=== PATIENT | male | born 1950 | race Caucasian/White ===

== ENCOUNTER 2018-07-07 14:45 | Outpatient (REF) | payer OTHER, MEDICARE, SELFPAY ==
[2018-07-07 20:22] LABS: Anion Gap 6.9 mmol/L (3-11); BUN 20 mg/dL (7-18); CO2 29.1 mmol/L (21.0-32.0); CREATININE 1.43 mg/dL (0.70-1.30); Calcium 9.4 mg/dL (8.5-10.1); Chloride 101 mmol/L (98-107); Estimated GFR 49.18 (mL/min/1.73m2); Glucose 124 mg/dL (70-100); Potassium 4.7 mmol/L (3.5-5.1); Sodium 137 mmol/L (136-145)
[2018-07-07 21:59] LABS: COMMENT (LAB VIEW ONLY) 34.42 mg/dL; Microalb ug/mg Crea 84.3 ug/mg Cr
== END 2018-07-07 15:05 ==
LOC: NCHCN 14:45
PROVIDERS: PCP Internal Medicine; Visit Provider Internal Medicine
DX: E11.9 Type 2 diabetes mellitus without complications (principal); I10 Essential (primary) hypertension
CPT/HCPCS: 80048; 82043; 82570

== ENCOUNTER 2019-03-26 08:01 | Outpatient (REF) | payer BC, MEDICARE, SELFPAY ==
[2019-03-26 21:42] LABS: Anion Gap 10.2 mmol/L (3-11); BUN 30 mg/dL (7-18); CO2 24.8 mmol/L (21.0-32.0); CREATININE 1.47 mg/dL (0.70-1.30); Calcium 8.9 mg/dL (8.5-10.1); Chloride 103 mmol/L (98-107); Estimated GFR 47.64 (mL/min/1.73m2); Glucose 154 mg/dL (70-100); Potassium 4.7 mmol/L (3.5-5.1); Sodium 138 mmol/L (136-145)
[2019-03-26 21:55] LABS: Hemoglobin A1C 6.7 % (4.5-6.2)
== END 2019-03-26 08:21 ==
LOC: NCHCN 08:01
PROVIDERS: PCP Internal Medicine; Visit Provider Internal Medicine
DX: E11.9 Type 2 diabetes mellitus without complications (principal); I10 Essential (primary) hypertension
CPT/HCPCS: 80048; 83036

== ENCOUNTER 2019-08-08 21:53 | Outpatient (REF) | payer BC, MEDICARE, SELFPAY ==
[2019-08-08 22:28] LABS: COMMENT (LAB VIEW ONLY) 98.42 mg/dL; Microalb ug/mg Crea 81.3 ug/mg Cr
== END 2019-08-08 22:13 ==
LOC: NCHCN 21:53
PROVIDERS: PCP Internal Medicine; Visit Provider Internal Medicine
DX: E11.9 Type 2 diabetes mellitus without complications (principal); I49.1 Atrial premature depolarization
CPT/HCPCS: 82043; 82570

== ENCOUNTER 2019-09-20 10:07 | Outpatient (REF) | payer BC, MEDICARE, SELFPAY ==
[2019-09-20 22:29] LABS: Anion Gap 8.1 mmol/L (3-11); BUN 18 mg/dL (7-18); CO2 29.9 mmol/L (21.0-32.0); CREATININE 1.36 mg/dL (0.70-1.30); Calcium 9.5 mg/dL (8.5-10.1); Chloride 102 mmol/L (98-107); Estimated GFR 51.96 (mL/min/1.73m2); Glucose 143 mg/dL (74-106); Potassium 4.9 mmol/L (3.5-5.1); Sodium 140 mmol/L (136-145)
== END 2019-09-20 10:27 ==
LOC: NCHCN 10:07
PROVIDERS: PCP Internal Medicine; Visit Provider Internal Medicine
DX: E11.9 Type 2 diabetes mellitus without complications (principal); I10 Essential (primary) hypertension; E78.5 Hyperlipidemia, unspecified; N18.3 Chronic kidney disease, stage 3 (moderate)
CPT/HCPCS: 80048

== ENCOUNTER 2019-10-05 11:06 | Outpatient (REF) | payer BC, MEDICARE, SELFPAY ==
[2019-10-05 21:05] LABS: Anion Gap 7.6 mmol/L (3-11); BUN 24 mg/dL (7-18); CO2 28.4 mmol/L (21.0-32.0); CREATININE 1.54 mg/dL (0.70-1.30); Calcium 8.9 mg/dL (8.5-10.1); Chloride 101 mmol/L (98-107); Estimated GFR 45.01 (mL/min/1.73m2); Glucose 286 mg/dL (74-106); Potassium 4.6 mmol/L (3.5-5.1); Sodium 137 mmol/L (136-145)
== END 2019-10-05 11:26 ==
LOC: LBN 11:06
PROVIDERS: PCP Internal Medicine; Visit Provider Internal Medicine
DX: I10 Essential (primary) hypertension (principal)
CPT/HCPCS: 80048

== ENCOUNTER 2019-11-01 12:31 | Outpatient (REF) | payer BC, MEDICARE, SELFPAY ==
[2019-11-01 21:24] LABS: Anion Gap 8.1 mmol/L (3-11); BUN 19 mg/dL (7-18); CO2 29.9 mmol/L (21.0-32.0); Calcium 9.6 mg/dL (8.5-10.1); Chloride 102 mmol/L (98-107); Estimated GFR 54.73 (mL/min/1.73m2); Glucose 126 mg/dL (74-106); Sodium 140 mmol/L (136-145)
== END 2019-11-01 12:51 ==
LOC: NCHCN 12:31
PROVIDERS: PCP Internal Medicine; Visit Provider Internal Medicine
DX: I10 Essential (primary) hypertension (principal)
CPT/HCPCS: 80048

== ENCOUNTER 2020-08-21 21:50 | Outpatient (REF) | payer BC, MEDICARE, SELFPAY ==
[2020-08-21 22:19] LABS: COMMENT (LAB VIEW ONLY) 26.31 mg/dL
[2020-08-21 22:21] LABS: Microalb ug/mg Crea 125.4 ug/mg Cr
== END 2020-08-21 22:10 ==
LOC: NCHCN 21:50
PROVIDERS: PCP Internal Medicine; Visit Provider Internal Medicine
DX: I10 Essential (primary) hypertension (principal); E11.9 Type 2 diabetes mellitus without complications; R80.9 Proteinuria, unspecified
CPT/HCPCS: 82043; 82570

== ENCOUNTER 2020-12-12 08:04 | Outpatient (REF) | payer OTHER, MEDICARE, SELFPAY ==
[2020-12-12 13:47] LABS: Hemoglobin A1C 6.1 % (<5.7)
[2020-12-12 15:07] LABS: ALT 27 U/L (16-63); AST 18 U/L (15-37); Albumin 4.3 g/dL (3.4-5.0); Alkaline Phosphatase 106 U/L (46-116); Anion Gap 11.1 mmol/L (3-11); BUN 21 mg/dL (7-18); Bilirubin, Total 0.5 mg/dL (0.2-1.0); CO2 27.9 mmol/L (21.0-32.0); CREATININE 1.4 mg/dL (0.70-1.30); Calcium 8.7 mg/dL (8.5-10.1); Calculated LDL 68 mg/dL (<100); Chloride 104 mmol/L (98-107); Cholesterol 122 mg/dL (<200); Glucose 107 mg/dL (74-106); HDL Cholesterol 44 mg/dL (40-60); Potassium 4.5 mmol/L (3.5-5.1); Sodium 143 mmol/L (136-145); Total Protein 7.6 g/dL (6.4-8.2); Triglyceride 51 mg/dL (<150)
== END 2020-12-12 08:05 | disposition home or self-care (01) ==
LOC: NCHCN 08:04
PROVIDERS: PCP Internal Medicine; Visit Provider Internal Medicine
DX: E11.9 Type 2 diabetes mellitus without complications (principal); E78.5 Hyperlipidemia, unspecified
CPT/HCPCS: 80053; 80061; 83036

== ENCOUNTER 2021-12-24 20:40 | Outpatient (REF) | payer OTHER, MEDICARE, SELFPAY ==
[2021-12-24 21:24] LABS: Anion Gap 5.2 mmol/L (3-11); BUN 21 mg/dL (7-18); CO2 30.8 mmol/L (21.0-32.0); CREATININE 1.4 mg/dL (0.70-1.30); Calcium 9.4 mg/dL (8.5-10.1); Chloride 104 mmol/L (98-107); Estimated GFR 49.96 (mL/min/1.73m2); Glucose 71 mg/dL (74-106); Potassium 4.4 mmol/L (3.5-5.1); Sodium 140 mmol/L (136-145)
[2021-12-24 21:28] LABS: Hemoglobin A1C 6.3 % (<5.7)
[2021-12-24 21:46] LABS: COMMENT (LAB VIEW ONLY) 80.09 mg/dL
[2021-12-24 21:48] LABS: Microalb ug/mg Crea 171.9 ug/mg Cr
== END 2021-12-24 20:41 | disposition home or self-care (01) ==
LOC: NCHCN 20:40
PROVIDERS: PCP Internal Medicine; Visit Provider Internal Medicine
DX: N18.30 Chronic kidney disease, stage 3 unspecified (principal); E11.9 Type 2 diabetes mellitus without complications
CPT/HCPCS: 80048; 82043; 82570; 83036

== ENCOUNTER 2022-05-17 16:01 | Outpatient (REF) | payer OTHER, MEDICARE, SELFPAY ==
[2022-05-17 15:35] LABS: HCT 46.7 % (40.0-50.0); MCH 30.5 pg (27.0-33.0); MCHC 34.3 % (32.0-36.0); MCV 89 fL (80-95); Platelet Count 199 10^3/uL (130-400); RBC 5.25 10^6/uL (4.36-5.78); RDW 13.2 % (11.8-14.1); RDW-SD 42.7 fL; WBC 5.21 10^3/uL (4.4-10.8)
[2022-05-17 15:46] LABS: ALT 13 U/L (16-63); AST 20 U/L (15-37); Albumin 4.2 g/dL (3.4-5.0); Alkaline Phosphatase 95 U/L (46-116); Anion Gap 7.4 mmol/L (3-11); BUN 21 mg/dL (7-18); Bilirubin, Total 0.7 mg/dL (0.2-1.0); CO2 29.6 mmol/L (21.0-32.0); CREATININE 1.4 mg/dL (0.70-1.30); Calcium 9.3 mg/dL (8.5-10.1); Chloride 103 mmol/L (98-107); Glucose 137 mg/dL (74-106); Potassium 4.6 mmol/L (3.5-5.1); Sodium 140 mmol/L (136-145); TSH 2.25 uIU/mL (0.36-3.74); Total Protein 7.2 g/dL (6.4-8.2)
== END 2022-05-17 16:02 | disposition home or self-care (01) ==
LOC: NCHCN 16:01
PROVIDERS: PCP Internal Medicine; Visit Provider Internal Medicine
DX: R53.83 Other fatigue (principal)
CPT/HCPCS: 80053; 85027; 84443

== ENCOUNTER 2023-01-12 13:04 | Outpatient (REF) | payer OTHER, MEDICARE, SELFPAY ==
[2023-01-12 15:03] LABS: COMMENT (LAB VIEW ONLY) 49.67 mg/dL
[2023-01-12 15:10] LABS: Microalb ug/mg Crea 305.4 ug/mg Cr
== END 2023-01-12 13:05 | disposition home or self-care (01) ==
LOC: NCHCN 13:04
PROVIDERS: PCP Internal Medicine; Visit Provider Internal Medicine
DX: E11.9 Type 2 diabetes mellitus without complications (principal); I25.10 Atherosclerotic heart disease of native coronary artery without angina pectoris
CPT/HCPCS: 82043; 82570

== ENCOUNTER 2023-04-08 15:24 | Outpatient (REF) | payer OTHER, MEDICARE, SELFPAY ==
[2023-04-08 16:31] LABS: Hemoglobin A1C 6.1 % (<5.7)
[2023-04-08 18:17] LABS: ALT 35 U/L (16-63); AST 26 U/L (15-37); Albumin 4.7 g/dL (3.4-5.0); Alkaline Phosphatase 108 U/L (46-116); Anion Gap 8.7 mmol/L (3-11); BUN 20 mg/dL (7-18); Bilirubin, Total 0.8 mg/dL (0.2-1.0); CO2 29.3 mmol/L (21.0-32.0); CREATININE 1.3 mg/dL (0.70-1.30); Calcium 9.8 mg/dL (8.5-10.1); Calculated LDL 73 mg/dL (<100); Chloride 101 mmol/L (98-107); Cholesterol 144 mg/dL (<200); Estimated GFR 58.37 (mL/min/1.73m2); Glucose 108 mg/dL (74-106); HDL Cholesterol 51 mg/dL (40-60); Potassium 4.8 mmol/L (3.5-5.1); Sodium 139 mmol/L (136-145); Total Protein 8.5 g/dL (6.4-8.2); Triglyceride 102 mg/dL (<150); Vitamin B12 268 pg/mL (193-986)
== END 2023-04-08 15:25 | disposition home or self-care (01) ==
LOC: NCHCN 15:24
PROVIDERS: PCP Internal Medicine; Visit Provider Internal Medicine
DX: E11.9 Type 2 diabetes mellitus without complications (principal); E78.5 Hyperlipidemia, unspecified; I10 Essential (primary) hypertension; R27.9 Unspecified lack of coordination
CPT/HCPCS: 80053; 80061; 82607; 83036

== ENCOUNTER 2024-01-06 14:55 | Outpatient (REF) | payer OTHER, MEDICARE, SELFPAY ==
[2024-01-06 14:53] LABS: COMMENT (LAB VIEW ONLY) 75.75 mg/dL; Microalb ug/mg Crea 129.6 ug/mg Cr
== END 2024-01-06 14:56 | disposition home or self-care (01) ==
LOC: NCHCN 14:55
PROVIDERS: PCP Internal Medicine; Visit Provider Internal Medicine
DX: E11.9 Type 2 diabetes mellitus without complications (principal)
CPT/HCPCS: 82043; 82570

== ENCOUNTER 2024-03-27 17:18 | Outpatient (REF) | payer OTHER, MEDICARE, SELFPAY ==
[2024-03-27 14:58] LABS: HCT 43.4 % (40.0-50.0); HGB 14.8 g/dL (13.5-17.5); MCH 30.4 pg (27.0-33.0); MCHC 34.1 % (32.0-36.0); MCV 89 fL (80-95); MPV 9.6 fL (8.0-11.0); Platelet Count 224 10^3/uL (130-400); RBC 4.87 10^6/uL (4.36-5.78); RDW 12.9 % (11.8-14.1); RDW-SD 42.2 fL
[2024-03-27 15:51] LABS: ALT 24 U/L (16-63); AST 17 U/L (15-37); Albumin 4.1 g/dL (3.4-5.0); Alkaline Phosphatase 99 U/L (46-116); Anion Gap 7.2 mmol/L (3-11); BUN 24 mg/dL (7-18); CO2 29.8 mmol/L (21.0-32.0); CREATININE 1.4 mg/dL (0.70-1.30); Calcium 9.6 mg/dL (8.5-10.1); Calculated LDL 55 mg/dL (<100); Chloride 103 mmol/L (98-107); Cholesterol 108 mg/dL (<200); Estimated GFR 53.07 (mL/min/1.73m2); Glucose 108 mg/dL (74-106); HDL Cholesterol 40 mg/dL (40-60); Potassium 5.1 mmol/L (3.5-5.1); Sodium 140 mmol/L (136-145); Total Protein 7.5 g/dL (6.4-8.2); Triglyceride 65 mg/dL (<150)
[2024-03-27 16:03] LABS: Hemoglobin A1C 6.3 % (<5.7)
--- OUTSIDE RECORDS SUMMARY | 2024-03-27 17:24 | XMS_ITS | Clinical Summary ---
Author Organization [facility] Address [address] [place] [address] Care Team Providers Care Hand Ii Thermal Cutter Name Role Phone KristaJessie Frank Primary Care Provider [phone] Malini Euceda MD Unavailable [phone] Allergies No known active allergies Medications Medication Sig Dispensed Refills Start Date End Date Status TRULICITY 0.75 mg/0.5 mL subcutaneous penIndications:ty pe 2 diabetes mellitus Inject 0.75 mg into the skin once a week. On Sundays 0 Active ONETOUCH ULTRASOFT LANCETS 0 Active ONETOUCH ULTRA BLUE TEST STRIP test strips 0 Active metFORMIN (GLUCOPHAGE) 1,000 mg tabletIndications :type 2 diabetes mellitus Take 1 Tablet by mouth every morning. Active metFORMIN (GLUCOPHAGE) 1,000 mg tabletIndications :type 2 diabetes mellitus Take 0.5 Tablets by mouth every evening. Active atorvastatin (LIPITOR) 40 mg tabletIndications :hyperlipidemia Take 1 Tablet by mouth every evening. 90 Tablet 3 2 Active [id number]-F chet Oil (FISH OIL) 1,200 (144-216) mg capsule Take 1,200 mg by mouth daily. 2 Active nitroglycerin (NITROSTAT) 0.[address] 1 Tablet under the tongue every 5 minutes as needed for Chest Pain. (if needing to take 3rd tablet, call 911) 25 Tablet 5 3 Active losartan (COZAAR) 25 mg tablet Take 2 Tablets by mouth daily. Active cyanocobalamin, vitamin B-12, 1,000 mcg capsule Take 1,000 mcg by mouth daily. Active magnesium oxide (MAG-OX) 400 mg (241.3 mg magnesium) tablet Take 1 Tablet by mouth daily. Active dilTIAZem (CARDIZEM) 30 mg tabletIndications :Paroxysmal atrial fibrillation ([facility]) Take 1 Tablet by mouth 4 times daily as needed for Other (for atrial fibrillaiton > 100 bpm). 30 Tablet 3 3 Active dilTIAZem (CARDIZEM CD) 120 mg capsuleIndication s:Paroxysmal atrial fibrillation ([facility]) Take 1 Capsule by mouth daily. 90 Capsule 3 3 Active apixaban (ELIQUIS) 5 mg tabletIndications :Atrial flutter, unspecified type ([facility]) Take 1 Tablet by mouth 2 times daily. 180 Tablet 3 3 Active TAMSulosin (FLOMAX) 0.4 mg capsule Take 1 Capsule by mouth daily. 90 Capsule 4 Active fluorouracil (EFUDEX) 5 % cream Apply topically 2 times daily. to scalp and face for up to 2- 3 weeks. May stop when significant redness occurs. KEEP AWAY FROM CHILDREN AND PETS 40 g 1 4 Active TAMSulosin (FLOMAX) 0.4 mg capsule Take 1 Capsule by mouth daily. 90 Capsule 1 4 03/14/20 24 Discontinued Active Problems Patient Care Coordination No te Formatting of this note migh t be different from the original. 09/16/21- [facility] MGP VERBAL JERONIMO (PERM TO SPEAK) STARR GARNICA (), MANDY GARNICA (DAUGHTER). Problem Noted Date Diagnosed Date Paroxysmal atrial fibrillation ([facility]) 024 Atrial fibrillation with rap id ventricular response ([facility]) 04/19/2023 Atrial fibrillation with RVR ([facility]) 3 Elevated troponin 04/19/2023 Acute renal insufficiency 04/19/2023 Coronary artery disease invo lving hoopa coronary artery of hoopa heart without angina pectoris 11/06/2021 Nonrheumatic aortic valve stenosis 11/06/2021 ST elevation myocardial infarction (STEMI) ([facility]) 08/26/2021 Hyperlipidemia 01/29/2014 DM (diabetes mellitus), secondary (HCC-CMS) 01/04 HTN (hypertension) 01/29/2014 BBB (bundle branch block) 01/29/2014 Benign prostatic hyperplasia with urinary retent ion 01/29/2014 Encounters Date Type Department Care Team Description 03/27/[address] [phone] David Bhatt, DO Appointment Related 03/26/2024 8:30 EDT Office Visit [facility] Dermatology 5th Floor [address] [phone] Sameer Murray MD Actinic keratosis (Primary Dx); Lentigines; Seborrheic keratoses 03/14/[address] [phone] David Bhatt, DO Results; Returning Call 03/14/[address] [phone] David Bhatt, Appointment Related 03/14/[address] [phone] David Bhatt, DO Medications Refill 02/14/2024 Telephone [facility] [address] [place] [address] Malini Euceda MD Appointment Related 02/10/2024 13:00 EDT Office Visit [address] [phone] David Bhatt, DO Urothelial cancer ([facility]) (Primary Dx); Benign prostatic hyperplasia with urinary retention; BPH with obstruction/lower urinary tract symptoms; Hematuria, gross 02/09/2024 12:22 EDT - 02/09/2024 23:59 EDT Hospital Encounter [facility] Ultrasound [address] [place] [address] Gross hematuria Discharge Disposition: Home or Self Care 02/08/2024 Orders Only [facility] Urology [address] [phone] David Bhatt, DO Benign prostatic hyperplasia with urinary retention (Primary Dx) 01/26/2024 10:12 EDT - 01/26/2024 23:59 EDT Hospital Encounter [facility] Radiology CT Outpatient - [address] [phone] Paroxysmal atrial fibrillation (HCC-CMS) Discharge Disposition: Home or Self Care 01/16/2024 15:15 EDT Phlebotomy Only [facility] - Outpatient Phlebotomy Drawing [address] [place] [address] Lab, [facility] Op Phlebotomy Gross hematuria 01/16/[address] [phone] David Bhatt, Hematuria 01/04/2024 11:00 EDT Office Visit [facility] [address] [place] [address] Malini Euceda MD Atrial fibrillation with rapid ventricular response (HCC-CMS) (Primary Dx) 12/28/[address] [phone] David Bhatt DO Appointment Related from Last 3 Months Immunizations Name Administration Dates Next Due Covid-19 mRNA Vaccine (PFIZE R COVID-19) PF 0.3 ml IM (12 yrs+) 06/17/2021,12/05/2020,11/14/2020 Historical Hepatitis A Vaccine, Unspecified 06/07,05/16/2006 Historical Polio Vaccine, Unspecified 07/04/2006 ,05/16/2006 Historical Tetanus Diphtheri a Vaccine, Unspecified 07/04/2006,05/16/2006 Historical Typhoid Vaccine, Unspecified 05/16/20 06 Influenza Vaccine =>3yo Split IM 06/27/2013 Influenza Vaccine High Dose (FLUZONE HIGH DOSE) PF 0.7 ml IM (65 yrs+) 06/02/2020 Influenza Vaccine MDCK Quad (FLUCELVAX) PF 0.5 ml IM (6 mos+) 08/08/2019 Influenza Vaccine Quad (FLUZ ONE) MDV w/preserv 0.5 ml IM (6 mos+) 07/07/2018,05/25/2017 Pneumococcal Conjugate Vacci ne 13-Valent (PCV13) (PREVNAR-13) 0.5 mL IM (6 wks+) 06/18/2016 Pneumococcal Polysaccharide (PPSV23) Vaccine (PNEUMOVAX-23) =>2YO SQ/IM 05/23/2020,08/04/2012 Td (Adult) 5 Lf Vaccine (TEN IVAC) Preservative Free =>7yo IM 10/14/2016 Yellow Fever Vaccine SQ 05/16/2006 Zostavax (Zoster Vaccine, Live) SQ 08/04/2012 Surgical History Surgery Date Site/Laterality Comments ELECTRICAL CARDIOVERSION 04/20/2023 Medical History Medical History Date Comments Diabetes mellitus (HCC-CMS) Hypertension Hyperlipidemia BPH (benign prostatic hyperplasia) Social History Tobacco Use Types Packs/Day Years Used Date Smoking Tobacco: Never Smokeless Tobacco: Never Tobacco Cessation:Counseling Given: Not Answered Alcohol Use Standard Drinks/Week Comments Yes 0 (1 standard drink = 0.6 oz pur e alcohol) 1-2 beers on the weekend AUDIT-C Answer Date Recorded Q1: How often do you have a drink containing alc ohol? Not asked 06/18/2020 Q2: How many drinks containi ng alcohol do you have on a typical day when you are drinking? 1 or 2 06/18/2020 Q3: How often do you have six or more drinks on one occasion? Weekly 06/18/2020 Interpersonal Safety Answer Date Record ed Physically Hurt Never 04/06/2020 Verbally Threaten Not on file 04/06/2020 Sex and Gender Information Value Date Recorded Sex Assigned at Not on file Gender Identity Male 08/26/2021 11:28 EST Sexual Orientation Not on file Obstetrics History Last Filed Vital Signs Vital Sign Reading Time Taken Comments Blood Pressure 140/82 01/04/2024 1050 EDT Pulse 86 01/04/2024 1050 EDT Temperature 36.4 ??C (97.6 ??F) 07/24/2023 0205 EST Respiratory Rate 8 07/24/2023 1000 EST Oxygen Saturation 98% 01/04/2024 1050 EDT Inhaled Oxygen Concentration - - Weight 96.6 kg (213 lb) 01/04/2024 1050 EDT Height 182.9 cm (6' 0.01) 01/04/2024 1050 EDT Body Mass Index 28.88 01/04/2024 1050 EDT Plan of Treatment Upcoming Encounters Date Type Department Care Team (Late st Contact Info) Description 04/02/2024 11:15 EDT Telemedicine [facility] Urology - [address] [phone] David Bhatt, [address] [facility] [address] [place] [phone] 07/12/2024 12:30 EST Hospital Encounter [place] [address] [facility] [address] [place] [phone] Rodrigo Noyola MD [address] [place] [phone] Paroxysmal atrial fibrillation ([facility]) 07/12/2024 12:30 EST - 07/12/2024 17:00 EST Surgery [place] [address] [facility] [address] [place] [address] [phone] Rodrigo Noyola MD [address] [place] [phone] Albation A-Fib [[id number] (CPT??)] 07/23/2024 11:00 EST Office Visit [facility] [address] [place], [place] [address] Malini Euceda MD [address] [place] [phone] Health Maintenance Due Date Last Done Comments Eye Exam 1950 Foot Exam 1950 Hemoglobin A1C (Ha1C) 1950 Hepatitis C Screen 1950 Microalbumin/Creatinine Ratio 1950 RSV Immunization ( o r 60+ Years) (1 - 1-dose 60+ series) 2010 Advance Directive Review 01/29/2019 COVID-19 Vaccine ( - 2022-2 4 season) 2023 06/17/2021, 12/05/2020, 11/14/2020 Lipid Profile Screening (Cholesterol) 03/28/2024 03/28/2023, 11/13/2021, 08/27/2021 Fall Risk Screening 01/03/2025 01/04/2024, 03/28/2023, 11/06/2021, Additional history exists Procedures Procedure Name Priority Date/Time Associated Diagnosis Comments POCT URINE DIPSTICK, CLINITEK Routine 02/10/2024 12:57 EDT Benign prostatic hyperplasia with urinary retention NON BIOFUELS ENGINEERING MANAGER/FNA CYTOLOGY Routine 02/10/2024 12:52 EDT Benign prostatic hyperplasia with urinary retention Hematuria, gross POCT CSN BARCODE URINE DIPSTICK Routine 02/10/2024 12:44 EDT Benign prostatic hyperplasia with urinary retention POCT URINE CLINITEK (DIPSTICK) - DOES NOT REFLEX Routine 02/10/2024 12:44 EDT Benign prostatic hyperplasia with urinary retention US RENAL/BLADDER COMPLETE Routine 02/09/2024 12:[address] CARDIAC ANGIO PULMONARY VEIN Routine 01/26/2024 11:03 EDT Paroxysmal atrial fibrillation (HCC-CMS) POCT CREATININE, ISTAT Routine 01/26/2024 10:44 EDT URINE CHEMICAL (DIP) & SEDIMENT (MICRO) WITHOUT REFLEX TO CULTURE Routine 01/16/2024 15:16 EDT Gross hematuria BACTERIAL CULTURE, URINE Routine 01/16/2024 15:16 EDT Gross hematuria LIPID PROFILE (INCLUDES CHOLESTEROL, TRIGLYCERIDES, HDL, LDL) Routine 03/28/2023 16:03 EDT Nonrheumatic aortic valve stenosis Acute coronary thrombosis not resulting in myocardial infarction ([facility]) from Last 3 Months or Most Recently Relevant to Health Maintenance Results * (ABNORMAL) POCT URINE DIPSTICK, CLINITEK (02/10/2024 12:57 EDT) Color, UA Yellow Yellow 02/10/2024 12:59 [facility] Clarity, UA Clear Clear 02/10/2024 12:59 [facility] Glucose, UA Negative Negative mg/dL 02/10/2024 12:59 [facility] Bilirubin, UA Negative Negative 02/10/2024 12:59 [facility] Ketones, UA Negative Negative 02/10/2024 12:59 [facility] Specific [place], Urine 1.015 1.001 - 1.030 02/10/2024 12:59 [facility] Blood, UA 2+(A) Negative 02/10/2024 12:59 [facility] pH, UA 7.0 <8.5 02/10/2024 12:59 [facility] Protein, UA 1+(A) Negative mg/dL 02/10/2024 12:59 [facility] Urobilinogen, UA 0.2 0.2 - 1.0 mg/dL 02/10/2024 12:59 [facility] Nitrite, UA Negative Negative 02/10/2024 12:59 [facility] Leuk Esterase 3+(A) Negative 02/10/2024 12:59 [facility] HN LAB COMMENT (CLINITEK, UR) Test performed at [facility] 02/10/2024 12:59 [facility] Urine URINE SPECIMEN OBTAINED BY CLEAN CATCH PROCEDURE / Unknown 02/10/2024 12:57 EDT 02/10/2024 12:59 EDT David Bhatt DO POINT OF CARE TEST ORDERABLES [facility] [address] [place], [place] [phone] * NON BIOFUELS ENGINEERING MANAGER/FNA CYTOLOGY (02/10/2024 12:52 EDT) Note to Patient The following pathology results have been interpreted by your pathologist and may be available to you before your health provider has had the opportunity to review them. Please allow time for your provider to receive these results and explore management options, if applicable. 02/14/2024 12:20 EDT [facility] Final Diagnosis A. URINE, VOIDED, CYTOLOGIC EVALUATION: - Negative for high grade urothelial carcinoma. - Rare urothelial cells and abundant acute inflammation present. 02/14/2024 12:20 EDT [facility] Attestation There was significant resident/fellow involvement in the diagnostic evaluation of this case. By the signature below, the attending physician certifies that they have personally conducted a gross and/or microscopic examination of the described specimens and rendered or confirmed the above diagnosis. 02/14/2024 12:20 T [facility] at 1220 Clinical History no sxs; gross hematuria 02/14/2024 12:20 [facility] Gross Description A. 100cc's of opaque yellow fluid were received and processed by selective cellular enhancement technique. 02/14/2024 12:20 EDT [facility] Resident/Francisco w: Amena Tate MD 02/14/2024 12:20 T [facility] Performing Lab [facility] 02/14/2024 12:20 T [facility] Scanned Images 02/14/2024 12:20 T [facility] Urine URINE SPECIMEN FROM URETHRA / Unknown Urine Collect / Unknown 02/10/2024 12:52 EDT 02/13/2024 6:46 EDT David Bhatt DO PATHOLOGY ORDERABLE S Performing Organization Address City/[facility]/ZIP Co de Phone Number [facility] [address] [place] [address] * POCT CSN BARCODE URINE DIPSTICK (02/10/2024 12:44 EDT) Urine URINE SPECIMEN OBTAINED BY CLEAN CATCH PROCEDURE / Unknown 02/10/2024 12:44 EDT 02/10/2024 12:44 EDT David Bhatt DO LAB INFO SERVICE AN D SUPPORT & PHONE RESULT Performing Organization Address [facility] Co de Phone Number [facility] [address] [place] [address] * US RENAL/BLADDER COMPLETE (02/09/2024 12:53 EDT) Anatomical Region Laterality Modality Abdomen, Body Ultrasound 02/10/2024 16:5 1 EDT Impressions 02/10/2024 16:51 EDT 1. Bilateral renal cysts. 2. Post void residual urinary bladder volume of 556 mL. 3. Generalized urinary bladder wall thickening which has an irregular-corrugated appearance. 4. Mild prostatomegaly, incompletely visualized. [id number] Narrative 02/10/2024 16:51 EDT US RENAL/BLADDER COMPLETE ??02/09/2024 12:29 PM SIGNS AND SYMPTOMS/COMMENTS: gross hematuria;R31.0:Gross hematuria COMPARISON: CT scan of the abdomen and pelvis 01/11/2022 and abdominal ultrasound 11/13/2013. TECHNIQUE: Grayscale and Doppler ultrasound evaluation of the kidneys and bladder was performed. FINDINGS: RIGHT KIDNEY: The right kidney measures 10.9 cm in length. 11 mm simple cyst in the right kidney upper pole. No other focal renal lesion, renal stone or hydronephrosis. LEFT KIDNEY: The left kidney measures 9.7 cm in length. Left renal simple cyst measuring 10 mm and 14 mm. No other focal renal lesion, renal stone or hydronephrosis. URINARY BLADDER: The prevoid bladder volume is 747 mL. The post void urinary bladder volume is 556 mL. There is generalized thickening of the urinary bladder wall which has an irregular/corrugated appearance. Both ureteral jets are visualized. There is indentation of the base of the urinary bladder by a slightly enlarged prostate. Resulting Agency Comment [id number] Procedure Note Fito Gurrola MD - 02/10/2024 US RENAL/BLADDER COMPLETE 02/09/2024 12:29 PM SIGNS AND SYMPTOMS/COMMENTS: gross hematuria;R31.0:Gross hematuria COMPARISON: CT scan of the abdomen and pelvis 01/11/2022 and abdominalultrasound 11/13/2013. TECHNIQUE: Grayscale and Doppler ultrasound evaluation of the kidneys andbladder was performed. FINDINGS: RIGHT KIDNEY: The right kidney measures 10.9 cm in length. 11 mm simplecyst in the right kidney upper pole. No other focal renal lesion, renalstone or hydronephrosis. LEFT KIDNEY: The left kidney measures 9.7 cm in length. Left renal simplecyst measuring 10 mm and 14 mm. No other focal renal lesion, renal stoneor hydronephrosis. URINARY BLADDER: The prevoid bladder volume is 747 mL. The post voidurinary bladder volume is 556 mL. There is generalized thickening of theurinary bladder wall which has an irregular/corrugated appearance. Bothureteral jets are visualized. There is indentation of the base of theurinary bladder by a slightly enlarged prostate. IMPRESSION 1. Bilateral renal cysts. 2. Post void residual urinary bladder volume of 556 mL. 3. Generalized urinary bladder wall thickening which has anirregular-corrugated appearance. 4. Mild prostatomegaly, incompletely visualized. [id number] David Bhatt DO IMG US ORDERABLES * CT CARDIAC PULMONARY VEIN (01/26/2024 11:03 EDT) Anatomical Region Laterality Modality Chest Computed Tomogra phy 01/26/2024 11:3 3 EDT Narrative 01/26/2024 11:[address] CARDIAC PULMONARY VEIN ??01/26/2024 10:32 AM Clinical History/Comments: AF;I48.0:Paroxysmal atrial fibrillation (HCC-CMS) Technique: CTA of the heart was performed with ECG-gating and with the intravenous administration of contrast material. Images were reconstructed at the 30-35-40-45% phases of the cardiac cycle. 3D advanced post-processing was performed utilizing a combination of MIP and MPR techniques with physician participation and supervision. This CT used either dose modulation and/or iterative reconstruction techniques to lower radiation dose. Comparison: None. Findings: CT of the chest with contrast performed tailored for left atrium and pulmonary vein opacification. The left atrium is dilated. The maximum anterior to posterior diameter measurement is 5.0 cm. The pulmonary veins demonstrate variant anatomy. There is independent ostium of the right inferior pulmonary vein (superior segment). There is independent ostium of the right middle pulmonary vein. No aberrant pulmonary veins are seen. Esophagus courses posterior to the left atrium. The left atrial appendage is well opacified and without thrombus. Additional findings: There is mild coronary artery atherosclerosis. Aortic annular and valvular calcifications are present. Ascending aorta is normal in caliber measuring approximately 3.8 cm. The Main pulmonary artery measures 2.8 cm. There is no pericardial effusion. Small hiatal hernia is present. Respiratory motion artifact is present. There are no suspicious pulmonary nodules. [id number] Resulting Agency Comment [id number] Procedure Note Cassandra Bach MD - 01/26/2024 CT CARDIAC PULMONARY VEIN 01/26/2024 10:32 AM Clinical History/Comments: AF;I48.0:Paroxysmal atrial fibrillation ([facility]) Technique: CTA of the heart was performed with ECG-gating and with the intravenousadministration of contrast material. Images were reconstructed at rnc20-18-97-45% phases of the cardiac cycle. 3D advanced post-processing wasperformed utilizing a combination of MIP and MPR techniques with physicianparticipation and supervision. This CT used either dose modulation and/or iterative reconstructiontechniques to lower radiation dose. Comparison: None. Findings: CT of the chest with contrast performed tailored for left atrium andpulmonary vein opacification. The left atrium is dilated. The maximum anterior to posterior diametermeasurement is 5.0 cm. The pulmonary veins demonstrate variant anatomy. There is independentostium of the right inferior pulmonary vein (superior segment). There isindependent ostium of the right middle pulmonary vein. No aberrantpulmonary veins are seen. Esophagus courses posterior to the leftatrium. The left atrial appendage is well opacified and without thrombus. Additional findings: There is mild coronary artery atherosclerosis. Aortic annular and valvularcalcifications are present. Ascending aorta is normal in caliber measuringapproximately 3.8 cm. The Main pulmonary artery measures 2.8 cm. There is no pericardial effusion. Small hiatal hernia is present. Respiratory motion artifact is present.There are no suspicious pulmonary nodules. [id number] Rodrigo Noyola MD IMG CT ORDERABLE S * (ABNORMAL) POCT CREATININE, ISTAT (01/26/2024 10:44 EDT) [facility] Creatinine, Venous, i-STAT 1.5(H) 0.7 - 1.3 mg/dL 01/26/2024 10:46 EDT [facility] eGFR, Calculated, i-STAT 49(L) >60 mL/min/1.7 3m2 01/26/2024 10:46 EDT [facility] Blood VENOUS BLOOD / Unknown 01/26/2024 10:44 EDT 01/26/2024 10:46 EDT Narrative [facility] - 01/26/2024 10:46 EDT Test Performed by Radiology Imaging Provider Unknown POINT OF CARE TEST O RDERABLES [facility] [address] [place] [address] * (ABNORMAL) UA CHEMICAL & SEDIMENT (01/16/2024 15:16 EDT) Color UA Yellow Colorless, Yellow 01/16/2024 17:49 EDT [facility] Clarity UA Cloudy(A) Clear 01/16/2024 17:49 EDT [facility] Glucose UA Negative Negative mg/dL 01/16/2024 17:49 EDT [facility] Bilirubin UA Negative Negative 01/16/2024 17:49 EDT [facility] Ketones UA Negative Negative 01/16/2024 17:49 EDT [facility] Specific [place], Urine 1.020 1.001 - 1.030 01/16/2024 17:49 [facility] Blood UA 3+(A) Negative 01/16/2024 17:49 [facility] Nitrite UA Negative Negative 01/16/2024 17:49 [facility] Leukocyte Esterase UA 1+(A) Negative 01/16/2024 17:49 [facility] Protein UA Trace(A) Negative mg/dL 01/16/2024 17:49 [facility] pH, UA 6.0 <8.5 01/16/2024 17:49 [facility] Urine RBC Count, Manual >50(A) 0 - 2 Cells/HPF 01/16/2024 17:49 [facility] Urine WBC Count >50(A) 0 - 3 Cells/HPF 01/16/2024 17:49 [facility] Urine Squamous Count, Manual None Seen None Seen Cells/HPF 01/16/2024 17:49 [facility] Urine Hyaline Cast Count, Manual <=10 <=10 Casts/LPF 01/16/2024 17:49 [facility] Urine Bacteria Count, Manual Moderate(A) None Seen Bacteria/HP F 01/16/2024 17:49 [facility] Urobilinogen UA 0.2 0.2-1.0 mg/dL mg/dL 01/16/2024 17:49 [facility] Urine URINE SPECIMEN OBTAINED BY CLEAN CATCH PROCEDURE / Unknown Urine Collect / Unknown 01/16/2024 15:16 EDT 01/16/2024 17:[address] [facility] - 01/16/2024 17:49 EDT Urine Sediment Analysis results are unreliable on urines that are unrefrigerated for >2 hrs or refrigerated >8 hrs. David Bhatt DO URINALYSIS ORDERABL ES [facility] [address] [place] [address] * BACTERIAL CULTURE, URINE (01/16/2024 15:16 EDT) Pathologist [facility] Organism ID No Growth VITEK SUSCEPTIBILITY 01/18/2024 11:15 EDT [facility] Urine URINE SPECIMEN OBTAINED BY CLEAN CATCH PROCEDURE / Unknown Urine Collect / Unknown 01/16/2024 15:16 EDT 01/16/2024 17:12 EDT David Bhatt DO MICROBIOLOGY - GENE RAL ORDERABLES Performing Organization Address City/State/[facility] Co de Phone Number [facility] [address] [place] [address] * LIPID PROFILE (INCLUDES CHOLESTEROL, TRIGLYCERIDES, HDL, LDL) (03/28/2023 16:03 EDT) Pathologist [facility] Cholesterol 127 <200 mg/dL 03/28/2023 17:07 [facility] Comment:Note that therapeuti c goals will differ between patients based on cardiac risk factors and current medical therapy. HDL 43 >=40 mg/dL 03/28/2023 17:07 [facility] Comment:Note that therapeuti c goals will differ between patients based on cardiac risk factors and current medical therapy. LDL, Calculated 58 <160 mg/dL 17:07 [facility] Comment:Note that therapeuti c goals will differ between patients based on cardiac risk factors and current medical therapy. Triglyceride 130 <=150 mg/dL 03/28/2023 17:07 [facility] Comment:Note that therapeuti c goals will differ between patients based on cardiac risk factors and current medical therapy. Chol/HDL Ratio 3.0 See Note 03/28/2023 17:07 [facility] Comment: NOTE: Desirable Ratio = <4.1 Patient At Risk Ratio = >5.0(Males) ?>6.0(Females) Non HDL Cholesterol 84 <160 mg/dL 03/28/2023 17:07 [facility] Comment:Note that therapeuti c goals will differ between patients based on cardiac risk factors and current medical therapy. Blood VENOUS BLOOD / Unknown Venipuncture / Unknown 03/28/2023 16:03 EDT 03/28/2023 16:30 EDT Malini Euceda MD CHEMISTRY & BLOOD GA S ORDERABLES [facility] [address] [place] [address] from Last 3 Months or Most Recently Relevant to Health Maintenance Advance Directives For more information, please contact: [phone] Documents on File Type Date Recorded Patient Supervisor Dry Cell Assembly Expl anation Advance Directive 01/29/2014 9:59 * Full Code (Latest Code Status on File) Date Activated Date Inactivated Comments 04/19/2023 4:16 04/21/2023 13:13 Question Answer Comments When the patient has NO PULSE: Full Code / CPR Who Made the Decision? Patient * Full Code Date Activated Date Inactivated Comments 08/26/2021 16:38 08/27/2021 21:29 Question Answer Comments When the patient has NO PULSE: Full Code / CPR Who Made the Decision? Default/Not Discussed * Full Code Date Activated Date Inactivated Comments 01/29/2014 18:39 01/30/2014 14:33 Care Teams Hand Ii Thermal Cutter Relationship Specialty Start Date End Date Jessie Velasco [address] [place] [address] PCP - General Internal Medicine - Primary Care 08/26/21 Malini Euceda MD [address] [place] [address] [phone] Consulting Clinician Cardiovascular Disease 11/12/21
--- OUTSIDE RECORDS SUMMARY | 2024-03-27 17:24 | XMS_ITS | Encounter Summary ---
Author Organization [facility] Address [address] [place] [address] Care Team Providers Care Field Superintendent Name Role Phone Jessie Velasco Frank Primary Care Provider Malini Euceda MD Unavailable [phone] Reason for Visit * Reason Onset Date Comments Appointment Related 03/14/2024 Encounter Details Date Type Department Care Team (Late st Contact Info) Description 03/14/2024 Telephone [facility] Urology - [address] [address] David Bhatt, DO 111 [facility], Level 5 [place] [phone] Appointment Related Social History Tobacco Use Types Packs/Day Years Used Date Smoking Tobacco: Never Smokeless Tobacco: Never Alcohol Use Standard Drinks/Week Comments Yes 0 [...] 11:28 EST Sexual Orientation Not on file documented as of this encounter Functional Status Functional Status Response Date of Assess ment Are you deaf or do you have serious difficulty h earing? No 04/19/2023 Are you blind or do you have serious difficulty seeing, even when wearing glasses? No 04/19/2023 Do you have serious difficul ty walking or climbing stairs? (5 years old or older) No 04/19/2023 Do you have difficulty dress ing or bathing? (5 years old or older) No 04/19/2023 Because of a physical, menta l, or emotional condition, do you have difficulty doing errands alone such as visiting a doctor's office or shopping? (15 years old or older) No 04/19/2023 Cognitive Status Response Date of Assessm ent Because of a physical, menta l, or emotional condition, do you have serious difficulty concentrating, remembering, or making decisions? (5 years old or older) No 04/19/2023 documented as of this encounter Miscellaneous Notes * Telephone Encounter - Celestino Bazan - 03/14/2024 0839 EDT Spoke to pt, pt wondering when Perrapato will call to speak about urine sample left 02/09, telemed scheduled Friday 04/06 to speak about urine sample/results. Pt also inquired about medication refill, [facility] and nursing will followup on medication * Telephone Encounter - Tomeka Quiñones - 03/14/2024 0822 EDT Patient is reaching out to get scheduled. Please reach out to discuss and follow up with patient when possible. documented in this encounter Plan of Treatment Upcoming Encounters Date Type Department Care Team (Late st Contact Info) Description 04/02/2024 11:15 EDT Telemedicine [facility] Urology - [address] [phone] David Bhatt, 111 [facility], [facility] 5 [place] [phone] 07/12/2024 12:30 EST Hospital Encounter [place] [address] [address] [place] [phone] Rodrigo Noyola MD [address] [place] [phone] Paroxysmal atrial fibrillation ([facility]-CMS) 07/12/2024 12:30 EST - 07/12/2024 17:00 EST Surgery [place] [address] [address] [place] [phone] Rodrigo Noyola MD [address] [place] [phone] Bryce Woo [[id number] (CPT??)] 07/23/2024 11:00 EST Office Visit [facility] [address] [place] [address] Malini Euceda MD [address] [place] [phone] documented as of this encounter Visit Diagnoses Not on filedocumented in this encounter Care Teams Field Superintendent Relationship Specialty Start Date End Date Jessie Velasco 4 [facility] [place], [place] [phone] PCP - General Internal Medicine - Primary Care 08/26/21 Malini Euceda MD [address] [place] [address]A [address] [place] [phone] Consulting Clinician Cardiovascular Disease 11/12/21 documented as of this encounter
--- OUTSIDE RECORDS SUMMARY | 2024-03-27 17:24 | XMS_ITS | Encounter Summary ---
Author Organization [facility] Address [address] [place] [address] Care Team Providers Care Helmet Coverer Name Role Phone Jessie Velasco Frank Primary Care Provider [phone] Malini Euceda MD Unavailable [phone] Reason for Visit * Reason Onset Date Comments Appointment Related 03/27/2024 Encounter Details Date Type Department Care Team (Late st Contact Info) Description 03/27/2024 Telephone [facility] Urology - [address] [address] David Bhatt, DO 111 [facility], Level 5 [place] [phone] Appointment Related Social History Tobacco Use Types [...] * Telephone Encounter - Celestino Bazan - 03/27/2024 0909 EDT Spoke to pt, moved telemed to Monday 04/02 @ 11.15 am documented in this encounter Plan of Treatment Upcoming Encounters Date Type Department Care Team (Late st Contact Info) Description 04/02/2024 11:15 EDT Telemedicine [facility] Urology - [facility] [address] [place], [place] [phone] David Bhatt, 111 [facility], Level [address] [place] [address] 07/12/2024 12:30 EST Hospital Encounter [place] 1 EP Lab [address] [place], [place] [phone] Rodrigo Noyola MD [address] [phone] Paroxysmal atrial fibrillation ([facility]-CMS) 07/12/2024 12:30 EST - 07/12/2024 17:00 EST Surgery [place] [address] EP [address] [place] [phone] Rodrigo Noyola MD [address] [place] [phone] Albation A-Fib [[id number] (CPT??)] 07/23/2024 11:00 EST Office Visit [facility] Cardiology Clinic [address] [place] [address] Malini Euceda MD [address] [place] [phone] documented as of this encounter Visit Diagnoses Not on filedocumented in this encounter Care Teams Helmet Coverer Relationship Specialty Start Date End Date Jessie Velasco [address] [place], [place] [phone] PCP - General Internal Medicine - Primary Care 08/26/21 Malini Euceda MD [address] [place] [address]A [address] [phone] Consulting Clinician Cardiovascular Disease 11/12/21 documented as of this encounter
--- OUTSIDE RECORDS SUMMARY | 2024-03-27 17:24 | XMS_ITS | Encounter Summary ---
Author Organization [facility] Address [address] [place] [address] Care Team Providers Care Inspector Hairspring Name Role Phone MercyrosieJessie Frank Primary Care Provider Malini Euceda MD Unavailable [phone] Reason for Visit * Reason Comments Medications Refill Encounter Details Date Type Department Care Team (Late st Contact Info) Description 03/14/2024 Refill [facility] Urology - [address] [phone] David Bhatt, DO 111 [facility], Level [address] [place] [phone] Medications Refill Social History Tobacco Use Types Packs/Day Years [...] No 04/19/2023 documented as of this encounter Ordered Prescriptions Prescription Sig Dispensed Refills Start Date End Da te TAMSulosin (FLOMAX) 0.4 mg capsule Take 1 Capsule by mouth daily. 90 Capsule 03/14/2024 documented in this encounter Plan of Treatment Upcoming Encounters Date Type Department Care Team (Late st Contact Info) Description 04/02/2024 11:15 EDT Telemedicine [facility] Urology - [address] [phone] David Bhatt DO 111 [facility], Level [address] [place] [address] 07/12/2024 12:30 EST Hospital Encounter [place] [address] EP Lab [address] [place], [place] [phone] Rodrigo Noyola MD 111 [facility] 1 [place] [address] Paroxysmal atrial fibrillation (HCC-CMS) 07/12/2024 12:30 EST - 07/12/2024 17:00 EST Surgery [place] [address] EP Lab [address] [place] [address] Rodrigo Noyola MD [address] [phone] Albation A-Fib [[id number] (CPT??)] 07/23/2024 11:00 EST Office Visit [facility] Cardiology Clinic [address] [place] [address] Malini Euceda MD [address] [phone] documented as of this encounter Visit Diagnoses Not on filedocumented in this encounter Discontinued Medications Medication Sig Discontinue Reason Start Date End Da te TAMSulosin (FLOMAX) 0.4 mg capsule Take 1 Capsule by mouth daily. 10/04/2023 03/14/2024 documented as of this encounter Care Teams Inspector Hairspring Relationship Specialty Start Date End Date Jessie Velasco [address] [place] [address] PCP - General Internal Medicine - Primary Care 08/26/21 Malini Euceda MD [address] [place] [address]A [address] [place] [phone] Consulting Clinician Cardiovascular Disease 11/12/21 documented as of this encounter
--- OUTSIDE RECORDS SUMMARY | 2024-03-27 17:24 | XMS_ITS | Encounter Summary ---
Author Organization [facility] Address [facility] [place] [address] Care Team Providers Care Film Examiner Name Role Phone Unavailable Primary Care Provider Unavailabl e Encounter Details Date Type Department Care Team (Latest Contact Info) Description 10/14/2016 9:23 PM EST - 10/14/2016 11:59 PM EST [place] [phone] Discharge Disposition: Home Social History Tobacco Use Types Packs/Day Years Used Date Smoking Tobacco: Never Assessed Sex and Gender Information Value Date Recorded Sex Assigned at Not on file Gender Identity Not on file Sexual Orientation Not on file documented as of this encounter Plan of Treatment Not on file documented as of this encounter Procedures Procedure Name Priority Date/Time Associated Diagnosis Comments SURGICAL PATHOLOGY REPORT Routine 10/14/2016 12:00 PM EST documented in this encounter Results * Surgical Pathology Report (10/14/2016 12:00 PM EST) FINAL DIAGNOSIS (AP) [id number] ?Location: [facility] The signing pathologist has (i) examined the relevant preparation(s) for the specimen(s) and (ii) rendered or confirmed the diagnosis(es). . ?Surgical Pathology DIAGNOSIS Skin, left back, shave ?? 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 Electronically signed by: ??Amena Gaston MD Verified: ??10/15/2016 ?Dermatopathol ogist CLINICAL INFORMATION Specimen Submitted: A - Skin, L back, shave (1) Clinical History: 3 cm pink scaly plaque Clinical Diagnosis: Rome 's? Referring Identifier: ?(not provided) SPECIMEN PROCESSING A - Labeled/Fixativ e: Left back, formalin. Quantity/Size: Single, 0.7 x 0.5 cm shave. Tissue Description: Mendez pink skin. Sections/Proces sing: Inked, trisected. (T1) ??cjl 10/15/2016 12:19 PM EST [facility] 10/14/2016 12:0 0 PM EST Jahaira Hyde MD PATHOLOGY/CYTOLOGY O RDERABLES [facility] [place] [address] documented in this encounter Visit Diagnoses Not on filedocumented in this encounter
--- OUTSIDE RECORDS SUMMARY | 2024-03-27 17:24 | XMS_ITS | Encounter Summary ---
Author Organization [facility] Address [address] [place] [address] Care Team Providers Care Internal Communications Manager Name Role Phone Jessie Velasco Primary Care Provider Malini Euceda MD Unavailable [phone] Reason for Visit * Reason Comments New Patient Visit Skin lesions (back a nd chest). Spots of concern on face. Personal and family history of skin cancer. * Consult (48 Hrs (Urgent)) - Authorization Not Required Specialty Diagnoses / Procedures Referred By Janie weinstein Referred To Contact Dermatology Diagnoses Disorder of the skin and subcutaneous tissue, unspecified Jessie Velasco [address] [place] [address] [facility] Dermatology [address] [place] [address] Referral ID Status Reason Start Date Expiration Date Visits Requested Visits Authorized [id number] Authorization Not Required 1 1 Encounter Details Date Type Department Care Team (Late st Contact Info) Description 03/26/2024 8:30 EDT Office Visit [facility] Dermatology 5th [address] [phone] Sameer Murray MD [address] [place] [address], [facility], Level 5 [place] [address] Actinic keratosis (Primary Dx); Lentigines; Seborrheic keratoses Social History Tobacco Use Types Packs/Day Years [...] Dispensed Refills Start Date End Da te fluorouracil (EFUDEX) 5 % cream Apply topically 2 times daily. to scalp and face for up to 2- 3 weeks. May stop when significant redness occurs. KEEP AWAY FROM CHILDREN AND PETS 40 g 1 03/26/2024 documented in this encounter Progress Notes * Sameer Murray MD - 03/26/2024 0830 EDT Dermatology Outpatient Clinic Note 03/26/2024 History of Present Illness: Patient is a 73 y.o. male who presents with a chief complaint of: New Patient Visit (Skin lesions (back and chest). Spots of concern on face. Personal and family history of skin cancer. 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 See documentation in [facility] for medical, surgical, social and family history, which were reviewed atthis visit. Present medications, allergies, review of systems are also documented and were all reviewed at this visit. EXAM: Examined face neck trunk and both arms and legs Gritty keratoses c/w AKs scalp and face Many lentigines and hawk Ks IMPRESSION & PLAN: # AKs rx topical 5fu bid x 2-3 wks # lentigines and hawk Ks, Sun protection Rtc yr/prn Sameer Murary MD 03/26/2024 8:30 documented in this encounter Plan of Treatment Upcoming Encounters Date Type Department Care Team (Late st Contact Info) Description 04/02/2024 11:15 EDT Telemedicine [facility] Urology - [facility] [address] [place], [place] [address] David Bhatt, 111 [facility], Level [address] [place] [phone] 07/12/2024 12:30 EST Hospital Encounter [place] 1 EP Lab [address] [place], [place] [address] Rodrigo Noyola MD [address] [phone] Paroxysmal atrial fibrillation (HCC-CMS) 07/12/2024 12:30 EST - 07/12/2024 17:00 EST Surgery [address] Lab [address] [place], [place] [address] Rodrigo Noyola MD [address] [phone] Albation A-Fib [[id number] (CPT??)] 07/23/2024 11:00 EST Office Visit [facility] Cardiology Clinic [address] [place] [address] Malini Euceda MD [address] [place] [phone] documented as of this encounter Visit Diagnoses Diagnosis Paroxysmal atrial fibrillation (HCC-CMS)- Primary Atrial fibrillation Actinic keratosis- Primary Lentigines Other dyschromia Seborrheic keratoses Paroxysmal atrial fibrillation (HCC-CMS) Atrial fibrillation documented in this encounter Care Teams Internal Communications Manager Relationship Specialty Start Date End Date Jessie Velasco [address] [place], [place] [address] PCP - General Internal Medicine - Primary Care 08/26/21 Malini Euceda MD 130 [facility]-A [address] [place] [phone] Consulting Clinician Cardiovascular Disease 11/12/21 documented as of this encounter
--- OUTSIDE RECORDS SUMMARY | 2024-03-27 17:24 | XMS_ITS | Encounter Summary ---
Author Organization [facility] Address [address] [place] [address] Care Team Providers Care Rn Cardiovascular Icu Name Role Phone Jessie Velasco Primary Care Provider Malini Euceda MD Unavailable [phone] Reason for Visit * Reason Onset Date Comments Appointment Related 02/14/2024 Encounter Details Date Type Department Care Team (Late st Contact Info) Description 02/14/2024 Telephone [facility] Cardiology Clinic [address] [place] [address] Malini Euceda MD [address] [place] [address] 1 [place] [address] Appointment Related Social History Tobacco Use Types [...] encounter Miscellaneous Notes * Telephone Encounter - David Chen - 02/16/2024 1043 EDT LDM to keep 07/23/24 OV with Ok * Telephone Encounter - David Chen - 02/14/2024 1339 EDT Pt was called to reschedule 08/15/24 OV. I rescheduled to 07/23/24 as he is to have ablation 07/12/24. Is this FU too soon? Other option would be call week in end of July or OV in Sep? Please advise documented in this encounter Plan of Treatment Upcoming Encounters Date Type Department Care Team (Late st Contact Info) Description 04/02/2024 11:15 EDT Telemedicine [facility] Urology [address] [address] David Bhatt, DO 111 [facility], Level 5 [place] [phone] 07/12/2024 12:30 EST Hospital Encounter [place] [address] EP Lab [address] [place], [place] [phone] Rodrigo Noyola MD [address] [place] [phone] Paroxysmal atrial fibrillation ([facility]) 07/12/2024 12:30 EST - 07/12/2024 17:00 EST Surgery [place] [address] EP Lab [address] [place], [place] [phone] Rodrigo Noyola MD [address] [place] [phone] Albation A-Fib [[id number] (CPT??)] 07/23/2024 11:00 EST Office Visit [facility] Cardiology Clinic [address] [place] [address] Malini Euceda MD [address] [place] [phone] documented as of this encounter Visit Diagnoses Not on filedocumented in this encounter Care Teams Rn Cardiovascular Icu Relationship Specialty Start Date End Date Jessie Velasco 4 [facility] [place], [place] [phone] PCP - General Internal Medicine - Primary Care 08/26/21 Malini Euceda MD [address] [place] [address]A [address] [phone] Consulting Clinician Cardiovascular Disease 11/12/21 documented as of this encounter
--- OUTSIDE RECORDS SUMMARY | 2024-03-27 17:24 | XMS_ITS | Encounter Summary ---
Author Organization [facility] Address [address] [place] [address] Care Team Providers Care Supervisor Cell Operation Name Role Phone KristaJessie Frank Primary Care Provider [phone] Malini Euceda MD Unavailable [phone] Reason for Visit * Reason Onset Date Comments Results 03/14/2024 Returning Call 03/14/2024 Encounter Details Date Type Department Care Team (Late st Contact Info) Description 03/14/2024 Telephone [facility] Urology - [address] [phone] David Bhatt, DO 111 [facility], Level [address] [place] [address] Results; Returning Call Social History Tobacco Use Types Packs/Day Years [...] encounter Miscellaneous Notes * Telephone Encounter - Rebecca Mayorga RN - 03/14/2024 1433 EDT Reviewed UA with pt from 02/09, and reassurance provided. He is on 1 tab flomax. He is getting up 3-4 times/night. He drinks 1 gallon/day in order to have a good flow. Stops drinking fluids at 7pm and goes to bed at 10pm. He drinks water + a lot of iced tea + Athletic beer. Discussed volume and bladder irritants Wondering about 2 tab. He will talk to him about this at appt in Apr. * Telephone Encounter - Zita Ibarra - 03/14/2024 1348 EDT Reason for Call: Results and Returning Call Summary/Symptoms: patient returning call to nurse and yes he is referring to the 02/09 UA results that he would like to review Please call back Zita Ibarra 03/14/2024 13:48 * Telephone Encounter - Rebecca Mayorga RN - 03/14/2024 1151 EDT Left Vm for pt. Unsure if he is referring to urinalysis from 02/09? * Telephone Encounter - Tomeka Quiñones - 03/14/2024 0839 EDT Patient would like to dicuss results with someone when possible. Saw some !!! And he is wondering if that means something serious. Please reach out to discuss and follow up with patient when possible. documented in this encounter Plan of Treatment Upcoming Encounters Date Type Department Care Team (Late st Contact Info) Description 04/02/2024 11:15 EDT Telemedicine [facility] Urology - [address] [phone] David Bhatt, 111 [facility] 5 [place] [phone] 07/12/2024 12:30 [facility] Hospital Encounter [place] 1 EP Lab [address] [place] [phone] Rodrigo Noyola MD [address] [place] [phone] Paroxysmal atrial fibrillation (HCC-CMS) 07/12/2024 12:30 EST - 07/12/2024 17:00 EST Surgery [place] 1 EP Lab [address] [place], [place] [address] Rodrigo Noyola MD [address] [place] [phone] Bryce Woo [[id number] (CPT??)] 07/23/2024 11:00 EST Office Visit [facility] Cardiology Clinic [address] [place] [address] Malini Euceda MD 111 [facility] 1 [place] [address] documented as of this encounter Visit Diagnoses Not on filedocumented in this encounter Care Teams Supervisor Cell Operation Relationship Specialty Start Date End Date Jessie Velasco 4 [place] [address] PCP - General Internal Medicine - Primary Care 08/26/21 Malini Euceda MD [address] [place] [address]A [address] [place] [address] Consulting Clinician Cardiovascular Disease 11/12/21 documented as of this encounter
--- OUTSIDE RECORDS SUMMARY | 2024-03-27 17:24 | XMS_ITS | Clinical Summary ---
Author Organization [facility] Address [facility] [place] [address] Care Team Providers Care Tread Builder Name Role Phone Unavailable Primary Care Provider Unavailabl e Social History Tobacco Use Types Packs/Day Years Used Date Smoking Tobacco: Never Assessed Sex and Gender Information Value Date Recorded Sex Assigned at Not on file Gender Identity Not on file Sexual Orientation Not on file Plan of Treatment Health Maintenance Due Date Last Done Comments CT Colonography 1950 Colonoscopy 1950 Colorectal Cancer Screening 1950 FIT DNA 1950 FIT 1950 Sigmoidoscopy (10 year) with FIT yearly 1950 Sigmoidoscopy 1950 Hepatitis C Screening 1968 Lipid Screening 1968 Tdap adult 1969 Tetanus vaccine 1969 Zoster vaccine (1 of 2) 2000 Advance Directive 2005 Pneumoccocal Vaccine: 65+ (1 of 1 - PCV) 2015 Covid-19 Vaccine (1 - 2022- season) 2023 Influenza (Flu) vaccine (1 o f 1 - Influenza standard series) 05/06/2024
--- OUTSIDE RECORDS SUMMARY | 2024-03-27 17:24 | XMS_ITS | Encounter Summary ---
Author Organization [facility] Address [address] [place] [address] Care Team Providers Care Ingredient Scaler Helper Name Role Phone Jessie Velasco Frank Primary Care Provider Malini Euceda MD Unavailable Reason for Visit * Reason Comments Follow-up UA, CYTO, EXAM, [place] (02/08) Encounter Details Date Type Department Care Team (Late st Contact Info) Description 02/10/2024 13:00 EDT Office Visit [facility] Urology - [address] [phone] David Bhatt, DO [address] [facility], [address] [place] [phone] Urothelial cancer (HCC-CMS) (Primary Dx); Benign prostatic hyperplasia with urinary retention; BPH with obstruction/lower urinary tract symptoms; Hematuria, gross Social History Tobacco Use Types Packs/Day Years [...] No 04/19/2023 documented as of this encounter Progress Notes * David Bhatt, DO - 02/10/2024 1300 EDT Images from the original note were not included. 1. Status post TURP for BPH and chronic retention(2013). 2. Gross hematuria 2021. 3. NIDDM 4. Gross hematuria 2023. Urine c/s neg. CTU: 2021 neg. Here with subsequent drop of bloody collagenous material per urethra no hematuria mouth could be from the prostate could be from urethral glands no dysuria. Most recent urine culture is negative. We did a formal urine cytology today. Get a renal bladder ultrasound yesterday that is not resulted kidneys to my quick view shows simple cyst no other issues. Discussed if the ultrasound reports normal cytology is negative and the fact he has not had hematuria per se we will just continue following along. He is to be voiding well from previous TURP for BPH as above. He is going to stay on tamsulosin 0.4 mg a day for quality of life. This note has been prepared with voice recognition software. Please excuse financial sales assistant errors. CC: Jessie Velasco MD documented in this encounter Plan of Treatment Upcoming Encounters Date Type Department Care Team (Late st Contact Info) Description 04/02/2024 11:15 EDT Telemedicine [facility] Urology - [address] [phone] David Bhatt DO [address] [place] [address] 5 [place] [phone] 07/12/2024 12:30 EST Hospital Encounter [place] [address] [facility] [address] [place] [address] [phone] Rodrigo Noyola MD [address] [place] [phone] Paroxysmal atrial fibrillation ([facility]) 07/12/2024 12:30 EST - 07/12/2024 17:00 EST Surgery [place] [address] [facility] [address] [place] [address] [phone] Rodrigo Noyola MD [address] [place] [phone] Albation Kaur-Kiara [[id number] (CPT??)] 07/23/2024 11:00 EST Office Visit [facility] [address] [place] [address] [phone] Malini Euceda MD [address] [place] [phone] documented as of this encounter Procedures Procedure Name Priority Date/Time Associated Diagnosis Comments POCT URINE DIPSTICK, CLINITEK Routine 02/10/2024 12:57 EDT Benign prostatic hyperplasia with urinary retention NON LOCAL GOVERNMENT LEGISLATOR/FNA CYTOLOGY Routine 02/10/2024 12:52 EDT Benign prostatic hyperplasia with urinary retention Hematuria, gross POCT CSN BARCODE URINE DIPSTICK Routine 02/10/2024 12:44 EDT Benign prostatic hyperplasia with urinary retention POCT URINE CLINITEK (DIPSTICK) - DOES NOT REFLEX Routine 02/10/2024 12:44 EDT Benign prostatic hyperplasia with urinary retention documented in this encounter Results * (ABNORMAL) POCT URINE DIPSTICK, CLINITEK (02/10/2024 12:57 EDT) Color, UA Yellow Yellow 02/10/2024 12:59 [facility] Clarity, UA Clear Clear 02/10/2024 12:59 [facility] Glucose, UA Negative Negative mg/dL 02/10/2024 12:59 [facility] Bilirubin, UA Negative Negative 02/10/2024 12:59 [facility] Ketones, UA Negative Negative 02/10/2024 12:59 [facility] Specific [place], Urine 1.015 1.001 - 1.030 02/10/2024 12:59 [facility] Blood, UA 2+(A) Negative 02/10/2024 12:59 [facility] pH, UA 7.0 <8.5 02/10/2024 12:59 [facility] Protein, UA 1+(A) Negative mg/dL 02/10/2024 12:59 [facility] Urobilinogen, UA 0.2 0.2 - 1.0 mg/dL 02/10/2024 12:59 [facility] Nitrite, UA Negative Negative 02/10/2024 12:59 [facility] Leuk Esterase 3+(A) Negative 02/10/2024 12:59 EDT [facility] HN LAB COMMENT (CLINITEK, UR) Test performed at [facility] 02/10/2024 12:59 [facility] Urine URINE SPECIMEN OBTAINED BY CLEAN CATCH PROCEDURE / Unknown 02/10/2024 12:57 EDT 02/10/2024 12:59 EDT David Bhatt DO POINT OF CARE TEST ORDERABLES [facility] [address] [place], [place] [phone] * NON LOCAL GOVERNMENT LEGISLATOR/FNA CYTOLOGY (02/10/2024 12:52 EDT) Note to Patient The following pathology results have been interpreted by your pathologist and may be available to you before your health provider has had the opportunity to review them. Please allow time for your provider to receive these results and explore management options, if applicable. 02/14/2024 12:20 [facility] Final Diagnosis A. URINE, VOIDED, CYTOLOGIC EVALUATION: - Negative for high grade urothelial carcinoma. - Rare urothelial cells and abundant acute inflammation present. 02/14/2024 12:20 [facility] Attestation There was significant resident/fellow involvement in the diagnostic evaluation of this case. By the signature below, the attending physician certifies that they have personally conducted a gross and/or microscopic examination of the described specimens and rendered or confirmed the above diagnosis. 02/14/2024 12:20 [facility] at 1220 Clinical History no sxs; gross hematuria 02/14/2024 12:20 [facility] Gross Description A. 100cc's of opaque yellow fluid were received and processed by selective cellular enhancement technique. 02/14/2024 12:20 [facility] Resident/Francisco w: Amena Tate MD 02/14/2024 12:20 [facility] Performing Lab [facility] 02/14/2024 12:20 EDT [facility] Scanned Images 02/14/2024 12:20 EDT [facility] Urine URINE SPECIMEN FROM URETHRA / Unknown Urine Collect / Unknown 02/10/2024 12:52 EDT 02/13/2024 6:46 EDT David Garcia Pervishal DO PATHOLOGY ORDERABLE S Performing Organization Address [facility]/ZIP Co de Phone Number [facility] [address] [place] [address] * POCT CSN BARCODE URINE DIPSTICK (02/10/2024 12:44 EDT) Urine URINE SPECIMEN OBTAINED BY CLEAN CATCH PROCEDURE / Unknown 02/10/2024 12:44 EDT 02/10/2024 12:44 EDT David Bhatt DO LAB INFO SERVICE AN D SUPPORT & PHONE RESULT Performing Organization Address [facility] Co de Phone Number [facility] [address] [place] [phone] documented in this encounter Visit Diagnoses Diagnosis Paroxysmal atrial fibrillation (HCC-CMS)- Primary Atrial fibrillation Urothelial cancer (HCC-CMS)- Primary Malignant neoplasm of other specified sites of urinary organs Benign prostatic hyperplasia with urinary retention BPH with obstruction/lower urinary tract symptoms Hypertrophy of prostate with urinary obstruction and other lower urinary tract symptoms (LUTS) Hematuria, gross Gross hematuria Paroxysmal atrial fibrillation (HCC-CMS) Atrial fibrillation documented in this encounter Care Teams Ingredient Scaler Helper Relationship Specialty Start Date End Date Jessie Velasco [address] [place] [phone] PCP - General Internal Medicine - Primary Care 08/26/21 Malini Ecueda MD [address] [place] [address]-[facility] [address] [place] [phone] Consulting Clinician Cardiovascular Disease 11/12/21 documented as of this encounter
--- OUTSIDE RECORDS SUMMARY | 2024-03-27 17:24 | XMS_ITS | Referral Summary ---
Author Organization [facility] Address [address] [place] [address] Care Team Providers Care Flap Maker Name Role Phone KristaAndreiJessie R Primary Care Provider Malini Euceda MD Unavailable [phone] Encounters Date Type Department Care Team Description 03/27/[address] [phone] David Bhatt, DO Appointment Related 03/26/2024 8:30 EDT Office Visit [facility] Dermatology 5th [address] [phone] Sameer Murray MD Actinic keratosis (Primary Dx); Lentigines; Seborrheic keratoses 03/14/[address] [phone] David Bhatt, DO Results; Returning Call 03/14/[address] [phone] David Bhatt, Appointment Related 03/14/[address] [phone] David Bhatt, DO Medications Refill 02/14/[address] [facility] Cardiology Clinic [address] [place], [place] [phone] Malini Euceda MD Appointment Related 02/10/2024 13:00 EDT Office Visit [address] [phone] David Bhatt, Urothelial cancer (HCC-CMS) (Primary Dx); Benign prostatic hyperplasia with urinary retention; BPH with obstruction/lower urinary tract symptoms; Hematuria, gross 02/09/2024 12:22 EDT - 02/09/2024 23:[address] [facility] Ultrasound [address] [place], [place] [phone] Gross hematuria Discharge Disposition: Home or Self Care 02/08/2024 Orders Only [address] [phone] David Bhatt, Benign prostatic hyperplasia with urinary retention (Primary Dx) 01/26/2024 10:12 EDT - 01/26/2024 23:59 EDT Hospital Encounter [facility] Radiology CT Outpatient - [address] [phone] Paroxysmal atrial fibrillation (HCC-CMS) Discharge Disposition: Home or Self Care 01/16/2024 15:15 EDT Phlebotomy Only [facility] - Outpatient Phlebotomy Drawing [address] [place], [place] [phone] [facility] Gross hematuria 01/16/[address] [phone] David Bhatt, Hematuria 01/04/2024 11:[address] [facility] [address] [place], [place] [phone] Malini Euceda MD Atrial fibrillation with rapid ventricular response (HCC-CMS) (Primary Dx) 12/28/[address] [phone] David Bhatt DO Appointment Related from Last 3 Months Allergies No known active allergies Medications Medication [...] every evening. 90 Tablet 3 2 Active Psasm-8-JIB-EPA-F chet Oil (FISH OIL) 1,200 (144-216) mg [...] (CARDIZEM) 30 mg tabletIndications :Paroxysmal atrial fibrillation (HCC-CMS) Take 1 Tablet by mouth 4 times daily as needed for Other (for atrial fibrillaiton > 100 bpm). 30 Tablet 3 3 Active dilTIAZem (CARDIZEM CD) 120 mg capsuleIndication s:Paroxysmal atrial fibrillation (HCC-CMS) Take 1 Capsule by mouth daily. 90 Capsule 3 3 Active apixaban (ELIQUIS) 5 mg tabletIndications :Atrial flutter, unspecified type (HCC-CMS) Take 1 Tablet by mouth 2 times [...] t be different from the original. 09[place]16/21[place] [facility] [place] [facility] [place] JERONIMO (PERM TO SPEAK) STARR GARNICA (), MANDY GARNICA (DAUGHTER). Problem Noted Date Diagnosed Date Paroxysmal atrial fibrillation ([facility]) 024 Atrial fibrillation with rap id ventricular response ([facility]) 04/19/2023 Atrial fibrillation with RVR ([facility]) 3 Elevated troponin 04/19/2023 Acute renal insufficiency 04/19/2023 Coronary artery disease invo lving iliamna coronary artery of iliamna heart without angina pectoris 11/06/2021 Nonrheumatic aortic valve stenosis 11/06/2021 ST elevation myocardial infarction (STEMI) ([facility]) 08/26/2021 Hyperlipidemia 01/29/2014 DM (diabetes mellitus), secondary ([facility]) 01/04 HTN (hypertension) 01/29/2014 BBB (bundle branch block) 01/29/2014 Benign prostatic hyperplasia with urinary retent ion 01/29/2014 Immunizations Name Administration Dates Next Due Covid-19 [...] 05/16/2006 Zostavax (Zoster Vaccine, Live) SQ 08/04/2012 Social History Tobacco Use Types Packs/Day Years [...] 11:28 EST Sexual Orientation Not on file Last Filed Vital Signs Vital Sign Reading [...] Body Mass Index 28.88 01/04/2024 1050 EDT Functional Status Functional Status Response Date of [...] (5 years old or older) No 04/19/2023 Plan of Treatment Upcoming Encounters Date Type Department Care Team (Late st Contact Info) Description 04/02/2024 11:15 EDT Telemedicine [facility] Urology - [facility] [address] [place], [place] [phone] David Bhatt DO 111 [facility], [facility] [address] [place] [phone] 07/12/2024 12:30 EST Hospital Encounter [facility] [address] [place], [place] [phone] Rodrigo Noyola MD 111 [facility] 1 [place] [phone] Paroxysmal atrial fibrillation ([facility]) 07/12/2024 12:30 EST - 07/12/2024 17:00 EST Surgery [facility] [address] [place], [place] [phone] Rodrigo Noyola MD 111 [facility], [facility] 1 [place] [address] Bryce Woo [[id number] (CPT??)] 07/23/2024 11:[address] [facility] Cardiology Clinic [address] [place], [place] [address] Malini Euceda MD 111 [facility] 1 [place] [address] Procedures Procedure Name Priority Date/Time Associated Diagnosis Comments POCT URINE DIPSTICK, CLINITEK Routine 02/10/2024 12:57 EDT Benign prostatic hyperplasia with urinary retention NON INSPECTOR ROUGH CASTINGS/FNA CYTOLOGY Routine 02/10/2024 12:52 EDT Benign prostatic [...] coronary thrombosis not resulting in myocardial infarction ([facility]) from Last 3 Months or Most Recently Relevant to Health Maintenance Results * (ABNORMAL) POCT URINE DIPSTICK, CLINITEK (02/10/2024 12:57 EDT) Color, UA Yellow Yellow 02/10/2024 12:59 [facility] Clarity, UA Clear Clear 02/10/2024 12:59 [facility] Glucose, UA Negative Negative mg/dL 02/10/2024 12:59 [facility] Bilirubin, UA Negative Negative 02/10/2024 12:59 [facility] Ketones, UA Negative Negative 02/10/2024 12:59 [facility] Specific [place], Urine 1.015 1.001 - 1.030 02/10/2024 12:59 [facility] Blood, UA 2+(A) Negative 02/10/2024 12:59 [facility] pH, UA 7.0 <8.5 02/10/2024 12:59 [facility] Protein, UA 1+(A) Negative mg/dL 02/10/2024 12:59 [facility] Urobilinogen, UA 0.2 0.2 - 1.0 mg/dL 02/10/2024 12:59 [facility] Nitrite, UA Negative Negative 02/10/2024 12:59 [facility] Leuk Esterase 3+(A) Negative 02/10/2024 12:59 [facility] HN LAB COMMENT (CLINITEK, UR) Test performed at [facility] 02/10/2024 12:59 [facility] Urine URINE SPECIMEN OBTAINED BY CLEAN CATCH PROCEDURE / Unknown 02/10/2024 12:57 EDT 02/10/2024 12:59 EDT David Bhatt DO POINT OF CARE TEST ORDERABLES Performing Organization Address City/[facility]/ZIP Co de Phone Number [facility] [address] [place] [address] * NON INSPECTOR ROUGH CASTINGS/FNA CYTOLOGY (02/10/2024 12:52 EDT) Note to Patient The following pathology results have been interpreted by your pathologist and may be available to you before your health provider has had the opportunity to review them. Please allow time for your provider to receive these results and explore management options, if applicable. 02/14/2024 12:20 EDT [facility] Final Diagnosis A. URINE, VOIDED, CYTOLOGIC EVALUATION: - Negative for high grade urothelial carcinoma. - Rare urothelial cells and abundant acute inflammation present. 02/14/2024 12:20 T [facility] Attestation There was significant resident/fellow involvement in the diagnostic evaluation of this case. By the signature below, the attending physician certifies that they have personally conducted a gross and/or microscopic examination of the described specimens and rendered or confirmed the above diagnosis. 02/14/2024 12:20 T [facility] at 1220 Clinical History no sxs; gross hematuria 02/14/2024 12:20 T [facility] Gross Description A. 100cc's of opaque yellow fluid were received and processed by selective cellular enhancement technique. 02/14/2024 12:20 T [facility] Resident/Francisco w: Amena Tate MD 02/14/2024 12:20 EDT [facility] Performing Lab [facility] 02/14/2024 12:20 T [facility] Scanned Images 02/14/2024 12:20 [facility] Urine URINE SPECIMEN FROM URETHRA / Unknown Urine Collect / Unknown 02/10/2024 12:52 EDT 02/13/2024 6:46 EDT David Bhatt DO PATHOLOGY ORDERABLE S Performing Organization Address [facility]/ZIP Co de Phone Number [facility] [address] [place] [address] * POCT CSN BARCODE URINE DIPSTICK (02/10/2024 12:44 EDT) Urine URINE SPECIMEN OBTAINED BY CLEAN CATCH PROCEDURE / Unknown 02/10/2024 12:44 EDT 02/10/2024 12:44 EDT David Bhatt DO LAB INFO SERVICE AN D SUPPORT & PHONE RESULT [facility] [address] [place] [address] * US RENAL/BLADDER COMPLETE (02/09/2024 12:53 EDT) Anatomical Region Laterality Modality Abdomen, Body Ultrasound 02/10/2024 16:5 1 EDT Impressions 02/10/2024 16:51 EDT 1. Bilateral renal cysts. 2. Post void residual urinary bladder volume of 556 mL. 3. Generalized urinary bladder wall thickening which has an irregular-corrugated appearance. 4. Mild prostatomegaly, incompletely visualized. [id number] Narrative 02/10/2024 16:51 EDT US RENAL/BLADDER COMPLETE [...] a slightly enlarged prostate. Resulting Agency Comment [id number] Procedure Note Fito Gurrola MD - 02/10/2024 [...] anirregular-corrugated appearance. 4. Mild prostatomegaly, incompletely visualized. [id number] David Bhatt DO G US ORDERABLES * CT CARDIAC PULMONARY VEIN [...] present. There are no suspicious pulmonary nodules. [id number] Resulting Agency Comment [id number] Procedure Note Cassandra Bach MD - 01/26/2024 CT CARDIAC PULMONARY VEIN 01/26/2024 10:32 AM Clinical History/Comments: AF;I48.0:Paroxysmal atrial fibrillation ([facility]) Technique: CTA of the heart was performed with ECG-gating and with the intravenousadministration of contrast material. Images were reconstructed at [id number]% phases of the cardiac cycle. 3D advanced [...] is present.There are no suspicious pulmonary nodules. [id number] Rodrigo Noyola MD IMG CT ORDERABLE S * (ABNORMAL) POCT CREATININE, ISTAT (01/26/2024 10:44 EDT) Creatinine, Venous, i-STAT 1.5(H) 0.7 - 1.3 mg/dL 01/26/2024 10:46 EDT [facility] eGFR, Calculated, i-STAT 49(L) >60 mL/min/1.7 3m2 01/26/2024 10:46 EDT [facility] Blood VENOUS BLOOD / Unknown 01/26/2024 10:44 EDT 01/26/2024 10:46 EDT Narrative [facility] - 01/26/2024 10:46 EDT Test Performed by Radiology Imaging Provider Unknown POINT OF CARE TEST O RDERABLES [facility] [address] [place] [address] * (ABNORMAL) UA CHEMICAL & SEDIMENT (01/16/2024 15:16 EDT) Color UA Yellow Colorless, Yellow 01/16/2024 17:49 EDT [facility] Clarity UA Cloudy(A) Clear 01/16/2024 17:49 EDT [facility] Glucose UA Negative Negative mg/dL 01/16/2024 17:49 [facility] Bilirubin UA Negative Negative 01/16/2024 17:49 [facility] Ketones UA Negative Negative 01/16/2024 17:49 [facility] Specific [place], Urine 1.020 1.001 - 1.030 01/16/2024 17:49 [facility] Blood UA 3+(A) Negative 01/16/2024 17:49 [facility] Nitrite UA Negative Negative 01/16/2024 17:49 [facility] Leukocyte Esterase UA 1+(A) Negative 01/16/2024 17:49 [facility] Protein UA Trace(A) Negative mg/dL 01/16/2024 17:49 [facility] pH, UA 6.0 <8.5 01/16/2024 17:49 [facility] Urine RBC Count, Manual >50(A) 0 - 2 Cells/HPF 01/16/2024 17:49 [facility] Urine WBC Count >50(A) 0 - 3 Cells/HPF 01/16/2024 17:49 [facility] Urine Squamous Count, Manual None Seen None Seen Cells/HPF 01/16/2024 17:49 [facility] Urine Hyaline Cast Count, Manual <=10 <=10 Casts/LPF 01/16/2024 17:49 [facility] Urine Bacteria Count, Manual Moderate(A) None Seen Bacteria/HP F 01/16/2024 17:49 [facility] Urobilinogen UA 0.2 0.2-1.0 mg/dL mg/dL 01/16/2024 17:49 [facility] Urine URINE SPECIMEN OBTAINED BY CLEAN CATCH PROCEDURE / Unknown Urine Collect / Unknown 01/16/2024 15:16 EDT 01/16/2024 17:12 T Narrative [facility] - 01/16/2024 17:49 EDT Urine Sediment Analysis results are unreliable on urines that are unrefrigerated for >2 hrs or refrigerated >8 hrs. David Bhatt DO URINALYSIS ORDERABL ES [facility] [address] [place] [address] * BACTERIAL CULTURE, URINE (01/16/2024 15:16 EDT) Organism ID No Growth VITEK SUSCEPTIBILITY 01/18/2024 11:15 EDT [facility] Urine URINE SPECIMEN OBTAINED BY CLEAN CATCH PROCEDURE / Unknown Urine Collect / Unknown 01/16/2024 15:16 EDT 01/16/2024 17:12 EDT David Bhatt DO MICROBIOLOGY - GENE RAL ORDERABLES [facility] [address] [place] [address] * LIPID PROFILE (INCLUDES CHOLESTEROL, TRIGLYCERIDES, HDL, LDL) (03/28/2023 16:03 EDT) Cholesterol 127 <200 mg/dL 03/28/2023 17:07 EDT [facility] Comment:Note that therapeuti c goals will differ between patients based on cardiac risk factors and current medical therapy. HDL 43 >=40 mg/dL 03/28/2023 17:07 [facility] Comment:Note that therapeuti c goals will differ between patients based on cardiac risk factors and current medical therapy. LDL, Calculated 58 <160 mg/dL 17:07 T [facility] Comment:Note that therapeuti c goals will differ between patients based on cardiac risk factors and current medical therapy. Triglyceride 130 <=150 mg/dL 03/28/2023 17:07 T [facility] Comment:Note that therapeuti c goals will differ between patients based on cardiac risk factors and current medical therapy. Chol/HDL Ratio 3.0 See Note 03/28/2023 17:07 [facility] Comment: NOTE: Desirable Ratio = <4.1 Patient At Risk Ratio = >5.0(Males) ?>6.0(Females) Non HDL Cholesterol 84 <160 mg/dL 03/28/2023 17:07 [facility] Comment:Note that therapeuti c goals will differ between patients based on cardiac risk factors and current medical therapy. Blood VENOUS BLOOD / Unknown Venipuncture / Unknown 03/28/2023 16:03 EDT 03/28/2023 16:30 EDT Malini Euceda MD CHEMISTRY & BLOOD GA S ORDERABLES [facility] [address] [place] [address] from Last 3 Months or Most Recently Relevant to Health Maintenance Advance Directives For more information, please contact: [phone] Documents on File Type Date Recorded Patient Regional Sales Executive Expl anation Advance Directive 01/29/2014 9:59 * [...] Comments 01/29/2014 18:39 01/30/2014 14:33 Care Teams Flap Maker Relationship Specialty Start Date End Date Jessie Velasco [address] [place] [address] PCP - General Internal Medicine - Primary Care 08/26/21 Malini Euceda MD [address] [place] [address] [phone] Consulting Clinician Cardiovascular Disease 11/12/21
--- OUTSIDE RECORDS SUMMARY | 2024-03-27 17:25 | XMS_ITS | Encounter Summary ---
Author Organization [facility] Address [address] [place] [address] Care Team Providers Care Customer Service Associate Name Role Phone Jessie Velasco Primary Care Provider [phone] Malini Euceda MD Unavailable [phone] Reason for Referral * Radiology Services (Routine) - Authorization Not Required Specialty Diagnoses / Procedures Referred By Contac t Referred To Contact Diagnoses Paroxysmal atrial fibrillation (HCC-CMS) Procedures CT CARDIAC PULMONARY VEIN Rodrigo Noyola MD [address] [place] [phone] [facility] Referral ID Status Reason Start Date Expiration Date Visits Requested Visits Authorized [id number] Authorization Not Required 10/28/2023 1 1 Reason for Visit * Radiology Services (Routine) - Authorization Not Required Specialty Diagnoses / Procedures Referred By Contac t Referred To Contact Diagnoses Paroxysmal atrial fibrillation (HCC-CMS) Procedures CT CARDIAC PULMONARY VEIN Rodrigo Noyola MD [address] [place] [phone] [facility] Referral ID Status Reason Start Date Expiration Date Visits Requested Visits Authorized [id number] Authorization Not Required 10/28/2023 1 1 Encounter Details Date Type Department Care Team (Latest Contact Info) Description 01/26/2024 10:12 EDT - 01/26/2024 23:59 EDT Hospital Encounter [facility] Radiology CT Outpatient - [address] [address] Paroxysmal atrial fibrillation ([facility]) Discharge Disposition: Home or Self Care Social History Tobacco Use Types Packs/Day Years [...] No 04/19/2023 documented as of this encounter Medications at Time of Discharge Medication Sig Dispensed Refills Start Date End Date apixaban (ELIQUIS) 5 mg tabletIndications:Atr ial flutter, unspecified type (HCC-CMS) Take 1 Tablet by mouth 2 times daily. 180 Tablet 3 08/17/2023 atorvastatin (LIPITOR) 40 mg tabletIndications:hyp erlipidemia Take 1 Tablet by mouth every evening. 90 Tablet 3 09/25/2021 cyanocobalamin, vitamin B-12, 1,000 mcg capsule Take 1,000 mcg by mouth daily. dilTIAZem (CARDIZEM CD) 120 mg capsuleIndications:Pa roxysmal atrial fibrillation (HCC-CMS) Take 1 Capsule by mouth daily. 90 Capsule 3 08/05/2023 dilTIAZem (CARDIZEM) 30 mg tabletIndications:Par oxysmal atrial fibrillation (HCC-CMS) Take 1 Tablet by mouth 4 times daily as needed for Other (for atrial fibrillaiton > 100 bpm). 30 Tablet 3 08/05/2023 losartan (COZAAR) 25 mg tablet Take 2 Tablets by mouth daily. magnesium oxide (MAG-OX) 400 mg (241.3 mg magnesium) tablet Take 1 Tablet by mouth daily. metFORMIN (GLUCOPHAGE) 1,000 mg tabletIndications:typ e 2 diabetes mellitus Take 1 Tablet by mouth every morning. metFORMIN (GLUCOPHAGE) 1,000 mg tabletIndications:typ e 2 diabetes mellitus Take 0.5 Tablets by mouth every evening. nitroglycerin (NITROSTAT) 0.[address] 1 Tablet under the tongue every 5 minutes as needed for Chest Pain. (if needing to take 3rd tablet, call 911) 25 Tablet 5 09/07/2022 Irlns-7-HXX-EPA-Fish Oil (FISH OIL) 1,200 (144-216) mg capsule Take 1,200 mg by mouth daily. 03/25/2022 ONETOUCH ULTRA BLUE TEST STRIP test strips 06/02/2020 ONETOUCH ULTRASOFT LANCETS 06/02/2020 TRULICITY 0.75 mg/0.5 mL subcutaneous penIndications:type 2 diabetes mellitus Inject 0.75 mg into the skin once a week. On Sundays06/12/2020 TAMSulosin (FLOMAX) 0.4 mg capsule Take 1 Capsule by mouth daily. 90 Capsule 1 10/04/2023 03/14/2024 documented as of this encounter Discharge Disposition Disposition Code Departure Means Destination Home or Self Care documented in this encounter Plan of Treatment Upcoming Encounters Date Type Department Care Team (Late st Contact Info) Description 04/02/2024 11:15 EDT Telemedicine [facility] Urology - [address] [phone] David Bhatt DO 111 [facility], [facility], Level [address] [place] [phone] 07/12/2024 12:30 EST Hospital Encounter [place] [address] [facility] [address] [place] [phone] Rodrigo Noyola MD [address] [place] [phone] Paroxysmal atrial fibrillation (HCC-CMS) 07/12/2024 12:30 EST - 07/12/2024 17:00 EST Surgery [place] [address] [facility] [address] [place] [phone] Rodrigo Noyola MD [address] [place] [phone] [facility] [[id number] (CPT??)] 07/23/2024 11:00 EST Office Visit [facility]iology [facility] [address] [place] [phone] Malini Euceda MD [address] [place] [phone] documented as of this encounter Procedures Procedure Name Priority Date/Time Associated Diagnosis Comments CT CARDIAC ANGIO PULMONARY VEIN Routine 01/26/2024 11:03 EDT Paroxysmal atrial fibrillation (HCC-CMS) POCT CREATININE, ISTAT Routine 01/26/2024 10:44 EDT documented in this encounter Results * CT CARDIAC PULMONARY VEIN (01/26/2024 11:03 [...] present. There are no suspicious pulmonary nodules. [id number] Resulting Agency Comment [id number] Procedure Note Cassandra Bach MD - 01/26/2024 CT CARDIAC PULMONARY VEIN 01/26/2024 10:32 AM Clinical History/Comments: AF;I48.0:Paroxysmal atrial fibrillation (HCC-CMS) Technique: CTA of the heart was performed with ECG-gating and with the intravenousadministration of contrast material. Images were reconstructed at [id number]% phases of the cardiac cycle. 3D advanced [...] is present.There are no suspicious pulmonary nodules. [id number] Rodrigo Noyola MD IMG CT ORDERABLE S * (ABNORMAL) POCT CREATININE, ISTAT (01/26/2024 10:44 EDT) Creatinine, Venous, i-STAT 1.5(H) 0.7 - 1.3 mg/dL 01/26/2024 10:46 EDT [facility] eGFR, Calculated, i-STAT 49(L) >60 mL/min/1.7 3m2 01/26/2024 10:46 EDT [facility] Blood VENOUS BLOOD / Unknown 01/26/2024 10:44 EDT 01/26/2024 10:46 EDT Narrative [facility] - 01/26/2024 10:46 EDT Test Performed by Radiology Imaging Provider Unknown POINT OF CARE TEST O RDERABLES [facility] [address] [place] [address] documented in this encounter Visit Diagnoses Diagnosis Paroxysmal atrial fibrillation (HCC-CMS)- Primary Atrial fibrillation Paroxysmal atrial fibrillation (HCC-CMS) Atrial fibrillation Paroxysmal atrial fibrillation (HCC-CMS) Atrial fibrillation documented in this encounter Administered Medications Inactive Administered Medications - up to 3 most recent administrations Medication Order MAR Action Action Date Dose Rate Site iohexoL (OMNIPAQUE 350) solution 100 mL 100 mL, intravenous, Once in imaging, 1 dose, Starting on Tonya 01/26/24 at 1032, Until Tonya 01/26/24 at 1102, Routine, Imaging Protocol Orders Given 01/26/2024 11:02 EDT 95 mL documented in this encounter Orders Medications Ordered That Quirino ht Not Have Been Administered Count Last Ordered Date First Ordered Date iohexoL (OMNIPAQUE 350) solution 100 mL 1 0 01/26/2024 documented in this encounter Care Teams Customer Service Associate Relationship Specialty Start Date End Date Jessie Velasco [address] [place] [id number] PCP - General Internal Medicine - Primary Care 08/26/21 Malini Euceda MD [address] [place] [address] [address] [place] [phone] Consulting Clinician Cardiovascular Disease 11/12/21 documented as of this encounter
--- OUTSIDE RECORDS SUMMARY | 2024-03-27 17:25 | XMS_ITS | Encounter Summary ---
Author Organization [facility] Address [address] [place] [address] Care Team Providers Care Production Underwriter Name Role Phone Jessie Velasco Primary Care Provider [phone] Malini Euceda MD Unavailable [phone] Reason for Referral * Radiology Services (Routine/Next Available) - Authorization Not Required Specialty Diagnoses / Procedures Referred By Contac t Referred To Contact Diagnoses Gross hematuria Procedures US RENAL/BLADDER COMPLETE David Bhatt DO [address] [place] [phone] [facility]erral ID Status Reason Start Date Expiration Date Visits Requested Visits Authorized [id number] Authorization Not Required 01/19/2024 1 1 Reason for Visit * Radiology Services (Routine/Next Available) - Authorization Not Required Specialty Diagnoses / Procedures Referred By Contac t Referred To Contact Diagnoses Gross hematuria Procedures US RENAL/BLADDER COMPLETE David Bhatt DO [address] [place] [phone] [facility] Referral ID Status Reason Start Date Expiration Date Visits Requested Visits Authorized [id number] Authorization Not Required 01/19/2024 1 1 Encounter Details Date Type Department Care Team (Latest Contact Info) Description 02/09/2024 12:22 EDT - 02/09/2024 23:59 EDT Hospital Encounter [facility] Ultrasound [address] [place] [address] Gross hematuria Discharge Disposition: Home or Self Care Social [...] tablet, call 911) 25 Tablet 5 09/07/2022 [id number]-Fish Oil (FISH OIL) 1,200 (144-216) mg capsule [...] Contact Info) Description 04/02/2024 11:15 EDT Telemedicine [facility] Urology - [address] [phone] David Bhatt DO 111 [facility], Level [address] [place] [phone] 07/12/2024 12:30 EST Hospital Encounter [place] [address] [address] [place] [phone] Rodrigo Noyola MD [address] [place] [phone] Paroxysmal atrial fibrillation ([facility]) 07/12/2024 12:30 EST - 07/12/2024 17:00 EST Surgery [place] [address] EP [address] [place] [phone] Rodrigo Noyola MD [address] [place] [phone] Albcj Woo [[id number] (CPT??)] 07/23/2024 11:00 EST Office Visit [facility] Cardiology Clinic [address] [place] [address] Malini Euceda MD [address] [place] [phone] documented as of this encounter Procedures Procedure Name Priority Date/Time Associated Diagnosis Comments US RENAL/BLADDER COMPLETE Routine 02/09/2024 12:53 EDT Gross hematuria documented in this encounter Results * US RENAL/BLADDER COMPLETE (02/09/2024 12:53 EDT) Anatomical Region Laterality Modality Abdomen, Body Ultrasound 02/10/2024 16:5 1 EDT Impressions 02/10/2024 16:51 EDT 1. Bilateral renal cysts. 2. Post void residual urinary bladder volume of 556 mL. 3. Generalized urinary bladder wall thickening which has an irregular-corrugated appearance. 4. Mild prostatomegaly, incompletely visualized. [id number] Narrative 02/10/2024 16:51 EDT US RENAL/BLADDER COMPLETE [...] a slightly enlarged prostate. Resulting Agency Comment [id number] Procedure Note Fito Gurrola MD - 02/10/2024 [...] anirregular-corrugated appearance. 4. Mild prostatomegaly, incompletely visualized. [id number] David Bhatt DO IMG US ORDERABLES documented in this encounter Visit Diagnoses Diagnosis Paroxysmal atrial fibrillation (HCC-CMS)- Primary Atrial fibrillation Gross hematuria Paroxysmal atrial fibrillation (HCC-CMS) Atrial fibrillation documented in this encounter Care Teams Production Underwriter Relationship Specialty Start Date End Date Jessie Velasco [address] [place] [address] PCP - General Internal Medicine - Primary Care 08/26/21 Malini Euceda MD [address] [place] [address] [address] [place] [phone] Consulting Clinician Cardiovascular Disease 11/12/21 documented as of this encounter
--- OUTSIDE RECORDS SUMMARY | 2024-03-27 17:25 | XMS_ITS | Encounter Summary ---
Author Organization [facility] Address [address] [place] [address] Care Team Providers Care Mixer Blender Name Role Phone Jessie Velasco Primary Care Provider [phone] Alida Euceda MD Unavailable [phone] Reason for Referral * Cardiology (Routine/Next Available) - New Request Specialty Diagnoses / Procedures Referred By [facility] Referred To Contact Diagnoses Paroxysmal atrial fibrillation (HCC-CMS) Procedures EKG 12-LEAD Alida Euceda MD 111 [facility] 1 [place] [address] Referral ID Status Reason Start Date Expiration Date V isits Requested Visits Authorized [id number] New Request 05/04/2023 1 1 Encounter Details Date Type Department Care Team (Late st Contact Info) Description 05/04/2023 Orders Only [facility] Cardiology Clinic [address] [place] [address] Nicole Macdonald RN Paroxysmal atrial fibrillation (HCC-CMS) (Primary Dx) Social History Tobacco Use Types Packs/Day Years [...] as of this encounter Progress Notes * Nicole Macdonald, RN - 05/04/2023 1526 EDT ekg documented in this encounter Plan of Treatment Upcoming Encounters Date Type Department Care Team (Late st Contact Info) Description 04/02/2024 11:15 EDT Telemedicine [facility] Urology - [address] [address] David Bhatt, DO 111 [facility], Level [address] [place] [phone] 07/12/2024 12:30 EST Hospital Encounter [place] [address] EP Lab [address] [place], [place] [phone] Rodrigo Noyola MD [address] [place] [phone] Paroxysmal atrial fibrillation ([facility]) 07/12/2024 12:30 EST - 07/12/2024 17:00 EST Surgery [place] [address] EP Lab [address] [place], [place] [phone] Rodrigo Noyola MD [address] [phone] Albation A-Fib [[id number] (CPT??)] 07/23/2024 11:00 EST Office Visit [facility] Cardiology Clinic [address] [place] [address] Alida Euceda MD [address] [place] [phone] documented as of this encounter Results * EKG 12-LEAD (05/06/2023 10:51 EDT) 05/06/2023 10:5 1 EDT [facility] 05/06/2023 17:49 EDT ? CVC ? Test Date: ?2023-05-06 Pat Name: ? RALPH GARNICA ?Department: ? Room: ? Gender: ? Male ? 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 [place] : ?1950 ? Requested By: AMADA IRWIN D Order Number: [id number] ? Reading MD: ?? ALIDA EUCEDA MD ? Measurements Intervals ?Leland ? Rate: ? 54 ? P: ?49 MA: ? 184 ?QRS: ?-47 QRSD: ? 142 ?T: ?96 QT: ? 430 ? QTc: ?407 ? Interpretive Statements Sinus bradycardia with marked sinus arrhythmia Right bundle branch block Left anterior fascicular block Bifascicular block T wave abnormality, consider ischemia Compared to ECG 04/21/2023 07:19:26 No significant change I reviewed the tracing and have either agreed or edited the findings in this report. Electronically Signed On 05-06-2023 17:49:52 EDT by ALIDA EUCEDA MD. 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 Electronically Signed On 05-06-2023 17:49:52 EDT by ALIDA BERRY. Alida Euceda MD CARDIAC ECG ORDERABL ES [facility] documented in this encounter Visit Diagnoses Diagnosis Paroxysmal atrial fibrillation (HCC-CMS)- Primary Atrial fibrillation Paroxysmal atrial fibrillation (HCC-CMS)- Primary Atrial fibrillation Paroxysmal atrial fibrillation (HCC-CMS)- Primary Atrial fibrillation Paroxysmal atrial fibrillation (HCC-CMS) Atrial fibrillation documented in this encounter Care Teams Mixer Blender Relationship Specialty Start Date End Date Jessie Velasco [address] [place] [address] PCP - General Internal Medicine - Primary Care 08/26/21 Alida Euceda MD [address] [place] [address] [phone] Consulting Clinician Cardiovascular Disease 11/12/21 documented as of this encounter
--- OUTSIDE RECORDS SUMMARY | 2024-03-27 17:25 | XMS_ITS | Encounter Summary ---
Author Organization [facility] Address [address] [place] [address] Care Team Providers Care Commercial Counsel Name Role Phone Jessie Velasco Primary Care Provider [phone] Malini Euceda MD Unavailable [phone] Encounter Details Date Type Department Care Team (Late st Contact Info) Description 10/04/2023 12:00 EST Phlebotomy Only [facility] - Outpatient Phlebotomy Drawing [address] [place] [address] Lab, [facility] Phlebotomy Penile discharge Social History Tobacco Use Types Packs/Day Years [...] No 04/19/2023 documented as of this encounter Plan of Treatment Upcoming Encounters Date Type Department Care Team (Late st Contact Info) Description 04/02/2024 11:15 EDT Telemedicine [facility] Urology - [address] [phone] David Bhatt, 111 [facility], Level [address] [place] [phone] 07/12/2024 12:30 [facility] Hospital Encounter [place] [address] EP [address] [place] [phone] Rodrigo Noyola MD [address] [place] [address] 1 [place] [phone] Paroxysmal atrial fibrillation (HCC-CMS) 07/12/2024 12:30 EST - 07/12/2024 17:00 EST Surgery [place] [address] EP Lab [address] [place] [phone] Rodrigo Noyola MD [address] [place] [address] 1 [place] [phone] Albation A-Fib [[id number] (CPT??)] 07/23/2024 11:00 EST Office Visit [facility] Cardiology Clinic [address] [place] [address] Malini Euceda MD 111 [facility], [place], Level [address] [place] [phone] documented as of this encounter Procedures Procedure Name Priority Date/Time Associated Diagnosis Comments URINE CHEMICAL (DIP) & SEDIMENT (MICRO) WITHOUT REFLEX TO CULTURE Routine 10/04/2023 12:07 EST Penile discharge BACTERIAL CULTURE, URINE Routine 10/04/2023 12:07 EST Penile discharge documented in this encounter Results * (ABNORMAL) UA CHEMICAL & SEDIMENT (10/04/2023 12:07 EST) Color UA Yellow Colorless, Yellow 10/04/2023 16:24 [facility] Clarity UA Cloudy(A) Clear 10/04/2023 16:24 [facility] Glucose UA Negative Negative mg/dL 10/04/2023 16:24 [facility] Bilirubin UA Negative Negative 10/04/2023 16:24 [facility] Ketones UA Negative Negative 10/04/2023 16:24 [facility] Specific [place], Urine <=1.005 1.001 - 1.030 10/04/2023 16:24 [facility] Blood UA Trace(A) Negative 10/04/2023 16:24 [facility] Nitrite UA Negative Negative 10/04/2023 16:24 [facility] Leukocyte Esterase UA 3+(A) Negative 10/04/2023 16:24 [facility] Protein UA Negative Negative mg/dL 10/04/2023 16:24 [facility] pH, UA 6.0 <8.5 10/04/2023 16:24 [facility] Urine RBC Count, Manual 0 - 2 0 - 2 Cells/HPF 10/04/2023 16:24 EST [facility] Urine WBC Count >50(A) 0 - 3 Cells/HPF 10/04/2023 16:24 EST [facility] Urine Squamous Count, Manual None Seen None Seen Cells/HPF 10/04/2023 16:24 EST [facility] Urine Hyaline Cast Count, Manual <=10 <=10 Casts/LPF 10/04/2023 16:24 EST [facility] Urine Bacteria Count, Manual Moderate(A) None Seen Bacteria/HP F 10/04/2023 16:24 [facility] Urobilinogen UA 0.2 0.2-1.0 mg/dL mg/dL 10/04/2023 16:24 EST [facility] Urine URINE SPECIMEN OBTAINED BY CLEAN CATCH PROCEDURE / Unknown Urine Collect / Unknown 10/04/2023 12:07 EST 10/04/2023 15:52 EST Narrative [facility] - 10/04/2023 16:24 EST Urine Sediment Analysis results are unreliable on urines that are unrefrigerated for >2 hrs or refrigerated >8 hrs. David Bhatt DO URINALYSIS ORDERABL ES Performing Organization Address [facility] Co de Phone Number [facility] [address] [place] [address] * BACTERIAL CULTURE, URINE (10/04/2023 12:07 EST) Organism ID No Growth VITEK SUSCEPTIBILITY 10/06/2023 10:57 EST [facility] Urine URINE SPECIMEN OBTAINED BY CLEAN CATCH PROCEDURE / Unknown Urine Collect / Unknown 10/04/2023 12:07 EST 10/04/2023 15:52 EST David Bhatt DO MICROBIOLOGY - GENE RAL ORDERABLES Performing Organization Address [facility] Co de Phone Number [facility] [address] [place] [address] documented in this encounter Visit Diagnoses Diagnosis Penile discharge Urethral discharge Paroxysmal atrial fibrillation (HCC-CMS)- Primary Atrial fibrillation Paroxysmal atrial fibrillation (HCC-CMS) Atrial fibrillation documented in this encounter Care Teams Commercial Counsel Relationship Specialty Start Date End Date Jessie Velasco [address] [place] [address] PCP - General Internal Medicine - Primary Care 08/26/21 Malini Euceda MD [address] [place] [address] [address] [place] [phone] Consulting Clinician Cardiovascular Disease 11/12/21 documented as of this encounter
--- OUTSIDE RECORDS SUMMARY | 2024-03-27 17:25 | XMS_ITS | Encounter Summary ---
Author Organization [facility] Address [address] [place] [address] Care Team Providers Care Yarn Finisher Name Role Phone Krista Jessie R Primary Care Provider Malini Euceda MD Unavailable [phone] Reason for Referral * Radiology Services (Routine/Next Available) - Authorization Not Required Specialty Diagnoses / Procedures Referred By Controse t Referred To Contact Diagnoses Gross hematuria Procedures US RENAL/BLADDER COMPLETE David Bhatt DO [address] [place] [phone] [facility] Referral ID Status Reason Start Date Expiration Date Visits Requested Visits Authorized [id number] Authorization Not Required 01/19/2024 1 1 Reason for Visit * Reason Onset Date Comments Hematuria 01/16/2024 Encounter Details Date Type Department Care Team (Late st Contact Info) Description 01/16/2024 Telephone [facility] Urology - [address] [address] David Bhatt DO [address] [address] Hematuria Social History Tobacco Use Types Packs/Day Years [...] encounter Miscellaneous Notes * Telephone Encounter - Kimberly San RN - 01/19/2024 0956 EDT David Bhatt DO sent to P Urology Nurse NOW ua, urine c/s, renal and bladder us and office exam, urine analysis and cytology over next 3-4 week period. Patient just had UA and urine c/s - done on 01/15. Will order JOHN for [facility] and route to [facility] for office exam, UA, cytology. Call to patient to update him, but had to LM requesting call back. * Telephone Encounter - Kimberly San RN - 01/18/2024 1325 EDT Patient's 01/15 Urine Cx = No Growth Per December 2022 check out form, patient was due for PSA, Cr, UA, and f/u appt. Will route to Dr. Bhatt to see about gross hematuria workup. * Telephone Encounter - Barbie Bae RN - 01/17/2024 1046 EDT Phone call from patient who states that he had a microalbumin assessed at [facility]. Phone call to this facility to request results be sent. Patient reports that his hematuria has decreased. Patient denies other urinary symptoms and is otherwise feeling well aside from what he describes as natural course of aging including fatigue earlier in the day and requiring increased sleep over the last 2-3 years. Patient states that he did notice bruising after his Trulicity shot that is abnormal for him. Denies other symptoms of bleeding, and encouraged him to discuss with PCP or veneer repairer machine if s/s of bleeding continue as he is on Eliquis. Plan is to review urine results as they are completed. * Telephone Encounter - Ro Haywood - 01/17/2024 1005 EDT The patient states he got his test results in the mail today from [facility] and would like to give the results to the nruse * Telephone Encounter - Kimberly San RN - 01/16/2024 1413 EDT Previous GH workup - CTU 01/2022 Cytology 05/2022 Patient reports gross hematuria again today. Orangey-red. No other urinary symptoms. Sometimes dark and cloudy urine - ongoing for 2 months. Patient reports he's been to [facility] multiple times in the past months - nothing in chart. Confirmed he's still taking tamsulosin - takes it in the morning. Some trouble with volume in the morning. Drinks coffee and water during the day, as well as juice, sounds like fluid total is >64 oz. Thinks he'll get to [facility] this afternoon. Staff msg for Wed. * Telephone Encounter - Randall Mahmood - 01/16/2024 1321 EDT Patient states he is experiencing blood in urine and thinks he may have infection. documented in this encounter Plan of Treatment Upcoming Encounters Date Type Department Care Team (Late st Contact Info) Description 04/02/2024 11:15 EDT Telemedicine [facility] Urology - [address] [phone] David Bhatt, 111 [facility] 5 [place] [phone] 07/12/2024 12:30 EST Hospital Encounter [place] [address] EP [address] [place] [phone] Rodrigo Noyola MD [address] [place] [phone] Paroxysmal atrial fibrillation ([facility]) 07/12/2024 12:30 EST - 07/12/2024 17:00 EST Surgery [place] 1 EP Lab [address] [place] [phone] Rodrigo Noyola MD [address] [place] [phone] Eliocj Woo [[id number] (CPT??)] 07/23/2024 11:[address] [facility] Cardiology Clinic [address] [place] [address] Malini Euceda MD 111 [facility], [place], Level [address] [place] [address] documented as of this encounter Results * US RENAL/BLADDER COMPLETE (02/09/2024 12:53 EDT) Anatomical Region Laterality Modality Abdomen, Body Ultrasound 02/10/2024 16:5 1 EDT Impressions 02/10/2024 16:51 EDT 1. Bilateral renal cysts. 2. Post void residual urinary bladder volume of 556 mL. 3. Generalized urinary bladder wall thickening which has an irregular-corrugated appearance. 4. Mild prostatomegaly, incompletely visualized. [id number] Narrative 02/10/2024 16:51 EDT US RENAL/BLADDER COMPLETE [...] a slightly enlarged prostate. Resulting Agency Comment [id number] Procedure Note Fito Gurrola MD - 02/10/2024 [...] anirregular-corrugated appearance. 4. Mild prostatomegaly, incompletely visualized. [id number] David Bhatt DO IMG US ORDERABLES * BACTERIAL CULTURE, URINE (01/16/2024 15:16 EDT) Organism ID No Growth VITEK SUSCEPTIBILITY 01/18/2024 11:15 EDT [facility] Urine URINE SPECIMEN OBTAINED BY CLEAN CATCH PROCEDURE / Unknown Urine Collect / Unknown 01/16/2024 15:16 EDT 01/16/2024 17:12 EDT David Bhatt DO MICROBIOLOGY - GENE RAL ORDERABLES [facility] [address] [place] [address] * (ABNORMAL) UA CHEMICAL & SEDIMENT (01/16/2024 15:16 EDT) Color UA Yellow Colorless, Yellow 01/16/2024 17:49 [facility] Clarity UA Cloudy(A) Clear 01/16/2024 17:49 [facility] Glucose UA Negative Negative mg/dL 01/16/2024 17:49 [facility] Bilirubin UA Negative Negative 01/16/2024 17:49 [facility] Ketones UA Negative Negative 01/16/2024 17:49 [facility] Specific [place], Urine 1.020 1.001 - 1.030 01/16/2024 17:49 [facility] Blood UA 3+(A) Negative 01/16/2024 17:49 [facility] Nitrite UA Negative Negative 01/16/2024 17:49 [facility] Leukocyte Esterase UA 1+(A) Negative 01/16/2024 17:49 [facility] Protein UA Trace(A) Negative mg/dL 01/16/2024 17:49 [facility] pH, UA 6.0 <8.5 01/16/2024 17:49 [facility] Urine RBC Count, Manual >50(A) 0 - 2 Cells/HPF 01/16/2024 17:49 [facility] Urine WBC Count >50(A) 0 - 3 Cells/HPF 01/16/2024 17:49 [facility] Urine Squamous Count, Manual None Seen None Seen Cells/HPF 01/16/2024 17:49 [facility] Urine Hyaline Cast Count, Manual <=10 <=10 Casts/LPF 01/16/2024 17:49 [facility] Urine Bacteria Count, Manual Moderate(A) None Seen Bacteria/HP F 01/16/2024 17:49 [facility] Urobilinogen UA 0.2 0.2-1.0 mg/dL mg/dL 01/16/2024 17:49 [facility] Urine URINE SPECIMEN OBTAINED BY CLEAN CATCH PROCEDURE / Unknown Urine Collect / Unknown 01/16/2024 15:16 EDT 01/16/2024 17:12 EDT Narrative [facility] - 01/16/2024 17:49 EDT Urine Sediment Analysis results are unreliable on urines that are unrefrigerated for >2 hrs or refrigerated >8 hrs. David Bhatt DO URINALYSIS ORDERABL ES [facility] [address] [place], [place] [phone] documented in this encounter Visit Diagnoses Diagnosis Paroxysmal atrial fibrillation (HCC-CMS)- Primary Atrial fibrillation Gross hematuria- Primary Gross hematuria Paroxysmal atrial fibrillation (HCC-CMS) Atrial fibrillation documented in this encounter Care Teams Yarn Finisher Relationship Specialty Start Date End Date Jessie Velasco [address] [place] [address] PCP - General Internal Medicine - Primary Care 08/26/21 Malini Euceda MD 130 [facility] [address] [place] [address] Consulting Clinician Cardiovascular Disease 11/12/21 documented as of this encounter
--- OUTSIDE RECORDS SUMMARY | 2024-03-27 17:25 | XMS_ITS | Encounter Summary ---
Author Organization [facility] Address [address] [place] [address] Care Team Providers Care Solidworks Drafter Name Role Phone Krista Jessie Frank Primary Care Provider [phone] Malini Euceda MD Unavailable [phone] Reason for Referral * Consult (Routine/Next Available) - Specialty Report Received Specialty Diagnoses / Procedures Referred By [facility] Referred To Contact Cardiology Diagnoses Paroxysmal atrial fibrillation ([facility]) Malini Euceda MD [address] [place] [phone] [facility] Cardiology [address] [place] [id number] Referral ID Status Reason Start Date Expiration Date Visits Requested Visits Authorized [id number] Specialty Report Received Specialty Services Required 08/05/2023 1 1 Question Answer Reason for Request: 73 year old male with symptomatic atrial fibrillation/flutter, interested in more information regarding ablation * Cardiology (Routine/Next Available) - Specialty Report Received Specialty Diagnoses / Procedures [facility] Referred To Contact Diagnoses Nonrheumatic aortic valve stenosis Procedures TRANSTHORACIC ECHO (TTE) COMPLETE DE ECHO HEART XTHORACIC,COMPLETE W DOPPLER Malini Euceda MD [address] [phone] [facility] Referral ID Status Reason Start Date Expiration Date V isits Requested Visits Authorized [id number] Specialty Report Received 08/05/2023 1 1 Reason for Visit * Reason Comments Follow-up * Consult (Urgent) - Authorization Not Required Specialty Diagnoses / Procedures Referred By Janie weinstein Referred To Contact Cardiology Diagnoses Atrial flutter with rapid ventricular response (HCC-CMS) Jewel Cornell MD [address] [place] [phone] [facility] Card[facility] [address] [place] [id number] Referral ID Status Reason Start Date Expiration Date Visits Requested Visits Authorized [id number] Authorization Not Required Specialty Services Required 07/24/20 23 1 1 Encounter Details Date Type Department Care Team (Late st Contact Info) Description 08/05/2023 16:30 EST Office Visit [facility] Card[facility] Clinic [address] [place] [address] Malini Euceda MD [address] [phone] Paroxysmal atrial fibrillation (HCC-CMS) (Primary Dx); Nonrheumatic aortic valve stenosis Social History Tobacco Use Types Packs/Day Years [...] on file documented as of this encounter Last Filed Vital Signs Vital Sign Reading Time Taken Comments Blood Pressure 140/68 08/05/2023 1606 EST Pulse 69 08/05/2023 1606 EST Temperature - - Respiratory Rate - - Oxygen Saturation 97% 08/05/2023 1606 EST Inhaled Oxygen Concentration - - Weight 100.6 kg (221 lb 12.8 oz) 08/05/2023 1606 EST Height 182.9 cm (6') 08/05/2023 1606 EST Body Mass Index 30.08 08/05/2023 1606 EST documented in this encounter Functional Status Functional Status Response [...] Dispensed Refills Start Date End Da te dilTIAZem (CARDIZEM CD) 120 mg capsuleIndications:Pa roxysmal atrial fibrillation (HCC-CMS) Take 1 Capsule by mouth daily. 90 Capsule 3 08/05/2023 dilTIAZem (CARDIZEM) 30 mg tabletIndications:Par oxysmal atrial fibrillation (HCC-CMS) Take 1 Tablet by mouth 4 times daily as needed for Other (for atrial fibrillaiton > 100 bpm). 30 Tablet 3 08/05/2023 dilTIAZem (CARDIZEM CD) 120 mg capsuleIndications:Pa roxysmal atrial fibrillation (HCC-CMS) Take 1 Capsule by mouth daily. 90 Capsule 3 08/05/2023 08/05/2023 documented in this encounter Progress Notes * Malini Euceda MD - 08/05/2023 1630 EST [facility] Cardiology Office Visit Subjective: Chief Complaint(s): Follow-up HPI: 73-year-old man with a history of type 2 diabetes, hypertension, hyperlipidemia with CAD (NSTEMI 08/2021) who presents for routine follow-up. Underwent a PET stress test ( which showed no perfusion defects and normal myocardial blood flow. Since our last visit has had 2 episodes of fibrillation/flutter. One was in which ultimately required an inpatient cardioversion. The second episode was in and spontaneously cardioverted after IV diltiazem. He presents today to to discuss further management strategies. He is quite symptomatic with his episodes of atrial fibrillation/flutter- rapid heart beat and chest discomfort. Cardiac History 08-26-2021: Admitted with chest pressure and was found to have a troponin that peaked at 1.2. His left heart catheterization was notable for moderate disease multiple vessels, however no clear culprit. No stents placed. Treated medically. Outpatient Medications Marked as Taking for the 08/05/23 encounter (Office Visit) with Delon Euceda MD Medication Sig ??? apixaban (ELIQUIS) 5 mg tablet Take 1 Tablet by mouth 2 times daily. ??? atorvastatin (LIPITOR) 40 mg tablet Take 1 Tablet by mouth every evening. ??? cyanocobalamin, vitamin B-12, 1,000 mcg capsule Take 1,000 mcg by mouth daily. ??? dilTIAZem (CARDIZEM CD) 120 mg capsule Take 1 Capsule by mouth daily. ??? [DISCONTINUED] dilTIAZem (CARDIZEM CD) 120 mg capsule Take 1 Capsule by mouth daily. ??? dilTIAZem (CARDIZEM) 30 mg tablet Take 1 Tablet by mouth 4 times daily as needed for Other (foratrial fibrillaiton > 100 bpm). ??? losartan (COZAAR) 25 mg tablet Take 1 Tablet by mouth daily. ??? magnesium oxide (MAG-OX) 400 mg (241.3 mg magnesium) tablet Take 1 Tablet by mouth daily. ??? metFORMIN (GLUCOPHAGE) 1,000 mg tablet Take 1 Tablet by mouth every morning. ??? metFORMIN (GLUCOPHAGE) 1,000 mg tablet Take 0.5 Tablets by mouth every evening. ??? nitroglycerin (NITROSTAT) 0.[address] 1 Tablet under the tongue every 5 minutes as needed for Chest Pain. (if needing to take 3rd tablet, call 911) ??? Poirt-0-CCI-EPA-Fish Oil (FISH OIL) 1,200 (144-216) mg capsule Take 1,200 mg by mouth daily. (Patient taking differently: Take 1,200 mg by mouth 2 times daily.) ??? ONETOUCH ULTRA BLUE TEST STRIP test strips TEST TWICE DAILY ??? ONETOUCH ULTRASOFT LANCETS TEST TWICE DAILY ??? TAMSulosin (FLOMAX) 0.4 mg capsule Take 1 Capsule by mouth daily. ??? TRULICITY 0.75 mg/0.5 mL subcutaneous pen Inject 0.5 mL into the skin once a week. On Sundays I have reviewed current problem list and current medications. ROS: Review of Systems Constitutional: Negative for malaise/fatigue. Cardiovascular: Positive for chest pain. Negative for palpitations, claudication and leg swelling. Objective: Examination: Vitals: BP 140/68 (BP Cuff Location: Right arm, BP Patient Position: Sitting, BP Cuff Sizes: Adult, large) Pulse 69 Ht 182.9 cm (72) Wt 100.6 kg (221 lb 12.8 oz) SpO2 97% BMI 30.08 kg/m?? Body mass index is 30.08 kg/m??. Physical Exam Constitutional: Appearance: Normal appearance. Cardiovascular: Rate and Rhythm: Normal rate and regular rhythm. Heart sounds: Murmur (systolic ejection murmur) heard. No gallop. Neurological: Mental Status: He is alert. Labs: Lab Results Component Value Date CHOL 127 03/28/2023 CHOL 117 11/13/2021 CHOL 155 08/27/2021 HDL 43 03/28/2023 HDL 39 11/13/2021 HDL 49 08/27/2021 LDLBASE 58 03/28/2023 LDLBASE 61 11/13/2021 LDLBASE 83 08/27/2021 TRIG 130 03/28/2023 TRIG 85 11/13/2021 TRIG 114 08/27/2021 CHOLHDL 3.0 03/28/2023 CHOLHDL 3.0 11/13/2021 CHOLHDL 3.2 08/27/2021 BUN Date Value Ref Range Status 07/24/2023 20 10 - 26 mg/dL Final 01/30/2014 20 10 - 26 mg/dl Final Creatinine Date Value Ref Range Status 07/24/2023 1.22 0.66 - 1.25 mg/dL Final 01/30/2014 1.20 0.66 - 1.25 mg/dl Final Potassium Date Value Ref Range Status 07/24/2023 4.4 3.5 - 5.0 mmol/L Final 01/30/2014 4.6 3.5 - 5.0 mEq/L Final Magnesium Date Value Ref Range Status 07/24/2023 1.9 1.7 - 2.8 mg/dL Final WBC Date Value Ref Range Status 07/24/2023 5.75 4.00 - 10.40 K/cmm Final 01/30/2014 7.94 4.0 - 10.4 K/cmm Final Hemoglobin Date Value Ref Range Status 07/24/2023 16.6 13.8 - 17.3 g/dL Final 01/30/2014 13.2 (L) 13.8 - 17.3 gm/dl Final PLT Date Value Ref Range Status 07/24/2023 219 141 - 377 K/cmm Final 01/30/2014 221 141 - 320 K/cmm Final TSH Date Value Ref Range Status 04/18/2023 7.75 (H) 0.47 - 4.68 mIU/L Final No results found for: HGBA1C No results found for: NTBNP Assessment & Plan: 73-year-old man with a history of type 2 diabetes, hypertension, hyperlipidemia with recent NSTEMI (08/2021) who presents for routine visit. NSTEMI: Diagnosed in with troponin peaking at 1.2. Left heart cath showed moderate lesions without significant culprit. Preserved ejection fraction. PET stress (09/2022) with normal myocardial flow reserve. Original culprit unclear, potentially plaque disruption with distal embolization. - On Apixaban for atrial flutter - Continue Lipitor 40 mg, LDL at goal of less than 70. Atrial flutter/fibrillation: Symptomatic (chest discomfort, palpitations). More frequent episodes as of late- admitted in with need for electrical cardioversion. ED visit for rapid atrial fibrillation in . We discussed several management strategies, including starting daily diltiazemwith as needed diltiazem on top. We discussed dofetilide and amiodarone. We also discussed an ablation. He is interested in learning more about an ablation so we will place an EP referral. In the meantime we will start diltiazem 120 mg long-acting with 30 mg every 6 hours as needed for atrial fibrillation with rates greater than 100 bpm. Eliquis. Moderate aortic stenosis: No symptoms. Last TTE 08/26. Repeat TTE ordered today. Return to clinic in 5 months I spent a total of 45 minutes on the date of this encounter as indicated in the above progress note. Malini Euceda MD documented in this encounter Plan of Treatment Upcoming Encounters Date Type Department Care Team (Late st Contact Info) Description 04/02/2024 11:15 EDT Telemedicine [facility] Urology - [address] [phone] David Bhatt, 111 [facility], Level [address] [place] [phone] 07/12/2024 12:30 EST Hospital Encounter [place] [facility] EP [facility] [address] [place], [place] [phone] Rodrigo Noyola MD 111 [facility], Level [address] [place] [phone] Paroxysmal atrial fibrillation (HCC-CMS) 07/12/2024 12:30 EST - 07/12/2024 17:00 EST Surgery [place] [facility] EP Lab [address] [place], [place] [phone] Rodrigo Noyola MD 111 [facility], [facility] 1 [place] [address] Bryce Woo [[id number] (CPT??)] 07/23/2024 11:00 EST Office Visit [facility] Cardiology Clinic [address] [place] [address] Malini Euceda MD [address] [phone] Scheduled Referrals Name Type Priority Associated Diagnoses Order Schedule AMB CONS/FOLLOW UP CARDIAC ELECTROPHYSIOLOGY Outpatient Referral Routine/Next Available Paroxysmal atrial fibrillation (HCC-CMS) Expected: 08/12/2023 (Approximate) , Expires: 08/05/2024 documented as of this encounter Results * TRANSTHORACIC ECHO (TTE) COMPLETE W/DOPPLER W/CF NO CONTRAST (11/29/2023 8:17 EDT) LV E/e', lateral 11.0 MER[facility]IO Mitral E/A ratio, peak 1.40 [facility] LV ID, ED, PLAX 5.0 3.5 - 6.0 cm [facility] LV ID, ES, PLAX 3.2 2.1 - 4.0 cm [facility] LV PW thickness, ED, PLAX 1.2 0.6 - 1.1 cm [facility] LV ejection fraction, 1-p A4C 51 % [facility] LV end-diastolic volume, 1-p A4C 72 ml [facility] LV ejection fraction, 1-p A2C 65 % [facility] LV end diastolic volume 1-p A2C 63 ml [facility]IO EF 60 % [facility] LVOT ID, S 2.1 cm [facility] LVOT area 3.5 cm2 [facility] LVOT peak velocity, S 0.9 m/s [facility] LVOT mean velocity, S 0.6 m/s [facility] LVOT VTI, S 23.5 cm [facility] AV LVOT peak gradient 3 mmHg [facility] LVOT mean gradient, S 2 mmHg [facility] Stroke volume (SV), LVOT DP 81 ml [facility] Stroke index (SV/bsa) LVOT DP 35.0 ml/m2 [facility] LV Diastolic Volume 120 mL [facility] LV Systolic Volume 39 mL [facility] LVIDD BY MMODE 5.0 cm [facility] LV e', lateral 7.20 m/s [facility]IO LV e', medial 6.50 m/s [facility] LV E/e', medial 6.5 [facility] LV E/e', average 9 [facility] Mitral deceleration time 243 ms [facility]IO Mitral E-wave peak velocity 0.8 m/s [facility]IO Mitral A-wave peak velocity 0.6 m/s [facility] LA ID, A-P, ES 4.9 cm [facility] LA Atrial Area A4C 33.8 cm2 [facility] LA Atrial Area A2C 33.8 cm2 [facility] LA volumes, ES, A4C 132.0 ml [facility] LA volume/bsa, ES, A4C 57.0 ml/m2 [facility] LA volume, ES, BP 126.0 ml [facility] LA volume/bsa, ES, BP 54.0 ml/m2 [facility] LA/aortic root ratio 1.58 [facility]I O LA Atrial Length A4C 6.6 cm [facility]I O LA Atrial Length A2C 7.1 cm [facility]I O Aortic valve peak velocity, S 3.2 m/s [facility]IO Aortic valve mean velocity, S 2.2 m/s [facility] Aortic valve VTI, S 67.5 cm [facility] Aortic valve area VTI 1.2 cm2 [facility] Aortic valve area, peak velocity 1.0 cm2 [facility] Aortic peak gradient, S 42 mmHg [facility] Aortic mean gradient, S 22 mmHg [facility] AV DOI 0.29 [facility] Velocity ratio, mean, LVOT/AV 0.28 [facility] AVAI Pk Brett 0.4 cm2/m2 [facility] Mitral peak gradient, D 3 mmHg [facility] Aortic root ID 3.6 cm [facility] Ascending aorta ID, a-p 3.6 cm [facility] AV dimensionless index (DI) 0.5 [facility] Aortic valve area 1 cm2 [facility] Pulmonic valve mean velocity, S 1 cm/s [facility] Interventricular Septum to Posterior Wall Thickness Ratio 0.9 [facility] LVET 307 ms [facility] Anatomical Region Laterality Modality Ultrasound Narrative 11/29/2023 13:09 EDT ?Left??Ventricle: Left ventricular systolic function was normal with an ejection fraction of 60-65%. ?Right??Ventricle: The right ventricular cavity was normal in size. Right ventricular systolic function was normal. ?Aortic??Valve: There was moderate aortic valve stenosis. AV Peak Velocity: 3.2 m/s. AV Mean Gradient: 22 mmHg. AV Area VTI: 1.2 cm2. Left Ventricle The left ventricular cavity was normal in size. Left ventricular systolic function was normal with an ejection fraction of 60-65%. Left ventricular diastolic function cannot be determined based on the findings of the study. There was mild hypertrophy of the left ventricle. Left ventricular wall motion was normal; there were no regional wall motion abnormalities. Right Ventricle The right ventricular cavity was normal in size. Right ventricular systolic function was normal. Right ventricular wall thickness was normal. Left Atrium Left atrial cavity was severely dilated. Right Atrium Right atrial cavity was dilated. IVC/SVC The inferior vena cava was normal in size. The inferior vena cava demonstrated a diameter of <=21 mm and collapses >50%; therefore, the right atrial pressure is estimated at 0-5 mmHg. Mitral Valve Mitral valve structure was normal. There was mild posterior annular calcification. There was trace mitral regurgitation. There was no significant mitral valve stenosis. Tricuspid Valve Tricuspid valve structure was normal. There was trace tricuspid valve regurgitation. There was no tricuspid valve stenosis. Aortic Valve The aortic valve structure was trileaflet. The aortic leaflets moderately calcified. There was moderate aortic valve stenosis. There was no aortic valve regurgitation. AV Peak Velocity: 3.2 m/s. AV Mean Gradient: 22 mmHg. AV Area VTI: 1.2 cm2. Pulmonic Valve There was no significant pulmonic valve regurgitation. There was no pulmonic valve stenosis. Ascending Aorta The aortic root was normal in size. The ascending aorta was normal in size. Pericardium There was no pericardial effusion. Pulmonic Artery Unable to assess PA pressure, due to suboptimal tricuspid regurgitation envelope. Study Details Study status: Routine. Transthoracic echocardiography. M-Mode, complete 2D, complete spectral Doppler, and color Doppler.Scanning was performed from the apical, parasternal, subcostal and suprasternal acoustic windows. Overall the study quality was adequate. Images were obtained using cardiac ultrasound machine [id number]. Malini Euceda MD CARDIAC ECHO ORDERAB LES documented in this encounter Visit Diagnoses Diagnosis Paroxysmal atrial fibrillation (HCC-CMS)- Primary Atrial fibrillation Nonrheumatic aortic valve stenosis Aortic valve disorders Paroxysmal atrial fibrillation (HCC-CMS)- Primary Atrial fibrillation Nonrheumatic aortic valve stenosis Aortic valve disorders Paroxysmal atrial fibrillation (HCC-CMS) Atrial fibrillation documented in this encounter Discontinued Medications Medication Sig Discontinue Reason Start Date End Da te dilTIAZem (CARDIZEM CD) 120 mg capsuleIndications:Paro xysmal atrial fibrillation (HCC-CMS) Take 1 Capsule by mouth daily. Patient Stopped Taking 08/05/2023 08/05/2023 documented as of this encounter Historical Medications * This list may reflect changes made after this encounter. Medication Sig Dispensed Refills Start Date End Date magnesium oxide (MAG-OX) 400 mg (241.3 mg magnesium) tablet Take 1 Tablet by mouth daily. added in this encounter Care Teams Solidworks Drafter Relationship Specialty Start Date End Date Jessie Velasco [address] [place] [address] PCP - General Internal Medicine - Primary Care 08/26/21 Malini Euceda MD [address] [place] [address] [address] [place] [phone] Consulting Clinician Cardiovascular Disease 11/12/21 documented as of this encounter
--- OUTSIDE RECORDS SUMMARY | 2024-03-27 17:25 | XMS_ITS | Encounter Summary ---
Author Organization [facility] Address [address] [place] [address] Care Team Providers Care Mallet And Die Cutter Name Role Phone MercyrosieJessie Frank Primary Care Provider Malini Euceda MD Unavailable [phone] Reason for Visit * Reason Onset Date Comments Appointment Related 12/28/2023 Encounter Details Date Type Department Care Team (Late st Contact Info) Description 12/28/2023 Telephone [facility] Urology - [address] [address] David Bhatt, DO 111 [facility], Level [address] [place] [phone] Appointment Related Social History Tobacco Use Types [...] encounter Miscellaneous Notes * Telephone Encounter - Amaya Cardoso - 01/09/2024 1145 EDT Patient calling, asking if he can switch to Dr Lauren due to Dr Bhatt retiring. Please advise * Telephone Encounter - Celestino Bazan - 12/28/2023 1428 EDT Spoke to pt, Rescheduled 1yr to Friday 05/25@ 2pm * Telephone Encounter - Rodo Pedroza - 12/28/2023 1413 EDT Patient calling to reschedule appointment for 04/20 due to travel. Venetian Blind Maker unable to find appointmentat this time. Please advise. documented in this encounter Plan of Treatment Upcoming Encounters Date Type Department Care Team (Late st Contact Info) Description 04/02/2024 11:15 EDT Telemedicine [facility] Urology - [address] [phone] David Bhatt DO 111 [facility], Level [address] [place] [phone] 07/12/2024 12:30 EST Hospital Encounter [place] [address] [place] [phone] Rodrigo Noyola MD [address] [place] [phone] Paroxysmal atrial fibrillation ([facility]) 07/12/2024 12:30 EST - 07/12/2024 17:00 EST Surgery [place] [address] [place] [phone] Rodrigo Noyola MD [address] [place] [phone] [facility] A-Fib [[id number] (CPT??)] 07/23/2024 11:00 EST Office Visit [facility] Cardiology Clinic [address] [place] [phone] Malini Euceda MD [address] [place] [phone] documented as of this encounter Visit Diagnoses Not on filedocumented in this encounter Care Teams Mallet And Die Cutter Relationship Specialty Start Date End Date Jessie Velasco [address] [place] [address] [place], [place] [phone] PCP - General Internal Medicine - Primary Care 12/22/21 Malini Euceda MD [address] [place] [address] [address] [phone] Consulting Clinician Cardiovascular Disease 11/12/21 documented as of this encounter
--- OUTSIDE RECORDS SUMMARY | 2024-03-27 17:25 | XMS_ITS | Encounter Summary ---
Author Organization [facility] Address [address] [place] [address] Care Team Providers Care Strip Deburrer Name Role Phone Jessie Velasco Primary Care Provider Malini Euceda MD Unavailable [phone] Encounter Details Date Type Department Care Team (Late st Contact Info) Description 06/27/2023 Documentation Visit [facility] Therapy [address] [place], [place] [phone] Eloise Goncalves, PT [address] [phone] Social History Tobacco Use Types Packs/Day Years [...] as of this encounter Progress Notes * Eloise Goncalves, PT - 06/27/2023 1003 EDT [facility] [phone] Physical Therapy Discharge Not Seen Recently Therapy Diagnosis: mobility impairment secondary achilles tendonitis Referring Clinician: Jessie Velasco Reporting Period: 04/13/23 to 05/05/23 Physical Therapy Program to Date: In summary, the program has included: Ralph has been seen for 3 visits at PT, including Taping to unload achilles and instruction in exercises including eccentric achilles protocol Goal Review: Status unknown Discharge Reason: at the time of ralph's last visit he was reporting improved pain; he did not request further appts Discharge patient at this time; future therapy will require a new physician's referral. documented in this encounter Plan of Treatment Upcoming Encounters Date Type Department Care Team (Late st Contact Info) Description 04/02/2024 11:15 EDT Telemedicine [facility] [place] [address] David Bhatt DO 111 [facility], [facility] 5 [place] [phone] 07/12/2024 12:30 EST Hospital Encounter [place] [address] EP Lab [address] [place], [place] [phone] Rodrigo Noyola MD [address] [place] [phone] Paroxysmal atrial fibrillation ([facility]) 07/12/2024 12:30 EST - 07/12/2024 17:00 EST Surgery [place] [address] [address] [place] [phone] Rodrigo Noyola MD [address] [place] [phone] [facility] A-Fib [[id number] (CPT??)] 07/23/2024 11:00 EST Office Visit [facility] Cardiology Clinic [address] [place] [address] Malini Euceda MD [address] [place] [phone] documented as of this encounter Visit Diagnoses Not on filedocumented in this encounter Care Teams Strip Deburrer Relationship Specialty Start Date End Date Jessie Velasco [address] [place] [address] PCP - General Internal Medicine - Primary Care 08/26/21 Malini Euceda MD [address] [place] [address] [place] [phone] Consulting Clinician Cardiovascular Disease 11/12/21 documented as of this encounter
--- OUTSIDE RECORDS SUMMARY | 2024-03-27 17:25 | XMS_ITS | Encounter Summary ---
Author Organization [facility] Address [address] [place] [address] Care Team Providers Care Chief Writer Name Role Phone Krista Jessie R Primary Care Provider Malini Euceda MD Unavailable [phone] Encounter Details Date Type Department Care Team (Late st Contact Info) Description 10/28/2023 Orders Only [facility] Radiology - [facility] [address], [place] [phone] Alex Barrera MD [address] [facility], Level [address] [place] [address] Social History Tobacco Use Types Packs/Day Years [...] Contact Info) Description 04/02/2024 11:15 EDT Telemedicine [facility] Urology - [address] [phone] David Bhatt DO [address] [facility], [facility] [address] [place] [phone] 07/12/2024 12:30 EST Hospital Encounter [facility] [address], [place] [id number] Rodrigo Noyola MD 111 [facility] 1 [place] [id number] Paroxysmal atrial fibrillation (HCC-CMS) 07/12/2024 12:30 EST - 07/12/2024 17:00 EST Surgery [facility] [address], [place] [phone] Rodrigo Noyola MD [address] [facility], [facility] [address] [place] [address] Bryce Woo [[id number] (CPT??)] 07/23/2024 11:00 EST Office Visit [facility] [address] [place] [address] Malini Euceda MD [address] [facility] [address] [place] [address] documented as of this encounter Visit Diagnoses Not on filedocumented in this encounter Care Teams Chief Writer Relationship Specialty Start Date End Date Jessie Velasco [address] [place] [phone] PCP - General Internal Medicine - Primary Care 08/26/21 Malini Euceda MD [address] [facility] [address] [place] [address] Consulting Clinician Cardiovascular Disease 11/12/21 documented as of this encounter
--- OUTSIDE RECORDS SUMMARY | 2024-03-27 17:25 | XMS_ITS | Encounter Summary ---
Author Organization [facility] Address [address] [place] [address] Care Team Providers Care Grounds And Nursery Specialist Name Role Phone Jessie Velasco Primary Care Provider [phone] Malini Euceda MD Unavailable [phone] Reason for Referral * Consult (Urgent) - Authorization Not Required Specialty Diagnoses / Procedures Referred By Janie weinstein Referred To Contact Cardiology Diagnoses Atrial flutter with rapid ventricular response (HCC-CMS) Jewel Cornell MD [address] [place] [phone] [facility] [address] [place] [id number] Referral ID Status Reason Start Date Expiration Date Visits Requested Visits Authorized [id number] Authorization Not Required Specialty Services Required 07/24/20 23 1 1 Question Answer Reason for Request: Follow-up paroxysmal AF Reason for Visit * Reason Comments Irregular Heart Beat PT arrives with com plaints of chest pressure and racing heart rate that woke him at 0030 this morning. States this feels similar to how it felt before he had his cardioversion in April. States that it has calmed down some since arriving, but reports that it is still uncomfortable. Encounter Details Date Type Department Care Team (Late st Contact Info) Description 07/24/2023 1:43 EST - 07/24/2023 10:[address] [facility] Emergency Department [address] [facility] [place] [address] Annelise Taylor DO [address] [facility] [phone] Jewel Cornell MD [address] [facility] [place] [phone] Atrial flutter with rapid ventricular response (HCC-CMS) (Primary Dx); Chest pain, unspecified type Discharge Disposition: Home or Self Care Social [...] Sign Reading Time Taken Comments Blood Pressure 154/75 07/24/2023 1000 EST Pulse 54 07/24/2023 1000 EST Temperature 36.4 ??C (97.6 ??F) 07/24/2023 0205 EST Respiratory Rate 8 07/24/2023 1000 EST Oxygen Saturation 99% 07/24/2023 1000 EST Inhaled Oxygen Concentration - - Weight 99.8 kg (220 lb) 07/24/2023 0205 EST Height 182.9 cm (6') 07/24/2023 0205 EST Body Mass Index 29.84 07/24/2023 0205 EST documented in this encounter Functional Status [...] No 04/19/2023 documented as of this encounter Discharge Instructions * Discharge Instructions* Annelise Taylor DO - 07/24/2023 6:58 EST You were seen in the emergency room today for chest pain and palpitations. Your initial EKG showed atrial flutter with a rapid ventricular response which improved with diltiazem. Ultimately you converted back to sinus bradycardia. Your troponin which looks at how well the heart is getting oxygen was mildly elevated but did not increase when we repeated it and is likely due to a small amount of demand ischemia from your elevated heart rate during your episode of atrial flutter. Please call Dr. Euceda office tomorrow to discuss if she would like you to follow-up sooner than your scheduled appointment in a month. Please continue to take your medications as previously prescribed. Please return to the emergency room if you have difficulty breathing, palpitations, chest pain, or any other new or concerning symptoms. * Attachments The following attachments cannot be sent through Care Everywhere. * Chest Pain (Welsh) * Atrial Flutter (Welsh) documented in this encounter Medications at Time of Discharge Medication Sig Dispensed Refills Start Date End Date atorvastatin (LIPITOR) 40 mg tabletIndications:hyperl ipidemia Take 1 Tablet by mouth every evening. 90 Tablet 3 09/25/2021 cyanocobalamin, vitamin B-12, 1,000 mcg capsule Take 1,000 mcg by mouth daily. losartan (COZAAR) 25 mg tablet Take 2 Tablets by mouth daily. metFORMIN (GLUCOPHAGE) 1,000 mg tabletIndications:type 2 diabetes mellitus Take 1 Tablet by mouth every morning. metFORMIN (GLUCOPHAGE) 1,000 mg tabletIndications:type 2 diabetes mellitus Take 0.5 Tablets by mouth every evening. nitroglycerin (NITROSTAT) 0.[address] 1 Tablet under the tongue every 5 minutes as needed for Chest Pain. (if needing to take 3rd tablet, call 911) 25 Tablet 5 09/07/2022 Cqgan-6-STD-EPA-Fish Oil (FISH OIL) 1,200 (144-216) mg capsule Take 1,200 mg by mouth daily. 03/25/2022 ONETOUCH ULTRA BLUE TEST STRIP test strips 06/02/2020 ONETOUCH ULTRASOFT LANCETS 06/02/2020 TRULICITY 0.75 mg/0.5 mL subcutaneous penIndications:type 2 diabetes mellitus Inject 0.75 mg into the skin once a week. On Sundays06/12/2020 apixaban (ELIQUIS) 5 mg tabletIndications:Atrial flutter, unspecified type (HCC-CMS) Take 1 Tablet by mouth 2 times daily. 180 Tablet 3 03/28/2023 08/17/2023 TAMSulosin (FLOMAX) 0.4 mg capsule Take 1 Capsule by mouth daily. 30 Capsule 11 09/17/2022 10/04/2023 documented as of this encounter Discharge Disposition Disposition Code Departure Means Destination Comment s Home or Self Detention documented in this encounter ED Notes * Usha Rivera - 07/24/2023 0534 EST 12 Lead EKG Performed by USHA RIVERA and shown to Annelise Taylor DO. * Usha Rivera - 07/24/2023 0245 EST 12 Lead EKG Performed by USHA RIVERA and shown to Annelise Taylor DO. * Usha Rivera - 07/24/2023 0151 EST 12 Lead EKG Performed by USHA RIVERA and shown to DR. Taylor * Annelise Taylor, DO - 07/24/2023 0143 EST Emergency Department Visit Assessment and ED Course Ralph Garnica is a 73 y.o. male with a history of type 2 diabetes, hypertension, hyperlipidemia, NSTEMI (10/2020), and atrial flutter on apixaban who presents to the ED for chest pressure and palpitations which woke him from sleep around 2 hours prior to arrival. EKG shows a wide QRS tachycardia at a rate of 130. Right bundle branch block. Left anterior fascicular block. T wave inversions in V1 through V3. EKG is similar to EKG from 04/18/2023. I suspect atrial flutter with a 2:1 conduction. Will treat with diltiazem. CBC is unremarkable. CMP is unremarkable. Magnesium is normal. Repeat EKG after diltiazem shows atrial flutter with variable AV block at a rate of 65. Right bundle branch block. Left anterior fascicular block. Persistent T wave inversions in V1, V2, and V3. Troponin is normal. Reviewed EKG shows sinus bradycardia with a marked sinus arrhythmia at a rate of 45. Right bundle branch block. Left anterior fascicular block. T wave inversions in V1, V2, V3, and V4. Biphasic T waves in lead I, V5, and V6. EKG is similar to EKG from 05/06/2023. Repeat troponin is mildly elevated at 0.055. On reevaluation patient continues to feel well without any chest pressure or palpitations. Case discussed with Dr. Kilpatrick ([facility] beef ribber) who agrees that the mild elevation in his troponin could be due to demand ischemia. He agrees with plan to repeat a third troponin and as long as his troponin is the same or improved patient can likely be discharged home to follow-up with his beef ribber. If the third troponin is increasing patient will likely need admission. Patient's case signed out to Dr. Cornell at change of shift. Plan is for a repeat troponin. If his third troponin is stable or improving then he can be discharged home. Final diagnoses: Atrial flutter with rapid ventricular response (HCC-CMS) Chest pain, unspecified type Disposition: No disposition on file Chief complaint: chest pressure and palpitations HPI Ralph Garnica is a 73 y.o. male with a history of type 2 diabetes, hypertension, hyperlipidemia, NSTEMI (10/2020), and atrial flutter on apixaban who presents to the ED for chest pressure and palpitations which woke him from sleep around 0030 this morning. Patient reports this feels similar to how he felt when he was admitted to the hospital and ultimately had a cardioversion 3 months ago. No shortness of breath. No recent fevers or illnesses. Patient reports he has been taking his medications including his Eliquis without missing any doses. No nausea or diaphoresis. History was provided by: Patient Patient's pertinent PMH, FH, SH were reviewed and edited as necessary. Physical Exam BP 135/74 Temp 36.4 ??C (97.6 ??F) (Oral) Resp 11 Ht 182.9 cm (72) Wt 99.8 kg (220 lb) SpO2 97% BMI 29.84 kg/m?? A medical screening exam was performed. Physical Exam Vitals and nursing note reviewed. Constitutional: General: He is not in acute distress. Appearance: He is well-developed and well-nourished. HENT: Right Ear: External ear normal. Left Ear: External ear normal. Nose: No nasal discharge. Mouth/Throat: Mouth: Mucous membranes are moist. Eyes: Conjunctiva/sclera: Conjunctivae normal. Cardiovascular: Rate and Rhythm: Regular rhythm. Tachycardia present. Pulses: Intact distal pulses. Pulmonary: Effort: Pulmonary effort is normal. No respiratory distress. Comments: Normal work of breathing, able to speak in full sentences, no audible wheezing, no cough Abdominal: Palpations: Abdomen is soft. Tenderness: There is no abdominal tenderness. Musculoskeletal: General: Normal range of motion. Cervical back: Normal range of motion and neck supple. Skin: General: Skin is warm and dry. Capillary Refill: Capillary refill takes less than 2 seconds. Neurological: General: No focal deficit present. Mental Status: He is alert and oriented to person, place, and time. Psychiatric: Mood and Affect: Mood and affect normal. An EKG was obtained and independently interpreted. EKG shows a wide QRS tachycardia at a rate of 130. Right bundle branch block. Left anterior fascicular block. T wave inversions in V1 through V3. EKG is similar to EKG from 04/18/2023. Laboratory results independently reviewed. Procedures Procedures * Jewel Cornell MD - 07/24/[address] Taylor at change of shift. Repeat troponin returned at 0.072. Again discussed with Dr. Kilpatrick, who agrees that patient is appropriate for discharge. He remains asymptomatic. Discharged home with Dr. Taylor's instructions. documented in this encounter Plan of Treatment Upcoming Encounters Date Type Department Care Team (Late st Contact Info) Description 04/02/2024 11:15 EDT Telemedicine [facility] Urology - [address] [phone] David Bhatt DO [address] [facility], [address] [place] [phone] 07/12/2024 12:30 EST Hospital Encounter [place] [id number] [facility] [address] [place] [phone] Rodrigo Noyola MD [address] [place] [phone] Paroxysmal atrial fibrillation (HCC-CMS) 07/12/2024 12:30 EST - 07/12/2024 17:00 EST Surgery [place] [address] [facility] [address] [place] [address] [phone] Rodrigo Noyola MD [address] [place] [phone] Albcj Woo [[id number] (CPT??)] 07/23/2024 11:[address] [facility] Cardiology Clinic [address] [place] [address] Malini Euceda MD [address] [facility], [facility] 1 [place] [phone] Scheduled Referrals Name Type Priority Associated Diagnoses Orde r Schedule AMB CONS/FOLLOW UP CARDIOLOGY Outpatient Referral Urgent Atrial flutter with rapid ventricular response (HCC-CMS) Expected: 07/26/2023 (Approximate), Expires: 07/24/2024 documented as of this encounter Procedures Procedure Name Priority Date/Time Associated Diagnosis Comments ECG REPORT - SCANNED 08/01/2023 12:17 EST ECG REPORT - SCANNED 07/25/2023 6:13 EST ECG REPORT - SCANNED 07/25/2023 6:13 EST TROPONIN I STAT 07/24/2023 8:14 EST EKG 12-LEAD STAT 07/24/2023 5:32 EST TROPONIN I STAT 07/24/2023 5:16 EST EKG 12-LEAD STAT 07/24/2023 2:43 EST TROPONIN I STAT 07/24/2023 2:08 EST COMPLETE BLOOD COUNT AND DIFFERENTIAL STAT 07/24/2023 2:08 EST MAGNESIUM STAT 07/24/2023 2:07 EST COMPREHENSIVE METABOLIC PANEL (CMP) STAT 07/24/2023 2:07 EST EKG 12-LEAD STAT 07/24/2023 1:48 EST documented in this encounter Results * ECG REPORT - SCANNED (08/01/2023 12:17 EST) 08/01/2023 12:1 7 EST Scan [address] PROCEDURE/MINOR KIERSTEN GICAL ORDERABLES * ECG REPORT - SCANNED (07/25/2023 6:13 EST) 07/25/2023 6:13 EST Scan [address] PROCEDURE/MINOR KIERSTEN GICAL ORDERABLES * ECG REPORT - SCANNED (07/25/2023 6:13 EST) 07/25/2023 6:13 EST Scan [address] PROCEDURE/MINOR KIERSTEN GICAL ORDERABLES * (ABNORMAL) TROPONIN I (07/24/2023 8:14 EST) Troponin I (ng/mL) 0.072(HH) <0.034 ng/mL 07/24/2023 9:16 EST [facility] Blood VENOUS BLOOD / Unknown Venipuncture / Unknown 07/24/2023 8:14 EST 07/24/2023 8:16 EST Narrative [facility] - 07/24/2023 9:16 EST The results of this assay can be falsely lowered due to the consumption of Biotin. Annelise Taylor DO CHEMISTRY & BLOO D GAS ORDERABLES Performing Organization Address City/State/[facility] Co de Phone Number [facility] [address] [place] [address] * EKG 12-LEAD (07/24/2023 5:32 EST) 07/24/2023 5:32 EST Narrative [facility] - 07/24/2023 22:58 EST ? CV ? Test Date: ?2023-07-24 Pat Name: ? RALPH GARNICA ?Department: ? Room: ? A03 Gender: ? Male ? 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 Requested By: STEVEN Angel Order Number: [id number] ? Reading MD: ?? BRINDA KILPATRICK MD ? Measurements Intervals ?[place] ? Rate: ? 45 ? P: ?60 MN: ? 190 ?QRS: ?-47 QRSD: ? 152 ?T: ?86 QT: ? 448 ? QTc: ?387 ? Interpretive Statements Sinus bradycardia with marked sinus arrhythmia Right bundle branch block Left anterior fascicular block Bifascicular block Compared to ECG 07/24/2023 02:43:34 Atrial flutter no longer present Bifascicular block still present I reviewed the tracing and have either agreed or edited the findings in this report. Electronically Signed On 07-24-2023 22:58:27 EST by BRINDA KILPATRICK MD. 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 Electronically Signed On 07-24-2023 22:58:27 EST by HUBERT WETZEL. Annelise Taylor DO CARDIAC ECG [facility] * (ABNORMAL) TROPONIN I (07/24/2023 5:16 EST) Troponin I (ng/mL) 0.055() <0.034 ng/mL 07/24/2023 5:50 EST [facility] Blood VENOUS BLOOD / Unknown Venipuncture / Unknown 07/24/2023 5:16 EST 07/24/2023 5:19 EST Narrative [facility] - 07/24/2023 5:50 EST The results of this assay can be falsely lowered due to the consumption of Biotin. Annelise Taylor DO CHEMISTRY & BLOO D GAS ORDERABLES [facility] [address] [place] [address] * EKG 12-LEAD (07/24/2023 2:43 EST) 07/24/2023 2:43 EST Narrative [facility] - 07/24/2023 22:57 EST ? [facility] ? Test Date: ?2023-07-24 Pat Name: ? RALPH GARNICA ?Department: ? Room: ? A03 Gender: ? Male ? 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 Requested By: STEVEN Angel Order Number: [id number] ? Reading : ?? BRINDA KILPATRICK MD ? Measurements Intervals ?[place] ? Rate: ? 65 ? P: ?265 MN: ? 0 ?QRS: ?-51 QRSD: ? 158 ?T: ?71 QT: ? 430 ? QTc: ?447 ? Interpretive Statements Atrial flutter with variable AV block Right bundle branch block Left anterior fascicular block Bifascicular block Compared to ECG 07/24/2023 01:48 Regular tachycardia no longer present Bifascicular block still present I reviewed the tracing and have either agreed or edited the findings in this report. Electronically Signed On 07-24-2023 22:57:38 EST by BRINDA KILPATRICK MD. 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 Electronically Signed On 07-24-2023 22:57:38 EST by HUBERT WETZEL. Annelise Taylor DO CARDIAC ECG ORDE RABLES Performing Organization Address City/[facility]/ZIP Co de Phone Number [facility] * TROPONIN I (07/24/2023 2:08 EST) [facility] Troponin I (ng/mL) <0.034 <0.034 ng/mL 07/24/2023 2:36 EST [facility] Blood VENOUS BLOOD / Unknown Venipuncture / Unknown 07/24/2023 2:08 EST 07/24/2023 2:09 EST Narrative [facility] - 07/24/2023 2:36 EST The results of this assay can be falsely lowered due to the consumption of Biotin. Annelise Taylor DO CHEMISTRY & BLOO D GAS ORDERABLES [facility] [address] [place] [address] * (ABNORMAL) COMPLETE BLOOD COUNT AND DIFFERENTIAL (07/24/2023 2:08 EST) [facility] WBC 5.75 4.00 - 10.40 K/cmm 07/24/2023 2:11 EST [facility] RBC 5.52 4.36 - 5.78 M/cmm 07/24/2023 2:11 [facility] Hemoglobin 16.6 13.8 - 17.3 g/dL 07/24/2023 2:11 [facility] HCT 49.1 39.5 - 50.2 % 07/24/2023 2:11 [facility] MCV 89 81 - 95 fL 07/24/2023 2:11 [facility] MCH 30.1 27.6 - 33.0 pg 07/24/2023 2:11 [facility] MCHC 33.8 32.8 - 36.4 g/dL 07/24/2023 2:11 [facility] RDW-CV 12.5 <14.2 % 07/24/2023 2:11 [facility] RDW-SD 40.5 <46.0 fl 07/24/2023 2:11 [facility] PLT 219 141 - 377 K/cmm 07/24/2023 2:11 [facility] MPV 9.1(L) 9.5 - 12.7 fL 07/24/2023 2:11 [facility] % Neutrophils 60.5 % 07/24/2023 2:11 [facility] % Lymphocytes 26.6 % 07/24/2023 2:11 [facility] % Monocytes 8.2 % 07/24/2023 2:11 [facility] % Eosinophils 3.8 % 07/24/2023 2:11 [facility] % Basophils 0.7 % 07/24/2023 2:11 [facility] % Immature Grans 0.2 % 07/24/20 2:11 [facility] Absolute Neutrophils 3.48 2.20 - 8.85 K/cmm 07/24/2023 2:11 [facility] Absolute Lymphocytes 1.53 1.09 - 3.30 K/cmm 07/24/2023 2:11 [facility] Absolute Monocytes 0.47 0.10 - 0.80 K/cmm 07/24/2023 2:11 [facility] Absolute Eosinophils 0.22 0.03 - 0.61 K/cmm 07/24/2023 2:11 [facility] ABS Basophils 0.04 0.01 - 0.11 K/cmm 07/24/2023 2:11 [facility] Absolute Immature Grans 0.01 0.00 - 0.06 K/cmm 07/24/2023 2:11 [facility] Type of Differential: Auto 07/24/2023 2:11 [facility] Blood VENOUS BLOOD / Unknown Venipuncture / Unknown 07/24/2023 2:08 EST 07/24/2023 2:09 EST Annelise Taylor DO PACKAGES & DNA P ROBE ORDERABLES Performing Organization Address [facility] Co de Phone Number [facility] [address] [place] [address] * MAGNESIUM (07/24/2023 2:07 EST) Magnesium 1.9 1.7 - 2.8 mg/dL 07/24/2023 2:25 [facility] Blood VENOUS BLOOD / Unknown Venipuncture / Unknown 07/24/2023 2:07 EST 07/24/2023 2:09 EST Annelise Taylor DO CHEMISTRY & BLOO D GAS ORDERABLES Performing Organization Address City/[facility]/ZIP Co de Phone Number [facility] [address] [place] [address] * (ABNORMAL) COMPREHENSIVE METABOLIC PANEL (CMP) (07/24/2023 2:07 EST) Sodium 141 136 - 145 mmol/L 07/24/2023 2:25 [facility] Potassium 4.4 3.5 - 5.0 mmol/L 07/24/2023 2:25 [facility] Chloride 101 96 - 110 mmol/L 07/24/2023 2:25 [facility] CO2 Total 29 22 - 32 mmol/L 07/24/2023 2:25 [facility] Glucose 117(H) 70 - 99 mg/dl 07/24/2023 2:25 [facility] BUN 20 10 - 26 mg/dL 07/24/2023 2:25 [facility] Creatinine 1.22 0.66 - 1.25 mg/dL 07/24/2023 2:25 [facility] eGFR 63 >60 mL/min/1.7 3m2 07/24/2023 2:25 [facility] Total Protein 7.6 6.3 - 8.2 g/dL 07/24/2023 2:25 [facility] Albumin 4.7 3.4 - 4.9 g/dL 07/24/2023 2:25 [facility] Alkaline Phosphatase 122 38 - 126 U/L 07/24/2023 2:25 [facility] AST 30 15 - 46 U/L 07/24/2023 2:25 [facility] ALT 26 <50 U/L 07/24/2023 2:25 [facility] Bilirubin, Total 0.5 <1.4 mg/dL 07/24/20 2:25 [facility] Calcium 9.6 8.5 - 10.5 mg/dL 07/24/2023 2:25 [facility] Albumin/Globulin Ratio 1.6 1.0 - 2.5 g/dL 07/24/2023 2:25 [facility] Anion Gap 11 5 - 14 mmol/L 07/24/2023 2:25 [facility] Blood VENOUS BLOOD / Unknown Venipuncture / Unknown 07/24/2023 2:07 EST 07/24/2023 2:09 EST Annelise Taylor DO CHEMISTRY & BLOO D GAS ORDERABLES [facility] [address] [place] [address] * EKG 12-LEAD (07/24/2023 1:48 EST) 07/24/2023 1:48 EST Narrative [facility] - 08/01/2023 12:06 EST ? [facility] ? Test Date: ?2023-07-24 Pat Name: ? RALPH GARNICA ?Department: ? Room: ? A03 Gender: ? Male ? 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 Requested By: STEVEN Angel Order Number: [id number] ? Reading MD: ?? OZZY TORRES MD ? Measurements Intervals ?[place] ? Rate: ? 130 ?P: ?0 MN: ? 0 ?QRS: ?-68 QRSD: ? 148 ?T: ?85 QT: ? 382 ? QTc: ?562 ? Interpretive Statements Atrial tachycardia Right bundle branch block Left anterior fascicular block Bifascicular block Compared to ECG 05/06/2023 10:51:10 Sinus bradycardia no longer present Bifascicular block still present I reviewed the tracing and have either agreed or edited the findings in this report. Electronically Signed On 08-01-2023 12:06:16 EST by OZZY TORRES MD. 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 Electronically Signed On 08-01-2023 12:06:16 EST by OZZY CHRISTENSEN. Annelise Taylor DO CARDIAC ECG ORDE [facility] documented in this encounter Visit Diagnoses Diagnosis Atrial flutter with rapid ventricular response (HCC-CMS)- Primary Atrial flutter Chest pain, unspecified type Paroxysmal atrial fibrillation (HCC-CMS)- Primary Atrial fibrillation Paroxysmal atrial fibrillation (HCC-CMS) Atrial fibrillation documented in this encounter Administered Medications Inactive Administered Medications - up to 3 most recent administrations Medication Order MAR Action Action Date Dose Rate Site dilTIAZem (CARDIZEM) injection - BOLUS dose 15 mg 15 mg, intravenous, NOW X1, 1 dose, On 07/24/23 at 0300, STAT Given 07/24/2023 2:38 EST 15 mg documented in this encounter Active and Recently Administered Medications Times are shown in EST. Scheduled Medication Order 07/22/2023 07/23/2023 07/24/2023 dilTIAZem (CARDIZEM) injection - BOLUS dose 15 mg (COMPLETED) 15 mg, intravenous, NOW X1, 1 dose, On 07/24/23 at 0300, STAT 0238 (Given - Provid er: Esthela Wilson RN) documented in this encounter Orders Medications Ordered That Quirino ht Not Have Been Administered Count Last Ordered Date First Ordered Date dilTIAZem (CARDIZEM) injecti on - BOLUS dose 15 mg 1 07/24/2023 Nursing Count Last Ordered Date First Orde red Date CALL PHYSICIAN SPECIALTY CONSULT 1 07/24/20 23 documented in this encounter Care Teams Grounds And Nursery Specialist Relationship Specialty Start Date End Date Jessie Velasco [address] [place] [address] PCP - General Internal Medicine - Primary Care 08/26/21 Malini Euceda MD [address] [place] [address]-A [address] [place] [phone] Consulting Clinician Cardiovascular Disease 11/12/21 documented as of this encounter
--- OUTSIDE RECORDS SUMMARY | 2024-03-27 17:25 | XMS_ITS | Encounter Summary ---
Author Organization [facility] Address [address] [place] [address] Care Team Providers Care Tank Terminal Gauger Name Role Phone Jessie Velasco Primary Care Provider [phone] Alida Euceda MD Unavailable [phone] Reason for Visit * Reason Comments Follow-up EKG s/p DCCV * Cardiology (Routine/Next Available) - New Request Specialty Diagnoses / Procedures Referred By [facility] Referred To Contact Diagnoses Paroxysmal atrial fibrillation (HCC-CMS) Procedures EKG 12-LEAD Alida Euceda MD 111 [facility] 1 [place] [address] Referral ID Status Reason Start Date Expiration Date V isits Requested Visits Authorized [id number] New Request 05/04/2023 1 1 Encounter Details Date Type Department Care Team (Late st Contact Info) Description 05/06/2023 10:45 EDT Nurse Only [facility] [address] [place], [place] [id number] Nurse, [facility] Paroxysmal atrial fibrillation (HCC-CMS) (Primary Dx) Social [...] Sign Reading Time Taken Comments Blood Pressure 124/76 05/06/2023 1038 EDT Pulse 78 05/06/2023 1038 EDT Temperature - - Respiratory Rate 16 05/06/2023 1038 EDT Oxygen Saturation 97% 05/06/2023 1038 EDT Inhaled Oxygen Concentration - - Weight 99.8 kg (220 lb) 05/06/2023 1038 EDT Height 182.9 cm (6') 05/06/2023 1038 EDT Body Mass Index 29.84 05/06/2023 1038 EDT documented in this encounter Functional Status Functional [...] as of this encounter Progress Notes * Leandro Wharton LPN - 05/06/2023 1045 EDT Pt in the office today for follow-up EKG s/p DCCV. Pt is AAOx3, with no complaints or s/s. Pt is accompanied by his . Pt has brought his home BP journal and BP cuff. Pt would like to calibrate his home cuff for accuracy. Performed manual BP on R arm and later pt's home BP cuff on L arm. Pt's home cuff is 20 points higher systolic. EKG performed and results reviewed by Dr. Euceda who suggested he get a new home BP monitor and return for follow-up in three months. Pt verbalized understanding of instructions. documented in this encounter Plan of Treatment Upcoming Encounters Date Type Department Care Team (Late st Contact Info) Description 04/02/2024 11:15 EDT Telemedicine [facility] Urology - [address] [phone] David Bhatt DO 111 [facility] 5 [place] [phone] 07/12/2024 12:30 EST Hospital Encounter [place] [address] [facility] [address] [place] [address] [phone] Rodrigo Noyola MD [address] [place] [phone] Paroxysmal atrial fibrillation ([facility]) 07/12/2024 12:30 EST - 07/12/2024 17:00 EST Surgery [place] [address] EP [facility] [address] [place] [address] [phone] Rodrigo Noyola MD [address] [place] [phone] Albation A-Kiara [[id number] (CPT??)] 07/23/2024 11:00 EST Office Visit [facility] [address] [place] [address] Alida Euceda MD 111 [facility] 1 [place] [address] documented as of this encounter Procedures Procedure Name Priority Date/Time Associated Diagnosis Comments EKG 12-LEAD Routine 05/06/2023 10:51 EDT Paroxysmal atrial fibrillation (HCC-CMS) documented in this encounter Results * EKG 12-LEAD (05/06/2023 10:51 EDT) 05/06/2023 10:5 1 EDT [facility] - 05/06/2023 17:49 EDT ? CVC ? Test Date: ?2023-05-06 Pat Name: ? RALPH GARNICA ?Department: ? Room: ? Gender: ? Male ? Attraction Attendant: ?? SC : ?1950 ? Requested By: AMADA Garcia Order Number: [id number] ? Rita WETZEL: ?? ALIDA EUCEDA MD ? Measurements Intervals ?[place] ? Rate: ? 54 ? P: ?49 [place]: ? 184 ?QRS: ?-47 QRSD: ? 142 [...] Name: RALPH GARNICA Department: Room: Gender: Male Attraction Attendant: CHRISTINA : 1950 Requested By: AMADA Garcia Order Number: [id number] Reading MD: ALIDA EUCEDA MD Measurements Intervals [place] Rate: 54 P: 49 [place]: 184 QRS: -47 QRSD: 142 T: 96 [...] Alida Euceda MD CARDIAC ECG ORDERABL ES Performing Organization Address City/State/[facility] Co de Phone Number [facility] documented in this encounter Visit Diagnoses Diagnosis Paroxysmal atrial fibrillation (HCC-CMS)- Primary Atrial fibrillation Paroxysmal atrial fibrillation (HCC-CMS)- Primary Atrial fibrillation Paroxysmal atrial fibrillation (HCC-CMS) Atrial fibrillation documented in this encounter Care Teams Tank Terminal Gauger Relationship Specialty Start Date End Date Jessie Velasco [address] [place] [address] PCP - General Internal Medicine - Primary Care 08/26/21 Alida Euceda MD [address] [place] [address] [address] [place] [phone] Consulting Clinician Cardiovascular Disease 11/12/21 documented as of this encounter
--- OUTSIDE RECORDS SUMMARY | 2024-03-27 17:25 | XMS_ITS | Encounter Summary ---
Author Organization [facility] Address [address] [place] [address] Care Team Providers Care Pattern Repair Person Name Role Phone Jessie Velasco Primary Care Provider [phone] Malini Euceda MD Unavailable [phone] Reason for Visit * Reason Comments Atrial Fibrillation Aortic Stenosis Chest Pressure Follow-up echo Encounter Details Date Type Department Care Team (Late st Contact Info) Description 01/04/2024 11:00 EDT Office Visit [facility] [address] [place], [place] [phone] Malini Euceda MD 111 [facility] 1 [place] [phone] Atrial fibrillation with rapid ventricular response (HCC-CMS) (Primary Dx) Social History Tobacco Use [...] EDT Pulse 86 01/04/2024 1050 EDT Temperature - - Respiratory Rate - - Oxygen Saturation 98% 01/04/2024 1050 EDT Inhaled Oxygen Concentration - - Weight 96.6 kg (213 lb) 01/04/2024 1050 EDT Height 182.9 cm (6' 0.01) 01/04/2024 1050 EDT Body Mass Index 28.88 01/04/2024 1050 EDT documented in this encounter Functional Status [...] as of this encounter Progress Notes * Malini Euceda MD - 01/04/2024 1100 EDT [facility] [place] Subjective: Chief Complaint(s): Atrial Fibrillation , Aortic Stenosis, Chest Pressure, and Follow-up (echo) HPI: 73-year-old man with a history of type 2 diabetes, hypertension, hyperlipidemia with CAD (NSTEMI 08/2021) who presents for routine follow-up. He thinks he had two short lived episodes of atrial fibrillation since our last visit. No other cardiac complaints today. Cardiac History 08-26-2021: Admitted with chest pressure and was found to have a troponin that peaked at 1.2. His left heart catheterization was notable for moderate disease multiple vessels, however no clear culprit. No stents placed. Treated medically. 2022: PET stress test (09/2022) which showed no perfusion defects and normal myocardial blood flow.Two episodes of fibrillation/flutter. One was in which ultimately required an inpatient cardioversion. The second episode was in and spontaneously cardioverted after IV diltiazem. 2023: EP consult. Plan for ablation in Jul 2024. Outpatient Medications Marked as Taking for the 01/04/24 encounter (Office Visit) with Malini Euceda MD Medication Sig apixaban (ELIQUIS) 5 mg tablet Take 1 Tablet by mouth 2 times daily. atorvastatin (LIPITOR) 40 mg tablet Take 1 Tablet by mouth every evening. cyanocobalamin, vitamin B-12, 1,000 mcg capsule Take 1,000 mcg by mouth daily. dilTIAZem (CARDIZEM CD) 120 mg capsule Take 1 Capsule by mouth daily. dilTIAZem (CARDIZEM) 30 mg tablet Take 1 Tablet by mouth 4 times daily as needed for Other (for atrial fibrillaiton > 100 bpm). losartan (COZAAR) 25 mg tablet Take 1 Tablet by mouth daily. magnesium oxide (MAG-OX) 400 mg (241.3 mg magnesium) tablet Take 1 Tablet by mouth daily. metFORMIN (GLUCOPHAGE) 1,000 mg tablet Take 1 Tablet by mouth every morning. metFORMIN (GLUCOPHAGE) 1,000 mg tablet Take 0.5 Tablets by mouth every evening. nitroglycerin (NITROSTAT) 0.[address] 1 Tablet under the tongue every 5 minutes as needed for Chest Pain. (if needing to take 3rd tablet, call 911) Ixkio-1-KKS-EPA-Fish Oil (FISH OIL) 1,200 (144-216) mg capsule Take 1,200 mg by mouth daily. (Patient taking differently: Take 1,200 mg by mouth 2 times daily.) ONETOUCH ULTRA BLUE TEST STRIP test strips ONETOUCH ULTRASOFT LANCETS TAMSulosin (FLOMAX) 0.4 mg capsule Take 1 Capsule by mouth daily. TRULICITY 0.75 mg/0.5 mL subcutaneous pen Inject 0.5 mL into the skin once a week. On Sundays I have reviewed current problem list and current medications. ROS: Review of Systems Cardiovascular: Positive for palpitations. Objective: Examination: Vitals: BP 140/82 (BP Cuff Location: Left arm, BP Patient Position: Sitting, BP Cuff Sizes: Adult, regular) Pulse 86 Ht 182.9 cm (72.01) Wt 96.6 kg (213 lb) SpO2 98% BMI 28.88 kg/m?? Body mass index is 28.88 kg/m??. Physical Exam Constitutional: Appearance: Normal appearance. [...] goal of less than 70. Atrial flutter/fibrillation: Symptomatic, but reasonable burden at the moment. Scheduled for ablation in July 2024. Continue diltiazem 120 mg long-acting with 30 mg every 6 hours as needed for atrial fibrillation with rates greater than 100 bpm. Eliquis. Moderate aortic stenosis: Next TTE in 2 years. Return to clinic in Aug 2024 I spent a total of 30 minutes on the date of this encounter as indicated in the above progress note. Malini Euceda MD documented in this encounter Plan of Treatment Upcoming Encounters Date Type Department Care Team (Late st Contact Info) Description 04/02/2024 11:15 EDT Telemedicine [facility] Urology - [address] [address] David Bhatt, DO 111 [facility], Level 5 [place] [address] 07/12/2024 12:30 EST Hospital Encounter [place] [address] EP Lab [address] [place], [place] [phone] Rodrigo Noyola MD [address] [phone] Paroxysmal atrial fibrillation (HCC-CMS) 07/12/2024 12:30 EST - 07/12/2024 17:00 EST Surgery [place] [address] EP Lab [address] [place], [place] [phone] Rodrigo Noyola MD [address] [place] [phone] Bryce Woo [[id number] (CPT??)] 07/23/2024 11:00 EST Office Visit [facility] Cardiology Clinic [address] [place] [address] Malini Euceda MD [address] [place] [phone] documented as of this encounter Visit Diagnoses Diagnosis Paroxysmal atrial fibrillation (HCC-CMS)- Primary Atrial fibrillation Atrial fibrillation with rapid ventricular response (HCC-CMS)- Primary Atrial fibrillation Paroxysmal atrial fibrillation (HCC-CMS) Atrial fibrillation documented in this encounter Care Teams Pattern Repair Person Relationship Specialty Start Date End Date Jessie Velasco [address] [place], [place] [phone] PCP - General Internal Medicine - Primary Care 08/26/21 Malini Euceda MD [address] [place] [address]A [address] [place] [phone] Consulting Clinician Cardiovascular Disease 11/12/21 documented as of this encounter
--- OUTSIDE RECORDS SUMMARY | 2024-03-27 17:25 | XMS_ITS | Encounter Summary ---
Author Organization Health system Address [address] [place] [address] Care Team Providers Care Hooking Machine Operator Name Role Phone KristaJessie Frank Primary Care Provider [phone] Malini Euceda MD Unavailable [phone] Reason for Referral * Cardiology (Routine/Next Available) - Specialty Report Received Specialty Diagnoses / Procedures Referred By Janie weinstein Referred To Contact Diagnoses Nonrheumatic aortic valve stenosis Procedures TRANSTHORACIC ECHO (TTE) COMPLETE TX ECHO HEART XTHORACIC,COMPLETE W DOPPLER Malini Euceda MD [address] [place] [phone] [facility] Referral ID Status Reason Start Date Expiration Date V isits Requested Visits Authorized [id number] Specialty Report Received 08/05/2023 1 1 Reason for Visit * Cardiology (Routine/Next Available) - Specialty Report Received Specialty Diagnoses / Procedures Referred By Janie weinstein Referred To Contact Diagnoses Nonrheumatic aortic valve stenosis Procedures TRANSTHORACIC ECHO (TTE) COMPLETE TX ECHO HEART XTHORACIC,COMPLETE W DOPPLER Malini Euceda MD [address] [place] [phone] [facility] Referral ID Status Reason Start Date Expiration Date V isits Requested Visits Authorized [id number] Specialty Report Received 08/05/2023 1 1 Encounter Details Date Type Department Care Team (Latest Contact Info) Description 11/29/2023 7:44 EDT - 11/29/2023 23:[address] [facility] Non-Invasive Cardiology [address] [place] [address] Nonrheumatic aortic valve stenosis Discharge Disposition: Home or Self Care Social [...] Sign Reading Time Taken Comments Blood Pressure 133/71 11/29/2023 0817 EDT Pulse - - Temperature - - Respiratory Rate - - Oxygen Saturation - - Inhaled Oxygen Concentration - - Weight - - Height - - Body Mass Index - - documented in this encounter Functional Status Functional [...] CD) 120 mg capsuleIndications:Pa roxysmal atrial fibrillation ([facility]-CMS) Take 1 Capsule by mouth daily. 90 [...] tablet, call 911) 25 Tablet 5 09/07/2022 Rfuqo-1-PIG-EPA-Fish Oil (FISH OIL) 1,200 (144-216) mg capsule [...] Description 04/02/2024 11:15 EDT Telemedicine [facility] Urology - [address] [phone] David Bhatt DO [address] [place] [address] 5 [place] [phone] 07/12/2024 12:30 EST Hospital Encounter [place] [address] EP [address] [place] [address] [phone] Rodrigo Noyola MD [address] [place] [phone] Paroxysmal atrial fibrillation ([facility]) 07/12/2024 12:30 EST - 07/12/2024 17:00 EST Surgery [place] [address] EP Lab [address] [place] [phone] Rodrigo Noyola MD [address] [place] [phone] Elioation Chilo [[id number] (CPT??)] 07/23/2024 11:[address] [facility] Cardiology Clinic [address] [place] [address] Malini Euceda MD [address] [place] [phone] documented as of this encounter Procedures Procedure Name Priority Date/Time Associated Diagnosis Comments TRANSTHORACIC ECHO (TTE) COMPLETE Routine 11/29/2023 8:17 EDT Nonrheumatic aortic valve stenosis documented in this encounter Results * TRANSTHORACIC ECHO (TTE) [...] Images were obtained using cardiac ultrasound machine [id number]. Malini Euceda MD CARDIAC ECHO ORDERAB LES documented in this encounter Visit Diagnoses Diagnosis Paroxysmal atrial fibrillation (HCC-CMS)- Primary Atrial fibrillation Nonrheumatic aortic valve stenosis Aortic valve disorders Paroxysmal atrial fibrillation (HCC-CMS) Atrial fibrillation documented in this encounter Care Teams Hooking Machine Operator Relationship Specialty Start Date End Date Jessie Velasco [address] [place] [address] PCP - General Internal Medicine - Primary Care 08/26/21 Malini Euceda MD [address] [place] [address]A [address] [place] [phone] Consulting Clinician Cardiovascular Disease 11/12/21 documented as of this encounter
--- OUTSIDE RECORDS SUMMARY | 2024-03-27 17:25 | XMS_ITS | Encounter Summary ---
Author Organization [facility] Address [address] [place] [address] Care Team Providers Care Magazine Supervisor Name Role Phone Jessie Velasco Primary Care Provider [phone] Malini Euceda MD Unavailable [phone] Encounter Details Date Type Department Care Team (Late st Contact Info) Description 01/16/2024 15:15 EDT Phlebotomy Only [facility] - Outpatient Phlebotomy Drawing [address] [place] [address] Lab, [facility] Op Phlebotomy Gross hematuria Social History Tobacco Use Types Packs/Day Years [...] Description 04/02/2024 11:15 EDT Telemedicine [facility] Urology - [address] [phone] David Bhatt, 111 [facility] 5 [place] [phone] 07/12/2024 12:30 [facility] Hospital Encounter [place] [address] EP Lab [address] [place] [phone] Rodrigo Noyola MD [address] [place] [address] 1 [place] [phone] Paroxysmal atrial fibrillation (HCC-CMS) 07/12/2024 12:30 EST - 07/12/2024 17:00 EST Surgery [place] [address] EP Lab [address] [place] [phone] Rodrigo Noyola MD [address] [place] [phone] Albation A-Fib [[id number] (CPT??)] 07/23/2024 11:00 EST Office Visit [facility] Cardiology Clinic [address] [place] [address] Malini Euceda MD 111 [facility], Level 1 [place] [phone] documented as of this encounter Procedures Procedure Name Priority Date/Time Associated Diagnosis Comments URINE CHEMICAL (DIP) & SEDIMENT (MICRO) WITHOUT REFLEX TO CULTURE Routine 01/16/2024 15:16 EDT Gross hematuria BACTERIAL CULTURE, URINE Routine 01/16/2024 15:16 EDT Gross hematuria documented in this encounter Results * BACTERIAL CULTURE, URINE (01/16/2024 15:16 EDT) Organism ID No Growth VITEK SUSCEPTIBILITY 01/18/2024 11:15 EDT [facility] Urine URINE SPECIMEN OBTAINED BY CLEAN CATCH PROCEDURE / Unknown Urine Collect / Unknown 01/16/2024 15:16 EDT 01/16/2024 17:12 EDT David Bhatt DO MICROBIOLOGY - [facility] ORDERABLES [facility] [address] [place] [phone] * (ABNORMAL) UA CHEMICAL & SEDIMENT (01/16/2024 15:16 EDT) Color UA Yellow Colorless, Yellow 01/16/2024 17:49 EDT [facility] Clarity UA Cloudy(A) Clear 01/16/2024 17:49 EDT [facility] Glucose UA Negative Negative mg/dL 01/16/2024 17:49 EDT [facility] Bilirubin UA Negative Negative 01/16/2024 17:49 EDT [facility] Ketones UA Negative Negative 01/16/2024 17:49 [facility] Specific [place], Urine 1.020 1.001 - 1.030 01/16/2024 17:49 [facility] Blood UA 3+(A) Negative 01/16/2024 17:49 [facility] Nitrite UA Negative Negative 01/16/2024 17:49 [facility] Leukocyte Esterase UA 1+(A) Negative 01/16/2024 17:49 [facility] Protein UA Trace(A) Negative mg/dL 01/16/2024 17:49 [facility] pH, UA 6.0 <8.5 01/16/2024 17:49 [facility] Urine RBC Count, Manual >50(A) 0 - 2 Cells/HPF 01/16/2024 17:49 [facility] Urine WBC Count >50(A) 0 - 3 Cells/HPF 01/16/2024 17:49 [facility] Urine Squamous Count, Manual None Seen None Seen Cells/HPF 01/16/2024 17:49 [facility] Urine Hyaline Cast Count, Manual <=10 <=10 Casts/LPF 01/16/2024 17:49 [facility] Urine Bacteria Count, Manual Moderate(A) None Seen Bacteria/HP F 01/16/2024 17:49 [facility] Urobilinogen UA 0.2 0.2-1.0 mg/dL mg/dL 01/16/2024 17:49 [facility] Urine URINE SPECIMEN OBTAINED BY CLEAN CATCH PROCEDURE / Unknown Urine Collect / Unknown 01/16/2024 15:16 EDT 01/16/2024 17:12 [facility] - 01/16/2024 17:49 [facility] Urine Sediment Analysis results are unreliable on urines that are unrefrigerated for >2 hrs or refrigerated >8 hrs. David Bhatt DO URINALYSIS ORDERABL ES [facility] [address] [place] [address] documented in this encounter Visit Diagnoses Diagnosis Paroxysmal atrial fibrillation (HCC-CMS)- Primary Atrial fibrillation Gross hematuria Paroxysmal atrial fibrillation (HCC-CMS) Atrial fibrillation documented in this encounter Care Teams Magazine Supervisor Relationship Specialty Start Date End Date Jessie Velasco [address] [place], [place] [address] PCP - General Internal Medicine - Primary Care 08/26/21 Malini Euceda MD 130 [facility]-A [address] [place] [phone] Consulting Clinician Cardiovascular Disease 11/12/21 documented as of this encounter
--- OUTSIDE RECORDS SUMMARY | 2024-03-27 17:25 | XMS_ITS | Encounter Summary ---
Author Organization [facility] Address [address] [place] [address] Care Team Providers Care Medical Territory Manager Name Role Phone Jessie Velasco Primary Care Provider Malini Euceda MD Unavailable [phone] Reason for Visit * Reason Onset Date Comments Medications Refill 08/17/2023 Encounter Details Date Type Department Care Team (Late st Contact Info) Description 08/17/2023 Telephone [facility] Cardiology Clinic [address] [place] [address] Malini Euceda MD [address] [place] [address] [address] [place] [address] Medications Refill Social History Tobacco Use Types [...] Dispensed Refills Start Date End Da te apixaban (ELIQUIS) 5 mg tabletIndications:Atrial flutter, unspecified type (HCC-CMS) Take 1 Tablet by mouth 2 times daily. 180 Tablet 3 08/17/2023 documented in this encounter Miscellaneous Notes * Telephone Encounter - Jessie Leahy - 08/17/2023 1056 EST Ralph Called today to request a refill Medication Name/Dosage: apixaban (ELIQUIS) 5 mg tablet Pharmacy Name: [facility] in [place], [place]. Time Frame Needed: Patient has enough medication for about a week. Soon, Please. Date of Last OV/Med check: 08.05.23 Date of upcoming appointment?: 01.04.24 documented in this encounter Plan of Treatment Upcoming Encounters Date Type Department Care Team (Late st Contact Info) Description 04/02/2024 11:15 EDT Telemedicine [facility] Urology - [address] [phone] David Bhatt DO 111 [facility], [facility] [address] [place] [address] 07/12/2024 12:30 EST Hospital Encounter [place] [address] [facility] [address] [place] [address] [phone] Rodrigo Noyola MD [address] [place] [phone] Paroxysmal atrial fibrillation (HCC-CMS) 07/12/2024 12:30 EST - 07/12/2024 17:00 EST Surgery [place] [address] [address] [place] [address] [phone] Rodrigo Noyola MD [address] [place] [phone] Albcj Woo [[id number] (CPT??)] 07/23/2024 11:00 EST Office Visit [facility] Cardiology Clinic [address] [place] [phone] Malini Euceda MD [address] [place] [phone] documented as of this encounter Visit Diagnoses Diagnosis Atrial flutter, unspecified type (HCC-CMS)- Primary Paroxysmal atrial fibrillation (HCC-CMS)- Primary Atrial fibrillation Paroxysmal atrial fibrillation (HCC-CMS) Atrial fibrillation documented in this encounter Discontinued Medications Medication Sig Discontinue Reason Start Date End Da te apixaban (ELIQUIS) 5 mg tabletIndications:Atrial flutter, unspecified type (HCC-CMS) Take 1 Tablet by mouth 2 times daily. Reorder 03/28/2023 08/17/2023 documented as of this encounter Care Teams Medical Territory Manager Relationship Specialty Start Date End Date Jessie Velasco [address] [place] [address] PCP - General Internal Medicine - Primary Care 08/26/21 Malini Euceda MD [address] [place] [phone] Consulting Clinician Cardiovascular Disease 11/12/21 documented as of this encounter
--- OUTSIDE RECORDS SUMMARY | 2024-03-27 17:25 | XMS_ITS | Encounter Summary ---
Author Organization [facility] Address [address] [place] [address] Care Team Providers Care Finisher Operator Name Role Phone KristaJessie Frank Primary Care Provider [phone] Malini Euceda MD Unavailable [phone] Reason for Visit * Reason Onset Date Comments Appointment Related 02/08/2024 Encounter Details Date Type Department Care Team (Late st Contact Info) Description 02/08/2024 Orders Only [facility] Urology - [address] [address] David Bhatt, DO 111 [facility], [address] [place] [phone] Benign prostatic hyperplasia with urinary retention (Primary Dx) Social History Tobacco Use Types [...] EDT Telemedicine [facility] Urology - [address] [phone] David Bhatt DO 111 [facility], [place] [facility] 5 [place] [phone] 07/12/2024 12:30 EST Hospital Encounter [place] [facility] EP Lab [address] [place], [place] [phone] Rodrigo Noyola MD 111 [facility] [place] [facility] 1 [place] [phone] Paroxysmal atrial fibrillation (HCC-CMS) 07/12/2024 12:30 EST - 07/12/2024 17:00 EST Surgery [place] [facility] EP Lab [address] [place], [place] [phone] Rodrigo Noyola MD [address] [phone] [place] A-Fib [[id number] (CPT??)] 07/23/2024 11:00 EST Office Visit [facility] Cardiology Clinic [address] [place], [place] [phone] Malini Euceda MD [address] [phone] Scheduled Orders Name Type Priority Associated Diagnoses Orde r Schedule POCT URINE CLINITEK (DIPSTICK) - DOES NOT REFLEX Lab Routine Benign prostatic hyperplasia with urinary retention 10 Occurrences starting 02/08/2024 until 02/07/2025, 1 completed documented as of this encounter Visit Diagnoses Diagnosis Paroxysmal atrial fibrillation (HCC-CMS)- Primary Atrial fibrillation Benign prostatic hyperplasia with urinary retention- Primary Paroxysmal atrial fibrillation (HCC-CMS) Atrial fibrillation documented in this encounter Care Teams Finisher Operator Relationship Specialty Start Date End Date Jessie Velasco [address] [place] [phone] PCP - General Internal Medicine - Primary Care 08/26/21 Malini Euceda MD [address] [place] [address]-[address] [place] [phone] Consulting Clinician Cardiovascular Disease 11/12/21 documented as of this encounter
--- OUTSIDE RECORDS SUMMARY | 2024-03-27 17:25 | XMS_ITS | Encounter Summary ---
Author Organization [facility] Address [address] [place] [address] Care Team Providers Care Solution Make Up Operator Name Role Phone MercyrosieJessie Frank Primary Care Provider Malini Euceda MD Unavailable [phone] Reason for Visit * Reason Onset Date Comments Appointment Related 12/22/2023 Encounter Details Date Type Department Care Team (Late st Contact Info) Description 12/22/2023 Telephone [facility] Urology - [address] [address] David Bhatt, DO 111 [facility], [address] [place] [phone] Appointment Related Social History Tobacco Use Types [...] * Telephone Encounter - Celestino Bazan - 12/22/2023 1046 EDT Bumped 1-yr PSA Friday 04/20 @ 11.45 documented in this encounter Plan of Treatment Upcoming Encounters Date Type Department Care Team (Late st Contact Info) Description 04/02/2024 11:15 EDT Telemedicine [facility] Urology - [facility] [address] [place], [place] [phone] David Bhatt, 111 [facility], [address] [place] [phone] 07/12/2024 12:30 EST Hospital Encounter [place] [address] EP Lab [address] [place], [place] [phone] Rodrigo Noyola MD [address] [phone] Paroxysmal atrial fibrillation ([facility]-CMS) 07/12/2024 12:30 EST - 07/12/2024 17:00 EST Surgery [place] [address] EP Lab [address] [place], [place] [phone] Rodrigo Noyola MD [address] [phone] [facility] A-Fib [[id number] (CPT??)] 07/23/2024 11:00 EST Office Visit [facility] Cardiology Clinic [address] [place] [address] Malini Euceda MD [address] [place] [phone] documented as of this encounter Visit Diagnoses Not on filedocumented in this encounter Care Teams Solution Make Up Operator Relationship Specialty Start Date End Date Jessie Velasco [address] [place], [place] [phone] PCP - General Internal Medicine - Primary Care 08/26/21 Malini Euceda MD [address] [place] [address]-[address] [place] [address] Consulting Clinician Cardiovascular Disease 11/12/21 documented as of this encounter
--- OUTSIDE RECORDS SUMMARY | 2024-03-27 17:25 | XMS_ITS | Encounter Summary ---
Author Organization [facility] Address [address] [place] [address] Care Team Providers Care Intelligent Systems Engineer Name Role Phone KristaJessie Frank Primary Care Provider Malini Euceda MD Unavailable [phone] Reason for Visit * Reason Onset Date Comments Medications Refill 10/04/2023 New/Evolving Symptoms 10/04/2023 Encounter Details Date Type Department Care Team (Late st Contact Info) Description 10/04/2023 Telephone [facility] Urology - [address] [phone] David Bhatt, DO 111 [facility], Level [address] [place] [phone] Medications Refill; New/Evolving Symptoms Social History Tobacco Use Types Packs/Day Years [...] daily. 90 Capsule 1 10/04/2023 03/14/2024 documented in this encounter Miscellaneous Notes * Telephone Encounter - Micaela Matos, ANDRE - 10/06/2023 1130 EST Call to pt. Urine culture is negative. Pt the clear discharge has since stopped. Pt denies pain associated with the discharge. Pt will call back if the discharge returns. Pt has increased his fluid intake and the cloudy urine has gone away. * Telephone Encounter - Kimberly San RN - 10/04/2023 1006 EST Call to patient. He reports in the last few days he has clear discharge from his penis like an egg yolk. Drinking extra fluids. Ordered urine tests to [facility]. Staff msg for Thurs. * Telephone Encounter - Barry Rollins - 10/04/2023 0916 EST Medication(s) Requested TAMSulosin (FLOMAX) 0.4 mg capsule Pharmacy Pending Sale To [facility] - [address] Next Visit Date 03/21/2024 Last Visit Date 12/24/2022 Out of Medication? yes Patient advised experiencing Small discharge and cloudy urine. Suspects it may be a UTI would like to to speak with nurse regarding medication options Barry Rollins 10/04/2023 9:16 documented in this encounter Plan of Treatment Upcoming Encounters Date Type Department Care Team (Late st Contact Info) Description 04/02/2024 11:15 EDT Telemedicine [facility] Urology - [address] [phone] David Bhatt DO 111 [facility], Level [address] [place] [phone] 07/12/2024 12:30 EST Hospital Encounter [place] [address] EP [address] [place] [id number] Rodrigo Noyola MD [address] [place] [phone] Paroxysmal atrial fibrillation (HCC-CMS) 07/12/2024 12:30 EST - 07/12/2024 17:00 EST Surgery [place] [address] [place] [phone] Rodrigo Noyola MD [address] [place] [phone] [place] A-Fib [[id number] (CPT??)] 07/23/2024 11:00 EST Office Visit [facility] Cardiology Clinic [address] [place], [place] [address] Malini Euceda MD 111 [facility], [place], [address] [place] [address] documented as of this encounter Results * (ABNORMAL) UA CHEMICAL & SEDIMENT (10/04/2023 12:07 EST) Color UA Yellow Colorless, Yellow 10/04/2023 16:24 [facility] Clarity UA Cloudy(A) Clear 10/04/2023 16:24 [facility] Glucose UA Negative Negative mg/dL 10/04/2023 16:24 [facility] Bilirubin UA Negative Negative 10/04/2023 16:24 [facility] Ketones UA Negative Negative 10/04/2023 16:24 [facility] Specific [place], Urine <=1.005 1.001 - 1.030 10/04/2023 16:24 [facility] Blood UA Trace(A) Negative 10/04/2023 16:24 [facility] Nitrite UA Negative Negative 10/04/2023 16:24 [facility] Leukocyte Esterase UA 3+(A) Negative 10/04/2023 16:24 [facility] Protein UA Negative Negative mg/dL 10/04/2023 16:24 [facility] pH, UA 6.0 <8.5 10/04/2023 16:24 [facility] Urine RBC Count, Manual 0 - 2 0 - 2 Cells/HPF 10/04/2023 16:24 [facility] Urine WBC Count >50(A) 0 - 3 Cells/HPF 10/04/2023 16:24 [facility] Urine Squamous Count, Manual None Seen None Seen Cells/HPF 10/04/2023 16:24 [facility] Urine Hyaline Cast Count, Manual <=10 <=10 Casts/LPF 10/04/2023 16:24 EST [facility] Urine Bacteria Count, Manual Moderate(A) None Seen Bacteria/HP F 10/04/2023 16:24 EST [facility] Urobilinogen UA 0.2 0.2-1.0 mg/dL mg/dL 10/04/2023 16:24 EST [facility] Urine URINE SPECIMEN OBTAINED BY CLEAN CATCH PROCEDURE / Unknown Urine Collect / Unknown 10/04/2023 12:07 EST 10/04/2023 15:52 EST Narrative [facility] - 10/04/2023 16:24 EST Urine Sediment Analysis results are unreliable on urines that are unrefrigerated for >2 hrs or refrigerated >8 hrs. David Bhatt DO URINALYSIS ORDERABL ES Performing Organization Address [facility] [place] [address] * BACTERIAL CULTURE, URINE (10/04/2023 12:07 EST) Organism ID No Growth VITEK SUSCEPTIBILITY 10/06/2023 10:57 EST [facility] Urine URINE SPECIMEN OBTAINED BY CLEAN CATCH PROCEDURE / Unknown Urine Collect / Unknown 10/04/2023 12:07 EST 10/04/2023 15:52 EST David Bhatt DO MICROBIOLOGY - GENE RAL ORDERABLES Performing Organization Address City/[facility]/ZIP Co de Phone Number [facility] [address] [place] [address] documented in this encounter Visit Diagnoses Diagnosis Penile discharge- Primary Urethral discharge Paroxysmal atrial fibrillation (HCC-CMS)- Primary Atrial fibrillation Paroxysmal atrial fibrillation (HCC-CMS) Atrial fibrillation documented in this encounter Discontinued Medications Medication Sig Discontinue Reason Start Date End Da te TAMSulosin (FLOMAX) 0.4 mg capsule Take 1 Capsule by mouth daily. Reorder 09/17/2022 10/04/2023 documented as of this encounter Care Teams Intelligent Systems Engineer Relationship Specialty Start Date End Date Jessie Velasco [address] [place] [address] PCP - General Internal Medicine - Primary Care 08/26/21 Malini Euceda MD [address] [place] [phone] Consulting Clinician Cardiovascular Disease 11/12/21 documented as of this encounter
--- OUTSIDE RECORDS SUMMARY | 2024-03-27 17:25 | XMS_ITS | Encounter Summary ---
Author Organization [facility] Address [address] [place] [address] Care Team Providers Care Boil Off Worker Name Role Phone Jessie Velasco Primary Care Provider [phone] Malini Euceda MD Unavailable [phone] Encounter Details Date Type Department Care Team (Latest Contact Info) Description 07/24/2023 Travel Social History Tobacco Use Types Packs/Day Years [...] Info) Description 04/02/2024 11:15 EDT Telemedicine [facility] Urology - [address] [phone] David Bhatt, 111 [facility] 5 [place] [phone] 07/12/2024 12:30 EST Hospital Encounter [place] [address] EP Lab [address] [place] [phone] Rodrigo Noyola MD [address] [place] [phone] Paroxysmal atrial fibrillation ([facility]-CMS) 07/12/2024 12:30 EST - 07/12/2024 17:00 EST Surgery [place] 1 EP Lab [address] [place], [place] [phone] Rodrigo Noyola MD [address] [place] [phone] [place] A-Kiara [[id number] (CPT??)] 07/23/2024 11:00 EST Office Visit [facility] Cardiology Clinic [address] [place] [address] [place] [address] Malini Euceda MD 111 [facility], [place], [address] [place] [phone] documented as of this encounter Visit Diagnoses Not on filedocumented in this encounter Care Teams Boil Off Worker Relationship Specialty Start Date End Date Jessie Velasco [address] [place] [phone] PCP - General Internal Medicine - Primary Care 08/26/21 Malini Euceda MD 130 [facility]-[address] [place] [phone] Consulting Clinician Cardiovascular Disease 11/12/21 documented as of this encounter
--- OUTSIDE RECORDS SUMMARY | 2024-03-27 17:25 | XMS_ITS | Encounter Summary ---
Author Organization [facility] Address [address] [place] [address] Care Team Providers Care Cafeteria Or Lunchroom Checker Name Role Phone Jessie Velasco Primary Care Provider [phone] Malini Euceda MD Unavailable [phone] Reason for Referral * Cardiology (Routine) - Authorization Not Required Specialty Diagnoses / Procedures Referred By Contac t Referred To Contact Diagnoses Paroxysmal atrial fibrillation (HCC-CMS) Procedures TRANSESOPHAGEAL ECHO (BARRETT) Rodrigo Noyola MD [address] [place] [phone] [facility] Referral ID Status Reason Start Date Expiration Date Visits Requested Visits Authorized [id number] Authorization Not Required 10/28/2023 1 1 * Radiology Services (Routine) - Authorization Not Required Specialty Diagnoses / Procedures Referred By Contac t Referred To Contact Diagnoses Paroxysmal atrial fibrillation (HCC-CMS) Procedures CT CARDIAC PULMONARY VEIN Rodrigo Noyola MD [address] [place] [phone] [facility] Referral ID Status Reason Start Date Expiration Date Visits Requested Visits Authorized [id number] Authorization Not Required 10/28/2023 1 1 * Cardiology (Routine) - New Request Specialty Diagnoses / Procedures Referred By Janie weinstein Referred To Contact Diagnoses Paroxysmal atrial fibrillation (HCC-CMS) Procedures INTRACARDIAC ECHOCARDIOGRAM (ICE) Rodrigo Noyola MD [address] [place] [phone] Referral ID Status Reason Start Date Expiration Date V isits Requested Visits Authorized [id number] New Request 10/28/2023 1 1 Reason for Visit * Reason Comments Atrial Fibrillation * Consult (Routine/Next Available) - Specialty Report Received Specialty Diagnoses / Procedures Referred By Janie weinstein Referred To Contact Cardiology Diagnoses Paroxysmal atrial fibrillation (HCC-CMS) Malini Euceda MD [address] [place] [phone] [facility] Cardiology [address] [facility] [place] [address] Referral ID Status Reason Start Date Expiration Date Visits Requested Visits Authorized [id number] Specialty Report Received Specialty Services Required 08/05/2023 1 1 Encounter Details Date Type Department Care Team (Late st Contact Info) Description 10/28/2023 13:30 EST Office Visit [facility] Cardiology - [address] [place] [address] Rodrigo Noyola MD [address] [place] [phone] Paroxysmal atrial fibrillation (HCC-CMS) (Primary Dx) Social [...] Sign Reading Time Taken Comments Blood Pressure 160/68 10/28/2023 1326 EST Pulse 58 10/28/2023 1326 EST Temperature - - Respiratory Rate - - Oxygen Saturation 99% 10/28/2023 1326 EST Inhaled Oxygen Concentration - - Weight 104.3 kg (230 lb) 10/28/2023 1326 EST Height - - Body Mass Index 31.19 08/05/2023 1606 EST documented in this encounter [...] as of this encounter Progress Notes * Rodrigo Noyola MD - 10/28/2023 1330 EST Subjective: Patient ID: Ralph Garnica is an 73 y.o. male. Chief Complaint Patient presents with Atrial Fibrillation HPI 73-year-old man with a history of type 2 diabetes, hypertension, hyperlipidemia with CAD (NSTEMI 08/2021) and AF. Patient of Dr Euceda. Here with increasing episodes and recent DCCV. Discussion recently regarding AAD versus RFA. Symptoms include palpitations and rapid heart rates. Patient Active Problem List Diagnosis Hyperlipidemia DM (diabetes mellitus), secondary (HCC-CMS) ([facility]) HTN (hypertension) BBB (bundle branch block) Benign prostatic hyperplasia with urinary retention ST elevation myocardial infarction (STEMI) ([facility]) Coronary artery disease involving chilkat coronary artery of chilkat heart without angina pectoris Nonrheumatic aortic valve stenosis Atrial fibrillation with rapid ventricular response (HCC-CMS) Atrial fibrillation with RVR ([facility]) Elevated troponin Acute renal insufficiency Past Medical History: Diagnosis Date BPH (benign prostatic hyperplasia) Diabetes mellitus ([facility]) Hyperlipidemia Hypertension Past Surgical History: Procedure Laterality Date ELECTRICAL CARDIOVERSION 04/20/2023 No family history on file. Social Social History Tobacco Use Smoking status: Never Smokeless tobacco: Never Vaping Use Vaping Use: Never used Substance Use Topics Alcohol use: Yes Comment: 1-2 beers on the weekend Drug use: Never Current Outpatient Medications on File Prior to Visit Medication Sig Dispense Refill apixaban (ELIQUIS) 5 mg tablet Take 1 Tablet by mouth 2 times daily. 180 Tablet 3 atorvastatin (LIPITOR) 40 mg tablet Take 1 Tablet by mouth every evening. 90 Tablet 3 cyanocobalamin, vitamin B-12, 1,000 mcg capsule Take 1,000 mcg by mouth daily. dilTIAZem (CARDIZEM CD) 120 mg capsule Take 1 Capsule by mouth daily. 90 Capsule 3 dilTIAZem (CARDIZEM) 30 mg tablet Take 1 Tablet by mouth 4 times daily as needed for Other (for atrial fibrillaiton > 100 bpm). 30 Tablet 3 losartan (COZAAR) 25 mg tablet Take 1 [...] 3rd tablet, call 911) 25 Tablet 5 Vbdma-3-RSE-EPA-Fish Oil (FISH OIL) 1,200 (144-216) mg capsule Take 1,200 mg by mouth daily. (Patient taking differently: Take 1,200 mg by mouth 2 times daily.) ONETOUCH ULTRA BLUE TEST STRIP test strips TEST TWICE DAILY (Patient not taking: Reported on 10/28/2023) ONETOUCH ULTRASOFT LANCETS TEST TWICE DAILY (Patient not taking: Reported on 10/28/2023) TAMSulosin (FLOMAX) 0.4 mg capsule Take 1 Capsule by mouth daily. 90 Capsule 1 TRULICITY 0.75 mg/0.5 mL subcutaneous pen Inject 0.5 mL into the skin once a week. On Sundays No current facility-administered medications on file prior to visit. No Known Allergies Review of Systems Constitutional: Positive for malaise/fatigue. HENT: Negative. Eyes: Negative. Respiratory: Negative. Cardiovascular: Positive for palpitations. Gastrointestinal: Negative. Musculoskeletal: Negative. Skin: Negative. Neurological: Negative. Endo/Heme/Allergies: Negative. - See HPI Objective: BP (!) 160/68 (BP Cuff Location: Right arm, BP Patient Position: Sitting, BP Cuff Sizes: Adult, regular) Pulse 58 Wt (!) 104.3 kg (230 lb) SpO2 99% BMI 31.19 kg/m?? Physical Exam Constitutional: Appearance: He is well-nourished. HENT: Mouth/Throat: Mouth: Mucous membranes are moist. Eyes: Extraocular Movements: EOM normal. Cardiovascular: Rate and Rhythm: Normal rate. Pulmonary: Effort: Pulmonary effort is normal. Abdominal: Palpations: Abdomen is soft. Musculoskeletal: General: Normal range of motion. Cervical back: Normal range of motion. Skin: General: Skin is warm. Neurological: Mental Status: He is alert. Assessment: Symptomatic AF. On AC and rate control, and has required DCCV. We discussed AF RFA versus AAD and will proceed with an ablation. If symptoms worsen we will use tikosyn as a bridging therapy. Plan: (I48.0) Paroxysmal atrial fibrillation ([facility]) (primary encounter diagnosis) Rodrigo Noyola MD No orders of the defined types were placed in this encounter. documented in this encounter Plan of Treatment Upcoming Encounters Date Type Department Care Team (Late st Contact Info) Description 04/02/2024 11:15 EDT Telemedicine [facility] Urology - [address] [phone] David Bhatt DO 111 [facility], Level [address] [place] [phone] 07/12/2024 12:30 EST Hospital Encounter [place] [address] [facility] [address] [place] [id number] Rodrigo Noyola MD [address] [place] [phone] Paroxysmal atrial fibrillation (HCC-CMS) 07/12/2024 12:30 EST - 07/12/2024 17:00 EST Surgery [place] [address] [address] [place] [id number] Rodrigo Noyola MD [address] [place] [phone] Albation Chilo [[id number] (CPT??)] 07/23/2024 11:00 EST Office Visit [facility] Cardiology Clinic [address] [place] [address] Malini Euceda MD [address] [place] [phone] Scheduled Orders Name Type Priority Associated Diagnoses Orde r Schedule INTRACARDIAC ECHOCARDIOGRAM (ICE) Echocardiography Routine Paroxysmal atrial fibrillation (HCC-CMS) Expected: 10/28/2023, Expires: 10/28/2025 TRANSESOPHAGEAL ECHO (BARRETT) Echocardiography Routine Paroxysmal atrial fibrillation (HCC-CMS) Expected: 10/28/2023, Expires: 10/28/2025 documented as of this encounter Results * CT CARDIAC PULMONARY [...] present. There are no suspicious pulmonary nodules. [id number] Resulting Agency Comment [id number] Procedure Note Cassandra Bach MD - 01/26/2024 CT CARDIAC PULMONARY VEIN 01/26/2024 10:32 AM Clinical History/Comments: AF;I48.0:Paroxysmal atrial fibrillation (HCC-CMS) Technique: CTA of the heart was performed with ECG-gating and with the intravenousadministration of contrast material. Images were reconstructed at ocw53-48-58-46% phases of the cardiac cycle. 3D advanced [...] is present.There are no suspicious pulmonary nodules. [id number] Rodrigo Noyola MD IMG CT ORDERABLE S documented in this encounter Visit Diagnoses Diagnosis Paroxysmal atrial fibrillation (HCC-CMS)- Primary Atrial fibrillation Paroxysmal atrial fibrillation (HCC-CMS)- Primary Atrial fibrillation Paroxysmal atrial fibrillation (HCC-CMS) Atrial fibrillation Paroxysmal atrial fibrillation (HCC-CMS) Atrial fibrillation documented in this encounter Orders Case Request Count Last Ordered Date First Orde red Date CASE REQUEST EP LAB 1 10/28/2023 documented in this encounter Care Teams Cafeteria Or Lunchroom Checker Relationship Specialty Start Date End Date Jessie Velasco [address] [place] [phone] PCP - General Internal Medicine - Primary Care 08/26/21 Malini Euceda MD [address] [place] [address]- [address] [place] [phone] Consulting Clinician Cardiovascular Disease 11/12/21 documented as of this encounter
--- OUTSIDE RECORDS SUMMARY | 2024-03-27 17:26 | XMS_ITS | Encounter Summary ---
Author Organization [facility] Address [address] [place] [address] Care Team Providers Care Concreter Name Role Phone KristaJessie Frank Primary Care Provider [phone] Malini Euceda MD Unavailable [phone] Encounter Details Date Type Department Care Team (Late st Contact Info) Description 09/10/2022 Orders Only [facility] Radiology - Main [place] [address] [place] [address] Sameer Gilmore MD [address] [place] [phone] Social History Tobacco Use Types Packs/Day Years [...] you have serious difficulty h earing? No 08/26/2021 Are you blind or do you have serious difficulty seeing, even when wearing glasses? No 08/26/2021 Do you have serious difficul ty walking or climbing stairs? (5 years old or older) No 08/26/2021 Do you have difficulty dress ing or bathing? (5 years old or older) No 08/26/2021 Because of a physical, menta l, or emotional condition, does this person have difficulty doing errands alone such as visiting a doctor's office or shopping? No 09/16/2021 Cognitive Status Response Date of Assessm ent Because of a physical, menta l, or emotional condition, does this person have serious difficulty concentrating, remembering, or making decisions? No 09/16/2021 documented as of this encounter Plan of Treatment Upcoming Encounters Date Type Department Care Team (Late st Contact Info) Description 04/02/2024 11:15 EDT Telemedicine [facility] Urology - [address] [phone] David Bhatt, 111 [facility] 5 [place] [phone] 07/12/2024 12:30 EST Hospital Encounter [place] [address] [place] [id number] Rodrigo Noyola MD [address] [place] [phone] Paroxysmal atrial fibrillation ([facility]) 07/12/2024 12:30 EST - 07/12/2024 17:00 EST Surgery [place] [address] [place] [address] [id number] Rodrigo Noyola MD [address] [place] [phone] Bryce Woo [[id number] (CPT??)] 07/23/2024 11:00 EST Office Visit [facility] Cardiology Clinic [address] [place], [place] [phone] Malini Euceda MD 111 [facility], Level [address] [place] [address] documented as of this encounter Visit Diagnoses Not on filedocumented in this encounter Care Teams Concreter Relationship Specialty Start Date End Date Jessie Velasco [address] [place], [place] [phone] PCP - General Internal Medicine - Primary Care 08/26/21 Malini Euceda MD [address] [place] [address] [facility] [address] [place] [phone] Consulting Clinician Cardiovascular Disease 11/12/21 documented as of this encounter
--- OUTSIDE RECORDS SUMMARY | 2024-03-27 17:26 | XMS_ITS | Encounter Summary ---
Author Organization [facility] Address [address] [place] [address] Care Team Providers Care Core Inserter Name Role Phone KristaJessie Frank Primary Care Provider Malini Euceda MD Unavailable [phone] Reason for Visit * Reason Onset Date Comments Hematuria 06/16/2022 Encounter Details Date Type Department Care Team (Late st Contact Info) Description 06/16/2022 Telephone [facility] Urology - [address] [address] David Bhatt, DO 111 [facility], Level [address] [place] [phone] Hematuria Social History Tobacco Use Types Packs/Day [...] No 09/16/2021 documented as of this encounter Ordered Prescriptions Prescription Sig Dispensed Refills Start Date End Da te finasteride (PROSCAR) 5 mg tablet Take 1 Tablet by mouth daily for 30 days. 30 Tablet 1 06/16/2022 07/16/2022 documented in this encounter Miscellaneous Notes * Telephone Encounter - Rebecca Mayorga RN - 06/16/2022 1313 EDT Images from the original note were not included. David Bhatt, DO P Urology Nurse I did not realize he is still bleeding. 1) Rx finasteride 5 mg/day AND 2) see me 0ne month after starting finsteride with office exam/UA/Blad scan please Sent in finasteride and notified patient to start med. Rxed to pharm in [place] while he is visiting son. Will task scheduling to see Dr. Bhatt in a month. * Telephone Encounter - Rebecca Mayorga RN - 06/16/2022 1212 EDT Patient in [place] visiting son until next Tuesday. Had 30 hours of passing a lot of blood and brown urine. Today urine stream starts clear that reddish brown. Drinking lots of water. Denies blood clots. He has noticed improvement with odor since starting abx. On clopidogrel. Encouraged pushing fluids. Patient instructed to go to the ED to be evaluated if pt develops purple urine, passes greater than 10 blood clots or pt is having difficulty urinating. Will ask Dr. Bhatt what next step is. * Telephone Encounter - Johanna Wong - 06/16/2022 1113 EDT Patient calling about passing blood in his urine. Concerned about the volume of blood he is passing Please call back to advise documented in this encounter Plan of Treatment Upcoming Encounters Date Type Department Care Team (Late st Contact Info) Description 04/02/2024 11:15 EDT Telemedicine [facility] Urology - [address] [phone] David Bhatt DO 111 [facility] 5 [place] [phone] 07/12/2024 12:30 EST Hospital Encounter [place] [address] [address] Lab [address] [place] [id number] Rodrigo Noyola MD [address] [place] [phone] Paroxysmal atrial fibrillation ([facility]) 07/12/2024 12:30 EST - 07/12/2024 17:00 EST Surgery [place] [address] EP Lab [address] [place] [id number] Rodrigo Noyola MD [address] [place] [phone] Bryce Woo [[id number] (CPT??)] 07/23/2024 11:00 EST Office Visit [facility] Cardiology Clinic [address] [place], [place] [phone] Malini Euceda MD 111 [facility] 1 [place] [phone] documented as of this encounter Visit Diagnoses Not on filedocumented in this encounter Care Teams Core Inserter Relationship Specialty Start Date End Date Jessie Velasco [address] [place] [address] [phone] PCP - General Internal Medicine - Primary Care 08/26/21 Malini Euceda MD [address] [place] [address] [facility] [address] [place] [phone] Consulting Clinician Cardiovascular Disease 11/12/21 documented as of this encounter
--- OUTSIDE RECORDS SUMMARY | 2024-03-27 17:26 | XMS_ITS | Encounter Summary ---
Author Organization [facility] Address [address] [place] [address] Care Team Providers Care Process Design Chemical Engineer Name Role Phone Jessie Velasco Primary Care Provider [phone] Malini Euceda MD Unavailable [phone] Reason for Visit * Cardiology (Routine/Next Available) - Specialty Report Received Specialty Diagnoses / Procedures Referred By Contac t Referred To Contact Nuclear Medicine Diagnoses Chest pressure Procedures NM CARD PET NUCLEAR STRESS Malini Euceda MD [address] [place] [address] [address] [place] [address] [facility] Referral ID Status Reason Start Date Expiration Date V isits Requested Visits Authorized [id number] Specialty Report Received 09/08/2022 1 1 Encounter Details Date Type Department Care Team (Latest Contact Info) Description 09/28/2022 6:35 EST - 09/28/2022 23:59 EST Hospital Encounter [facility] Non-Invasive Cardiology - [address] [phone] Discharge Disposition: Home or Self Care Social [...] No 09/16/2021 documented as of this encounter Medications at Time of Discharge Medication Sig Dispensed Refills Start Date End Date atorvastatin (LIPITOR) 40 mg tabletIndications:hyperl ipidemia Take 1 Tablet by mouth every evening. 90 Tablet 3 09/25/2021 metFORMIN (GLUCOPHAGE) 1,000 mg tabletIndications:type 2 diabetes mellitus Take 1 Tablet by mouth every morning. metFORMIN (GLUCOPHAGE) 1,000 mg tabletIndications:type 2 diabetes mellitus Take 0.5 Tablets by mouth every evening. nitroglycerin (NITROSTAT) 0.[address] 1 Tablet under the tongue every 5 minutes as needed for Chest Pain. (if needing to take 3rd tablet, call 911) 25 Tablet 5 09/07/2022 Alfyj-4-WOO-EPA-Fish Oil (FISH OIL) 1,200 (144-216) mg capsule [...] mouth 2 times daily. 180 Tablet 3 03/25/2022 03/28/2023 clopidogreL (PLAVIX) 75 mg tabletIndications:Non-ST elevation myocardial infarction (NSTEMI) ([facility]) Take 1 Tablet by mouth daily. 90 Tablet 3 02/10/2022 04/21/2023 TAMSulosin (FLOMAX) 0.4 mg capsule Take 1 Capsule by mouth daily. 30 Capsule 11 09/17/2022 10/04/2023 documented as of this encounter Discharge Disposition Disposition Code Departure Means Destination Home or Self Care documented in this encounter Plan of Treatment Upcoming Encounters Date Type Department Care Team (Late st Contact Info) Description 04/02/2024 11:15 EDT Telemedicine [facility] Urology - [address] [phone] David Bhatt DO [address] [facility] 5 [place] [phone] 07/12/2024 12:30 EST Hospital Encounter [place] [facility] EP Lab [address] [place], [place] 6[address] Rodrigo Noyola MD [address] [place] [phone] Paroxysmal atrial fibrillation (HCC-CMS) 07/12/2024 12:30 EST - 07/12/2024 17:00 EST Surgery [place] 1 EP Lab [address] [place], [place] 149771 Rodrigo Noyola MD [address] [place], [place] [address], [place] [address] Bryce Woo [[id number] (CPT??)] 07/23/2024 11:00 EST Office Visit [facility] Cardiology Clinic [address] [place] [address] Malini Euceda MD 111 [facility] 1 [place] [phone] documented as of this encounter Procedures Procedure Name Priority Date/Time Associated Diagnosis Comments NM CARD PET PHARM MULT STUDIES COMPLETE W/AQMBF SOLA 09/28/2022 9:09 EST Chest pressure documented in this encounter Visit Diagnoses Not on filedocumented in this encounter Administered Medications Inactive Administered Medications - up to 3 most recent administrations Medication Order MAR Action Action Date Dose Rate Site regadenoson (LEXISCAN) injection syringe 0.4 mg 0.4 mg, intravenous, NOW X1, 1 dose, On Tue09/28/22 at 0815, Routine Given 09/28/2022 8:27 EST 0.4 mg documented in this encounter Orders Medications Ordered That Quirino ht Not Have Been Administered Count Last Ordered Date First Ordered Date regadenoson (LEXISCAN) injec tion syringe 0.4 mg 1 09/28/2022 documented in this encounter Care Teams Process Design Chemical Engineer Relationship Specialty Start Date End Date Jessie Velasco [address] [place] [address] [phone] PCP - General Internal Medicine - Primary Care 08/26/21 Malini Euceda MD 130 [facility] [address] [place] [phone] Consulting Clinician Cardiovascular Disease 11/12/21 documented as of this encounter
--- OUTSIDE RECORDS SUMMARY | 2024-03-27 17:26 | XMS_ITS | Encounter Summary ---
Author Organization [facility] Address [address] [place] [address] Care Team Providers Care Architectural Design Professor Name Role Phone Jessie Velasco Frank Primary Care Provider Malini Euceda MD Unavailable [phone] Reason for Visit * Reason Onset Date Comments Appointment Related 08/16/2022 Encounter Details Date Type Department Care Team (Late st Contact Info) Description 08/16/2022 Telephone [facility] Urology - [address] [address] David Bhatt, DO 111 [facility], [address] [place] [phone] Appointment Related Social History Tobacco Use Types [...] No 09/16/2021 documented as of this encounter Miscellaneous Notes * Telephone Encounter - Eric Palafox MA - 09/08/2022 1405 EST Spoke with patient, ?? There is a cancellation on September 17 at 13:00, patient would like the spot. ERIC PALAFOX MA 09/08/2022 14:05 * Telephone Encounter - Liat Posadas - 08/16/2022 0822 EST I spoke to Pt and he confirmed both date and time of appt documented in this encounter Plan of Treatment Upcoming Encounters Date Type Department Care Team (Late st Contact Info) Description 04/02/2024 11:15 EDT Telemedicine [facility] Urology - [address] [phone] David Bhatt, DO 111 [facility], [address] [place] [phone] 07/12/2024 12:30 EST Hospital Encounter [place] [address] EP Lab [address] [place], [place] [address] Rodrigo Noyola MD [address] [place] [phone] Paroxysmal atrial fibrillation ([facility]) 07/12/2024 12:30 EST - 07/12/2024 17:00 EST Surgery [place] [address] EP Lab [address] [place], [place] [phone] Rodrigo Noyola MD [address] [place] [phone] Albation A-Fib [[id number] (CPT??)] 07/23/2024 11:00 EST Office Visit [facility] Cardiology Clinic [address] [place] [address] Malini Euceda MD [address] [place] [phone] documented as of this encounter Visit Diagnoses Not on filedocumented in this encounter Care Teams Architectural Design Professor Relationship Specialty Start Date End Date Jessie Velasco [address] [place] [phone] PCP - General Internal Medicine - Primary Care 08/26/21 Malini Euceda MD 130 [facility]- [address] [phone] Consulting Clinician Cardiovascular Disease 11/12/21 documented as of this encounter
--- OUTSIDE RECORDS SUMMARY | 2024-03-27 17:26 | XMS_ITS | Encounter Summary ---
Author Organization [facility] Address [address] [place] [address] Care Team Providers Care Qa Tester Name Role Phone KristaAndreiJessie R Primary Care Provider [phone] Malini Euceda MD Unavailable Reason for Visit * Reason Onset Date Comments Appointment Related 09/24/2022 Encounter Details Date Type Department Care Team (Late st Contact Info) Description 09/24/2022 Telephone [facility] Cardiology - [address] [place] [phone] Kaushik Kellogg, RN [address] [place] [address] Appointment Related Social History Tobacco Use Types [...] encounter Miscellaneous Notes * Telephone Encounter - Kaushik Kellogg RN - 09/24/2022 1012 EST I text or spoke with patient and gave instructions for NM PET. Reminded patient to abstain from caffeine for 12 hours, NPO 4 hours except water, wear comfortable clothing, do not apply any lotions orcreams to the chest and abdomen areas. Patient aware of campus, date and time. documented in this encounter Plan of Treatment Upcoming Encounters Date Type Department Care Team (Late st Contact Info) Description 04/02/2024 11:15 EDT Telemedicine [facility] Urology - [facility] [address] [place], [place] [address] David Bhatt, 111 [facility], Level [address] [place] [phone] 07/12/2024 12:30 EST Hospital Encounter [place] [address] EP Lab [address] [place], [place] [phone] Rodrigo Noyola MD 111 [facility] Level 1 [place] [address] Paroxysmal atrial fibrillation ([facility]) 07/12/2024 12:30 EST - 07/12/2024 17:00 EST Surgery [place] [address] EP Lab [address] [place], [place] [phone] Rodrigo Noyola MD [address] [phone] Albation A-Fib [[id number] (CPT??)] 07/23/2024 11:00 EST Office Visit [facility] Cardiology Clinic [address] [place] [address] Malini Euceda MD [address] [place] [phone] documented as of this encounter Visit Diagnoses Not on filedocumented in this encounter Care Teams Qa Tester Relationship Specialty Start Date End Date Jessie Velasco [address] [place] [phone] PCP - General Internal Medicine - Primary Care 08/26/21 Malini Euceda MD [address] [place] [address]-A [address] [place] [phone] Consulting Clinician Cardiovascular Disease 11/12/21 documented as of this encounter
--- OUTSIDE RECORDS SUMMARY | 2024-03-27 17:26 | XMS_ITS | Encounter Summary ---
Author Organization [facility] Address [address] [place] [address] Care Team Providers Care Varnish Finisher Name Role Phone Krista Jessie Frank Primary Care Provider Malini Euceda MD Unavailable [phone] Reason for Visit * Auth/Cert (Routine) Specialty Diagnoses / Procedures Referred By [facility] Referred To Contact Diagnoses Acute renal insufficiency Elevated troponin Atrial fibrillation with rapid ventricular response ([facility]) Atrial fibrillation with RVR ([facility]) Referral ID Status Reason Start Date Expiration Date Visits Re quested Visits Authorized [id number] 04/18/2023 04/21/2023 1 1 Encounter Details Date Type Department Care Team (Late st Contact Info) Description 04/20/2023 9:46 EDT Anesthesia Event [facility] Cardiology [address] [place], [place] [address] Zenon Wade MD [address] [place] [phone] Anesthesia Record Procedure Summary Procedure Name Responsible Anesthesiologist Anesthesia Start Time Anesthesia Stop Time CARDIOVERSION Zenon Wade MD 04/20/23 0946 04/20/23 0951 Events Date Time Event Comment 04/20/2023 0946 An Start The patient was re-evaluated immediately before moderate or deep sedation use, before anesthesia induction, or before the anesthesia procedure. 0946 An Start Data 0946 Anesthesia Ready 0951 Handoff to RN I completed my handoff to the receiving nurse during which we: 1. Identified the patient 2. Identified the responsible provider 3. Reviewed the pertinent medical history 4. Discussed the surgical course 5. Reviewed intra-op anesthesia management and issues during anesthesia 6. Set expectations for post-procedure period 7. Allowed opportunity for questions and acknowledgement of understanding. 09 An Stop 0951 an stop data Meds Name Total propOFol (DIPRIVAN) injection 50 mg * Agents No agents on file. * Blood No blood administrations on file. Lines, Drains, and Airways Type Details Placement Removal Peripheral IV 04/18/23; 2331; 20; Right; Antecubital; Inserted by RN; 1; None; Chlorhexidine; 04/21/23; 1016; Discharged 04/18/23 2331 by Aysha Jasso RN 04/21/23 1016 by Cheryl Devries RN documented in this encounter Social History Tobacco Use Types Packs/Day Years [...] No 04/19/2023 documented as of this encounter OR Notes * Anesthesia Postprocedure Evaluation - Zenon Wade MD - 04/20/2023 0951 EDT Patient: Ralph Garnica Vital signs were reviewed with the recovery nurse. [facility] Vitals Value Taken Time BP 155/98 04/20/23 0948 Temp 04/20/23 0951 Resp 18 04/20/23 0950 Pulse From Oximetry 82 BPM 04/20/23 0950 SpO2 99 % 04/20/23 0950 Heart Rate 82 BPM 04/20/23 0950 Vitals shown include unvalidated device data. Last Pain Score - Numeric Pain Level (Scale 1-10): 0 Type of Anesthesia - MAC Anesthesia Post Evaluation Post-procedure vitals reviewed and are stable. Level of consciousness: awake Temperature status: normothermia Respiratory status: airway patent and stable Cardiovascular status: stable Hydration status: adequate Nausea/Vomiting: none Pain management: adequate Post-Op Assessment: patient tolerated procedure well with no complications Patient participation: able to participate Disposition: outpatient/home Anesthesia Complications: No apparent anesthesia complications * Anesthesia Preprocedure Evaluation - Zenon Wade MD - 04/20/2023 0719 EDT Anesthesia Preprocedure Evaluation From admission H&P: Ralph Garnica is a delighftul 72 y.o. male with a PMHx of Type 2 diabetes, hypertension, hyperlipidemia with a previous NSTEMI (10/2020) and atrial flutter (on apixaban) who presented with chest pain that began two hours prior to presentation. He was found to have JAYCE and a slight increase in his troponin and a right bundle branch block. Patient Medical History, including Anesthesia History reviewed. Chart and Nursing Notes reviewed, including NPO status and Medication History. Additional ROS/History Findings: No current facility-administered medications on file prior to encounter. Current Outpatient Medications on File Prior to Encounter Medication Sig Dispense Refill ??? apixaban (ELIQUIS) 5 mg tablet Take 1 Tablet by mouth 2 times daily. 180 Tablet 3 ??? atorvastatin (LIPITOR) 40 mg tablet Take 1 Tablet by mouth every evening. 90 Tablet 3 ??? clopidogreL (PLAVIX) 75 mg tablet Take 1 Tablet by mouth daily. (Patient not taking: Reported on 03/28/2023) 90 Tablet 3 ??? cyanocobalamin, vitamin B-12, 1,000 mcg capsule Take 1,000 mcg by mouth daily. ??? losartan (COZAAR) 25 mg tablet Take [...] 3rd tablet, call 911) 25 Tablet 5 ??? Lhzjr-4-JDW-EPA-Fish Oil (FISH OIL) 1,200 (144-216) mg capsule Take 1,200 mg by mouth daily. ??? ONETOUCH ULTRA BLUE TEST STRIP test strips TEST TWICE DAILY ??? ONETOUCH ULTRASOFT LANCETS TEST TWICE DAILY ??? TAMSulosin (FLOMAX) 0.4 mg capsule Take 1 Capsule by mouth daily. 30 Capsule 11 ??? TRULICITY 0.75 mg/0.5 mL subcutaneous pen Inject 0.5 mL into the skin once a week. On Sundays Current Facility-Administered Medications Medication Route Frequency ??? acetaminophen (TYLENOL) tablet 650 mg oral Q6H PRN ??? apixaban (ELIQUIS) tablet 5 mg oral BID ??? aspirin EC tablet 81 mg oral DAILY ??? atorvastatin (LIPITOR) tablet 40 mg oral QPM ??? dextrose 40% gel 15 g of glucose oral PRN ??? dextrose 50 % solution 12.5 g intravenous PRN ??? insulin lispro (HUMALOG KWIKPEN) injection pen subcutaneous TID WC ??? insulin lispro (HUMALOG KWIKPEN) injection pen subcutaneous QHS ??? lidocaine (PF) 10 mg/mL (1 %) injection 2 mg intradermal PRN ??? magnesium sulfate 2 g in water 50 mL intravenous Now ??? nitroglycerin (NITROSTAT) SL tablet 0.4 mg sublingual Q5 MINUTES PRN ??? polyethylene glycol 3350 (MIRALAX) packet 17 g oral Daily PRN ??? TAMSulosin (FLOMAX) capsule 0.4 mg oral DAILY No Known Allergies Past Medical History: Diagnosis Date ??? BPH (benign prostatic hyperplasia) ??? Diabetes mellitus (HCC-CMS) ??? Hyperlipidemia ??? 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 Past Anesthetics [x] No history of complications from anesthesia [x] No anesthesia records on file [x]No family history of allergic reactions to anesthesia Review of Systems SOCIAL HISTORY: Social History Tobacco Use Smoking Status Never Smokeless Tobacco Never Social History Substance and Sexual Activity Drug Use Never Social History Substance and Sexual Activity Alcohol Use Yes Comment: 1-2 beers on the weekend Lab Results Component Value Date GLUCOSEPOC 126 (H) 04/19/2023 Lab Results Component Value Date WBC 6.63 04/20/2023 HGB 16.6 04/20/2023 HCT 48.7 04/20/2023 MCV 89 04/20/2023 PLT 186 04/20/2023 Lab Results Component Value Date NA 139 04/20/2023 K 4.2 04/20/2023 CL 105 04/20/2023 CO2 23 04/20/2023 Lab Results Component Value Date BUN 19 04/20/2023 Lab Results Component Value Date CREATININE 1.15 04/20/2023 No results found for: INR, PROTIME No results found for: PTT UPT: [] Patient declines test No results found for: PREGUR, PREGNANCYTE, HCGPREG COVID: [] None on file Lab Results Component Value Date COVIDUV Negative 08/26/2021 Blood Type: No results found for: ABO, LABRH, LABANTI, SPECEXP EKG: [] N/A ECHO: [] N/A Cardiac Stress: [] N/A BP 113/84 Pulse 91 Temp 36.4 ??C (97.5 ??F) (Oral) Resp 16 Ht 182.9 cm (72) Wt 100.2 kg (220 lb 12.8 oz) SpO2 95% BMI 29.95 kg/m?? Pulse From Oximetry: [48 BPM-139 BPM] Physical Exam Airway Mallampati: II TM distance: >3 FB Neck ROM: full Cardiovascular Rhythm: irregular Rate: abnormal Dental Pulmonary - normal exam Abdominal Anesthesia Plan ASA 3 Anesthesia Type - MAC Anesthesia plan and risks discussed. Informed consent obtained from patient. Specific risks discussed were other. The preoperative history and physical which was performed within 30 days of this procedure, has been reviewed and the clinically appropriate elements of the physical examination have been repeated. There are no changes to the documented history and physical or, if so, such changes are documented inthis note PAT Note Notes from 03/21/23 through 04/20/23 No notes of this type exist for this encounter. documented in this encounter Plan of Treatment Upcoming Encounters Date Type Department Care Team (Late st Contact Info) Description 04/02/2024 11:15 EDT Telemedicine [facility] Urology - [address] [phone] David Bhatt DO [address] [facility], Level [address] [place] [phone] 07/12/2024 12:30 [facility] Hospital Encounter [place] EP Lab [address] [place], [place] [address] Rodrigo Noyola MD 111 [facility], [address] [phone] Paroxysmal atrial fibrillation (HCC-CMS) 07/12/2024 12:30 EST - 07/12/2024 17:00 EST Surgery [place] [address] EP Lab [address] [place], [place] [id number] Rodrigo Noyola MD [address] [phone] Albation A-Fib [[id number] (CPT??)] 07/23/2024 11:00 EST Office Visit [facility] Cardiology Clinic [address] [place] [address] Malini Euceda MD [address] [phone] documented as of this encounter Visit Diagnoses Not on filedocumented in this encounter Administered Medications Inactive Administered Medications - up to 3 most recent administrations Medication Order MAR Action Action Date Dose Rate Site propOFol (DIPRIVAN) injection intravenous, PRN, Starting on Tue04/20/23 at 0947, Until Tue04/20/23 at 0951, Routine, Anesthesia Intraprocedure Given 04/20/2023 9:47 EDT 50 mg documented in this encounter Orders Medications Ordered That Quirino ht Not Have Been Administered Count Last Ordered Date First Ordered Date propOFol (DIPRIVAN) injection 1 04/20/2023 documented in this encounter Care Teams Varnish Finisher Relationship Specialty Start Date End Date Jessie Velasco [address] [place], [place] [phone] PCP - General Internal Medicine - Primary Care 08/26/21 Malini Euceda MD [address] [place] [address] MOB-A [address] [place] [phone] Consulting Clinician Cardiovascular Disease 11/12/21 documented as of this encounter
--- OUTSIDE RECORDS SUMMARY | 2024-03-27 17:26 | XMS_ITS | Encounter Summary ---
Author Organization [facility] Address [address] [place] [address] Care Team Providers Care Mophead Trimmer And Wrapper Name Role Phone MercyrosieJessie Primary Care Provider [phone] Malini Euceda MD Unavailable [phone] Reason for Referral * Cardiology (Routine/Next Available) - Specialty Report Received Specialty Diagnoses / Procedures Referred By Contac t Referred To Contact Nuclear Medicine Diagnoses Chest pressure Procedures NM CARD PET NUCLEAR STRESS Malini Euceda MD [address] [place] [phone] [facility] Referral ID Status Reason Start Date Expiration Date V isits Requested Visits Authorized [id number] Specialty Report Received 09/08/2022 1 1 Reason for Visit * Cardiology (Routine/Next Available) - Specialty Report Received Specialty Diagnoses / Procedures [facility] To Contact Nuclear Medicine Diagnoses Chest pressure Procedures NM CARD PET NUCLEAR STRESS Malini Euceda MD [address] [place] [phone] [facility] Referral ID Status Reason Start Date Expiration Date V isits Requested Visits Authorized [id number] Specialty Report Received 09/08/2022 1 1 Encounter Details Date Type Department Care Team (Latest Contact Info) Description 09/28/2022 6:34 EST Hospital Encounter [facility] Radiology Nuclear [place] [address] Chest pressure Discharge Disposition: Home or Self Care Social [...] tablet, call 911) 25 Tablet 5 09/07/2022 Saytk-1-SIY-EPA-Fish Oil (FISH OIL) 1,200 (144-216) mg capsule [...] 75 mg tabletIndications:Non-ST elevation myocardial infarction (NSTEMI) (HCC-CMS) Take 1 Tablet by mouth daily. 90 [...] 11:15 EDT Telemedicine [facility] Urology - [facility] [address] [place], [place] [phone] David Bhatt, 111 [facility], Level [address] [place] [phone] 07/12/2024 12:30 EST Hospital Encounter [place] 1 EP Lab [address] [place], [place] [phone] Rodrigo Noyola MD [address] [place] [phone] Paroxysmal atrial fibrillation (HCC-CMS) 07/12/2024 12:30 EST - 07/12/2024 17:00 EST Surgery [place] [address] EP Lab [address] [place], [place] [phone] Rodrigo Noyola MD [address] [place] [phone] Albation A-Fib [[id number] (CPT??)] 07/23/2024 11:00 EST Office Visit [facility] Cardiology Clinic [address] [place] [address] Malini Euceda MD [address] [place] [phone] documented as of this encounter Procedures Procedure Name Priority Date/Time Associated Diagnosis Comments NM CARD PET PHARM MULT STUDIES COMPLETE W/AQMBF SOLA 09/28/2022 9:09 EST Chest pressure documented in this encounter Results * NM CARD PET PHARM MULT STUDIES COMPLETE W/AQMBF (09/28/2022 9:09 EST) Target HR 148 bpm MCKESSON N MIS MERGE CARDIO Baseline HR 61 bpm MCKESSON NMIS MERGE CARDIO Baseline Systolic BP 166 mmHg MCKESSON NMIS MERGE CARDIO Baseline Diastolic BP 81 mmHg MCKESSON NMIS MERGE CARDIO Recovery HR 69 bpm MCKESSON NMIS MERGE CARDIO Recovery BP 135 mmHg MCKESSON NMIS MERGE CARDIO Recovery Diastolic BP 59 mmHg MCKESSON NMIS MERGE CARDIO Pre test likelihood of obstructive CAD 100 MCKESSON NMI S MERGE CARDIO LAD Flow Number 2.69 MCKE SSON NMIS MERGE CARDIO LCX Myocardial Flow Number 2.71 MCKESSON NMIS MERGE CARDIO RCA Number 2.96 MCKESSON NMIS MERGE CARDIO Overall Number 2.76 STEVEN ARNETT NMIS MERGE CARDIO Nuc Stress EF 61 % DEREJE MARTINEZ NMIS MERGE CARDIO Nuc Rest EF 64 % CARLYLE NMIS MERGE CARDIO Anatomical Region Laterality Modality Chest Positron Emissio n Tomography (PET) Narrative 09/28/2022 15:32 EST ?Perfusion: There was no myocardial perfusion defect at rest and post stress. ?Function: Global LV function is normal. Post-stress ejection fraction is 61 %. ?Stress ECG: Arrhythmias during stress: rare PVCs. ?Stress ECG: Stress ECG was negative. Sensitivity was limited due to right bundle branch block. ?Stress data: Patient experienced no chest pain. ?The overall myocardial flow reserve was 2.76 which was normal. Stress Function Comments Global LV function was normal. Global RV function was normal. Post-stress ejection fraction was 61 %. The left ventricle size was normal at stress. The right ventricle size was normal at stress. There were no regional wall motion abnormalities. Rest Function Comments Global LV function was normal at rest. Global RV function was normal at rest. Resting ejection fraction was 64 %. Baseline ECG There was normal sinus rhythm-sinus arrythmia. Non-specific T wave changes were noted at baseline. There was right bundle branch block noted on the baseline ECG. There was no ectopy noted on the baseline ECG. Stress ECG There were no significant ST segment deviations noted during stress. Arrhythmias during stress: rare PVCs. There were no significant arrhythmias noted during stress. Recovery ECG There were no significant arrhythmias noted during recovery. Result ECG Stress ECG was negative. Sensitivity was limited due to right bundle branch block. HPI and Indications Indications: nonanginal chest pain. History: 72 y.o. male with known CAD. History of a STEMI 08/2021 and moderate aortic stenosis. TTE 08/2022 EF: 60-65%. He has been experiencing right sided chest pressure that isn't related to exertion. States that this pressure started in July and occurs on a regular basis. Episodes last 5-20 minutes. Denies symptoms of discomfort upon arrival. Patient Status Risk Factors Diabetes mellitus, dyslipidemia and hypertension. Stress Data Procedure: initial setup. A baseline ECG was recorded, ECG tracings were obtained using the Q-Stress 4 machine. Surface ECG leads and manual cuff blood pressure measurements were monitored. Regadenoson. There was hypertension at baseline. Pre test likelihood of obstructive CAD: 100 . Patient experienced no chest pain. Exercise was terminated due to protocol complete (submax or pharmocological). The patient tolerated the procedure well and was discharged from the lab. Medications P2Y12 platelet inhibitors, NOAC, oral diabetic agents and statins. Myocardial Flow [place] The myocardial flow reserve was 2.69 for the LAD, which was normal. The myocardial flow reserve was 2.71 for the LCX, which was normal. The myocardial flow reserve was 2.96 for the RCA, which was normal. The overall myocardial flow reserve was 2.76 which was normal. Perfusion Defect There was no myocardial perfusion defect at rest and post stress. Image Protocol Myocardial perfusion imaging using PET/CT was performed. Nuc Impression There was normal perfusion and function after pharmacological stress. Perfusion Scoring Resting Summed Score: 0 Percent Normal: 0.00% The left ventricular perfusion is normal. Perfusion Scoring Stress Summed Score: 0 Percent Normal: 0.00% The left ventricular perfusion is normal. Perfusion Scores: SRS Score: 0 Percentage Abnormal: 0.00% Perfusion Scores: SSS Score: 0 Percentage Abnormal: 0.00% Perfusion Scores: SDS Score: 0 Percentage Abnormal: 0.00% Malini Euceda MD CARDIAC NM ORDERABLE S documented in this encounter Visit Diagnoses Diagnosis Chest pressure Other chest pain Paroxysmal atrial fibrillation (HCC-CMS)- Primary Atrial fibrillation Paroxysmal atrial fibrillation (HCC-CMS) Atrial fibrillation documented in this encounter Administered Medications Inactive Administered Medications - up to 3 most recent administrations Medication Order MAR Action Action Date Dose Rate Site rubidium RB 82 injection 10 millicurie 10 millicurie, radiopharm IV, NOW X1, 1 dose, On Tue09/28/22 at 0845, Routine, Imaging Protocol Orders Given 09/28/2022 8:28 EST 16.02 millicuries rubidium RB 82 injection 10 millicurie 10 millicurie, radiopharm IV, NOW X1, 1 dose, On Tue09/28/22 at 0845, Routine, Imaging Protocol Orders Given 09/28/2022 8:18 EST 15.86 millicuries documented in this encounter Orders Medications Ordered That Quirino ht Not Have Been Administered Count Last Ordered Date First Ordered Date rubidium RB 82 injection 10 millicurie 1 documented in this encounter Care Teams Mophead Trimmer And Wrapper Relationship Specialty Start Date End Date Jessie Velasco [address] [place] [address] PCP - General Internal Medicine - Primary Care 08/26/21 Malini Euceda MD [address] [place] [address] [address] [place] [phone] Consulting Clinician Cardiovascular Disease 11/12/21 documented as of this encounter
--- OUTSIDE RECORDS SUMMARY | 2024-03-27 17:26 | XMS_ITS | Encounter Summary ---
Author Organization [facility] Address [address] [place] [address] Care Team Providers Care Finance Insurance Manager Name Role Phone Jessie Velasco Frank Primary Care Provider Malini Euceda MD Unavailable [phone] Reason for Visit * Reason Comments Follow-up 3 mo PVR, UA, IPSS Encounter Details Date Type Department Care Team (Late st Contact Info) Description 12/24/2022 14:45 EDT Office Visit [facility] Urology - [address] [id number] David Bhatt, DO [address] [facility], [address] [place] [address] Urine retention (Primary Dx); Benign localized prostatic hyperplasia with lower urinary tract symptoms (LUTS); Hematuria, unspecified type Social History Tobacco Use Types Packs/Day Years Used Date Smoking Tobacco: Never Smokeless Tobacco: Never Tobacco Cessation:Counseling Given: Yes Alcohol Use Standard Drinks/Week Comments Yes 0 [...] No 09/16/2021 documented as of this encounter Progress Notes * David Bhatt, DO - 12/24/2022 5765 EDT 1. ??Status post TURP for BPH??and??chronic retention(2013). 2. Gross hematuria 2021. 3. NIDDM ?? Urine c/s neg. CTU: 2021 neg. Greg is here with his he is voiding well feeling well no urology issues IPSS score great physical exam is alert vital signs stable abdomen benign his bladder scan initially was 507 then he can void a little over 100 cc. His UA is negative. PSA is 1.9 this September which is stable over the years. He is on his tamsulosin 0.4 mg a day which helps him urinate quicker with a better stream. No neurologic symptoms or issues. We discussed the amount of retention being a stable amount if it [id number] and it does not worsen no changes with creatinine etc. were going to accept that. He will continue tamsulosin 0.4 mg aday stay away from cold medicines antihistamine that can potentiate the retention he knows about timed voiding and all those tricks to get as empty as possible including Crede maneuver. We discussed early detection prostate cancer he is going to continue yearly PSA checkups mate looking for major departures. This note has been prepared with voice recognition software. Please excuse satellite project site monitor errors. CC: Micaela Velasco MD documented in this encounter Plan of Treatment Upcoming Encounters Date Type Department Care Team (Late st Contact Info) Description 04/02/2024 11:15 EDT Telemedicine [facility] Urology - [address] [id number] David Bhatt DO [address] [place] [address] [address] [place] [phone] 07/12/2024 12:30 EST Hospital Encounter [place] [address] [facility] [address] [place] [address] [id number] Rodrigo Noyola MD [address] [place] [phone] Paroxysmal atrial fibrillation (HCC-CMS) 07/12/2024 12:30 EST - 07/12/2024 17:00 EST Surgery [place] [address] [facility] [address] [place] [address] [id number] Rodrigo Noyola MD [address] [place] [phone] Bryce Woo [[id number] (CPT??)] 07/23/2024 11:00 EST Office Visit [facility] [address] [place] [address] [id number] Malini Euceda MD [address] [place] [phone] Scheduled Orders Name Type Priority Associated Diagnoses Orde r Schedule PSA TOTAL, DIAGNOSTIC Lab Routine Benign localized prostatic hyperplasia with lower urinary tract symptoms (LUTS) Expected: 12/26/2023 (Approximate), Expires: 06/25/2024 CREATININE Lab Routine Benign localized prostatic hyperplasia with lower urinary tract symptoms (LUTS) Expected: 12/26/2023 (Approximate), Expires: 06/25/2024 documented as of this encounter Procedures Procedure Name Priority Date/Time Associated Diagnosis Comments POCT URINE DIPSTICK, CLINITEK Routine 12/24/2022 14:47 EDT Hematuria, unspecified type POCT CSN BARCODE URINE DIPSTICK Routine 12/24/2022 14:45 EDT Hematuria, unspecified type POCT URINE CLINITEK (DIPSTICK) - DOES NOT REFLEX Routine 12/24/2022 14:45 EDT Hematuria, unspecified type documented in this encounter Results * (ABNORMAL) POCT URINE DIPSTICK, CLINITEK (12/24/2022 14:47 EDT) Color, UA Yellow Yellow 12/24/2022 14:49 [facility] Clarity, UA Clear Clear 12/24/2022 14:49 [facility] Glucose, UA Negative Negative 12/24/2022 14:49 [facility] Bilirubin, UA Negative Negative 12/24/2022 14:49 [facility] Ketones, UA Negative Negative 12/24/2022 14:49 [facility] Specific [place], Urine 1.020 1.001 - 1.035 12/24/2022 14:49 [facility] Blood, UA Negative Negative 12/24/2022 14:49 [facility] pH, UA 7.0 4.6 - 8.0 12/24/2022 14:49 [facility] Protein, UA 2+(A) Negative 12/24/2022 14:49 EDT [facility] Urobilinogen, UA 0.2 0.2 - 1.0 mg/dL 12/24/2022 14:49 EDT [facility] Nitrite, UA Negative Negative 12/24/2022 14:49 EDT [facility] Leuk Esterase Negative Negative 12/24/2022 14:49 EDT [facility] HN LAB COMMENT (CLINITEK, UR) Test performed at [facility] 12/24/2022 14:49 EDT [facility] Urine URINE SPECIMEN COLLECTION, CLEAN CATCH / Unknown 12/24/2022 14:47 EDT 12/24/2022 14:49 EDT David Bhatt DO POINT OF CARE TEST ORDERABLES Performing Organization Address [facility] Co de Phone Number [facility] [address] [place] [address] * POCT CSN BARCODE URINE DIPSTICK (12/24/2022 14:45 EDT) Urine URINE SPECIMEN COLLECTION, CLEAN CATCH / Unknown 12/24/2022 14:45 EDT 12/24/2022 14:45 EDT David Bhatt DO LAB INFO SERVICE AN D SUPPORT & PHONE RESULT Performing Organization Address [facility] Co de Phone Number [facility] [address] [place] [address] documented in this encounter Visit Diagnoses Diagnosis Urine retention- Primary Retention of urine, unspecified Benign localized prostatic hyperplasia with lower urinary tract symptoms (LUTS) Benign localized hyperplasia of prostate with urinary obstruction and other lower urinary tract symptoms (LUTS) Hematuria, unspecified type Paroxysmal atrial fibrillation (HCC-CMS)- Primary Atrial fibrillation Paroxysmal atrial fibrillation (HCC-CMS) Atrial fibrillation documented in this encounter Orders Procedure Count Last Ordered Date First Orde red Date UROLOGY BLADDER SCAN 1 12/24/2022 documented in this encounter Care Teams Finance Insurance Manager Relationship Specialty Start Date End Date Jessie Velasco [address] [facility] [place] [address] PCP - General Internal Medicine - Primary Care 08/26/21 Malini Euceda MD [address] [place], [place] [phone] Consulting Clinician Cardiovascular Disease 11/12/21 documented as of this encounter
--- OUTSIDE RECORDS SUMMARY | 2024-03-27 17:26 | XMS_ITS | Encounter Summary ---
Author Organization [facility] Address [address] [place] [address] Care Team Providers Care Hearth Feeder Name Role Phone Jessie Velasco Primary Care Provider [phone] Malini Euceda MD Unavailable [phone] Reason for Referral * Cardiology (Routine/Next Available) - New Request Specialty Diagnoses / Procedures Referred By [facility] t Referred To Contact Diagnoses Chest pressure Procedures EKG 12-LEAD Malini Euceda MD [address] [place] [phone] Referral ID Status Reason Start Date Expiration Date V isits Requested Visits Authorized [id number] New Request 09/07/2022 1 1 Encounter Details Date Type Department Care Team (Late st Contact Info) Description 09/07/2022 Orders Only [facility] Cardiology Clinic [address] [place] [address] Malini Euceda MD [address] [place] [phone] Chest pressure (Primary Dx) Social History Tobacco Use Types [...] Description 04/02/2024 11:15 EDT Telemedicine [facility] [address] [place] [address] David Bhatt, DO 111 [facility], [address] [place] [phone] 07/12/2024 12:30 EST Hospital Encounter [place] [facility] [address] [place], [place] [phone] Rodrigo Noyola MD [address] [place] [phone] Paroxysmal atrial fibrillation (HCC-CMS) 07/12/2024 12:30 EST - 07/12/2024 17:00 EST Surgery [place] [address] EP [facility] [address] [place], [place] [phone] Rodrigo Noyola MD [address] [place] [phone] [place] A-Fib [[id number] (CPT??)] 07/23/2024 11:[address] [facility] Cardiology Clinic [address] [place] [address] Malini Euceda MD [address] [place] [phone] documented as of this encounter Results * EKG 12-LEAD (09/08/2022 15:24 EST) 09/08/2022 15:2 4 EST Narrative [facility] - 09/08/2022 22:44 EST ? CVC ? Test Date: ?2022-09-08 Pat Name: ? RALPH GARNICA ?Department: ? Room: ? Gender: ? Male ? Chess Instructor: ?? MM : ?1950 ? Requested By: AMADA IRWIN D Order Number: [id number] ? Reading MD: ?? BRINDA LOPEZ MD ? Measurements Intervals ?[place] ? Rate: ? 64 ? P: ?41 SD: ? 184 ?QRS: ?-41 QRSD: ? 146 ?T: ?117 QT: ? 414 ? QTc: ?427 ? Interpretive Statements Sinus rhythm with marked sinus arrhythmia Left axis deviation Right bundle branch block T wave abnormality, consider lateral ischemia Compared to ECG 08/27/2021 15:11:52 Sinus bradycardia no longer present T-wave abnormality still present Possible ischemia still present I reviewed the tracing and have either agreed or edited the findings in this report. Electronically Signed On 09-08-2022 22:44:47 EST by BRINDA LOPEZ MD. Procedure Note Brinda Lopez MD - 09/08/2022 CVC Test Date: 2022-09-08 Pat Name: RALPH GARNICA Department: Room: Gender: Male Chess Instructor: : 1950 Requested By: AMADA Garcia Order Number: [id number] Reading MD: BRINDA LOPEZ MD Measurements Intervals [place] Rate: 64 P: 41 SD: 184 QRS: -41 QRSD: 146 T: 117 QT: 414 QTc: 427 Interpretive Statements Sinus rhythm with marked sinus arrhythmia Left axis deviation Right bundle branch block T wave abnormality, consider lateral ischemia Compared to ECG 08/27/2021 15:11:52 Sinus bradycardia no longer present T-wave abnormality still present Possible ischemia still present I reviewed the tracing and have either agreed or edited the findings inthis report. Electronically Signed On 09-08-2022 22:44:47 EST by BRINDA DAVIS. Malini Euceda MD CARDIAC ECG ORDERABL ES [facility] documented in this encounter Visit Diagnoses Diagnosis Chest pressure- Primary Other chest pain Chest pressure- Primary Other chest pain Paroxysmal atrial fibrillation (HCC-CMS)- Primary Atrial fibrillation Paroxysmal atrial fibrillation (HCC-CMS) Atrial fibrillation documented in this encounter Care Teams Hearth Feeder Relationship Specialty Start Date End Date Jessie Velasco [address] [place] [address] [place] [id number] PCP - General Internal Medicine - Primary Care 08/26/21 Malini Euceda MD [address] [place] [address] [place] [address] Consulting Clinician Cardiovascular Disease 11/12/21 documented as of this encounter
--- OUTSIDE RECORDS SUMMARY | 2024-03-27 17:26 | XMS_ITS | Encounter Summary ---
Author Organization [facility] Address [address] [place] [address] Care Team Providers Care Oracle Dba Name Role Phone Jessie Velasco Primary Care Provider [phone] Malini Euceda MD Unavailable [phone] Encounter Details Date Type Department Care Team (Latest Contact Info) Description 04/13/[address] [facility] [address] [place] [address] Social History Tobacco Use Types Packs/Day Years [...] as of this encounter Progress Notes * Lilliam Goncalves, PT - 04/13/2023 4663 EDT Outpatient Rehab Plan of Care Assessment Therapy Diagnosis: mobility impairment secondary achilles tendonitis Problem List: Impaired ambulation, Need for an independent home exercise program and Pain Assessment: Active 72 year old patient with 6 month history of right achilles pain. He has considerable achilles weakness, but otherwise good flexibility and strength. I expect he will do well with PT however progress is likely to be slow Equipment Needed: heel lifts- provided Barriers to Learning: none Potential Barriers to Progress: None Response to Evaluation: Well Rehabilitation Potential: Motivation/Commitment to Therapy: Good Rehabilitation Potential: Good Short-Term Goals Timeframe: 2 weeks 04/27/23 1. ind HEP Long-Term Goals Timeframe: 10 weeks 06/22/23 1. Ralph will be able to walk 30 minutes without discomfort for purpose of cardiovascular fitness 2. Ralph will be able to carry 25# without discomfort PLAN Medical Necessity: Therapy intervention is indicated in order to return to a premorbid level of function or significantly improve current level of function. Physical Therapy is recommended for: Treatment Frequency/ Duration: 1x/week or every other week up to 10 weeks Therapy Treatment to include: 61221 - Therapeutic Exercise and 76169 - Manual Therapy Recommended Consults: none Development of Plan of Care: Patient participated in development of plan of care today. Plan ATTENDING PHYSICIAN: Medicare certification needed. Your signature indicates you approve the therapy goals and plan of care outlined on this document dated 04/13/2023. Thank you! Attending Physician Signature Date LILLIAM GONCALVES, PT 04/13/2023 13:42 documented in this encounter Plan of Treatment Upcoming Encounters Date Type Department Care Team (Late st Contact Info) Description 04/02/2024 11:15 EDT Telemedicine [facility] Urology - [address] [phone] David Bhatt DO [address] [place] [address], [facility] [address] [place] [phone] 07/12/2024 12:30 EST Hospital Encounter [place] [address] [facility] [address] [place] [phone] Rodrigo Noyola MD [address] [place] [phone] Paroxysmal atrial fibrillation (HCC-CMS) 07/12/2024 12:30 EST - 07/12/2024 17:00 EST Surgery [facility] [address] [facility] [address] [place] [address] [phone] Rodrigo Noyola MD [address] [place] [phone] Bryce Woo [[id number] (CPT??)] 07/23/2024 11:[address] [facility] Cardiology Clinic [address] [place], [place] [address] Malini Euceda MD 111 [facility] [place], [address] [place] [phone] documented as of this encounter Visit Diagnoses Not on filedocumented in this encounter Care Teams Oracle Dba Relationship Specialty Start Date End Date Jessie Velasco [address] [place] [id number] PCP - General Internal Medicine - Primary Care 08/26/21 Malini Euceda MD [address] [place] [address] [address] [place] [phone] Consulting Clinician Cardiovascular Disease 11/12/21 documented as of this encounter
--- OUTSIDE RECORDS SUMMARY | 2024-03-27 17:26 | XMS_ITS | Encounter Summary ---
Author Organization [facility] Address [address] [place] [address] Care Team Providers Care Senior Test Engineer Name Role Phone Jessie Velasco Frank Primary Care Provider [phone] Malini Euceda MD Unavailable [phone] Reason for Visit * Reason Comments Chest Pain Chest a pain started 2 hours ago. Took nitro 1 hour ago with no relief. * Auth/Cert (Routine) Specialty Diagnoses / Procedures Referred By [facility] t Referred To Contact Diagnoses Acute renal insufficiency Elevated troponin Atrial fibrillation with rapid ventricular response (HCC-CMS) Atrial fibrillation with RVR ([facility]-CMS) Referral ID Status Reason Start Date Expiration Date Visits Re quested Visits Authorized [id number] 04/18/2023 04/21/2023 1 1 Encounter Details Date Type Department Care Team (Latest Contact Info) Description 04/18/2023 23:18 EDT - 04/21/2023 10:35 EDT Hospital Encounter [facility] Intensive Care Unit [address] [place] [address] Izabella Zimmer MD [address] [place] [address] [phone] Devora Garcia MD [address] [place] [address] [phone] oJse Rico MD MPH [address] [place] [phone] Colton Terry MD [address] [place] [phone] Atrial fibrillation with RVR (HCC-CMS) (Primary Dx); Elevated troponin; Acute renal insufficiency Discharge Disposition: Home or Self Care Social [...] Sign Reading Time Taken Comments Blood Pressure 141/81 04/21/2023 0836 EDT Pulse 91 04/19/2023 0316 EDT Temperature 36.4 ??C (97.6 ??F) 04/21/2023 0836 EDT Respiratory Rate 16 04/21/2023 0538 EDT Oxygen Saturation 98% 04/21/2023 0836 EDT Inhaled Oxygen Concentration - - Weight 99.9 kg (220 lb 3.2 oz) 04/21/2023 0538 E DT Height 182.9 cm (6') 04/19/2023 0406 EDT Body Mass Index 29.86 04/19/2023 0406 EDT documented in this encounter Functional Status [...] 04/19/2023 documented as of this encounter Discharge Summaries * Colton Terry MD - 04/21/2023 0957 EDT HOSPITAL MEDICINE DISCHARGE SUMMARY Primary Care Provider: Jessie Velasco Attending Physician: Colton Terry MD Admit Date: 04/18/23 Discharge Date: 04/21/23 Disposition (location): home Condition at Discharge: improved Reason for Admission (chief complaint): tachycardia Principal/Final Diagnosis: Atrial fibrillation with RVR (HCC-CMS) ([facility]) Additional Problems Managed in the Hospital: Active Hospital Problems Diagnosis Date Noted *Atrial fibrillation with RVR (HCC-CMS) ([facility]) 04/19/2023 Atrial fibrillation with rapid ventricular response (HCC-CMS) ([facility]) 04/19/2023 Elevated troponin 04/19/2023 Acute renal insufficiency 04/19/2023 Resolved Hospital Problems No resolved problems to display. Transition of care: [facility] Transition of Care report automatically routed to PCP office on discharge. Clinical Issues Needing Follow-up Cardiology follow up HPI: From Dr Hinkle's H&P: Ralph Jeong is a delighftul 72 y.o. male with a PMHx of Type 2 diabetes, hypertension, hyperlipidemia with a previous NSTEMI (10/2020) and atrial flutter (on apixaban) who presented with chest pain.Chest pain began approximately 2 hours prior to presentation and was associated with a heart rate in the 130s and systolic pressure in the 180s. He denies any diaphoresis. He describes the pain as similar to the chest pressure he had with his GA in 2020. With his previous NSTEMI in 2020 patient underwent a left heart catheterization which was notable for moderate multivessel disease but no clear culprit lesion was identified. No stent were placed. Patient was treated medically. Patient then underwent a PET stress test in 09/2022 which showed no perfusion defect and m=normal myocardial blood flow. Laboratory studies notable for a creatinine of 1.49 and an initial troponin of 0.037. TSH was elevated 7.75 but his free T4 was within normal limits. EKG, on arrival, with sinus tachycardia with a rate of 132 and a right bundle branch block-- and a left anterior fascicular block. There were T wave inversion in V1 through V4. This was similar to his EKG from 08/27/21. Patient was given 15 mg of dilt and his heart rate dropped into the 60s to 70s. A repeat EKG with atrial fibrillation with a rateof 70 and a right bundle branch block. There were persistent T wave inversions in V1 through V4. 324 mg of aspirin was given in the ED for the slight increase in troponin. Dr Zimmer discussed the case with Dr Torres The Hospitalist service was contacted for admission. Given need for dilt drip patient will be admitted to ICU. Hospital Course: Mr Jeong is a pleasant 72 yo male with diabetes, hypertension, hyperlipidemia, prior NSTEMI and atrial flutter now on apixaban who presented with chest pain. He was found to have atrial fibrillation with RVR and a type II NSTEMI. 1. Atrial flutter with RVR: Now s/p cardioversion. If he reverts back to afib/flutter, would initiate dofetilide per cardiology, though this was not needed. --continue apixaban --continue telemetry --keep mag >2.0, potassium >4.0 2. NSTEMI, type II: Defer stress testing currently, appears to be due to demand ischemia. 3. MEE: Outpatient follow-up, this will benefit his cardiac health. 4. Diabetes: SSI, CCD. 5. Hyperlipidemia: Continue atorvastatin. 6. BPH: Continue tamsulosin. Relevant Imaging/Procedures Performed: No results found. Results Pending at Discharge: Test results still pending from this admission None Please see your PCP in 1-2 weeks. I personally spent >30 minutes reviewing the chart, evaluating and examining the patient, counseling and preparing the patient for discharge, and coordinating follow up. Colton Terry MD 04/21/2023 9:57 documented in this encounter Medications at Time [...] tablet, call 911) 25 Tablet 5 09/07/2022 Drfch-7-JYH-EPA-Fish Oil (FISH OIL) 1,200 (144-216) mg capsule [...] Means Destination Comment s Home or Self Longterm documented in this encounter Progress Notes * Cheryl Devries RN - 04/21/2023 1047 EDT Uneventful morning. Pt is in good spirits. NSR on tele. Pt d/c home this morning, follow up care reviewed with patient at bedside. Patient ambulated off unit with , plan to use personal transportation. * Yoly Barnes - 04/21/2023 0958 EDT DC Destination and with who: home with spouse If Senior Living, Level of Care: N/A Client and/or Family Aware and in Agreement with the dc plan: yes IM Issued: yes Community Service Referrals and Agency: N/A Was the Agency/Person Notified, Who, Contact Info?: N/A Any New Equipment/What Type and from where?: N/A Mode of Transportation and Agency: spouse Patient agrees with the discharge plan. * Sotero Kaur RN - 04/20/2023 2110 EDT Assumed care @ 1900, pt ambulating jeong with , both very pleasant, pt on RA, SA on tele BP stable, Afebrile, informed family that if we have to admit someone to that room that she would need to go home stated Thank you for informing us and that is ok pt rested most of shift, remained in SA to SR to 1stblock, no other acute changes * Colton Terry MD - 04/20/2023 1539 EDT Progress Note Admit Date: 04/18/2023 Service Date: 04/20/2023 CC: Chief Complaint Patient presents with ??? Chest Pain Chest a pain started 2 hours ago. Took nitro 1 hour ago with no relief. 24 Hour Events: No adverse events Subjective: Patient feels well. He has mild lightheadedness, but otherwise feels fine. He denies any fevers, chills, sob, chest pain, headaches, v/d, joint swelling, rashes, bleeding. Review of Systems: A ten point review of systems was performed and was negative except for pertinent positives noted above. Objective: BP 101/73 Pulse 91 Temp 36.4 ??C (97.5 ??F) (Oral) Resp 13 Ht 182.9 cm (72) Wt 100.2 kg (220 lb 12.8 oz) SpO2 97% BMI 29.95 kg/m?? Intake/Output Summary (Last 24 hours) at 04/20/2023 1539 Last data filed at 04/20/2023 0600 Gross per 24 hour Intake 64.92 ml Output -- Net 64.92 ml Exam: Gen: lying in bed, NAD HEENT: anicteric sclerae, MMM, AT/NC, EOMI Neck: supple, no LAD Lungs: CTAB, unlabored CV: RRR, nl S1 S2, no murmur Abd: soft, NT, ND, +BS, no masses : catheter absent Ext: warm, wp, trace LE edema, no joint swelling Neuro: AAOx3, symmetric, non-focal Psych: calm, conversant, normal affect Skin: no rashes or lesions identified Telemetry / EKG: SR with PACs Data Review: Recent Labs 04/20/23 0600 WBC 6.63 RBC 5.50 HGB 16.6 HCT 48.7 MCV 89 MCH 30.2 MCHC 34.1 PLT 186 NEUTROABS 4.46 Recent Labs 04/18/23 2327 04/20/23 0600 NA 141 139 K 4.5 4.2 CL 102 105 CO2 28 23 BUN 18 19 CREATININE 1.49* 1.15 CALCIUM 9.8 9.0 MG 2.1 1.7 LABALBU 4.7 -- Recent Labs 04/19/23 1207 TROPONINI 0.054* Recent Labs 04/18/23 2327 TBIL 0.5 ALKPHOS 108 AST 32 ALT 30 Recent Labs 04/19/23 0135 COLOR Light Yellow CLARITYU Clear GLUCOSEU Negative BILIRUBINUR Negative KETONES Negative LABSPEC 1.010 BLOOD Trace* PHUR 6.5 PROTEINUA 5 Trace UROBILINOGEN 0.2 NITRITE Negative LEUKESTER Trace* Assessment: Mr Jeong is a pleasant 72 yo male with diabetes, hypertension, hyperlipidemia, prior NSTEMI and atrial flutter now on apixaban who presented with chest pain. He was found to have atrial fibrillation with RVR and a type II NSTEMI. Plan: 1. Atrial flutter with RVR: Now s/p cardioversion. If he reverts back to afib/flutter, would initiate dofetilide per cardiology. --continue apixaban --continue telemetry --keep mag >2.0, potassium >4.0 2. NSTEMI, type II: Defer stress testing currently, appears to be due to demand ischemia. 3. MEE: Outpatient follow-up, this will benefit his cardiac health. 4. Diabetes: SSI, CCD. 5. Hyperlipidemia: Continue atorvastatin. 6. BPH: Continue tamsulosin. Prophylaxis: apixaban Estimated date of discharge: 1-3 days I spent more than 50 minutes in clinical time solely dedicated to caring for this patient today. Time spent in review of the medical chart, review of labs, review of imaging, examining and evaluatingthe patient, counseling, discussion with consultants, treatment planning, placing orders, disease counseling, discharge planning and coordination of care. This excludes time reported with other services. Colton Terry MD * Cheryl Devries RN - 04/20/2023 0944 EDT 0945: Cardiology and Anesthesiology at bedside for planned CV. Procedure went well. Resulted in a sinus rhythm. Patient is now tolerating meals, in good spirits. visiting at bedside. Pt aware of plan to stay overnight and d/c tomorrow if no further tachycardia. Plan to mobilize patient around unit and monitor HR. * Sotero Kaur RN - 04/20/2023 0402 EDT Assumed care @ 1900, pt on RA, BP stable, Aflutter on tele on dilt gtt @ 5mg/hr, at bedside, dilt off this a.m @ 0359 per md for scheduled cardioversion this a.m. NPO @ midnight, no other acute changes * Jose Rico MD MPH - 04/19/2023 1437 EDT Medicine Progress Note Service Date: 04/19/2023 Admit Date: 04/18/2023 23:18 Hospital Day: 0 PCP: Jessie Lópezuart Jansen Nahun is a 72 y.o. male with a chief complaint of Chest Pain (Chest a pain started 2 hours ago. Took nitro 1 hour ago with no relief.) now admitted with a diagnosis of Atrial fibrillation with RVR (HCC-CMS) ([facility]). 24 Hour Events: ?? Admitted Subjective/Objective Subjective Patient today feels okay. No chest pain anymore. Objective Vital Signs Temp: [36.3 ??C (97.3 ??F)-36.8 ??C (98.2 ??F)] ; Heart Rate: [64 BPM-139 BPM] , Pulse: [91-132] ; BP: (97-181)/(49-112) ; Resp: [9-20] ; SpO2: [93 %-97 %] Physical Exam General: Well-appearing male lying hospital in no acute resting room air. Cardiac: Regular rate, irregular rhythm no appreciable murmur. Meds: Current Facility-Administered Medications: ??? acetaminophen (TYLENOL) tablet 650 mg, 650 mg, Q6H PRN ??? apixaban (ELIQUIS) tablet 5 mg, 5 mg, BID ??? aspirin EC tablet 81 mg, 81 mg, DAILY ??? atorvastatin (LIPITOR) tablet 40 mg, 40 mg, QPM ??? dextrose 40% gel 15 g of glucose, 15 g of glucose, PRN ??? dextrose 50 % solution 12.5 g, 12.5 g, PRN ??? dilTIAZem (CARDIZEM) in D5W 125 mg/125 mL infusion, 5-20 mg/hr, CONTINUOUS ??? insulin lispro (HUMALOG KWIKPEN) injection pen, , TID WC ??? insulin lispro (HUMALOG KWIKPEN) injection pen, , QHS ??? lidocaine (PF) 10 mg/mL (1 %) injection 2 mg, 2 mg, PRN ??? nitroglycerin (NITROSTAT) SL tablet 0.4 mg, 0.4 mg, Q5 MINUTES PRN ??? polyethylene glycol 3350 (MIRALAX) packet 17 g, 17 g, Daily PRN ??? TAMSulosin (FLOMAX) capsule 0.4 mg, 0.4 mg, DAILY Labs: Results for orders placed or performed during the hospital encounter of 04/18/23 (from the past 24 hour(s)) COMPLETE BLOOD COUNT AND DIFFERENTIAL Result Value Ref Range WBC 5.15 4.00 - 10.40 K/cmm RBC 5.48 4.36 - 5.78 M/cmm Hemoglobin 16.2 13.8 - 17.3 g/dL HCT 49.6 39.5 - 50.2 % MCV 91 81 - 95 fL MCH 29.6 27.6 - 33.0 pg MCHC 32.7 (L) 32.8 - 36.4 g/dL RDW-CV 13.6 <14.2 % RDW-SD 45.7 <46.0 fl PLT 202 141 - 377 K/cmm MPV 9.3 (L) 9.5 - 12.7 fL % Neutrophils 55.9 % % Lymphocytes 30.5 % % Monocytes 9.1 % % Eosinophils 3.7 % % Basophils 0.6 % % Immature Grans 0.2 % Absolute Neutrophils 2.88 2.20 - 8.85 K/cmm Absolute Lymphocytes 1.57 1.09 - 3.30 K/cmm Absolute Monocytes 0.47 0.10 - 0.80 K/cmm Absolute Eosinophils 0.19 0.03 - 0.61 K/cmm ABS Basophils 0.03 0.01 - 0.11 K/cmm Absolute Immature Grans 0.01 0.00 - 0.06 K/cmm Type of Differential: Auto COMPREHENSIVE METABOLIC PANEL (CMP) Result Value Ref Range Sodium 141 136 - 145 mmol/L Potassium 4.5 3.5 - 5.0 mmol/L Chloride 102 96 - 110 mmol/L CO2 Total 28 22 - 32 mmol/L Glucose 143 (H) 70 - 99 mg/dl BUN 18 10 - 26 mg/dL Creatinine 1.49 (H) 0.66 - 1.25 mg/dL eGFR 50 (L) >60 mL/min/1.73m2 Total Protein 7.5 6.3 - 8.2 g/dL Albumin 4.7 3.4 - 4.9 g/dL Alkaline Phosphatase 108 38 - 126 U/L AST 32 15 - 46 U/L ALT 30 <50 U/L Bilirubin, Total 0.5 <1.4 mg/dL Calcium 9.8 8.5 - 10.5 mg/dL Albumin/Globulin Ratio 1.7 1.0 - 2.5 g/dL Anion Gap 11 5 - 14 mmol/L C REACTIVE PROTEIN Result Value Ref Range C-Reactive Protein <5.0 <10.0 mg/L MAGNESIUM Result Value Ref Range Magnesium 2.1 1.7 - 2.8 mg/dL TROPONIN I Result Value Ref Range Troponin I (ng/mL) <0.034 <0.034 ng/mL TSH Result Value Ref Range TSH 7.75 (H) 0.47 - 4.68 mIU/L T4 FREE Result Value Ref Range T4, Free 1.0 0.8 - 2.2 ng/dL TROPONIN I Result Value Ref Range Troponin I (ng/mL) 0.037 (HH) <0.034 ng/mL POCT URINE DIPSTICK, VISUAL READ Result Value Ref Range Color, UA Light Yellow Clarity, UA Clear Glucose, UA Negative . mg/dL Bilirubin, UA Negative Negative Ketones, UA Negative . mg/dL Spec Grav, UA 1.010 1.005 - 1.030 Blood, UA Trace (A) Negative pH, UA 6.5 4.6 - 8.0 Protein, UA 5 Trace . mg/dL Urobilinogen, UA 0.2 0.2 - 1.0 E.U./dL Nitrite, UA Negative . Leuk Esterase Trace (A) Negative Comment TROPONIN I Result Value Ref Range Troponin I (ng/mL) 0.080 (HH) <0.034 ng/mL COMPLETE BLOOD COUNT Result Value Ref Range WBC 6.45 4.00 - 10.40 K/cmm RBC 5.06 4.36 - 5.78 M/cmm Hemoglobin 15.3 13.8 - 17.3 g/dL HCT 45.5 39.5 - 50.2 % MCV 90 81 - 95 fL MCH 30.2 27.6 - 33.0 pg MCHC 33.6 32.8 - 36.4 g/dL RDW-CV 13.5 <14.2 % RDW-SD 44.1 <46.0 fl PLT 178 141 - 377 K/cmm MPV 9.3 (L) 9.5 - 12.7 fL POCT GLUCOSE, INTERFACED Result Value Ref Range Glucose, POC 110 (H) 70 - 100 mg/dL HN LAB POC COMMENT (GLUCOSE) Test Performed in DSCU HEPARIN LEVEL - UNFRACTIONATED HEPARIN Result Value Ref Range Heparin Level-UFH 1.18 (HH) Therapeutic Range: 0.30 - 0.70 IU/mL HOLD SST Result Value Ref Range Hold Hold POCT GLUCOSE, INTERFACED Result Value Ref Range Glucose, POC 133 (H) 70 - 100 mg/dL HN LAB POC COMMENT (GLUCOSE) Test Performed in DSCU TROPONIN I Result Value Ref Range Troponin I (ng/mL) 0.054 (HH) <0.034 ng/mL Test results still pending from this admission None Micro: No results found for this or any previous visit (from the past 24 hour(s)). I reviewed the patient's laboratory studies for today. Assessment/Plan Assessment Ralph Jeong is a 72 y.o. male with history of type 2 diabetes mellitus, hypertension, lipidemia, previous NSTEMI, and atrial flutter now on apixaban who presented with chest pain. Chest pain was associated with tachycardia with his atrial fibrillation. Troponin did increase however, on discussionwith cardiology this appears to be type II NSTEMI. They will attempt a cardioversion for him tomorrow. Plan Atrial flutter with RVR - Continue anticoagulation with Eliquis - Continuous cardiac monitoring/telemetry - Maintain mag greater than 2.0, potassium greater than 4.0 - As needed diltiazem drip, will discontinue at 4 AM tomorrow prior to cardioversion. - Consult cardiology, patient recommendations. We will proceed with cardioversion tomorrow. NSTEMI, type II - Defer stress testing currently, appears to be due to demand ischemia. MEE - Outpatient follow-up, this will benefit his cardiac health DM2 - Sign scale insulin with meals. Hyperlipidemia - Continue atorvastatin BPH - Continue tamsulosin FEN: DIET HEART HEALTHY DIET NPO AFTER MIDNIGHT VTE Prophylaxis: Apixaban Discharge Plan: Home anticipated 1 to 2 days. CODE STATUS: Full Code Jose Rico MD MPH, 04/19/2023 14:37 * Yoly Barnes - 04/19/2023 1138 EDT Case Management Progress Note: Level of Care: Acute Discharge Plan/Estimated Date of Discharge: Home/ couple of days Insurance/Payor Source: [employer] Blue/ Medicare Barriers to Discharge: troponin rising, DILT Drip Support Network: family Transportation: spouse Continued Planning: Patients stress test was cancelled. Troponin continues to rise and he was placed on DILT drip. CM will continue to help with discharge planing. * Sotero Kaur RN - 04/19/2023 0529 EDT Arrived approx 0350, pt ambulated to bed, on RA, at bedside, BP stable, afebrile, HR flucutating from 70 to 120 when awake while on 5mg/hr dilt, once resting/asleep hr dropping to low 50's to 80's, dilt gtt off, No other acute changes * Sotero Kaur RN - 04/19/2023 0424 EDT FOUR EYES SKIN ASSESSMENT Four Eyes skin assessment was performed on admission to the unit by Sotero Kaur RN and Kacey. Patient has the following devices at the time of this assessment: BP cuff and Peripheral IV. Device related pressure injury present? No Areas of concern: Fill in detail for areas of concern [] Occiput [] Nose [] Ear [] Lip [] Scapula [] Spinous process [] Shoulder [] Elbow [] Iliac crest [] Sacrum/coccyx [] Ischial tuberosity [] Trochanter [] Knee [] Malleolus [] Heel [] Toe [x] Other: Right Carranza has scabbed over abrasion Refused to remove shorts but denied any wounds Last Raul Score: 22 Instructions: ??? Add LDA for any identified wounds ??? Add Godwin image for any suspected PI or non surgical wounds ??? Order wound consult if suspected PI identified ? ? If Raul is < or = to 16, initiate Pressure Injury Prevention Bundle ([id number]). 04/19/2023 4:25 documented in this encounter H&P Notes * Devora Garcia MD - 04/19/2023 0244 EDT Hospital Medicine Admission History & Physical Service Date: 04/19/2023 Admit Date: N/A Primary Care Provider: Jessie Velasco Chief Complaint: Chest Pain HPI Ralph Jeong is a delighftul 72 y.o. male with a PMHx of Type 2 diabetes, hypertension, hyperlipidemia with a previous NSTEMI (10/2020) and atrial flutter (on apixaban) who presented with chest pain.Chest pain began approximately 2 hours prior to presentation and was associated with a heart rate in the 130s and systolic pressure in the 180s. He denies any diaphoresis. He describes the pain as similar to the chest pressure he had with his GA in 2020. With his previous NSTEMI in 2020 patient underwent a left heart catheterization which was notable for moderate multivessel disease but no clear culprit lesion was identified. No stent were placed. Patient was treated medically. Patient then underwent a PET stress test in 09/2022 which showed no perfusion defect and m=normal myocardial blood flow. Laboratory studies notable for a creatinine of 1.49 and an initial troponin of 0.037. TSH was elevated 7.75 but his free T4 was within normal limits. EKG, on arrival, with sinus tachycardia with a rate of 132 and a right bundle branch block-- and a left anterior fascicular block. There were T wave inversion in V1 through V4. This was similar to his EKG from 08/27/21. Patient was given 15 mg of dilt and his heart rate dropped into the 60s to 70s. A repeat EKG with atrial fibrillation with a rateof 70 and a right bundle branch block. There were persistent T wave inversions in V1 through V4. 324 mg of aspirin was given in the ED for the slight increase in troponin. Dr Zimmer discussed the case with Dr Torres The Hospitalist service was contacted for admission. Given need for dilt drip patient will be admitted to ICU. Review of Systems A complete 10 point ROS was performed and pertinent positive and negative findings listed in HPI, otherwise negative. Past Medical History: Diagnosis Date ??? BPH (benign prostatic hyperplasia) ??? Diabetes mellitus ([facility]) ??? Hyperlipidemia ??? Hypertension No past surgical history on file. Social History Tobacco Use ??? Smoking status: Never ??? Smokeless tobacco: Never Substance Use Topics ??? Alcohol use: Yes Comment: 1-2 beers on the weekend No family history on file. Medications Prior to Admission Medication Sig ??? apixaban (ELIQUIS) 5 mg tablet Take 1 Tablet by mouth 2 times daily. ??? atorvastatin (LIPITOR) 40 mg tablet Take 1 Tablet by mouth every evening. ??? clopidogreL (PLAVIX) 75 mg tablet Take 1 Tablet by mouth daily. (Patient not taking: Reported on 03/28/2023) ??? losartan (COZAAR) 25 mg tablet Take [...] to take 3rd tablet, call 911) ??? Zfcge-1-AVK-EPA-Fish Oil (FISH OIL) 1,200 (144-216) mg capsule Take 1,200 mg by mouth daily. ??? ONETOUCH ULTRA BLUE TEST STRIP test strips TEST TWICE DAILY ??? ONETOUCH ULTRASOFT LANCETS TEST TWICE DAILY ??? TAMSulosin (FLOMAX) 0.4 mg capsule Take 1 Capsule by mouth daily. ??? TRULICITY 0.75 mg/0.5 mL subcutaneous pen Inject 0.5 mL into the skin once a week. On Sundays No Known Allergies Objective Vitals Temp: --, Heart Rate: [64 BPM-118 BPM] , Pulse: [132] , Resp: [9-20] , BP: (121-181)/(75-112) , SpO2: [94 %-97 %] , Numeric Pain Level (Scale 1-10): 4 Weight: There is no height or weight on file to calculate BMI. Physical Exam Vital signs reviewed Physical examination completed by me on date of service. Results as detailed below. Constitutional: General: Delightful 72-year-old male in no acute distress. Appearance: Normal appearance. HENT: Head: Normocephalic and atraumatic. Right Ear: External ear normal. Left Ear: External ear normal. Nose: Nose normal. Mouth/Throat: Mouth: Mucous membranes are moist. Eyes: Extraocular Movements: Extraocular movements intact. Conjunctiva/sclera: Conjunctivae normal. Pupils: Pupils are equal, round, and reactive to light. Cardiovascular: Rate and Rhythm: Regular rhythm. Tachycardia present. Heart sounds: Normal heart sounds. Pulmonary: Effort: Pulmonary effort is normal. Breath sounds: Normal breath sounds. Abdominal: General: Bowel sounds are normal. Palpations: Abdomen is soft. There is no mass. Tenderness: There is no abdominal tenderness. Musculoskeletal: General: No swelling or deformity. Normal range of motion. Cervical back: Normal range of motion and neck supple. Skin: General: Skin is warm and dry. Neurological: General: No focal deficit present. Mental Status: He is alert and oriented to person, place, and time. Psychiatric: Mood and Affect: Mood normal. Behavior: Behavior normal. Labs I have personally reviewed Laboratory studies notable for a creatinine of 1.49 and a troponin of 0.037 Recent Labs 04/18/23 2327 WBC 5.15 RBC 5.48 HGB 16.2 HCT 49.6 MCV 91 MCH 29.6 MCHC 32.7* PLT 202 NEUTROABS 2.88 Recent Labs 04/18/23 2327 NA 141 K 4.5 CL 102 CO2 28 BUN 18 CREATININE 1.49* CALCIUM 9.8 MG 2.1 LABALBU 4.7 Recent Labs 04/19/23 0132 TROPONINI 0.037* Recent Labs 04/18/23 2327 TBIL 0.5 ALKPHOS 108 AST 32 ALT 30 Recent Labs 04/19/23 0135 COLOR Light Yellow CLARITYU Clear GLUCOSEU Negative BILIRUBINUR Negative KETONES Negative LABSPEC 1.010 BLOOD Trace* PHUR 6.5 PROTEINUA 5 Trace UROBILINOGEN 0.2 NITRITE Negative LEUKESTER Trace* EKG Two EKGs were obtained and independently reviewed by me. The first EKG, on arrival, with sinus tachycardia with a rate of 132 and a right bundle branch block-- and a left anterior fascicular block. There were T wave inversion in V1 through V4. This was similar to his EKG from 08/27/21. A repeat EKG with atrial fibrillation with a rate of 70 and a right bundle branch block. There werepersistent T wave inversions in V1 through V4. Imaging I have independently visualized images No results found.. Assessment Ralph Jeong is a delighftul 72 y.o. male with a PMHx of Type 2 diabetes, hypertension, hyperlipidemia with a previous NSTEMI (10/2020) and atrial flutter (on apixaban) who presented with chest pain that began two hours prior to presentation. He was found to have JAYCE and a slight increase in his troponin and a right bundle branch block. Plan Chest Pain: Hx of NSTEMI in 10/2020. Slight up-tick in troponin in setting of atrial fib with RVR. Unclear if related to demand alone or demand and underlying disease. Reports some relief with nitro that he took at home prior to presentation -- Admit for further risk stratification -- Cycle troponins -- NM stress test ordered for am -- Already anticoagulated on apixaban -- Atorvastatin -- Aspirin Long-standing Atrial Fibrillation now with RVR: --Admit to PCU on a dilt drip -- Continue eliquis -- Maintain mag of 2.0 and potassium of 4.0 JAYCE: Creatinine was 1.49 on admission. Will hold irbesartan for now and avoid all nephrotoxic agents. Type II DM: -- Will hold metformin on admission and cover with lispro sliding scale BPH: Continue Flomax VTE Prophylaxis Home dose of apixaban was continued. Code: Full Code Discharge Plan TBD Consults Cardiology PROVIDER TO PROVIDER COMMUNICATION: Case discussed with Dr Zimmer at the time of admission I spent greater than 75 minutes in clinical time solely dedicated to the admission process for thispatient. This included time spent in review of the electronic medical record, review of labs, review of imaging, examining and evaluating the patient, counseling, treatment planning, placing orders, disease counseling and coordination of care. This excludes time reported with other services. Admission status Patient has no Admit to Inpatient or Initiate Observation Status order on this encounter. Devora Garcia MD 04/19/2023 2:44 documented in this encounter Procedure Notes * Ozzy Torres MD - 04/20/2023 0959 EDTProcedure(s): ELECTRICAL CARDIOVERSION Pre-Procedure Diagnose(s): Atypical atrial flutter (HCC-CMS) Post-Procedure Diagnose(s): Atrial fibrillation, currently in sinus rhythm [facility] PROCEDURE NOTE Procedure: Direct current cardioversion Date of Procedure: 04/20/23 Pre-procedure Diagnosis: Atrial fibrillation Post-procedure Diagnosis: Sinus rhythm Anesthesia/Sedation: MAC Procedure in Detail: The patient was brought into the procedure room in the fasting state. Verbal and written informed consent were obtained. After a proper level of sedation, external cardioversion was performed. The baseline rhyhtm was atrial fibrillation. A total of 1 attempt(s) was performed at a maximum energy of 200 J (biphasic). Cardioversion was successful in restoring sinus rhythm. Complications: None immediate Disposition and Condition: The patient was sent back to the original unit in stable condition. Plan: see post-procedure orders, continue anticoagulation and start dofetilide if recurrent AFL. Follow-up: Patient to follow up with Dr. Euceda in 4 weeks Ozzy Torres MD, PhD documented in this encounter Consult Notes * Ozzy Torres MD - 04/19/2023 1122 EDT [facility] Date of Admission: 04/18/2023 Date of Service: 04/19/2023 Reason for Consult: AFL Requesting Provider: Jose Rico MD MPH Primary Cardiology Provider: Malini Euceda Primary Care Provider: Jessie Jeong, 1950 72 y.o. male patient with personal history of MEE, T2D, HTN, , CAD and AFL Presented w/ CP and found to be hypertensive (SBP 180's) and to be in AFL w/ RVR. Rate control achieved w/ diltiazem, but intermittent non-conducted atrial beats w/ up to 3 s pauses. S/s onset was sudden - HR jumped from 50's to 130's. S/s improved w/ rate control. No recent illnesses other than mild COVID last month. No excessive ethanol. 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 Chronic dependent edema which improves over night. Patient denies CP, SOB, PND, edema, palpitations, near-syncope/syncope, claudication, focal deficits, bleeding, GI or s/s. Medications: Current Facility-Administered Medications Medication Route Frequency acetaminophen (TYLENOL) tablet 650 mg oral Q6H PRN apixaban (ELIQUIS) tablet 5 mg oral BID aspirin EC tablet 81 mg oral DAILY atorvastatin (LIPITOR) tablet 40 mg oral QPM dextrose 40% gel 15 g of glucose oral PRN dextrose 50 % solution 12.5 g intravenous PRN dilTIAZem (CARDIZEM) in D5W 125 mg/125 mL infusion intravenous CONTINUOUS insulin lispro (HUMALOG KWIKPEN) injection pen subcutaneous TID WC insulin lispro (HUMALOG KWIKPEN) injection pen subcutaneous QHS lidocaine (PF) 10 mg/mL (1 %) injection 2 mg intradermal PRN nitroglycerin (NITROSTAT) SL tablet 0.4 mg sublingual Q5 MINUTES PRN polyethylene glycol 3350 (MIRALAX) packet 17 g oral Daily PRN TAMSulosin (FLOMAX) capsule 0.4 mg oral DAILY Medications Prior to Admission Medication Sig Dispense Refill Last Dose apixaban (ELIQUIS) 5 mg tablet Take 1 Tablet by mouth 2 times daily. 180 Tablet 3 04/18/2023 atorvastatin (LIPITOR) 40 mg tablet Take 1 Tablet by mouth every evening. 90 Tablet 3 04/18/2023 clopidogreL (PLAVIX) 75 mg tablet Take 1 Tablet by mouth daily. (Patient not taking: Reported on 03/28/2023) 90 Tablet 3 Not Taking cyanocobalamin, vitamin B-12, 1,000 mcg capsule Take 1,000 mcg by mouth daily. losartan (COZAAR) 25 mg tablet Take 1 Tablet by mouth daily. 04/18/2023 metFORMIN (GLUCOPHAGE) 1,000 mg tablet Take 1 Tablet by mouth every morning. 04/18/2023 metFORMIN (GLUCOPHAGE) 1,000 mg tablet Take 0.5 Tablets by mouth every evening. 04/18/2023 nitroglycerin (NITROSTAT) 0.[address] 1 Tablet under the tongue every 5 minutes as needed for Chest Pain. (if needing to take 3rd tablet, call 911) 25 Tablet 5 Eklgd-8-FQG-EPA-Fish Oil (FISH OIL) 1,200 (144-216) mg capsule Take 1,200 mg by mouth daily. 04/18/2023 ONETOUCH ULTRA BLUE TEST STRIP test strips TEST TWICE DAILY ONETOUCH ULTRASOFT LANCETS TEST TWICE DAILY TAMSulosin (FLOMAX) 0.4 mg capsule Take 1 Capsule by mouth daily. 30 Capsule 11 04/18/2023 TRULICITY 0.75 mg/0.5 mL subcutaneous pen Inject 0.5 mL into the skin once a week. On Sundays Past Week Allergies: Patient has no known allergies. Family History: No premature CAD. Social History: .chelita reports that he has never smoked. He has never used smokeless tobacco. He reports current alcohol use. He reports that he does not use drugs. ROS: Performed; pertinent positives and negatives as mentioned above. OBJECTIVE Temp: [36.3 ??C (97.3 ??F)-36.3 ??C (97.4 ??F)] , Pulse: [91-132] , Resp: [9-20] , BP: (107-181)/(49-112) , SpO2: [93 %-97 %] Intake/Output Summary (Last 24 hours) at 04/19/2023 1122 Last data filed at 04/19/2023 0052 Gross per 24 hour Intake 1000 ml Output -- Net 1000 ml Diagnostic Data: Available in- and [id number] records including laboratory, cardiology and radiology studies reviewed. Laboratory Data Hematology: Lab Results Component Value Date WBC 6.45 04/19/2023 HGB 15.3 04/19/2023 PLT 178 04/19/2023 No results found for: FERRITIN, LABIRON Chemistry: Lab Results Component Value Date CREATININE 1.49 (H) 04/18/2023 CALCGFR 50 (L) 04/18/2023 BUN 18 04/18/2023 NA 141 04/18/2023 CL 102 04/18/2023 K 4.5 04/18/2023 MG 2.1 04/18/2023 LABALBU 4.7 04/18/2023 ALT 30 04/18/2023 AST 32 04/18/2023 ALKPHOS 108 04/18/2023 TBIL 0.5 04/18/2023 Cardiac: Lab Results Component Value Date TROPONINI 0.080 (HH) 04/19/2023 CRP <5.0 04/18/2023 Lipids: Lab Results Component Value Date CHOL 127 03/28/2023 HDL 43 03/28/2023 LDLBASE 58 03/28/2023 TRIG 130 03/28/2023 Endocrine: Lab Results Component Value Date TSH 7.75 (H) 04/18/2023 Cardiac/Imaging Data [facility] 08/2023: LAD 50 %. OM 50 %. RCA 50 %. Normal dFR. Event monitor 11/2021: 1 % AFL, avg rate 110 bpm. No pauses. Echocardiogram 08/2022: Normal LV and RV. Mild LAE. Mild (MG 15). NM Stress 09/2022: Normal perfusion and myocardial flow reserve. Telemetry: Aflutter, no critical pauses > 7 s. EKG: All prior EKG's reviewed. Baseline RBBB and LAFB and normal QT interval (427 ms) PHYSICAL EXAM General: NAD HEENT: Anicteric, MMM Neck: Supple, normal jugular venous pressure Chest: Nontender. Lungs: Clear to auscultation bilaterally, no rhonchi rales or wheezes CV: Tachy, irregular, no obvious murmurs Abdomen: Soft, nontender, nondistended, bowel sounds present, no bruits Extremities: No cyanosis or edema, 2+ radial pulse Skin: Warm and dry, no rashes. Neuro: Alert and oriented x3, grossly intact IMPRESSIONS 1. AFL w/ RVR. Symptomatic when tachycardic. Intermittent slow ventricular response w/ up to 3 s pauses on diltiazem drip. Anti-coagulated, no bleeding. 2. Myocardial injury due to tachycardia and accelerated HTN. No angina. RECOMMENDATIONS Continue anticoagulation (only missed one dose of Eliquis a couple weeks ago) DCCV would be an appropriate next step unless spontaneous conversion to sinus w/in the next 24 hr. Informed consent obtained by me. Continue diltiazem gtt to achieve resting HR <110; hold if > 7 s pauses and 4 - 6 hrs prior to DCCV. No need for stress testing MEE and, if needed, BP control can be addressed as outpatient I discussed the patient with Jose Rico MD MPH Ozzy Torres MD, PhD documented in this encounter ED Notes * Lynette Araujo, RN - 04/18/20232320 EDT 12 Lead EKG Performed by Lynette Araujo RN and shown to Izabella Zimmer,*. * Izabella Zimmer MD - 04/18/20232319 EDT Emergency Department Visit Medical Decision Making 72-year-old male with a history of type 2 diabetes, hypertension, hyperlipidemia with recent NSTEMI(10/2020) and atrial flutter for which he is on apixaban presents with chest pressure which began 2 hours prior to arrival. Patient states he felt chest pressure noted his heart rate was in the 130s as well as his blood pressure was elevated with a systolic in the 180s. Patient states he is typically bradycardic. No associated nausea or diaphoresis. Patient is concerned because when he had a NSTEMI it felt similar to the chest pressure he is experiencing currently. Patient states he felt chest pressure pain to his neck. Patient took nitro x1 with no relief of symptoms. At time of NSTEMI in 2020, patient had a peak troponin at 1.2. Patient also underwent a left heart catheterization which was notable for moderate disease multiple vessel however no clear culprit was noted and no stents were placed. Patient was treated medically. Patient then underwent a PET stress test (09/2022) which showed no perfusion defects and normal myocardial blood flow. Upon arrival to the [facility] part patient is EKG showed a sinus tachycardia 132. Right bundle branchblock. Left anterior fascicular block. T wave inversions in V1 through V4. Similar to prior EKG 08/27/2021 however at that time patient was in sinus bradycardia. Suspect 2-1 AV block. 15 mg of diltiazem given. Patient's heart rate in the 60s to 70s and irregular. Repeat EKG shows atrial fibrillation at 70 with right bundle branch block. Persistent T wave inversions in V1 through V4. Patient states chest pressure has markedly improved. Labs obtained. Creatinine slightly elevated 1.49 with prior creatinine on 09/17/2022 of 1.15. GFR is50. 1.5 L of IV fluids. After the first liter of fluid patient returned to heart rate in the 120s. Additional 15 mg of diltiazem given. Patient heart rate in the 50s to 60s. Patient does experience pauses of 3 to 5seconds noted on machine clothing replacer. TSH elevated 7.75. Free T4 within normal limits. Repeat troponin obtained 4 hours after onset of chest pain. Troponin slightly elevated 0.037. Unclear if patient had an NSTEMI or the level elevated troponin aspirin given. Consult with cardiology, Dr. Torres who recommended patient be admitted for further evaluation andtreatment. Patient again developed A-fib with RVR with heart rates in the 120s. Patient put on a diltiazem drip. Will admit to the ICU. Relevant Data as of 04/19/23 0536 e Apr 19, 2023 0026 TSH(!): 7.75 [KW] Relevant Data User Index [KW] Izabella Zimmer MD An EKG was obtained and independently interpreted. Laboratory data was reviewed. Medical Decision Making Acute renal insufficiency: acute illness or injury Atrial fibrillation with RVR (HCC-CMS) (HCC): acute illness or injury Elevated troponin: acute illness or injury Amount and/or Complexity of Data Reviewed External Data Reviewed: labs. Labs: ordered. Decision-making details documented in ED Course. ECG/medicine tests: ordered and independent interpretation performed. Decision- making details documented in ED Course. Risk OTC drugs. Prescription drug management. Decision regarding hospitalization. Final diagnoses: Atrial fibrillation with RVR (HCC-CMS) (HCC) Elevated troponin Acute renal insufficiency Disposition: Admitted Chief complaint: Chest pain HPI Ralph Jeong is a 72 y.o. male with a history of type 2 diabetes, hypertension, hyperlipidemia with recent NSTEMI (10/2020) and atrial flutter for which he is on apixaban presents with chest pressurewhich began 2 hours prior to arrival. Patient states he felt chest pressure noted his heart rate was in the 130s as well as his blood pressure was elevated with a systolic in the 180s. Patient stateshe is typically bradycardic. No associated nausea or diaphoresis. Patient is concerned because whenhe had a NSTEMI it felt similar to the chest pressure he is experiencing currently. Patient states he felt chest pressure pain to his neck. Patient took nitro x1 with no relief of symptoms. History was provided by: Patient Records reviewed include: Chart review including recent visit with cardiology on 03/28/2023 and prior labs Patient's pertinent PMH, FH, SH were reviewed and edited as necessary. Nursing notes reviewed. A medical screening exam was performed. Physical Exam BP 112/49 Pulse 91 Temp 36.3 ??C (97.3 ??F) (Oral) Resp 15 Ht 182.9 cm (72) Wt 100.3 kg (221 lb 1.6 oz) SpO2 94% BMI 29.99 kg/m?? Physical Exam Vitals and nursing note reviewed. Constitutional: General: He is not in acute distress. Appearance: Normal appearance. HENT: Head: Normocephalic and atraumatic. Right Ear: External ear normal. Left Ear: External ear normal. Nose: Nose normal. Mouth/Throat: Mouth: Mucous membranes are moist. Eyes: Extraocular Movements: Extraocular movements intact. Conjunctiva/sclera: Conjunctivae normal. Pupils: Pupils are equal, round, and reactive to light. Cardiovascular: Rate and Rhythm: Regular rhythm. Tachycardia present. Heart sounds: Normal heart sounds. Pulmonary: Effort: Pulmonary effort is normal. Breath sounds: Normal breath sounds. Abdominal: General: Bowel sounds are normal. Palpations: Abdomen is soft. There is no mass. Tenderness: There is no abdominal tenderness. Musculoskeletal: General: No swelling or deformity. Normal range of motion. Cervical back: Normal range of motion and neck supple. Skin: General: Skin is warm and dry. Neurological: General: No focal deficit present. Mental Status: He is alert and oriented to person, place, and time. Psychiatric: Mood and Affect: Mood normal. Behavior: Behavior normal. Procedures Procedures documented in this encounter Miscellaneous Notes * Plan of Care - Yoly Barnes - 04/21/2023 0959 EDT 04/21/23 0959 Medicare IM Notice IM notice status Patient received notification verbally and in writing while in hospital. IM notice given on admission? Yes * Plan of Care - Sotero Kaur RN - 04/20/2023 8045 EDT Problem: High Fall Risk: Goal: Patient will Remain Free of Falls due to Med. Side Effects Outcome: Ongoing Problem: High Fall Risk: Goal: Patient Will Remain Free from Fall-Related Injury Outcome: Ongoing Problem: Sensory: Goal: Ability to compensate for vision loss will be supported Outcome: Ongoing Problem: Delirium Prevention Management Goal: Mental status/cognition is maintained/returned to baseline Outcome: Ongoing Goal: Sensory Stimuli Reduction Outcome: Ongoing Goal: Early Mobilization Is Achieved Outcome: Ongoing Goal: Normal Sleep Promoted Outcome: Ongoing Problem: Daily Care Plan Goals Goal: Care Plan Documentation Outcome: Ongoing * Plan of Care - Sotero Kaur RN - 04/19/2023 2301 EDT Problem: High Fall Risk: Goal: Patient will Remain Free of Falls due to Med. Side Effects Outcome: Ongoing Problem: High Fall Risk: Goal: Patient Will Remain Free from Fall-Related Injury Outcome: Ongoing Problem: Sensory: Goal: Ability to compensate for vision loss will be supported Outcome: Ongoing Problem: Delirium Prevention Management Goal: Mental status/cognition is maintained/returned to baseline Outcome: Ongoing Goal: Sensory Stimuli Reduction Outcome: Ongoing Goal: Early Mobilization Is Achieved Outcome: Ongoing Goal: Normal Sleep Promoted Outcome: Ongoing Problem: Daily Care Plan Goals Goal: Care Plan Documentation Outcome: Ongoing * Plan of Care - Yoly Barnes - 04/19/2023 0916 EDT Initial Case Management/Social Work Assessment and Discharge Plan/Readmission Risk Assessment REASON FOR ADMISSION: Atrial fibrillation with RVR ([facility]) ([facility]) Patient understands reason for admission: (P) Yes PATIENT INFO VERIFIED: (P) PCP, Contact Info, Address Type of housing (single family, condo, apartment, penitentiary, single room occupancy, [facility] funded hotel room, group fpc) - Single level home Who does the patient live with? spouse Does the patient have access to their own bedroom/bathroom/kitchen - or is it shared with others? shared Name of housing complex (ex [employer], [facility], etc)- n/a Housing Authority/Managing Organization - n/a Community Care Providers (block and case maker, [facility] nurse, etc) name and contact information- n/a LIVING ARRANGEMENTS AND ACCESSIBILITY ISSUES: Living Arrangements: (P) Spouse / significant other Levels: (P) 1 Stairs to enter: (P) 3 Bathroom located on bedroom level?: (P) Yes What in home social supports are available to the patient? Family member(s) Is 24/7 care available? (P) Yes ADVANCED DIRECTIVES, POA &/or COLST IN PLACE: Healthcare Directive: Yes, patient has advance directive for healthcare treatment Type of Healthcare Directive: Durable power of animal feeder for health care Copy in Chart: Yes, previous copy on file @ [facility] DIRECTIVES FOR FINANCES: Directive For Finances: No TRANSPORTATION: Transportation: (P) Family Expected Discharge on IV Antibiotics: (P) No Transportation Additional Details: (P) spouse Final Discharge Destination: (P) home Patient expects to be discharged to: (P) home CULTURAL, ADVENTIST and/or LANGUAGE factors affecting health care/discharge planning: Spiritual/Cultural Requests: None Insurance Information: Medical Insurance: Yes Type of insurance: Medicare, Commercial insurance Commercial coverage: CBA Referred to patient financial services: No Nutrition: DISCHARGE RISK ASSESSMENT: (P) None of the above risks identified Total # selected above: Tentative plan to address the risk of re-hospitalization for those at HIGH MODERATE RISK: RAPT TOOL: Age: (P) >75 Gender: (P) Male Ambulation distance: (P) 2 or more blocks (600ft) Gait device: (P) None Community Services: (P) Home health, [facility], [facility]-none of one time a week Will you live with someone who will care for you?: (P) Yes RAPT Tool Score: (P) 10 Patient expects to be discharged to: (P) home SBIRT: FUNCTIONAL STATUS: Activities patient requires assistance: (P) None Assistive Devices: (P) None COMMUNITY RESOURCES/SUPPORTS: Primary Care Provider: Jessie Velasco PCP Verified: Specialists: (P) None Type of Home Health Services: (P) None DME Provider: Pharmacy: [facility] - [place], [place] - [address] [address] [facility] [place], [place] - [address] [facility] [address] [facility] [id number] [facility] [place], [place] [address] [facility] [address] [facility] [address] [facility] [address] [facility] [address] - [place], [place] - [address] [facility] [address] [facility] [address] Home Health: Declined HH Other: [facility] PL[facility]: CM confirmed demographics, pcp and pharmacy information. Patient reported he does have an AD and his spouse and their daughter Belem is the medical agents. Patient lives on one level and is very independent. He does not use any DME. Per patient he does not feel that he will need HH at this time. Patient is NPO today and will have a stress test, there is a chance he will be discharged today and his spouse will be his ride home. Yoly Barnes 04/19/2023 9:16 * Plan of Care - Yoly Barnes - 04/19/2023 0909 EDT 04/19/23 0909 Medicare IM Notice IM notice status Patient received notification verbally and in writing while in hospital. IM notice given on admission? Yes * Plan of Care - Gisel Flannery RN - 04/19/2023 0725 EDT Problem: Daily Care Plan Goals Goal: Care Plan Documentation Outcome: Ongoing Flowsheets (Taken 04/19/2023 0700) Area of Focus: Circulatory Status Goal This Shift: HR control Data: assumed care of pt 0700. A+O x3. Dilt gtt turned off this am ~0520. HR in 70-80s. NPO for a stress test later today. Action: trops trending up, stress test rescheduled for tomorrow. HR sustained in 130s- restarted dilt gtt at 10mg/hr. Response: dilt at 5 mg/hr- to be stopped at 0400 prior to cardioversion. VSS. GISEL FLANNERY RN 04/19/2023 7:25 documented in this encounter Plan of Treatment Upcoming Encounters Date Type Department Care Team (Late st Contact Info) Description 04/02/2024 11:15 EDT Telemedicine [facility] Urology - [address] [phone] David Bhatt, [address] [place] [address] [address] [place] [phone] 07/12/2024 12:30 EST Hospital Encounter [facility] [address] [facility] [address] [place] [address] [phone] Rodrigo Noyola MD [address] [place] [address] [phone] Paroxysmal atrial fibrillation ([facility]) 07/12/2024 12:30 EST - 07/12/2024 17:00 EST Surgery [facility] [address] [facility] [address] [place] [address] [phone] Rodrigo Noyola MD [address] [place] [phone] [facility] [[id number] (CPT??)] 07/23/2024 11:00 EST Office Visit [facility] [address] [place] [address] [id number] Malini Euceda MD [address] [place] [address] [phone] Pending Results Name Type Priority Associated Diagnoses Date /Time CARDIOVERSION Electrophysiology Routine Atrial fibrillation with RVR (HCC-CMS) 04/19/2023 12:46 EDT Scheduled Orders Name Type Priority Associated Diagnoses Orde r Schedule EKG 12-LEAD ECG Routine Every Morning @ 7:00 AM Every AM 7:00 Every AM 7:00 until discontinued starting 04/20/2023, 2 completed CARDIOVERSION Electrophysiology Routine Atrial fibrillation with RVR (HCC-CMS) One Time for 1 Occurrences starting 04/20/2023 until 04/20/2023 documented as of this encounter Procedures Procedure Name Priority Date/Time Associated Diagnosis Comments ECG REPORT - SCANNED 06/23/2023 9:22 EDT ECG REPORT - SCANNED 04/22/2023 13:52 EDT ECG REPORT - SCANNED 04/21/2023 10:24 EDT POCT GLUCOSE, INTERFACED Routine 04/21/2023 8:21 EDT ECG REPORT - SCANNED 04/21/2023 8:04 EDT EKG 12-LEAD Routine 04/21/2023 7:19 EDT COMPLETE BLOOD COUNT AND DIFFERENTIAL Routine 04/21/2023 5:37 EDT MAGNESIUM Routine 04/21/2023 5:37 EDT BASIC METABOLIC PANEL (BMP) Routine 04/21/2023 5:37 EDT POCT GLUCOSE, INTERFACED Routine 04/20/2023 20:57 EDT POCT GLUCOSE, INTERFACED Routine 04/20/2023 17:41 EDT POCT GLUCOSE, INTERFACED Routine 04/20/2023 12:32 EDT POCT GLUCOSE, INTERFACED Routine 04/20/2023 10:12 EDT EKG 12-LEAD Routine 04/20/2023 9:57 EDT ECG REPORT - SCANNED 04/20/2023 9:24 EDT EKG 12-LEAD Routine 04/20/2023 7:20 EDT COMPLETE BLOOD COUNT AND DIFFERENTIAL Routine 04/20/2023 6:00 EDT MAGNESIUM Routine 04/20/2023 6:00 EDT BASIC METABOLIC PANEL (BMP) Routine 04/20/2023 6:00 EDT POCT GLUCOSE, INTERFACED Routine 04/19/2023 20:29 EDT POCT GLUCOSE, INTERFACED Routine 04/19/2023 17:16 EDT ECG REPORT - SCANNED 04/19/2023 14:45 EDT TROPONIN I Routine 04/19/2023 12:07 EDT POCT GLUCOSE, INTERFACED Routine 04/19/2023 11:09 EDT HOLD SST Routine 04/19/2023 11:02 EDT HEPARIN LEVEL - UNFRACTIONATED HEPARIN STAT 04/19/2023 10:05 EDT ECG REPORT - SCANNED 04/19/2023 8:30 EDT POCT GLUCOSE, INTERFACED Routine 04/19/2023 7:58 EDT COMPLETE BLOOD COUNT Routine 04/19/2023 6:49 EDT TROPONIN I Routine 04/19/2023 4:46 EDT POCT URINE DIPSTICK, VISUAL READ STAT 04/19/2023 1:35 EDT TROPONIN I STAT 04/19/2023 1:32 EDT EKG 12-LEAD Routine 04/18/2023 23:56 EDT TROPONIN I STAT 04/18/2023 23:27 EDT COMPLETE BLOOD COUNT AND DIFFERENTIAL STAT 04/18/2023 23:27 EDT C REACTIVE PROTEIN STAT 04/18/2023 23 :27 EDT TSH STAT 04/18/2023 23:27 EDT T4 FREE Add-On 04/18/2023 23:27 EDT MAGNESIUM STAT 04/18/2023 23:27 EDT COMPREHENSIVE METABOLIC PANEL (CMP) STAT 04/18/2023 23:27 EDT EKG 12-LEAD STAT 04/18/2023 23:15 EDT documented in this encounter Results * ECG REPORT - SCANNED (06/23/2023 9:22 EDT) 06/23/2023 9:22 EDT Scan 2 Sheet Combining Operator PROCEDURE/MINOR KIERSTEN GICAL ORDERABLES * ECG REPORT - SCANNED (04/22/2023 13:52 EDT) 04/22/2023 13:5 2 EDT Scan 2 Sheet Combining Operator PROCEDURE/MINOR KIERSTEN GICAL ORDERABLES * ECG REPORT - SCANNED (04/21/2023 10:24 EDT) 04/21/2023 10:2 4 EDT Scan 2 Sheet Combining Operator PROCEDURE/MINOR KIERSTEN GICAL ORDERABLES * (ABNORMAL) POCT GLUCOSE, INTERFACED (04/21/2023 8:21 EDT) [facility] Glucose, POC 118(H) 70 - 100 mg/dL 04/21/2023 8:22 EDT [facility] HN LAB POC COMMENT (GLUCOSE) Test Performed in [facility] 04/21/2023 8:22 EDT [facility] Blood CAPILLARY BLOOD / Unknown 04/21/2023 8:21 EDT 04/21/2023 8:22 EDT Devora Garcia MD POINT OF CARE AALIYAH T ORDERABLES [facility] [address] [place] [address] * ECG REPORT - SCANNED (04/21/2023 8:04 EDT) 04/21/2023 8:04 EDT Scan 2 Sheet Combining Operator PROCEDURE/MINOR KIERSTEN GICAL ORDERABLES * EKG 12-LEAD (04/21/2023 7:19 EDT) 04/21/2023 7:19 EDT Narrative [facility] - 04/21/2023 7:59 EDT ? [facility] ? Test Date: ?2023-04-21 Pat Name: ? RALPH JEONG ?Department: ? Room: ? 309 Gender: ? Male ? 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 CC : ?1950 ? Requested By: KEESHA Angel Order Number: [id number] ? Reading : ?? OZZY TORRES MD ? Measurements Intervals ?[place] ? Rate: ? 57 ? P: ?68 MD: ? 196 ?QRS: ?-40 QRSD: ? 150 ?T: ?137 QT: ? 450 ? QTc: ?438 ? Interpretive Statements Sinus bradycardia with marked sinus arrhythmia Left axis deviation Right bundle branch block Nonspecific ST changes Compared to ECG 04/20/2023 09:57:22 No significant changes I reviewed the tracing and have either agreed or edited the findings in this report. Electronically Signed On 04-21-2023 7:59:21 EDT by OZZY TORRES MD. Procedure Note Ozzy Torres MD - 04/21/2023 [facility] Test Date: 2023-04-21 Pat Name: RALPH JEONG Department: Room: 309 Gender: Male Cable Driller: CC : 1950 Requested By: KEESHA Angel Order Number: [id number] Reading MD: OZZY TORRES MD Measurements Intervals [place] Rate: 57 P: 68 MD: 196 QRS: -40 QRSD: 150 T: 137 QT: 450 QTc: 438 Interpretive Statements Sinus bradycardia with marked sinus arrhythmia Left axis deviation Right bundle branch block Nonspecific ST changes Compared to ECG 04/20/2023 09:57:22 No significant changes I reviewed the tracing and have either agreed or edited the findings inthis report. Electronically Signed On 04-21-2023 7:59:21 EDT by OZZY CHRISTENSEN. Jose Rico MD MPH CARDIAC ECG ORDER BALDOMERO Performing Organization Address City/[facility]/ZIP Co de Phone Number [facility] * MAGNESIUM (04/21/2023 5:37 EDT) Pathologist [facility] Magnesium 2.1 1.7 - 2.8 mg/dL 04/21/2023 6:40 EDT [facility] Blood VENOUS BLOOD / Unknown Venipuncture / Unknown 04/21/2023 5:37 EDT 04/21/2023 6:10 EDT Jose Rico MD MPH CHEMISTRY & BLOOD GAS ORDERABLES Performing Organization Address City/[facility]/ZIP Co de Phone Number [facility] [address] [place] [address] * COMPLETE BLOOD COUNT AND DIFFERENTIAL (04/21/2023 5:37 EDT) WBC 5.27 4.00 - 10.40 K/cmm 04/21/2023 6:14 EDT [facility] RBC 5.19 4.36 - 5.78 M/cmm 04/21/2023 6:14 EDT [facility] Hemoglobin 15.4 13.8 - 17.3 g/dL 04/21/2023 6:14 EDT [facility] HCT 46.7 39.5 - 50.2 % 04/21/2023 6:14 [facility] MCV 90 81 - 95 fL 04/21/2023 6:14 [facility] MCH 29.7 27.6 - 33.0 pg 04/21/2023 6:14 [facility] MCHC 33.0 32.8 - 36.4 g/dL 04/21/2023 6:14 [facility] RDW-CV 13.3 <14.2 % 04/21/2023 6:14 [facility] RDW-SD 44.2 <46.0 fl 04/21/2023 6:14 [facility] PLT 203 141 - 377 K/cmm 04/21/2023 6:14 [facility] MPV 9.5 9.5 - 12.7 fL 04/21/2023 6:14 [facility] % Neutrophils 61.8 % 04/21/2023 6:14 [facility] % Lymphocytes 25.0 % 04/21/2023 6:14 [facility] % Monocytes 8.2 % 04/21/2023 6:14 [facility] % Eosinophils 4.2 % 04/21/2023 6:14 [facility] % Basophils 0.6 % 04/21/2023 6:14 [facility] % Immature Grans 0.2 % 04/21/20 6:14 [facility] Absolute Neutrophils 3.26 2.20 - 8.85 K/cmm 04/21/2023 6:14 [facility] Absolute Lymphocytes 1.32 1.09 - 3.30 K/cmm 04/21/2023 6:14 [facility] Absolute Monocytes 0.43 0.10 - 0.80 K/cmm 04/21/2023 6:14 [facility] Absolute Eosinophils 0.22 0.03 - 0.61 K/cmm 04/21/2023 6:14 [facility] ABS Basophils 0.03 0.01 - 0.11 K/cmm 04/21/2023 6:14 [facility] Absolute Immature Grans 0.01 0.00 - 0.06 K/cmm 04/21/2023 6:14 [facility] Type of Differential: Auto 04/21/2023 6:14 [facility] Blood VENOUS BLOOD / Unknown Venipuncture / Unknown 04/21/2023 5:37 EDT 04/21/2023 6:10 EDT Jose Rico MD MPH PACKAGES & DNA MD OBE ORDERABLES [facility] [address] [place] [address] * (ABNORMAL) BASIC METABOLIC PANEL (BMP) (04/21/2023 5:37 EDT) Sodium 140 136 - 145 mmol/L 04/21/2023 6:40 [facility] Potassium 4.6 3.5 - 5.0 mmol/L 04/21/2023 6:40 [facility] Chloride 105 96 - 110 mmol/L 04/21/2023 6:40 [facility] CO2 Total 25 22 - 32 mmol/L 04/21/2023 6:40 [facility] Anion Gap 10 5 - 14 mmol/L 04/21/2023 6:40 [facility] Glucose 107(H) 70 - 99 mg/dl 04/21/2023 6:40 [facility] Calcium 9.4 8.5 - 10.5 mg/dL 04/21/2023 6:40 [facility] BUN 17 10 - 26 mg/dL 04/21/2023 6:40 [facility] Creatinine 1.25 0.66 - 1.25 mg/dL 04/21/2023 6:40 [facility] eGFR 61 >60 mL/min/1.73 m2 04/21/2023 6:40 [facility] Blood VENOUS BLOOD / Unknown Venipuncture / Unknown 04/21/2023 5:37 EDT 04/21/2023 6:10 EDT Jose Rico MD MPH CHEMISTRY & BLOOD GAS ORDERABLES Performing Organization Address [facility] Co de Phone Number [facility] [address] [place] [address] * (ABNORMAL) POCT GLUCOSE, INTERFACED (04/20/2023 20:57 EDT) Glucose, POC 157(H) 70 - 100 mg/dL 04/20/2023 20:58 EDT [facility] HN LAB POC COMMENT (GLUCOSE) Test Performed in [facility] 04/20/2023 20:58 EDT [facility] Blood CAPILLARY BLOOD / Unknown 04/20/2023 20:57 EDT 04/20/2023 20:58 EDT Devora Garcia MD POINT OF CARE AALIYAH T ORDERABLES Performing Organization Address [facility] de Phone [facility] [address] [place] [address] * POCT GLUCOSE, INTERFACED (04/20/2023 17:41 EDT) Glucose, POC 84 70 - 100 mg/dL 04/20/2023 17:42 EDT [facility] HN LAB POC COMMENT (GLUCOSE) Test Performed in [facility] 04/20/2023 17:42 EDT [facility] Blood CAPILLARY BLOOD / Unknown 04/20/2023 17:41 EDT 04/20/2023 17:42 EDT Devora Garcia MD POINT OF CARE AALIYAH T ORDERABLES Performing Organization Address [facility] Co de Phone Number [facility] [address] [place] [address] * (ABNORMAL) POCT GLUCOSE, INTERFACED (04/20/2023 12:32 EDT) Glucose, POC 210(H) 70 - 100 mg/dL 04/20/2023 12:33 EDT [facility] HN LAB POC COMMENT (GLUCOSE) Test Performed in [facility] 04/20/2023 12:33 EDT [facility] Blood CAPILLARY BLOOD / Unknown 04/20/2023 12:32 EDT 04/20/2023 12:33 EDT Devora Garcia MD POINT OF CARE [facility] T ORDERABLES Performing Organization Address [facility] Co de Phone Number [facility] [address] [place] [address] * (ABNORMAL) POCT GLUCOSE, INTERFACED (04/20/2023 10:12 EDT) Glucose, POC 144(H) 70 - 100 mg/dL 04/20/2023 10:13 EDT [facility] HN LAB POC COMMENT (GLUCOSE) Test Performed in [facility] 04/20/2023 10:13 EDT [facility] Blood CAPILLARY BLOOD / Unknown 04/20/2023 10:12 EDT 04/20/2023 10:13 EDT Devora Garcia MD POINT OF CARE AALIYAH T ORDERABLES Performing Organization Address [facility]/ZIP Co de Phone Number [facility] [address] [place] [address] * EKG 12-LEAD (04/20/2023 9:57 EDT) 04/20/2023 9:57 EDT Narrative [facility] - 04/21/2023 10:18 EDT ? [facility] ? Test Date: ?2023-04-20 Pat Name: ? RALPH JEONG ?Department: ? Room: ? 309 Gender: ? Male ? 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 SR : ?1950 ? Requested By: JAZMYNE PERRY Order Number: [id number] ? Reading MD: ?? OZZY TORRES MD ? Measurements Intervals ?[place] ? Rate: ? 85 ? P: ?62 MD: ? 184 ?QRS: ?-59 QRSD: ? 140 ?T: ?59 QT: ? 398 ? QTc: ?473 ? Interpretive Statements Sinus rhythm with marked sinus arrhythmia Right bundle branch block Left anterior fascicular block Bifascicular block Compared to ECG 04/20/2023 07:20:47 Atrial flutter no longer present Bifascicular block still present I reviewed the tracing and have either agreed or edited the findings in this report. Electronically Signed On 04-21-2023 10:18:47 EDT by OZZY TORRES MD. Procedure Note Ozzy Torres MD - 04/21/2023 [facility] Test Date: 2023-04-20 Pat Name: RALPH JEONG Department: Room: 309 Gender: Male Cable Driller: : 1950 Requested By: JAZMYNE PERRY Order Number: [id number] Reading MD: OZZY TORRES MD Measurements Intervals [place] Rate: 85 P: 62 MD: 184 QRS: -59 QRSD: 140 T: 59 QT: 398 QTc: 473 Interpretive Statements Sinus rhythm with marked sinus arrhythmia Right bundle branch block Left anterior fascicular block Bifascicular block Compared to ECG 04/20/2023 07:20:47 Atrial flutter no longer present Bifascicular block still present I reviewed the tracing and have either agreed or edited the findings inthis report. Electronically Signed On 04-21-2023 10:18:47 EDT by OZZY CHRISTENSEN. Colton Terry MD CARDIAC ECG ORDERABL ES [facility] * ECG REPORT - SCANNED (04/20/2023 9:24 EDT) 04/20/2023 9:24 EDT Scan 2 Sheet Combining Operator PROCEDURE/MINOR KIERSTEN GICAL ORDERABLES * EKG 12-LEAD (04/20/2023 7:20 EDT) 04/20/2023 7:20 EDT [facility]ative [facility]04/20/2023 9:19 EDT ? [facility] ? Test Date: ?2023-04-20 Pat Name: ? RALPH JEONG ?Department: ? Room: ? 309 Gender: ? Male ? 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 JW : ?1950 ? Requested By: KEESHA Angel Order Number: [id number] ? Reading MD: ?? OZZY TORRES MD ? Measurements Intervals ?[place] ? Rate: ? 105 ?P: ?-85 MD: ?QRS: ?-65 QRSD: ? 136 ?T: ?110 QT: ? 322 ? QTc: ?425 ? Interpretive Statements Atrial flutter with variable AV block Right bundle branch block Left anterior fascicular block Bifascicular block Compared to ECG 04/18/2023 23:56:22 No significant changes I reviewed the tracing and have either agreed or edited the findings in this report. Electronically Signed On 04-20-2023 9:19:05 EDT by OZZY TORRES MD. Procedure Note Ozzy Torres MD - 04/20/2023 [facility] Test Date: 2023-04-20 Pat Name: RALPH JEONG Department: Room: 309 Gender: Male Cable Driller: SHANNON : 1950 Requested By: KEESHA Angel Order Number: [id number] Rita MD: OZZY TORRES MD Measurements Intervals [place] Rate: 105 P: -85 MD: QRS: -65 QRSD: 136 T: 110 QT: 322 QTc: 425 Interpretive Statements Atrial flutter with variable AV block Right bundle branch block Left anterior fascicular block Bifascicular block Compared to ECG 04/18/2023 23:56:22 No significant changes I reviewed the tracing and have either agreed or edited the findings inthis report. Electronically Signed On 04-20-2023 9:19:05 EDT by OZZY CHRISTENSEN. Jose Rico MD MPH CARDIAC ECG ORDER BALDOMERO [facility] * MAGNESIUM (04/20/2023 6:00 EDT) Pathologist [facility] Magnesium 1.7 1.7 - 2.8 mg/dL 04/20/2023 6:33 EDT [facility] Blood VENOUS BLOOD / Unknown Venipuncture / Unknown 04/20/2023 6:00 EDT 04/20/2023 6:06 EDT Jose Rico MD MPH CHEMISTRY & BLOOD GAS ORDERABLES [facility] [address] [place] [address] * (ABNORMAL) COMPLETE BLOOD COUNT AND DIFFERENTIAL (04/20/2023 6:00 EDT) Pathologist [facility] WBC 6.63 4.00 - 10.40 K/cmm 04/20/2023 6:10 [facility] RBC 5.50 4.36 - 5.78 M/cmm 04/20/2023 6:10 [facility] Hemoglobin 16.6 13.8 - 17.3 g/dL 04/20/2023 6:10 [facility] HCT 48.7 39.5 - 50.2 % 04/20/2023 6:10 [facility] MCV 89 81 - 95 fL 04/20/2023 6:10 [facility] MCH 30.2 27.6 - 33.0 pg 04/20/2023 6:10 [facility] MCHC 34.1 32.8 - 36.4 g/dL 04/20/2023 6:10 [facility] RDW-CV 13.6 <14.2 % 04/20/2023 6:10 [facility] RDW-SD 44.0 <46.0 fl 04/20/2023 6:10 [facility] PLT 186 141 - 377 K/cmm 04/20/2023 6:10 [facility] MPV 9.3(L) 9.5 - 12.7 fL 04/20/2023 6:10 [facility] % Neutrophils 67.2 % 04/20/2023 6:10 [facility] % Lymphocytes 20.5 % 04/20/2023 6:10 [facility] % Monocytes 8.4 % 04/20/2023 6:10 [facility] % Eosinophils 3.2 % 04/20/2023 6:10 [facility] % Basophils 0.5 % 04/20/2023 6:10 [facility] % Immature Grans 0.2 % 04/20/20 6:10 [facility] Absolute Neutrophils 4.46 2.20 - 8.85 K/cmm 04/20/2023 6:10 [facility] Absolute Lymphocytes 1.36 1.09 - 3.30 K/cmm 04/20/2023 6:10 [facility] Absolute Monocytes 0.56 0.10 - 0.80 K/cmm 04/20/2023 6:10 [facility] Absolute Eosinophils 0.21 0.03 - 0.61 K/cmm 04/20/2023 6:10 [facility] ABS Basophils 0.03 0.01 - 0.11 K/cmm 04/20/2023 6:10 [facility] Absolute Immature Grans 0.01 0.00 - 0.06 K/cmm 04/20/2023 6:10 [facility] Type of Differential: Auto 04/20/2023 6:10 [facility] Blood VENOUS BLOOD / Unknown Venipuncture / Unknown 04/20/2023 6:00 EDT 04/20/2023 6:07 EDT Jose Rico MD MPH PACKAGES & DNA MD OBE ORDERABLES [facility] [address] [place] [address] * (ABNORMAL) BASIC METABOLIC PANEL (BMP) (04/20/2023 6:00 EDT) Sodium 139 136 - 145 mmol/L 04/20/2023 6:33 EDT [facility] Potassium 4.2 3.5 - 5.0 mmol/L 04/20/2023 6:33 [facility] Chloride 105 96 - 110 mmol/L 04/20/2023 6:33 [facility] CO2 Total 23 22 - 32 mmol/L 04/20/2023 6:33 [facility] Anion Gap 11 5 - 14 mmol/L 04/20/2023 6:33 [facility] Glucose 121(H) 70 - 99 mg/dl 04/20/2023 6:33 [facility] Calcium 9.0 8.5 - 10.5 mg/dL 04/20/2023 6:33 [facility] BUN 19 10 - 26 mg/dL 04/20/2023 6:33 [facility] Creatinine 1.15 0.66 - 1.25 mg/dL 04/20/2023 6:33 [facility] eGFR 68 >60 mL/min/1.73 m2 04/20/2023 6:33 [facility] Blood VENOUS BLOOD / Unknown Venipuncture / Unknown 04/20/2023 6:00 EDT 04/20/2023 6:06 EDT Jose Rico MD MPH CHEMISTRY & BLOOD GAS ORDERABLES Performing Organization Address City/State/[facility] Co de Phone Number [facility] [address] [place] [address] * (ABNORMAL) POCT GLUCOSE, INTERFACED (04/19/2023 20:29 EDT) Glucose, POC 126(H) 70 - 100 mg/dL 04/19/2023 20:30 EDT [facility] HN LAB POC COMMENT (GLUCOSE) Test [facility] BLOOD / Unknown 04/19/2023 20:29 EDT 04/19/2023 20:30 EDT Devora Garcia MD POINT OF CARE AALIYAH T ORDERABLES [facility] [address] [place] [address] * (ABNORMAL) POCT GLUCOSE, INTERFACED (04/19/2023 17:16 EDT) Glucose, POC 105(H) 70 - 100 mg/dL 04/19/2023 17:17 EDT [facility] HN LAB POC COMMENT (GLUCOSE) Test Performed in [facility] 04/19/2023 17:17 EDT [facility] Blood CAPILLARY BLOOD / Unknown 04/19/2023 17:16 EDT 04/19/2023 17:17 EDT Devora Garcia MD POINT OF CARE AALIYAH T ORDERABLES Performing Organization Address City/[facility]/ZIP Co de Phone Number [facility] [address] [place] [address] * ECG REPORT - SCANNED (04/19/2023 14:45 EDT) 04/19/2023 14:4 5 EDT Scan 2 Sheet Combining Operator PROCEDURE/MINOR KIERSTEN GICAL ORDERABLES * (ABNORMAL) TROPONIN I (04/19/2023 12:07 EDT) Pathologist [facility] Troponin I (ng/mL) 0.054(HH) <0.034 ng/mL 04/19/2023 12:41 EDT [facility] Blood VENOUS BLOOD / Unknown Venipuncture / Unknown 04/19/2023 12:07 EDT 04/19/2023 12:12 EDT Narrative [facility] - 04/19/2023 12:41 EDT The results of this assay can be falsely lowered due to the consumption of Biotin. Devora Garcia MD CHEMISTRY & BLOOD GAS ORDERABLES Performing Organization Address City/[facility]/ZIP Co de Phone Number [facility] [address] [place] [address] * (ABNORMAL) POCT GLUCOSE, INTERFACED (04/19/2023 11:09 EDT) [facility] Glucose, POC 133(H) 70 - 100 mg/dL 04/19/2023 11:11 EDT [facility] HN LAB POC COMMENT (GLUCOSE) Test Performed in [facility] 04/19/2023 11:11 EDT [facility] Blood CAPILLARY BLOOD / Unknown 04/19/2023 11:09 EDT 04/19/2023 11:11 EDT Devora Garcia MD POINT OF CARE AALIYAH T ORDERABLES Performing Organization Address [facility] Co de Phone Number [facility] [address] [place] [address] * HOLD SST (04/19/2023 11:02 EDT) [facility] Hold Hold 04/19/2023 12:15 EDT [facility] Blood VENOUS BLOOD / Unknown 04/19/2023 11:02 EDT 04/19/2023 11:02 EDT Jose Rico MD MPH LAB INFO SERVICE AND SUPPORT & PHONE RESULT Performing Organization Address [facility] Co de Phone Number [facility] [address] [place] [address] * (ABNORMAL) HEPARIN LEVEL - UNFRACTIONATED HEPARIN (04/19/2023 10:05 EDT) [facility] Heparin Level-UFH 1.18(HH) Therapeutic Range: 0.30 - 0.70 IU/mL 04/19/2023 11:11 EDT [facility] Comment: Recent or concurrent use of oral direct Xa inhibitors (e.g. apixaban or rivaroxaban) will result in an elevated heparin level. Check the following to confirm result accurately reflects the patient's unfractionated heparin level: 1. Blood sample obtained from a non-heparinized line and/or line was properly flushed. 2. Collection site was distal to heparin infusion. 3. Concentration of heparin infusion is correct. 4. Infusion rate of heparin is correct. Blood VENOUS BLOOD / Unknown Venipuncture / Unknown 04/19/2023 10:05 EDT 04/19/2023 10:13 EDT Jose Rico MD MPH HEMATOLOGY & PF4 ORDERABLES Performing Organization Address [facility] Co de Phone Number [facility] [address] [place] [address] * ECG REPORT - SCANNED (04/19/2023 8:30 EDT) 04/19/2023 8:30 EDT Scan 2 Sheet Combining Operator PROCEDURE/MINOR KIERSTEN GICAL ORDERABLES * (ABNORMAL) POCT GLUCOSE, INTERFACED (04/19/2023 7:58 EDT) Glucose, POC 110(H) 70 - 100 mg/dL 04/19/2023 7:59 EDT [facility] HN LAB POC COMMENT (GLUCOSE) Test Performed in [facility] 04/19/2023 7:59 EDT [facility] Blood CAPILLARY BLOOD / Unknown 04/19/2023 7:58 EDT 04/19/2023 7:59 EDT Devora Garcia MD POINT OF CARE AALIYAH T ORDERABLES Performing Organization Address [facility] Co de Phone Number [facility] [address] [place] [address] * (ABNORMAL) COMPLETE BLOOD COUNT (04/19/2023 6:49 EDT) WBC 6.45 4.00 - 10.40 K/cmm 04/19/2023 7:00 EDT [facility] RBC 5.06 4.36 - 5.78 M/cmm 04/19/2023 7:00 EDT [facility] Hemoglobin 15.3 13.8 - 17.3 g/dL 04/19/2023 7:00 EDT [facility] HCT 45.5 39.5 - 50.2 % 04/19/2023 7:00 EDT [facility] MCV 90 81 - 95 fL 04/19/2023 7:00 EDT [facility] MCH 30.2 27.6 - 33.0 pg 04/19/2023 7:00 EDT [facility] MCHC 33.6 32.8 - 36.4 g/dL 04/19/2023 7:00 EDT [facility] RDW-CV 13.5 <14.2 % 04/19/2023 7:00 EDT [facility] RDW-SD 44.1 <46.0 fl 04/19/2023 7:00 EDT [facility] PLT 178 141 - 377 K/cmm 04/19/2023 7:00 EDT [facility] MPV 9.3(L) 9.5 - 12.7 fL 04/19/2023 7:00 EDT [facility] Blood VENOUS BLOOD / Unknown Venipuncture / Unknown 04/19/2023 6:49 EDT 04/19/2023 6:53 EDT Devora Garcia MD HEMATOLOGY & PF4 ORDERABLES [facility] [address] [place] [address] * (ABNORMAL) TROPONIN I (04/19/2023 4:46 EDT) Troponin I (ng/mL) 0.080(HH) <0.034 ng/mL 04/19/2023 5:44 EDT [facility] Blood VENOUS BLOOD / Unknown Venipuncture / Unknown 04/19/2023 4:46 EDT 04/19/2023 4:50 EDT Narrative [facility] - 04/19/2023 5:44 EDT The results of this assay can be falsely lowered due to the consumption of Biotin. Devora Garcia MD CHEMISTRY & BLOOD GAS ORDERABLES Performing Organization Address City/[facility]/ZIP Co de Phone Number [facility] [address] [place] [address] * (ABNORMAL) POCT URINE DIPSTICK, VISUAL READ (04/19/2023 1:35 EDT) Color, UA Light Yellow Clarity, UA Clear Glucose, UA Negative . mg/dL Bilirubin, UA Negative Negative Ketones, UA Negative . mg/dL Spec Grav, UA 1.010 1.005 - 1.030 Blood, UA Trace(A) Negative pH, UA 6.5 4.6 - 8.0 Protein, UA 5 Trace . mg/dL Urobilinogen, UA 0.2 0.2 - 1.0 E.U./dL Nitrite, UA Negative . Leuk Esterase Trace(A) Negative Comment Urine URINE SPECIMEN OBTAINED BY CLEAN CATCH PROCEDURE / Unknown 04/19/2023 1:35 EDT Izabella Zimmer MD POINT OF CARE TEST ORDERABLES * (ABNORMAL) TROPONIN I (04/19/2023 1:32 EDT) Pathologist [facility] Troponin I (ng/mL) 0.037(HH) <0.034 ng/mL 04/19/2023 2:11 EDT [facility] Blood VENOUS BLOOD / Unknown Venipuncture / Unknown 04/19/2023 1:32 EDT 04/19/2023 1:34 EDT Narrative [facility] - 04/19/2023 2:11 EDT The results of this assay can be falsely lowered due to the consumption of Biotin. Izabella Zimmer MD CHEMISTRY & BL OOD GAS ORDERABLES Performing Organization Address City/[facility]/ZIP Co de Phone Number [facility] [address] [place] [address] * EKG 12-LEAD (04/18/2023 23:56 EDT) 04/18/2023 23:5 6 EDT Narrative [facility] - 04/19/2023 14:33 EDT ? [facility] ? Test Date: ?2023-04-18 Pat Name: ? RALPH JEONG ?Department: ? Room: ? 309 Gender: ? Male ? 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 KET : ?1950 ? Requested By: ELO PAYTON Order Number: [id number] ? Reading MD: ?? OZZY TORRES MD ? Measurements Intervals ?[place] ? Rate: ? 70 ? P: ? MD: ?QRS: ?-40 QRSD: ? 154 ?T: ?98 QT: ? 434 ? QTc: ?468 ? Interpretive Statements Atrial fibrillation Left axis deviation Right bundle branch block Compared to ECG 04/18/2023 23:55:49 Ventricular premature complex(es) no longer present I reviewed the tracing and have either agreed or edited the findings in this report. Electronically Signed On 04-19-2023 14:33:32 EDT by OZZY TORRES MD. Procedure Note Ozzy Torres MD - 04/19/2023 [facility] Test Date: 2023-04-18 Pat Name: RALPH JEONG Department: Room: 309 Gender: Male Cable Driller: MARTY : 1950 Requested By: ELO PAYTON Order Number: [id number] Reading MD: OZZY TORRES MD Measurements Intervals [place] Rate: 70 P: MD: QRS: -40 QRSD: 154 T: 98 QT: 434 QTc: 468 Interpretive Statements Atrial fibrillation Left axis deviation Right bundle branch block Compared to ECG 04/18/2023 23:55:49 Ventricular premature complex(es) no longer present I reviewed the tracing and have either agreed or edited the findings inthis report. Electronically Signed On 04-19-2023 14:33:32 EDT by OZZY CHRISTENSEN. Devora Garcia MD CARDIAC ECG ORDER [place] [facility] * T4 FREE (04/18/2023 23:27 EDT) [facility] T4, Free 1.0 0.8 - 2.2 ng/dL 04/19/2023 1:52 EDT [facility] Blood VENOUS BLOOD / Unknown Venipuncture / Unknown 04/18/2023 23:27 EDT 04/18/2023 23:30 EDT Izabella Zimmer MD CHEMISTRY & BL OOD GAS ORDERABLES Performing Organization Address [facility] Phone Number [facility] [address] [place] [address] * (ABNORMAL) TSH (04/18/2023 23:27 EDT) Pathologist [facility] TSH 7.75(H) 0.47 - 4.68 mIU/L 04/19/2023 0:20 EDT [facility] Blood VENOUS BLOOD / Unknown Venipuncture / Unknown 04/18/2023 23:27 EDT 04/18/2023 23:30 EDT Narrative [facility] - 04/19/2023 0:20 EDT The results of this assay can be falsely lowered due to the consumption of Biotin. Izabella Zimmer MD CHEMISTRY & BL OOD GAS ORDERABLES Performing Organization Address [facility] [address] [place] [address] * TROPONIN I (04/18/2023 23:27 EDT) Pathologist [facility] Troponin I (ng/mL) <0.034 <0.034 ng/mL 04/19/2023 0:00 EDT [facility] Blood VENOUS BLOOD / Unknown Venipuncture / Unknown 04/18/2023 23:27 EDT 04/18/2023 23:30 EDT Narrative [facility] - 04/19/2023 0:00 EDT The results of this assay can be falsely lowered due to the consumption of Biotin. Izabella Zimmer MD CHEMISTRY & BL OOD GAS ORDERABLES Performing Organization Address [facility]/ZIP Co de Phone Number [facility] [address] [place] [address] * MAGNESIUM (04/18/2023 23:27 EDT) Pathologist [facility] Magnesium 2.1 1.7 - 2.8 mg/dL 04/18/2023 23:52 EDT [facility] Blood VENOUS BLOOD / Unknown Venipuncture / Unknown 04/18/2023 23:27 EDT 04/18/2023 23:30 EDT Izabella Zimmer MD CHEMISTRY & BL OOD GAS ORDERABLES Performing Organization Address [facility] Co de Phone Number [facility] [address] [place] [address] * C REACTIVE PROTEIN (04/18/2023 23:27 EDT) [facility] C-Reactive Protein <5.0 <10.0 mg/L 04/18/2023 23:52 EDT [facility] Blood VENOUS BLOOD / Unknown Venipuncture / Unknown 04/18/2023 23:27 EDT 04/18/2023 23:30 EDT Izabella Zimmer MD CHEMISTRY & BL OOD GAS ORDERABLES Performing Organization Address City/[facility]/ZIP Co de Phone Number [facility] [address] [place] [address] * (ABNORMAL) COMPREHENSIVE METABOLIC PANEL (CMP) (04/18/2023 23:27 EDT) Pathologist [facility] Sodium 141 136 - 145 mmol/L 04/18/2023 23:52 EDT [facility] Potassium 4.5 3.5 - 5.0 mmol/L 04/18/2023 23:52 EDT [facility] Chloride 102 96 - 110 mmol/L 04/18/2023 23:52 EDT [facility] CO2 Total 28 22 - 32 mmol/L 04/18/2023 23:52 EDT [facility] Glucose 143(H) 70 - 99 mg/dl 04/18/2023 23:52 EDT [facility] BUN 18 10 - 26 mg/dL 04/18/2023 23:52 [facility] Creatinine 1.49(H) 0.66 - 1.25 mg/dL 04/18/2023 23:52 [facility] eGFR 50(L) >60 mL/min/1.7 3m2 04/18/2023 23:52 [facility] Total Protein 7.5 6.3 - 8.2 g/dL 04/18/2023 23:52 [facility] Albumin 4.7 3.4 - 4.9 g/dL 04/18/2023 23:52 [facility] Alkaline Phosphatase 108 38 - 126 U/L 04/18/2023 23:52 [facility] AST 32 15 - 46 U/L 04/18/2023 23:52 [facility] ALT 30 <50 U/L 04/18/2023 23:52 [facility] Bilirubin, Total 0.5 <1.4 mg/dL 04/18/20 23:52 [facility] Calcium 9.8 8.5 - 10.5 mg/dL 04/18/2023 23:52 [facility] Albumin/Globulin Ratio 1.7 1.0 - 2.5 g/dL 04/18/2023 23:52 [facility] Anion Gap 11 5 - 14 mmol/L 04/18/2023 23:52 [facility] Blood VENOUS BLOOD / Unknown Venipuncture / Unknown 04/18/2023 23:27 EDT 04/18/2023 23:30 EDT Izabella Zimmer MD CHEMISTRY & BL OOD GAS ORDERABLES [facility] [address] [place] [address] * (ABNORMAL) COMPLETE BLOOD COUNT AND DIFFERENTIAL (04/18/2023 23:27 EDT) WBC 5.15 4.00 - 10.40 K/cmm 04/18/2023 23:33 [facility] RBC 5.48 4.36 - 5.78 M/cmm 04/18/2023 23:33 [facility] Hemoglobin 16.2 13.8 - 17.3 g/dL 04/18/2023 23:33 [facility] HCT 49.6 39.5 - 50.2 % 04/18/2023 23:33 [facility] MCV 91 81 - 95 fL 04/18/2023 23:33 [facility] MCH 29.6 27.6 - 33.0 pg 04/18/2023 23:33 [facility] MCHC 32.7(L) 32.8 - 36.4 g/dL 04/18/2023 23:33 [facility] RDW-CV 13.6 <14.2 % 04/18/2023 23:33 [facility] RDW-SD 45.7 <46.0 fl 04/18/2023 23:33 [facility] PLT 202 141 - 377 K/cmm 04/18/2023 23:33 [facility] MPV 9.3(L) 9.5 - 12.7 fL 04/18/2023 23:33 [facility] % Neutrophils 55.9 % 04/18/2023 23:33 [facility] % Lymphocytes 30.5 % 04/18/2023 23:33 [facility] % Monocytes 9.1 % 04/18/2023 23:33 [facility] % Eosinophils 3.7 % 04/18/2023 23:33 [facility] % Basophils 0.6 % 04/18/2023 23:33 [facility] % Immature Grans 0.2 % 04/18/20 23:33 [facility] Absolute Neutrophils 2.88 2.20 - 8.85 K/cmm 04/18/2023 23:33 [facility] Absolute Lymphocytes 1.57 1.09 - 3.30 K/cmm 04/18/2023 23:33 EDT [facility] Absolute Monocytes 0.47 0.10 - 0.80 K/cmm 04/18/2023 23:33 EDT [facility] Absolute Eosinophils 0.19 0.03 - 0.61 K/cmm 04/18/2023 23:33 EDT [facility] ABS Basophils 0.03 0.01 - 0.11 K/cmm 04/18/2023 23:33 EDT [facility] Absolute Immature Grans 0.01 0.00 - 0.06 K/cmm 04/18/2023 23:33 EDT [facility] Type of Differential: Auto 04/18/2023 23:33 EDT [facility] Blood VENOUS BLOOD / Unknown Venipuncture / Unknown 04/18/2023 23:27 EDT 04/18/2023 23:30 EDT Izabella Zimmer MD PACKAGES & DNA PROBE ORDERABLES Performing Organization Address [facility]/State/[facility] Co de Phone Number [facility] [address] [place] [address] * EKG 12-LEAD (04/18/2023 23:15 EDT) 04/18/2023 23:1 5 EDT Narrative [facility] - 04/19/2023 8:24 EDT ? [facility] ? Test Date: ?2023-04-18 Pat Name: ? RALPH JEONG ?Department: ? Room: ? A03 Gender: ? Male ? 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 KET : ?1950 ? Requested By: ALEJANDRA GILBERT Order Number: [id number] ? Rita MD: ?? OZZY TORRES MD ? Measurements Intervals ?[place] ? Rate: ? 132 ?P: ?106 MD: ? 160 ?QRS: ?-60 QRSD: ? 140 ?T: ?86 QT: ? 304 ? QTc: ?450 ? Interpretive Statements Sinus or ectopic atrial tachycardia Right bundle branch block Left anterior fascicular block Bifascicular block Compared to ECG 09/08/2022 15:24:39 Sinus rhythm no longer present I reviewed the tracing and have either agreed or edited the findings in this report. Electronically Signed On 04-19-2023 8:24:15 EDT by OZZY TORRES MD. 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 Electronically Signed On 04-19-2023 8:24:15 EDT by OZZY CHRISTENSEN. Izabella Zimmer MD CARDIAC ECG OR DERABLES [facility] documented in this encounter Visit Diagnoses Diagnosis Atrial fibrillation with RVR (HCC-CMS)- Primary Atrial fibrillation Atrial fibrillation with RVR (HCC-CMS) Atrial fibrillation Elevated troponin Other abnormal blood chemistry Acute renal insufficiency Unspecified disorder of kidney and ureter Atrial fibrillation with rapid ventricular response (HCC-CMS) Atrial fibrillation Elevated troponin Other abnormal blood chemistry Acute renal insufficiency Unspecified disorder of kidney and ureter Paroxysmal atrial fibrillation (HCC-CMS)- Primary Atrial fibrillation Paroxysmal atrial fibrillation (HCC-CMS) Atrial fibrillation documented in this encounter Admitting Diagnoses Diagnosis Atrial fibrillation with rapid ventricular response (HCC-CMS) Atrial fibrillation documented in this encounter Administered Medications Inactive Administered Medications - up to 3 most recent administrations Medication Order MAR Action Action Date Dose Rate Site acetaminophen (TYLENOL) tablet 650 mg 650 mg, oral, EVERY 6 HOURS PRN, Starting on Tue04/19/23 at 0352, Until Tonya 04/21/23 at 1313, Pain, Fever, Routine apixaban (ELIQUIS) tablet 5 mg 5 mg, oral, 2 TIMES DAILY, First dose on Tue04/19/23 at 0900, Until Discontinued, Routine Given 04/21/2023 8:33 EDT 5 mg Given 04/20/2023 20:58 EDT 5 mg Given 04/20/2023 10:14 EDT 5 mg aspirin chewable tablet 324 mg 324 mg, oral, NOW X1, 1 dose, On Tue04/19/23 at 0245, STAT Given 04/19/2023 2:28 EDT 324 mg aspirin EC tablet 81 mg 81 mg, oral, DAILY, First dose on Tue04/19/23 at 0900, Until Discontinued, Routine, Release Given 04/21/2023 8:34 EDT 81 m g Given 04/20/2023 10:14 EDT 81 mg Given 04/19/2023 8:08 EDT 81 mg atorvastatin (LIPITOR) tablet 40 mg 40 mg, oral, EVERY EVENING, First dose on Tue04/19/23 at 1700, Until Discontinued, Routine Given 04/20/2023 17:43 EDT 4 0 mg Given 04/19/2023 17:27 EDT 40 mg clopidogreL (PLAVIX) tablet 75 mg 75 mg, oral, DAILY, First dose on Tue04/19/23 at 0900, Until Discontinued, Routine Given 04/19/2023 8:08 EDT 75 mg dilTIAZem (CARDIZEM) in D5W 125 mg/125 mL infusion 5-20 mg/hr (5-20 mL/hr), intravenous, CONTINUOUS, Starting on Tue04/19/23 at 0300, Until Tue04/20/23 at 0400, STAT Rate Documented 04/19/2023 19:00 EDT 5 mg/hr 5 mL/hr Rate Documented 04/19/2023 18:00 EDT 5 mg/hr 5 mL/hr Rate Documented 04/19/2023 17:00 EDT 5 mg/hr 5 mL/hr dilTIAZem (CARDIZEM) injection - BOLUS dose 15 mg 15 mg, intravenous, NOW X1, 1 dose, On Tue04/19/23 at 0000, STAT Given 04/18/2023 23:43 EDT 15 mg dilTIAZem (CARDIZEM) injection - BOLUS dose 15 mg 15 mg, intravenous, NOW X1, 1 dose, On Tue04/19/23 at 0100, STAT Given 04/19/2023 0:39 EDT 15 mg insulin lispro (HUMALOG KWIKPEN) injection pen subcutaneous, 3 TIMES DAILY WITH MEALS, First dose on Tue04/19/23 at 0800, Until Discontinued Given 04/20/2023 12:36 EDT 3 Units lidocaine (PF) 10 mg/mL (1 %) injection 2 mg 2 mg, intradermal, PRN, 4 doses, Starting on Tue04/19/23 at 0352, Until Tue04/21/23 at 1313, peripheral intravenous catheter placement, Routine magnesium sulfate 2 g in water 50 mL 2 g, intravenous, Administer over 60 Minutes, NOW X1, 1 dose, On Tue04/20/23 at 0930, Routine New Bag 04/20/2023 10:14 EDT 2 g nitroglycerin (NITROSTAT) SL tablet 0.4 mg 0.4 mg, sublingual, EVERY 5 MIN PRN, 3 doses, Starting on Tue04/19/23 at 0416, Until Tue04/21/23 at 1313, Chest Pain, Routine, Release polyethylene glycol 3350 (MIRALAX) packet 17 g 17 g, oral, DAILY PRN, Starting on Tue04/19/23 at 0352, Until Tue04/21/23 at 1313, Constipation, Routine sodium chloride 0.9 % BOLUS 1,000 mL 1,000 mL, intravenous, NOW X1, 1 dose, On Tue04/19/23 at 0000, STAT New Bag 04/18/2023 23:43 EDT 1,000 mL sodium chloride 0.9 % BOLUS 500 mL 500 mL, intravenous, NOW X1, 1 dose, On Tue04/19/23 at 0100, STAT New Bag 04/19/2023 0:39 EDT 500 mL TAMSulosin (FLOMAX) capsule 0.4 mg 0.4 mg, oral, DAILY, First dose on Tue04/19/23 at 0900, Until Discontinued, Routine Given 04/21/2023 8:33 EDT 0.4 mg Given 04/20/2023 10:14 EDT 0.4 mg Given 04/19/2023 8:08 EDT 0.4 mg documented in this encounter Discontinued Medications Medication Sig Discontinue Reason Start Date End Da te clopidogreL (PLAVIX) 75 mg tabletIndications:Non-ST elevation myocardial infarction (NSTEMI) ([facility]) Take 1 Tablet by mouth daily. 02/10/2022 04/21/2023 documented as of this encounter Historical Medications * This list may reflect changes made after this encounter. Medication Sig Dispensed Refills Start Date End Date cyanocobalamin, vitamin B-12, 1,000 mcg capsule Take 1,000 mcg by mouth daily. added in this encounter Active and Recently Administered Medications Times are shown in EDT. Scheduled Medication Order 04/19/2023 04/20/2023 04/21/2023 apixaban (ELIQUIS) tablet 5 mg 5 mg, oral, 2 TIMES DAILY, First dose on Tue04/19/23 at 0900, Until Discontinued, Routine 0808 (Given - Provider: Gisel Flannery RN)2029 (Given - Provider: Sotero Kaur, RN) 1014 (Given - Provider: Cheryl Devries RN - Comment: procedure in AM)2057 (Given - Provider: Sotero Kaur, RN) 0833 (Given - Provider: Cheryl Devries, ANDRE) aspirin chewable tablet 324 mg (COMPLETED) 324 mg, oral, NOW X1, 1 dose, On Tue04/19/23 at 0245, STAT 0228 (Given - Provider: Laura Kitchen RN) aspirin EC tablet 81 mg 81 mg, oral, DAILY, First dose on Tue04/19/23 at 0900, Until Discontinued, Routine, Release 0808 (Given - Provider: Gisel Flannery RN) 1014 (Given - Provider: Cheryl Devries RN - Comment: procedure in AM) 0834 (Given - Provider: Cheryl Devries, ANDRE) atorvastatin (LIPITOR) tablet 40 mg 40 mg, oral, EVERY EVENING, First dose on Tue04/19/23 at 1700, Until Discontinued, Routine 1727 (Given - Provider: Gisel Flannery RN) 1743 (Given - Provider: Cheryl Devries, ANDRE) clopidogreL (PLAVIX) tablet 75 mg (CANCELED) 75 mg, oral, DAILY, First dose on Tue04/19/23 at 0900, Until Discontinued, Routine 0808 (Given - Provider: Gisel Flannery RN) dilTIAZem (CARDIZEM) injection - BOLUS dose 15 mg (COMPLETED) 15 mg, intravenous, NOW X1, 1 dose, On Tue04/19/23 at 0100, STAT 0039 (Given - Provider: Laura Kitchen RN) insulin lispro (HUMALOG KWIKPEN) injection pen subcutaneous, 3 TIMES DAILY WITH MEALS, First dose on Tue04/19/23 at 0800, Until Discontinued 0759 (Not Given - Provider: Gisel Flannery RN - Reason: Order parameters not met)1112 (Not Given - Provider: Gisel Flannery RN - Reason: Order parameters not met)1725 (Not Given - Provider: Gisel Flannery RN - Reason: Order parameters not met) 1019 (Not Given - Provider: Cheryl Devries RN - Reason: Order parameters not met)1236 (Given - Provider: Cheryl Devries RN)1746 (Not Given - Provider: Cheryl Devries RN - Reason: Order parameters not met) 0827 (Not Given - Provider: Cheryl Devries RN - Reason: Order parameters not met)1200 (Canceled Entry - Provider: Batch Job User Admin - Comment: Automatically canceled at discontinue of medication order) insulin lispro (HUMALOG KWIKPEN) injection pen subcutaneous, AT BEDTIME, First dose on Tue04/19/23 at 2100, Until Discontinued 2030 (Not Given - Provider: Sotero Kaur RN - Reason: Order parameters not met) 205 (Not Given - Provider: Sotero Kaur RN - Reason: Order parameters not met) magnesium sulfate 2 g in water 50 mL (COMPLETED) 2 g, intravenous, Administer over 60 Minutes, NOW X1, 1 dose, On Tue04/20/23 at 0930, Routine 1014 (New Bag - Provider: Cheryl Devries RN) sodium chloride 0.9 % BOLUS 500 mL (COMPLETED) 500 mL, intravenous, NOW X1, 1 dose, On Tue04/19/23 at 0100, STAT 0039 (New Bag - Provider: Laura Kitchen, RN)0137 (Completed - Provider: Laura Kitchen RN) TAMSulosin (FLOMAX) capsule 0.4 mg 0.4 mg, oral, DAILY, First dose on Tue04/19/23 at 0900, Until Discontinued, Routine 0808 (Given - Provider: Gisel Flannery, RN) 1014 (Given - Provider: Cheryl Devries, RN - Comment: procedure in AM) 0833 (Given - Provider: Cheryl Devries, RN) Continuous Medication Order 04/19/2023 04/20/2023 04/21/2023 dilTIAZem (CARDIZEM) in D5W 125 mg/125 mL infusion () 5-20 mg/hr (5-20 mL/hr), intravenous, CONTINUOUS, Starting on Tue04/19/23 at 0300, Until Tue04/20/23 at 0400, STAT 0240 (New Bag - Provider: Laura Kitchen RN)0520 (Infusion Stopped - Provider: Sotero Kaur, RN)1129 (New Bag - Provider: Gisel Flannery RN)1156 (Rate Change-ICU/L&D Only - Provider: Gisel Flannery RN)1200 (Rate Documented - Provider: Gisel Flannery RN)1207 (Rate Change-ICU/L&D Only - Provider: Gisel Flannery RN)1239 (Rate Change-ICU/L&D Only - Provider: Gisel Flannery RN)1300 (Rate Documented - Provider: Gisel Flannery RN)1400 (Rate Documented - Provider: Gisel Flannery RN)1500 (Rate Documented - Provider: Gisel Flannery RN)1600 (Rate Documented - Provider: Gisel Flannery RN)1700 (Rate Documented - Provider: Gisel Flannery RN)1800 (Rate Documented - Provider: Gisel Flannery RN)1900 (Rate Documented - Provider: Gisel Flannery RN) 0359 (Infusion Stopped - Provider: Sotero Kaur, RN) PRN Medication Order 04/19/2023 04/20/2023 04/21/2023 acetaminophen (TYLENOL) tablet 650 mg 650 mg, oral, EVERY 6 HOURS PRN, Starting on Tue04/19/23 at 0352, Until Tue04/21/23 at 1313, Pain, Fever, Routine dextrose 40% gel 15 g of glucose 15 g of glucose, oral, PRN, Starting on Tue04/19/23 at 0352, Until Tue04/21/23 at 1313, Low Blood Sugar, Routine dextrose 50 % solution 12.5 g 12.5 g, intravenous, PRN, Starting on Tue04/19/23 at 0352, Until Tonya 04/21/23 at 1313, Low Blood Sugar, Routine lidocaine (PF) 10 mg/mL (1 %) injection 2 mg 2 mg, intradermal, PRN, 4 doses, Starting on Tue04/19/23 at 0352, Until Tue04/21/23 at 1313, peripheral intravenous catheter placement, Routine nitroglycerin (NITROSTAT) SL tablet 0.4 mg 0.4 mg, sublingual, EVERY 5 MIN PRN, 3 doses, Starting on Tue04/19/23 at 0416, Until Tue04/21/23 at 1313, Chest Pain, Routine, Release polyethylene glycol 3350 (MIRALAX) packet 17 g 17 g, oral, DAILY PRN, Starting on Tue04/19/23 at 0352, Until Tue04/21/23 at 1313, Constipation, Routine documented in this encounter Orders Medications Ordered That Quirino ht Not Have Been Administered Count Last Ordered Date First Ordered Date acetaminophen (TYLENOL) tablet 650 mg 1 dextrose 40% gel 15 g of glucose 1 04/19/20 dextrose 50 % solution 12.5 g 1 04/19/2023 insulin lispro (HUMALOG KWIK PEN) injection pen 1 04/19/2023 lidocaine (PF) 10 mg/mL (1 % ) injection 2 mg 1 04/19/2023 nitroglycerin (NITROSTAT) SL tablet 0.4 mg 1 04/19/2023 polyethylene glycol 3350 (GA RALAX) packet 17 g 1 04/19/2023 Diet Count Last Ordered Date First Orde red Date DISCHARGE DIET 1 04/21/2023 Nursing Count Last Ordered Date First Orde red Date ACTIVITY INSTRUCTIONS 04/21/2023 BATHING INSTRUCTIONS 04/21/2023 DRIVING INSTRUCTIONS 04/21/2023 CALL HOSPITALIST FOR ADM/REF [facility] NURSE 1 04/19/2023 CALL PHYSICIAN SPECIALTY CONSULT 1 04/19/20 VTE PHARMACOLOGIC PROPHYLAXI S CURRENTLY ORDERED OR ON ALTERNATIVE THER 1 04/19/2023 Admission Count Last Ordered Date First Orde red Date ADMIT TO INPATIENT 1 04/19/2023 Discharge Count Last Ordered Date First Orde red Date DISCHARGE PATIENT 1 04/21/2023 Legal Count Last Ordered Date First Orde red Date MISCELLANEOUS DISCHARGE INSTRUCTIONS 2 04/05 documented in this encounter Care Teams Senior Test Engineer Relationship Specialty Start Date End Date Jessie Velasco [address] [place] [address] PCP - General Internal Medicine - Primary Care 08/26/21 Malini Euceda MD [address] [place] [address] [phone] Consulting Clinician Cardiovascular Disease 11/12/21 documented as of this encounter
--- OUTSIDE RECORDS SUMMARY | 2024-03-27 17:26 | XMS_ITS | Encounter Summary ---
Author Organization [facility] Address [address] [place] [address] Care Team Providers Care Legislative Director Name Role Phone MercyrosieJessie Frank Primary Care Provider Malini Euceda MD Unavailable [phone] Reason for Visit * Reason Onset Date Comments Appointment Related 08/13/2022 Encounter Details Date Type Department Care Team (Late st Contact Info) Description 08/13/2022 Telephone [facility] Urology - [address] [id number] David Bhatt, DO [address] [facility], [address] [place] [phone] Appointment Related Social History Tobacco Use Types [...] Telephone Encounter - Eric Palafox MA - 08/13/2022 1212 EST Left Message for patient, Due to a change in Dr. Bhatt's schedule, patient's appointment needs to be rescheduled. There was a cancellation at 13:00 on August 18, 2022. I have scheduled patient into that slot. If this does not work, please let me know. ERIC PALAFOX MA 08/13/2022 12:17 documented in this encounter Plan of Treatment Upcoming Encounters Date Type Department Care Team (Late st Contact Info) Description 04/02/2024 11:15 EDT Telemedicine [facility] Urology - [address] [phone] David Bhatt, DO [address] [facility], [address] [place] [phone] 07/12/2024 12:30 EST Hospital Encounter [place] [id number] [facility] [address] [place], [place] [address] Rodrigo Noyola MD [address] [place] [phone] Paroxysmal atrial fibrillation ([facility]) 07/12/2024 12:30 EST - 07/12/2024 17:00 EST Surgery [place] [address] [facility] [address] [place], [place] [id number] Rodrigo Noyola MD [address] [place] [phone] Albcj Woo [[id number] (CPT??)] 07/23/2024 11:00 EST Office Visit [facility] [address] [place] [phone] Malini Euceda MD [address] [place] [phone] documented as of this encounter Visit Diagnoses Not on filedocumented in this encounter Care Teams Legislative Director Relationship Specialty Start Date End Date Jessie Velasco [address] [place] [phone] PCP - General Internal Medicine - Primary Care 08/26/21 Malini Euceda MD [address] [facility] [address] [place] [phone] Consulting Clinician Cardiovascular Disease 11/12/21 documented as of this encounter
--- OUTSIDE RECORDS SUMMARY | 2024-03-27 17:26 | XMS_ITS | Encounter Summary ---
Author Organization [facility] Address [address] [place] [address] Care Team Providers Care Structural Biologist Name Role Phone Jessie Velasco Primary Care Provider [phone] Malini Euceda MD Unavailable [phone] Reason for Referral * Cardiology (Routine/Next Available) - Specialty Report Received Specialty Diagnoses / Procedures Referred By Contac t Referred To Contact Nuclear Medicine Diagnoses Chest pressure Procedures NM CARD PET NUCLEAR STRESS Malini Euceda MD [address] [place] [place] [phone] [facility] Referral ID Status Reason Start Date Expiration Date V isits Requested Visits Authorized [id number] Specialty Report Received 09/08/2022 1 1 Reason for Visit * Reason Comments Follow-up * Cardiology (Routine/Next Available) - New Request Specialty Diagnoses / Procedures Referred By Contac t Referred To Contact Diagnoses Chest pressure Procedures EKG 12-LEAD Malini Euceda MD [address] [place] [phone] Referral ID Status Reason Start Date Expiration Date V isits Requested Visits Authorized [id number] New Request 09/07/2022 1 1 Encounter Details Date Type Department Care Team (Late st Contact Info) Description 09/08/2022 15:30 EST Office Visit [facility] Cardiology Clinic [address] [place] [address] Malini Euceda MD [address] [place] [address] 1 [place] [address] Chest pressure (Primary Dx) Social History [...] Sign Reading Time Taken Comments Blood Pressure 130/78 09/08/2022 1516 EST Pulse 77 09/08/2022 1516 EST Temperature - - Respiratory Rate - - Oxygen Saturation 98% 09/08/2022 1516 EST Inhaled Oxygen Concentration - - Weight 103.5 kg (228 lb 3.2 oz) 09/08/2022 1516 EST Height 180.3 cm (5' 10.98) 09/08/2022 1516 EST Body Mass Index 31.85 09/08/2022 1516 EST documented in this encounter Functional Status [...] Progress Notes * Malini Euceda MD - 09/08/2022 1530 EST [facility] [place] Visit Subjective: Chief Complaint(s): Follow-up HPI: 72-year-old man with a history of type 2 diabetes, hypertension, hyperlipidemia with recent NSTEMI (08/2021) who presents for evaluation of chest pain. He noted 2 weeks ago he started experiencing right-sided chest pressure radiating to his right arm. Not related to exertion. Happens almost every day, seems to be increasing in frequency. Lasts anywhere from 5-20 minutes. It is self-limited. It isreminiscent of his previous NSTEMI in 2020. Occasionally associated with nausea. Has not tried nitroglycerin as of yet. Cardiac History 08-26-2021: Admitted with chest pressure and was found to have a troponin that peaked at 1.2. His left heart catheterization was notable for moderate disease multiple vessels, however no clear culprit. No stents placed. Treated medically with consideration of microvascular disease. Outpatient Medications Marked as Taking for the 09/08/22 encounter (Office Visit) with Malini Euceda MD Medication Sig ??? apixaban (ELIQUIS) 5 mg tablet Take 1 Tablet by mouth 2 times daily. ??? atorvastatin (LIPITOR) 40 mg tablet Take 1 Tablet by mouth every evening. ??? clopidogreL (PLAVIX) 75 mg tablet Take 1 Tablet by mouth daily. ??? metFORMIN (GLUCOPHAGE) 1,000 mg tablet Take 1,000 mg by mouth every morning. ??? metFORMIN (GLUCOPHAGE) 1,000 mg tablet Take 500 mg by mouth every evening. ??? Oesjc-1-TAD-EPA-Fish Oil (FISH OIL) 1,200 (144-216) mg capsule Take 1,200 mg by mouth daily. ??? ONETOUCH ULTRA BLUE TEST STRIP test strips TEST TWICE DAILY ??? ONETOUCH ULTRASOFT LANCETS TEST TWICE DAILY ??? TRULICITY 0.75 mg/0.5 mL subcutaneous pen Inject 0.75 mg into the skin once a week. On Sundays I have reviewed current problem list and current medications. ROS: Review of Systems Constitutional: Negative for malaise/fatigue. Cardiovascular: Positive for chest pain. Negative for palpitations, claudication and leg swelling. Objective: Examination: Vitals: BP 130/78 (BP Cuff Location: Right arm, BP Patient Position: Sitting, BP Cuff Sizes: Adult, regular) Pulse 77 Ht 180.3 cm (70.98) Wt (!) 103.5 kg (228 lb 3.2 oz) SpO2 98% BMI 31.85 kg/m?? Body mass index is 31.85 kg/m??. Physical Exam Constitutional: Appearance: Normal appearance. Cardiovascular: Rate and Rhythm: Normal rate and regular rhythm. Heart sounds: No murmur heard. No gallop. Pulmonary: Effort: Pulmonary effort is normal. No respiratory distress. Breath sounds: Normal breath sounds. Neurological: Mental Status: He is alert. Labs: Lab Results Component Value Date CHOL 117 11/13/2021 CHOL 155 08/27/2021 HDL 39 11/13/2021 HDL 49 08/27/2021 LDLBASE 61 11/13/2021 LDLBASE 83 08/27/2021 TRIG 85 11/13/2021 TRIG 114 08/27/2021 CHOLHDL 3.0 11/13/2021 CHOLHDL 3.2 08/27/2021 BUN Date Value Ref Range Status 08/27/2021 19 10 - 26 mg/dL Final 01/30/2014 20 10 - 26 mg/dl Final Creatinine Date Value Ref Range Status 08/27/2021 1.16 0.66 - 1.25 mg/dL Final 01/30/2014 1.20 0.66 - 1.25 mg/dl Final Potassium Date Value Ref Range Status 08/27/2021 4.5 3.5 - 5.0 mmol/L Final 01/30/2014 4.6 3.5 - 5.0 mEq/L Final Magnesium Date Value Ref Range Status 08/26/2021 1.6 (L) 1.7 - 2.8 mg/dL Final WBC Date Value Ref Range Status 08/27/2021 5.73 4.00 - 10.40 K/cmm Final 01/30/2014 7.94 4.0 - 10.4 K/cmm Final Hemoglobin Date Value Ref Range Status 08/27/2021 16.0 13.8 - 17.3 gm/dL Final 01/30/2014 13.2 (L) 13.8 - 17.3 gm/dl Final PLT Date Value Ref Range Status 08/27/2021 199 141 - 377 K/cmm Final 01/30/2014 221 141 - 320 K/cmm Final No results found for: HGBA1C No results found for: NTBNP Assessment & Plan: 72-year-old man with a history of type 2 diabetes, hypertension, hyperlipidemia with recent NSTEMI (08/2021) who presents for acute visit for chest pain. Chest discomfort: Has both typical and atypical symptoms. Given history, will evaluate with PET stress (concern for microvascular component during last NSTEMI). I advised him on nitroglycerin to evaluate for response to treatment. Advised him to seek emergency care after 3 doses if does not resolve. We will continue with treatment as described below in the meantime. NSTEMI: Diagnosed in with troponin peaking at 1.2. Left heart cath showed moderate lesions without significant culprit. Managing medically with Plavix/Eliquis (concurrent atrial flutter). Preserved ejection fraction. Possible microvascular component. -Continue Plavix and Apixaban for now (if stress normal, will drop Plavix, as he is one year out from NSTEMI) -Continue Lipitor 40 mg, LDL at goal of less than 70 Atrial flutter: Noted on recent Ziopatch- 1% burden. Asymptomatic. On Eliquis. Moderate aortic stenosis: No symptoms. Last TTE 08/26. Needs repeat TTE 08/2023. Return to clinic based on PET stress I spent a total of 30 minutes on the date of this encounter as indicated in the above progress note. Malini Euceda MD documented in this encounter Plan of Treatment Upcoming Encounters Date Type Department Care Team (Late st Contact Info) Description 04/02/2024 11:15 EDT Telemedicine [facility] Urology - [address] [phone] David Bhatt DO 111 [facility], [facility], Level [address] [place] [phone] 07/12/2024 12:30 EST Hospital Encounter [place] [address] [address] [place] [address] [id number] Rodrigo Noyola MD [address] [phone] Paroxysmal atrial fibrillation ([facility]) 07/12/2024 12:30 EST - 07/12/2024 17:00 EST Surgery [place] [address] [place] [address] [id number] Rodrigo Noyola MD [address] [phone] [facility] A-Kiara [[id number] (CPT??)] 07/23/2024 11:00 EST Office Visit [facility] Cardiology Clinic [address] [place] [address] [phone] Malini Euceda MD [address] [phone] documented as of this encounter Procedures Procedure Name Priority Date/Time Associated Diagnosis Comments ECG REPORT - SCANNED 09/08/2022 22:50 EST EKG 12-LEAD Routine 09/08/2022 15:24 EST Chest pressure documented in this encounter Results * NM CARD PET PHARM MULT STUDIES COMPLETE W/AQMBF (09/28/2022 9:09 EST) Target HR 148 bpm CARLYLE N MIS MERGE CARDIO Baseline HR 61 bpm STEVENSON NMIS MERGE CARDIO Baseline Systolic BP 166 mmHg STEVENSON NMIS MERGE CARDIO Baseline Diastolic BP 81 mmHg STEVENSON NMIS MERGE CARDIO Recovery HR 69 bpm CARLYLE NMIS MERGE CARDIO Recovery BP 135 mmHg STEVENSON NMIS MERGE CARDIO Recovery Diastolic BP 59 mmHg MARIANNEKESSON NMIS MERGE CARDIO Pre test likelihood of obstructive CAD 100 MCDYLAN NMI S MERGE CARDIO LAD Flow Number 2.69 LEONIDES SSON NMIS MERGE CARDIO LCX Myocardial Flow Number 2.71 MCJEROMESON NMIS MERGE CARDIO RCA Number 2.96 CARLYLE NMIS MERGE CARDIO Overall Number 2.76 STEVEN SON NMIS MERGE CARDIO Nuc Stress EF 61 % DEREJE ON NMIS MERGE CARDIO Nuc Rest EF 64 % MCKESSON NMIS MERGE CARDIO Anatomical Region Laterality Modality [...] oral diabetic agents and statins. Myocardial Flow [place] The myocardial flow reserve was 2.69 for [...] Malini Euceda MD CARDIAC NM ORDERABLE S * ECG REPORT - SCANNED (09/08/2022 22:50 EST) 09/08/2022 22:5 0 EST Scan 2 Registered Respiratory Therapist PROCEDURE/MINOR KIERSTEN GICAL ORDERABLES * EKG 12-LEAD (09/08/2022 15:24 EST) 09/08/2022 15:2 4 EST Narrative [facility] - 09/08/2022 22:44 EST ? CVC ? Test Date: ?2022-09-08 Pat Name: ? RALPH GARNICA ?Department: ? Room: ? Gender: ? Male ? Pvc Monitor: ?? MM : ?1950 ? Requested By: AMADA Garcia Order Number: [id number] ? Rita WETZEL: ?? BRINDA LOPEZ MD ? Measurements Intervals ?[place] ? Rate: ? 64 ? P: ?41 OR: ? 184 ?QRS: ?-41 QRSD: ? 146 [...] Name: RALPH GARNICA Department: Room: Gender: Male Pvc Monitor: ANNY : 1950 Requested By: AMADA Garcia Order Number: [id number] Reading MD: BRINDA LOPEZ MD Measurements Intervals [place] Rate: 64 P: 41 OR: 184 QRS: -41 QRSD: 146 T: 117 [...] Chest pressure- Primary Other chest pain Chest pressure Other chest pain Paroxysmal atrial fibrillation (HCC-CMS)- Primary Atrial fibrillation Paroxysmal atrial fibrillation (HCC-CMS) Atrial fibrillation documented in this encounter Care Teams Structural Biologist Relationship Specialty Start Date End Date Jessie Velasco [address] [place] [address] PCP - General Internal Medicine - Primary Care 08/26/21 Malini Euceda MD [address] [place] [address] [address] [place] [phone] Consulting Clinician Cardiovascular Disease 11/12/21 documented as of this encounter
--- OUTSIDE RECORDS SUMMARY | 2024-03-27 17:26 | XMS_ITS | Encounter Summary ---
Author Organization [facility] Address [address] [place] [address] Care Team Providers Care Retail Shift Leader Name Role Phone Jessie Velasco Primary Care Provider [phone] Malini Euceda MD Unavailable [phone] Encounter Details Date Type Department Care Team (Late st Contact Info) Description 09/17/2022 13:45 EST Phlebotomy Only [facility] ED Center 2 Phlebotomy [address] [place], [place] [address] Pourer Off, [facility] Phlebotomy Prostate cancer screening; Urine retention Social History Tobacco Use Types Packs/Day Years [...] EDT Telemedicine [facility] Urology - [address] [phone] David Bhatt, 111 [facility] 5 [place] [phone] 07/12/2024 12:30 EST Hospital Encounter [place] [address] [place] [phone] Rodrigo Noyola MD [address] [place] [phone] Paroxysmal atrial fibrillation (HCC-CMS) 07/12/2024 12:30 EST - 07/12/2024 17:00 EST Surgery [place] [address] [place] [address] [id number] Rodrigo Noyola MD [address] [place] [phone] Albation A-Fib [[id number] (CPT??)] 07/23/2024 11:00 EST Office Visit [facility] Cardiology Clinic [address] [place] [address] Malini Euceda MD 111 [facility] 1 [place] [address] documented as of this encounter Procedures Procedure Name Priority Date/Time Associated Diagnosis Comments PSA SCREEN Routine 09/17/2022 14:13 EST Prostate cancer screening BASIC METABOLIC PANEL (BMP) Routine 09/17/2022 14:13 EST Urine retention documented in this encounter Results * BASIC METABOLIC PANEL (BMP) (09/17/2022 14:13 EST) Sodium 139 136 - 145 mmol/L 09/17/2022 15:29 [facility] Potassium 4.8 3.5 - 5.0 mmol/L 09/17/2022 15:29 [facility] Chloride 99 96 - 110 mmol/L 09/17/2022 15:29 [facility] CO2 Total 27 22 - 32 mmol/L 09/17/2022 15:29 [facility] Anion Gap 13 5 - 14 09/17/2022 15:29 [facility] Glucose 87 70 - 100 mg/dL 09/17/2022 15:29 [facility] Calcium 9.4 8.5 - 10.5 mg/dL 09/17/2022 15:29 [facility] BUN 20 10 - 26 mg/dL 09/17/2022 15:29 [facility] Creatinine 1.15 0.66 - 1.25 mg/dL 09/17/2022 15:29 [facility] eGFR 68 >60 mL/min/1.73 m2 09/17/2022 15:29 [facility] Blood VENOUS BLOOD / Unknown Venipuncture / Unknown 09/17/2022 14:13 EST 09/17/2022 14:57 EST David Garcia Trevorvishal DO CHEMISTRY & BLOOD G ORDERABLES Performing Organization Address City/[facility]/ZIP Co de Phone Number [facility] [address] [place] [address] * PSA SCREEN (09/17/2022 14:13 EST) PSA 1.9 <=6.5 ng/mL 09/17/2022 17:05 EST [facility] Blood VENOUS BLOOD / Unknown Venipuncture / Unknown 09/17/2022 14:13 EST 09/17/2022 14:57 EST Narrative [facility] - 09/17/2022 17:05 EST NOTE: Serum PSA concentration should not be interpreted as absolute evidence for the presence or absence of malignant disease. Assayed on Siemens Elias Borges [employer] XPT using chemiluminescent technology.??Values obtained by using different assay methods cannot be used interchangeably. David Bhatt DO CHEMISTRY & BLOOD G ORDERABLES Performing Organization Address [facility] Co de Phone Number [facility] [address] [place] [address] documented in this encounter Visit Diagnoses Diagnosis Prostate cancer screening Special screening for malignant neoplasm of prostate Urine retention Retention of urine, unspecified Paroxysmal atrial fibrillation (HCC-CMS)- Primary Atrial fibrillation Paroxysmal atrial fibrillation (HCC-CMS) Atrial fibrillation documented in this encounter Care Teams Retail Shift Leader Relationship Specialty Start Date End Date Jessie Velasco [address] [place] [address] PCP - General Internal Medicine - Primary Care 08/26/21 Malini Euceda MD [address] [place] [address] [address] [place] [phone] Consulting Clinician Cardiovascular Disease 11/12/21 documented as of this encounter
--- OUTSIDE RECORDS SUMMARY | 2024-03-27 17:26 | XMS_ITS | Encounter Summary ---
Author Organization [facility] Address [address] [place] [address] Care Team Providers Care Tank Inspector Name Role Phone KristaJessie Frank Primary Care Provider [phone] Malini Euceda MD Unavailable [phone] Encounter Details Date Type Department Care Team (Late st Contact Info) Description 07/05/2022 Telephone [facility] Urology - [address] [phone] David Bhatt, DO 111 [facility], Level [address] [place] [phone] Social History Tobacco Use Types Packs/Day Years [...] encounter Miscellaneous Notes * Telephone Encounter - Liat Posadas - 07/05/2022 1612 EDT I LM for Pt informing him that I have scheduled him an appt for 09/01/22 @4:15pm. If he wasn't ableto keep this appt to call and I would reschedule him documented in this encounter Plan of Treatment Upcoming Encounters Date Type Department Care Team (Late st Contact Info) Description 04/02/2024 11:15 EDT Telemedicine [facility] Urology - [facility] [address] [place], [place] [phone] David Bhatt, [address] [facility] 5 [place] [phone] 07/12/2024 12:30 EST Hospital Encounter [place] 1 EP Lab [address] [place], [place] [phone] Rodrigo Noyola MD [address] [phone] Paroxysmal atrial fibrillation (HCC-CMS) 07/12/2024 12:30 EST - 07/12/2024 17:00 EST Surgery [place] [address] EP [address] [place] [address] [phone] Rodrigo Noyola MD [address] [phone] Albation A-Fib [[id number] (CPT??)] 07/23/2024 11:00 EST Office Visit [facility] Cardiology Clinic [address] [place] [phone] Malini Euceda MD [address] [place] [phone] documented as of this encounter Visit Diagnoses Not on filedocumented in this encounter Care Teams Tank Inspector Relationship Specialty Start Date End Date Jessie Velasco [address] [place] [phone] PCP - General Internal Medicine - Primary Care 08/26/21 Malini Euceda MD [address] [place] [address]-[address] [place] [address] Consulting Clinician Cardiovascular Disease 11/12/21 documented as of this encounter
--- OUTSIDE RECORDS SUMMARY | 2024-03-27 17:26 | XMS_ITS | Encounter Summary ---
Author Organization [facility] Address [address] [place] [address] Care Team Providers Care Optometrist President/Practice Owner Name Role Phone Jessie Velasco Primary Care Provider [phone] Malini Euceda MD Unavailable [phone] Encounter Details Date Type Department Care Team (Late st Contact Info) Description 03/28/2023 16:00 EDT Phlebotomy Only [facility] - Outpatient Phlebotomy Drawing [address] [place] [address] Lab, [facility] Phle[facility] Nonrheumatic aortic valve stenosis; Acute coronary thrombosis not resulting in myocardial infarction ([facility]) Social History Tobacco Use Types Packs/Day Years [...] as of this encounter Miscellaneous Notes * Result Encounter Note - Malini Euceda MD - 03/28/2023 1600 EDT Patient notified of results via Kony documented in this encounter Plan of Treatment Upcoming Encounters Date Type Department Care Team (Late st Contact Info) Description 04/02/2024 11:15 EDT Telemedicine [facility] Urology - [address] [phone] David Bhatt, 111 [facility], Level [address] [place] [phone] 07/12/2024 12:30 EST Hospital Encounter [place] [address] EP Lab [address] [place], [place] [phone] Rodrigo Noyola MD 111 [facility] Level [address] [place] [phone] Paroxysmal atrial fibrillation (HCC-CMS) 07/12/2024 12:30 EST - 07/12/2024 17:00 EST Surgery [place] [address] EP Lab [address] [place] [address] Rodrigo Noyola MD [address] [phone] [place] A-Fib [[id number] (CPT??)] 07/23/2024 11:00 EST Office Visit [facility] Cardiology Clinic [address] [place] [address] Malini Euceda MD [address] [phone] documented as of this encounter Procedures Procedure Name Priority Date/Time Associated Diagnosis Comments LIPID PROFILE (INCLUDES CHOLESTEROL, TRIGLYCERIDES, HDL, LDL) Routine 03/28/2023 16:03 EDT Nonrheumatic aortic valve stenosis Acute coronary thrombosis not resulting in myocardial infarction ([facility]) documented in this encounter Results * LIPID PROFILE (INCLUDES CHOLESTEROL, TRIGLYCERIDES, HDL, LDL) (03/28/2023 16:03 EDT) Cholesterol 127 <200 mg/dL 03/28/2023 17:07 [facility] Comment:Note that therapeuti c goals will differ between patients based on cardiac risk factors and current medical therapy. HDL 43 >=40 mg/dL 03/28/2023 17:07 T [facility] Comment:Note that therapeuti c goals will differ between patients based on cardiac risk factors and current medical therapy. LDL, Calculated 58 <160 mg/dL 17:07 [facility] Comment:Note that therapeuti c goals will differ between patients based on cardiac risk factors and current medical therapy. Triglyceride 130 <=150 mg/dL 03/28/2023 17:07 [facility] Comment:Note that therapeuti c goals will differ between patients based on cardiac risk factors and current medical therapy. Chol/HDL Ratio 3.0 See Note 03/28/2023 17:07 EDT [facility] Comment: NOTE: Desirable Ratio = <4.1 Patient At Risk Ratio = >5.0(Males) ?>6.0(Females) Non HDL Cholesterol 84 <160 mg/dL 03/28/2023 17:07 EDT [facility] Comment:Note that therapeuti c goals will differ between patients based on cardiac risk factors and current medical therapy. Blood VENOUS BLOOD / Unknown Venipuncture / Unknown 03/28/2023 16:03 EDT 03/28/2023 16:30 EDT Malini Euceda MD CHEMISTRY & BLOOD GA S ORDERABLES Performing Organization Address City/State/[facility] Co de Phone Number [facility] [address] [place] [phone] documented in this encounter Visit Diagnoses Diagnosis Nonrheumatic aortic valve stenosis Aortic valve disorders Acute coronary thrombosis not resulting in myocardial infarction (HCC-CMS) Acute coronary occlusion without mycocardial infarction Paroxysmal atrial fibrillation (HCC-CMS)- Primary Atrial fibrillation Paroxysmal atrial fibrillation (HCC-CMS) Atrial fibrillation documented in this encounter Care Teams Optometrist President/Practice Owner Relationship Specialty Start Date End Date Jessie Velasco [address] [place] [address] PCP - General Internal Medicine - Primary Care 08/26/21 Malini Euceda MD [address] [place] [address] [facility]A [address] [place] [address] Consulting Clinician Cardiovascular Disease 11/12/21 documented as of this encounter
--- OUTSIDE RECORDS SUMMARY | 2024-03-27 17:26 | XMS_ITS | Encounter Summary ---
Author Organization [facility] Address [address] [place] [address] Care Team Providers Care Program Instructor Name Role Phone MercyrosieJessie Primary Care Provider [phone] Malini Euceda MD Unavailable [phone] Reason for Referral * Cardiology (Routine/Next Available) - Specialty Report Received Specialty Diagnoses / Procedures [facility]erred To Contact Cardiology Diagnoses Non-ST elevation myocardial infarction (NSTEMI) ([facility]) Procedures TRANSTHORACIC ECHO (TTE) COMPLETE SC ECHO HEART XTHORACIC,COMPLETE W DOPPLER Malini Euceda MD 111 [facility], [facility] [address] [place] [address] [facility] Non-Invasive Card [address] [place] [id number] Referral ID Status Reason Start Date Expiration Date V isits Requested Visits Authorized [id number] Specialty Report Received 02/10/2022 1 1 Reason for Visit * Cardiology (Routine/Next Available) - Specialty Report Received Specialty Diagnoses / Procedures Referred By Contac t Referred To Contact Cardiology Diagnoses Non-ST elevation myocardial infarction (NSTEMI) (HCC-CMS) Procedures TRANSTHORACIC ECHO (TTE) COMPLETE SC ECHO HEART XTHORACIC,COMPLETE W DOPPLER Malini Euceda MD 111 [facility], Level [address] [place] [address] [facility] Non-Invasive Card [address] [place] [address] Referral ID Status Reason Start Date Expiration Date V isits Requested Visits Authorized [id number] Specialty Report Received 02/10/2022 1 1 Encounter Details Date Type Department Care Team (Latest Contact Info) Description 08/05/2022 8:46 EST - 08/05/2022 23:59 EST Hospital Encounter [facility] Non-Invasive Cardiology [address] [place] [address] Non-ST elevation myocardial infarction (NSTEMI) ([facility]) Discharge Disposition: Home or Self Care Social [...] Sign Reading Time Taken Comments Blood Pressure 165/78 08/05/2022 0930 EST Pulse - - Temperature - - Respiratory [...] Take 0.5 Tablets by mouth every evening. Ctdzu-3-WZQ-EPA-Fish Oil (FISH OIL) 1,200 (144-216) mg capsule [...] mouth daily. 90 Tablet 3 02/10/2022 04/21/2023 documented as of this encounter Discharge Disposition Disposition Code Departure Means Destination Home or Self Care documented in this encounter Miscellaneous Notes * Result Encounter Note - Malini Euceda MD - 08/05/2022 0900 EST Patient notified of results vis MyChart. documented in this encounter Plan of Treatment Upcoming Encounters Date Type Department Care Team (Late st Contact Info) Description 04/02/2024 11:15 EDT Telemedicine [facility] Urology - [address] [id number] David Bhatt, [address] [place] [address] 5 [place] [phone] 07/12/2024 12:30 EST Hospital Encounter [place] [address] [address] [place] [address] [id number] Rodrigo Noyola MD [address] [place] [phone] Paroxysmal atrial fibrillation ([facility]) 07/12/2024 12:30 EST - 07/12/2024 17:00 EST Surgery [place] [address] [address] [place] [address] [id number] Rodrigo Noyola MD [address] [place] [phone] Albation Kaur-Kiara [[id number] (CPT??)] 07/23/2024 11:00 EST Office Visit [facility] Cardiology Clinic [address] [place] [address] [phone] Malini Euceda MD [address] [place] [phone] documented as of this encounter Procedures Procedure Name Priority Date/Time Associated Diagnosis Comments TRANSTHORACIC ECHO (TTE) COMPLETE Routine 08/05/2022 9:30 EST Non-ST elevation myocardial infarction (NSTEMI) (HCC-CMS) documented in this encounter Results * TRANSTHORACIC ECHO (TTE) COMPLETE W/DOPPLER W/CF NO CONTRAST (08/05/2022 9:30 EST) Pathologist [facility] LV ID, ED, PLAX 5.5 3.5 - 6.0 cm [facility] LV ID, ES, PLAX 3.5 2.1 - 4.0 cm [facility] IVS thickness, ED, PLAX 1.1 cm [facility] LV PW thickness, ED, PLAX 1.2 0.6 - 1.1 cm [facility] LV ejection fraction, 1-p A4C 62 % [facility] LV end-diastolic volume, 1-p A4C 88 ml [facility] LV ejection fraction, 1-p A2C 63 % [facility] LV end diastolic volume 1-p A2C 63 ml [facility] EF 62 % [facility] LVOT ID, S 2.1 cm [facility] LVOT area 3.5 cm2 [facility] LVOT peak velocity, S 0.9 m/s [facility] LVOT mean velocity, S 0.6 m/s [facility] LVOT VTI, S 25.1 cm [facility] AV LVOT peak gradient 3 mmHg [facility] LVOT mean gradient, S 2 mmHg [facility] Stroke volume (SV), LVOT DP 87 ml [facility] Stroke index (SV/bsa) LVOT DP 39.0 ml/m2 [facility] LV Diastolic Volume 74 mL [facility] LV Systolic Volume 29 mL [facility] LVIDD BY MMODE 5.5 cm [facility] LV e', lateral 0.09 m/s [facility] LV E/e', lateral 10.0 [facility] LV e', medial 0.05 m/s [facility] LV E/e', medial 18.0 [facility] LV e', average 0.07 m/s [facility] LV E/e', average 14 [facility] Mitral deceleration time 257 ms [facility] Mitral E-wave peak velocity 0.9 m/s [facility] Mitral A-wave peak velocity 0.8 m/s [facility] LA ID, A-P, ES 4.5 cm [facility] LA ID/bsa, A-P 2.0 cm/m2 [facility] LA Atrial Area A4C 24.4 cm2 [facility] LA Atrial Area A2C 24.4 cm2 [facility] LA volumes, ES, A4C 68.0 ml [facility] LA volume/bsa, ES, A4C 31.0 ml/m2 [facility] LA volume, ES, BP 80.0 ml [facility] LA volume/bsa, ES, BP 36.0 ml/m2 [facility] LA/aortic root ratio 1.32 [facility] O LA Atrial Length A4C 6.8 cm [facility] LA Atrial Length A2C 6.9 cm [facility] O Aortic valve peak velocity, S 2.7 m/s [facility] Aortic valve mean velocity, S 1.8 m/s [facility] Aortic valve VTI, S 62.6 cm [facility] Aortic valve area VTI 1.4 cm2 [facility] Aortic valve area, peak velocity 1.2 cm2 [facility] Aortic peak gradient, S 30 mmHg [facility] Aortic mean gradient, S 15 mmHg [facility] AV DOI 0.34 [facility] Velocity ratio, mean, LVOT/AV 0.34 [facility] AVAI Pk Brett 0.5 cm2/m2 [facility] Mitral peak gradient, D 3 mmHg [facility] Aortic root ID 3.4 cm [facility] Ascending aorta ID, a-p 3.2 cm [facility] LV Diastolic Volume Index 34.0 mL/m2 [facility] LV Systolic Volume Index 13.0 mL/m2 [facility] AV dimensionless index (DI) 0.6 [facility] Aortic valve area 1.2 cm2 [facility] Pulmonic valve mean velocity, S 1 cm/s [facility] Interventricular Septum to Posterior Wall Thickness Ratio 0.9 [facility] Mitral E/A ratio, peak 1.10 [facility] TAPSE 2.80 cm [facility] Anatomical Region Laterality Modality Ultrasound Narrative 08/06/2022 14:22 EST ?Left??Ventricle: Left ventricular systolic function was normal with an ejection fraction of 60-65%. ?Right??Ventricle: The right ventricular cavity was normal in size. Right ventricular systolic function was normal. ?Aortic??Valve: The aortic valve structure was trileaflet. The aortic leaflets were mildly thickened and mildly calcified. There was moderate aortic valve stenosis. AV Peak Gradient: 30mmHg. AV Mean Gradient: 15mmHg. AV Area VTI: 1.4. ?Pulmonic??Artery: Unable to assess PA pressure due to suboptimal TR jet. Left Ventricle The left ventricular cavity was normal in size. Left ventricular systolic function was normal with an ejection fraction of 60-65%. Some parameters suggest left ventricular diastolic dysfunction. Left atrial pressure was inconclusive. There was mild hypertrophy of the left ventricle. Left ventricular wall motion was normal; there were no regional wall motion abnormalities. Right Ventricle The right ventricular cavity was normal in size. Right ventricular systolic function was normal. Right ventricular wall thickness was normal. Left Atrium Left atrial cavity was mildly dilated. Right Atrium Right atrial cavity was mildly dilated. IVC/SVC The inferior vena cava was normal in size. The inferior vena cava demonstrated a diameter of <=21 mm and collapses >50%; therefore, the right atrial pressure is estimated at 0-5 mmHg. Mitral Valve The mitral leaflets were mildly thickened and were mildly calcified. There was mild posterior annular calcification. There was trace mitral regurgitation. There was no significant mitral valve stenosis. Tricuspid Valve Tricuspid valve structure was normal. There was trace tricuspid valve regurgitation. There was no tricuspid valve stenosis. Aortic Valve The aortic valve structure was trileaflet. The aortic leaflets were mildly thickened and mildly calcified. There was moderate aortic valve stenosis. There was no aortic valve regurgitation. AV Peak Gradient: 30mmHg. AV Mean Gradient: 15mmHg. AV Area VTI: 1.4. Pulmonic Valve There was no pulmonic valve regurgitation. There was no pulmonic valve stenosis. Ascending Aorta The aortic root was normal in size. The ascending aorta was normal in size. The transverse aorta was normal in size. Pericardium There was no pericardial effusion. Pulmonic Artery Unable to assess PA pressure due to suboptimal TR jet. Study Details Study status: Routine. Transthoracic echocardiography. M-Mode, complete 2D, complete spectral Doppler, and color Doppler.Scanning was performed from the apical, parasternal, subcostal and suprasternal acoustic windows. Overall the study quality was good. Images were obtained using cardiac ultrasound machine [id number]. Malini Euceda MD CARDIAC ECHO ORDERAB LES documented in this encounter Visit Diagnoses Diagnosis Non-ST elevation myocardial infarction (NSTEMI) (HCC-CMS) Acute myocardial infarction, subendocardial infarction, episode of care unspecified Paroxysmal atrial fibrillation (HCC-CMS)- Primary Atrial fibrillation Paroxysmal atrial fibrillation (HCC-CMS) Atrial fibrillation documented in this encounter Care Teams Program Instructor Relationship Specialty Start Date End Date Jessie Velasco [address] [place] [address] PCP - General Internal Medicine - Primary Care 08/26/21 Malini Euceda MD [address] [place] [address] [address] [place] [phone] Consulting Clinician Cardiovascular Disease 11/12/21 documented as of this encounter
--- OUTSIDE RECORDS SUMMARY | 2024-03-27 17:26 | XMS_ITS | Encounter Summary ---
Author Organization [facility] Address [address] [place] [address] Care Team Providers Care Director Corporate Sales Name Role Phone MercyrosieJessie Frank Primary Care Provider Malini Euceda MD Unavailable [phone] Reason for Visit * Reason Onset Date Comments Appointment Related 08/13/2022 Encounter Details Date Type Department Care Team (Late st Contact Info) Description 08/13/2022 Telephone [facility] Urology - [address] [address] David Bhatt, DO 111 [facility], Level [address] [place] [phone] Appointment Related Social History Tobacco Use Types [...] Encounter - Eric Palafox MA - 08/13/2022 1442 EST Spoke with patient, New appointment date is October 15 at 11:45 AM. ERIC PALAFOX MA 08/13/2022 14:43 * Telephone Encounter - Ro Haywood - 08/13/2022 1415 EST The new appointment date and time do not work for the patient. Please call to reschedule documented in this encounter Plan of Treatment Upcoming Encounters Date Type Department Care Team (Late st Contact Info) Description 04/02/2024 11:15 EDT Telemedicine [facility] Urology - [address] [address] David Bhatt, DO 111 [facility], Level [address] [place] [address] 07/12/2024 12:30 EST Hospital Encounter [place] [address] EP Lab [address] [place], [place] [phone] Rodrigo Noyola MD [address] [place] [phone] Paroxysmal atrial fibrillation ([facility]) 07/12/2024 12:30 EST - 07/12/2024 17:00 EST Surgery [place] [address] EP Lab [address] [place], [place] [phone] Rodrigo Noyola MD [address] [place] [phone] Bryce Woo [[id number] (CPT??)] 07/23/2024 11:00 EST Office Visit [facility] Cardiology Clinic [address] [place] [address] Malini Euceda MD [address] [place] [phone] documented as of this encounter Visit Diagnoses Not on filedocumented in this encounter Care Teams Director Corporate Sales Relationship Specialty Start Date End Date Jessie Velasco [address] [place], [place] [phone] PCP - General Internal Medicine - Primary Care 08/26/21 Malini Euceda MD 130 [facility] [address] [place] [phone] Consulting Clinician Cardiovascular Disease 11/12/21 documented as of this encounter
--- OUTSIDE RECORDS SUMMARY | 2024-03-27 17:26 | XMS_ITS | Encounter Summary ---
Author Organization [facility] Address [address] [place] [address] Care Team Providers Care Glass Products Inspector Name Role Phone Jessie Velasco Primary Care Provider Malini Euceda MD Unavailable [phone] Encounter Details Date Type Department Care Team (Late st Contact Info) Description 09/10/2022 Orders Only [facility] Urology - [address] [phone] David Bhatt, DO 111 [facility], Level 5 [place] [phone] Benign localized prostatic hyperplasia with lower urinary tract symptoms (LUTS) (Primary Dx) Social History Tobacco Use Types [...] Description 04/02/2024 11:15 EDT Telemedicine [facility] U[facility] - [facility] [address] [place], [place] [phone] David Bhatt DO 111 [facility], [facility] 5 [place] [phone] 07/12/2024 12:30 EST Hospital Encounter [place] [facility] EP Lab [address] [place] [address] Rodrigo Noyola MD 111 [facility], [facility] 1 [place] [phone] Paroxysmal atrial fibrillation (HCC-CMS) 07/12/2024 12:30 EST - 07/12/2024 17:00 EST Surgery [place] [facility] EP Lab [address] [place] [address] Rodrigo Noyola MD 111 [facility], [facility] 1 [place] [address] Eliocj DietrichLiana [[id number] (CPT??)] 07/23/2024 11:00 EST Office Visit [facility] Cardiology Clinic [address] [place] [address] Malini Euceda MD 111 [facility] 1 [place] [address] Scheduled Orders Name Type Priority Associated Diagnoses Orde r Schedule UROLOGY BLADDER SCAN Procedure Routine Benign localized prostatic hyperplasia with lower urinary tract symptoms (LUTS) 10 Occurrences starting 09/10/2022 until 09/10/2023, 1 completed documented as of this encounter Results * UROLOGY BLADDER SCAN (09/17/2022) Bladder Scan 821 mL UVN P OINT OF CARE Urine David Bhatt DO UROLOGY ORDERABLES UVN POINT OF CARE documented in this encounter Visit Diagnoses Diagnosis Benign localized prostatic hyperplasia with lower urinary tract symptoms (LUTS)- Primary Benign localized hyperplasia of prostate with urinary obstruction and other lower urinary tract symptoms (LUTS) Paroxysmal atrial fibrillation (HCC-CMS)- Primary Atrial fibrillation Paroxysmal atrial fibrillation (HCC-CMS) Atrial fibrillation documented in this encounter Care Teams Glass Products Inspector Relationship Specialty Start Date End Date Jessie Velasco [address] [place] [address] [facility] [address] PCP - General Internal Medicine - Primary Care 08/26/21 Malini Euceda MD [address] [place] [address] [place] [address] Consulting Clinician Cardiovascular Disease 11/12/21 documented as of this encounter
--- OUTSIDE RECORDS SUMMARY | 2024-03-27 17:26 | XMS_ITS | Encounter Summary ---
Author Organization [facility] Address [address] [place] [address] Care Team Providers Care Disaster Recovery Coordinator Name Role Phone KristaJessie Frank Primary Care Provider [phone] Malini Euceda MD Unavailable [phone] Reason for Visit * Reason Comments Heart Problem Irregular heart beat Encounter Details Date Type Department Care Team (Late st Contact Info) Description 01/28/2023 16:00 EDT Office Visit [facility] Cardiology - Kristine Kristine [address] [place], [place] [phone] Jess Franco MD [address] [phone] Hyperlipidemia, unspecified hyperlipidemia type (Primary Dx); Hypertension, unspecified type; Coronary artery disease involving pala coronary artery of pala heart without angina pectoris; Nonrheumatic aortic valve stenosis Social History Tobacco [...] Sign Reading Time Taken Comments Blood Pressure 134/70 01/28/2023 1546 EDT Pulse 60 01/28/2023 1546 EDT Temperature - - Respiratory Rate - - Oxygen Saturation 96% 01/28/2023 1546 EDT Inhaled Oxygen Concentration - - Weight 102.5 kg (226 lb) 01/28/2023 1546 EDT Height - - Body Mass Index 31.54 09/08/2022 1516 EST documented in this encounter [...] as of this encounter Progress Notes * Jess Franco MD - 01/28/2023 1600 EDT Cardiology Follow Up 01/28/23 Chief complaint: Heart Problem (Irregular heart beat) Assessment & Plan Ralph Garnica is a 72 y.o. male with moderate 2 vessel CAD, moderate , HTN. Recent ischemic evaluation negative for ischemia. Echocardiogram with stable moderate . FU 1 year with Malini Euceda. FU echocardiogram 1-2 years. Diagnoses and all orders for this visit: Hyperlipidemia, unspecified hyperlipidemia type Hypertension, unspecified type Coronary artery disease involving pala coronary artery of pala heart without angina pectoris Nonrheumatic aortic valve stenosis Other orders - losartan (COZAAR) 25 mg tablet No follow-ups on file. Jess Franco MD Subjective Ralph Garnica is a 72 y.o. male with moderate 2 vessel CAD, moderate , HTN. Tyron reports single episode of rest angina, he underwent ischemic evaluation afterwards, which was reassuring. His echocardiogram revealed stable LVEF, and moderate . He has been feeling well since. ROS See subjective for pertinent positives and negatives Problem List and History were reviewed in the EMR Outpatient Medications Marked as Taking for the 01/28/23 encounter (Office Visit) with Jess Franco MD: ??? apixaban (ELIQUIS) 5 mg tablet, Take 1 Tablet by mouth 2 times daily. ??? atorvastatin (LIPITOR) 40 mg tablet, Take 1 Tablet by mouth every evening. ??? losartan (COZAAR) 25 mg tablet, Take 25 mg by mouth daily. ??? metFORMIN (GLUCOPHAGE) 1,000 mg tablet, Take 1,000 mg by mouth every morning. ??? metFORMIN (GLUCOPHAGE) 1,000 mg tablet, Take 500 mg by mouth every evening. ??? Hjxli-2-ZJM-EPA-Fish Oil (FISH OIL) 1,200 (144-216) mg capsule, Take 1,200 mg by mouth daily. ??? ONETOUCH ULTRA BLUE TEST STRIP test strips, TEST TWICE DAILY ??? ONETOUCH ULTRASOFT LANCETS, TEST TWICE DAILY ??? TAMSulosin (FLOMAX) 0.4 mg capsule, Take 1 Capsule by mouth daily. ??? TRULICITY 0.75 mg/0.5 mL subcutaneous pen, Inject 0.75 mg into the skin once a week. On Sundays Objective BP 134/70 (BP Cuff Location: Left arm, BP Patient Position: Sitting, BP Cuff Sizes: Adult, regular) Pulse 60 Wt (!) 102.5 kg (226 lb) SpO2 96% BMI 31.54 kg/m?? Physical Exam RHR 60/min, S1, preserved S2, 2/6 BLANE 2nd RICS radiating to the left sternal border. No JVD, no bruit. Lungs cta b/l. No LE edema. Diagnostics:Reviewed and discussed. I spent a total of 15 minutes on the date of this encounter meeting with the patient and reviewing documentation/coordinating care as described in the above note. documented in this encounter Plan of Treatment Upcoming Encounters Date Type Department Care Team (Late st Contact Info) Description 04/02/2024 11:15 EDT Telemedicine [facility] Urology - [address] [phone] David Bhatt DO [address] [place] [address] [address] [place] [phone] 07/12/2024 12:30 EST Hospital Encounter [place] [address] [address] [place] [phone] Rodrigo Noyola MD [address] [place] [phone] Paroxysmal atrial fibrillation ([facility]) 07/12/2024 12:30 EST - 07/12/2024 17:00 EST Surgery [place] [address] EP Lab [address] [place] [phone] Rodrigo Noyola MD [address] [place] [phone] Bryce Woo [[id number] (CPT??)] 07/23/2024 11:00 EST Office Visit [facility] Cardiology Clinic [address] [place], [place] [address] Malini Euceda MD [address] [place] [phone] documented as of this encounter Visit Diagnoses Diagnosis Hyperlipidemia, unspecified hyperlipidemia type- Primary Hypertension, unspecified type Coronary artery disease involving pala coronary artery of pala heart without angina pectoris Nonrheumatic aortic valve stenosis Aortic valve disorders Paroxysmal atrial fibrillation (HCC-CMS)- Primary Atrial fibrillation Paroxysmal atrial fibrillation (HCC-CMS) Atrial fibrillation documented in this encounter Historical Medications * This list may reflect changes made after this encounter. Medication Sig Dispensed Refills Start Date End Date losartan (COZAAR) 25 mg tablet Take 2 Tablets by mouth daily. added in this encounter Care Teams Disaster Recovery Coordinator Relationship Specialty Start Date End Date Jessie Velasco [address] [place] [address] PCP - General Internal Medicine - Primary Care 08/26/21 Malini Euceda MD [address] [place] [address] [phone] Consulting Clinician Cardiovascular Disease 11/12/21 documented as of this encounter
--- OUTSIDE RECORDS SUMMARY | 2024-03-27 17:26 | XMS_ITS | Encounter Summary ---
Author Organization [facility] Address [address] [place] [address] Care Team Providers Care Property Officer Name Role Phone Jessie Velasco Primary Care Provider Malini Euceda MD Unavailable [phone] Reason for Visit * Reason Comments Follow-up BPH With Obstruction * Referral (3 - 10 Business Days) - Receiving Office to Obtain Authorization Specialty Diagnoses / Procedures Ref[facility] Referred To Contact Urology Diagnoses Gross hematuria Jessie Velasco [address] [place] [address] David Bhatt, DO [address] [place] [phone] Referral ID Status Reason Start Date Expiration Date Visits Requested Visits Authorized [id number] Receiving Office to Obtain Authorization 1 1 Encounter Details Date Type Department Care Team (Late st Contact Info) Description 09/17/2022 13:00 EST Office Visit [facility] Urology - [address] [phone] David Bhatt, DO [address] [place] [phone] Urine retention (Primary Dx); Benign localized prostatic hyperplasia with lower urinary tract symptoms (LUTS); Hematuria, unspecified type; BPH with obstruction/lower urinary tract symptoms; Prostate cancer screening Social History Tobacco Use Types Packs/Day Years [...] daily. 30 Capsule 11 09/17/2022 10/04/2023 documented in this encounter Progress Notes * David Bhatt, - 09/17/2022 1300 EST 1. ??Status post TURP for BPH??and??chronic retention(2013). 2. Gross hematuria 2021. ?? Urine c/s neg. CTU: 2021 neg. Ralph Garnica is a 72 y.o. male who presents for follow-up for urinary retention. He has not had any issues with urination since his last visit. He did end up developing a urinary tract infection after his last cystoscopy. No infections since that time. He voids 0 to once per night. He denies hematuria, dysuria, diarrhea, constipation. He says that sometimes when he urinates, there is a normal stream and a small drip that occurs at the same time. He feels like he is able to empty his bladder after each void. He denies urinary incontinence. He is currently scheduled to undergo a nuclear stresstest at [facility] due to persistent chest discomfort. Objective: Patient was in no acute distress. Normal respiratory rate. He had a PVR of 821 cc. Results for orders placed or performed in visit on 09/17/22 POCT URINE DIPSTICK, CLINITEK Result Value Ref Range Color, UA Yellow Yellow Clarity, UA Clear Clear Glucose, UA Negative Negative Bilirubin, UA Negative Negative Ketones, UA Negative Negative Specific [place], Urine 1.010 1.001 - 1.035 Blood, UA Negative Negative pH, UA 6.0 4.6 - 8.0 Protein, UA Negative Negative Urobilinogen, UA 0.2 0.2 - 1.0 mg/dL Nitrite, UA Negative Negative Leuk Esterase Negative Negative HN LAB COMMENT (CLINITEK, UR) Test performed at [facility] Assessment/Plan: Ralph Garnica presents with a history of urinary retention. He has a PVR of 821 cc today. His UA isnegative. He does not have any current voiding symptoms, however he does have an elevated PVR. We discussed starting tamsulosin 0.4 mg daily to see if this helps with reducing his current retained urine. He will try this for the next 3 months. He will also follow-up with a creatinine and screening PSA. He should follow-up in the clinic in 3 months with a PVR, UA, IPSS 2 see if the tamsulosin has improved his urinary retention. SANTOSH BORJAS DO 09/17/2022 13:52 documented in this encounter Plan of Treatment Upcoming Encounters Date Type Department Care Team (Late st Contact Info) Description 04/02/2024 11:15 EDT Telemedicine [facility] Urology - [address] [phone] David Bhatt DO [address] [place] [address] 5 [place] [phone] 07/12/2024 12:30 EST Hospital Encounter [place] [address] [facility] [address] [place] [id number] Rodrigo Noyola MD [address] [place] [phone] Paroxysmal atrial fibrillation ([facility]) 07/12/2024 12:30 EST - 07/12/2024 17:00 EST Surgery [place] [address] [facility] [address] [place] [id number] Rodrigo Noyola MD [address] [place] [phone] Albation A-Fib [[id number] (CPT??)] 07/23/2024 11:00 EST Office Visit [facility] [address] [place] [phone] Malini Euceda MD [address] [place] [phone] documented as of this encounter Procedures Procedure Name Priority Date/Time Associated Diagnosis Comments POCT URINE DIPSTICK, CLINITEK Routine 09/17/2022 13:08 EST Hematuria, unspecified type POCT CSN BARCODE URINE DIPSTICK Routine 09/17/2022 13:04 EST Hematuria, unspecified type POCT URINE CLINITEK (DIPSTICK) - DOES NOT REFLEX Routine 09/17/2022 13:04 EST Hematuria, unspecified type UROLOGY BLADDER SCAN Routine 09/17/2022 Benign localized prostatic hyperplasia with lower urinary tract symptoms (LUTS) documented in this encounter Results * BASIC METABOLIC PANEL (BMP) (09/17/2022 14:13 EST) Sodium 139 136 - 145 mmol/L 09/17/2022 15:29 [facility] Potassium 4.8 3.5 - 5.0 mmol/L 09/17/2022 15:29 [facility] Chloride 99 96 - 110 mmol/L 09/17/2022 15:29 [facility] CO2 Total 27 22 - 32 mmol/L 09/17/2022 15:29 [facility] Anion Gap 13 5 - 14 09/17/2022 15:29 [facility] Glucose 87 70 - 100 mg/dL 09/17/2022 15:29 [facility] Calcium 9.4 8.5 - 10.5 mg/dL 09/17/2022 15:29 [facility] BUN 20 10 - 26 mg/dL 09/17/2022 15:29 [facility] Creatinine 1.15 0.66 - 1.25 mg/dL 09/17/2022 15:29 [facility] eGFR 68 >60 mL/min/1.73 m2 09/17/2022 15:29 [facility] Blood VENOUS BLOOD / Unknown Venipuncture / Unknown 09/17/2022 14:13 EST 09/17/2022 14:57 EST David Bhatt DO CHEMISTRY & BLOOD G ORDERABLES [facility] [address] [place] [address] * PSA SCREEN (09/17/2022 14:13 EST) PSA 1.9 <=6.5 ng/mL 09/17/2022 17:05 [facility] Blood VENOUS BLOOD / Unknown Venipuncture / Unknown 09/17/2022 14:13 EST 09/17/2022 14:57 EST Narrative [facility] - 09/17/2022 17:05 EST NOTE: Serum PSA concentration should not be interpreted as absolute evidence for the presence or absence of malignant disease. Assayed on Siem[employer] XPT using chemiluminescent technology.??Values obtained by using different assay methods cannot be used interchangeably. David Bhatt DO CHEMISTRY & BLOOD G ORDERABLES [facility] [address] [place] [address] * POCT URINE DIPSTICK, CLINITEK (09/17/2022 13:08 EST) Color, UA Yellow Yellow 09/17/2022 13:10 [facility] Clarity, UA Clear Clear 09/17/2022 13:10 [facility] Glucose, UA Negative Negative 09/17/2022 13:10 [facility] Bilirubin, UA Negative Negative 09/17/2022 13:10 [facility] Ketones, UA Negative Negative 09/17/2022 13:10 [facility] Specific [place], Urine 1.010 1.001 - 1.035 09/17/2022 13:10 [facility] Blood, UA Negative Negative 09/17/2022 13:10 [facility] pH, UA 6.0 4.6 - 8.0 09/17/2022 13:10 [facility] Protein, UA Negative Negative 09/17/2022 13:10 [facility] Urobilinogen, UA 0.2 0.2 - 1.0 mg/dL 09/17/2022 13:10 [facility] Nitrite, UA Negative Negative 09/17/2022 13:10 EST [facility] Leuk Esterase Negative Negative 09/17/2022 13:10 EST [facility] HN LAB COMMENT (CLINITEK, UR) Test performed at [facility] 09/17/2022 13:10 EST [facility] Urine URINE SPECIMEN COLLECTION, CLEAN CATCH / Unknown 09/17/2022 13:08 EST 09/17/2022 13:10 EST David Bhatt DO POINT OF CARE TEST ORDERABLES Performing Organization Address City/[facility]/ZIP Co de Phone Number [facility] [address] [place] [address] * POCT CSN BARCODE URINE DIPSTICK (09/17/2022 13:04 EST) Urine URINE SPECIMEN COLLECTION, CLEAN CATCH / Unknown 09/17/2022 13:04 EST 09/17/2022 13:04 EST David Bhatt DO LAB INFO SERVICE AN D SUPPORT & PHONE RESULT [facility] [address] [place] [address] * UROLOGY BLADDER SCAN (09/17/2022) Bladder Scan 821 mL [facility] P OINT OF CARE Urine David Bhatt DO UROLOGY ORDERABLES [facility] POINT OF CARE documented in this encounter Visit Diagnoses Diagnosis Urine retention- Primary Retention of urine, unspecified Benign localized prostatic hyperplasia with lower urinary tract symptoms (LUTS) Benign localized hyperplasia of prostate with urinary obstruction and other lower urinary tract symptoms (LUTS) Hematuria, unspecified type BPH with obstruction/lower urinary tract symptoms Hypertrophy of prostate with urinary obstruction and other lower urinary tract symptoms (LUTS) Prostate cancer screening Special screening for malignant neoplasm of prostate Paroxysmal atrial fibrillation (HCC-CMS)- Primary Atrial fibrillation Paroxysmal atrial fibrillation (HCC-CMS) Atrial fibrillation documented in this encounter Care Teams Property Officer Relationship Specialty Start Date End Date Jessie Velasco [address] [place] [address] PCP - General Internal Medicine - Primary Care 08/26/21 Malini Euceda MD [address] [place] [phone] Consulting Clinician Cardiovascular Disease 11/12/21 documented as of this encounter
--- OUTSIDE RECORDS SUMMARY | 2024-03-27 17:26 | XMS_ITS | Encounter Summary ---
Author Organization [facility] Address [address] [place] [address] Care Team Providers Care Equipment Specialist Name Role Phone KristaJessie Frank Primary Care Provider [phone] Malini Euceda MD Unavailable [phone] Reason for Visit * Reason Onset Date Comments Medications Refill 03/28/2023 Encounter Details Date Type Department Care Team (Late st Contact Info) Description 03/28/[address] [facility] [address] [place] [address] Gillian Dickinson, ANDRE Medications Refill Social History Tobacco Use Types [...] (ELIQUIS) 5 mg tabletIndications:Atrial flutter, unspecified type ([facility]) Take 1 Tablet by mouth 2 times daily. 180 Tablet 3 03/28/2023 08/17/2023 documented in this encounter Miscellaneous Notes * Telephone Encounter - Gillian Dickinson, RN - 03/28/2023 1038 EDT Medication(s) Requested: Joaquinaqujf Preferred Pharmacy: [facility] Are visits in compliance? Yes Last Refill Date: 03/25/2022 Recent Visits Date Type Provider Dept 09/08/22 Office Visit Malini Euceda [place] [facility] 07/26/22 Office Visit Malini Euceda MD [facility] 02/10/22 Office Visit Malini Euceda MD [facility] 11/13/21 Office Visit Malini Euceda MD [facility] Showing recent visits within past 540 days with a meds authorizing provider and meeting all other requirements Today's Visits Date Type Provider Dept 03/28/23 Appointment Malini Euceda MD [facility] Showing today's visits with a meds authorizing provider and meeting all other requirements Future Appointments No visits were found meeting these conditions. Showing future appointments within next 150 days with a meds authorizing provider and meeting all other requirements GILLIAN DICKINSON RN 03/28/2023 10:40 documented in this encounter Plan of Treatment Upcoming Encounters Date Type Department Care Team (Late st Contact Info) Description 04/02/2024 11:15 EDT Telemedicine [facility] Urology - [address] [phone] David Bhatt DO [address] [place] [address] [address] [place] [phone] 07/12/2024 12:30 EST Hospital Encounter [place] [address] [address] [place] [id number] Rodrigo Noyola MD [address] [place] [phone] Paroxysmal atrial fibrillation (HCC-CMS) 07/12/2024 12:30 EST - 07/12/2024 17:00 EST Surgery [place] [address] [place] [id number] Rodrigo Noyola MD [address] [place] [phone] Bryce Woo [[id number] (CPT??)] 07/23/2024 11:[address] [facility] [address] [place], [place] [address] Malini Euceda MD [address] [place] [phone] documented as of this encounter Visit Diagnoses Diagnosis Atrial flutter, unspecified type (HCC-CMS)- Primary Paroxysmal atrial fibrillation (HCC-CMS)- Primary Atrial fibrillation Paroxysmal atrial fibrillation ([facility]) Atrial fibrillation documented in this encounter Discontinued Medications Medication Sig Discontinue Reason Start Date End Da te apixaban (ELIQUIS) 5 mg tabletIndications:Atrial flutter, unspecified type ([facility]) Take 1 Tablet by mouth 2 times daily. Reorder 03/25/2022 03/28/2023 documented as of this encounter Care Teams Equipment Specialist Relationship Specialty Start Date End Date Jessie Velasco [address] [place] [address] PCP - General Internal Medicine - Primary Care 08/26/21 Malini Euceda MD [address] [place] [address] 2[address] [place] [phone] Consulting Clinician Cardiovascular Disease 11/12/21 documented as of this encounter
--- OUTSIDE RECORDS SUMMARY | 2024-03-27 17:26 | XMS_ITS | Encounter Summary ---
Author Organization [facility] Address [address] [place] [address] Care Team Providers Care Therapist Asst Name Role Phone Jessie Velasco Primary Care Provider [phone] Malini Euceda MD Unavailable [phone] Reason for Visit * Reason Comments Follow-up Encounter Details Date Type Department Care Team (Late st Contact Info) Description 07/26/2022 13:30 EST [facility] [address] [place] [address] Malini Euceda MD 111 [facility] [address] [place] [phone] Non-ST elevation myocardial infarction (NSTEMI) ([facility]) (Primary Dx); Atrial flutter, unspecified type ([facility]) Social History Tobacco Use Types Packs/Day Years [...] Sign Reading Time Taken Comments Blood Pressure 132/88 07/26/2022 1312 EST Pulse 50 07/26/2022 1312 EST Temperature - - Respiratory Rate - - Oxygen Saturation 97% 07/26/2022 1312 EST Inhaled Oxygen Concentration - - Weight 101.6 kg (224 lb) 07/26/2022 1312 EST Height 180.3 cm (5' 10.98) 07/26/2022 1312 EST Body Mass Index 31.26 07/26/2022 1312 EST documented in this encounter Functional Status [...] No 09/16/2021 documented as of this encounter Patient Instructions * Patient Instructions* Malini Euceda MD - 07/26/2022 13:30 EST Please stop Plavix after 08/27/2022. documented in this encounter Progress Notes * Malini Euceda MD - 07/26/2022 1330 EST [facility] [place] Subjective: Chief Complaint(s): Follow-up HPI: 72-year-old man with a history of type 2 diabetes, hypertension, hyperlipidemia with recent NSTEMI (08/2021) who presents for routine care. Since his last visit, he has struggled with repeat UTIs andonce episode of urinary bleeding (which has resolved). Cut his carvedilol down to 1/2 pill of 3.125due to fatigue. Often taking it just once a day. He has also increased his level of activity, whichhas helped his activity level. No anginal pain or significant shortness of breath. Able to shovel the snow recently without issue. Cardiac History 08-26-2021: Admitted with chest pressure and was found to have a troponin that peaked at 1.2. His left heart catheterization was notable for moderate disease multiple vessels, however no clear culprit. No stents placed. Treated medically with consideration of microvascular disease. Outpatient Medications Marked as Taking for the 07/26/22 encounter (Office Visit) with Malini Euceda MD Medication Sig ??? apixaban (ELIQUIS) 5 mg tablet Take 1 Tablet by mouth 2 times daily. ??? atorvastatin (LIPITOR) 40 mg tablet Take 1 Tablet by mouth every evening. ??? [DISCONTINUED] carvediloL (COREG) 3.125 mg tablet Take 1 Tablet by mouth 2 times daily with breakfast and dinner. ??? clopidogreL (PLAVIX) 75 mg tablet Take 1 Tablet by mouth daily. ??? metFORMIN (GLUCOPHAGE) 1,000 mg tablet Take 1,000 mg by mouth every morning. ??? metFORMIN (GLUCOPHAGE) 1,000 mg tablet Take 500 mg by mouth every evening. ??? Uxssg-1-SUE-EPA-Fish Oil (FISH OIL) 1,200 (144-216) mg capsule [...] of Systems Constitutional: Negative for malaise/fatigue. Cardiovascular: Negative for palpitations, claudication and leg swelling. Objective: Examination: Vitals: BP 132/88 (BP Cuff Location: Right arm, BP Patient Position: Sitting, BP Cuff Sizes: Adult, regular) Pulse 50 Ht 180.3 cm (70.98) Wt (!) 101.6 kg (224 lb) SpO2 97% BMI 31.26 kg/m?? Body mass index is 31.26 kg/m??. Physical Exam Constitutional: Appearance: Normal appearance. [...] recent NSTEMI (08/2021) who presents for routine follow-up. NSTEMI: Diagnosed in with troponin peaking at 1.2. Left heart cath showed moderate lesions without significant culprit. Managing medically with Plavix/Eliquis (concurrent atrial flutter). Preserved ejection fraction. Possible microvascular component. -Advised to drop Plavix at one year (08/26) and will remain on Eliquis monotherapy -Continue Lipitor 40 mg, LDL at goal of less than 70 - already working diligently on diet modification - Ok to stop Carvedilol (can only tolerate 1/2 pill of 3.125, which is likely having little effect on BP/HR) Atrial flutter: Noted on recent Ziopatch- 1% burden. Asymptomatic. On Eliquis. Moderate aortic stenosis: No symptoms. Will need repeat echocardiogram 08/2022. Return to clinic in 8 months I spent a total of 30 minutes on the date of this encounter as indicated in the above progress note. Malini Euceda MD documented in this encounter Plan of Treatment Upcoming Encounters Date Type Department Care Team (Late st Contact Info) Description 04/02/2024 11:15 EDT Telemedicine [facility]rology - [place] [address] [place] [address] David Bhatt, 111 [facility], Level [address] [place] [phone] 07/12/2024 12:30 EST Hospital Encounter [place] [address] EP Lab [address] [place], [place] [phone] Rodrigo Noyola MD 111 [facility] Level [address] [place] [phone] Paroxysmal atrial fibrillation (HCC-CMS) 07/12/2024 12:30 EST - 07/12/2024 17:00 EST Surgery [place] [address] EP Lab [address] [place], [place] [phone] Rodrigo Noyola MD [address] [phone] [place] A-Fib [[id number] (CPT??)] 07/23/2024 11:00 EST [facility] [address] [place] [address] Malini Euceda MD [address] [place] [phone] documented as of this encounter Visit Diagnoses Diagnosis Non-ST elevation myocardial infarction (NSTEMI) (HCC-CMS)- Primary Acute myocardial infarction, subendocardial infarction, episode of care unspecified Atrial flutter, unspecified type (HCC-CMS) Paroxysmal atrial fibrillation (HCC-CMS)- Primary Atrial fibrillation Paroxysmal atrial fibrillation (HCC-CMS) Atrial fibrillation documented in this encounter Discontinued Medications Medication Sig Discontinue Reason Start Date End Da te carvediloL (COREG) 3.125 mg tablet Take 1 Tablet by mouth 2 times daily with breakfast and dinner. Therapy completed 05/31/2022 07/26/2022 documented as of this encounter Care Teams Therapist Asst Relationship Specialty Start Date End Date Jessie Velasco [address] [place], [place] [phone] PCP - General Internal Medicine - Primary Care 08/26/21 Malini Euceda MD [address] [place] [address]A [address] [place] [phone] Consulting Clinician Cardiovascular Disease 11/12/21 documented as of this encounter
--- OUTSIDE RECORDS SUMMARY | 2024-03-27 17:26 | XMS_ITS | Encounter Summary ---
Author Organization [facility] Address [address] [place] [address] Care Team Providers Care Record Searcher Name Role Phone Jessie Velasco Frank Primary Care Provider Malini Euceda MD Unavailable [phone] Reason for Visit * Reason Onset Date Comments Urinary Tract Infection 06/13/2022 Encounter Details Date Type Department Care Team (Late st Contact Info) Description 06/13/2022 Telephone [facility] [address] [place], [place] [phone] Forest Romo MD [address] [place] [phone] Urinary Tract Infection Social History Tobacco Use Types Packs/Day Years [...] Dispensed Refills Start Date End Da te sulfamethoxazole-trimetho prim (BACTRIM/CO-TRIMOXAZOLE DS) 800-160 mg per tablet Take 1 Tablet by mouth every 12 hours for 7 days. 14 Tablet 06/13/2022 06/20/2022 documented in this encounter Miscellaneous Notes * Telephone Encounter - Forest Romo MD - 06/13/2022 1227 EDT Patient calls in today as he was unable to pick his prescription up yesterday as a pharmacist he was closed. Today he has noticed gross hematuria. He is able to urinate, no symptoms of urinary retention. I expect his gross hematuria is from the infection. I recommend picking up the prescription today. We will send it to another pharmacy that is open. FOREST ROMO MD 06/13/2022 12:28 documented in this encounter Plan of Treatment Upcoming Encounters Date Type Department Care Team (Late st Contact Info) Description 04/02/2024 11:15 EDT Telemedicine [facility] [place] [address] David Bhatt DO 111 [facility], Level [address] [place] [phone] 07/12/2024 12:30 EST Hospital Encounter [place] [address] EP Lab [address] [place], [place] [phone] Rodrigo Noyola MD [address] [place] [phone] Paroxysmal atrial fibrillation ([facility]) 07/12/2024 12:30 EST - 07/12/2024 17:00 EST Surgery [place] [address] [address] [place] [id number] Rodrigo Noyola MD [address] [place] [phone] Albation A-Fib [[id number] (CPT??)] 07/23/2024 11:00 EST Office Visit [facility] Cardiology Clinic [address] [place] [address] Malini Euceda MD [address] [place] [phone] documented as of this encounter Visit Diagnoses Not on filedocumented in this encounter Care Teams Record Searcher Relationship Specialty Start Date End Date Jessie Velasco [address] [place] [address] PCP - General Internal Medicine - Primary Care 08/26/21 Malini Euceda MD [address] [place] [address]A [address] [place] [phone] Consulting Clinician Cardiovascular Disease 11/12/21 documented as of this encounter
--- OUTSIDE RECORDS SUMMARY | 2024-03-27 17:26 | XMS_ITS | Encounter Summary ---
Author Organization [facility] Address [address] [place] [address] Care Team Providers Care Ed Transporter Name Role Phone KristaJessie Frank Primary Care Provider Malini Euceda MD Unavailable [phone] Reason for Visit * Reason Onset Date Comments Medications Refill 06/29/2022 Follow-up 06/29/2022 Encounter Details Date Type Department Care Team (Late st Contact Info) Description 06/29/2022 Telephone [facility] Urology - [address] [phone] David Bhatt, DO 111 [facility], Level 5 [place] [address] Medications Refill; Follow-up Social History Tobacco Use Types Packs/Day Years [...] encounter Miscellaneous Notes * Telephone Encounter - Susie Fernandez - 06/29/2022 1617 EDT Pt called because he went to Urgent Care in [facility]. Wanted to make sure that e knew that he was prescribed a medication by Dr. Camejo. Unsure of medication spelling but it is 500 mg Please call back to discuss. * Telephone Encounter - Carri Harris - 06/29/2022 1525 EDT Medication(s) Requested: FINASTERIDE Preferred Pharmacy: [facility] Is patient out of medication? No Last Refill Date: 06/16/22 Last Visit Date with Ordering Provider: 06/16/22 Next Non-Acute Visit Date Scheduled with Care Team: No. Carri Harris 06/29/2022 15:25 documented in this encounter Plan of Treatment Upcoming Encounters Date Type Department Care Team (Late st Contact Info) Description 04/02/2024 11:15 EDT Telemedicine [facility] Urology - [address] [id number] David Bhatt DO 111 [facility], [facility], Level 5 [place] [phone] 07/12/2024 12:30 EST Hospital Encounter [place] [address] [address] [place] [address] [phone] Rodrigo Noyola MD [address] [place] [phone] Paroxysmal atrial fibrillation ([facility]) 07/12/2024 12:30 EST - 07/12/2024 17:00 EST Surgery [place] [address] EP [address] [place] [address] [id number] Rodrigo Noyola MD [address] [place] [phone] Albation A-Fib [[id number] (CPT??)] 07/23/2024 11:00 EST Office Visit [facility] Cardiology Clinic [address] [place] [address] [phone] Malini Euceda MD [address] [place] [phone] documented as of this encounter Visit Diagnoses Not on filedocumented in this encounter Care Teams Ed Transporter Relationship Specialty Start Date End Date Jessie Velasco 4 [facility] [place], [place] [phone] PCP - General Internal Medicine - Primary Care 08/26/21 Malini Euceda MD [address] [place] [address] 21 [place] [phone] Consulting Clinician Cardiovascular Disease 11/12/21 documented as of this encounter
--- OUTSIDE RECORDS SUMMARY | 2024-03-27 17:26 | XMS_ITS | Encounter Summary ---
Author Organization [facility] Address [address] [place] [address] Care Team Providers Care Judge Clerk Name Role Phone KristaJessie Frank Primary Care Provider Malini Euceda MD Unavailable [phone] Reason for Visit * Reason Onset Date Comments Appointment Related 12/24/2022 Update 12/24/2022 Encounter Details Date Type Department Care Team (Late st Contact Info) Description 12/24/2022 Telephone [facility] Urology - [address] [phone] David Bhatt, DO 111 [facility], Level 5 [place] [address] Appointment Related; Update Social History Tobacco Use Types Packs/Day Years [...] encounter Miscellaneous Notes * Telephone Encounter - Jeane Garcia - 12/24/2022 0907 EDT Noted * Telephone Encounter - Nicole Ryder - 12/24/2022 0837 EDT Patient called and states he was confirming his appointment. Cardiac Care Nurse updated patient appointment reminder preferances. * Telephone Encounter - Virginia Schmidt - 12/24/2022 0751 EDT Patient left a voicemail this morning at 7:32 am regarding his appt today. If my interpretation of the message is correct, he is confirming his appt, but the tank carpenter below is unclear. Please reach out to patient. Insurance Adviser of voicemail; This is [facility] [phone]. I have an appointment today at 14. 45 with Doctor pair of boateng. If there is some difference in what we're saying I'm saying please give me a call back I just got your message thank you. documented in this encounter Plan of Treatment Upcoming Encounters Date Type Department Care Team (Late st Contact Info) Description 04/02/2024 11:15 EDT Telemedicine [facility] Urology - [address] [phone] David Bhatt DO [address] [place] [address] 5 [place] [phone] 07/12/2024 12:30 EST Hospital Encounter [place] [address] EP Lab [address] [place] [address] [phone] Rodrigo Noyola MD [address] [place] [phone] Paroxysmal atrial fibrillation ([facility]) 07/12/2024 12:30 EST - 07/12/2024 17:00 EST Surgery [place] [address] EP Lab [address] [place] [address] [id number] Rodrigo Noyola MD [address] [place] [phone] Albation A-Fib [[id number] (CPT??)] 07/23/2024 11:00 EST Office Visit [facility] Cardiology Clinic [address] [place], [place] [address] Malini Euceda MD [address] [place] [phone] documented as of this encounter Visit Diagnoses Not on filedocumented in this encounter Care Teams Judge Clerk Relationship Specialty Start Date End Date Jessie Velasco 4 [place] [address] PCP - General Internal Medicine - Primary Care 08/26/21 Malini Euceda MD [address] [place] [address] 21 [place] [phone] Consulting Clinician Cardiovascular Disease 11/12/21 documented as of this encounter
--- OUTSIDE RECORDS SUMMARY | 2024-03-27 17:26 | XMS_ITS | Encounter Summary ---
Author Organization [facility] Address [address] [place] [address] Care Team Providers Care Heating And Ventilating Drafter Name Role Phone Jessie Velasco Primary Care Provider [phone] Malini Euceda MD Unavailable [phone] Encounter Details Date Type Department Care Team (Latest Contact Info) Description 04/18/2023 Travel Social History Tobacco Use Types Packs/Day [...] Description 04/02/2024 11:15 EDT Telemedicine [facility] Urology - [address] [phone] David Bhatt DO 111 [facility] 5 [place] [phone] 07/12/2024 12:30 EST Hospital Encounter [place] [address] EP Lab [address] [place] [address] [phone] Rodrigo Noyola MD [address] [place] [phone] Paroxysmal atrial fibrillation ([facility]) 07/12/2024 12:30 EST - 07/12/2024 17:00 EST Surgery [place] [facility] EP Lab [address] [place], [place] [phone] Rodrigo Noyola MD [address] [place] [phone] Bryce Woo [[id number] (CPT??)] 07/23/2024 11:00 EST Office Visit [facility] Cardiology Clinic [address] [place] [address] [phone] Malini Euceda MD 111 [facility], [facility] [place], Level 1 [place] [phone] documented as of this encounter Visit Diagnoses Not on filedocumented in this encounter Care Teams Heating And Ventilating Drafter Relationship Specialty Start Date End Date Jessie Velasco 4 [place], [place] [phone] PCP - General Internal Medicine - Primary Care 08/26/21 Malini Euceda MD [address] [place] [address] 2-[address] [place] [phone] Consulting Clinician Cardiovascular Disease 11/12/21 documented as of this encounter
--- OUTSIDE RECORDS SUMMARY | 2024-03-27 17:26 | XMS_ITS | Encounter Summary ---
Author Organization [facility] Address [address] [place] [address] Care Team Providers Care Ginner Name Role Phone Jessie Velasco Primary Care Provider [phone] Malini Euceda MD Unavailable [phone] Reason for Referral * Cardiology (Routine/Next Available) - Authorization Not Required Specialty Diagnoses / Procedures Referred By [facility] Referred To Contact Diagnoses Nonrheumatic aortic valve stenosis Procedures TRANSTHORACIC ECHO (TTE) COMPLETE NM ECHO HEART XTHORACIC,COMPLETE W DOPPLER Malini Euceda MD [address] [place] [phone] [facility] Referral ID Status Reason Start Date Expiration Date Visits Requested Visits Authorized [id number] Authorization Not Required 03/28/2023 1 1 Reason for Visit * Reason Comments Follow-up Encounter Details Date Type Department Care Team (Late st Contact Info) Description 03/28/2023 15:[address] [facility] Cardiology Clinic [address] [place] [address] Malini Euceda MD [address] [place] [phone] Nonrheumatic aortic valve stenosis (Primary Dx); Acute coronary thrombosis not resulting in myocardial infarction ([facility]) Social History Tobacco Use Types Packs/Day Years [...] Sign Reading Time Taken Comments Blood Pressure 132/66 03/28/2023 1514 EDT Pulse 78 03/28/2023 1514 EDT Temperature - - Respiratory Rate - - Oxygen Saturation 97% 03/28/2023 1514 EDT Inhaled Oxygen Concentration - - Weight 102.3 kg (225 lb 9.6 oz) 03/28/2023 1514 EDT Height 180.3 cm (5' 11) 03/28/2023 1514 EDT Body Mass Index 31.46 03/28/2023 1514 EDT documented in this encounter Functional Status [...] Progress Notes * Malini Euceda MD - 03/28/2023 1530 EDT [facility] Office Visit Subjective: Chief Complaint(s): Follow-up HPI: 72-year-old man with a history of type 2 diabetes, hypertension, hyperlipidemia with recent NSTEMI (08/2021) who presents for routine follow-up. At our last visit 6 months ago he was endorsing chest discomfort. He underwent a PET stress test which showed no perfusion defects and normal myocardial blood flow. Since that time, the chest pain has resolved without intervention. He is now off his Plavix. He is overall doing quite well. No exertional chest discomfort, significant shortness of breath,lower extremity edema. Denies heart failure symptoms. Cardiac History 08-26-2021: Admitted with chest pressure and was found to have a troponin that peaked at 1.2. His left heart catheterization was notable for moderate disease multiple vessels, however no clear culprit. No stents placed. Treated medically. Outpatient Medications Marked as Taking for the 03/28/23 encounter (Office Visit) with Delon Euceda MD Medication Sig ??? apixaban (ELIQUIS) 5 mg tablet Take 1 Tablet by mouth 2 times daily. ??? atorvastatin (LIPITOR) 40 mg tablet Take 1 Tablet by mouth every evening. ??? losartan (COZAAR) 25 mg tablet Take [...] to take 3rd tablet, call 911) ??? Qeihp-0-NOU-EPA-Fish Oil (FISH OIL) 1,200 (144-216) mg capsule [...] and leg swelling. Objective: Examination: Vitals: BP 132/66 (BP Cuff Location: Right arm, BP Patient Position: Sitting, BP Cuff Sizes: Adult, regular) Pulse 78 Ht 180.3 cm (71) Wt (!) 102.3 kg (225 lb 9.6 oz) SpO2 97% BMI 31.46 kg/m?? Body mass index is 31.46 kg/m??. Physical Exam Constitutional: Appearance: Normal appearance. [...] 08/27/2021 BUN Date Value Ref Range Status 09/17/2022 20 10 - 26 mg/dL Final 01/30/2014 20 10 - 26 mg/dl Final Creatinine Date Value Ref Range Status 09/17/2022 1.15 0.66 - 1.25 mg/dL Final 01/30/2014 1.20 0.66 - 1.25 mg/dl Final Potassium Date Value Ref Range Status 09/17/2022 4.8 3.5 - 5.0 mmol/L Final 01/30/2014 4.6 [...] LDL at goal of less than 70. Lipids today. Atrial flutter: Noted on recent Ziopatch- 1% burden. Asymptomatic. On Eliquis. Moderate aortic stenosis: No symptoms. Last TTE 08/26. Needs repeat TTE 08/2023. Return to clinic in 6 months I spent a total of 30 minutes on the date of this encounter as indicated in the above progress note. Malini Euceda MD documented in this encounter Plan of Treatment Upcoming Encounters Date Type Department Care Team (Late st Contact Info) Description 04/02/2024 11:15 EDT Telemedicine [facility] Urology - [address] [phone] David Bhatt, DO 111 [facility], Level [address] [place] [phone] 07/12/2024 12:30 EST Hospital Encounter [place] [address] EP Lab [address] [place], [place] [phone] Rodrigo Noyola MD [address] [phone] Paroxysmal atrial fibrillation ([facility]) 07/12/2024 12:30 EST - 07/12/2024 17:00 EST Surgery [place] [address] EP Lab [address] [place], [place] [phone] Rodrigo Noyola MD [address] [place] [phone] Albation Chilo [[id number] (CPT??)] 07/23/2024 11:[address] [facility] Cardiology Clinic [address] [place] [address] Malini Euceda MD [address] [place] [phone] Scheduled Orders Name Type Priority Associated Diagnoses Order Schedule TRANSTHORACIC ECHO (TTE) COMPLETE Echocardiography Routine Nonrheumatic aortic valve stenosis Expected: 03/28/2023, Expires: 03/28/2025 documented as of this encounter Results * LIPID PROFILE (INCLUDES CHOLESTEROL, TRIGLYCERIDES, HDL, LDL) (03/28/2023 16:03 EDT) Cholesterol 127 <200 mg/dL 03/28/2023 17:07 EDT [facility] Comment:Note that therapeuti c goals will differ between patients based on cardiac risk factors and current medical therapy. HDL 43 >=40 mg/dL 03/28/2023 17:07 EDT [facility] Comment:Note that therapeuti c goals will differ between patients based on cardiac risk factors and current medical therapy. LDL, Calculated 58 <160 mg/dL 17:07 EDT [facility] Comment:Note that therapeuti c goals will differ between patients based on cardiac risk factors and current medical therapy. Triglyceride 130 <=150 mg/dL 03/28/2023 17:07 T [facility] Comment:Note that therapeuti c goals will differ between patients based on cardiac risk factors and current medical therapy. Chol/HDL Ratio 3.0 See Note 03/28/2023 17:07 T [facility] Comment: NOTE: Desirable Ratio = <4.1 Patient At Risk Ratio = >5.0(Males) ?>6.0(Females) Non HDL Cholesterol 84 <160 mg/dL 03/28/2023 17:07 [facility] Comment:Note that therapeuti c goals will differ between patients based on cardiac risk factors and current medical therapy. Blood VENOUS BLOOD / Unknown Venipuncture / Unknown 03/28/2023 16:03 EDT 03/28/2023 16:30 EDT Malini Euceda MD CHEMISTRY & BLOOD GA S ORDERABLES Performing Organization Address City/State/[facility] Co de Phone Number [facility] [address] [place] [address] documented in this encounter Visit Diagnoses Diagnosis Nonrheumatic aortic valve stenosis- Primary Aortic valve disorders Acute coronary thrombosis not resulting in myocardial infarction (HCC-CMS) Acute coronary occlusion without mycocardial infarction Paroxysmal atrial fibrillation (HCC-CMS)- Primary Atrial fibrillation Paroxysmal atrial fibrillation (HCC-CMS) Atrial fibrillation documented in this encounter Care Teams Ginner Relationship Specialty Start Date End Date Jessie Velasco [address] [place] [address] PCP - General Internal Medicine - Primary Care 08/26/21 Malini Eucdea MD 130 [facility] [address] [place] [phone] Consulting Clinician Cardiovascular Disease 11/12/21 documented as of this encounter
--- OUTSIDE RECORDS SUMMARY | 2024-03-27 17:27 | XMS_ITS | Encounter Summary ---
Author Organization [facility] Address [address] [place] [address] Care Team Providers Care Bessemer Regulator Name Role Phone Jessie Velasco Frank Primary Care Provider Malini Euceda MD Unavailable [phone] Reason for Visit * Reason Onset Date Comments New/Evolving Symptoms 06/03/2022 Encounter Details Date Type Department Care Team (Late st Contact Info) Description 06/03/2022 Telephone [facility] Urology - [address] [phone] David Bhatt, DO 111 [facility], Level [address] [place] [phone] New/Evolving Symptoms Social History Tobacco Use Types [...] Miscellaneous Notes * Telephone Encounter - Micaela Matos RN - 06/03/2022 0952 EDT TC received from pt. Pt was dilated on 05/28 during cystoscopy. Pt had hematuria 24 hours after the procedure which has resolved. The smell of urine is different. Urine is yellow and cloudy. Pt deniesdysuria, frequency, urgency, and flank/back pain. Pt instructed to increase fluid intake and call back if any other symptoms develop. Explained to pt that we do not collect urine to check for infection based on smell only. documented in this encounter Plan of Treatment Upcoming Encounters Date Type Department Care Team (Late st Contact Info) Description 04/02/2024 11:15 EDT Telemedicine [facility] Urology - [address] [phone] David Bhatt, DO 111 [facility], Level [address] [place] [address] 07/12/2024 12:30 EST Hospital Encounter [place] [address] EP Lab [address] [place], [place] [phone] Rodrigo Noyola MD [address] [place] [phone] Paroxysmal atrial fibrillation ([facility]) 07/12/2024 12:30 EST - 07/12/2024 17:00 EST Surgery [place] [address] EP Lab [address] [place], [place] [phone] Rodrigo Noyola MD [address] [place] [phone] Albcj Woo [[id number] (CPT??)] 07/23/2024 11:00 EST Office Visit [facility] Cardiology Clinic [address] [place] [address] Malini Euceda MD [address] [place] [phone] documented as of this encounter Visit Diagnoses Not on filedocumented in this encounter Care Teams Bessemer Regulator Relationship Specialty Start Date End Date Jessie Velasco [address] [place] [address] PCP - General Internal Medicine - Primary Care 08/26/21 Malini Euceda MD 130 [facility] [address] [phone] Consulting Clinician Cardiovascular Disease 11/12/21 documented as of this encounter
--- OUTSIDE RECORDS SUMMARY | 2024-03-27 17:27 | XMS_ITS | Encounter Summary ---
Author Organization [facility] Address [address] [place] [address] Care Team Providers Care Experimental Rocket Sled Mechanic Name Role Phone MercyrosieJessie Frank Primary Care Provider Malini Euceda MD Unavailable [phone] Reason for Visit * Reason Onset Date Comments Appointment Related 04/14/2022 Encounter Details Date Type Department Care Team (Late st Contact Info) Description 04/14/2022 Telephone [facility] Urology - [address] [address] David Bhatt, DO 111 [facility], Level [address] [place] [phone] Appointment Related Social History Tobacco Use Types [...] encounter Miscellaneous Notes * Telephone Encounter - Virginia Schmidt - 04/14/2022 1607 EDT I left a message for Ralph to call and schedule a consult with Dr Bhatt documented in this encounter Plan of Treatment Upcoming Encounters Date Type Department Care Team (Late st Contact Info) Description 04/02/2024 11:15 EDT Telemedicine [facility] Urology - [facility] [address] [place], [place] [address] David Bhatt DO 111 [facility], Level [address] [place] [address] 07/12/2024 12:30 EST Hospital Encounter [place] [address] EP Lab [address] [place], [place] [phone] Rodrigo Noyola MD 111 [facility], Level 1 [place] [phone] Paroxysmal atrial fibrillation ([facility]) 07/12/2024 12:30 EST - 07/12/2024 17:00 EST Surgery [place] [address] EP Lab [address] [place] [address] Rodrigo Noyola MD [address] [phone] Albation A-Fib [[id number] (CPT??)] 07/23/2024 11:00 EST Office Visit [facility] Cardiology Clinic [address] [place] [address] Malini Euceda MD [address] [place] [phone] documented as of this encounter Visit Diagnoses Not on filedocumented in this encounter Care Teams Experimental Rocket Sled Mechanic Relationship Specialty Start Date End Date Jessie Velasco [address] [place] [address] [phone] PCP - General Internal Medicine - Primary Care 08/26/21 Malini Euceda MD [address] [place] [address]-[address] [place] [address] Consulting Clinician Cardiovascular Disease 11/12/21 documented as of this encounter
--- OUTSIDE RECORDS SUMMARY | 2024-03-27 17:27 | XMS_ITS | Encounter Summary ---
Author Organization [facility] Address [address] [place] [address] Care Team Providers Care Tester Electronic Scale Name Role Phone Krista Jessie Frank Primary Care Provider [phone] Malini Euceda MD Unavailable [phone] Reason for Referral * Cardiology (Routine/Next Available) - Specialty Report Received Specialty Diagnoses / Procedures Referred By Janie weinstein Referred To Contact Diagnoses Palpitations Procedures ZIO PATCH Suiter, Preethi Siu MD [address] [place] [address] [facility] Referral ID Status Reason Start Date Expiration Date V isits Requested Visits Authorized [id number] Specialty Report Received 11/23/2021 02/02/2022 1 1 Encounter Details Date Type Department Care Team (Late st Contact Info) Description 11/13/2021 Orders Only [facility] Cardiology Clinic [address] [place] [address] Kaitlyn Eastman, ANDRE [address] [place] [address] [facility] [place] [address] Palpitations (Primary Dx) Social History Tobacco Use Types [...] as of this encounter Progress Notes * aKitlyn Eastman, ANDRE - 11/13/2021 1618 EST Order placed per documented in this encounter Plan of Treatment Upcoming Encounters Date Type Department Care Team (Late st Contact Info) Description 04/02/2024 11:15 EDT Telemedicine [facility] [place] [address] David Bhatt, DO [address] [place] [address], [address] [place] [phone] 07/12/2024 12:30 EST Hospital Encounter [place] [address] EP Lab 111 [facility], [place] [phone] Rodrigo Noyola MD [address] [phone] Paroxysmal atrial fibrillation ([facility]) 07/12/2024 12:30 EST - 07/12/2024 17:00 EST Surgery [place] [address] EP Lab 111 [facility], [place] [phone] Rodrigo Noyola MD [address] [place] [address], [place] [address] Albation A-Fib [[id number] (CPT??)] 07/23/2024 11:00 EST Office Visit [facility] Cardiology Clinic [address] [place], [place] [phone] Malini Euceda MD [address] [place] [address], [place] [phone] documented as of this encounter Results * EXTENDED HOLTER - 14 DAY PLACED IN CLINIC (11/30/2021 10:31 EDT) Anatomical Region Laterality Modality Holter Narrative 12/20/2021 14:21 EDT Indication: Palpitations 1. Baseline normal sinus rhythm 2. Frequent supraventricular ectopy: Frequent PACs (5.7%). Three episodes of atrial flutter (total burden 1%). Longest duration of atrial flutter was 3 hours and 32 minutes. Heart rate range 65-153 with an average of 110 bpm. 3. Rare ventricular ectopy (< 1.0%): Rare PVCs. Three episodes of ventricular tachycardia. The run with the fastest interval lasting 6 beats with a max rate of 184 bpm. 4. No pauses > 3.0 seconds. No AV block. 5. No patient events Preethi Lieberman MD CARDIAC SERV ICES ORDERABLES documented in this encounter Visit Diagnoses Diagnosis Palpitations- Primary Palpitations Paroxysmal atrial fibrillation (HCC-CMS)- Primary Atrial fibrillation Paroxysmal atrial fibrillation (HCC-CMS) Atrial fibrillation documented in this encounter Care Teams Tester Electronic Scale Relationship Specialty Start Date End Date Jessie Velasco 4 [facility] [place] [address] PCP - General Internal Medicine - Primary Care 08/26/21 Malini Euceda MD [address] [place] [address] [address] [place] [phone] Consulting Clinician Cardiovascular Disease 11/12/21 documented as of this encounter
--- OUTSIDE RECORDS SUMMARY | 2024-03-27 17:27 | XMS_ITS | Encounter Summary ---
Author Organization [facility] Address [address] [place] [address] Care Team Providers Care Biomedical Analytical Scientist Name Role Phone Jessie Velasco Primary Care Provider [phone] Malini Euceda MD Unavailable [phone] Encounter Details Date Type Department Care Team (Late st Contact Info) Description 06/10/2022 10:20 EDT Phlebotomy Only [facility] - Outpatient Phlebotomy Drawing [address] [place] [address] Lab, [facility] Op Phlebotomy Frequency of urination; Dysuria Social History Tobacco Use Types Packs/Day Years [...] Contact Info) Description 04/02/2024 11:[address] [facility] Urology - [address] [phone] David Bhatt, 111 [facility] 5 [place] [phone] 07/12/2024 12:30 [facility] Hospital Encounter [place] [address] EP Lab [address] [place] [address] [phone] Rodrigo Noyola MD [address] [place] [phone] Paroxysmal atrial fibrillation (HCC-CMS) 07/12/2024 12:30 EST - 07/12/2024 17:00 EST Surgery [place] 1 EP Lab [address] [place], [place] [phone] Rodrigo Noyola MD [address] [place] [phone] Albation A-Fib [[id number] (CPT??)] 07/23/2024 11:[address] [facility] Cardiology Clinic [address] [place] [address] Malini Euceda MD 111 [facility] [place], Level 1 [place] [address] documented as of this encounter Procedures Procedure Name Priority Date/Time Associated Diagnosis Comments UA WITH REFLEX SEDIMENT Routine 06/10/2022 10:21 EDT Frequency of urination Dysuria URINE SEDIMENT (MICRO) WITHOUT REFLEX TO CULTURE Today 06/10/2022 10:21 EDT Frequency of urination Dysuria BACTERIAL CULTURE, URINE Routine 06/10/2022 10:21 EDT Frequency of urination Dysuria documented in this encounter Results * (ABNORMAL) URINE SEDIMENT (MICRO) WITHOUT REFLEX TO CULTURE (06/10/2022 10:21 EDT) Urine RBC Count, Manual 0 - 2 0 - 2, None Seen Cells/HPF 06/10/2022 17:05 [facility] Urine WBC Count 11 - 50(A) 0 - 3, None Seen Cells/HPF 06/10/2022 17:05 [facility] Urine Squamous Count, Manual None Seen None Seen Cells/HPF 06/10/2022 17:05 [facility] Urine Bacteria Count, Manual Many(A) None Seen Bacteria/ HPF 06/10/2022 17:05 [facility] Urine Crystals Many Triple Phosphate Crystals(A) None Seen 06/10/2022 17:05 [facility] Additional Findings Amorphous material present(A) None Seen 06/10/2022 17:05 [facility] Urine URINE SPECIMEN COLLECTION, CLEAN CATCH / Unknown Urine Collect / Unknown 06/10/2022 10:21 EDT 06/10/2022 11:08 EDT Narrative [facility] - 06/10/2022 17:05 EDT Urine Sediment Analysis results are unreliable on urines that are unrefrigerated for >2 hrs or refrigerated >8 hrs. David Bhatt DO URINALYSIS ORDERABL ES [facility] [address] [place] [address] * (ABNORMAL) UA WITH REFLEX SEDIMENT (06/10/2022 10:21 EDT) Color UA Yellow Colorless to Dark Yellow [facility]2022 [facility] Clarity UA Slightly Cloudy(A) Clear 06/10/2022 17:05 [facility] Glucose UA 3+(A) Negative 06/10/2022 [facility] Bilirubin UA Negative Negative 06/10/2022 17:05 EDT [facility] Ketones UA Negative Negative 06/10/2022 17:05 EDT [facility] Specific [place], Urine 1.010 1.001 - 1.035 06/10/2022 17:05 [facility] Blood UA Negative Negative 06/10/2022 17:05 [facility] pH, UA 8.5(H) 4.6 - 8.0 06/10/2022 17:05 [facility] Protein UA Trace(A) Negative 06/10/2022 17:05 EDT [facility] Urobilinogen UA 0.2 0.2 , 1.0, Normal mg/dL 06/10/2022 17:05 [facility] Nitrite UA Positive(A) Negative 06/10/2022 17:05 EDT [facility] Leukocyte Esterase UA Negative Negative 06/10/2022 17:05 [facility] Urine URINE SPECIMEN COLLECTION, CLEAN CATCH / Unknown Urine Collect / Unknown 06/10/2022 10:21 EDT 06/10/2022 11:08 EDT David Bhatt DO URINALYSIS ORDERABL ES Performing Organization Address City/[facility]/ZIP Co de Phone Number [facility] [address] [place] [address] * BACTERIAL CULTURE, URINE (06/10/2022 10:21 EDT) Organism ID [id number] to 100,000 CFU/ml VITEK SUSCEPTIBILITY 06/11/2022 11:27 EDT [facility] Comment:Usual urogenital jodee ra. Urine URINE SPECIMEN COLLECTION, CLEAN CATCH / Unknown Urine Collect / Unknown 06/10/2022 10:21 EDT 06/10/2022 11:08 EDT David Bhatt DO MICROBIOLOGY - GENE RAL ORDERABLES Performing Organization Address City/[facility]/ZIP Co de Phone Number [facility] [address] [place] [address] documented in this encounter Visit Diagnoses Diagnosis Frequency of urination Urinary frequency Dysuria Paroxysmal atrial fibrillation (HCC-CMS)- Primary Atrial fibrillation Paroxysmal atrial fibrillation (HCC-CMS) Atrial fibrillation documented in this encounter Care Teams Biomedical Analytical Scientist Relationship Specialty Start Date End Date Jessie Velasco [address] [facility] [place] [address] PCP - General Internal Medicine - Primary Care 08/26/21 Malini Euceda MD [address] [place] [address] [address] [place] [phone] Consulting Clinician Cardiovascular Disease 11/12/21 documented as of this encounter
--- OUTSIDE RECORDS SUMMARY | 2024-03-27 17:27 | XMS_ITS | Encounter Summary ---
Author Organization [facility] Address [address] [place] [address] Care Team Providers Care Deputy Coroner Investigator Name Role Phone Jessie Velasco Primary Care Provider [phone] Malini Euceda MD Unavailable [phone] Reason for Referral * Cardiology (Routine/Next Available) - Specialty Report Received Specialty Diagnoses / Procedures Referred By [facility] Referred To Contact Cardiology Diagnoses Non-ST elevation myocardial infarction (NSTEMI) ([facility]) Procedures TRANSTHORACIC ECHO (TTE) COMPLETE WY ECHO HEART XTHORACIC,COMPLETE W DOPPLER Malini Euceda MD 111 [facility] Level 1 [place] [address] [facility] Non-Invasive Card [address] [place] [address] Referral ID Status Reason Start Date Expiration Date V isits Requested Visits Authorized [id number] Specialty Report Received 02/10/2022 1 1 Reason for Visit * Reason Comments Hypertension Encounter Details Date Type Department Care Team (Late st Contact Info) Description 02/10/2022 10:00 EDT Office Visit [facility] Cardiology Clinic [address] [place] [phone] Malini Euceda MD 111 [facility], Level 1 [place] [phone] Non-ST elevation myocardial infarction (NSTEMI) ([facility]) ([facility]) (Primary Dx) Social History Tobacco Use Types [...] Sign Reading Time Taken Comments Blood Pressure 136/72 02/10/2022 0949 EDT Pulse 50 02/10/2022 0949 EDT Temperature - - Respiratory Rate - - Oxygen Saturation 98% 02/10/2022 0949 EDT Inhaled Oxygen Concentration - - Weight 102.2 kg (225 lb 6.4 oz) 02/10/2022 0949 EDT Height 180.3 cm (5' 10.98) 02/10/2022 0949 EDT Body Mass Index 31.45 02/10/2022 0949 EDT documented in this encounter Functional Status [...] Dispensed Refills Start Date End Da te clopidogreL (PLAVIX) 75 mg tabletIndications:Non-ST elevation myocardial infarction (NSTEMI) ([facility]) Take 1 Tablet by mouth daily. 90 Tablet 3 02/10/2022 04/21/2023 documented in this encounter Progress Notes * Malini Euceda MD - 02/10/2022 1000 EDT [facility] Cardiology Office Visit Subjective: Chief Complaint(s): Hypertension HPI: 71-year-old man with a history of type 2 diabetes, hypertension, hyperlipidemia with recent NSTEMI (08/2021) who presents for routine care. Since his last visit, his Ziopatch showed atrial flutter. Advised to drop ASA and replace with Eliquis to be on Plavix-Eliquis dual therapy. His hematuria has resolved. Continues to work on his diet- LDL was improved on last labs. Continues [place] walk [place] and is keeping his activity level up. Cardiac History He was admitted on 08-26-2021 with chest pressure and was found to have a troponin that peaked at 1.2. His left heart catheterization was notable for moderate disease multiple vessels, however no clear culprit. No stents placed. Treated medically with consideration of microvascular disease. Since his discharge, he has been doing well. Not having significant chest discomfort. Outpatient Medications Marked as Taking for the 02/10/22 encounter (Office Visit) with Malini Euceda MD Medication Sig ??? apixaban (ELIQUIS) 5 mg tablet Take 1 Tablet by mouth 2 times daily. ??? atorvastatin (LIPITOR) 40 mg tablet Take 1 Tablet by mouth every evening. ??? carvediloL (COREG) 6.25 mg tablet Take 1 Tablet by mouth 2 times daily with breakfast and dinner. ??? metFORMIN (GLUCOPHAGE) 1,000 mg tablet Take 1,000 mg by mouth every morning. ??? metFORMIN (GLUCOPHAGE) 1,000 mg tablet Take 500 mg by mouth every evening. ??? ONETOUCH ULTRA BLUE TEST STRIP test [...] and leg swelling. Objective: Examination: Vitals: BP 136/72 (BP Cuff Location: Right arm, BP Patient Position: Sitting, BP Cuff Sizes: Adult, regular) Pulse 50 Ht 180.3 cm (70.98) Wt (!) 102.2 kg (225 lb 6.4 oz) SpO2 98% BMI 31.45 kg/m?? Body mass index is 31.45 kg/m??. Physical Exam Constitutional: Appearance: Normal appearance. Cardiovascular: Rate and Rhythm: Normal rate. Rhythm irregular. Heart sounds: No murmur heard. No gallop. [...] results found for: NTBNP Assessment & Plan: 71-year-old man with a history of type 2 diabetes, hypertension, hyperlipidemia with recent NSTEMI (08/2021) who presents for routine follow-up. NSTEMI: Diagnosed in with troponin peaking at 1.2. Left heart cath showed moderate lesions without significant culprit. Managing medically with Plavix/Eliquis (concurrent atrial flutter). Preserved ejection fraction. Possible microvascular component. -Will consider dropping Plavix at one year (08/26) and will remain on Eliquis monotherapy -Continue Lipitor 40 mg, LDL at 83 slightly above goal of less than 70. Lipid recheck today. - already working diligently on diet modification Atrial flutter: Noted on recent Ziopatch- 1% burden. Asymptomatic. On Eliquis. Moderate aortic stenosis: No symptoms. Will need repeat echocardiogram 08/2022. Return to clinic in 6 months after repeat TTE I spent a total of 30 minutes on the date of this encounter as indicated in the above progress note. Malini Euceda MD documented in this encounter Plan of Treatment Upcoming Encounters Date Type Department Care Team (Late st Contact Info) Description 04/02/2024 11:15 EDT Telemedicine [facility] Urology - Main [address] [address] David Bhatt, DO 111 [facility], Level 5 [place] [address] 07/12/2024 12:30 EST Hospital Encounter [place] [address] EP Lab [address] [place], [place] [phone] Rodrigo Noyola MD [address] [phone] Paroxysmal atrial fibrillation ([facility]) 07/12/2024 12:30 EST - 07/12/2024 17:00 EST Surgery [place] [address] EP Lab [address] [place], [place] [phone] Rodrigo Noyola MD [address] [phone] [place] A-Fib [[id number] (CPT??)] 07/23/2024 11:00 EST Office Visit [facility] Cardiology Clinic [address] [place], [place] [phone] Malini Euceda MD [address] [place] [phone] documented as of this encounter Results * TRANSTHORACIC ECHO (TTE) COMPLETE W/DOPPLER W/CF NO CONTRAST (08/05/2022 9:30 EST) LV ID, ED, PLAX 5.5 3.5 - [...] Images were obtained using cardiac ultrasound machine [id number]. Malini Euceda MD CARDIAC ECHO ORDERAB LES documented in this encounter Visit Diagnoses Diagnosis Non-ST elevation myocardial infarction (NSTEMI) (HCC-CMS)- Primary Acute myocardial infarction, subendocardial infarction, episode of care unspecified Non-ST elevation myocardial infarction (NSTEMI) (HCC-CMS) Acute myocardial infarction, subendocardial infarction, episode of care unspecified Paroxysmal atrial fibrillation (HCC-CMS)- Primary Atrial fibrillation Paroxysmal atrial fibrillation (HCC-CMS) Atrial fibrillation documented in this encounter Discontinued Medications Medication Sig Discontinue Reason Start Date End Da te aspirin chewable 81 mg tablet Take 81 mg by mouth daily. Therapy completed 02/10/2022 documented as of this encounter Care Teams Deputy Coroner Investigator Relationship Specialty Start Date End Date Jessie Velasco 4 [place] [address] PCP - General Internal Medicine - Primary Care 08/26/21 Malini Euceda MD [address] [place] [address]- [address] [place] [phone] Consulting Clinician Cardiovascular Disease 11/12/21 documented as of this encounter
--- OUTSIDE RECORDS SUMMARY | 2024-03-27 17:27 | XMS_ITS | Encounter Summary ---
Author Organization [facility] Address [address] [place] [address] Care Team Providers Care Firmware Software Verification Engineer Name Role Phone KristaJessie Frank Primary Care Provider [phone] Malini Euceda MD Unavailable [phone] Reason for Visit * Reason Onset Date Comments Medications Refill 03/25/2022 Encounter Details Date Type Department Care Team (Late st Contact Info) Description 03/25/[address] [facility] Cardiology Clinic [address] [place] [address] Nicole Macdonald, ANDRE Medications Refill Social History Tobacco Use [...] (ELIQUIS) 5 mg tabletIndications:Atrial flutter, unspecified type ([facility]) Take 1 Tablet by mouth 2 times daily. 180 Tablet 3 03/25/2022 03/28/2023 documented in this encounter Miscellaneous Notes * Telephone Encounter - Nicole Macdonald, RN - 03/25/2022 4560 EDT Refill request received. Is UTD with office follow up. Rx sent to pharmacy. documented in this encounter Plan of Treatment Upcoming Encounters Date Type Department Care Team (Late st Contact Info) Description 04/02/2024 11:15 EDT Telemedicine [facility] Urology - [facility] [address] [place], [place] [phone] David Bhatt, 111 [facility], Level 5 [place] [address] 07/12/2024 12:30 [facility] Hospital Encounter [place] [address] EP Lab [address] [place], [place] [phone] Rodrigo Noyola MD [address] [phone] Paroxysmal atrial fibrillation (HCC-CMS) 07/12/2024 12:30 EST - 07/12/2024 17:00 EST Surgery [place] [address] EP Lab [address] [place], [place] [phone] Rodrigo Noyola MD [address] [phone] Alb[place] A-Kiara [[id number] (CPT??)] 07/23/2024 11:[address] [facility] Cardiology Clinic [address] [place] [address] Malini Euceda MD [address] [place] [phone] documented as of this encounter Visit Diagnoses Diagnosis Atrial flutter, unspecified type (HCC-CMS)- Primary Paroxysmal atrial fibrillation (HCC-CMS)- Primary Atrial fibrillation Paroxysmal atrial fibrillation (HCC-CMS) Atrial fibrillation documented in this encounter Discontinued Medications Medication Sig Discontinue Reason Start Date End Da te apixaban (ELIQUIS) 5 mg tabletIndications:Atrial flutter, unspecified type (HCC-CMS) Take 1 Tablet by mouth 2 times daily. Reorder 12/28/2021 03/25/2022 documented as of this encounter Care Teams Firmware Software Verification Engineer Relationship Specialty Start Date End Date Jessie Velasco 4 [facility] [place], [place] [phone] PCP - General Internal Medicine - Primary Care 08/26/21 Malini Euceda MD [address] [place] [address]A [address] [phone] Consulting Clinician Cardiovascular Disease 11/12/21 documented as of this encounter
--- OUTSIDE RECORDS SUMMARY | 2024-03-27 17:27 | XMS_ITS | Encounter Summary ---
Author Organization [facility] Address [address] [place] [address] Care Team Providers Care Carder Blankets Name Role Phone Jessie Velasco Primary Care Provider [phone] Reason for Visit * Reason Onset Date Comments Medications Refill 09/25/2021 Encounter Details Date Type Department Care Team (Late st Contact Info) Description 09/25/2021 Telephone [facility] Cardiology Clinic [address] [place] [address] Malini Euceda MD 111 [facility] 1 [place] [address] Medications Refill Social History Tobacco [...] 11:28 EST Sexual Orientation Not on file COVID-19 Exposure Response Date Recorded In the last month, have you been in contact with someone who was confirmed or suspected to have Coronavirus / COVID-19? Unable to assess 08/26/2021 13:54 EST documented as of this encounter Functional Status [...] Dispensed Refills Start Date End Da te atorvastatin (LIPITOR) 40 mg tabletIndications:hyper lipidemia Take 1 Tablet by mouth every evening. 90 Tablet 3 09/25/2021 carvediloL (COREG) 6.25 mg tablet Take 1 Tablet by mouth 2 times daily with breakfast and dinner. 180 Tablet 3 09/25/2021 05/31/2022 clopidogreL (PLAVIX) 75 mg tablet Take 1 Tablet by mouth daily for 90 days. 30 Tablet 2 09/25/2021 12/24/2021 documented in this encounter Miscellaneous Notes * Addendum Note - Karel Eastman RN - 09/25/2021 1614 ESTAddended by: KAREL EASTMAN on: 09/25/2021 16:14 Modules accepted: Orders * Telephone Encounter - Karel Eastman RN - 09/25/2021 1614 EST Escript sent to pharmacy as requested. * Telephone Encounter - David Chen - 09/25/2021 1559 EST Last DOS 09/16/21 Carvedilol [facility] * Addendum Note - Nicole Macdonald RN - 09/25/2021 1002 ESTAddended by: NICOLE MACDONALD on: 09/25/2021 10:02 Modules accepted: Orders * Telephone Encounter - Nicole Macdonald RN - 09/25/2021 1000 EST Spoke with patient and sent RX to [facility] per his request. Has a follow up visit in the office. Provided him with Cardiac Rehab phone number to set up an appointment. * Telephone Encounter - Trudi Rodríguez - 09/25/2021 0938 EST Pt LVM to get a refill on the atorvastatin and clopidogrel, pt did not specify which pharmacy. Pt also noted that he has not heard from cardiac rehab yet documented in this encounter Plan of Treatment Upcoming Encounters Date Type Department Care Team (Late st Contact Info) Description 04/02/2024 11:15 EDT Telemedicine [facility] Urology - [facility] [address] [place], [place] [phone] David Bhatt, 111 [facility], Level [address] [place] [phone] 07/12/2024 12:30 EST Hospital Encounter [place] 1 EP Lab [address] [place], [place] [phone] Rodrigo Noyola MD [address] [phone] Paroxysmal atrial fibrillation (HCC-CMS) 07/12/2024 12:30 EST - 07/12/2024 17:00 EST Surgery [place] [address] EP Lab [address] [place] [phone] Rodrigo Noyola MD [address] [phone] Alb[place] A-Fib [[id number] (CPT??)] 07/23/2024 11:00 EST Office Visit [facility] Cardiology Clinic [address] [place] [phone] Malini Euceda MD [address] [place] [phone] documented as of this encounter Visit Diagnoses Not on filedocumented in this encounter Discontinued Medications Medication Sig Discontinue Reason Start Date End Da te atorvastatin (LIPITOR) 40 mg tabletIndications:hyper lipidemia Take 40 mg by mouth every evening. Reorder 09/25/2021 clopidogreL (PLAVIX) 75 mg tablet Take 1 Tablet by mouth daily for 90 days. Reorder 08/28/2021 09/25/2021 carvediloL (COREG) 6.25 mg tablet Take 1 Tablet by mouth 2 times daily with breakfast and dinner. Reorder 08/28/2021 09/25/2021 documented as of this encounter Care Teams Carder Blankets Relationship Specialty Start Date End Date Jessie Velasco 4 [facility] [place] [phone] PCP - General Internal Medicine - Primary Care 08/26/21 documented as of this encounter
--- OUTSIDE RECORDS SUMMARY | 2024-03-27 17:27 | XMS_ITS | Encounter Summary ---
Author Organization [facility] Address [address] [place] [address] Care Team Providers Care Yard Attendant Name Role Phone Jessie Velasco Primary Care Provider Malini Euceda MD Unavailable [phone] Reason for Visit * Reason Onset Date Comments Hematuria 12/28/2021 Encounter Details Date Type Department Care Team (Late st Contact Info) Description 12/28/2021 Telephone [facility] Cardiology Clinic [address] [place] [address] Malini Euceda MD [address] [place] [address] 1 [place] [address] Hematuria Social History Tobacco Use Types [...] encounter Miscellaneous Notes * Telephone Encounter - Malini Euceda MD - 12/28/2021 1314 EDT Reviewed results of Ziopatch monitor showing atrial flutter.This is a new diagnosis for him. Coincidentally, he came to the office this morning to let me know of new hematuria. He noticed this at theend of last week. This has gotten better and his urine looks close to normal. PCP referred him to urology. Weighing the risks and benefits of adding eliquis (and dropping ASA) I do think the benefitsof stroke protection outweigh the risks of hematuria at this point. So, I advised him to stop the ASA. Will prescribe Eliquis. I also have him strict instructions to make me aware of returning hematuria, at which time we could discuss holding the Eliquis. He was understanding. * Telephone Encounter - Kaitlyn Eastman RN - 12/28/2021 1107 EDT MSG to call the office 11:40AM-Patient called the office back to report that he was seen by his PCP for hematuria. She hasplaced a referral to urology. He noted bleeding on Tuesday, this lasted about 48 hours. Today his urine appears to be back to normal. Per discharge summary patient was to continue on Plavix X 6 months. Medication RF states 90 days. Should patient continue on Plavix at this time? * Telephone Encounter - Burak Macias - 12/28/2021 1020 EDT Patient stopped by after Cardiac Rehab to stat that he has had blood in his urine and its very colorful. Patient is wondering if this could have anything to do with his Blood Thinner. Patient also dropped off a Monthly report from Cardiac Rehab which is scanned in to his chart. documented in this encounter Plan of Treatment Upcoming Encounters Date Type Department Care Team (Late st Contact Info) Description 04/02/2024 11:15 EDT Telemedicine [facility] Urology - [address] [phone] David Bhatt, 111 [facility] 5 [place] [phone] 07/12/2024 12:30 EST Hospital Encounter [place] [address] [place] [phone] Rodrigo Noyola MD [address] [place] [phone] Paroxysmal atrial fibrillation ([facility]) 07/12/2024 12:30 EST - 07/12/2024 17:00 EST Surgery [place] [address] EP Lab [address] [place] [phone] Rodrigo Noyola MD [address] [place] [phone] Bryce Woo [[id number] (CPT??)] 07/23/2024 11:00 EST Office Visit [facility] Cardiology Clinic [address] [place] [address] Malini Euceda MD 111 [facility] 1 [place] [address] documented as of this encounter Visit Diagnoses Not on filedocumented in this encounter Care Teams Yard Attendant Relationship Specialty Start Date End Date Jessie Velasco 4 [place], [place] [phone] PCP - General Internal Medicine - Primary Care 08/26/21 Malini Euceda MD [address] [place] [address]A [address] [place] [address] Consulting Clinician Cardiovascular Disease 11/12/21 documented as of this encounter
--- OUTSIDE RECORDS SUMMARY | 2024-03-27 17:27 | XMS_ITS | Encounter Summary ---
Author Organization [facility] Address [address] [place] [address] Care Team Providers Care Welder Oxyhydrogen Name Role Phone Jessie Velasco Primary Care Provider Reason for Visit * Reason Comments New Patient Visit S/P [facility], C DONE * Cardiology (Routine) - Authorization Not Required Specialty Diagnoses / Procedures Referred By [facility] t Referred To Contact Cardiology Diagnoses Acute myocardial infarction, subendocardial infarction (HCC-CMS) Jessie Velasco [address] [place] [phone] [facility] [address] [place] [address] Referral ID Status Reason Start Date Expiration Date Visits Requested Visits Authorized [id number] Authorization Not Required 1 1 Encounter Details Date Type Department Care Team (Late st Contact Info) Description 09/16/2021 10:30 EST Office Visit [facility] [address] [place], [place] [address] Malini Euceda MD 111 [facility], [facility] [address] [place] [address] NSTEMI (non-ST elevated myocardial infarction) (HCC-CMS) (HCC) (Primary Dx) Social History Tobacco Use Types [...] 13:54 EST documented as of this encounter Last Filed Vital Signs Vital Sign Reading Time Taken Comments Blood Pressure 142/68 09/16/2021 1018 EST Pulse 48 09/16/2021 1018 EST Temperature - - Respiratory Rate - - Oxygen Saturation 98% 09/16/2021 1018 EST Inhaled Oxygen Concentration - - Weight 103.9 kg (229 lb) 09/16/2021 1018 EST Height 180.3 cm (5' 10.98) 09/16/2021 1018 EST Body Mass Index 31.96 09/16/2021 1018 EST documented in this encounter Functional Status [...] * Patient Instructions* Malini Euceda MD - 09/16/2021 10:30 EST Do Not Take: Advil, Ibuprofen, Aleve, Tylenol Safe to Take: documented in this encounter Progress Notes * Malini Euceda MD - 09/16/2021 1030 EST [facility] Office Visit Subjective: Chief Complaint(s): New Patient Visit (S/P [facility], C DONE 08/27) HPI: 71-year-old man with a history of type 2 diabetes, hypertension, hyperlipidemia with recent NSTEMI (08/2021) who presents for establishment of cardiac care. He was admitted on 08-26-2021 with chest pressure and was found to have a troponin that peaked at 1.2. His left heart catheterization was notable for moderate disease multiple vessels, however no clear culprit. No stents placed. Treated medically with consideration of microvascular disease. Since his discharge, he has been doing well. Not having significant chest discomfort. He is accompanied by his via telephone. They note they have been trying to improve their diet and been been doing a great job. Taking his medications faithfully. No bleeding side effects. Outpatient Medications Marked as Taking for the 09/16/21 encounter (Office Visit) with Delon Euceda MD Medication Sig ??? aspirin chewable 81 mg tablet Take 81 mg by mouth daily. ??? atorvastatin (LIPITOR) 40 mg tablet Take 40 mg by mouth every evening. ??? carvediloL (COREG) 6.25 mg tablet Take 1 Tablet by mouth 2 times daily with breakfast and dinner. ??? clopidogreL (PLAVIX) 75 mg tablet Take 1 Tablet by mouth daily for 90 days. ??? metFORMIN (GLUCOPHAGE) 1,000 mg tablet Take [...] and leg swelling. Objective: Examination: Vitals: BP (!) 142/68 (BP Cuff Location: Right arm, BP Patient Position: Sitting, BP Cuff Sizes: Adult, large) Pulse (!) 48 Ht 180.3 cm (70.98) Wt (!) 103.9 kg (229 lb) SpO2 98% BMI 31.96 kg/m?? Body mass index is 31.96 kg/m??. Physical Exam Constitutional: Appearance: Normal appearance. Cardiovascular: Rate and Rhythm: Normal rate and regular rhythm. Heart sounds: No murmur heard. No gallop. Pulmonary: Effort: Pulmonary effort is normal. No respiratory distress. Breath sounds: Normal breath sounds. Neurological: Mental Status: He is alert. Labs: Lab Results Component Value Date CHOL 155 08/27/2021 HDL 49 08/27/2021 LDLBASE 83 08/27/2021 TRIG 114 08/27/2021 CHOLHDL 3.2 08/27/2021 BUN Date Value Ref [...] with recent NSTEMI (08/2021) who presents for establishment of cardiac care. NSTEMI: Diagnosed in with troponin peaking at 1.2. Left heart cath showed moderate lesions without significant culprit. Managing medically with aspirin and Plavix. Preserved ejection fraction. Possible microvascular component. -We will treat with aspirin-Plavix for at least 6 months. -Continue Lipitor 40 mg, LDL at 83 slightly above goal of less than 70. We will recheck at next follow-up as patient has been working on his diet. -Went over Mediterranean diet recommendations Moderate aortic stenosis: New diagnosis for him. No symptoms. Will need repeat echocardiogram 08/2022. Return to clinic in 8 weeks I spent a total of 50 minutes on the date of this encounter as indicated in the above progress note. Malini Euceda MD documented in this encounter Plan of Treatment Upcoming Encounters Date Type Department Care Team (Late st Contact Info) Description 04/02/2024 11:15 EDT Telemedicine [facility] Urology - [facility] [address] [place], [place] [phone] David Bhatt, 111 [facility], [facility], Level [address] [place] [address] 07/12/2024 12:30 EST Hospital Encounter [place] [address] EP Lab [address] [place], [place] [phone] Rodrigo Noyola MD 111 [facility] Level [address] [place] [phone] Paroxysmal atrial fibrillation (HCC-CMS) 07/12/2024 12:30 EST - 07/12/2024 17:00 EST Surgery [place] [address] EP Lab [address] [place], [place] [phone] Rodrigo Noyola MD [address] [address] Alb[place] A-Fib [[id number] (CPT??)] 07/23/2024 11:00 EST Office Visit [facility] [address] [place], [place] [address] Malini Euceda MD [address] [place] [phone] documented as of this encounter Visit Diagnoses Diagnosis NSTEMI (non-ST elevated myocardial infarction) (HCC-CMS)- Primary Acute myocardial infarction, subendocardial infarction, episode of care unspecified Paroxysmal atrial fibrillation (HCC-CMS)- Primary Atrial fibrillation Paroxysmal atrial fibrillation (HCC-CMS) Atrial fibrillation documented in this encounter Care Teams Welder Oxyhydrogen Relationship Specialty Start Date End Date Jessie Velasco [address] [place] [address] PCP - General Internal Medicine - Primary Care 08/26/21 documented as of this encounter
--- OUTSIDE RECORDS SUMMARY | 2024-03-27 17:27 | XMS_ITS | Encounter Summary ---
Author Organization [facility] Address [address] [place] [address] Care Team Providers Care Supervisor Chassis Assembly Name Role Phone Jessie Velasco Primary Care Provider Malini Euceda MD Unavailable Reason for Visit * Reason Onset Date Comments Medication Management 05/28/2022 Encounter Details Date Type Department Care Team (Late st Contact Info) Description 05/28/2022 Telephone [facility] - [facility] [address] [place] [address] Malini Euceda MD [address] [place] [address] 1 [place] [address] Medication Management Social History Tobacco Use Types Packs/Day Years [...] Dispensed Refills Start Date End Da te carvediloL (COREG) 3.125 mg tablet Take 1 Tablet by mouth 2 times daily with breakfast and dinner. 90 Tablet 3 05/31/2022 07/26/2022 documented in this encounter Miscellaneous Notes * Telephone Encounter - David Chen - 05/31/2022 1636 EDT Pt is sched for 07/22/[address] Euceda * Telephone Encounter - Kaitlyn Eastman RN - 05/31/2022 1621 EDT Spoke with patient and instructed him to reduce his carvedilol dosing down to 3.125mg per .He verbalizes good understanding of medication change. Appt reschedule to July as requested. * Telephone Encounter - Kaitlyn Eastman RN - 05/31/2022 1546 EDT Spoke with patient, he states his PCP would like to talk with cardiology as he is tired and he doesn't know why. Patient is very short with me, no willing to answer questions. He states it is up to the Dr to figure it out. At this time he states he is so tired he is starting to feel depressed. He would like to contact his PCP * Telephone Encounter - Sunshine Covington - 05/31/2022 0848 EDT Patient returned call * Telephone Encounter - Kaitlyn Eastman RN - 05/28/2022 1419 EDT MSG to call the office * Telephone Encounter - Sunshine Covington - 05/28/2022 1101 EDT Spoke with patient, he is having some symptoms with the medication that he is on. He is feeling very fatigued and depressed. He spoke with his PCP, and she is requesting that someone give her office a call so she can discuss his medication and symptoms. documented in this encounter Plan of Treatment Upcoming Encounters Date Type Department Care Team (Late st Contact Info) Description 04/02/2024 11:15 EDT Telemedicine [facility] Urology - [facility] [address] [place], [place] [phone] David Bhatt, 111 [facility], Level [address] [place] [phone] 07/12/2024 12:30 [facility] Hospital Encounter [place] 1 EP Lab [address] [place], [place] [phone] Rodrigo Noyola MD [address] [place] [phone] Paroxysmal atrial fibrillation (HCC-CMS) 07/12/2024 12:30 EST - 07/12/2024 17:00 EST Surgery [place] [address] EP Lab [address] [place] [id number] Rodrigo Noyola MD [address] [place] [phone] Albation Kaur-Kiara [[id number] (CPT??)] 07/23/2024 11:00 EST Office Visit [facility] Cardiology Clinic [address] [place] [address] Malini Euceda MD [address] [place] [phone] documented as of this encounter Visit Diagnoses Not on filedocumented in this encounter Discontinued Medications Medication Sig Discontinue Reason Start Date End Da te carvediloL (COREG) 6.25 mg tablet Take 1 Tablet by mouth 2 times daily with breakfast and dinner. Reorder 09/25/2021 05/31/2022 documented as of this encounter Care Teams Supervisor Chassis Assembly Relationship Specialty Start Date End Date Jessie Velasco [place] [address] PCP - General Internal Medicine - Primary Care 08/26/21 Malini Euceda MD [address] [place] [address]A [address] [phone] Consulting Clinician Cardiovascular Disease 11/12/21 documented as of this encounter
--- OUTSIDE RECORDS SUMMARY | 2024-03-27 17:27 | XMS_ITS | Encounter Summary ---
Author Organization [facility] Address [address] [place] [address] Care Team Providers Care Master Baker Name Role Phone Jessie Velasco Primary Care Provider [phone] Malini Euceda MD Unavailable [phone] Reason for Visit * Reason Onset Date Comments Medication Management 03/25/2022 Encounter Details Date Type Department Care Team (Late st Contact Info) Description 03/25/[address] [facility] [address] [place] [address] Malini Euceda MD [address] [place] [address] 1 [place] [address] Medication Management Social History Tobacco [...] Dispensed Refills Start Date End Da te Ttyjn-3-XQU-EPA-Fish Oil (FISH OIL) 1,200 (144-216) mg capsule Take 1,200 mg by mouth daily. 03/25/2022 documented in this encounter Miscellaneous Notes * Telephone Encounter - Kaitlyn Eastman RN - 03/25/2022 1100 EDT Spoke with patient and reviewed medication list. Fish oil added, no other discrepancies. Patient states he was told that fish oil can increase bleeding risk. Discussed with , ok to take fish oil with Elimaddyis. Instructed to monitor for any S&S ofbleeding and report if occurs. * Telephone Encounter - David Chen - 03/25/2022 1034 EDT Pt called looking for a call back from RN to discuss his medication list. He would like a call backto review rx list documented in this encounter Plan of Treatment Upcoming Encounters Date Type Department Care Team (Late st Contact Info) Description 04/02/2024 11:15 EDT Telemedicine [facility] Urology - [address] [id number] David Bhatt DO 111 [facility], Level [address] [place] [phone] 07/12/2024 12:30 EST Hospital Encounter [place] [address] [address] [place] [id number] Rodrigo Noyola MD [address] [place] [phone] Paroxysmal atrial fibrillation ([facility]) 07/12/2024 12:30 EST - 07/12/2024 17:00 EST Surgery [place] [address] [address] [place] [id number] Rodrigo Noyola MD [address] [place] [phone] Albation A-Fib [[id number] (CPT??)] 07/23/2024 11:00 EST Office Visit [facility] Cardiology Clinic [address] [place] [phone] Malini Euceda MD [address] [place] [phone] documented as of this encounter Visit Diagnoses Not on filedocumented in this encounter Care Teams Master Baker Relationship Specialty Start Date End Date Jessie Velasco [address] [facility] [place], [place] [phone] PCP - General Internal Medicine - Primary Care 08/26/21 Malini Euceda MD [address] [place] [address] [address] [place] [phone] Consulting Clinician Cardiovascular Disease 11/12/21 documented as of this encounter
--- OUTSIDE RECORDS SUMMARY | 2024-03-27 17:27 | XMS_ITS | Encounter Summary ---
Author Organization [facility] Address [address] [place] [address] Care Team Providers Care Instructor Hairspring Name Role Phone Jessie Velasco Frank Primary Care Provider Malini Euceda MD Unavailable [phone] Reason for Visit * Reason Onset Date Comments New/Evolving Symptoms 06/10/2022 Encounter Details Date Type Department Care Team (Late st Contact Info) Description 06/10/2022 Telephone [facility] Urology - [address] [phone] David Bhatt, DO 111 [facility], Level [address] [place] [phone] New/Evolving Symptoms Social History Tobacco Use Types [...] encounter Miscellaneous Notes * Telephone Encounter - Rosa Anne RN - 06/10/2022 0923 EDT patient has been drinking 64 oz of water a day, his urine is a little clearer but still has a very strong odor of ammonia. He is now c/o burning at the tip of his penis when he urinates and urinary frequency. He feels he is able to empty his bladder eventually but takes time. He will submit urine sample today. * Telephone Encounter - Carri Harris - 06/10/2022 0837 EDT PT believes he has an infection after having his cysto completed last month. PT spoke with Micaela and would like to speak with her again about this matter. documented in this encounter Plan of Treatment Upcoming Encounters Date Type Department Care Team (Late st Contact Info) Description 04/02/2024 11:15 EDT Telemedicine [facility] Urology - [address] [phone] David Bhatt, 111 [facility] 5 [place] [phone] 07/12/2024 12:30 EST Hospital Encounter [place] [address] [address] [place] [phone] Rodrigo Noyola MD [address] [place] [phone] Paroxysmal atrial fibrillation ([facility]) 07/12/2024 12:30 EST - 07/12/2024 17:00 EST Surgery [place] [address] EP Lab [address] [place] [phone] Rodrigo Noyola MD [address] [place] [phone] Albation A-Fib [[id number] (CPT??)] 07/23/2024 11:00 EST Office Visit [facility] Cardiology Clinic [address] [place] [address] Malini Euceda MD [address] [place] [phone] documented as of this encounter Results * BACTERIAL CULTURE, URINE (06/10/2022 10:21 EDT) Organism ID [id number] to [id number] CFU/ml VITEK SUSCEPTIBILITY 06/11/2022 11:27 EDT [facility] Comment:Usual urogenital jodee ra. Urine URINE SPECIMEN COLLECTION, CLEAN CATCH / Unknown Urine Collect / Unknown 06/10/2022 10:21 EDT 06/10/2022 11:08 EDT David Bhatt DO MICROBIOLOGY - GENE RAL ORDERABLES [facility] [address] [place] [address] documented in this encounter Visit Diagnoses Diagnosis Frequency of urination- Primary Urinary frequency Dysuria Paroxysmal atrial fibrillation (HCC-CMS)- Primary Atrial fibrillation Paroxysmal atrial fibrillation (HCC-CMS) Atrial fibrillation documented in this encounter Orders Lab Orders Without Results Count Last Ordered D ate First Ordered Date URINE CHEMICAL (DIP) & SEDIM ENT (MICRO) WITHOUT REFLEX TO CULTURE 1 06/10/2022 documented in this encounter Care Teams Instructor Hairspring Relationship Specialty Start Date End Date Jessie Velasco [address] [place] [address] PCP - General Internal Medicine - Primary Care 08/26/21 Malini Euceda MD [address] [place] [address] [address] [place] [address] Consulting Clinician Cardiovascular Disease 11/12/21 documented as of this encounter
--- OUTSIDE RECORDS SUMMARY | 2024-03-27 17:27 | XMS_ITS | Encounter Summary ---
Author Organization [facility] Address [address] [place] [address] Care Team Providers Care Grill Attendant Name Role Phone Jessie Velasco Frank Primary Care Provider Malini Euceda MD Unavailable [phone] Reason for Visit * Reason Comments New Patient Visit Gross Hematuria, Pos sible Cystoscopy Encounter Details Date Type Department Care Team (Late st Contact Info) Description 05/28/2022 16:00 EDT Office Visit [facility] Urology - [address] [id number] David Bhatt, DO 111 [facility], Level [address] [place] [phone] Scope, Cystoscopy Hematuria, gross (Primary Dx); Hematuria, unspecified type; BPH with obstruction/lower urinary tract symptoms Social History Tobacco Use Types Packs/Day Years [...] Progress Notes * David Bhatt, DO - 05/28/2022 1600 EDT 1. Status post TURP for BPH and chronic retention(2013). 2. Gross hematuria 2021. Urine c/s neg. CTU: 2021 neg. No recent voiding issues or problems. DIVISION OF UROLOGY PROCEDURE REPORT SERVICE DATE: 05/28/2022 PREOPERATIVE DIAGNOSIS: Encounter Diagnoses Name Primary? Hematuria, unspecified type ??? Hematuria, gross Yes ??? BPH with obstruction/lower urinary tract symptoms PROCEDURE: Cystoscopy SURGEON: David Bhatt DO ANESTHESIA: 20 mL 2% Xylocaine gel. INSTRUMENTS: Flexible 17-[place]ese cystoscope with video. RESIDUAL URINE: 10 mL. BLADDER CAPACITY: 800 mL. BLADDER, GENERAL DESCRIPTION: Unremarkable with trabeculations cellules narrowband imaging also negative. TRIGONE AND URETERAL ORIFICES: Displaced downward from regrowth middle lobe prostate unremarkable. VESICAL NECK: Interesting just regrowth middle lobe with some telangiectatic vessels no active bleeding. URETHRA: Unremarkable distal urethra need to be dilated with the semirigid dilators from 16-20 [place]ese for the flexible cystoscope to go. UROGRAPHIC STUDIES: CT urogram as above negative. OBJECTIVE: Vital signs stable pre and post procedure. External genitalia normal. 50 g benign prostate. POSTOPERATIVE DIAGNOSIS: Normal cystoscopy urine cytology pending. RECOMMENDATIONS: 1 cytologies confirm negative follow hematuria expectantly. This note has been prepared with voice recognition software. Please excuse wholesale diamond broker errors. David Bhatt DO 05/28/2022 CC: Jessie Velasco MD documented in this encounter Plan of Treatment Upcoming Encounters Date Type Department Care Team (Late st Contact Info) Description 04/02/2024 11:15 EDT Telemedicine [facility] Urology - [address] [phone] David Bhatt DO [address] [place] [address], Level [address] [place] [phone] 07/12/2024 12:30 EST Hospital Encounter [place] [id number] [address] [place] [address] [id number] Rodrigo Noyola MD [address] [place] [phone] Paroxysmal atrial fibrillation ([facility]) 07/12/2024 12:30 EST - 07/12/2024 17:00 EST Surgery [place] [address] EP [address] [place] [address] [id number] Rodrigo Noyola MD [address] [place] [phone] Albcj Woo [[id number] (CPT??)] 07/23/2024 11:[address] [facility] Cardiology Clinic [address] [place] [address] Malini Euceda MD [address] [place] [address] Level [address] [place] [address] documented as of this encounter Procedures Procedure Name Priority Date/Time Associated Diagnosis Comments NON SHOWROOM SALES CONSULTANT/FNA CYTOLOGY Routine 05/28/2022 16:26 EDT Hematuria, unspecified type POCT URINE DIPSTICK, CLINITEK Routine 05/28/2022 15:35 EDT Hematuria, unspecified type POCT CSN BARCODE URINE DIPSTICK Routine 05/28/2022 15:34 EDT Hematuria, unspecified type POCT URINE CLINITEK (DIPSTICK) - DOES NOT REFLEX Routine 05/28/2022 15:34 EDT Hematuria, unspecified type documented in this encounter Results * NON SHOWROOM SALES CONSULTANT/FNA CYTOLOGY (05/28/2022 16:26 EDT) Note to Patient The following pathology results have been interpreted by your pathologist and may be available to you before your health provider has had the opportunity to review them. Please allow time for your provider to receive these results and explore management options, if applicable. 06/01/2022 15:46 [facility] Final Diagnosis URINE, VOIDED, CYTOLOGIC EVALUATION: - Negative for high grade urothelial cell carcinoma. - Rare reactive urothelial cells, occasional squamous cells, red blood cells and numerous acute inflammatory cells present. 06/01/2022 15:46 [facility] Attestation By the signature below, the attending physician certifies that they have personally conducted a gross and/or microscopic examination of the described specimens and rendered or confirmed the above diagnosis. 06/01/2022 15:46 [facility] at 1923 Clinical History no sxs 06/01/2022 15:46 [facility] Gross Description A. 100cc's of clear yellow fluid were received and processed by selective cellular enhancement technique. 06/01/2022 15:46 T [facility] Performing Lab [facility] 06/01/2022 15:46 [facility] Scanned Images 06/01/2022 15:46 [facility] Urine VOIDED URINE SPECIMEN / Unknown Urine Collect / Unknown 05/28/2022 16:26 EDT 05/31/2022 6:00 EDT David Bhatt DO PATHOLOGY ORDERABLE S Performing Organization Address City/State/[facility] Co de Phone Number [facility] [address] [place] [address] * POCT URINE DIPSTICK, CLINITEK (05/28/2022 15:35 EDT) Color, UA Yellow Yellow 05/28/2022 15:37 [facility] Clarity, UA Clear Clear 05/28/2022 15:37 [facility] Glucose, UA Negative Negative 05/28/2022 15:37 [facility] Bilirubin, UA Negative Negative 05/28/2022 15:37 [facility] Ketones, UA Negative Negative 05/28/2022 15:37 [facility] Specific [place], Urine 1.010 1.001 - 1.035 05/28/2022 15:37 [facility] Blood, UA Negative Negative 05/28/2022 15:37 [facility] pH, UA 5.5 4.6 - 8.0 05/28/2022 15:37 [facility] Protein, UA Negative Negative 05/28/2022 15:37 [facility] Urobilinogen, UA 0.2 0.2 - 1.0 mg/dL 05/28/2022 15:37 [facility] Nitrite, UA Negative Negative 05/28/2022 15:37 [facility] Leuk Esterase Negative Negative 05/28/2022 15:37 EDT [facility] HN LAB COMMENT (CLINITEK, UR) Test performed at [facility] 05/28/2022 15:37 EDT [facility] Urine URINE SPECIMEN COLLECTION, CLEAN CATCH / Unknown 05/28/2022 15:35 EDT 05/28/2022 15:37 EDT David Bhatt DO POINT OF CARE TEST ORDERABLES Performing Organization Address [facility] Co de Phone Number [facility] [address] [place] [address] * POCT CSN BARCODE URINE DIPSTICK (05/28/2022 15:34 EDT) Urine URINE SPECIMEN COLLECTION, CLEAN CATCH / Unknown 05/28/2022 15:34 EDT 05/28/2022 15:34 EDT David Bhatt DO LAB INFO SERVICE AN D SUPPORT & PHONE RESULT Performing Organization Address [facility] Co de Phone Number [facility] [address] [place] [address] documented in this encounter Visit Diagnoses Diagnosis Hematuria, gross- Primary Gross hematuria Hematuria, unspecified type BPH with obstruction/lower urinary tract symptoms Hypertrophy of prostate with urinary obstruction and other lower urinary tract symptoms (LUTS) Paroxysmal atrial fibrillation (HCC-CMS)- Primary Atrial fibrillation Paroxysmal atrial fibrillation (HCC-CMS) Atrial fibrillation documented in this encounter Care Teams Grill Attendant Relationship Specialty Start Date End Date Jessie Velasco [address] [place] [address] PCP - General Internal Medicine - Primary Care 08/26/21 Malini Euceda MD [address] [place] [address] [address] [place] [phone] Consulting Clinician Cardiovascular Disease 11/12/21 documented as of this encounter
--- OUTSIDE RECORDS SUMMARY | 2024-03-27 17:27 | XMS_ITS | Encounter Summary ---
Author Organization [facility] Address [address] [place] [address] Care Team Providers Care Line Haul Truck Driver Name Role Phone Jessie Velasco Primary Care Provider Malini Euceda MD Unavailable [phone] Encounter Details Date Type Department Care Team (Late st Contact Info) Description 05/28/2022 Orders Only [facility] Urology - [address] [phone] David Bhatt, DO 111 [facility], [address] [place] [phone] Hematuria, unspecified type (Primary Dx) Social History Tobacco Use Types [...] Contact Info) Description 04/02/2024 11:15 EDT Telemedicine [facility] Urology - [address] [phone] David Bhatt DO 111 [facility], [facility] 5 [place] [phone] 07/12/2024 12:30 EST Hospital Encounter [place] 1 EP Lab [address] [place], [place] 505261 Rodrigo Noyola MD 111 [facility] 1 [place] [phone] Paroxysmal atrial fibrillation (HCC-CMS) 07/12/2024 12:30 EST - 07/12/2024 17:00 EST Surgery [place] 1 EP Lab [address] [place], [place] [phone] Rodrigo Noyola MD 111 [facility], [facility] 1 [place] [address] Bryce Woo [[id number] (CPT??)] 07/23/2024 11:00 EST Office Visit [facility] Cardiology Clinic [address] [place] [address] [phone] Malini Euceda MD [address] [place] [address] 1 [place] [address] Scheduled Orders Name Type Priority Associated Diagnoses Orde r Schedule UROLOGY BLADDER SCAN Procedure Routine Hematuria, unspecified type 5 Occurrences starting 05/28/2022 until 05/28/2023 documented as of this encounter Visit Diagnoses Diagnosis Hematuria, unspecified type- Primary Paroxysmal atrial fibrillation (HCC-CMS)- Primary Atrial fibrillation Paroxysmal atrial fibrillation (HCC-CMS) Atrial fibrillation documented in this encounter Care Teams Line Haul Truck Driver Relationship Specialty Start Date End Date Jessie Velasco [address] [place], [place] [phone] PCP - General Internal Medicine - Primary Care 08/26/21 Malini Euceda MD [address] [place] [address] [place] [phone] Consulting Clinician Cardiovascular Disease 11/12/21 documented as of this encounter
--- OUTSIDE RECORDS SUMMARY | 2024-03-27 17:27 | XMS_ITS | Encounter Summary ---
Author Organization [facility] Address [address] [place] [address] Care Team Providers Care Optician Apprentice Name Role Phone Jessie Velasco Primary Care Provider [phone] Malini Euceda MD Unavailable [phone] Encounter Details Date Type Department Care Team (Late st Contact Info) Description 11/13/2021 12:20 EST Phlebotomy Only [facility] - Outpatient Phlebotomy Drawing [address] [place] [address] Lab, [facility] Non-ST elevation myocardial infarction (NSTEMI) ([facility]) ([facility]) Social History Tobacco Use Types Packs/Day Years [...] Encounter Note - Malini Euceda MD - 11/13/2021 1220 EST Please let Mr. Garnica know his cholesterol is excellent- the diet changes he has made are certainly working. No medication changes need to be made. documented in this encounter Plan of Treatment Upcoming Encounters Date Type Department Care Team (Late st Contact Info) Description 04/02/2024 11:15 EDT Telemedicine [facility] Urology - [address] [phone] David Bhatt, 111 [facility], Level [address] [place] [phone] 07/12/2024 12:30 EST Hospital Encounter [place] [address] EP Lab [address] [place], [place] [phone] Rodrigo Noyola MD 111 [facility], Level [address] [place] [phone] Paroxysmal atrial fibrillation ([facility]) 07/12/2024 12:30 EST - 07/12/2024 17:00 EST Surgery [place] [address] EP [address] [place] [address] [phone] Rodrigo Noyola MD [address] [phone] [place] A-Fib [[id number] (CPT??)] 07/23/2024 11:00 EST Office Visit [facility] Cardiology Clinic [address] [place], [place] [phone] Malini Euceda MD [address] [phone] documented as of this encounter Procedures Procedure Name Priority Date/Time Associated Diagnosis Comments LIPID PROFILE (INCLUDES CHOLESTEROL, TRIGLYCERIDES, HDL, LDL) Routine 11/13/2021 12:29 EST Non-ST elevation myocardial infarction (NSTEMI) ([facility]) ([facility]) documented in this encounter Results * LIPID PROFILE (INCLUDES CHOLESTEROL, TRIGLYCERIDES, HDL, LDL) (11/13/2021 12:29 EST) Cholesterol 117 See Note mg/dL 11/13/2021 13:03 [facility] Comment: Acceptable: ?<200 mg/dL Borderline High: 200-239 mg/dL High: ?> or = 240 mg/dL HDL 39 See Note mg/dL 11/13/2021 13:03 [facility] Comment: Low: ? <40 mg/dL Normal: ??40-60 mg/dL High: ?>60 mg/dL LDL, Calculated 61 See Note mg/dL 11/13/2021 13:03 [facility] Comment: Optimal: ? <100 mg/dL Near Optimal: ?100-129 mg/dL Borderline High: 130-159 mg/dL High: ?160-189 mg/dL Very High: ? > or = 190 mg/dL Triglyceride 85 See Note mg/dL 11/13/2021 13:03 [facility] Comment: Normal: ? <150 mg/dL Borderline High: ??150 - 199 mg/dL High: ? 200 - 499 mg/dL Very High: ?> or = 500 mg/dL Chol/HDL Ratio 3.0 See Note 11/13/2021 13:03 [facility] Comment: NOTE: Desirable Ratio = <4.1 Patient At Risk Ratio = >5.0(Males) ?>6.0(Females) Non HDL Cholesterol 78 See Note mg/dL 11/13/2021 13:03 [facility] Comment: Desirable: ?<130 mg/dL Borderline High: ??130-159 mg/dL High: ? 160-189 mg/dL Very High: ?> or = 190 mg/dL Blood VENOUS BLOOD / Unknown Venipuncture / Unknown 11/13/2021 12:29 EST 11/13/2021 12:34 EST Malini Euceda MD CHEMISTRY & BLOOD GA S ORDERABLES [facility] [address] [place] [address] documented in this encounter Visit Diagnoses Diagnosis Non-ST elevation myocardial infarction (NSTEMI) (HCC-CMS) Acute myocardial infarction, subendocardial infarction, episode of care unspecified Paroxysmal atrial fibrillation (HCC-CMS)- Primary Atrial fibrillation Paroxysmal atrial fibrillation (HCC-CMS) Atrial fibrillation documented in this encounter Care Teams Optician Apprentice Relationship Specialty Start Date End Date Jessie Velasco [address] [place] [address] PCP - General Internal Medicine - Primary Care 08/26/21 Malini Euceda MD [address] [place] [phone] Consulting Clinician Cardiovascular Disease 11/12/21 documented as of this encounter
--- OUTSIDE RECORDS SUMMARY | 2024-03-27 17:27 | XMS_ITS | Encounter Summary ---
Author Organization [facility] Address [address] [place] [address] Care Team Providers Care Industrial Engineering Manager Name Role Phone Jessie Velasco Primary Care Provider Malini Euceda MD Unavailable [phone] Reason for Visit * Cardiology (Routine/Next Available) - Specialty Report Received Specialty Diagnoses / Procedures Referred By Janie weinstein Referred To Contact Diagnoses Palpitations Procedures ZIO PATCH Suiter, Preethi Siu MD [address] [place] [address] [facility] Referral ID Status Reason Start Date Expiration Date V isits Requested Visits Authorized [id number] Specialty Report Received 11/23/2021 02/02/2022 1 1 Encounter Details Date Type Department Care Team (Late st Contact Info) Description 11/30/2021 10:15 EDT Ancillary Procedure [facility] Cardiology Clinic [address] [place] [address] Palpitations Social History Tobacco Use Types Packs/Day Years [...] Contact Info) Description 04/02/2024 11:15 EDT Telemedicine [facility] Urology - [address] [phone] David Bhatt DO 111 [facility], Level [address] [place] [address] 07/12/2024 12:30 EST Hospital Encounter [place] 1 EP Lab [address] [place] [address] Rodrigo Noyola MD 111 [facility], Level [address] [place] [phone] Paroxysmal atrial fibrillation (HCC-CMS) 07/12/2024 12:30 EST - 07/12/2024 17:00 EST Surgery [place] [address] EP Lab [address] [place] [address] Rodrigo Noyola MD [address] [phone] [place] A-Fib [[id number] (CPT??)] 07/23/2024 11:00 EST Office Visit [facility] Cardiology Clinic [address] [place], [place] 6[address] Malini Euceda MD [address] [address] documented as of this encounter Procedures Procedure Name Priority Date/Time Associated Diagnosis Comments EXTENDED HOLTER MONITOR (7 OR 14 DAY) Routine 11/30/2021 10:31 EDT Palpitations documented in this encounter Results * EXTENDED HOLTER - [...] AV block. 5. No patient events Preethi Sui [facility] ORDERABLES documented in this encounter Visit Diagnoses Diagnosis Palpitations Paroxysmal atrial fibrillation (HCC-CMS)- Primary Atrial fibrillation Paroxysmal atrial fibrillation ([facility]) Atrial fibrillation documented in this encounter Care Teams Industrial Engineering Manager Relationship Specialty Start Date End Date Jessie Velasco [address] [place] [address] PCP - General Internal Medicine - Primary Care 08/26/21 Malini Euceda MD [address] [place] [address] [address] [place] [phone] Consulting Clinician Cardiovascular Disease 11/12/21 documented as of this encounter
--- OUTSIDE RECORDS SUMMARY | 2024-03-27 17:27 | XMS_ITS | Encounter Summary ---
Author Organization [facility] Address [address] [place] [address] Care Team Providers Care Erco Machine Operator Name Role Phone Jessie Velasco Primary Care Provider [phone] Malini Euceda MD Unavailable [phone] Reason for Visit * Reason Comments Other zio Encounter Details Date Type Department Care Team (Late st Contact Info) Description 11/30/2021 10:15 EDT Nurse Only [facility] [address] [place] [address] Nurse, [facility] Palpitations (Primary Dx) Social History Tobacco Use [...] of this encounter Progress Notes * Nicole Macdonald RN - 11/30/2021 1015 EDT Pt to office for placement of 14 day Zio monitor. Pt aox3 and w/o complaints. Reviewed patient information and instructions with patient who verbalizes understanding. Zio monitor applied to left chest after appropriate skin prep per guidelines from diesel engine specialist. Pt demonstrated pushing event buttonto activate after application. Pt verbalizes understanding of documenting events after pushing the event button. Reviewed troubleshooting the device as well as how to contact the diesel engine specialist help line with questions/concerns. Pt verbalizes understanding of removal and how to mail it back to the diesel engine specialist. documented in this encounter Plan of Treatment Upcoming Encounters Date Type Department Care Team (Late st Contact Info) Description 04/02/2024 11:15 EDT Telemedicine [facility] Urology - [facility] [address] [place], [place] [phone] David Bhatt, 111 [facility], Level [address] [place] [phone] 07/12/2024 12:30 [facility] Hospital Encounter [place] 1 EP Lab [address] [place], [place] [phone] Rodrigo Nooyla MD [address] [phone] Paroxysmal atrial fibrillation (HCC-CMS) 07/12/2024 12:30 EST - 07/12/2024 17:00 EST Surgery [place] [address] EP Lab [address] [place], [place] [phone] Rodrigo Noyola MD [address] [phone] Bryce Woo [[id number] (CPT??)] 07/23/2024 11:00 EST Office Visit [facility] Cardiology Clinic [address] [place] [address] Malini Euceda MD [address] [place] [phone] documented as of this encounter Visit Diagnoses Diagnosis Palpitations- Primary Paroxysmal atrial fibrillation (HCC-CMS)- Primary Atrial fibrillation Paroxysmal atrial fibrillation (HCC-CMS) Atrial fibrillation documented in this encounter Care Teams Erco Machine Operator Relationship Specialty Start Date End Date Jessie Velasco [address] [facility] [place], [place] [phone] PCP - General Internal Medicine - Primary Care 08/26/21 Malini Euceda MD 130 [facility] [address] [place] [address] Consulting Clinician Cardiovascular Disease 11/12/21 documented as of this encounter
--- OUTSIDE RECORDS SUMMARY | 2024-03-27 17:27 | XMS_ITS | Encounter Summary ---
Author Organization [facility] Address [address] [place] [address] Care Team Providers Care Group Controller Name Role Phone MercyrosieJessie Frank Primary Care Provider [phone] Reason for Visit * Reason Comments New Patient Visit [facility], NSTEM I (non-ST elevated myocardial infarction) * Follow Up (Routine/Next Available) - Order Cancelled Specialty Diagnoses / Procedures Referred By [facility] Referred To Contact Cardiology Diagnoses NSTEMI (non-ST elevated myocardial infarction) ([facility]) Adams Murrell MD [address] [place] [address] [facility] [place]iology [place] [address] Referral ID Status Reason Start Date Expiration Date Visits Requested Visits Authorized [id number] Order Cancelled Specialty Services Required 1 1 1 Encounter Details Date Type Department Care Team (Late st Contact Info) Description 11/06/2021 11:20 EST Office Visit [facility] Cardiology - [facility] [address] [place], [place] [phone] Jess Franco MD [address] [facility] [address] Irregular heart beat (Primary Dx); NSTEMI (non-ST elevated myocardial infarction) (HCC-CMS) ([facility]); Moderate aortic stenosis; Coronary artery disease involving augustine coronary artery of augustine heart without angina pectoris; Hypertension, unspecified type; Hyperlipidemia, unspecified hyperlipidemia type Social History Tobacco Use Types Packs/Day [...] Sign Reading Time Taken Comments Blood Pressure 126/70 11/06/2021 1109 EST Pulse 56 11/06/2021 1109 EST Temperature - - Respiratory Rate - - Oxygen Saturation 99% 11/06/2021 1109 EST Inhaled Oxygen Concentration - - Weight 103.9 kg (229 lb) 11/06/2021 1109 EST Height - - Body Mass Index 31.96 09/16/2021 1018 EST [...] Progress Notes * Jess Franco MD - 11/06/2021 1120 EST Cardiology Follow Up 11/06/21 Chief complaint: New Patient Visit ([facility] care, NSTEMI (non-ST elevated myocardial infarction)) Assessment & Plan Ralph Garnica is a 71 y.o. male with moderate 2 vessel CAD, moderate , HTN. Continue DAPT x 12 months., Strongly recommend zio patch to rule out afib. Patient to discuss further with Dr. Euceda. BP at goal. FU echo in 6-12 momths given moderate . FU 6-12 months. Diagnoses and all orders for this visit: Irregular heart beat NSTEMI (non-ST elevated myocardial infarction) (HCC-CMS) ([facility]) Moderate aortic stenosis Coronary artery disease involving augustine coronary artery of augustine heart without angina pectoris Hypertension, unspecified type Hyperlipidemia, unspecified hyperlipidemia type Return in about 1 year (around 11/06/2022). Jess Franco MD Subjective Ralph Garnica is a 71 y.o. male with moderate CAD, moderate , admitted with ACS without a culprit. Denies any angina at present, no dyspnea. On DAPT without side effects. ROS See subjective for pertinent positives and negatives Problem List and History were reviewed in the EMR Outpatient Medications Marked as Taking for the 11/06/21 encounter (Office Visit) with Jess Franco MD: ??? aspirin chewable 81 mg tablet, Take 81 mg by mouth daily. ??? atorvastatin (LIPITOR) 40 mg tablet, Take 1 Tablet by mouth every evening. ??? carvediloL (COREG) 6.25 mg tablet, Take 1 Tablet by mouth 2 times daily with breakfast and dinner. ??? clopidogreL (PLAVIX) 75 mg tablet, Take 1 Tablet by mouth daily for 90 days. ??? metFORMIN (GLUCOPHAGE) 1,000 mg tablet, Take 1,000 mg by mouth every morning. ??? metFORMIN (GLUCOPHAGE) 1,000 mg tablet, Take 500 mg by mouth every evening. ??? ONETOUCH ULTRA BLUE TEST STRIP test strips, TEST TWICE DAILY ??? ONETOUCH ULTRASOFT LANCETS, TEST TWICE DAILY ??? TRULICITY 0.75 mg/0.5 mL subcutaneous pen, Inject 0.75 mg into the skin once a week. On Sundays Objective BP 126/70 (BP Cuff Location: Right arm, BP Patient Position: Sitting, BP Cuff Sizes: Adult, large) Pulse 56 Wt (!) 103.9 kg (229 lb) SpO2 99% BMI 31.96 kg/m?? Physical Exam RHR 56/min, S1S2, BLANE 2/6 2nd RICS. No radiation. No JVd. Luns cta b/l. No peripheral edema. Diagnostics:Reviewed and discussed. I spent a total of 20 minutes on the date of this encounter meeting with the patient and reviewing documentation/coordinating care as described in the above note. documented in this encounter Plan of Treatment Upcoming Encounters Date Type Department Care Team (Late st Contact Info) Description 04/02/2024 11:15 EDT Telemedicine [facility] Urology - [address] [phone] David Bhatt, [address] [facility] [address] [place] [phone] 07/12/2024 12:30 EST Hospital Encounter [place] [address] [facility] [address] [place] [address] [phone] Rodrigo Noyola MD [address] [place] [phone] Paroxysmal atrial fibrillation (HCC-CMS) 07/12/2024 12:30 EST - 07/12/2024 17:00 EST Surgery [place] [address] [facility] [address] [place] [address] [id number] Rodrigo Noyola MD [address] [place] [phone] Bryce Woo [[id number] (CPT??)] 07/23/2024 11:00 EST Office Visit [facility] [address] [place], [place] [address] Malini Euceda MD 111 [facility] [address] [place] [phone] documented as of this encounter Visit Diagnoses Diagnosis Irregular heart beat- Primary Cardiac dysrhythmia, unspecified NSTEMI (non-ST elevated myocardial infarction) (HCC-CMS) Acute myocardial infarction, subendocardial infarction, episode of care unspecified Moderate aortic stenosis Aortic valve disorders Coronary artery disease involving augustine coronary artery of augustine heart without angina pectoris Hypertension, unspecified type Hyperlipidemia, unspecified hyperlipidemia type Paroxysmal atrial fibrillation (HCC-CMS)- Primary Atrial fibrillation Paroxysmal atrial fibrillation (HCC-CMS) Atrial fibrillation documented in this encounter Care Teams Group Controller Relationship Specialty Start Date End Date Jessie Velasco [address] [facility] [place] [place] [address] PCP - General Internal Medicine - Primary Care 08/26/21 documented as of this encounter
--- OUTSIDE RECORDS SUMMARY | 2024-03-27 17:27 | XMS_ITS | Encounter Summary ---
Author Organization [facility] Address [address] [place] [address] Care Team Providers Care Hospital Carrier Name Role Phone KristaJessie Frank Primary Care Provider [phone] Malini Euceda MD Unavailable [phone] Reason for Visit * Reason Onset Date Comments New/Evolving Symptoms 12/14/2021 Encounter Details Date Type Department Care Team (Late st Contact Info) Description 12/14/2021 Telephone [facility] Cardiology Clinic [address] [place] [address] Nicole Macdonald RN New/Evolving Symptoms Social History Tobacco Use Types [...] Miscellaneous Notes * Telephone Encounter - Nicole Macdonald RN - 12/14/2021 1017 EDT Sonia POWELL from cardiac rehab called, seeing patient today and he states last evening 12/13/21 had 1 hour of palpitations, describes 6-7 beats rapid HR with a pause, he was not symptomatic with this event. He was wearing the ZIO patch at that time and monitor was put in the mail 12/14/21. While seen today in cardiac rehab monitor has shown SA with rare PVC's rates WNL. He wanted Dr. Euceda to be aware of this. Onto Dr. Euceda for information. documented in this encounter Plan of Treatment Upcoming Encounters Date Type Department Care Team (Late st Contact Info) Description 04/02/2024 11:15 EDT Telemedicine [facility] Urology - [facility] [place] [address] [place], [place] [phone] David Bhatt, DO 111 [facility], [address] [place] [phone] 07/12/2024 12:30 [facility] Hospital Encounter [place] 1 EP [facility] [address] [place], [place] [address] Rodrigo Noyola MD [address] [place] [phone] Paroxysmal atrial fibrillation (HCC-CMS) 07/12/2024 12:30 EST - 07/12/2024 17:00 EST Surgery [place] [address] EP [facility] [address] [place], [place] [phone] Rodrigo Noyola MD [address] [place] [phone] Bryce Woo [[id number] (CPT??)] 07/23/2024 11:00 EST Office Visit [facility] Cardiology Clinic [address] [place] [phone] Malini Euceda MD [address] [place] [phone] documented as of this encounter Visit Diagnoses Not on filedocumented in this encounter Care Teams Hospital Carrier Relationship Specialty Start Date End Date Jessie Velasco [address] [place] [address] [phone] PCP - General Internal Medicine - Primary Care 08/26/21 Malini Euceda MD [address] [facility] [address] [place] [phone] Consulting Clinician Cardiovascular Disease 11/12/21 documented as of this encounter
--- OUTSIDE RECORDS SUMMARY | 2024-03-27 17:27 | XMS_ITS | Encounter Summary ---
Author Organization [facility] Address [address] [place] [address] Care Team Providers Care Doper Name Role Phone Jessie Velasco Primary Care Provider [phone] Encounter Details Date Type Department Care Team (Late st Contact Info) Description 08/27/2021 12:14 EST - 08/27/2021 13:14 EST Surgery [facility] Invasive Cardiology Unit [address] [place] [address] Jess Franco MD [address] [place], [place] [id number] Left Heart Cath Surgery Details Date/Time Status Location OR Service Patient Class Case Class Case Type Trauma Case? 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 2 Interventional Cardiology Inpatient Panel 1 Procedure LRB Anes Op Region Wound Class Comments Left Heart Cath Left Chest Surgeon Surgeon Role Service Panel Jess Franco MD Primary Interventional Ca rdiology 1 Pasha Moon MD Fellow Interventional Cardiology 1 documented in this encounter Social History Tobacco [...] Sign Reading Time Taken Comments Blood Pressure 129/73 08/27/2021 1303 EST Pulse - - Temperature 36.5 ??C (97.7 ??F) 08/27/2021 0815 EST Respiratory Rate 16 08/27/2021 1100 EST Oxygen Saturation 100% 08/27/2021 1303 EST Inhaled Oxygen Concentration - - Weight 100.3 kg (221 lb 3.2 oz) 08/26/2021 1600 EST Height 180.3 cm (5' 10.98) 08/26/2021 1600 EST Body Mass Index 30.85 08/27/2021 1602 EST documented in this encounter Functional Status [...] shopping? (15 years old or older) No 08/26/2021 Cognitive Status Response Date of Assessm ent Because of a physical, menta l, or emotional condition, do you have serious difficulty concentrating, remembering, or making decisions? (5 years old or older) No 08/26/2021 documented as of this encounter Discharge Summaries * Markel Elder MD - 08/27/2021 1800 EST Cardiology Discharge Summary Primary Care Provider: Jessie Velasco Attending Physician: Markel Elder MD Inpatient admit date: N/A Initial observation date (if different): 08/26/2021 Discharge Date: 08/27/2021 Disposition: Home or self care Problems and Procedures Admitting Diagnosis: NSTEMI (non-ST elevated myocardial infarction) ([facility]) ([facility]) Final Hospital Diagnosis: NSTEMI Additional Problems Managed in the Hospital Active Hospital Problems Diagnosis Date Noted ??? *NSTEMI (non-ST elevated myocardial infarction) (H[facility]-CMS) ([facility]) 08/26/2021 Resolved Hospital Problems No resolved problems to display. Principal Procedure: [facility] Date: 08/27/21 Diagnostic Cardiac Study Results Left main: short Left anterior descending: mid 50%, dFR 0.96 Left circumflex: OM1 50%, DFR 0,98 Right coronary artery: prox 50%, small non- dominant Grafts: NA Secondary Procedures: TTE 08/27/21 Left Ventricle The left ventricular cavity was normal in size. Left ventricular systolic function was normal with an ejection fraction of 60-65%. The estimated left ventricular ejection fraction by biplane Lindquist's method was 64 %. Left ventricular diastolic parameters were normal. There was moderate hypertrophy of the left ventricle. Left ventricular wall motion was normal; there were no regional wall motion abnormalities. Right Ventricle The right ventricular cavity was normal in size. Right ventricular systolic function was normal. Right ventricular wall thickness was normal. Left Atrium The left atrium was normal in size. Right Atrium The right atrium was normal in size. Aortic Valve The aortic valve structure was trileaflet. The aortic leaflets were moderately thickened and moderately calcified. There was moderate aortic valve stenosis. There was no aortic valve regurgitation. AV Peak Gradient: 34mmHg. AV Mean Gradient: 17mmHg. AV Area VTI: 1.1. Mitral Valve Mitral valve structure was normal. There was trace mitral regurgitation. There was no significant mitral valve stenosis. Tricuspid Valve Tricuspid valve structure was normal. There was no tricuspid valve regurgitation. There was no tricuspid valve stenosis. Pulmonic Valve The pulmonic valve was not well visualized. There was no pulmonic valve regurgitation. There was no pulmonic valve stenosis. Pulmonic Artery Unable to assess PA pressure. Ascending Aorta The aorta was normal in size. Pericardium There was no pericardial effusion. IVC/SVC The inferior vena cava was normal in size. Hospital Course Ralph Garnica is a 71 y.o. man with a medical history of T2DM, HTN, and HLD who presented to [facility] as a transfer from [facility] due to NSTEMI ?? He reports that he had been in his usual state of health when he awoke from sleep the morning of admission with severe left-sided substernal chest pressure. This persisted for several hours, and at the recommendation of his and a nurse at his PCP office, presented to the hospital for further evaluation. ?? At [facility], he was found to have a troponin of 0.289, which up trended to 0.735 on recheck. Other labsthere were notable for a creatinine of 1.26 (baseline 1.2 many years ago), and a normal CBC. EKG showed sinus arrhythmia, T wave inversions in leads I, II, and V1 through V6, as well as a right bundle branch block. ?? He was transferred to [facility] for further care. Upon arrival, pt was hemodynamically stable and febrile. He was continued on ASA/heparin gtt and underwent LHC which showed 50% stenosis in his LAD, OM1,and RCA however no flow limiting disease based on DFR. His TTE showed normal EF 60-65% w/ moderate LVH and moderate (peak 34, Mean 17, VTI 1.1). He was asymptomatic, VSS on RA, and independently ambulatory. He was discharged on the meds as detailed below w/ PCP and Cardiology follow-up. If pt has persistent chest pain, could consider additional anti-anginal therapies for possible component of microvascular disease. Clinical Issues Needing Follow-up: #NSTEMI - cont ASA 81mg every day, cont atorvastatin 40mg every day - start Plavix 75mg every day for at least 6mo and until f/u w/ Cardiology d/t NSTEMI even though no PCI (d/w pt and rx was called in for pt after discharge) - start carvedilol 6.25mg BID - hold amlodipine 5mg every day -- if pressures allow in outpt setting, would add back amlodipine for anti-anginal effect - hold BRILLIANDEER LOPPER losartan -- would restart if bp allows, held on discharge given systolics in 110s Allergies and Immunizations No Known Allergies Immunization History Administered Date(s) Administered ??? Covid-19 mRNA Vaccine (TraktoPRO COVID-19) PF 0.3 ml IM (12 yrs+) 11/14/2020, 12/05/2020, 06/17/2021 ??? Historical Hepatitis A Vaccine, Unspecified 05/16/2006, 07/04/2006 ??? Historical Polio Vaccine, Unspecified 05/16/2006, 07/04/2006 ??? Historical Tetanus Diphtheria Vaccine, Unspecified 05/16/2006, 07/04/2006 ??? Historical Typhoid Vaccine, Unspecified 05/16/2006 ? ? Influenza Vaccine =>3yo Split IM 06/27/2013 ??? Influenza Vaccine High Dose (FLUZONE HIGH DOSE) PF 0.7 ml IM (65 yrs+) 06/02/2020 ??? Influenza Vaccine MDCK Quad (FLUCELVAX) PF 0.5 ml IM (4 yrs+) 08/08/2019 ??? Influenza Vaccine Quad (FLUZONE) MDV w/preserv 0.5 ml IM (6 mos+) 05/25/2017, 07/07/2018 ??? Pneumococcal Conj Vacc PCV13 (PREVNAR-13) IM 06/18/2016 ? ? Pneumococcal Polysaccharide (PPSV23) Vaccine (PNEUMOVAX-23) =>2YO SQ/IM 08/04/2012, 05/23/2020 ? ? Td (Adult) 5 Lf Vaccine (TENIVAC) Preservative Free =>7yo IM 10/14/2016 ??? Yellow Fever Vaccine SQ 05/16/2006 ??? Zostavax (Zoster Vaccine, Live) SQ 08/04/2012 Transition of Care Plans Condition at Discharge Improved Assessment at Discharge Vital signs: Patient Vitals for the past 12 hrs: BP Heart Rate Resp Temp SpO2 O2 Flow Rate (L/min) O2 Device 08/27/21 1737 116/59 69 BPM -- -- -- -- None 08/27/21 1735 126/69 57 BPM -- -- -- -- -- 08/27/21 1734 -- 59 BPM -- -- -- -- -- 08/27/21 1700 114/67 56 BPM -- -- -- -- -- 08/27/21 1640 -- 56 BPM -- -- -- -- -- 08/27/21 1633 -- 57 BPM -- -- -- -- -- 08/27/21 1632 -- 57 BPM -- -- 97 % -- -- 08/27/21 1602 114/51 -- -- -- -- -- -- 08/27/21 1601 120/62 65 BPM -- -- 95 % -- None 08/27/21 1500 129/64 -- -- -- 98 % -- -- 08/27/21 1400 116/65 -- -- -- 95 % -- -- 08/27/21 1325 114/72 -- 16 36.4 ??C (97.5 ??F) 96 % -- None 08/27/21 1303 129/73 56 BPM -- -- 100 % 2 l/min -- 08/27/21 1100 -- 51 BPM 16 -- -- -- -- 08/27/21 0815 133/75 61 BPM 18 36.5 ??C (97.7 ??F) 97 % -- None Is the patient being discharged with a diagnosis of Systolic Heart Failure? No Coumadin Management N/A Non-Cardiac Studies at Time of Discharge none Results Pending at Discharge Test results still pending from this admission None Last Lab Results at Discharge Creatinine: Lab Results Component Value Date CREATININE 1.16 08/27/2021 CBC: Lab Results Component Value Date WBC 5.73 08/27/2021 RBC 5.25 08/27/2021 HGB 16.0 08/27/2021 HCT 45.3 08/27/2021 MCV 86 08/27/2021 MCH 30.5 08/27/2021 MCHC 35.3 08/27/2021 PLT 199 08/27/2021 DIFFTYPE Auto 08/26/2021 Electrolytes: Lab Results Component Value Date NA 139 08/27/2021 K 4.5 08/27/2021 CL 102 08/27/2021 CO2 25 08/27/2021 PLT: Lab Results Component Value Date PLT 199 08/27/2021 Lipid Profile: Lab Results Component Value Date CHOL 155 08/27/2021 TRIG 114 08/27/2021 HDL 49 08/27/2021 LDLBASE 83 08/27/2021 CHOLHDL 3.2 08/27/2021 No results found for: HGBA1C Discharge Follow Up Follow-up appointments and procedures Amb Consult/Follow Up Primary Care Physician Reason for Request: f/u after hosp for NSTEMI Authorizing Provider: Adams Murrell MD Amb Consult/Follow Up Cardiology Reason for Request: f/u after hosp for NSTEMI, LHC w/o flow limiting disease Authorizing Provider: Adams Murrell MD Appointments We Recommend but have not been Scheduled Adams Murrell MD Internal Medicine, PGY-2 08/27/21 18:57 Attestation Statement: I have seen and evaluated the patient. I agree with assessment and plan as documented. Markel Elder MD documented in this encounter Discharge Instructions * Discharge Instr - AVS First Page* Adams Murrell MD - 08/27/2021 18:17 EST You were seen in the hospital for chest pain and underwent left heart catheterization which showed some cholesterol build up but no significant narrowing that would require stenting. Please pay attention to your medications as detailed below, some of your medications have changed. START taking: - carvedilol 6.25mg BID STOP taking: - amlodipine 5mg every day - losartan 50mg every day Please follow-up with your PCP within the next week or so. We have also made a referral for you to follow up with one of our Cardiologists at [facility]. If you have not heard back from the [facility] office within a week or so, please reach out to them at regarding scheduling anappointment. documented in this encounter Medications at Time of Discharge Medication Sig Dispensed Refills Start Date End Date metFORMIN (GLUCOPHAGE) 1,000 mg tabletIndications:type 2 diabetes mellitus Take 1 Tablet by mouth every morning. metFORMIN (GLUCOPHAGE) 1,000 mg tabletIndications:type 2 diabetes mellitus Take 0.5 Tablets by mouth every evening. Chef SurfingUCH ULTRA BLUE TEST STRIP test strips 06/02/2020 ONETOUCH ULTRASOFT LANCETS 06/02/2020 TRULICITY 0.75 mg/0.5 mL subcutaneous penIndications:type 2 diabetes mellitus Inject 0.75 mg into the skin once a week. On Sundays06/12/2020 aspirin chewable 81 mg tablet Take 81 mg by mouth daily. 02/10/2022 atorvastatin (LIPITOR) 40 mg tabletIndications:hyper lipidemia Take 40 mg by mouth every evening. 09/25/2021 carvediloL (COREG) 6.25 mg tablet Take 1 Tablet by mouth 2 times daily with breakfast and dinner. 60 Tablet 2 08/28/2021 09/25/2021 clopidogreL (PLAVIX) 75 mg tablet Take 1 Tablet by mouth daily for 90 days. 30 Tablet 2 08/28/2021 09/25/2021 documented as of this encounter Ordered Prescriptions Prescription Sig Dispensed Refills Start Date End Da te clopidogreL (PLAVIX) 75 mg tablet Take 1 Tablet by mouth daily for 90 days. 30 Tablet 2 08/28/2021 09/25/2021 carvediloL (COREG) 6.25 mg tablet Take 1 Tablet by mouth 2 times daily with breakfast and dinner. 60 Tablet 2 08/28/2021 09/25/2021 documented in this encounter Discharge Disposition Disposition Code Departure Means Destination Home or Self Fdc documented in this encounter Progress Notes * Little Wu, ANDRE - 08/27/2021 6751 EST Chart review completed and discussed the plan of care with the direct care RN and/or primary care team. Primary Insurance: Medicare Secondary Insurance: CBA Blue Patient with no apparent Case Management needs at this time. No housing, transportation, insurance,resources concerns identified at this time. Supports in place to achieve a safe post-hospital transition. No identified barriers to accessing necessary care and/or follow-up after discharge. flight attendant/inflight supervisor/Missile Technician will continue to follow patient's progress and remain available if situation changes for coordination of care, psychosocial support and/or discharge planning. Patient is s/p LHC without intervention. Potential d/c later today. Little Wu RN AC #[id number] * Janes Harris MD - 08/27/2021 0635 EST Cardiology Progress note Service Date: 08/27/2021 Admit Date: 08/26/2021 16:25 Reason for Admission: 71 y.o. male admitted with a chief complaint of chest pain and now with a principal diagnosis of NSTEMI. Events/ Procedures in the last 24 Hours: Admitted Subjective/Objective Subjective Mr. Garnica endorses a twinge of chest pain this morning that quickly self- resolved. Last significant chest pain was last night. No dyspnea, palpitations, orthopnea. Review of Systems Pertinent items are noted in Subjective/HPI Objective Vital Signs Patient Vitals for the past 8 hrs: BP Heart Rate Resp Temp SpO2 O2 Flow Rate (L/min) O2 Device 08/27/21 1325 114/72 -- 16 36.4 ??C (97.5 ??F) 96 % -- None 08/27/21 1303 129/73 56 BPM -- -- 100 % 2 l/min -- 08/27/21 1100 -- 51 BPM 16 -- -- -- -- 08/27/21 0815 133/75 61 BPM 18 36.5 ??C (97.7 ??F) 97 % -- None Weight: No data found. Intake/Output Summary (Last 24 hours) at 08/27/2021 1558 Last data filed at 08/27/2021 1302 Gross per 24 hour Intake 642.98 ml Output -- Net 642.98 ml Physical Exam General: No acute distress, comfortable, answering questions appropriately HEENT: Head atraumatic and normocephalic. EOMI. Moist mucous membranes. Sclera/conjunctiva clear. Neck: Supple. Trachea midline. CV: normal heart rate, irregular rhythm, systolic murmur present. Respiratory: CTAB, No crackles or wheezing Abdomen: Soft, tender to palpation, no masses, no distension, no rebound/guarding. Extremities: Warm, well perfused, no LE edema. Neuro: Alert and oriented x 3. CN and strength grossly intact with no focal deficit. Psych: Appropriate mood and affect. Skin: No rashes, lesions, or excoriations. Is PICC or central line present? No, PICC/Central line not present. Labs CBC: Recent Labs 08/26/21 1409 08/26/21 1718 08/27/21 0617 WBC 4.30 5.54 5.73 HGB 15.1 15.3 16.0 HCT 43.5 44.5 45.3 MCV 89 87 86 PLT 194 215 199 BMP: Recent Labs 08/26/21 1057 08/27/21 0617 CREATININE 1.26* 1.16 BUN 19 19 NA 141 139 K 4.7 4.5 CL 101 102 CO2 30 25 CALCIUM 10.1 9.7 MG 1.6* -- Coags: No results for input(s): PROTIME, INR, PTT in the last 72 hours. LFTs: Recent Labs 08/26/21 1057 ALT 22 AST 27 ALKPHOS 101 TBIL 0.6 Cardiac Biomarkers: Recent Labs 08/26/21 1718 08/27/21 0014 08/27/21 0948 TROPONINI 0.773* 1.210* 0.642* Lipids: Recent Labs 08/27/21 0617 CHOL 155 TRIG 114 HDL 49 LDLBASE 83 CHOLHDL 3.2 Assessment/Plan Assessment/Plan NSTEMI: high suspicion for type 1 event. Symptomatic with chest pressure. - C today - telemetry monitoring class I - trend troponin q8h until peak - ASA 325mg loaded at OSH, cont 81mg daily - heparin gtt per protocol - atorvastatin 80mg daily (increased from BRILLIANDEER LOPPER 40mg daily) - NPO for [facility] - ordered lipid profile and A1c - echo ordered - replete if Mg <2 or K <4 - Goal SBP <140 and HR <70 ?? Hyperlipidemia/CAD: Lipids ordered - increase BRILLIANDEER LOPPER atorvastatin to 80mg daily ?? Type 2 Diabetes: A1c ordered - Consistent carbohydrate diet - POCT Glc before meals and qhs - aspart SSI ?? Hypertension: Goal BP: <140/90 -- start carvedilol 6.125 mg BID -- hold BRILLIANDEER LOPPER amlodipine VTE Prophylaxis Hep gtt Discharge Plan Home or self care Janes Harris MD 08/27/2021 15:58 documented in this encounter H&P Notes * Markel Elder MD - 08/26/2021 1716 EST Images from the original note were not included. Cardiology History and Physical Admite Date: 08/26/2021 Date of Service: 08/26/2021 LOS: 1 day Service Date: 08/26/2021 Admit Date: 08/26/2021 16:25 Primary Care Provider: Jessie Velasco Chief Complaint: Chest Pressure HPI Ralph Garnica is a 71 y.o. man with a medical history of T2DM, HTN, and HLD who presented to [facility] as a transfer from [facility] due to NSTEMI He reports that he had been in his usual state of health when he awoke from sleep the morning of admission with severe left-sided substernal chest pressure. This persisted for several hours, and at the recommendation of his and a nurse at his PCP office, presented to the hospital for further evaluation. At [facility], he was found to have a troponin of 0.289, which up trended to 0.735 on recheck. Other labsthere were notable for a creatinine of 1.26 (baseline 1.2 many years ago), and a normal CBC. EKG showed sinus arrhythmia, T wave inversions in leads I, II, and V1 through V6, as well as a right bundle branch block. He was transferred to [facility] for further care. Upon arrival, pt was hemodynamically stable and febrile. He was chest pain/pressure free on arrival, and denied other bothersome symptoms. He reports a history of occasional intermittent chest pressure similar to his presentation though not nearly as sev ere. He reports that these episodes occurred only at rest. Review Of Systems: Full 10 point ROS obtained, pertinent findings noted in HPI. Prior Cardiac History: [facility] in 2005 with no significant disease Cardiac risk factors: CAD: none known Smoking: none HTN: yes DM: yes Family history: none known HLD: yes Social History: Mr. Garnica lives independently in [place] with his . 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 Denies tobacco use and reports minimal alcohol use. PMH PSH Past Medical History: Diagnosis Date ??? BPH (benign prostatic hyperplasia) ??? Diabetes mellitus (HCC) ??? Hyperlipidemia ??? Hypertension No past surgical history on file. Social History Family History Social History Tobacco Use ??? Smoking status: Never Smoker ??? Smokeless tobacco: Never Used Substance Use Topics ??? Alcohol use: Yes Comment: 1-2 beers on the weekend No family history on file. Allergies No Known Allergies Medications Prior to Admission Medication Sig ??? amLODIPine (NORVASC) 5 mg tablet Take 5 mg by mouth daily. ??? aspirin chewable 81 mg tablet Take 81 mg by mouth daily. ??? atorvastatin (LIPITOR) 40 mg tablet Take 40 mg by mouth every evening. ??? losartan (COZAAR) 50 mg tablet Take 50 mg by mouth daily. ??? metFORMIN (GLUCOPHAGE) [...] skin once a week. On Sundays Objective Vitals Temp: [36.5 ??C (97.7 ??F)] , Heart Rate: [61 BPM-79 BPM] , Pulse: --, Resp: [10-16] , BP: (142-186)/(77-103) , SpO2: [97 %-100 %] , Numeric Pain Level (Scale 1-10): 0 Weight : 100.3 kg (221 lb 3.2 oz) Body mass index is 30.87 kg/m??. Physical Exam: BP (!) 157/80 Ht 180.3 cm (70.98) Wt 100.3 kg (221 lb 3.2 oz) SpO2 99% BMI 30.87 kg/m?? General: No acute distress, comfortable, answering questions appropriately HEENT: Head atraumatic and normocephalic. EOMI. Moist mucous membranes. Sclera/conjunctiva clear. Neck: Supple. Trachea midline. CV: normal heart rate, irregular rhythm, systolic murmur present. Respiratory: CTAB, No crackles or wheezing Abdomen: Soft, tender to palpation, no masses, no distension, no rebound/guarding. Extremities: Warm, well perfused, no LE edema. Neuro: Alert and oriented x 3. CN and strength grossly intact with no focal deficit. Psych: Appropriate mood and affect. Skin: No rashes, lesions, or excoriations. LABS: Recent Labs 08/26/21 1057 08/26/21 1409 WBC 4.52 4.30 RBC 5.41 4.89 HGB 16.4 15.1 HCT 48.3 43.5 MCV 89 89 MCH 30.3 30.9 MCHC 34.0 34.7 PLT 213 194 NEUTROABS 3.02 -- Recent Labs 08/26/21 1057 NA 141 K 4.7 CL 101 CO2 30 BUN 19 CREATININE 1.26* CALCIUM 10.1 MG 1.6* LABALBU 4.8 Recent Labs 08/26/21 1057 TBIL 0.6 ALKPHOS 101 AST 27 ALT 22 Recent Labs 08/26/21 1057 08/26/21 1430 TROPONINI 0.289* 0.735* ECG: Assessment Ralph Garnica is a 71 y.o. male with a history significant for T2DM not on insulin, Hypertension, and Hyperlipidemia. He presents to [facility] as a transfer from [facility] due to NSTEMI. Admitted to cardiology for ischemic evaluation. Plan NSTEMI: high suspicion for type 1 event. Symptomatic with chest pressure. - admit with telemetry monitoring class I - trend troponin q8h until peak - ASA 325mg loaded at OSH, then 81mg daily - heparin gtt per protocol - atorvastatin 80mg daily (increased from BRILLIANDEER LOPPER 40mg daily) - NPO at midnight for [facility] - ordered lipid profile and A1c - echo ordered - replete if Mg <2 or K <4 - Goal SBP <140 and HR <70 Hyperlipidemia/CAD: Lipids ordered - increase BRILLIANDEER LOPPER atorvastatin to 80mg daily Type 2 Diabetes: A1c ordered - Consistent carbohydrate diet - POCT Glc before meals and qhs - aspart SSI Hypertension: Goal BP: <140/90 -- start carvedilol 6.125 mg BID -- hold BRILLIANDEER LOPPER amlodipine Diet: cardiac diet VTE Prophylaxis: heparin gtt Consults: none CODE STATUS: full Admission Status Observation. Anticipated duration of hospitalization is less than two midnights. uSsie Calvo MD 08/26/21 19:11 PGY-2 Internal Medicine Pager [phone] & Cortext Attestation Statement: I have seen and evaluated the patient. I agree with assessment and plan as documented. Markel Elder MD documented in this encounter Procedure Notes * Zeglin, Jess A, MD - 08/27/2021 1304 EST Cardiovascular Catheterization Laboratory Preliminary Report -- Catheterization Date of Service/Procedure: 08/27/2021 Attending Physician: Jess Franco MD Fellow: Pasha Moon MD Pre-Procedure Diagnosis /NCDR Indication: Ralph Garnica is a 71 y.o. year old male with ACS <= 24 hrs. Chest Pain Symptom Assessment: Typical Angina NCDR Indication for PCI: NSTE - ACS If NOT STEMI or NSTE-ACS, Syntax Score: Low Heart Failure: No CHSA Clinical Frailty Scale: 3: Managing Well Prior Stress Testing? No Anesthesia: A moderate level of anesthesia/conscious sedation was used in addition to local anesthesia. Access: Right radial artery Procedure: He was brought to [facility] Cardiac Catheterization Laboratory for the procedure: Diagnostic coronary/graft angiography and Pressure wire. Closure: TR Band Post-Procedure Condition: The condition of the patient was Good. Complications: None. IV Contrast Total: 120 mL X-ray Dose: 428mGy Estimated Blood Loss: Minimal. Unless otherwise noted,there were no specimens removed, cultures obtained, or drains retained. Research Study: Patient is not enrolled in a research study. Diagnostic Cardiac Study Results Left main: short Left anterior descending: mid 50%, dFR 0.96 Left circumflex: OM1 50%, DFR 0,98 Right coronary artery: prox 50%, small non- dominant Grafts: NA Left Ventriculography and Hemodynamic Results None Endovascular Study Results None Post-Procedure Diagnostic Conclusion: Medical therapy is indicated. Plan: See post-procedure orders. Aspirin 81mg PO daily. High intensity statin therapy PO daily. woudl consider CCB for mictovascular dysfunction At the completion of the procedure, the attending physician has explained the findings, therapies, any complications and treatment plan to the patient. With the patients consent, all family members and patient support persons who were present at the conclusion of the procedure have been notified ofthese results and treatment plans as well. Post Procedure Follow Up: Patient to follow up with PCP in 6 weeks Post Interventional Conclusion/Physician Disposition: (check one main category) Inpatient procedure, continue inpatient status (no procedural complication required) Jess Franco MD PagerNumber: [phone] 08/27/2021 13:04 documented in this encounter Miscellaneous Notes * Plan of Care - Maricarmen West RN - 08/27/20211851 EST Nursing Discharge Note D: Patient noted with discharge orders to: Home. A: Prescriptions faxed to pharmacy. Reviewed discharge instructions and prescriptions with Patient and Family IV and tele removed. Belongings collected and sent home with patient. R: Patient and Family verbalized understanding of discharge instructions and denied further questions. MARICARMEN WEST RN 08/27/2021 18:52 * Plan of Care - Nayana Rob RN - 08/27/2021 0520 EST D: Assumed care of pt at 1900. Pt is a transfer from [facility] on 08/26 due to NSTEMI and severe L side chest pressure. Pts trops still uptrending last result at 00:16 was 1.21. EKG (+) for T wave inversions and RBBB. Currently pt denies having chest pain states he has not had any chest pain since his arrival. Pt is AAOx3, independent on a heparin gtt running at 13mL/hr last UFH therapeutic. Plan is for pt to receive [facility] this AM. A: Pt assessed and medicated per protocol. BG check Q6H. Heparin gtt maintained. Pt made aware of NPO status and verbalized understanding. Fall and safety precautions in place. Tele monitored. Troponin trended. R: VSS. Pt appears to be resting comfortably and denies any chest pain since arrival. Safety maintained. Problem: Daily Care Plan Goals Goal: Care Plan Documentation Outcome: Ongoing Problem: High Fall Risk: Goal: Patient will Remain Free of Falls due to Med. Side Effects Outcome: Ongoing * Plan of Care - Fabian Ho RN - 08/26/20210 EST Problem: Daily Care Plan Goals Goal: Care Plan Documentation Outcome: Met This Shift Flowsheets (Taken 08/26/2021 1632) Area of Focus: Circulatory Status Goal This Shift: Pt stable without cp Data: Assumed care of pt at 1600. Pt admit for chest tightness as an admit from [facility]. SA with RBBB on tele. No c/o pain, SOB. Heparin gtt running at 13ml/hr. UFH scheduled for 2029. Pt independent inthe room. Action: All medications administered as ordered (see eMAR). Tele monitored per MR4 policy. Continually assessed for pain and offered interventions. Clustered care to promote rest. Admission database completed, heparin transfer orders completed. Response: Pt pleasant and cooperative, able to make needs known. Resting comfortably with call bellin reach. Plan for [facility] tomorrow, pt understands NPO at midnight. FABIAN HO RN 08/26/2021 18:52 documented in this encounter Plan of Treatment Upcoming Encounters Date Type Department Care Team (Late st Contact Info) Description 04/02/2024 11:15 EDT Telemedicine [facility] Urology - [address] [phone] David Bhatt DO [address] [place] [address], Level 5 [place] [phone] 07/12/2024 12:30 EST Hospital Encounter [facility] [address] [place] [phone] Rodrigo Noyola MD [address] [place] [address] Level 1 [place] [phone] Paroxysmal atrial fibrillation (HCC-CMS) 07/12/2024 12:30 EST - 07/12/2024 17:00 EST [facility] [address] [place] [address] [id number] Rodrigo Noyola MD [address] [phone] Albation A-Fib [31710 (CPT??)] 07/23/2024 11:00 EST Office Visit [facility] [address] [place] [address] Malini Euceda MD [address] [phone] documented as of this encounter Procedures Procedure Name Priority Date/Time Associated Diagnosis Comments ECG REPORT - SCANNED 09/07/2021 14:48 EST ECG REPORT - SCANNED 09/02/2021 8:00 EST ECG REPORT - SCANNED 09/02/2021 8:00 EST ECG REPORT - SCANNED 08/31/2021 8:47 EST TRANSTHORACIC ECHO (TTE) COMPLETE Routine 08/27/2021 15:50 EST EKG 12-LEAD Routine 08/27/2021 15:11 EST POCT GLUCOSE, INTERFACED Routine 08/27/2021 13:38 EST CARDIAC CATHETERIZATION Routine 08/27/20 13:05 EST NSTEMI (non-ST elevated myocardial infarction) (HCC-CMS) ([facility]) TROPONIN I Routine 08/27/2021 9:48 EST HEPARIN LEVEL - UNFRACTIONATED HEPARIN STAT 08/27/2021 6:17 EST COMPLETE BLOOD COUNT Routine 08/27/2021 6:17 EST LIPID PROFILE (INCLUDES CHOLESTEROL, TRIGLYCERIDES, HDL, LDL) Routine 08/27/2021 6:17 EST BASIC METABOLIC PANEL (BMP) Routine 08/27/2021 6:17 EST POCT GLUCOSE, INTERFACED Routine 08/27/2021 5:59 EST POCT GLUCOSE, INTERFACED Routine 08/27/2021 0:20 EST TROPONIN I Routine 08/27/2021 0:14 EST POCT GLUCOSE, INTERFACED Routine 08/26/2021 21:36 EST HEPARIN LEVEL - UNFRACTIONATED HEPARIN STAT 08/26/2021 19:41 EST POCT GLUCOSE, INTERFACED Routine 08/26/2021 18:32 EST EKG 12-LEAD Routine 08/26/2021 17:34 EST TROPONIN I Routine 08/26/2021 17:18 EST COMPLETE BLOOD COUNT Routine 08/26/2021 17:18 EST documented in this encounter Results * ECG REPORT - SCANNED (09/07/2021 14:48 EST) 09/07/2021 14:[address] [employer] PROCEDURE/MINOR KIERSTEN GICAL ORDERABLES * ECG REPORT - SCANNED (09/02/2021 8:00 EST) 09/02/2021 8:[address] [employer] PROCEDURE/MINOR KIERSTEN GICAL ORDERABLES * ECG REPORT - SCANNED (09/02/2021 8:00 EST) 09/02/2021 8:[address] Con[employer] PROCEDURE/MINOR KIERSTEN GICAL ORDERABLES * ECG REPORT - SCANNED (08/31/2021 8:47 EST) 08/31/2021 8:[address] Con[employer] PROCEDURE/MINOR KIERSTEN GICAL ORDERABLES * TRANSTHORACIC ECHO (TTE) COMPLETE W/DOPPLER W/CF NO CONTRAST (08/27/2021 15:50 EST) LA Atrial Length A2C 6.5 cm [facility] LA Atrial Area A4C 25.5 cm2 [facility] LA ID/bsa, A-P 1.9 cm/m2 [facility] LV ID, ED, PLAX 5.5 3.5 - 6.0 cm [facility] LVIDD BY MMODE 5.5 cm [facility] LV ID, ES, PLAX 3.7 2.1 - 4.0 cm [facility] LA ID, A-P, ES 4.2 cm [facility] LV PW thickness, ED, PLAX 1.3 0.6 - 1.1 cm [facility] Aortic root ID 3.0 cm [facility] Aortic valve mean velocity, S 1.9 m/s [facility] LV ejection fraction, 1-p A4C 63 % [facility] LVOT mean gradient, S 2 mmHg [facility] Aortic valve area, peak velocity 1.1 cm2 [facility] Aortic mean gradient, S 17 mmHg [facility] AV LVOT peak gradient 4 mmHg [facility] LV e', lateral 0.10 m/s [facility] Mitral deceleration time 190 ms [facility] LV IVRT, DP 90 msec [facility] PO INT OF CARE LVOT area 3.1 cm2 [facility] POIN T [facility] LVOT peak velocity, S 1.1 m/s [facility] LVOT VTI, S 23.6 cm [facility] PO INT OF CARE Aortic valve peak velocity, S 2.7 m/s [facility] Aortic valve VTI, S 66.2 cm [facility] Stroke volume (SV), LVOT DP 74 ml [facility] Aortic peak gradient, S 34 mmHg [facility] Mitral peak gradient, D 2 mmHg [facility] LVOT mean velocity, S 0.6 m/s [facility] Mitral E-wave peak velocity 0.8 m/s [facility] Mitral A-wave peak velocity 0.8 m/s [facility] LV Systolic Volume Index 18.0 mL/m2 [facility] LV Diastolic Volume Index 50.0 mL/m2 [facility] AV DOI 0.39 [facility] POIN T OF C[facility] LA Atrial Length A4C 7.0 cm [facility] C[facility] LVOT ID, S 2.0 cm [facility] POI NT OF CARE EF 64 % [facility] POIN T OF C[facility] LA volume, ES, BP 72.0 ml [facility] POINT OF CARE LA volume/bsa, ES, A4C 33.0 ml/m2 [facility] LA volumes, ES, A4C 72.0 ml [facility] LA volume/bsa, ES, BP 33.0 ml/m2 [facility] LV Systolic Volume 40 mL [facility] POINT OF CARE LV Diastolic Volume 111 mL [facility] Stroke index (SV/bsa) LVOT DP 34.0 ml/m2 [facility] Aortic valve area VTI 1.1 cm2 [facility] Interventricular Septum to Posterior Wall Thickness Ratio 1.1 [facility] P OINT OF CARE IVS thickness, ED, PLAX 1.4 cm [facility] LV e', medial 0.07 m/s [facility] AV dimensionless index (DI) 0.5 [facility] LV e', average 0.09 m/s [facility] Velocity ratio, mean, LVOT/AV 0.31 [facility] Aortic valve area 1 cm2 [facility] POINT [facility] C[facility] AVAI Pk Brett 0.4 cm2/m2 [facility] PO INT OF CARE Pulmonic valve mean velocity, S 1 cm/s [facility] Ascending aorta ID, a-p 3.3 cm [facility]INT [facility] LA Atrial Area A2C 25.5 cm2 [facility] POINT OF CARE LA/aortic root ratio 1.4 [facility] LV end diastolic volume 1-p A2C 110 ml [facility] C[facility] LV ejection fraction, 1-p A2C 65 % [facility] POIN T OF CARE LV E/e', lateral 7.0 [facility]INT [facility] LV E/e', medial 0.1 [facility] N POINT OF CARE LV E/e', average 4 [facility] LV end-diastolic volume, 1-p A4C 111 ml [facility] Anatomical Region Laterality Modality Ultrasound Narrative 08/27/2021 17:24 EST ?Left??Ventricle: The left ventricular cavity was normal in size. Left ventricular systolic function was normal with an ejection fraction of 60-65%. The estimated left ventricular ejection fraction by biplane Lindquist's method was 64 %. There was moderate hypertrophy of the left ventricle. Left ventricular wall motion was normal; there were no regional wall motion abnormalities. ?Aortic??Valve: There was moderate aortic valve stenosis. AV Peak Gradient: 34mmHg. AV Mean Gradient: 17mmHg. AV Area VTI: 1.1. ?Right??Ventricle: The right ventricular cavity was normal in size. Right ventricular systolic function was normal. Left Ventricle The left ventricular cavity was normal in size. Left ventricular systolic function was normal with an ejection fraction of 60-65%. The estimated left ventricular ejection fraction by biplane Lindquist's method was 64 %. Left ventricular diastolic parameters were normal. There was moderate hypertrophy of the left ventricle. Left ventricular wall motion was normal; there were no regional wall motion abnormalities. Right Ventricle The right ventricular cavity was normal in size. Right ventricular systolic function was normal. Right ventricular wall thickness was normal. Left Atrium The left atrium was normal in size. Right Atrium The right atrium was normal in size. IVC/SVC The inferior vena cava was normal in size. Mitral Valve Mitral valve structure was normal. There was trace mitral regurgitation. There was no significant mitral valve stenosis. Tricuspid Valve Tricuspid valve structure was normal. There was no tricuspid valve regurgitation. There was no tricuspid valve stenosis. Aortic Valve The aortic valve structure was trileaflet. The aortic leaflets were moderately thickened and moderately calcified. There was moderate aortic valve stenosis. There was no aortic valve regurgitation. AV Peak Gradient: 34mmHg. AV Mean Gradient: 17mmHg. AV Area VTI: 1.1. Pulmonic Valve The pulmonic valve was not well visualized. There was no pulmonic valve regurgitation. There was no pulmonic valve stenosis. Ascending Aorta The aorta was normal in size. Pericardium There was no pericardial effusion. Pulmonic Artery Unable to assess PA pressure. Study Details Study status: Routine. Transthoracic echocardiography. M-Mode, complete 2D, complete spectral Doppler, and color Doppler.The study was interpreted by [facility]. Pertinent images and digital data are archived for permanent storage and are available for subsequent review. Scanning was performed from the apical, parasternal, subcostal and suprasternal acoustic windows. Overall the study quality was adequate. Images were obtained using cardiac ultrasound machine EPIQ #21. Susie Calvo MD CARDIAC ECHO ORDERAB LES * EKG 12-LEAD (08/27/2021 15:11 EST) 08/27/2021 15:1 1 EST Narrative [facility] EKG - 08/31/2021 8:42 EST ? [facility] ? Test Date: ?2021-08-27 Pat Name: ? [facility] ?Department: ?? [place] [address] ? Room: ? DS6769 Gender: ? Male ? 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 [id number] : ?1950 ? Requested By: RIAN ADAMS Order Number: [id number] ? Reading : ?? STANISLAW ASHER MD ? Measurements Intervals ?[place] ? Rate: ? 53 ? P: ?72 NH: ? 197 ?QRS: ?-23 QRSD: ? 166 ?T: ?116 QT: ? 452 ? QTc: ?428 ? Interpretive Statements SINUS BRADYCARDIA WITH OCCASIONAL SUPRAVENTRICULAR PREMATURE COMPLEXES BORDERLINE LEFT AXIS DEVIATION RIGHT BUNDLE BRANCH BLOCK MODERATE T-WAVE ABNORMALITY, CONSIDER ANTEROLATERAL ISCHEMIA Compared to ECG 08/26/2021 17:34:19 Sinus rhythm no longer present Sinus arrhythmia no longer present T-wave abnormality still present Possible ischemia still present I reviewed the tracing and have either agreed or edited the findings in this report. Electronically Signed On 08-31-2021 8:42:18 EST by STANISLAW ASHER MD. Procedure Note Stanislaw Asher MD - 08/31/2021 [facility] Test Date: 2021-08-27 Pat Name: RALPH GARNICA Department: Bebeto Chopra Room: [id number] Gender: Male Dental Practitioner: [id number] : 1950 Requested By: RIAN ECHEVARRIA Order Number: [id number] Reading MD: STANISLAW ASHER MD Measurements Intervals [place] Rate: 53 P: 72 NH: 197 QRS: -23 QRSD: 166 T: 116 QT: 452 QTc: 428 Interpretive Statements SINUS BRADYCARDIA WITH OCCASIONAL SUPRAVENTRICULAR PREMATURE COMPLEXES BORDERLINE LEFT AXIS DEVIATION RIGHT BUNDLE BRANCH BLOCK MODERATE T-WAVE ABNORMALITY, CONSIDER ANTEROLATERAL ISCHEMIA Compared to ECG 08/26/2021 17:34:19 Sinus rhythm no longer present Sinus arrhythmia no longer present T-wave abnormality still present Possible ischemia still present I reviewed the tracing and have either agreed or edited the findings inthis report. Electronically Signed On 08-31-2021 8:42:18 EST by STANISLAW PHILLIPS. Adams Murrell MD CARDIAC ECG ORDERABL ES Performing Organization Address City/[facility]/ZIP Co de Phone Number [facility] EKG * POCT GLUCOSE, INTERFACED (08/27/2021 13:38 EST) Glucose, POC 84 70 - 100 mg/dL 08/27/2021 14:27 EST [facility] HN LAB POC COMMENT (GLUCOSE) Test Performed by Nursing Services 08/27/2021 14:27 EST [facility] Blood CAPILLARY BLOOD / Unknown 08/27/2021 13:38 EST 08/27/2021 14:27 EST Susie Calvo MD POINT OF CARE TEST O RDERABLES Performing Organization Address City/[facility]/ZIP Co de Phone Number [facility] [address] [place] [address] * LEFT HEART CATH (08/27/2021 13:05 EST) Anatomical Region Laterality Modality 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 Study Date: ?08/27/2021 ?Accession #: ? [id number] : ? 1950 Referring: Janes Harris Diagnostic Attending: ??Jess Franco Interventional Attending: ?? Jess Franco Diagnostic Fellow: Pasha Moon MD ATTESTATION: IDr. Pasha was the initial author of this report. Dr. Jess Franco was present and supervising for the entire procedure. I, Dr. Jess Franco have reviewed and agreed with the findings of this report. PROCEDURE PLAN: A diagnostic study was performed without intervention. RESEARCH STUDY: Patient is not enrolled in any research studies. IMPRESSIONS: 1. Moderate double vessel coronary artery disease. 2. Unstable angina. SUMMARY: 1. Adverse outcomes: There were no complications. 2. LAD: Mid-vessel lesion: There is a 50%de anthony stenosis. There is HAILE ?? grade 3 flow (brisk flow) across the lesion. The lesion is ?? insignificant by pressure-derived flow reserve (dFR 0.96). 3. 1st obtuse marginal: Proximal vessel lesion: There is a 50% stenosis. ?? There is HAILE grade 3 flow (brisk flow) across the lesion. The lesion ?? is insignificant by pressure-derived flow reserve dFR 0.98) 4. Right coronary: Proximal vessel lesion: There is a 50% stenosis. RECOMMENDATIONS: 1. ACC recommendation: Medical therapy and/or counseling. 2. Aspirin 81mg PO daily. ?? High intensity statin therapy PO daily. ?? Consider CCB for mictovascular dysfunction ?? Patient to follow up with PCP in 6 weeks. HISTORY: PMH: ?? Myocardial infarction. ??Risk factors: ??Family history of coronary artery disease. Hypertension. Diabetes mellitus; on therapy with diet. Obese. Dyslipidemia. ??Allergies: ??No known allergies. LABS, PRIOR TESTS, PROCEDURES AND SURGERY: Serum potassium (K) of 4.5 mEq/l. ??Serum creatinine (current admission) of 1.16 mg/dl. ??Blood urea nitrogen of 19 mg/dl. ??Platelet count of 199 th/ul. ??Hematocrit of 45.3 %. ??Hemoglobin (pre-procedure) of 16 g/dl. STUDY DATA: Location: ??Catheterization laboratory. Sex: male. Patient is 71yr old. Height: 180.3cm. Weight: 100.3kg. BSA: 2.27m^2. Procedures performed: ?Right radial artery access. ?Left coronary angiography. ?Right coronary angiography. ANESTHESIA: Conscious sedation by cardiology staff. PROCEDURE: 1. Initial setup. The patient was brought to the laboratory in the ?? fasting state. A baseline ECG was recorded. Surface ECG leads, ?? automatic cuff blood pressure measurements, and pulse oximetric ?? signals were monitored. 2. Skin preparation. The planned puncture sites were prepped with ?? chlorhexidine and draped in the usual sterile manner. 3. Local anesthesia. Using 2% Lidocaine, local anesthetic was ?? administered to the access site(s). 4. Right radial artery access. A 6FR/.021 [place] Sheath Slender sheath ?? was advanced into the vessel. 5. Selective left coronary angiography. A 5 Fr Tig Catheter 4.0 catheter ?? was advanced into the left coronary vessel ostium under fluoroscopic ?? guidance. Contrast was injected. Images were obtained in multiple ?? projections. 6. Selective right coronary angiography. A 5 Fr Tig Catheter 4.0 ?? catheter was advanced into the right coronary vessel ostium under ?? fluoroscopic guidance. Contrast was injected. Images were obtained in ?? multiple projections. 7. Right radial artery hemostasis. Mechanical compression was applied. STUDY COMPLETION: The estimated blood loss was 10ml. All catheters inserted during the procedure were removed. The patient tolerated the procedure well and was discharged from the lab. There were no complications. ??Contrast: Isovue 120ml (total dose). ??Isovue 80ml (wasted). ??Fluoroscopy time: 13.3min. ??Fluoroscopy dose: ??28.4cGy. CORONARY ARTERIES: The coronary circulation is co-dominant. LAD: ??Mid-vessel lesion: There is a 50%de anthony stenosis. There is HAILE grade 3 flow (brisk flow) across the lesion. The lesion is insignificant by pressure-derived flow reserve (dFR 0.96). There were no site complications. 1st obtuse marginal: ??Proximal vessel lesion: There is a 50% stenosis. There is HAILE grade 3 flow (brisk flow) across the lesion. The lesion is insignificant by pressure-derived flow reserve dFR 0.98) There were no site complications. Right coronary: ??Proximal vessel lesion: There is a 50% stenosis. HEMODYNAMICS: + + + Stage description ? Condition1:Condition 1 - + + + Arterial pressure s/d (m) 106/66 (85) ? + + + * Electronically signed by Jess Franco MD 2021-08-31 09:13 Janes Harris MD CARDIAC CATH ORDERAB LES * (ABNORMAL) TROPONIN I (08/27/2021 9:48 EST) Troponin I (ng/mL) 0.642(H) <0.034 ng/mL 08/27/2021 10:46 EST [facility] Blood VENOUS BLOOD / Unknown Venipuncture / Unknown 08/27/2021 9:48 EST 08/27/2021 10:02 EST Narrative [facility] - 08/27/2021 10:46 EST The results of this assay can be falsely lowered due to the consumption of Biotin. Janes Harris MD CHEMISTRY & BLOOD GA S ORDERABLES Performing Organization Address [facility]/ZIP Co de Phone Number [facility] [address] [place] [address] * (ABNORMAL) BASIC METABOLIC PANEL (BMP) (08/27/2021 6:17 EST) Sodium 139 136 - 145 mmol/L 08/27/2021 7:02 [facility] Potassium 4.5 3.5 - 5.0 mmol/L 08/27/2021 7:02 [facility] Chloride 102 96 - 110 mmol/L 08/27/2021 7:02 [facility] CO2 Total 25 22 - 32 mmol/L 08/27/2021 7:02 [facility] Anion Gap 12 8 - 16 08/27/2021 7:02 [facility] Glucose 134(H) 70 - 100 mg/dL 08/27/2021 7:02 [facility] Calcium 9.7 8.5 - 10.5 mg/dL 08/27/2021 7:02 [facility] BUN 19 10 - 26 mg/dL 08/27/2021 7:02 [facility] Creatinine 1.16 0.66 - 1.25 mg/dL 08/27/2021 7:02 [facility] eGFR 63 >60 mL/min/1.73 m2 08/27/2021 7:02 [facility] Blood VENOUS BLOOD / Unknown Venipuncture / Unknown 08/27/2021 6:17 EST 08/27/2021 6:28 EST Susie Calvo MD CHEMISTRY & BLOOD GA S ORDERABLES [facility] [address] [place] [address] * (ABNORMAL) COMPLETE BLOOD COUNT (08/27/2021 6:17 EST) WBC 5.73 4.00 - 10.40 K/cmm 08/27/2021 6:31 [facility] RBC 5.25 4.36 - 5.78 M/cmm 08/27/2021 6:31 [facility] Hemoglobin 16.0 13.8 - 17.3 gm/dL 08/27/2021 6:31 [facility] HCT 45.3 39.5 - 50.2 % 08/27/2021 6:31 [facility] MCV 86 81 - 95 fl 08/27/2021 6:31 [facility] MCH 30.5 27.6 - 33.0 pg 08/27/2021 6:31 [facility] MCHC 35.3 32.8 - 36.4 gm/dL 08/27/2021 6:31 [facility] RDW-CV 12.3 <14.2 % 08/27/2021 6:31 [facility] RDW-SD 39.0 <46.0 fl 08/27/2021 6:31 [facility] PLT 199 141 - 377 K/cmm 08/27/2021 6:31 [facility] MPV 9.2(L) 9.5 - 12.7 fl 08/27/2021 6:31 [facility] Blood VENOUS BLOOD / Unknown Venipuncture / Unknown 08/27/2021 6:17 EST 08/27/2021 6:21 EST Susie Calvo MD HEMATOLOGY & PF4 ORD ERABLES [facility] [address] [place] [address] * HEPARIN LEVEL - UNFRACTIONATED HEPARIN (08/27/2021 6:17 EST) Heparin Level-UFH 0.55 Therapeutic Range: 0.30 - 0.70 IU/mL 08/27/2021 6:44 EST [facility] Comment:Unfractionated hepar in therapeutic range = 0.3-0.7 IU/ml - This test is not intended for monitoring direct Xa inhibitors, direct thrombin inhibitors, or fondaparinux.- Exogenous ATIII is NOT supplied in this assay. For unexpected or persistently low levels, consider measuring patient's ATIII level. Results will be overestimated in the presence of direct Xa inhibitors (rivaroxaban, apixaban, edoxaban). Blood VENOUS BLOOD / Unknown Venipuncture / Unknown 08/27/2021 6:17 EST 08/27/2021 6:20 EST Susie Calvo MD HEMATOLOGY & PF4 ORD ERABLES [facility] [address] [place] [address] * LIPID PROFILE (INCLUDES CHOLESTEROL, TRIGLYCERIDES, HDL, LDL) (08/27/2021 6:17 EST) Cholesterol 155 See Note mg/dL 08/27/2021 7:02 [facility] Comment: Acceptable: ?<200 mg/dL Borderline High: 200-239 mg/dL High: ?> or = 240 mg/dL HDL 49 See Note mg/dL 08/27/2021 7:02 [facility] Comment: Low: ? <40 mg/dL Normal: ??40-60 mg/dL High: ?>60 mg/dL LDL, Calculated 83 See Note mg/dL 08/27/2021 7:02 [facility] Comment: Optimal: ? <100 mg/dL Near Optimal: ?100-129 mg/dL Borderline High: 130-159 mg/dL High: ?160-189 mg/dL Very High: ? > or = 190 mg/dL Triglyceride 114 See Note mg/dL 08/27/2021 7:02 [facility] Comment: Normal: ? <150 mg/dL Borderline High: ??150 - 199 mg/dL High: ? 200 - 499 mg/dL Very High: ?> or = 500 mg/dL Chol/HDL Ratio 3.2 See Note 08/27/2021 7:02 [facility] Comment:No reference range h as been established for CHOL/HDL ratio. Non HDL Cholesterol 106 See Note mg/dL 08/27/2021 7:02 [facility] Comment: Desirable: ?<130 mg/dL Borderline High: ??130-159 mg/dL High: ? 160-189 mg/dL Very High: ?> or = 190 mg/dL Blood VENOUS BLOOD / Unknown Venipuncture / Unknown 08/27/2021 6:17 EST 08/27/2021 6:28 EST Susie Calvo MD CHEMISTRY & BLOOD GA S ORDERABLES Performing Organization Address [facility] de Phone Number [facility] [address] [place] [address] * (ABNORMAL) POCT GLUCOSE, INTERFACED (08/27/2021 5:59 EST) Glucose, POC 119(H) 70 - 100 mg/dL 08/27/2021 6:00 EST [facility] HN LAB POC COMMENT (GLUCOSE) Test Performed by Nursing Services 08/27/2021 6:00 EST [facility] Blood CAPILLARY BLOOD / Unknown 08/27/2021 5:59 EST 08/27/2021 6:00 EST Susie Calvo MD POINT OF CARE TEST O RDERABLES Performing Organization Address [facility] Co de Phone Number [facility] [address] [place] [address] * (ABNORMAL) POCT GLUCOSE, INTERFACED (08/27/2021 0:20 EST) Glucose, POC 113(H) 70 - 100 mg/dL 08/27/2021 0:21 EST [facility] HN LAB POC COMMENT (GLUCOSE) Test Performed by Nursing Services 08/27/2021 0:21 EST [facility] Blood CAPILLARY BLOOD / Unknown 08/27/2021 0:20 EST 08/27/2021 0:21 EST Markel Elder MD POINT OF CARE TEST ORDERABLES Performing Organization Address [facility] Co de Phone Number [facility] [address] [place] [address] * (ABNORMAL) TROPONIN I (08/27/2021 0:14 EST) Pathologist [facility] Troponin I (ng/mL) 1.210(H) <0.034 ng/mL 08/27/2021 1:23 EST [facility] Blood VENOUS BLOOD / Unknown Venipuncture / Unknown 08/27/2021 0:14 EST 08/27/2021 0:45 EST Narrative [facility] - 08/27/2021 1:23 EST The results of this assay can be falsely lowered due to the consumption of Biotin. Susie Calvo MD CHEMISTRY & BLOOD GA S ORDERABLES Performing Organization Address [facility] Co de Phone Number [facility] [address] [place] [address] * (ABNORMAL) POCT GLUCOSE, INTERFACED (08/26/2021 21:36 EST) Glucose, POC 120(H) 70 - 100 mg/dL 08/26/2021 21:37 EST [facility] HN LAB POC COMMENT (GLUCOSE) Test Performed by Nursing Services 08/26/2021 21:37 EST [facility] Blood CAPILLARY BLOOD / Unknown 08/26/2021 21:36 EST 08/26/2021 21:36 EST Markel Elder MD POINT OF CARE TEST ORDERABLES Performing Organization Address [facility] Co de Phone Number [facility] [address] [place] [address] * HEPARIN LEVEL - UNFRACTIONATED HEPARIN (08/26/2021 19:41 EST) Pathologist [facility] Heparin Level-UFH 0.54 Therapeutic Range: 0.30 - 0.70 IU/mL 08/26/2021 20:08 EST [facility] Comment:Unfractionated hepar in therapeutic range = 0.3-0.7 IU/ml - This test is not intended for monitoring direct Xa inhibitors, direct thrombin inhibitors, or fondaparinux.- Exogenous ATIII is NOT supplied in this assay. For unexpected or persistently low levels, consider measuring patient's ATIII level. Results will be overestimated in the presence of direct Xa inhibitors (rivaroxaban, apixaban, edoxaban). Blood VENOUS BLOOD / Unknown Venipuncture / Unknown 08/26/2021 19:41 EST 08/26/2021 19:43 EST Markel Elder MD HEMATOLOGY & PF4 OR DERABLES Performing Organization Address [facility] Co de Phone Number [facility] [address] [place] [address] * POCT GLUCOSE, INTERFACED (08/26/2021 18:32 EST) Glucose, POC 99 70 - 100 mg/dL 08/26/2021 18:38 EST [facility] HN LAB POC COMMENT (GLUCOSE) Test Performed by Nursing Services 08/26/2021 18:38 EST [facility] Blood CAPILLARY BLOOD / Unknown 08/26/2021 18:32 EST 08/26/2021 18:38 EST Susie Calvo MD POINT OF CARE TEST O RDERABLES Performing Organization Address [facility]/ZIP Co de Phone Number [facility] [address] [place] [address] * EKG 12-LEAD (08/26/2021 17:34 EST) 08/26/2021 17:3 4 EST Narrative [facility] E[facility] - 09/07/2021 14:43 EST ? [facility] ? Test Date: ?2021-08-26 Pat Name: ? RALPH GARNICA ?Department: ?? [address] ? Room: ? [id number] Gender: ? Male ? 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 [id number] : ?1950 ? Requested By: RONALD ORR Order Number: [id number] ? Reading MD: ?? JUANY FARFAN MD ? Measurements Intervals ?[place] ? Rate: ? 65 ? P: ?58 NH: ? 179 ?QRS: ?-23 QRSD: ? 166 ?T: ?2 QT: ? 422 ? QTc: ?440 ? Interpretive Statements SINUS RHYTHM WITH SINUS ARRHYTHMIA BORDERLINE LEFT AXIS DEVIATION RIGHT BUNDLE BRANCH BLOCK MODERATE T-WAVE ABNORMALITY, CONSIDER ANTERIOR ISCHEMIA I reviewed the tracing and have either agreed or edited the findings in this report. Electronically Signed On 09-07-2021 14:43:39 EST by JUANY FARFAN MD. Procedure Note Juany Farfan MD - 09/07/2021 [facility] Test Date: 2021-08-26 Pat Name: RALPH GLENBROOK Department: [place] [address] Room: [facility] Gender: Male Dental Practitioner: [id number] : 1950 Requested By: RONALD ORR Order Number: [id number] Reading MD: JUANY FARFAN MD Measurements Intervals [place] Rate: 65 P: 58 NH: 179 QRS: -23 QRSD: 166 T: 2 QT: 422 QTc: 440 Interpretive Statements SINUS RHYTHM WITH SINUS ARRHYTHMIA BORDERLINE LEFT AXIS DEVIATION RIGHT BUNDLE BRANCH BLOCK MODERATE T-WAVE ABNORMALITY, CONSIDER ANTERIOR ISCHEMIA I reviewed the tracing and have either agreed or edited the findings inthis report. Electronically Signed On 09-07-2021 14:43:39 EST by JUANY FRANCO. Susie Calvo MD CARDIAC ECG ORDERABL ES [facility] E[facility] * COMPLETE BLOOD COUNT (08/26/2021 17:18 EST) Pathologist [facility] WBC 5.54 4.00 - 10.40 K/cmm 08/26/2021 17:49 [facility] RBC 5.11 4.36 - 5.78 M/cmm 08/26/2021 17:49 [facility] Hemoglobin 15.3 13.8 - 17.3 gm/dL 08/26/2021 17:49 [facility] HCT 44.5 39.5 - 50.2 % 08/26/2021 17:49 [facility] MCV 87 81 - 95 fl 08/26/2021 17:49 [facility] MCH 29.9 27.6 - 33.0 pg 08/26/2021 17:49 [facility] MCHC 34.4 32.8 - 36.4 gm/dL 08/26/2021 17:49 [facility] RDW-CV 12.2 <14.2 % 08/26/2021 17:49 [facility] RDW-SD 39.4 <46.0 fl 08/26/2021 17:49 [facility] PLT 215 141 - 377 K/cmm 08/26/2021 17:49 [facility] MPV 9.6 9.5 - 12.7 fl 08/26/2021 17:49 [facility] Blood VENOUS BLOOD / Unknown Venipuncture / Unknown 08/26/2021 17:18 EST 08/26/2021 17:24 EST Susie Calvo MD HEMATOLOGY & PF4 ORD ERABLES [facility] [address] [place] [address] * (ABNORMAL) TROPONIN I (08/26/2021 17:18 EST) Troponin I (ng/mL) 0.773(H) <0.034 ng/mL 08/26/2021 18:09 [facility] Blood VENOUS BLOOD / Unknown Venipuncture / Unknown 08/26/2021 17:18 EST 08/26/2021 17:24 EST Narrative [facility] - 08/26/2021 18:09 EST The results of this assay can be falsely lowered due to the consumption of Biotin. Susie Calvo MD CHEMISTRY & BLOOD GA S ORDERABLES [facility] [address] [place] [address] documented in this encounter Visit Diagnoses Diagnosis NSTEMI (non-ST elevated myocardial infarction) (HCC-CMS) Acute myocardial infarction, subendocardial infarction, episode of care unspecified NSTEMI (non-ST elevated myocardial infarction) (HCC-CMS) Acute myocardial infarction, subendocardial infarction, episode of care unspecified NSTEMI (non-ST elevated myocardial infarction) ([facility]-CMS) Acute myocardial infarction, subendocardial infarction, episode of care unspecified Paroxysmal atrial fibrillation ([facility]-CMS)- Primary Atrial fibrillation Paroxysmal atrial fibrillation ([facility]-CMS) Atrial fibrillation documented in this encounter Admitting Diagnoses Diagnosis NSTEMI (non-ST elevated myocardial infarction) ([facility]-CMS) Acute myocardial infarction, subendocardial infarction, episode of care unspecified documented in this encounter Administered Medications Inactive Administered Medications - up to 3 most recent administrations Medication Order MAR Action Action Date Dose Rate Site aspirin chewable tablet 81 mg 81 mg, oral, DAILY, First dose on Tue08/27/21 at 0900, Until Discontinued, Routine Given 08/27/2021 8:21 EST 81 mg atorvastatin (LIPITOR) tablet 80 mg 80 mg, oral, EVERY EVENING, First dose (after last modification) on Tue08/27/21 at 1700, Until Discontinued, Routine Given 08/27/2021 17:53 EST 80 mg carvediloL (COREG) tablet 6.25 mg 6.25 mg, oral, 2 TIMES DAILY WITH BREAKFAST & DINNER, First dose on Tue08/26/21 at 1800, Until Discontinued, Routine Given 08/27/2021 17:53 EST 6.25 mg Given 08/27/2021 8:22 EST 6.25 mg Given 08/26/2021 18:22 EST 6.25 mg dextrose 50 % solution 12.5 g 12.5 g (25 mL), intravenous, PRN, Starting on Tue08/26/21 at 1734, Until Tue08/27/21 at 2124, Low Blood Sugar, Routine fentaNYL citrate (PF) injection PRN, Starting on Tue08/27/21 at 1217, Until Tue08/27/21 at 1305, Routine, Intraprocedure Given 08/27/2021 12:17 EST 50 mcg glucagon injection 1 mg 1 mg, intramuscular, PRN, Starting on Tue08/26/21 at 1734, Until Tue08/27/21 at 2124, Other, Low blood sugar, Routine heparin 1,000 unit/mL injection PRN, Starting on Tue08/27/21 at 1238, Until Tue08/27/21 at 1305, Routine, Intraprocedure Given 08/27/2021 12:38 EST 6,000 Units insulin aspart U-100 (NOVOLOG FLEXPEN) injection subcutaneous, EVERY 6 HOURS, First dose on Tue08/26/21 at 1800, Until Discontinued, Routine, Indications: SUPPLEMENTAL INSULIN iopamidoL (ISOVUE-370) injection PRN, Starting on Tue08/27/21 at 1303, Until Tue08/27/21 at 1305, Routine, Intraprocedure Given 08/27/2021 13:03 EST 120 mL midazolam (PF) (VERSED) injection PRN, Starting on Tue08/27/21 at 1217, Until Tue08/27/21 at 1305, Routine, Intraprocedure Given 08/27/2021 12:17 EST 1 mg perflutren lipid microspheres (DEFINITY) 0.165 mg in sodium chloride (PF) 1 mL 0.165 mg, intravenous, Once (Without Time Specified), 1 dose, Starting on Tue08/27/21 at 1603, Until Tue08/27/21 at 2124, Routine sodium chloride 0.9 % (flush) flush 5 mL 5 mL, intravenous, EVERY 8 HOURS, First dose on Tue08/26/21 at 1700, Until Discontinued, Routine, Release Given 08/27/2021 16:36 EST 5 mL Given 08/26/2021 16:53 EST 5 mL documented in this encounter Discontinued Medications Medication Sig Discontinue Reason Start Date End Da te losartan (COZAAR) 50 mg tabletIndications:hyperte nsion Take 50 mg by mouth daily. 08/27/2021 amLODIPine (NORVASC) 5 mg tabletIndications:hyperte nsion Take 5 mg by mouth daily. 08/27/2021 documented as of this encounter Active and Recently Administered Medications Times are shown in EST. Scheduled Medication Order 08/25/2021 08/26/2021 08/27/2021 aspirin chewable tablet 81 mg 81 mg, oral, DAILY, First dose on Tue08/27/21 at 0900, Until Discontinued, Routine 0821 (Given - Provid er: Marion Chun RN)1204 ([facility] Hold - Provider: Automatic Transfer Provider Hn - Reason: Patient off unit)1331 ([facility] Unhold - Provider: Automatic Transfer Provider Hn) atorvastatin (LIPITOR) tablet 80 mg 80 mg, oral, EVERY EVENING, First dose (after last modification) on Tue08/27/21 at 1700, Until Discontinued, Routine 1204 ([facility] Hold - Provider: Automatic Transfer Provider Hn - Reason: Patient off unit)1331 ([facility] Unhold - Provider: Automatic Transfer Provider Hn)1753 (Given - Provider: Maricarmen West RN) carvediloL (COREG) tablet 6.25 mg 6.25 mg, oral, 2 TIMES DAILY WITH BREAKFAST & DINNER, First dose on Tue08/26/21 at 1800, Until Discontinued, Routine 1822 (Given - Provider: Fabian Ho RN - Comment: 141/82) 0822 (Given - Provider: Marion Chun RN)1204 ([facility] Hold - Provider: Automatic Transfer Provider Hn - Reason: Patient off unit)1331 ([facility] Unhold - Provider: Automatic Transfer Provider Hn)1753 (Given - Provider: Maricarmen West RN) insulin aspart U-100 (NOVOLOG FLEXPEN) injection subcutaneous, EVERY 6 HOURS, First dose on Tue08/26/21 at 1800, Until Discontinued, Routine, Indications: SUPPLEMENTAL INSULIN 1858 (Not Given - Provider: Fabian Ho RN - Reason: Order parameters not met) 0026 (Not Given - Provider: Nayana Rob RN - Reason: Order parameters not met)0615 (Not Given - Provider: Nayana Rob RN - Reason: Order parameters not met)1204 ([facility] Hold - Provider: Automatic Transfer Provider Hn - Reason: Patient off unit)1331 ([facility] Unhold - Provider: Automatic Transfer Provider Hn)1456 (Not Given - Provider: Maricarmen West RN - Reason: Order parameters not met - Comment: [phone] (Canceled Entry - Provider: Batch Job User Admin - Comment: Automatically canceled at discontinue of medication order) perflutren lipid microspheres (DEFINITY) 0.165 mg in sodium chloride (PF) 1 mL 0.165 mg, intravenous, Once (Without Time Specified), 1 dose, Starting on Tonya 08/27/21 at 1603, Until Tonya 08/27/21 at 2124, Routine sodium chloride 0.9 % (flush) flush 5 mL 5 mL, intravenous, EVERY 8 HOURS, First dose on Tue08/26/21 at 1700, Until Discontinued, Routine, Release 1653 (Given - Provider: Fabian Ho, RN)2344 (Completed - Provider: Nayana Rob, ANDRE) 0817 (Not Given - Provider: Marion Chun, ANDRE - Reason: Other - Comment: heparin gtt infusing)1204 ([facility] Hold - Provider: Automatic Transfer Provider Hn - Reason: Patient off unit)1331 ([facility] Unhold - Provider: Automatic Transfer Provider Hn)1636 (Given - Provider: Maricarmen West, ANDRE) sodium chloride 0.9 % BOLUS 500 mL (COMPLETED) 500 mL, intravenous, NOW X1, 1 dose, On Tonya 08/27/21 at 1500, Routine 1455 (New Bag - Prov ider: Maricarmen West, ANDRE) Continuous Medication Order 08/25/2021 08/26/2021 08/27/2021 heparin in 1/2 NS 25,000 unit/250 mL infusion (CANCELED) 15 Units/kg/hr ? 85.3 kg Adjusted weight (12.795 mL/hr, rounded to 13 mL/hr), intravenous, CONTINUOUS, Starting on Tue08/26/21 at 1700, Until Tonya 08/27/21 at 1311, STAT 1657 (New Bag - Provider: Fabian Ho, RN) 0948 (New Bag - Provider: Maricarmen West, RN)1206 (Paused - Provider: Amalia Riggs, ANDRE) PRN Medication Order 08/25/2021 08/26/2021 08/27/2021 acetaminophen (TYLENOL) tablet 650 mg 650 mg, oral, EVERY 4 HOURS PRN, Starting on Tue08/26/21 at 1635, Until Tonya 08/27/21 at 2124, Pain, Routine, Release 1204 (NOV Hold - Pro vider: Automatic Transfer Provider Hn - Reason: Patient off unit)1331 ([facility] Unhold - Provider: Automatic Transfer Provider Hn) dextrose 50 % solution 12.5 g 12.5 g (25 mL), intravenous, PRN, Starting on Tue08/26/21 at 1734, Until Tonya 08/27/21 at 2124, Low Blood Sugar, Routine 1204 (NOV Hold - Pro vider: Automatic Transfer Provider Hn - Reason: Patient off unit)1331 ([facility] Unhold - Provider: Automatic Transfer Provider Hn) fentaNYL citrate (PF) injection (CANCELED) PRN, Starting on Tonya 08/27/21 at 1217, Until Tonya 08/27/21 at 1305, Routine, Intraprocedure 1217 (Given - Provid er: Talya Longoria RN) glucagon injection 1 mg 1 mg, intramuscular, PRN, Starting on Tue08/26/21 at 1734, Until Tonya 08/27/21 at 2124, Other, Low blood sugar, Routine 1204 (NOV Hold - Pro vider: Automatic Transfer Provider Hn - Reason: Patient off unit)1331 (N[facility] Unhold - Provider: Automatic Transfer Provider Hn) heparin 1,000 unit/mL injection (CANCELED) PRN, Starting on Tonya 08/27/21 at 1238, Until Tonya 08/27/21 at 1305, Routine, Intraprocedure 1238 (Given - Provid er: Gena Oliver RN) iopamidoL (ISOVUE-370) injection (CANCELED) PRN, Starting on Tonya 08/27/21 at 1303, Until Tonya 08/27/21 at 1305, Routine, Intraprocedure 1303 (Given - Provid er: Jess Franco MD) midazolam (PF) (VERSED) injection (CANCELED) PRN, Starting on Tonya 08/27/21 at 1217, Until Tonya 08/27/21 at 1305, Routine, Intraprocedure 1217 (Given - Provid er: Talya Longoria RN) documented in this encounter Orders Medications Ordered That Quirino ht Not Have Been Administered Count Last Ordered Date First Ordered Date fentaNYL citrate (PF) 50 mcg/mL injection 1 08/27/2021 heparin 1,000 unit/mL injection 1 lidocaine 20 mg/mL (2 %) injection 1 2020 midazolam (PF) (VERSED) 1 mg/mL injection 1 08/27/2021 nitroglycerin 100 mcg/mL syringe 1 08/27/20 perflutren lipid microsphere s (DEFINITY) 0.165 mg in sodium chloride (PF) 1 mL 1 08/27/2021 sodium chloride 0.9 % (NS) infusion 1 08/27 sodium chloride 0.9 % BOLUS 500 mL 1 2020 verapamil (ISOPTIN) 2.5 mg/mL injection 1 1 10/28/2020 acetaminophen (TYLENOL) tablet 650 mg 1 aspirin chewable tablet 81 mg 2 08/26/2021 atorvastatin (LIPITOR) tablet 40 mg 1 08/26 atorvastatin (LIPITOR) tablet 80 mg 1 08/26 carvediloL (COREG) tablet 6.25 mg 1 dextrose 50 % solution 12.5 g 1 08/26/2021 glucagon injection 1 mg 1 08/26/2021 heparin 1,000 unit/mL inject ion 3,000 Units 1 08/26/2021 heparin 1,000 unit/mL inject ion 6,000 Units 1 08/26/2021 heparin in / NS 25,000 uni t/250 mL infusion 1 08/26/2021 insulin aspart U-100 (NOVOLO G FLEXPEN) injection 1 08/26/2021 sodium chloride 0.9 % (flush) flush 5 mL 1 08/26/2021 Diet Count Last Ordered Date First Orde red Date DISCHARGE DIET 3 08/27/2021 Nursing Count Last Ordered Date First Orde red Date ACTIVITY INSTRUCTIONS 2 08/27/2021 BATHING INSTRUCTIONS 1 08/27/2021 PATIENT AT LOW RISK FOR VTE: RISK OF PHARMACOLOGIC PROPHYLAXIS OUTWEIG 1 08/27/2021 WOUND CARE INSTRUCTIONS 2 08/27/2021 MEASURE WEIGHT 1 08/26/2021 VTE PHARMACOLOGIC PROPHYLAXI S CURRENTLY ORDERED OR ON ALTERNATIVE THER 1 08/26/2021 Admission Count Last Ordered Date First Orde red Date ADMIT TO INPATIENT 1 08/27/2021 OUTPATIENT WITH OBSERVATION SERVICES (INITIATE OBSERVATION STATUS) 2 08/27/2021 08/26/2021 Discharge Count Last Ordered Date First Orde red Date DISCHARGE PATIENT 1 08/27/2021 Legal Count Last Ordered Date First Orde red Date MISCELLANEOUS DISCHARGE INSTRUCTIONS 5 08/06 Case Request Count Last Ordered Date First Orde red Date CASE REQUEST TODDLER GUIDE 1 08/27/2021 documented in this encounter Care Teams Doper Relationship Specialty Start Date End Date Jessie Velasco [address] [place] [address] PCP - General Internal Medicine - Primary Care 08/26/21 documented as of this encounter
--- OUTSIDE RECORDS SUMMARY | 2024-03-27 17:27 | XMS_ITS | Encounter Summary ---
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 Name Role Phone Jessie Velacso Primary Care Provider [phone] Malini Euceda MD Unavailable [phone] Reason for Referral * Radiology Services (Routine/Next Available) - Authorization Not Required Specialty Diagnoses / Procedures Referred By Contac t Referred To Contact Diagnoses Gross hematuria Procedures CT UROGRAM CT ABDOMEN PELVIS W WO CONTRAST Jessie Velasco [address] [place] [address] [facility] Referral ID Status Reason Start Date Expiration Date Visits Requested Visits Authorized [id number] Authorization Not Required 12/28/2021 1 1 Reason for Visit * Radiology Services (Routine/Next Available) - Authorization Not Required Specialty Diagnoses / Procedures Referred By Contac t Referred To Contact Diagnoses Gross hematuria Procedures CT UROGRAM CT ABDOMEN PELVIS W WO CONTRAST Jessie Velasco [address] [place] [address] [facility] Referral ID Status Reason Start Date Expiration Date Visits Requested Visits Authorized [id number] Authorization Not Required 12/28/2021 1 1 Encounter Details Date Type Department Care Team (Latest Contact Info) Description 01/11/2022 8:52 EDT - 01/11/2022 23:59 EDT Hospital Encounter [facility] CT Scan [address] [place] [address] Gross hematuria Discharge Disposition: Home or Self [...] Date End Date atorvastatin (LIPITOR) 40 mg tabletIndications:hyper lipidemia Take 1 Tablet by mouth every evening. 90 Tablet 3 09/25/2021 metFORMIN (GLUCOPHAGE) 1,000 mg tabletIndications:type 2 diabetes mellitus Take 1 Tablet by mouth every morning. metFORMIN (GLUCOPHAGE) 1,000 mg tabletIndications:type 2 diabetes mellitus Take 0.5 Tablets by mouth every evening. ONETOUCH ULTRA BLUE TEST STRIP test strips 06/02/2020 ONETOUCH ULTRASOFT LANCETS 06/02/2020 TRULICITY 0.75 mg/0.5 mL subcutaneous penIndications:type 2 diabetes mellitus Inject 0.75 mg into the skin once a week. On Sundays06/12/2020 apixaban (ELIQUIS) 5 mg tabletIndications:Atria l flutter, unspecified type (HCC-CMS) Take 1 Tablet by mouth 2 times daily. 180 Tablet 3 12/28/2021 03/25/2022 aspirin chewable 81 mg tablet Take 81 mg by mouth daily. 02/10/2022 carvediloL (COREG) 6.25 mg tablet Take 1 Tablet by mouth 2 times daily with breakfast and dinner. 180 Tablet 3 09/25/2021 05/31/2022 documented as of this encounter Discharge Disposition Disposition Code Departure Means Destination Home or Self Care documented in this encounter Plan of Treatment Upcoming Encounters Date Type Department Care Team (Late st Contact Info) Description 04/02/2024 11:15 EDT Telemedicine [facility] Urology - [address] [phone] David Bhatt DO 111 [facility], [facility] 5 [place] [phone] 07/12/2024 12:30 EST Hospital Encounter [place] [facility] 111 [place], [place] [id number] Rodrigo Noyola MD [address] [place] [address] 1 [place] [phone] Paroxysmal atrial fibrillation (HCC-CMS) 07/12/2024 12:30 EST - 07/12/2024 17:00 EST Surgery [place] [facility] EP Lab 111 [place], [place] [id number] Rodrigo Noyola MD 111 [facility], [facility] 1 [place] [address] Bryce Woo [[id number] (CPT??)] 07/23/2024 11:00 EST Office Visit [facility] Cardiology Clinic [address] [place] [address] Malini Euceda MD [address] [address] documented as of this encounter Procedures Procedure Name Priority Date/Time Associated Diagnosis Comments CT UROGRAM Routine 01/11/2022 9:39 EDT Gross hematuria documented in this encounter Results * CT UROGRAM (01/11/2022 9:39 EDT) Anatomical Region Laterality Modality Body Computed Tomogra phy 01/11/2022 10:1 3 EDT Impressions 01/11/2022 10:13 EDT 1. No urolithiasis, solid renal mass, focal urothelial lesion. 2. Colonic diverticulosis. 3. Enlarged prostate. Narrative 01/11/2022 10:[address] UROGRAM ??01/11/2022 9:00 AM Signs and Symptoms/Comments: ?? Gross hematuria, notation on order CT KUB for hematuria Technique: CT of the abdomen and pelvis was performed with and without intravenous contrast following the CT urogram protocol; coronal and sagittal multiplanar reconstructions generated. Comparison: None. FINDINGS: Lower chest: Lung bases clear. Hepatobiliary: Small hepatic cysts. Gallbladder normal in appearance. No biliary ductal dilatation. Spleen, pancreas, adrenal glands: No abnormalities. Kidneys, ureters, bladder: The kidneys are normal in position and morphology. There is no hydronephrosis or urolithiasis. After the administration of contrast, the kidneys enhance and excrete symmetrically. There are small cysts in the upper pole the right kidney and the lower pole of the left kidney. A few additional tiny renal cortical hypodensities lesions are too small to characterize, but are likely to be benign. No definite solid enhancing mass is detected. No focal urothelial lesion is detected. Reproductive: Prostate mildly enlarged and heterogeneous. Bowel: No bowel obstruction or focal bowel wall thickening. Colonic diverticulosis without evidence of acute diverticulitis. Peritoneal cavity / Subperitoneal space: No free fluid. No free intraperitoneal air. Lymphovascular: Aorta catheter sclerosis. No aneurysm. No lymphadenopathy. Abdominal wall: Intact. Musculoskeletal: No acute osseous abnormality. Procedure Note Mike Grimaldo MD - 01/11/2022 CT UROGRAM 01/11/2022 9:00 AM Signs and Symptoms/Comments: Gross hematuria, notation on order CT KUB for hematuria Technique: CT of the abdomen and pelvis was performed with and withoutintravenous contrast following the CT urogram protocol; coronal andsagittal multiplanar reconstructions generated. Comparison: None. FINDINGS: Lower chest: Lung bases clear. Hepatobiliary: Small hepatic cysts. Gallbladder normal in appearance. Nobiliary ductal dilatation. Spleen, pancreas, adrenal glands: No abnormalities. Kidneys, ureters, bladder: The kidneys are normal in position andmorphology. There is no hydronephrosis or urolithiasis. After theadministration of contrast, the kidneys enhance and excrete symmetrically.There are small cysts in the upper pole the right kidney and the lowerpole of the left kidney. A few additional tiny renal corticalhypodensities lesions are too small to characterize, but are likely to bebenign. No definite solid enhancing mass is detected. No focal urotheliallesion is detected. Reproductive: Prostate mildly enlarged and heterogeneous. Bowel: No bowel obstruction or focal bowel wall thickening. Colonicdiverticulosis without evidence of acute diverticulitis. Peritoneal cavity / Subperitoneal space: No free fluid. No freeintraperitoneal air. Lymphovascular: Aorta catheter sclerosis. No aneurysm. Nolymphadenopathy. Abdominal wall: Intact. Musculoskeletal: No acute osseous abnormality. IMPRESSION 1. No urolithiasis, solid renal mass, focal urothelial lesion. 2. Colonic diverticulosis. 3. Enlarged prostate. Jessie Velasco [facility] CT ORDERABLES documented in this encounter Visit Diagnoses Diagnosis Gross hematuria Paroxysmal atrial fibrillation (HCC-CMS)- Primary Atrial fibrillation Paroxysmal atrial fibrillation (HCC-CMS) Atrial fibrillation documented in this encounter Administered Medications Inactive Administered Medications - up to 3 most recent administrations Medication Order MAR Action Action Date Dose Rate Site iohexoL (OMNIPAQUE 350) solution 100 mL 100 mL, intravenous, Once in imaging, 1 dose, Starting on Tue01/11/22 at 0852, Until Tue01/11/22 at 0939, Routine, Imaging Protocol Orders Given 01/11/2022 9:39 EDT 100 mL documented in this encounter Orders Medications Ordered That Quirino ht Not Have Been Administered Count Last Ordered Date First Ordered Date iohexoL (OMNIPAQUE 350) solution 100 mL 1 0 01/11/2022 documented in this encounter Care Teams Overlock Sewing Machine Operator Relationship Specialty Start Date End Date Jessie Velasco [address] [place] [address] PCP - General Internal Medicine - Primary Care 08/26/21 Malini Euceda MD [address] [place] [address]- [address] [place] [phone] Consulting Clinician Cardiovascular Disease 11/12/21 documented as of this encounter
--- OUTSIDE RECORDS SUMMARY | 2024-03-27 17:27 | XMS_ITS | Encounter Summary ---
Author Organization [facility] Address [address] [place] [address] Care Team Providers Care Outside Barrel Lathe Operator Name Role Phone KristaJessie Frank Primary Care Provider Malini Euceda MD Unavailable [phone] Encounter Details Date Type Department Care Team (Late st Contact Info) Description 06/12/2022 Documentation Visit [facility] UROLOGY [address] [place], [place] [address] Forest Romo MD 111 [place] [address] Social History Tobacco Use Types [...] 12 hours for 7 days. 14 Tablet 06/12/2022 06/19/2022 documented in this encounter Progress Notes * Forest Romo MD - 06/12/2022 2087 EDT Patient call into today at 14:50. Regarding urine culture. He is having urinary symptoms. Reviewed cultures. Urine Culture 06/10/2022: 10, 000 to 100,000 CFU/ml Usual urogenital jeremías. Ordered Bactrim given symptoms and culture data. Lab unable to identify organisms further. FOREST ROMO MD 06/13/2022 11:12 documented in this encounter Plan of Treatment Upcoming Encounters Date Type Department Care Team (Late st Contact Info) Description 04/02/2024 11:15 EDT Telemedicine [facility] Urology - [place] [phone] David Bhatt, DO 111 [facility], Level [address] [place] [phone] 07/12/2024 12:30 EST Hospital Encounter [place] [address] EP Lab [address] [place], [place] [address] Rodrigo Noyola MD [address] [phone] Paroxysmal atrial fibrillation ([facility]) 07/12/2024 12:30 EST - 07/12/2024 17:00 EST Surgery [place] [address] EP Lab [address] [place], [place] [id number] Rodrigo Noyola MD [address] [place] [phone] Albcj Woo [[id number] (CPT??)] 07/23/2024 11:00 EST Office Visit [facility] Cardiology Clinic [address] [place] [address] Malini Euceda MD [address] [place] [phone] documented as of this encounter Visit Diagnoses Not on filedocumented in this encounter Care Teams Outside Barrel Lathe Operator Relationship Specialty Start Date End Date Jessie Velasco [address] [place] [address] [place], [place] [address] PCP - General Internal Medicine - Primary Care 08/26/21 Malini Euceda MD 130 [facility]- [address] [phone] Consulting Clinician Cardiovascular Disease 11/12/21 documented as of this encounter
--- OUTSIDE RECORDS SUMMARY | 2024-03-27 17:27 | XMS_ITS | Encounter Summary ---
Author Organization [facility] Address [address] [place] [address] Care Team Providers Care Clay Miller Name Role Phone Jsesie Velasco Primary Care Provider [phone] Malini Euceda MD Unavailable [phone] Reason for Referral * Cardiology (Routine/Next Available) - Closed Specialty Diagnoses / Procedures Referred By [facility] Referred To Contact Diagnoses Heart palpitations Procedures CARDIAC EVENT MONITOR Malini Euceda MD [address] [address] [facility] Referral ID Status Reason Start Date Expiration Date Visits Re quested Visits Authorized [id number] Closed 11/13/2021 1 1 Reason for Visit * Reason Comments Hyperlipidemia Hypertension Encounter Details Date Type Department Care Team (Late st Contact Info) Description 11/13/2021 11:30 EST Office Visit [facility] Cardiology Clinic [address] [place], [place] [address] Malini Euceda MD [address] [address] Heart palpitations (Primary Dx); Non-ST elevation myocardial infarction (NSTEMI) ([facility]) ([facility]) Social History Tobacco Use Types Packs/Day Years [...] Sign Reading Time Taken Comments Blood Pressure 106/66 11/13/2021 1130 EST Pulse 54 11/13/2021 1130 EST Temperature - - Respiratory Rate - - Oxygen Saturation 96% 11/13/2021 1130 EST Inhaled Oxygen Concentration - - Weight 102.5 kg (226 lb) 11/13/2021 1130 EST Height 180.3 cm (5' 10.98) 11/13/2021 1130 EST Body Mass Index 31.54 11/13/2021 1130 EST documented in this encounter Functional Status [...] Progress Notes * Malini Euceda MD - 11/13/2021 1130 EST [facility] Cardiology Office Visit Subjective: Chief Complaint(s): Hyperlipidemia and Hypertension HPI: 71-year-old man with a history of type 2 diabetes, hypertension, hyperlipidemia with recent NSTEMI (08/2021) who presents for routine care. Since our last visit, he had continued to improve. He was seen by Dr. Franco who noted an irregular heart beat and recommended outpatient monitoring. He does not some occassional skipped beats but otherwise no significant symptoms/syncope. He was been participating in cardiac rehab. Goes on walks on non-rehab days. notes his energy and color is improving. Have been working diligently to improve his diet. Has not lost weight. Cardiac History He was admitted on 08-26-2021 [...] Outpatient Medications Marked as Taking for the 11/13/21 encounter (Office Visit) with Delon Euceda MD [...] and leg swelling. Objective: Examination: Vitals: BP 106/66 (BP Cuff Location: Right arm, BP Patient Position: Sitting, BP Cuff Sizes: Adult, regular) Pulse 54 Ht 180.3 cm (70.98) Wt (!) 102.5 kg (226 lb) SpO2 96% BMI 31.54 kg/m?? Body mass index is 31.54 kg/m??. Physical Exam Constitutional: Appearance: Normal appearance. [...] component. -We will treat with aspirin-Plavix for 12 months -Continue Lipitor 40 mg, LDL at 83 slightly above goal of less than 70. Lipid recheck today. -Previously reviewed Mediterranean diet Irregular heartbeat: Noted by Dr. Franco and again by myself on exam. Has been told years ago that he has early heartbeats, but ourt of an abundance of caution will order Ziopatch to ensure no development of atrial fibrillation. - Ziopatch for 14 days Moderate aortic stenosis: New diagnosis for him. No symptoms. Will need repeat echocardiogram 08/2022. Return to clinic in 3 months I spent a total of 30 minutes on the date of this encounter as indicated in the above progress note. Malini Euceda MD documented in this encounter Plan of Treatment Upcoming Encounters Date Type Department Care Team (Late st Contact Info) Description 04/02/2024 11:15 EDT Telemedicine [facility] Urology - [address] [phone] David Bhatt, 111 [facility], Level 5 [place] [phone] 07/12/2024 12:30 EST Hospital Encounter [place] [address] EP Lab [address] [place], [place] [phone] Rodrigo Noyola MD 111 [facility], Level 1 [place] [address] Paroxysmal atrial fibrillation (HCC-CMS) 07/12/2024 12:30 EST - 07/12/2024 17:00 EST Surgery [place] [address] [place] [address] Rodrigo Noyola MD [address] [phone] [place] A-Fib [[id number] (CPT??)] 07/23/2024 11:00 EST Office Visit [facility] Cardiology Clinic [address] [place], [place] [phone] Malini Euceda MD [address] [phone] Scheduled Orders Name Type Priority Associated Diagnoses Orde r Schedule CARDIAC EVENT MONITOR Cardiac Services Routine Heart palpitations Expected: 11/13/2021 (Approximate), Expires: 11/14/2023 documented as of this encounter Results * LIPID PROFILE (INCLUDES CHOLESTEROL, TRIGLYCERIDES, HDL, LDL) (11/13/2021 12:29 EST) Cholesterol 117 See Note mg/dL 11/13/2021 13:03 [facility] Comment: Acceptable: ?<200 mg/dL Borderline High: 200-239 mg/dL High: ?> or = 240 mg/dL HDL 39 See Note mg/dL 11/13/2021 13:03 [facility] Comment: Low: ? <40 mg/dL Normal: ??40-60 mg/dL High: ?>60 mg/dL LDL, Calculated 61 See Note mg/dL 11/13/2021 13:03 [facility] Comment: Optimal: ? <100 mg/dL Near Optimal: ?100-129 mg/dL Borderline High: 130-159 mg/dL High: ?160-189 mg/dL Very High: ? > or = 190 mg/dL Triglyceride 85 See Note mg/dL 11/13/2021 13:03 [facility] Comment: Normal: ? <150 mg/dL Borderline High: ??150 - 199 mg/dL High: ? 200 - 499 mg/dL Very High: ?> or = 500 mg/dL Chol/HDL Ratio 3.0 See Note 11/13/2021 13:03 [facility] Comment: NOTE: Desirable Ratio = <4.1 Patient At Risk Ratio = >5.0(Males) ?>6.0(Females) Non HDL Cholesterol 78 See Note mg/dL 11/13/2021 13:03 [facility] Comment: Desirable: ?<130 mg/dL Borderline High: ??130-159 mg/dL High: ? 160-189 mg/dL Very High: ?> or = 190 mg/dL Blood VENOUS BLOOD / Unknown Venipuncture / Unknown 11/13/2021 12:29 EST 11/13/2021 12:34 EST Malini Euceda MD CHEMISTRY & BLOOD GA S ORDERABLES Performing Organization Address City/State/[facility] Co de Phone Number [facility] [address] [place] [address] documented in this encounter Visit Diagnoses Diagnosis Heart palpitations- Primary Palpitations Non-ST elevation myocardial infarction (NSTEMI) (HCC-CMS) Acute myocardial infarction, subendocardial infarction, episode of care unspecified Paroxysmal atrial fibrillation (HCC-CMS)- Primary Atrial fibrillation Paroxysmal atrial fibrillation (HCC-CMS) Atrial fibrillation documented in this encounter Care Teams Clay Miller Relationship Specialty Start Date End Date Jessie Velasco [address] [place] [address] PCP - General Internal Medicine - Primary Care 08/26/21 Malini Euceda MD [address] [place] [phone] Consulting Clinician Cardiovascular Disease 11/12/21 documented as of this encounter
--- OUTSIDE RECORDS SUMMARY | 2024-03-27 17:27 | XMS_ITS | Encounter Summary ---
Author Organization [facility] Address [address] [place] [address] Care Team Providers Care Manager Interface Name Role Phone Jessie Velasco Primary Care Provider [phone] Malini Euceda MD Unavailable [phone] Encounter Details Date Type Department Care Team (Late st Contact Info) Description 12/30/2021 Orders Only [facility] CT Scan [address] [place] [address] Dung Horn Social History Tobacco Use Types Packs/Day Years [...] Contact Info) Description 04/02/2024 11:15 EDT Telemedicine [facility] Urology - [address] [phone] David Bhatt DO 111 [facility] Level 5 [place] [phone] 07/12/2024 12:30 EST Hospital Encounter [place] [address] [place] [id number] Rodrigo Noyola MD [address] [place] [phone] Paroxysmal atrial fibrillation (HCC-CMS) 07/12/2024 12:30 EST - 07/12/2024 17:00 EST Surgery [place] [address] EP Lab [address] [place] [phone] Rdorigo Noyola MD [address] [place] [phone] [place] A-Kaira [[id number] (CPT??)] 07/23/2024 11:00 EST Office Visit [facility] Cardiology Clinic [address] [place] [address] Malini Euceda MD 111 [facility] 1 [place] [phone] documented as of this encounter Visit Diagnoses Not on filedocumented in this encounter Care Teams Manager Interface Relationship Specialty Start Date End Date Jessie Velasco [address] [place] [phone] PCP - General Internal Medicine - Primary Care 08/26/21 Malini Euceda MD 130 [facility] [address] [place] [phone] Consulting Clinician Cardiovascular Disease 11/12/21 documented as of this encounter
--- OUTSIDE RECORDS SUMMARY | 2024-03-27 17:27 | XMS_ITS | Encounter Summary ---
Author Organization [facility] Address [address] [place] [address] Care Team Providers Care Pediatric Nephrologist Name Role Phone KristaJessie Frank Primary Care Provider [phone] Malini Euceda MD Unavailable [phone] Reason for Visit * Reason Onset Date Comments Medication Management 12/30/2021 Encounter Details Date Type Department Care Team (Late st Contact Info) Description 12/30/[address] [facility] Cardiology Clinic [address] [place] [address] Nicole Macdonald, electrical prospecting supervisor Management Social History Tobacco Use Types Packs/Day [...] Telephone Encounter - Nicole Macdonald RN - 01/01/2022 0842 EDT Spoke with nurse Nix at the [facility] regarding Dr. Newman's orders for anticoaagulation. She states will relay to the patient. * Telephone Encounter - Nicole Macdonald RN - 12/30/2021 1555 EDT Message left with [facility] nurse to call back to discuss. * Telephone Encounter - Nicole Macdonald RN - 12/30/2021 1548 EDT Call from Lalita tian at [facility] regarding patient medications. ? Should be on Apixaban and Plavix. Spoke with Dr. Euceda. To dc ASA and start Apixaban 5mg po bid for dx Atrial Fib and continue [id number] po daily for s/p NSTEMI. Lalita requested a callback at [phone] documented in this encounter Plan of Treatment Upcoming Encounters Date Type Department Care Team (Late st Contact Info) Description 04/02/2024 11:15 EDT Telemedicine [facility] Urology - [address] [phone] David Bhatt DO [address] [place] [address], [facility], Level [address] [place] [phone] 07/12/2024 12:30 EST Hospital Encounter [place] [address] [place] [id number] Rodrigo Noyola MD [address] [place] [phone] Paroxysmal atrial fibrillation ([facility]) 07/12/2024 12:30 EST - 07/12/2024 17:00 EST Surgery [place] [address] EP Lab [address] [place] [phone] Rodrigo Noyola MD [address] [place] [phone] Bryce Woo [[id number] (CPT??)] 07/23/2024 11:00 EST Office Visit [facility] Cardiology Clinic [address] [place] [phone] Malini Euceda MD [address] [place] [phone] documented as of this encounter Visit Diagnoses Not on filedocumented in this encounter Care Teams Pediatric Nephrologist Relationship Specialty Start Date End Date Jessie Velasco [address] [place] [phone] PCP - General Internal Medicine - Primary Care 08/26/21 Malini Euceda MD [address] [place] [address] 21 [place] [phone] Consulting Clinician Cardiovascular Disease 11/12/21 documented as of this encounter
--- OUTSIDE RECORDS SUMMARY | 2024-03-27 17:27 | XMS_ITS | Encounter Summary ---
Author Organization [facility] Address [address] [place] [address] Care Team Providers Care Dough Machine Operator Name Role Phone Jessie Velasco Primary Care Provider [phone] Malini Euceda MD Unavailable [phone] Encounter Details Date Type Department Care Team (Late st Contact Info) Description 12/28/2021 Orders Only [facility] Cardiology Clinic [address] [place], [place] [phone] Malini Euceda MD [address] [place] [address] 1 [place] [phone] Atrial flutter, unspecified type (HCC-CMS) (HCC) (Primary Dx) Social History Tobacco [...] times daily. 180 Tablet 3 12/28/2021 03/25/2022 documented in this encounter Plan of Treatment Upcoming Encounters Date Type Department Care Team (Late st Contact Info) Description 04/02/2024 11:15 EDT Telemedicine [facility] Urology - [facility] [address] [place], [place] [phone] David Bhatt DO 111 [facility], Level 5 [place] [phone] 07/12/2024 12:30 EST Hospital Encounter [place] [id number] [facility] [address] [place], [place] [phone] Rodrigo Noyola MD 111 [facility] Level 1 [place] [phone] Paroxysmal atrial fibrillation (HCC-CMS) 07/12/2024 12:30 EST - 07/12/2024 17:00 EST Surgery [place] [id number] EP Lab [address] [place], [place] [phone] Rodrigo Noyola MD [address] [phone] Albation A-Fib [[id number] (CPT??)] 07/23/2024 11:00 EST Office Visit [facility] [address] [place] [address] Malini Euceda MD [address] [phone] documented as of this encounter Visit Diagnoses Diagnosis Atrial flutter, unspecified type (HCC-CMS)- Primary Paroxysmal atrial fibrillation (HCC-CMS)- Primary Atrial fibrillation Paroxysmal atrial fibrillation (HCC-CMS) Atrial fibrillation documented in this encounter Care Teams Dough Machine Operator Relationship Specialty Start Date End Date Jessie Velasco [address] [place], [place] [address] PCP - General Internal Medicine - Primary Care 08/26/21 Malini Euceda MD [address] [place] [address]-[address] [place] [phone] Consulting Clinician Cardiovascular Disease 11/12/21 documented as of this encounter
--- OUTSIDE RECORDS SUMMARY | 2024-03-27 17:28 | XMS_ITS | Encounter Summary ---
Author Organization [facility] Address [address] [place] [address] Care Team Providers Care Coil Winder Repair Name Role Phone David Barber MD Unavailable Unavailabl e David Barber MD Primary Care Provider Unav ailable Encounter Details Date Type Department Care Team (Late st Contact Info) Description 11/22/2017 Historical Results Only [facility] [place] [facility] [place] [address] [place] [address] Adonis Wallis, PA-C [address] [place] [address] Social History Tobacco Use Types Packs/Day Years Used Date Smoking Tobacco: Never Sex and Gender Information Value Date Recorded Sex Assigned at Not on file Gender Identity Male 08/26/2021 11:28 EST Sexual Orientation Not on file documented as of this encounter Functional Status Functional Status Response Date of Assess ment Are you deaf or do you have serious difficulty h earing? No 01/30/2014 Are you blind or do you have serious difficulty seeing, even when wearing glasses? No 01/30/2014 Do you have serious difficul ty walking or climbing stairs? (5 years old or older) No 01/30/2014 Do you have difficulty dress ing or bathing? (5 years old or older) No 01/30/2014 Because of a physical, menta l, or emotional condition, do you have difficulty doing errands alone such as visiting a doctor's office or shopping? (15 years old or older) No 01/30/2014 Cognitive Status Response Date of Assess ent Because of a physical, menta l, or emotional condition, do you have serious difficulty concentrating, remembering, or making decisions? (5 years old or older) Yes 01/30/2014 documented as of this encounter Plan of Treatment Upcoming Encounters Date Type Department Care Team (Late st Contact Info) Description 04/02/2024 11:15 EDT Telemedicine [facility] Urology - [address] [phone] David Bhatt, [address] [place] [address] [address] [place] [phone] 07/12/2024 12:30 EST Hospital Encounter [place] [address] [place] [phone] oRdrigo Noyola MD [address] [place] [phone] Paroxysmal atrial fibrillation (HCC-CMS) 07/12/2024 12:30 EST - 07/12/2024 17:00 EST Surgery [place] [address] [place] [phone] Rodrigo Noyola MD [address] [place] [phone] Albation A-Fib [[id number] (CPT??)] 07/23/2024 11:00 EST Office Visit [facility] Cardiology Clinic [address] [place] [phone] Mailni Euceda MD [address] [place] [phone] documented as of this encounter Procedures Procedure Name Priority Date/Time Associated Diagnosis Comments XR HAND LEFT 3 OR MORE VIEWS 11/22/2017 9:52 EDT documented in this encounter Results * XR HAND LEFT 3 OR MORE VIEWS (11/22/2017 9:52 EDT) Anatomical Region Laterality Modality Upper Extremities Left Other 11/22/2017 9:52 EDT Narrative 11/22/2017 9:55 EDT ? EXAM: RADIOLOGY/HAND LEFT 3+VIEW ?EX. D/ (0945) ? CLINICAL INFORMATION: ? TABLE SAW INJURY TO 1ST, 3RD, 4TH DIGITS ? HAND LEFT 3+VIEW ? Signs and Symptoms/Comments: LT HAND LAC TABLE SAW INJURY TO 1ST, ? 3RD, 4TH DIGITS ? Comparison: None. ? Findings: ? 3 views of the left hand were obtained. ? The radial aspect of the distal phalanx of the 1st ray contains a ? defect which is presumably a table saw injury. Tiny fragments are ? evident within the adjacent soft tissues. The soft tissues reveal ? irregularity likely reflective of a laceration and therefore this ? should be considered an open fracture. ? There also comminuted #fractures involving the distal phalanges of ? the 3rd and 4th rays. There are adjacent skin lacerations indicative ? of open fracture. ? Impression: ? 1. ??Open fractures of the 1st, 3rd, and 4th distal phalanges. ? REPORT SIGNED IN OTHER VENDOR SYSTEM 11/22/2017 ?Reported By: James Diallo MD ? CC: ? Transcribed Date/Time: 11/22/2017 (09) ? Ferryboat Operator Cable: ? Printed Date/Time: 02/22/2019 (2072) ? PAGE 1 ? Signed Report ? Procedure Note James Diallo MD - 07/11/2019 EXAM: RADIOLOGY/HAND LEFT 3+VIEW EX. D/ (0945) CLINICAL INFORMATION: TABLE SAW INJURY TO 1ST, 3RD, 4TH DIGITS HAND LEFT 3+VIEW Signs and Symptoms/Comments: LT HAND LAC TABLE SAW INJURY TO 1ST, 3RD, 4TH DIGITS Comparison: None. Findings: 3 views of the left hand were obtained. The radial aspect of the distal phalanx of the 1st ray contains a defect which is presumably a table saw injury. Tiny fragments are evident within the adjacent soft tissues. The soft tissues reveal irregularity likely reflective of a laceration and therefore this should be considered an open fracture. There also comminuted #fractures involving the distal phalanges of the 3rd and 4th rays. There are adjacent skin lacerationsindicative of open fracture. Impression: 1. Open fractures of the 1st, 3rd, and 4th distal phalanges. REPORT SIGNED IN OTHER VENDOR SYSTEM 11/22/2017 Reported By: James Diallo MD CC: Transcribed Date/Time: 11/22/2017 (0955) Ferryboat Operator Cable: Printed Date/Time: 02/22/2019 (8155) PAGE 1 Signed Report Adonis Wallis PA-C IMG DIAGNOSTIC IMAG ING ORDERABLES documented in this encounter Visit Diagnoses Not on filedocumented in this encounter Care Teams Coil Winder Repair Relationship Specialty Start Date End Date David Barber MD PCP - General 12/07/13 08/25/21 David Barber MD 12/05/13 08/25/21 documented as of this encounter
--- OUTSIDE RECORDS SUMMARY | 2024-03-27 17:28 | XMS_ITS | Encounter Summary ---
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) Social History Tobacco Use Types [...] Sign Reading Time Taken Comments Blood Pressure 116/70 06/18/20201413 EDT Pulse 76 06/18/20201413 EDT Temperature 36.2 ??C (97.1 ??F) 06/18/20201413 EDT Respiratory Rate - - Oxygen Saturation 97% 06/18/20201413 EDT Inhaled Oxygen Concentration - - Weight 102.5 kg (226 lb) 06/18/20201413 EDT Height 182.9 cm (6') 06/18/20201413 EDT Body Mass Index 30.65 06/18/20201413 EDT documented in this encounter Functional Status [...] No 01/30/2014 Cognitive Status Response Date of Assessm ent Because of a physical, menta l, or emotional condition, do you have serious difficulty concentrating, remembering, or making decisions? (5 years old or older) Yes 01/30/2014 documented as of this encounter Progress Notes * Aleida Hunter PA-C - 06/18/2020 1500 EDT EMPLOYER: [employer]- 1.020 Glucose- negative Blood- negative Protein- negative HEARING SCREEN Hearing Aids- None Right- Passed whisper test at 5 feet Left- Passed whisper test at 5 feet VISION SCREEN Corrected- Right- 20/25 Left- 20/25 Both- 20/20 Peripheral vision- >70 degrees in both eyes Color test- passed. He states that his most recent A1C was 5.8 but he does not have documentation of this at this time. [facility] [place] DOT Physical: Subjective: Chief Complaint(s): Employment Physical (DOT Physical) HPI: Ralph Garnica is a 70 y.o. year-old male that I am seeing in for DOT Physical Exam. See scanned DOTPhysical exam form in record for details. 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 He has HTN, hyperlipidemia, and DM II. He relates he has been taken off his Norvasc as his HTN was controlled. He does daily FS in the am and FS run 100-130. His last HgA1C in May was 5.8. I have reviewed patient's medication list, past medical history, social history, and family historyand updated as appropriate on 06/18/2020. He is pretty active and continues to [place] about 8 times a winter. He receives an annual eye exam with Dr. Marshall in [place]. Patient's does not have any pertinent problems on file. No past medical history on file. No past surgical history on file. No family history on file. Social History Occupational History ??? Not on file Tobacco Use ??? Smoking status: Never Smoker ??? Smokeless tobacco: Never Used Substance and Sexual Activity ??? Alcohol use: Yes Drinks per session: 1 or 2 Binge frequency: Weekly Comment: 1-2 beers on the weekend ??? Drug use: Not on file ??? Sexual activity: Not on file Current Outpatient Medications: ??? aspirin chewable 81 mg tablet, Take 81 mg by mouth daily., Disp: , Rfl: ??? atorvastatin (LIPITOR) 40 mg tablet, Take 40 mg by mouth daily., Disp: , Rfl: ??? losartan (COZAAR) 50 mg tablet, Take 50 mg by mouth daily., Disp: , Rfl: ??? metFORMIN (GLUCOPHAGE) 500 mg tablet, Take 500 mg by mouth 2 times daily. , Disp: , Rfl: ??? ONETOUCH ULTRA BLUE TEST STRIP test strips, TEST TWICE DAILY, Disp: , Rfl: ??? ONETOUCH ULTRASOFT LANCETS, TEST TWICE DAILY, Disp: , Rfl: ??? TRULICITY 0.75 mg/0.5 mL subcutaneous pen, ADM 0.5 ML SC 1 TIME WEEKLY, Disp: , Rfl: Objective: Examination: Vitals: height is 182.9 cm (72) and weight is 102.5 kg (226 lb) (abnormal). His temperature is 36.2 ??C (97.1 ??F). His blood pressure is 116/70 and his pulse is 76. His oxygen saturation is 97%. Body mass index is 30.65 kg/m??. Physical Exam See scanned DOT Physical Exam Form in record. Assessment and Plan: 1. 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 documented in this encounter Plan of Treatment Upcoming Encounters Date Type Department Care Team (Late st Contact Info) Description 04/02/2024 11:15 EDT Telemedicine [facility] Urology - [address] [phone] David Bhatt DO 111 [facility] 5 [place] [phone] 07/12/2024 12:30 EST Hospital Encounter [place] [id number] [address] [place] [phone] Rodrigo Noyola MD [address] [place] [phone] Paroxysmal atrial fibrillation ([facility]-CMS) 07/12/2024 12:30 EST - 07/12/2024 17:00 EST Surgery [place] [address] EP Lab [address] [place] [phone] Rodrigo Noyola MD [address] [place] [phone] Albation A-Fib [[id number] (CPT??)] 07/23/2024 11:00 EST Office Visit [facility] Cardiology Clinic [address] [place] [address] Malini Euceda MD 111 [facility], [place], Level 1 [place] [phone] documented as of this encounter Visit Diagnoses Diagnosis Encounter for CDL (commercial driving license) exam- Primary Health examination of defined subpopulation Paroxysmal atrial fibrillation (HCC-CMS)- Primary Atrial fibrillation Paroxysmal atrial fibrillation (HCC-CMS) Atrial fibrillation documented in this encounter Discontinued Medications Medication Sig Discontinue Reason Start Date End Da te B-Complex with Vitamin C tablet Take 1 Tab by mouth daily. Therapy completed 06/18/2020 lisinopril (PRINIVIL, ZESTRIL) 10 mg tablet Take 10 mg by mouth daily. Therapy completed 06/18/2020 amLODIPine (NORVASC) 5 mg tablet Patient Stopped Taking 05/13/2020 0 documented as of this encounter Historical Medications * This list may reflect changes made after this encounter. Medication Sig Dispensed Refills Start Date End Date ONETOUCH ULTRA BLUE TEST STRIP test strips 06/02/2020 ONETOUCH ULTRASOFT LANCETS 06/02/2020 TRULICITY 0.75 mg/0.5 mL subcutaneous penIndications:type 2 diabetes mellitus Inject 0.75 mg into the skin once a week. On Sundays06/12/2020 losartan (COZAAR) 50 mg tabletIndications:hyperte nsion Take 50 mg by mouth daily. 08/27/2021 amLODIPine (NORVASC) 5 mg tablet 05/13/2020 06/18/2020 added in this encounter Care Teams Melangeur Operator Relationship Specialty Start Date End Date David Barber MD PCP - General 12/07/13 08/25/21 David Barber MD 12/05/13 08/25/21 documented as of this encounter
--- OUTSIDE RECORDS SUMMARY | 2024-03-27 17:28 | XMS_ITS | Encounter Summary ---
Author Organization [facility] Address [address] [place] [address] Care Team Providers Care Position Classification Specialist Name Role Phone David Barber MD [facility] David Barber MD Primary Care Provider Unav ailable Reason for Visit * Reason Onset Date Comments Appointment Related 01/24/2014 PROCEDURE 5. 27.14 Encounter Details Date Type Department Care Team (Late st Contact Info) Description 01/24/2014 Telephone [facility] Urology - [address] [phone] David Bhatt, DO 111 [facility], Level 5 [place] [phone] Appointment Related (PROCEDURE 5.27.14) Social History Tobacco Use Types Packs/Day Years Used Date Smoking Tobacco: Never Sex and Gender Information Value Date Recorded Sex Assigned at Not on file Gender Identity Male 08/26/2021 11:28 EST Sexual Orientation Not on file documented as of this encounter Miscellaneous Notes * Telephone Encounter - Annelise Steele - 01/25/2014 1314 EDT Message was left with patient to confirm their procedure. Pt was instructed to check in 3rd floor registration at 10:00 for a procedure at 12:00. Pt is awarethat there is nothing to eat or drink after midnight. * Telephone Encounter - Annelise Steele - 01/25/2014 1312 EDT Procedure confirmed with patient. Pt was instructed to check in 3rd floor registration at 10:00 for a procedure at 12:00. Pt is awarethat there is nothing to eat or drink after midnight. * Telephone Encounter - Annelise Steele - 01/24/2014 1428 EDT Message left for patient. Estimated time for 01/29/14 procedure is 12:00 with a check in at 10. Pt will be contacted again on Tuesday afternoon with a confirmed procedure time. documented in this encounter Plan of Treatment Upcoming Encounters Date Type Department Care Team (Late st Contact Info) Description 04/02/2024 11:15 EDT Telemedicine [facility] Urology - [address] [phone] David Bhatt DO 111 [facility] 5 [place] [phone] 07/12/2024 12:30 EST Hospital Encounter [place] [address] [place] [phone] Rodrigo Noyola MD [address] [place] [phone] Paroxysmal atrial fibrillation (HCC-CMS) 07/12/2024 12:30 EST - 07/12/2024 17:00 EST Surgery [place] [address] EP [address] [place] [phone] Rodrigo Noyola MD [address] [place] [address] 1 [place] [phone] Bryce Woo [[id number] (CPT??)] 07/23/2024 11:00 EST Office Visit [facility] Cardiology Clinic [address] [place] [address] Malini Euceda MD [address] [phone] documented as of this encounter Visit Diagnoses Not on filedocumented in this encounter Care Teams Position Classification Specialist Relationship Specialty Start Date End Date David Barber MD PCP - General 12/07/13 08/25/21 David Barber MD 12/05/13 08/25/21 documented as of this encounter
--- OUTSIDE RECORDS SUMMARY | 2024-03-27 17:28 | XMS_ITS | Encounter Summary ---
Author Organization [facility] Address [address] [place] [address] Care Team Providers Care Tobacco Educator Name Role Phone David Barber MD Un[facility] David Barber MD Primary Care Provider Unav ailable Reason for Visit * Reason Onset Date Comments Follow-up 12/17/2013 Encounter Details Date Type Department Care Team (Late st Contact Info) Description 12/17/2013 Telephone [facility] Urology - [address] [phone] David Bhatt, DO 111 [facility], Level 5 [place] [address] Follow-up Social History Tobacco Use Types Packs/Day Years Used Date Smoking Tobacco: Never Sex and Gender Information Value Date Recorded Sex Assigned at Not on file Gender Identity Male 08/26/2021 11:28 EST Sexual Orientation Not on file documented as of this encounter Miscellaneous Notes * Addendum Note - Mariaa Macias - 12/19/2013 1417 EDTAddended by: MARIAA MACIAS on: 12/19/2013 14:17 Modules accepted: Orders * Telephone Encounter - Mariaa Macias - 12/19/2013 1324 EDT Spoke to pt and [facility]--problem is that coude catheters were ordered-- needs straight catheters Reordered -- [facility]me sent to [facility] Pt notified * Telephone Encounter - Estefany Delacruz RN - 12/18/2013 1317 EDT TC to patient, patient reports that [facility] sent him coude catheters instead of the regular ones. Patient has noticed increased irritation and blood at the tip @ times when catheterizing. Patient reports urine has now cleared. Patient reports that he called [facility] and new catheters aresuppose to be in process. Advised patient to call [facility] and ask how long till new shipment arrives and to call [facility] and see if they could provide some straight tip catheters while he waits for his supply. Patient aware and advised that I would have Dr. Bhatt's nurse @ [facility] touch base with him tomorrow * Telephone Encounter - Florencia Greenberg - 12/17/2013 1432 EDT Pt calling to discuss his cath, occasionally having hematuria, Has the wrong size cath by [facility] 16inch 14 egyptian wich has a bent tip which differs from the straight tip that he was using, would like to discuss if possibly has an infection or if the burning sensation he is having might be due to wrong cath, ok w/ speaking w/ nurse or dr. Bhatt documented in this encounter Plan of Treatment Upcoming Encounters Date Type Department Care Team (Late st Contact Info) Description 04/02/2024 11:15 EDT Telemedicine [facility] Urology - [address] [phone] David Bhatt, DO 111 [facility], Level 5 [place] [phone] 07/12/2024 12:30 EST Hospital Encounter [place] [address] EP Lab [address] [place], [place] [address] Rodrigo Noyola MD [address] [place] [phone] Paroxysmal atrial fibrillation (HCC-CMS) 07/12/2024 12:30 EST - 07/12/2024 17:00 EST Surgery [place] [address] EP Lab [address] [place], [place] [phone] Rodrigo Noyola MD [address] [place] [phone] Albation A-Fib [[id number] (CPT??)] 07/23/2024 11:00 EST Office Visit [facility] Cardiology Clinic [address] [place] [address] Malini Euceda MD [address] [place] [phone] documented as of this encounter Visit Diagnoses Diagnosis Urinary retention- Primary Retention of urine, unspecified Paroxysmal atrial fibrillation (HCC-CMS)- Primary Atrial fibrillation Paroxysmal atrial fibrillation (HCC-CMS) Atrial fibrillation documented in this encounter Orders Equipment Count Last Ordered Date First Orde red Date GENERIC DME ORDER 3 12/19/2013 documented in this encounter Care Teams Tobacco Educator Relationship Specialty Start Date End Date David Barber MD PCP - General 12/07/13 08/25/21 David Barber MD 12/05/13 08/25/21 documented as of this encounter
--- OUTSIDE RECORDS SUMMARY | 2024-03-27 17:28 | XMS_ITS | Encounter Summary ---
Author Organization [facility] Address [address] [place] [address] Care Team Providers Care Faith Doctor Name Role Phone Unavailable Primary Care Provider Unavailabl e Encounter Details Date Type Department Care Team (Latest Contact Info) Description 09/26/2013 17:45 EST - 09/26/2013 23:59 EST Hospital Encounter [address] [address] Unknown, Provider, Discharge Disposition: Home or Self Care Social History Tobacco Use Types Packs/Day Years Used Date Smoking Tobacco: Never Assessed Sex and Gender Information Value Date Recorded Sex Assigned at Not on file Gender Identity Male 08/26/2021 11:28 EST Sexual Orientation Not on file documented as of this encounter Discharge Disposition Disposition Code Departure Means Destination Home or Self Fdc documented in this encounter Plan of Treatment Upcoming Encounters Date Type Department Care Team (Late st Contact Info) Description 04/02/2024 11:15 EDT Telemedicine [facility] Urology - [address] [phone] David Bhatt, 111 [facility], Level 5 [place] [phone] 07/12/2024 12:30 EST Hospital Encounter [place] [facility] EP Lab [address] [place], [place] [phone] Rodrigo Noyola MD [address] [place] [phone] Paroxysmal atrial fibrillation ([facility]) 07/12/2024 12:30 EST - 07/12/2024 17:00 EST Surgery [place] [address] [address] [place] [address] Rodrigo Noyola MD [address] [place] [phone] Bryce Woo [[id number] (CPT??)] 07/23/2024 11:00 EST Office Visit [facility] Cardiology Clinic [address] [place] [address] [phone] Malini Euceda MD [address] [place] [phone] documented as of this encounter Visit Diagnoses Not on filedocumented in this encounter
--- OUTSIDE RECORDS SUMMARY | 2024-03-27 17:28 | XMS_ITS | Encounter Summary ---
Author Organization [facility] Address [address] [place] [address] Care Team Providers Care Cnc Manager Name Role Phone David Barber MD Un[facility] David Barber MD Primary Care Provider Unav ailable Reason for Visit * Reason Onset Date Comments Update 02/05/2014 re hot tub Encounter Details Date Type Department Care Team (Late st Contact Info) Description 02/05/2014 Telephone [facility] Urology - [address] [address] David Bhatt, DO 111 [facility], Level 5 [place] [phone] Update (re hot tub) Social History Tobacco Use Types Packs/Day Years [...] Yes 01/30/2014 documented as of this encounter Miscellaneous Notes * Telephone Encounter - Estefany Delacruz, RN - 02/05/2014 1602 EDT TC to patient, patient reports he is doing well, he is urinating clear yellow urine on a regular basis, patient reports he is catheterizing himself 3-4 times a day and getting volumes of around 200 cc. Patient reports urine is red and he plans to catheterize for a few more weeks than decrease the frequency, he feels that catheterizing is getting out the left over thicker urine and some clots fromthe procedure. Patient asking if he can use the hot tub, discussed with Dr. Bhatt and no objections to hot tub since catheter is out, pt reports he is drinking lots of fluids and doing very well * Telephone Encounter - Jewel Rapp. - 02/05/2014 1531 EDT Pt had procedure on 01/29. Post op doing well. Pt would like top know when he would be clear to use the hot tub. Please call and advise. documented in this encounter Plan of Treatment Upcoming Encounters Date Type Department Care Team (Late st Contact Info) Description 04/02/2024 11:15 EDT Telemedicine [facility] Urology - [address] [phone] David Bhatt, DO 111 [facility], [address] [place] [phone] 07/12/2024 12:30 EST Hospital Encounter [place] [id number] EP Lab [address] [place], [place] [id number] Rodrigo Noyola MD [address] [place] [phone] Paroxysmal atrial fibrillation ([facility]) 07/12/2024 12:30 EST - 07/12/2024 17:00 EST Surgery [place] [address] EP Lab [address] [place], [place] [id number] Rodrigo Noyola MD [address] [place] [phone] Albation A-Fib [[id number] (CPT??)] 07/23/2024 11:00 EST Office Visit [facility] [address] [place] [address] Malini Euceda MD [address] [place] [phone] documented as of this encounter Visit Diagnoses Not on filedocumented in this encounter Care Teams Cnc Manager Relationship Specialty Start Date End Date David Barber MD PCP - General 12/07/13 08/25/21 David Barber MD 12/05/13 08/25/21 documented as of this encounter
--- OUTSIDE RECORDS SUMMARY | 2024-03-27 17:28 | XMS_ITS | Encounter Summary ---
Author Organization [facility] Address [address] [place] [address] Care Team Providers Care Bushler Name Role Phone David Barber MD [facility] e David Barber MD Primary Care Provider Unav ailable Reason for Visit * Reason Onset Date Comments Returning Call 01/01/2014 Annelise Returning Call 01/02/2014 Annelise Returning Call 01/02/2014 Encounter Details Date Type Department Care Team (Late st Contact Info) Description 01/01/2014 Telephone [facility] Urology - [address] [phone] David Bhatt, DO 111 [facility], [address] 5 [place] [phone] Returning Call (Annelise); Returning Call (Annelise ); Returning Call Social History Tobacco Use Types Packs/Day Years Used Date Smoking Tobacco: Never Sex and Gender Information Value Date Recorded Sex Assigned at Not on file Gender Identity Male 08/26/2021 11:28 EST Sexual Orientation Not on file documented as of this encounter Miscellaneous Notes * Telephone Encounter - Annelise Steele - 01/02/2014 1152 EDT Procedure confirmed with patient. Pre-op history and physical is scheduled with Dr. Barber on 01/18/14 at 11:10. * Telephone Encounter - Annelise Steele - 01/02/2014 1150 EDT Left a message asking patient to call back about his procedure. * Telephone Encounter - Linda Morales - 01/02/2014 0847 EDT Per pt he is returning Annelise's call. * Telephone Encounter - Cinthia Snyder - 01/02/2014 0811 EDT Pt states he is returning Annelise's call. * Telephone Encounter - Linda Morales - 01/01/2014 1648 EDT Pt returning a call about procedure scheduling. documented in this encounter Plan of Treatment Upcoming Encounters Date Type Department Care Team (Late st Contact Info) Description 04/02/2024 11:15 EDT Telemedicine [facility] Urology - [address] [phone] David Bhatt DO 111 [facility], [address] 5 [place] [phone] 07/12/2024 12:30 EST Hospital Encounter [place] 1 EP Lab [address] [place], [place] [id number] Rodrigo Noyola MD 111 [facility], Level [address] [place] [phone] Paroxysmal atrial fibrillation (HCC-CMS) 07/12/2024 12:30 EST - 07/12/2024 17:00 EST Surgery [place] [address] [address] [place] [address] Rodrigo Noyola MD [address] [phone] Albcj Woo [[id number] (CPT??)] 07/23/2024 11:00 EST Office Visit [facility] Cardiology Clinic [address] [place], [place] 204[address] Malini Euceda MD [address] [place] [phone] documented as of this encounter Visit Diagnoses Not on filedocumented in this encounter Care Teams Bushler Relationship Specialty Start Date End Date David Barber MD PCP - General 12/07/13 08/25/21 David Barber MD 12/05/13 08/25/21 documented as of this encounter
--- OUTSIDE RECORDS SUMMARY | 2024-03-27 17:28 | XMS_ITS | Encounter Summary ---
Author Organization [facility] Address [address] [place] [address] Care Team Providers Care Stranner Name Role Phone David Barber MD [facility] David Barber MD Primary Care Provider Unav ailable Reason for Visit * Reason Onset Date Comments Paperwork request 02/25/2014 for work Encounter Details Date Type Department Care Team (Late st Contact Info) Description 02/25/2014 Telephone [facility] Urology - [address] [phone] David Bhatt, DO [address] [facility], [address] [place] [phone] Paperwork request (for work) Social History Tobacco Use Types Packs/Day Years [...] encounter Miscellaneous Notes * Telephone Encounter - Mariaa Macias - 02/25/2014 1239 EDT Pt stopped in to office / paperwork completed * Telephone Encounter - Mariaa Macias - 02/25/2014 1127 EDT [email or web address] * Telephone Encounter - Tabitha Muro - 02/25/2014 0857 EDT Pt said he had surgery with Dr Bhatt about 5 weeks ago and has some questions in regards to thework capabilities form Dr Bhatt filled out for him to go back to work. Pt said the form says kylee go back to work on 03/04 but he wouldn't be able to perform any of his work duties. Pt would like to know if the form can be refilled out. documented in this encounter Plan of Treatment Upcoming Encounters Date Type Department Care Team (Late st Contact Info) Description 04/02/2024 11:15 EDT Telemedicine [facility] Urology - [address] [phone] David Bahtt, DO 111 [facility], [address] [place] [phone] 07/12/2024 12:30 EST Hospital Encounter [place] 1 EP Lab [address] [place], [place] [address] Rodrigo Noyola MD [address] [phone] Paroxysmal atrial fibrillation ([facility]) 07/12/2024 12:30 EST - 07/12/2024 17:00 EST Surgery [place] [address] EP Lab [address] [place], [place] 3[address] Rodrigo Noyola MD [address] [phone] Albation A-Kiara [[id number] (CPT??)] 07/23/2024 11:00 EST Office Visit [facility] Cardiology Clinic [address] [place] [address] Malini Euceda MD [address] [place] [phone] documented as of this encounter Visit Diagnoses Not on filedocumented in this encounter Care Teams Stranner Relationship Specialty Start Date End Date David Barber MD PCP - General 12/07/13 08/25/21 David Barber MD 12/05/13 08/25/21 documented as of this encounter
--- OUTSIDE RECORDS SUMMARY | 2024-03-27 17:28 | XMS_ITS | Encounter Summary ---
Author Organization [facility] Address [address] [place] [address] Care Team Providers Care Water Plant Operator Name Role Phone David Barber MD Un[facility] David Barber MD Primary Care Provider Unav ailable Reason for Visit * Reason Onset Date Comments Follow-up 02/07/2014 Encounter Details Date Type Department Care Team (Late st Contact Info) Description 02/07/2014 Telephone [facility] Urology - [place] [address] [address] [place] [address] Mariaa Macias RN Follow-up Social History Tobacco Use Types Packs/Day [...] encounter Miscellaneous Notes * Telephone Encounter - GilbertoMariaa weinstein - 02/07/2014 1112 EDT fyi-- spoke to pt-- states is voiding q 1-2 hrs independently--cathing self 3-4 times daily -- urine remains bloody / no clots-- does c/o irritation at tip of meatus -- will call back if needed documented in this encounter Plan of Treatment Upcoming Encounters Date Type Department Care Team (Late st Contact Info) Description 04/02/2024 11:15 EDT Telemedicine [facility] Urology - [address] [phone] David Bhatt, 111 [facility], [address] [place] [phone] 07/12/2024 12:30 EST Hospital Encounter [place] [address] [place] [id number] Rodrigo Noyola MD [address] [place] [phone] Paroxysmal atrial fibrillation (HCC-CMS) 07/12/2024 12:30 EST - 07/12/2024 17:00 EST Surgery [place] 1 EP Lab [address] [place], [place] [id number] Rodrigo Noyola MD [address] [place] [address] 1 [place] [phone] Albation A-Fib [[id number] (CPT??)] 07/23/2024 11:00 EST Office Visit [facility] Cardiology Clinic [address] [place] [address] Malini Euceda MD [address] [place] [address] 1 [place] [phone] documented as of this encounter Visit Diagnoses Not on filedocumented in this encounter Care Teams Water Plant Operator Relationship Specialty Start Date End Date David Barber MD PCP - General 12/07/13 08/25/21 David Barber MD 12/05/13 08/25/21 documented as of this encounter
--- OUTSIDE RECORDS SUMMARY | 2024-03-27 17:28 | XMS_ITS | Encounter Summary ---
Author Organization [facility] Address [address] [place] [address] Care Team Providers Care State Patrol Officer Name Role Phone Unavailable Primary Care Provider Unavailabl e Encounter Details Date Type Department Care Team (Latest Contact Info) Description 05/16/2006 13:00 EDT Hospital Encounter [address] [address] Ann Talley FNP [facility] [address] [place] [address] Discharge Disposition: Auto Discharge Social History Tobacco Use Types Packs/Day Years Used Date Smoking Tobacco: Never Assessed Sex and Gender Information Value Date Recorded Sex Assigned at Not on file Gender Identity Male 08/26/2021 11:28 EST Sexual Orientation Not on file documented as of this encounter Discharge Disposition Disposition Code Departure Means Destination Auto Discharge documented in this encounter Plan of Treatment Upcoming Encounters Date Type Department Care Team (Late st Contact Info) Description 04/02/2024 11:15 EDT Telemedicine [facility] Urology - [address] [phone] David Bhatt, DO 111 [facility], [address] [place] [phone] 07/12/2024 12:30 EST Hospital Encounter [place] [facility] EP Lab [address] [place], [place] [address] Rodrigo Noyola MD [address] [phone] Paroxysmal atrial fibrillation (HCC-CMS) 07/12/2024 12:30 EST - 07/12/2024 17:00 EST Surgery [place] [address] EP Lab [address] [place], [place] [address] Rodrigo Noyola MD [address] [phone] Bryce Woo [[id number] (CPT??)] 07/23/2024 11:00 EST Office Visit [facility] Cardiology Clinic [address] [place], [place] [address] Malini Euceda MD [address] [place] [phone] documented as of this encounter Visit Diagnoses Not on filedocumented in this encounter
--- OUTSIDE RECORDS SUMMARY | 2024-03-27 17:28 | XMS_ITS | Encounter Summary ---
Author Organization [facility] Address [address] [place] [address] Care Team Providers Care Harp Maker Name Role Phone David Barber MD Unavailable Unavailabl e David Barber MD Primary Care Provider Unav ailable Encounter Details Date Type Department Care Team (Late st Contact Info) Description 01/26/2014 Pre-Procedure Orders Encounter [address] [phone] David Bhatt, DO [address] [place] [phone] BPH (benign prostatic hypertrophy) with urinary retention (Primary Dx) Social History [...] Contact Info) Description 04/02/2024 11:15 EDT Telemedicine [address] [phone] David Bhatt, DO [address] [place] [phone] 07/12/2024 12:30 EST Hospital Encounter [place] [address] EP Lab [address] [place], [place] [id number] Rodrigo Noyola MD [address] [phone] Paroxysmal atrial fibrillation (HCC-CMS) 07/12/2024 12:30 EST - 07/12/2024 17:00 EST Surgery [place] [address] EP Lab [address] [place], [place] [id number] Rodrigo Noyola MD [address] [phone] Albation A-Fib [[id number] (CPT??)] 07/23/2024 11:00 EST Office Visit [facility] Cardiology Clinic [address] [place] [address] Malini Euceda MD [address] [place] [phone] documented as of this encounter Visit Diagnoses Diagnosis BPH (benign prostatic hypertrophy) with urinary retention- Primary Hypertrophy of prostate with urinary obstruction and other lower urinary tract symptoms (LUTS) Paroxysmal atrial fibrillation (HCC-CMS)- Primary Atrial fibrillation Paroxysmal atrial fibrillation (HCC-CMS) Atrial fibrillation documented in this encounter Care Teams Harp Maker Relationship Specialty Start Date End Date David Barber MD PCP - General 12/07/13 08/25/21 David Barber MD 12/05/13 08/25/21 documented as of this encounter
--- OUTSIDE RECORDS SUMMARY | 2024-03-27 17:28 | XMS_ITS | Encounter Summary ---
Author Organization [facility] Address [address] [place] [address] Care Team Providers Care Real Estate Operations Manager Name Role Phone Neeta Barber MD [facility] Primary Care Provider Unav ailable Reason for Referral * (Routine) - Closed Specialty Diagnoses / Procedures Referred By Contac t Referred To Contact Claudia Vale PA-C [address] [place] [address] Referral ID Status Reason Start Date Expiration Date V isits Requested Visits Authorized [id number] Closed Specialty Services Required 01/30/2014 1 1 * (Routine) - Closed Specialty Diagnoses / Procedures Referred By Contac t Referred To Contact Claudia Vale PA-C [address] [place] [address] Referral ID Status Reason Start Date Expiration Date V isits Requested Visits Authorized [id number] Closed Specialty Services Required 01/30/2014 1 1 * (Routine) - Closed Specialty Diagnoses / Procedures Referred By Contac t Referred To Contact Claudia Vale PA-C [address] [place] [address] Referral ID Status Reason Start Date Expiration Date V isits Requested Visits Authorized [id number] Closed Specialty Services Required 01/30/2014 1 1 Comments We are currently collecting quality data on patients having surgery. You may receive a phone call, email, and/or letter about your surgery asking you a series of follow up questions to evaluate specifics aspects of your care. Thank you for your participation. * (Routine) - Closed Specialty Diagnoses / Procedures Referred By Contac t Referred To Contact Claudia Vale PA-C [address] [place] [address] Referral ID Status Reason Start Date Expiration Date V isits Requested Visits Authorized [id number] Closed Specialty Services Required 01/30/[address] Bhatt on 02/04/14 at [facility] office for voiding trial and follow-up. Estrada from the office will be calling you with the appointment time. * (Routine) - Closed Specialty Diagnoses / Procedures Referred By Contac t Referred To Contact Claudia Vale PA-C [address] [place] [address] Referral ID Status Reason Start Date Expiration Date V isits Requested Visits Authorized [id number] Closed Specialty Services Required 01/30/2014 1 1 Comments Chest pain (angina) Dizziness or fainting Decreased urine output Fever greater than 101.5 or chills Inability to swallow or increasing difficulty swallowing Increased or new pain Nausea or vomiting Pain unrelieved by medication Recurrence of symptoms that brought you to the hospital Severe or increasing headache Shortness of breath or rapid breathing Skin rash Signs of infection such as pain, redness, swelling or drainage at procedure or wound site Swelling in your legs Encounter Details Date Type Department Care Team (Late st Contact Info) Description 01/29/2014 9:50 EDT - 01/30/2014 12:31 EDT Hospital Encounter [facility] General Surgery Unit [address] [place] [address] Candice Bhatt, DO [address] [facility], [address] [place] [phone] BPH (benign prostatic hypertrophy) with urinary retention (Primary Dx) Discharge Disposition: Home or Self Care Social History Tobacco Use Types Packs/Day Years Used Date Smoking Tobacco: Never Sex and Gender Information Value Date Recorded Sex Assigned at Not on file Gender Identity Male 08/26/2021 11:28 EST Sexual Orientation Not on file documented as of this encounter Last Filed Vital Signs Vital Sign Reading Time Taken Comments Blood Pressure 140/66 01/30/2014 0634 EDT Pulse - - Temperature 36.6 ??C (97.9 ??F) 01/30/2014 0634 EDT Respiratory Rate 16 01/30/2014 0634 EDT Oxygen Saturation 98% 01/30/2014 0634 EDT Inhaled Oxygen Concentration - - Weight 97.5 kg (215 lb) 01/29/20142007 EDT Height 180.3 cm (5' 10.98) 01/29/2014 2008 EDT Body Mass Index 30 01/29/2014 2008 EDT documented in this encounter Functional Status [...] Yes 01/30/2014 documented as of this encounter Discharge Summaries * Claudia Vale - 01/29/2014 1240 EDT Discharge Summary Chief Complaint/Reason for Admission: Benign prostatic hyperplasia, urinary retention Principal/Final Diagnosis: Benign prostatic hyperplasia, urinary retention Principal Procedure: Cystoscopy, transurethral resection of prostate Date: 01/29/2014 Secondary Procedures: None Complications/Co-Morbid Conditions: Patient Active Problem List Diagnosis ??? Hyperlipidemia ??? DM (diabetes mellitus), secondary ??? HTN (hypertension) ??? BBB (bundle branch block) ??? BPH (benign prostatic hypertrophy) with urinary retention Prognosis: good Condition at Discharge: Stable Assessment at Discharge: Vital signs: Patient Vitals for the past 12 hrs: BP Heart Rate Resp Temp SpO2 O2 Device 01/30/14 0634 140/66 mmHg 68 BPM 16 36.6 ??C (97.9 ??F) 98 % Room air 01/30/14 0157 127/63 mmHg 57 BPM 16 36 ??C (96.8 ??F) 97 % - Hospital Course: Pt is a 63 y/o male with BPH, urinary retention and MMP, as noted in above co- morbidities, whom wasadmitted on 01/29/2014 after undergoing a TURP. Pt was brought to the OR under general anesthesia and underwent an uncomplicated intraoperative course. Pt was brought to the PACU in stable condition with indwelling 3 way chaudhary catheter to continuous bladder irrigation and was later transferred to the floor for continuing post-operative care. CBI was titrated to off POD #0-1 and urine remained clear with ambulation. Pt with AVSS, labs stable, tolerating PO diet, and pain well controlled with PO medications. Pt and family were taught home chaudhary catheter care. Pt stable for discharge to home POD #1 with indwelling chaudhary catheter and will follow-up with Dr. Bhatt on 02/04/14 at [facility] office forpost-op visit, pathology review, and voiding trial. Relevant Studies at Discharge: none Last Lab Results at Discharge: BUN: Lab Results Component Value Date BUN 20 01/30/2014 Creatinine: Lab Results Component Value Date CREATININE 1.20 01/30/2014 CBC: Lab Results Component Value Date WBC 7.94 01/30/2014 RBC 4.34* 01/30/2014 HGB 13.2* 01/30/2014 HCT 37.6* 01/30/2014 MCV 87 01/30/2014 MCH 30.4 01/30/2014 MCHC 35.1 01/30/2014 PLT 221 01/30/2014 Electrolytes: Lab Results Component Value Date NA 136 01/30/2014 K 4.6 01/30/2014 CL 100 01/30/2014 CO2 28 01/30/2014 cc: Candice Bhatt DO Brendan N Buckley, MD Brendan N Buckley Discharge Summary Completed: 01/30/14 KEB documented in this encounter Medications at Time of Discharge Medication Sig Dispensed Refills Start Date End Date aspirin chewable 81 mg tablet Take 81 mg by mouth daily. 02/10/2022 atorvastatin (LIPITOR) 40 mg tabletIndications:hyperl ipidemia Take 40 mg by mouth every evening. 09/25/2021 B-Complex with Vitamin C tablet Take 1 Tab by mouth daily. 06/18/2020 ciprofloxacin (CIPRO) 500 mg tablet Take 1 Tab by mouth 2 times daily for 7 days. 14 Tab 0 01/30/2014 02/06/2014 docusate sodium (COLACE) 100 mg capsule Take 1 Cap by mouth 2 times daily for 30 days. 60 Cap 0 01/30/2014 03/01/2014 HYDROmorphone (DILAUDID) 2 mg tablet Take 1-2 Tabs by mouth every 4 hours as needed for Pain. 15 Tab 0 01/30/2014 03/11/2014 lisinopril (PRINIVIL, ZESTRIL) 10 mg tablet Take 10 mg by mouth daily. 06/18/2020 metFORMIN (GLUCOPHAGE) 500 mg tablet Take 1,000 mg by mouth 2 times daily. Take 1 tablet in the morning and 1/2 tablet in the evening. 08/26/2021 documented as of this encounter Ordered Prescriptions Prescription Sig Dispensed Refills Start Date End Da te ciprofloxacin (CIPRO) 500 mg tablet Take 1 Tab by mouth 2 times daily for 7 days. 14 Tab 0 01/30/2014 02/06/2014 HYDROmorphone (DILAUDID) 2 mg tablet Take 1-2 Tabs by mouth every 4 hours as needed for Pain. 15 Tab 0 01/30/2014 03/11/2014 docusate sodium (COLACE) 100 mg capsule Take 1 Cap by mouth 2 times daily for 30 days. 60 Cap 0 01/30/2014 03/01/2014 documented in this encounter Discharge Disposition Disposition Code Departure Means Destination Home or Self Care documented in this encounter Progress Notes * Sara Guidry - 01/30/2014 1027 EDT Case Management Assessment & Initial Discharge Plan Working Diagnosis/Presenting Problem: Benign prostatic hyperplasia, urinary retention Living Arrangements: The patient lives with his spouse in a one story house in [place], [place]. There are three stairs to the entrance of the house. Functional Status (psychosocial and physical): The patient is independent with ADL's at baseline. Social Supports: Spouse Kelly Jeong, daughter Belem Jeong, and a friend Kelly Adler. Existing Community Resources: The patient's PCP is Dr. Neeta Lott. The patient uses the [facility] in [place], [place]. Advanced Directives/DPOA: The patient has an AD. His daughter is the DPOA. Cultural/Spiritual Needs: Listed as none. The patient declined a visit from the spiritual care office. Insurance/Financial Needs: Commercial Transportation Needs: The patient's spouse will transport him home. Patient Goals: Discharge home when medically ready. Assessment and Discharge Care Plan: The patient is a 63 year old male POD#1 s/p TURP. The CM met the patient. He declined home health services. The CM will follow the patient to discharge. Sara Guidry RN BSN CCM #[id number] * Candice Bhatt, - 01/30/2014 0634 EDT Urology Progress Note Admit Date: 01/29/2014 Date of Service: 01/30/2014 CC: BPH/retention POD#1 TURP S/24hrs: Oob/amb. Denies cp, sob, N/V, fevers, chillls. Pain well controlled. Drip rate CBI. O: Blood pressure 127/63, temperature 36 ??C (96.8 ??F), temperature source Tympanic, resp. rate 16, height 180.3 cm (70.98), weight 97.523 kg (215 lb), SpO2 97.00%. I/O: Intake/Output Summary (Last 24 hours) at 01/30/14 0634 Last data filed at 01/30/14 0200 Gross per 24 hour Intake 1750 ml Output 1725 ml Net 25 ml PE: Gen: Awake, in no acute distress. Skin is warm and dry. CV: RRR no M/R/G Pulm: CTA bilat, no wheezes or rhonchi Abd: soft, nontender, nondistended, +bowel sounds : Three way chaudhary in place, slow drip rate cbi (turned off on rounds) Neuro: AOx3 Ext: warm, well perfused,no edema CBC: Recent Labs 01/30/14 0459 WBC 7.94 HGB 13.2* HCT 37.6* PLT 221 BMP: Recent Labs 01/30/14 0459 NA 136 K 4.6 BUN 20 CREATININE 1.20 A/P: 63 y.o. male POD# 1 s/p TURP. HD stable and afebrile. Doing very well. reeval once pt ambulates offCBI. Enc oob/amb Maintain chaudhary IVF Cont abx Titrate CBI to light pink Home with chaudhary vs trial void LIZY: today vs tomorrow GILDARDO HERNANDEZ MD 01/30/2014 6:34 Attestation statement: I saw and examined the patient. I agree with the resident's/fellow's findings and plans as documented except .. * Halie Portillo RN - 01/25/2014 1044 EDT Ralph Jeong has been instructed as follows regarding medication administration for the day of thescheduled procedure. Date of Surgery: 01/29/14 Instructions for Taking Medications Day of Surgery Medication Last Dose Hold DOS Take DOS aspirin 325 mg tablet 01/25/14 yes aspirin chewable 81 mg tablet Yes atorvastatin (LIPITOR) 40 mg tablet Yes B-Complex with Vitamin C tablet 01/25/14 yes lisinopril (PRINIVIL, ZESTRIL) 10 mg tablet Yes metFORMIN (GLUCOPHAGE) 500 mg tablet 01/28/14 yes naproxen sodium (ALEVE) 220 mg capsule 01/25/14 yes documented in this encounter H&P Notes * Candice Bhatt DO - 01/29/2014 1121 EDT The preoperative history and physical which was performed within 30 days of this procedure has been reviewed and the clinically appropriate elements of the physical examination have been repeated. There are no changes to the documented history and physical. Periop care plan discussed with and Mrs Jeong. Candice Bhatt DO 01/29/2014 11:21 * FREIGHT CAR REPAIRER, SCAN 2 - 01/25/2014 1007 EDT documented in this encounter Nursing Notes * FREIGHT CAR REPAIRER, SCAN 2 - 02/05/2014 1257 EDT documented in this encounter OR Notes * OR PreOp - FREIGHT CAR REPAIRER, SCAN 2 - 02/05/2014 1257 EDT * OR Surgeon - Candice Bhatt DO - 01/29/2014 1524 EDT OPERATIVE REPORT SERVICE DATE: 01/29/2014 PREOPERATIVE DIAGNOSIS: Urine retention, previous obstructive uropathy, renal failure due to benignprostatic hypertrophy. POSTOPERATIVE DIAGNOSIS: Urine retention, previous obstructive uropathy, renal failure due to benign prostatic hypertrophy. PROCEDURE: Transurethral prostatectomy. SURGEON: Candice Bhatt DO BACKING IN MACHINE TENDER: Preethi PULIDO (No qualified urology attendings or residents available) ANESTHESIA: General inhalation anesthesia. INDICATIONS: Mr Jeong has the above history, presents for definitive treatment, although he and his are well aware that the flaccid component of his bladder, even though recovered by urodynamics,may not be enough to initiate voiding without CIC. NARRATIVE: He presents alert with stable vital signs, identified, part 1 safety checkup done. General inhalation anesthesia, dorsal lithotomy position. Abdominal exam, external genitalia normal. Prostate 3 to 4/4, benign. Prepped and draped in the usual fashion. Part 2 safety checklist done. A 28-Japanese continuous-flow resectoscope sheath was passed over an obturator without difficulty per urethra into the bladder. Bladder was examined, showing its trabeculations, cellules, but also a flaccidness to enlarged capacity. Trigone was unremarkable, displaced downward from the large pedunculated middle lobe. With glycine as irrigating solution, with the patient properly grounded, and standard electroresective technique with the 24-Japanese loop, the 12 o'clock position prostate tissue was resected to the surgical capsule. Right and left encircling technique and middle lobe and median bar removed. This got a very nice open channel. The ureteral orifices, verumontanum and external sphincter were all intact and well away from the above resection. Tissue specimen was removed from the bladder with the [employer] tissue evacuator. The bladder was filled. All instruments were removed after rollerballwas used to fulgurate the resected fossa. Excellent coude maneuver urine stream was obtained. A 24-Japanese Chaudhary catheter went easily, attached to closed tidal drainage. The patient was taken after part 3 safety checklist to the postanesthetic recovery room. SPECIMENS: Prostatic chips aggregate for analysis. Unless otherwise noted, there were no complications, no blood loss, no cultures obtained, no specimens removed, and no drains retained. Candice Bhatt DO 01 00 PM / Candice Garcia. DO Miller cn Confirmation: [id number] Dictation ID: [id number] * Anesthesia Procedure Notes - FREIGHT CAR REPAIRER, SCAN 2 - 01/29/2014 1322 EDT * OR PreOp - FREIGHT CAR REPAIRER, SCAN 2 - 01/29/2014 1311 EDT * Anesthesia Preprocedure Evaluation - FREIGHT CAR REPAIRER, SCAN 2 - 01/29/2014 1244 EDT documented in this encounter Miscellaneous Notes * Plan of Care - Dominga Acevedo RN - 01/30/2014 1230 EDT Problem: DISCHARGE PLANNING Goal: Patient???s Continuum Of Care Needs Are Met Outcome: Ongoing Data: Pt stating he has minimal pain, 09/14. Pt independently ambulating, CBI clamped this morning by rounding urology team. Discharge orders received. Action: Removed IV, provided discharge instructions and teaching. Chaudhary teaching reiterated. Pt stated he has had a chaudhary catheter before at home. Provided chaudhary supplies. Rxs sent to pharmacy, copies were provided to pt. Response: Pt left via wheelchair pushed by his . Answered all questions. Dominga Acevedo RN 01/30/2014 12:27 * Anesthesia Post-Eval - Morelia Vergara - 01/30/2014 1056 EDT Post Anesthesia Evaluation Date of Service: 01/30/2014 The patient has been evaluated and assessed. If present, post anesthetic events are documented below. The last set of recorded vital signs and pain rating were reviewed: ,Numeric Pain Level (Scale 1-10): 1 Procedure detail: Anesthesia Type: General Level of Consciousness: Awake Vital Signs: Stable Post Op Pain: Taking PO/IV pain meds with good effect Ambulatory Status: Ambulating Additional follow up needed: No Perioperative events: General Events: None Morelia Vergara CRNA 01/30/2014 10:56 * Plan of Care - Mary Ann Nunez RN - 01/30/2014 0016 EDT Problem: MOBILITY Goal: Mobility/Activity Is Maintained At Optimum Level For Patient Data: Pt OOB ambulating in the jeong independently with nursing assistance to help with IV pole and all tubes. Action: Assisted as needed, medicated for pain, IV abx administered. Response: Pt ambulated 1.5 laps around the unit. Pt stated he was passing gas in PACU. Will cont tomonitor and provide help as needed. MARY ANN NUNEZ RN 01/30/2014 0:13 documented in this encounter Plan of Treatment Upcoming Encounters Date Type Department Care Team (Late st Contact Info) Description 04/02/2024 11:15 EDT Telemedicine [facility] Urology - [address] [phone] Candice Bhatt, [address] [facility], [facility] [address] [place] [phone] 07/12/2024 12:30 EST Hospital Encounter [facility] [address] [facility] [address] [place] [address] [id number] Rodrigo Noyola MD [address] [place] [phone] Paroxysmal atrial fibrillation (HCC-CMS) 07/12/2024 12:30 EST - 07/12/2024 17:00 EST Surgery [facility] [address] [facility] [address] [place] [address] [id number] Rodrigo Noyola MD [address] [place] [phone] Albation A-Fib [[id number] (CPT??)] 07/23/2024 11:00 EST Office Visit [facility] [address] [place] [address] Malini Euceda MD [address] [place] [address] [address] [place] [phone] Scheduled Referrals Name Type Priority Associated Diagnoses Order Schedule PROVIDER FOLLOW-UP INSTRUCTIONS Outpatient Referral Routine Ordered: 01/30/2014 PROVIDER FOLLOW-UP INSTRUCTIONS Outpatient Referral Routine Ordered: 01/30/2014 PROVIDER FOLLOW-UP INSTRUCTIONS Outpatient Referral Routine Ordered: 01/30/2014 PROVIDER FOLLOW-UP INSTRUCTIONS Outpatient Referral Routine Ordered: 01/30/2014 PROVIDER FOLLOW-UP INSTRUCTIONS Outpatient Referral Routine Ordered: 01/30/2014 documented as of this encounter Procedures Procedure Name Priority Date/Time Associated Diagnosis Comments ECG REPORT - SCANNED 02/05/2014 12:57 EDT GLUCOSE, GLUCOMETER Routine 01/30/2014 1 1:14 EDT COMPLETE BLOOD COUNT Routine 01/30/2014 4:59 EDT BUN Routine 01/30/2014 4:59 EDT GLUCOSE, SERUM Routine 01/30/2014 4:59 EDT CREATININE Routine 01/30/2014 4:59 EDT ELECTROLYTES Routine 01/30/2014 4:59 EDT GLUCOSE, GLUCOMETER Routine 01/29/2014 2 1:20 EDT SURGICAL PATHOLOGY Routine 01/29/2014 18 :58 EDT GLUCOSE, GLUCOMETER Routine 01/29/2014 1 8:55 EDT GLUCOSE, GLUCOMETER Routine 01/29/2014 1 3:33 EDT GLUCOSE, GLUCOMETER Routine 01/29/2014 1 1:01 EDT ECG REPORT - SCANNED 01/25/2014 10:07 EDT documented in this encounter Results * ECG REPORT - SCANNED (02/05/2014 12:57 EDT) 02/05/2014 12:5 7 EDT Scan 2 Wool Classer PROCEDURE/MINOR KIERSTEN GICAL ORDERABLES * (ABNORMAL) GLUCOSE, GLUCOMETER (01/30/2014 11:14 EDT) Glucose, Fingerstick 139(H) 70 - 100 mg/dl [facility] Slot Operations Manager ID [id number] [facility] Comment:Test Performed by [facility] 01/30/2014 11:1 4 EDT 01/30/2014 11:15 EDT Candice Bhatt DO CHEMISTRY & BLOOD G ORDERABLES Performing Organization Address [facility] de Phone Number [facility] [address] [place] [address] * (ABNORMAL) GLUCOSE, SERUM (01/30/2014 4:59 EDT) Glucose, Serum 122(H) 70 - 100 mg/dl [facility] Blood specimen (specimen) 01/30/2014 4:59 EDT 01/30/2014 5:07 EDT Preethi Packer PA-C CHEMISTRY & BLO OD GAS ORDERABLES Performing Organization Address [facility] de Phone Number [facility] [address] [place] [address] * CREATININE (01/30/2014 4:59 EDT) Creatinine 1.20 0.66 - 1.25 mg/dl [facility] GFR, Calculated >60 >60 ml/min/1.7 3m2 [facility] Blood specimen (specimen) 01/30/2014 4:59 EDT 01/30/2014 5:07 EDT Preethi Packer PA-C CHEMISTRY & BLO OD GAS ORDERABLES Performing Organization Address [facility] Co de Phone Number [facility] [address] [place] [address] * BUN (01/30/2014 4:59 EDT) BUN 20 10 - 26 mg/dl [facility] Blood specimen (specimen) 01/30/2014 4:59 EDT 01/30/2014 5:07 EDT Preethi SegundoOfferSavvy PA-C CHEMISTRY & BLO OD GAS ORDERABLES Performing Organization Address [facility] de Phone Number [facility] [address] [place] [address] * ELECTROLYTES (01/30/2014 4:59 EDT) Sodium 136 136 - 145 mEq/L [facility] Potassium 4.6 3.5 - 5.0 mEq/L [facility] Chloride 100 96 - 110 mEq/L [facility] CO2 28 24 - 32 mEq/L [facility] Blood specimen (specimen) 01/30/2014 4:59 EDT 01/30/2014 5:07 EDT Preethi Segundoor PA-C CHEMISTRY & BLO OD GAS ORDERABLES Performing Organization Address [facility] de Phone Number [facility] [address] [place] [address] * (ABNORMAL) HEMAGRAM (01/30/2014 4:59 EDT) WBC 7.94 4.0 - 10.4 K/cmm [facility] RBC 4.34(L) 4.36 - 5.78 M/cmm [facility] Hemoglobin 13.2(L) 13.8 - 17.3 gm/dl [facility] HCT 37.6(L) 39.5 - 50.2 % [facility] MCV 87 81 - 95 fl [facility] MCH 30.4 27.6 - 33.0 pg [facility] MCHC 35.1 32.8 - 36.4 gm/dl [facility] PLT 221 141 - 320 K/cmm [facility] RDW-CV 14.4(H) 11.8 - 14.1 % [facility] Blood specimen (specimen) 01/30/2014 4:59 EDT 01/30/2014 5:07 EDT Preethi Packer PA-C HEMATOLOGY & PF 4 ORDERABLES Performing Organization Address [facility] de Phone Number [facility] [address] [place] [address] * (ABNORMAL) GLUCOSE, GLUCOMETER (01/29/2014 21:20 EDT) Glucose, Fingerstick 169(H) 70 - 100 mg/dl [facility] Slot Operations Manager ID [id number] [facility] Comment:Test Performed by [facility] 01/29/2014 21:2 0 EDT 01/29/2014 21:21 EDT Candice Bhatt DO CHEMISTRY & BLOOD G ORDERABLES Performing Organization Address [facility] de Phone Number [facility] [address] [place] [address] * SURGICAL PATHOLOGY (01/29/2014 18:58 EDT) Pathology Report: SURGICAL PATHOLOGY REPORT Reports generated via electronic interface contain original data; however they are lacking the format of the original report. Caution should be taken when reading/interpreti ng unformatted reports. Name: ? RALPH JEONG Justyna ? Accession #: ? [id number] ? : ? 1950 (Age: 63) ??M ? Collect Date: ? 01/29/2014 ? Location: ? B003 ? Receive Date: ? 01/29/2014 ? Provider: CANDICE BHATT DO Copy to: NEETA BARBER MD ? Final Pathologic Diagnosis: PROSTATE, TRANSURETHRAL RESECTION: - ??Nodular glandular and stromal hyperplasia. - ??Focal chronic inflammation and focal atrophy. - ??Benign urethral tissue. Document reviewed and electronically signed by: Juan Stack MD Report ??Date: 02/01/2014 15:31 By the signature above, the attending physician certifies that he/she has personally conducted a gross and/or microscopic examination of the described specimens and rendered or confirmed the above diagnosis. Specimen(s) Received: Prostate chips Clinical History: BPH Gross Description: ? Received in normal saline labelled with proper patient identification (initials H, S) and prostate chips are multiple anaya-mckeon, rubbery, and cauterized soft tissue fragments (12 g, 8.5 x 6.0 x 1.5 cm in aggregate). ??The specimen is submitted entirely in blocks 1-18. Enriqueta Elkins 01/30/2014 09:10 AM End of Report [facility] 01/29/2014 18:5 8 EDT 01/29/2014 18:58 EDT Candice Bhatt DO PATHOLOGY ORDERABLE S [facility] [address] [place] [address] * (ABNORMAL) GLUCOSE, GLUCOMETER (01/29/2014 18:55 EDT) Glucose, Fingerstick 127(H) 70 - 100 mg/dl [facility] Slot Operations Manager ID [id number] [facility] [facility] Comment:Test Performed by [facility] 01/29/2014 18:5 5 EDT 01/29/2014 19:02 EDT Candice Bhatt DO CHEMISTRY & BLOOD G ORDERABLES Performing Organization Address [facility] de Phone Number [facility] [address] [place] [address] * (ABNORMAL) GLUCOSE, GLUCOMETER (01/29/2014 13:33 EDT) Glucose, Fingerstick 115(H) 70 - 100 mg/dl [facility] Slot Operations Manager ID [id number] [facility] Comment:Test Performed by [facility] 01/29/2014 13:3 3 EDT 01/29/2014 13:34 EDT Candice Garcia Perrapato DO CHEMISTRY & BLOOD G ORDERABLES Performing Organization Address [facility] de Phone Number [facility] [address] [place] [address] * (ABNORMAL) GLUCOSE, GLUCOMETER (01/29/2014 11:01 EDT) Glucose, Fingerstick 140(H) 70 - 100 mg/dl [facility] Slot Operations Manager ID [id number] [facility] Comment:OP 01/29/2014 11:0 1 EDT 01/29/2014 11:10 EDT Candice Garcia Perpato DO CHEMISTRY & BLOOD G ORDERABLES Performing Organization Address [facility] de Phone Number [facility] [address] [place] [address] * ECG REPORT - SCANNED (01/25/2014 10:07 EDT) 01/25/2014 10:0 7 EDT Scan 2 Wool Classer PROCEDURE/MINOR KIERSTEN GICAL ORDERABLES documented in this encounter Visit Diagnoses Diagnosis BPH (benign prostatic hypertrophy) with urinary retention Hypertrophy of prostate with urinary obstruction and other lower urinary tract symptoms (LUTS) Hyperlipidemia Other and unspecified hyperlipidemia DM (diabetes mellitus), secondary (HCC-CMS) Secondary diabetes mellitus without mention of complication, not stated as uncontrolled, or unspecified HTN (hypertension) Unspecified essential hypertension BBB (bundle branch block) Bundle branch block, unspecified BPH (benign prostatic hypertrophy) with urinary retention Hypertrophy of prostate with urinary obstruction and other lower urinary tract symptoms (LUTS) Paroxysmal atrial fibrillation (HCC-CMS)- Primary Atrial fibrillation Paroxysmal atrial fibrillation (HCC-CMS) Atrial fibrillation documented in this encounter Administered Medications Inactive Administered Medications - up to 3 most recent administrations Medication Order MAR Action Action Date Dose Rate Site aspirin chewable tablet 81 mg 81 mg, oral, DAILY, First dose on Tue01/29/14 at 1900, Until Discontinued, Routine, On Unit Given 01/30/2014 8:22 EDT 81 mg atorvastatin (LIPITOR) tablet 40 mg 40 mg, oral, DAILY, First dose on Tue01/29/14 at 1900, Until Discontinued, Routine, On Unit Given 01/30/2014 8:22 EDT 40 mg belladonna - opium (B&O SUPPRETTES) 16.2-60 mg suppository 60 mg 60 mg, rectal, EVERY 6 HOURS PRN, Starting on Tue01/29/14 at 1332, Until Tue01/30/14 at 1433, Bladder Spasm, Routine, On Unit Given 01/29/2014 13:45 EDT 60 mg ceFAZolin (ANCEF) 1,000 mg in sodium chloride 0.9 % 50 mL IVPB 1,000 mg, intravenous, Administer over 30 Minutes, EVERY 8 HOURS, 3 doses, First dose on Tue01/29/14 at 1600, Last dose on Tue01/30/14 at 0800, Routine, On Unit Given 01/30/2014 8:21 EDT 1,000 mg Given 01/29/2014 23:27 EDT 1,000 mg Given 01/29/2014 16:21 EDT 1,000 mg ceFAZolin (ANCEF) syringe 2 g 2 g, intravenous, Administer over 10 Minutes, PRE-OP ONCE, 1 dose, On Tue01/29/14 at 1100, Routine, Pre-Op DOS Rx Approved Given by Other 01/29/2014 12:06 EDT 2 g docusate sodium (COLACE) capsule 100 mg 100 mg, oral, 2 TIMES DAILY, First dose on Tue01/29/14 at 2100, Until Discontinued, Routine, On Unit Given 01/30/2014 8:22 EDT 100 mg HYDROmorphone (DILAUDID) tablet 2 mg 2 mg, oral, PRN, 2 doses, Starting on Tue01/29/14 at 1250, Until Tue01/29/14 at 1832, Pain, Routine, Recovery (only) Given 01/29/2014 14:45 EDT 4 mg HYDROmorphone (DILAUDID) tablet 2-4 mg 2-4 mg, oral, EVERY 4 HOURS PRN, Starting on Tue01/29/14 at 1839, Until Tue01/30/14 at 1433, Pain, Routine, On Unit Given 01/30/2014 0:20 EDT 4 mg Given 01/29/2014 20:19 EDT 4 mg HYDROmorphone (PF) (DILAUDID) 1 mg/mL injection 0.2 mg 0.2 mg, intravenous, EVERY 10 MINUTES PRN, Starting on Tue01/29/14 at 1250, Until Tue01/29/14 at 1832, Pain, Routine, Recovery (only) Given 01/29/2014 14:45 EDT 0.3 mg lactated ringers (LR) infusion at 75 mL/hr, intravenous, CONTINUOUS, Starting on Tue01/29/14 at 1315, Until Tue01/29/14 at 1832, Routine, Recovery (only) New Bag 01/29/2014 14:00 EDT 75 mL/hr lactated ringers (LR) infusion 125 mL/hr, intravenous, CONTINUOUS, Starting on Tue01/29/14 at 1100, Until Tue01/29/14 at 1839, Routine, Pre-Op DOS Rx Approved New Bag 01/29/2014 11:03 EDT 125 mL/hr 125 mL/hr lisinopril (PRINIVIL, ZESTRIL) tablet 10 mg 10 mg, oral, DAILY, First dose on Tue01/29/14 at 1900, Until Discontinued, Routine, On Unit Given 01/30/2014 8:22 EDT 10 mg sodium chloride 0.9 % (NS) infusion at 75 mL/hr, intravenous, CONTINUOUS, Starting on Tue01/29/14 at 1400, Until Tue01/30/14 at 1433, Routine, On Unit Rate Documented 01/30/2014 8:21 EDT 75 mL/hr Rate Documented 01/30/2014 2:00 EDT 75 mL/hr Rate Documented 01/30/2014 0:00 EDT 75 mL/hr documented in this encounter Discontinued Medications Medication Sig Discontinue Reason Start Date End Da te naproxen sodium (ALEVE) 220 mg capsule Take 220 mg by mouth as needed. 01/30/2014 aspirin 325 mg tablet Take 650 mg by mouth every 4 hours as needed for Pain. 01/30/2014 documented as of this encounter Historical Medications * This list may reflect changes made after this encounter. Medication Sig Dispensed Refills Start Date End Date naproxen sodium (ALEVE) 220 mg capsule Take 220 mg by mouth as needed. 01/30/2014 aspirin 325 mg tablet Take 650 mg by mouth every 4 hours as needed for Pain. 01/30/2014 added in this encounter Active and Recently Administered Medications Times are shown in EDT. Scheduled Medication Order 01/28/2014 01/29/2014 01/30/2014 aspirin chewable tablet 81 mg (CANCELED) 81 mg, oral, DAILY, First dose on Tue01/29/14 at 1900, Until Discontinued, Routine, On Unit 1852 (Not Given - Provider: Dominga Acevedo RN - Reason: Patient/family refused) 0822 (Given - Provider: Dominga Acevedo RN) atorvastatin (LIPITOR) tablet 40 mg (CANCELED) 40 mg, oral, DAILY, First dose on Tue01/29/14 at 1900, Until Discontinued, Routine, On Unit 1852 (Not Given - Provider: Dominga Acevedo RN - Reason: Patient/family refused) 0822 (Given - Provider: Dominga Acevedo RN) ceFAZolin (ANCEF) 1,000 mg in sodium chloride 0.9 % 50 mL IVPB (COMPLETED) 1,000 mg, intravenous, Administer over 30 Minutes, EVERY 8 HOURS, 3 doses, First dose on Tue01/29/14 at 1600, Last dose on Tue01/30/14 at 0800, Routine, On Unit 1621 (Given - Provider: Radha Deutsch)2327 (Given - Provider: Shira Gay RN) 0821 (Given - Provider: Dominga Acevedo RN) ceFAZolin (ANCEF) syringe 2 g (COMPLETED) 2 g, intravenous, Administer over 10 Minutes, PRE-OP ONCE, 1 dose, On Tue01/29/14 at 1100, Routine, Pre-Op DOS Rx Approved 1100 (Due)1206 (Given by Other - Provider: Lucila Jacob RN - Comment: given in the OR by Dr. Love) docusate sodium (COLACE) capsule 100 mg 100 mg, oral, 2 TIMES DAILY, First dose on Tue01/29/14 at 2100, Until Discontinued, Routine, On Unit 2019 (Not Given - Provider: Shira Gay RN - Reason: Patient/family refused) 0822 (Given - Provider: Dominga Acevedo RN) lisinopril (PRINIVIL, ZESTRIL) tablet 10 mg (CANCELED) 10 mg, oral, DAILY, First dose on Tue01/29/14 at 1900, Until Discontinued, Routine, On Unit 185 (Not Given - Provider: Dominga Acevedo RN - Reason: Patient/family refused) 0822 (Given - Provider: Dominga Acevedo RN) Continuous Medication Order 01/28/2014 01/29/2014 01/30/2014 lactated ringers (LR) infusion (CANCELED) at 75 mL/hr, intravenous, CONTINUOUS, Starting on Tue01/29/14 at 1315, Until Tue01/29/14 at 1832, Routine, Recovery (only) 1400 (New Bag - Provider: Clara Jewell RN)1530 (Completed - Provider: Clara Jewell RN) lactated ringers (LR) infusion (CANCELED) 125 mL/hr, intravenous, CONTINUOUS, Starting on Tue01/29/14 at 1100, Until Tue01/29/14 at 1839, Routine, Pre-Op DOS Rx Approved 1103 (New Bag - Provider: Naila Nava RN)1400 (Completed - Provider: Clara Jewell, ANDRE) sodium chloride 0.9 % (NS) infusion (CANCELED) at 75 mL/hr, intravenous, CONTINUOUS, Starting on Tue01/29/14 at 1400, Until Tue01/30/14 at 1433, Routine, On Unit 1530 (New Bag - Provider: Clara Jewell RN - Comment: via alarodney)1856 (Rate Documented - Provider: Dominga Acevedo RN) 0000 (Rate Documented - Provider: Mary Ann Nunez RN)0200 (Rate Documented - Provider: Mary Ann Nunez RN)0821 (Rate Documented - Provider: Dominga Acevedo, ANDRE)0900 (Completed - Provider: Dominga Acevedo RN) PRN Medication Order 01/28/2014 01/29/2014 01/30/2014 belladonna - opium (B&O SUPPRETTES) 16.2-60 mg suppository 60 mg (CANCELED) 60 mg, rectal, EVERY 6 HOURS PRN, Starting on Tue01/29/14 at 1332, Until Tue01/30/14 at 1433, Bladder Spasm, Routine, On Unit 1345 (Given - Provider: Clara Jewell, ANDRE) HYDROmorphone (DILAUDID) tablet 2 mg (CANCELED) 2 mg, oral, PRN, 2 doses, Starting on Tue01/29/14 at 1250, Until Tue01/29/14 at 1832, Pain, Routine, Recovery (only) 1445 (Given - Provider: Clara Jewell, ANDRE) HYDROmorphone (DILAUDID) tablet 2-4 mg 2-4 mg, oral, EVERY 4 HOURS PRN, Starting on Tue01/29/14 at 1839, Until Tue01/30/14 at 1433, Pain, Routine, On Unit 2019 (Given - Provider: Shira Gay RN) 0020 (Given - Provider: Mary Ann Nunez RN) HYDROmorphone (PF) (DILAUDID) 1 mg/mL injection 0.2 mg (CANCELED) 0.2 mg, intravenous, EVERY 10 MINUTES PRN, Starting on Tue01/29/14 at 1250, Until Tue01/29/14 at 1832, Pain, Routine, Recovery (only) 1445 (Given - Provider: Clara Jewell, ANDRE) documented in this encounter Orders Medications Ordered That Quirino ht Not Have Been Administered Count Last Ordered Date First Ordered Date lidocaine (XYLOCAINE) 2 % jelly 1 4 acetaminophen (TYLENOL) tablet 650 mg 1 aluminum & magnesium hydroxi de-simethicone (MYLANTA-DS) 400-400-40 mg/5 mL suspension 30 mL 1 01/29/2014 atropine 0.1 mg/mL syringe 0.4 mg 1 014 dextrose 50 % solution 12.5 g 1 01/29/2014 diphenhydrAMINE (BENADRYL) e lixir 12.5-25 mg 1 01/29/2014 diphenhydrAMINE (BENADRYL) i njection 6.25 mg 1 01/29/2014 fentaNYL citrate (PF) 50 mcg /mL injection 25 mcg 1 01/29/2014 glucagon (human recombinant) injection 1 mg 1 01/29/2014 HYDROcodone-acetaminophen (N ORCO) 5-325 mg tablet 1-2 Tab 1 01/29/2014 HYDROmorphone (PF) (DILAUDID ) 1 mg/mL injection 0.2-0.4 mg 1 01/29/2014 insulin aspart (NOVOLOG FLEXPEN) injection 1 01/29/2014 magnesium hydroxide (MILK OF MAGNESIA) 400 mg/5 mL suspension 30 mL 1 01/29/2014 meperidine (PF) (DEMEROL) 25 mg/0.5 mL injection 25 mg 1 01/29/2014 metoCLOPramide (REGLAN) injection 10 mg 1 0 01/29/2014 nalOXone (NARCAN) injection 0.2 mg 1 2013 ondansetron (PF) (ZOFRAN) injection 2 mg 1 01/29/2014 ondansetron (PF) (ZOFRAN) injection 2-4 mg 1 01/29/2014 oxyCODONE (ROXICODONE) immed iate release tablet 5 mg 1 01/29/2014 oxyCODONE-acetaminophen (PER COCET) 5-325 mg per tablet 1-2 Tab 1 01/29/2014 prochlorperazine edisylate ( COMPAZINE) injection 5 mg 1 01/29/2014 Diet Count Last Ordered Date First Orde red Date DISCHARGE DIET 2 01/30/2014 Nursing Count Last Ordered Date First Orde red Date ACTIVITY INSTRUCTIONS 1 01/30/2014 BATHING INSTRUCTIONS 2 01/30/2014 WOUND CARE INSTRUCTIONS 2 01/30/2014 APPLY WARMING BLANKET 1 01/29/2014 PATIENT AT LOW RISK FOR VTE: RISK OF PHARMACOLOGIC PROPHYLAXIS OUTWEIG 1 01/29/[address] PLACE SEQUENTIAL COMPRESSION DEVICE 1 01/29 Admission Count Last Ordered Date First Orde red Date STATUS: OUTPATIENT SURGICAL OP BED/SERVICES 1 01/29/2014 Transfer Count Last Ordered Date First Orde red Date NOTIFY PPS OF DISCHARGE COMPLETE 1 01/31/20 14 NOTIFY PPS PATIENT ARRIVAL IN PACU 1 2013 NOTIFY PPS PATIENT TRANSFERRED OUT OF PACU 1 01/29/2014 PPS NOTIFICATION OF PATIENT ARRIVAL ON UNIT 1 01/29/2014 Discharge Count Last Ordered Date First Orde red Date DISCHARGE PATIENT 1 01/30/2014 documented in this encounter Care Teams Real Estate Operations Manager Relationship Specialty Start Date End Date Neeta Barber MD PCP - General 12/07/13 08/25/21 Neeta Barber MD 12/05/13 08/25/21 documented as of this encounter
--- OUTSIDE RECORDS SUMMARY | 2024-03-27 17:28 | XMS_ITS | Encounter Summary ---
Author Organization [facility] Address [address] [place] [address] Care Team Providers Care Carton Gluing Machine Operator Name Role Phone David Barber MD Un[facility] MD Primary Care Provider Unav ailable Reason for Visit * Reason Comments Follow-up pov trial Paperwork request disability Encounter Details Date Type Department Care Team (Late st Contact Info) Description 02/04/2014 9:00 EDT Office Visit [facility] - [facility] [address] [place] [address] David Bhatt, DO [address] [facility], [facility] [address] [place] [phone] BPH (benign prostatic hypertrophy) with urinary retention (Primary Dx) Social History Tobacco Use Types Packs/Day Years Used Date Smoking Tobacco: Never Sex and Gender Information Value Date Recorded Sex Assigned at Not on file Gender Identity Male 08/26/2021 11:28 EST Sexual Orientation Not on file documented as of this encounter Last Filed Vital Signs Vital Sign Reading Time Taken Comments Blood Pressure - - Pulse - - Temperature - - Respiratory Rate - - Oxygen Saturation - - Inhaled Oxygen Concentration - - Weight 97.5 kg (215 lb) 02/04/2014 0923 EDT Height - - Body Mass Index 30 01/29/20142007 EDT documented in this encounter Functional Status [...] 01/30/2014 documented as of this encounter Discharge Diagnoses Diagnosis 600.01 HYPERTROPHY (BENIGN) OF PROSTATE W/URINARY OBSTR LOWER URINARY TRACT SYM (LUTS)[ICD-9-CM] documented in this encounter Progress Notes * David Bhatt, - 02/04/2014 0938 EDT His TURP specimen was BPH with no precancer or cancer changes. He is going to have a trial void today, fall back on CIC, recording residuals, which hopefully will either be low now or get low untile he does not need anymore. Next followup in 1 month. CC: David Barber MD documented in this encounter Plan of Treatment Upcoming Encounters Date Type Department Care Team (Late st Contact Info) Description 04/02/2024 11:15 EDT Telemedicine [facility] - [facility] [address] [place], [place] [phone] David Bhatt DO [address] [facility], [address] [place] [phone] 07/12/2024 12:30 [facility] Hospital Encounter [facility] [address] [place], [place] [phone] Rodrigo Noyola MD [address] [place] [phone] Paroxysmal atrial fibrillation (HCC-CMS) 07/12/2024 12:30 EST - 07/12/2024 17:00 EST Surgery [place] [id number] [facility] [address] [place] [phone] Rodrigo Noyola MD [address] [place] [phone] Bryce Woo [[id number] (CPT??)] 07/23/2024 11:00 EST Office Visit [facility] [address] [place] [id number] Malini Euceda MD [address] [place] [phone] documented as of this encounter Visit Diagnoses Diagnosis BPH (benign prostatic hypertrophy) with urinary retention- Primary Hypertrophy of prostate with urinary obstruction and other lower urinary tract symptoms (LUTS) Paroxysmal atrial fibrillation (HCC-CMS)- Primary Atrial fibrillation Paroxysmal atrial fibrillation (HCC-CMS) Atrial fibrillation documented in this encounter Care Teams Carton Gluing Machine Operator Relationship Specialty Start Date End Date David Barber MD PCP - General 12/07/13 08/25/21 David Barber MD 12/05/13 08/25/21 documented as of this encounter
--- OUTSIDE RECORDS SUMMARY | 2024-03-27 17:28 | XMS_ITS | Encounter Summary ---
Author Organization [facility] Address [address] [place] [address] Care Team Providers Care Structural Worker Name Role Phone KristaJessie Frank Primary Care Provider [phone] Susie Calvo MD Unavailable 2, [facility] Cardiology Unavailable Unavailable Reason for Visit * Reason Comments Chest Pain Pt reports have ches t pressure a dull squezzing since 0130 this morning it woke me from a sleep states my and friend that works at the health center convinced me to come in. Reports he had a breif period of lightheadedness and feeling like I was going to be sick with onset of chest pressure this morning. * Auth/Cert Specialty Diagnoses / Procedures Referred By Contac t Referred To Contact Diagnoses Non-STEMI (non-ST elevated myocardial infarction) ([facility]) NSTEMI (non-ST elevated myocardial infarction) ([facility]) Referral ID Status Reason Start Date Expiration Date Visits Re quested Visits Authorized [id number] 1 1 Encounter Details Date Type Department Care Team (Late st Contact Info) Description 08/26/2021 10:41 EST - 08/26/2021 15:39 EST Emergency [facility] Emergency Department [address] [place] [address] Ld Antunez DO [address] [place] [phone] Jessy Lawrence MBBS [address] [place] [address] Markel Green MD [address] [place] [address] Non-STEMI (non-ST elevated myocardial infarction) (HCC-CMS) (HCC) (Primary Dx) Discharge Disposition: Short Term Hospital Social History Tobacco Use Types Packs/Day Years [...] Sign Reading Time Taken Comments Blood Pressure 161/86 08/26/2021 1331 EST Pulse - - Temperature 36.5 ??C (97.7 ??F) 08/26/2021 1043 EST Respiratory Rate 16 08/26/2021 1400 EST Oxygen Saturation 99% 08/26/2021 1331 EST Inhaled Oxygen Concentration - - Weight 100.3 kg (221 lb 3.2 oz) 08/26/2021 1322 EST Height 180.3 cm (5' 11) 08/26/2021 1322 EST Body Mass Index 30.85 08/26/2021 1322 EST documented in this encounter Functional Status [...] No 08/26/2021 documented as of this encounter Medications at [...] the skin once a week. On Sundays06/12/2020 amLODIPine (NORVASC) 5 mg tabletIndications:hyper tension Take 5 mg by mouth daily. 08/27/2021 aspirin chewable 81 mg tablet Take 81 [...] 90 days. 30 Tablet 2 08/28/2021 09/25/2021 losartan (COZAAR) 50 mg tabletIndications:hyper tension Take 50 mg by mouth daily. 08/27/2021 documented as of this encounter Discharge Disposition Disposition Code Departure Means Destination Short Term Hospital Hospital (Acute Care Facility) documented in this encounter ED Notes * David Banerjee RN - 08/26/2021 1520 EST .David Villalpando RN, notified Jessy Lawrence MBBS;M* on 08/26/2021 at 15:20 of the following critical value: Troponin 0.735 * Geovanna Arellano - 08/26/2021 1502 EST Pt has not had chest pressure since a few moments after arrival. * Komal Greene - 08/26/2021 1433 EST Blood drawn via peripheral IV per protocol, tube(s) sent to lab per order. * Komal Greene - 08/26/2021 1328 EST 12 Lead EKG Performed by Komal Greene and shown to Ld Antunez DO. * Geovanna Arellano - 08/26/2021 1210 EST ..Geovanna Villalpando RN, notified Dr. Antunez of Troponin of 0.289 on 08/26/2021 at 1210. * Ld Antunez DO - 08/26/2021 1052 EST Emergency Department Visit Chief Complaint Chest Pain (Pt reports have chest pressure a dull squezzing since 0130 this morning it woke me from a sleep states my and friend that works at the [facility] convinced me to come in. Reports he had a breif period of lightheadedness and feeling like I was going to be sick with onset of chest pressure this morning. ) Assessment and ED Course Final diagnoses: Non-STEMI (non-ST elevated myocardial infarction) ([facility]) (HCC) 71-year-old male with non-STEMI. See HPI Vital signs stable. Afebrile. Normal pulse ox Exam reassuring EKG showing a sinus rhythm with a right bundle branch block, inverted T waves anterior lateral but unchanged from previous EKG in 2014. Lab profile significant for troponin of 0.289 He remained symptom-free throughout his emergency department course, resting comfortably at time ofreevaluation. Repeat EKG is unchanged. Case discussed with cardiology at [facility]. His transfer is accepted, bed availability hopefully next 24hours. He was treated with aspirin, Case discussed with hospitalist, stable for admission to telemetry on heparin Relevant Data as of Sep 02 1405 Wed Aug 26, 2021 1218 Troponin I(!!): 0.289 [AF] 1218 Magnesium(!): 1.6 [AF] 1218 WBC: 4.52 [AF] 1218 Hemoglobin: 16.4 [AF] 1218 HCT: 48.3 [AF] 1218 PLT: 213 [AF] 1218 Sodium: 141 [AF] 1218 Potassium: 4.7 [AF] 1218 BUN: 19 [AF] 1218 Creatinine(!): 1.26 [AF] 1517 Patient accepted in transfer to [facility] for NSTEMI. [DM] Relevant Data User Index [AF] Ld Antunez DO [DM] Markel Green MD Disposition: Transfered to Another Facility HPI Ralph Garnica is a 71 y.o. male who presents today with Chest Pain (Pt reports have chest pressure a dull squezzing since 0130 this morning it woke me from a sleep states my and friendthat works at the [facility] center convinced me to come in. Reports he had a breif period of lightheadedness and feeling like I was going to be sick with onset of chest pressure this morning. ) 71-year-old male history of hypertension and high cholesterol complaining of chest pressure. Onset around 130 this morning. He states it woke him from sleep. He felt like he might be having some heartburn, he got up to get a glass of water, walk around his house. No associated dyspnea or diaphoresis. He does endorse some mild nausea. No known history of coronary artery disease. He did have a stress test he believes in 2013 preceding an orthopedic surgery. Reports a stress test was abnormal and he was referred for heart catheterization. No coronary disease was identified on his heart cath. No follow-up stress testing since that time. No fevers or chills, URI symptoms. Symptoms lasted approximate hour and a half and resolved spontaneously. Asymptomatic at the time ofhistory and exam. Data reviewed this visit: The patient's past medical, family and social history was reviewed and updated as needed. Allergies: No Known Allergies Review of Systems Review of Systems All other systems reviewed and are negative. - see HPI Physical Exam Vital Signs Vitals Reassessment?: Yes Temp: 36.5 ??C (97.7 ??F) Temp src: Oral Heart Rate: 64 BPM Resp: 16 SpO2: 99 % Pulse From Oximetry: 64 BPM BP: (!) 161/86 BP MAP: 131 mm Hg O2 Device: None (Room air) Body mass index is 30.85 kg/m??. A medical screening exam was performed. Physical Exam Vitals and nursing note reviewed. Constitutional: General: He is not in acute distress. Appearance: He is well-developed and well-nourished. HENT: Nose: Nose normal. No nasal discharge. Mouth/Throat: Mouth: Mucous membranes are moist. Pharynx: Oropharynx is clear. Eyes: Extraocular Movements: EOM normal. Conjunctiva/sclera: Conjunctivae normal. Pupils: Pupils are equal, round, and reactive to light. Cardiovascular: Rate and Rhythm: Normal rate and regular rhythm. Heart sounds: Normal heart sounds. Pulmonary: Effort: Pulmonary effort is normal. No respiratory distress. Breath sounds: Normal breath sounds. Abdominal: General: Bowel sounds are normal. Palpations: Abdomen is soft. Tenderness: There is no abdominal tenderness. Musculoskeletal: General: Normal range of motion. Cervical back: Normal range of motion and neck supple. Skin: General: Skin is warm and dry. Neurological: Mental Status: He is alert and oriented to person, place, and time. Cranial Nerves: No cranial nerve deficit. Psychiatric: Mood and Affect: Mood and affect normal. Results EKG orders: EKG 12-LEAD EKG 12-LEAD ECG Reviewed: Findings include: Sinus rhythm rate of 68. Normal axis. Normal CA and QT intervals. Right bundle branch block. Nonspecific T wave inversions throughout the anterior and lateral leads, conduction delay and T wave inversions unchanged from EKG of January 2014. No acute ischemic changes.}. The study has been independently viewed by me. The study has been interpreted independently and contemporaneously by me. The EKG appears to be a good tracing. Attending hand plate stacker not immediately available for acute interpretation. Radiology orders: XR CHEST 2 VIEWS Procedures Procedures MDM 09/02/2021 14:05 * Komal Greene - 08/26/2021 1048 EST 12 Lead EKG Performed by Komal Greene and shown to Ld Antunez DO. * Geovanna Arellano - 08/26/2021 1045 EST Pt states I don't have that pressure anymore referring to his chest pressure documented in this encounter Plan of Treatment Upcoming Encounters Date Type Department Care Team (Late st Contact Info) Description 04/02/2024 11:15 EDT Telemedicine [facility] Urology - [facility] [address] [place], [place] [phone] David Bhatt DO [address] [facility], [address] [place] [phone] 07/12/2024 12:30 EST Hospital Encounter [place] [address] [facility] [address] [place], [place] [phone] Rodrigo Noyola MD [address] [facility], [address] [place] [address] Paroxysmal atrial fibrillation (HCC-CMS) 07/12/2024 12:30 EST - 07/12/2024 17:00 EST Surgery [place] [address] [facility] [address] [place], [place] [phone] Rodrigo Noyola MD [address] [phone] Albation A-Fib [63568 (CPT??)] 07/23/2024 11:00 EST Office Visit [facility] [address] [place], [place] [phone] Malini Euceda MD [address] [phone] documented as of this encounter Procedures Procedure Name Priority Date/Time Associated Diagnosis Comments ECG REPORT - SCANNED 08/26/2021 23:43 EST ECG REPORT - SCANNED 08/26/2021 20:50 EST TROPONIN I Routine 08/26/2021 14:30 EST COMPLETE BLOOD COUNT Routine 08/26/2021 14:09 EST ZZCOVID-19 TESTING ([facility], [facility] Routine 08/26/2021 14:05 EST ZZCOVID-19 [facility] (TESTING ONLY) Today 08/26/2021 14:05 EST EKG 12-LEAD STAT 08/26/2021 13:26 EST XR CHEST 2 VIEWS STAT 08/26/2021 11:3 4 EST HOLD BLUE TOP STAT 08/26/2021 10:57 EST TROPONIN I STAT 08/26/2021 10:57 EST COMPLETE BLOOD COUNT AND DIFFERENTIAL STAT 08/26/2021 10:57 EST MAGNESIUM STAT 08/26/2021 10:57 EST COMPREHENSIVE METABOLIC PANEL (CMP) STAT 08/26/2021 10:57 EST EKG 12-LEAD STAT 08/26/2021 10:45 EST documented in this encounter Results * ECG REPORT - SCANNED (08/26/2021 23:43 EST) 08/26/2021 23:4 3 EST Scan 2 Personnel Arbitrator PROCEDURE/MINOR KIERSTEN GICAL ORDERABLES * ECG REPORT - SCANNED (08/26/2021 20:50 EST) 08/26/2021 20:5 0 EST Scan 2 Personnel Arbitrator PROCEDURE/MINOR KIERSTEN GICAL ORDERABLES * (ABNORMAL) TROPONIN I (08/26/2021 14:30 EST) Troponin I (ng/mL) 0.735(HH) <0.034 ng/mL 08/26/2021 15:21 EST [facility] Blood VENOUS BLOOD / Unknown Venipuncture / Unknown 08/26/2021 14:30 EST 08/26/2021 14:37 EST Narrative [facility] - 08/26/2021 15:21 EST The results of this assay can be falsely lowered due to the consumption of Biotin. Jessy GARCIA CHEMISTRY & BLOOD G ORDERABLES [facility] [address] [place] [address] * (ABNORMAL) COMPLETE BLOOD COUNT (08/26/2021 14:09 EST) WBC 4.30 4.00 - 10.40 K/cmm 08/26/2021 14:16 EST [facility] RBC 4.89 4.36 - 5.78 M/cmm 08/26/2021 14:16 [facility] Hemoglobin 15.1 13.8 - 17.3 gm/dL 08/26/2021 14:16 [facility] HCT 43.5 39.5 - 50.2 % 08/26/2021 14:16 [facility] MCV 89 81 - 95 fl 08/26/2021 14:16 [facility] MCH 30.9 27.6 - 33.0 pg 08/26/2021 14:16 [facility] MCHC 34.7 32.8 - 36.4 gm/dL 08/26/2021 14:16 [facility] RDW-CV 12.2 <14.2 % 08/26/2021 14:16 [facility] RDW-SD 40.0 <46.0 fl 08/26/2021 14:16 [facility] PLT 194 141 - 377 K/cmm 08/26/2021 14:16 [facility] MPV 9.2(L) 9.5 - 12.7 fl 08/26/2021 14:16 [facility] Blood VENOUS BLOOD / Unknown Venipuncture / Unknown 08/26/2021 14:09 EST 08/26/2021 14:11 EST Ld Antunez DO HEMATOLOGY & PF4 ORD ERABLES Performing Organization Address City/State/[facility] Co de Phone Number [facility] [address] [place] [address] * COVID-19 [facility] (TESTING ONLY) (08/26/2021 14:05 EST) COVID-19 rt-PCR Result Negative Negative 08/26/2021 15:13 [facility] Comment: This test has not been FDA cleared or approved. This test has been authorized by FDA under an EUA for use by authorized laboratories. This test has been authorized only for detection of nucleic acid from 2018-, not for any other viruses or pathogens. This test is only authorized for the duration of the declaration that circumstances exist justifying the authorization of emergency use of in vitro diagnostic tests for detection and/or diagnosis of 2019-nCoV under section 564(b)(1) of Act, 21 U.S.C ?? 360bbb-3(b) (1), unless the authorization is terminated or revoked sooner. Performed on the [employer] GeneXpert Instrument The 2019 novel coronavirus (SARS-CoV-2) target nucleic acids are not detected. Swab ENTIRE NASOPHARYNX / Unknown Swab / Unknown 08/26/2021 14:05 EST 08/26/2021 14:12 EST Ld Antunez DO MICROBIOLOGY - GENER AL ORDERABLES Performing Organization Address City/[facility]/ZIP Co de Phone Number [facility] [address] [place] [address] * COVID-19 TESTING ([facility], [facility], ) (08/26/2021 14:05 EST) Performing Lab [facility] Hospital Lab 08/26/2021 14:21 EST [facility] Swab ENTIRE NASOPHARYNX / Unknown Swab / Unknown 08/26/2021 14:05 EST 08/26/2021 14:12 EST Ld Antunez DO MICROBIOLOGY - GENER AL ORDERABLES Performing Organization Address [facility] Co de Phone Number [facility] [address] [place] [address] * EKG 12-LEAD (08/26/2021 13:26 EST) 08/26/2021 13:2 6 EST Narrative [facility]ANY - 08/26/2021 23:36 EST ? [facility] ? Test Date: ?2021-08-26 Pat Name: ? RALPH GARNICA ?Department: ? Room: ? A02 Gender: ? Male ? Cad Intern: ?? RG : ?1950 ? Requested By: CRYSTAL ENRIQUEZ Order Number: [id number] ? Reading MD: ?? BRINDA KILPATRICK MD ? Measurements Intervals ?[place] ? Rate: ? 66 ? P: ?56 CA: ? 188 ?QRS: ?-18 QRSD: ? 146 ?T: ?263 QT: ? 420 ? QTc: ?440 ? Interpretive Statements Sinus rhythm with marked sinus arrhythmia Right bundle branch block T wave abnormality, nonsp. Compared to ECG 08/26/2021 10:45:05 No significant changes I reviewed the tracing and have either agreed or edited the findings in this report. Electronically Signed On 08-26-2021 23:36:56 EST by BRINDA KILPATRICK MD. Procedure Note Brinda Kilpatrick MD - 08/26/2021 [facility] Test Date: 2021-08-26 Pat Name: RALPH GARNICA Department: Room: 2 Gender: Male Cad Intern: ZOILA : 1950 Requested By: CRYSTAL ENRIQUEZ Order Number: [id number] Reading MD: BRINDA KILPATRICK MD Measurements Intervals [place] Rate: 66 P: 56 CA: 188 QRS: -18 QRSD: 146 T: 263 QT: 420 QTc: 440 Interpretive Statements Sinus rhythm with marked sinus arrhythmia Right bundle branch block T wave abnormality, nonsp. Compared to ECG 08/26/2021 10:45:05 No significant changes I reviewed the tracing and have either agreed or edited the findings inthis report. Electronically Signed On 08-26-2021 23:36:56 EST by HUBERT WETZEL. Ld Antunez DO CARDIAC ECG ORDERABL ES [facility] * XR CHEST 2 VIEWS (08/26/2021 11:34 EST) Anatomical Region Laterality Modality Computed Radiogr aphy 08/26/2021 11:5 8 EST Impressions 08/26/2021 11:58 EST No acute cardiopulmonary process. Narrative 08/26/2021 11:58 EST XR CHEST 2 VIEWS ?? Signs and Symptoms/Comments: ??Chest pain. Comparisons: None. FINDINGS: Chest: PA and lateral views were performed, including a follow-up PA view with nipple markers. Lungs: Lungs clear. Bilateral nipple shadows are incidentally noted. Pleura: No pneumothorax or pleural effusion identified. Mediastinum: Unremarkable. Bones: Moderate multilevel thoracic spondylosis. Procedure Note Jean Claude Carter MD - 08/26/2021 XR CHEST 2 VIEWS Signs and Symptoms/Comments: Chest pain. Comparisons: None. FINDINGS: Chest: PA and lateral views were performed, including a follow-up PA viewwith nipple markers. Lungs: Lungs clear. Bilateral nipple shadows are incidentally noted. Pleura: No pneumothorax or pleural effusion identified. Mediastinum: Unremarkable. Bones: Moderate multilevel thoracic spondylosis. IMPRESSION No acute cardiopulmonary process. Ld Antunez DO IMG DIAGNOSTIC IMAGI NG ORDERABLES * HOLD BLUE TOP (08/26/2021 10:57 EST) Hold Hold 08/26/2021 12:15 EST [facility] Blood VENOUS BLOOD / Unknown Venipuncture / Unknown 08/26/2021 10:57 EST 08/26/2021 11:02 EST Ld Antunez DO LAB INFO SERVICE AND SUPPORT & PHONE RESULT Performing Organization Address City/[facility]/ZIP Co de Phone Number [facility] [address] [place] [address] * (ABNORMAL) TROPONIN I (08/26/2021 10:57 EST) Troponin I (ng/mL) 0.289(HH) <0.034 ng/mL 08/26/2021 12:08 EST [facility] Blood VENOUS BLOOD / Unknown Venipuncture / Unknown 08/26/2021 10:57 EST 08/26/2021 11:02 EST Narrative [facility] - 08/26/2021 12:08 EST The results of this assay can be falsely lowered due to the consumption of Biotin. Ld Antunez DO CHEMISTRY & BLOOD GA S ORDERABLES Performing Organization Address City/[facility]/ZIP Co de Phone Number [facility] [address] [place] [address] * (ABNORMAL) MAGNESIUM (08/26/2021 10:57 EST) Magnesium 1.6(L) 1.7 - 2.8 mg/dL 08/26/2021 11:26 [facility] Blood VENOUS BLOOD / Unknown Venipuncture / Unknown 08/26/2021 10:57 EST 08/26/2021 11:02 EST Ld Antunez DO CHEMISTRY & BLOOD GA S ORDERABLES [facility] [address] [place] [address] * (ABNORMAL) COMPREHENSIVE METABOLIC PANEL (CMP) (08/26/2021 10:57 EST) Pathologist [facility] Sodium 141 136 - 145 mmol/L 08/26/2021 11:26 [facility] Potassium 4.7 3.5 - 5.0 mmol/L 08/26/2021 11:26 [facility] Chloride 101 96 - 110 mmol/L 08/26/2021 11:26 [facility] CO2 Total 30 22 - 32 mmol/L 08/26/2021 11:26 [facility] Glucose 127(H) 70 - 100 mg/dL 08/26/2021 11:26 [facility] BUN 19 10 - 26 mg/dL 08/26/2021 11:26 [facility] Creatinine 1.26(H) 0.66 - 1.25 mg/dL 08/26/2021 11:26 [facility] eGFR 57(L) >60 mL/min/1.7 3m2 08/26/2021 11:26 [facility] Total Protein 7.4 6.3 - 8.2 g/dL 08/26/2021 11:26 [facility] Albumin 4.8 3.4 - 4.9 g/dL 08/26/2021 11:26 [facility] Alkaline Phosphatase 101 38 - 126 U/L 08/26/2021 11:26 [facility] AST 27 15 - 46 U/L 08/26/2021 11:26 [facility] ALT 22 <50 U/L 08/26/2021 11:26 [facility] Bilirubin, Total 0.6 <1.4 mg/dL 08/26/20 11:26 [facility] Calcium 10.1 8.5 - 10.5 mg/dL 08/26/2021 11:26 [facility] Albumin/Globulin Ratio 1.8 1.0 - 2.5 08/26/2021 11:26 [facility] Anion Gap 10 8 - 16 08/26/2021 11:26 [facility] Blood VENOUS BLOOD / Unknown Venipuncture / Unknown 08/26/2021 10:57 EST 08/26/2021 11:02 EST Ld Antunez DO CHEMISTRY & BLOOD GA S ORDERABLES Performing Organization Address City/State/[facility] Co de Phone Number [facility] [address] [place] [address] * (ABNORMAL) COMPLETE BLOOD COUNT AND DIFFERENTIAL (08/26/2021 10:57 EST) WBC 4.52 4.00 - 10.40 K/cmm 08/26/2021 11:11 [facility] RBC 5.41 4.36 - 5.78 M/cmm 08/26/2021 11:11 [facility] Hemoglobin 16.4 13.8 - 17.3 gm/dL 08/26/2021 11:11 [facility] HCT 48.3 39.5 - 50.2 % 08/26/2021 11:11 [facility] MCV 89 81 - 95 fl 08/26/2021 11:11 [facility] MCH 30.3 27.6 - 33.0 pg 08/26/2021 11:11 [facility] MCHC 34.0 32.8 - 36.4 gm/dL 08/26/2021 11:11 [facility] RDW-CV 12.3 <14.2 % 08/26/2021 11:11 [facility] RDW-SD 40.1 <46.0 fl 08/26/2021 11:11 [facility] PLT 213 141 - 377 K/cmm 08/26/2021 11:11 [facility] MPV 9.2(L) 9.5 - 12.7 fl 08/26/2021 11:11 [facility] % Neutrophils 66.8 % 08/26/2021 11:11 [facility] % Lymphocytes 21.5 % 08/26/2021 11:11 [facility] % Monocytes 8.6 % 08/26/2021 11:11 [facility] % Eosinophils 2.2 % 08/26/2021 11:11 [facility] % Basophils 0.7 % 08/26/2021 11:11 [facility] % Immature Grans 0.2 % 08/26/20 11:11 [facility] Absolute Neutrophils 3.02 2.20 - 8.85 K/cmm 08/26/2021 11:11 [facility] Absolute Lymphocytes 0.97(L) 1.09 - 3.30 K/cmm 08/26/2021 11:11 [facility] Absolute Monocytes 0.39 0.10 - 0.80 K/cmm 08/26/2021 11:11 [facility] Absolute Eosinophils 0.10 0.03 - 0.61 K/cmm 08/26/2021 11:11 [facility] ABS Basophils 0.03 0.01 - 0.11 K/cmm 08/26/2021 11:11 [facility] Absolute Immature Grans 0.01 0.00 - 0.06 K/cmm 08/26/2021 11:11 [facility] Type of Differential: Auto 08/26/2021 11:11 [facility] Blood VENOUS BLOOD / Unknown Venipuncture / Unknown 08/26/2021 10:57 EST 08/26/2021 11:02 EST Ld Felsted DO PACKAGES & DNA PROBE ORDERABLES [facility] [address] [place] [address] * EKG 12-LEAD (08/26/2021 10:45 EST) 08/26/2021 10:4 5 EST Narrative [facility] - 08/26/2021 11:01 EST ? [facility] ? Test Date: ?2021-08-26 Pat Name: ? RALPH GARNICA ?Department: ? Room: ? Gender: ? Male ? Cad Intern: ?? RG : ?1950 ? Requested By: LUIS ARMANDO Friend Order Number: [id number] ? Reading : ?? OZZY TORRES MD ? Measurements Intervals ?[place] ? Rate: ? 68 ? P: ?60 CA: ? 186 ?QRS: ?-24 QRSD: ? 148 ?T: ?53 QT: ? 420 ? QTc: ?446 ? Interpretive Statements Sinus rhythm with marked sinus arrhythmia Right bundle branch block I reviewed the tracing and have either agreed or edited the findings in this report. Electronically Signed On 08-26-2021 11:01:14 EST by OZZY TORRES MD. Procedure Note Ozzy Torres MD - 08/26/2021 [facility] Test Date: 2021-08-26 Pat Name: RALPH GARNICA Department: Room: Gender: Male Cad Intern: ZOILA : 1950 Requested By: LUIS ARMANDO Friend Order Number: [id number] Reading MD: OZZY TORRES MD Measurements Intervals [place] Rate: 68 P: 60 CA: 186 QRS: -24 QRSD: 148 T: 53 QT: 420 QTc: 446 Interpretive Statements Sinus rhythm with marked sinus arrhythmia Right bundle branch block I reviewed the tracing and have either agreed or edited the findings inthis report. Electronically Signed On 08-26-2021 11:01:14 EST by OZZY CHRISTENSEN. Ld Antunez DO CARDIAC ECG ORDERABL ES [facility] EP[facility] documented in this encounter Visit Diagnoses Diagnosis Non-STEMI (non-ST elevated myocardial infarction) ([facility]) Acute myocardial infarction, subendocardial infarction, episode of care unspecified NSTEMI (non-ST elevated myocardial infarction) ([facility]) Acute myocardial infarction, subendocardial infarction, episode of care unspecified Hyperlipidemia Other and unspecified hyperlipidemia DM (diabetes mellitus), secondary ([facility]) ([facility]) Secondary diabetes mellitus without mention of complication, not stated as uncontrolled, or unspecified HTN (hypertension) Unspecified essential hypertension Benign prostatic hyperplasia with urinary retention BBB (bundle branch block) Bundle branch block, unspecified Paroxysmal atrial fibrillation ([facility])- Primary Atrial fibrillation Paroxysmal atrial fibrillation ([facility]) Atrial fibrillation documented in this encounter Admitting Diagnoses Diagnosis NSTEMI (non-ST elevated myocardial infarction) ([facility]) Acute myocardial infarction, subendocardial infarction, episode of care unspecified documented in this encounter Administered Medications Inactive Administered Medications - up to 3 most recent administrations Medication Order MAR Action Action Date Dose Rate Site aspirin chewable tablet 324 mg 324 mg, oral, NOW X1, 1 dose, On Tue08/26/21 at 1245, STAT Given 08/26/2021 12:40 EST 324 mg heparin in D5W 25,000 unit/250 mL(100 unit/mL) infusion 15 Units/kg/hr ? 85.3 kg Adjusted weight (12.795 mL/hr, rounded to 13 mL/hr), intravenous, CONTINUOUS, Starting on Tue08/26/21 at 1415, Until Tue08/26/21 at 1625, STAT New Bag 08/26/2021 14:31 EST 15 Units/kg/hr 13 mL/hr heparin injection 3,000 Units 3,000 Units (rounded from 2,985.5 Units = 35 Units/kg ? 85.3 kg Adjusted weight), intravenous, PRN, Starting on Tue08/26/21 at 1357, Until Tue08/26/21 at 1625, Other, Per Heparin Protocol, Routine heparin injection 5,950 Units 5,950 Units (rounded from 5,971 Units = 70 Units/kg ? 85.3 kg Adjusted weight), intravenous, NOW X1, 1 dose, On Tue08/26/21 at 1415, STAT Given 08/26/2021 14:31 EST 5,950 Units heparin injection 5,950 Units 5,950 Units (rounded from 5,971 Units = 70 Units/kg ? 85.3 kg Adjusted weight), intravenous, PRN, Starting on Tue08/26/21 at 1357, Until Tue08/26/21 at 1625, Other, Per Heparin Protocol, Routine documented in this encounter Discontinued Medications Medication Sig Discontinue Reason Start Date End Da te metFORMIN (GLUCOPHAGE) 500 mg tablet Take 1,000 mg by mouth 2 times daily. Take 1 tablet in the morning and 1/2 tablet in the evening. Dose adjustment 08/26/2021 documented as of this encounter Historical Medications * This list may reflect changes made after this encounter. Medication Sig Dispensed Refills Start Date End Date metFORMIN (GLUCOPHAGE) 1,000 mg tabletIndications:type 2 diabetes mellitus Take 0.5 Tablets by mouth every evening. metFORMIN (GLUCOPHAGE) 1,000 mg tabletIndications:type 2 diabetes mellitus Take 1 Tablet by mouth every morning. amLODIPine (NORVASC) 5 mg tabletIndications:hypert ension Take 5 mg by mouth daily. 08/27/2021 added in this encounter Active and Recently Administered Medications Times are shown in EST. Scheduled Medication Order 08/24/2021 08/25/2021 08/26/2021 aspirin chewable tablet 324 mg (COMPLETED) 324 mg, oral, NOW X1, 1 dose, On Tue08/26/21 at 1245, STAT 1240 (Given - Provid er: [facility]) heparin injection 5,950 Units (COMPLETED) 5,950 Units (rounded from 5,971 Units = 70 Units/kg ? 85.3 kg Adjusted weight), intravenous, NOW X1, 1 dose, On Tue08/26/21 at 1415, STAT 1431 (Given - Provid er: [facility]) Continuous Medication Order 08/24/2021 08/25/2021 08/26/2021 heparin in D5W 25,000 unit/250 mL(100 unit/mL) infusion 15 Units/kg/hr ? 85.3 kg Adjusted weight (12.795 mL/hr, rounded to 13 mL/hr), intravenous, CONTINUOUS, Starting on Tue08/26/21 at 1415, Until Tue08/26/21 at 1625, STAT 1431 (New Bag - Prov ider: [facility]) PRN Medication Order 08/24/2021 08/25/2021 08/26/2021 heparin injection 3,000 Units(Linked Group 1) 3,000 Units (rounded from 2,985.5 Units = 35 Units/kg ? 85.3 kg Adjusted weight), intravenous, PRN, Starting on Tue08/26/21 at 1357, Until Tue08/26/21 at 1625, Other, Per Heparin Protocol, Routine heparin injection 5,950 Units(Linked Group 1) 5,950 Units (rounded from 5,971 Units = 70 Units/kg ? 85.3 kg Adjusted weight), intravenous, PRN, Starting on Tue08/26/21 at 1357, Until Tue08/26/21 at 1625, Other, Per Heparin Protocol, Routine nitroglycerin (NITROSTAT) SL tablet 0.4 mg 0.4 mg, sublingual, EVERY 5 MIN PRN, 3 doses, Starting on Tue08/26/21 at 1405, Until Tue08/26/21 at 1625, Chest Pain, Routine, Release Linked Groups Order Group 1: heparin injection 5,950 UnitsJump to med 5,950 Units (rounded from 5,971 Units = 70 Units/kg ? 85.3 kg Adjusted weight), intravenous, PRN, Starting on Tue08/26/21 at 1357, Until Tue08/26/21 at 1625, Other, Per Heparin Protocol, Routine Or heparin injection 3,000 UnitsJump to med 3,000 Units (rounded from 2,985.5 Units = 35 Units/kg ? 85.3 kg Adjusted weight), intravenous, PRN, Starting on Tue08/26/21 at 1357, Until Tue08/26/21 at 1625, Other, Per Heparin Protocol, Routine documented in this encounter Orders Medications Ordered That Quirino ht Not Have Been Administered Count Last Ordered Date First Ordered Date heparin injection 3,000 Units 1 08/26/2021 heparin injection 5,950 Units 1 08/26/2021 nitroglycerin (NITROSTAT) SL tablet 0.4 mg 1 08/26/2021 Nursing Count Last Ordered Date First Orde red Date CALL HOSPITALIST FOR ADM/REF [facility] TO [facility] NURSE 1 08/26/2021 CALL TRANSFER [facility] 1 08/26/2021 Transfer Count Last Ordered Date First Orde red Date ED BED REQUEST 1 08/26/2021 documented in this encounter Care Teams Structural Worker Relationship Specialty Start Date End Date Jessie Velasco [address] [place] [address] PCP - General Internal Medicine - Primary Care 08/26/21 Susie Calvo MD [address] [place] [id number] Resident Internal Medicine - Primary Care 08/26/21 08/26/21 2, Med Cardiology [address] [place] [address] Care Team 08/26/21 08/26/21 documented as of this encounter
--- OUTSIDE RECORDS SUMMARY | 2024-03-27 17:28 | XMS_ITS | Encounter Summary ---
Author Organization [facility] Address [address] [place] [address] Care Team Providers Care C2 Tactical Analysis Technician Name Role Phone MercyrosieJessie Frank Primary Care Provider Susie Calvo MD Unavailable [phone], [facility] Cardiology Unavailable Unavailable Encounter Details Date Type Department Care Team (Late st Contact Info) Description 08/26/2021 16:25 EST - 08/27/2021 19:24 EST Hospital Encounter [facility] Cardiac Unit [address] [place], [place] [id number] Edgar Lopez MD [address] [place] [address] [place] [phone] Markel Elder MD [address] [facility], Level 1 [place] [phone] NSTEMI (non-ST elevated myocardial infarction) (HCC-CMS) ([facility]) (Primary Dx) Discharge Disposition: Home or Self [...] Sign Reading Time Taken Comments Blood Pressure 116/59 08/27/2021 1737 EST Pulse - - Temperature 36.4 ??C (97.5 ??F) 08/27/2021 1325 EST Respiratory Rate 16 08/27/2021 1325 EST Oxygen Saturation 97% 08/27/2021 1632 EST Inhaled Oxygen Concentration - - Weight 100.3 kg (221 lb 1.9 oz) 08/27/2021 1602 EST Height 180.3 cm (5' 10.98) 08/27/2021 1602 EST Body Mass Index 30.85 08/27/2021 1602 [...] Admitting Diagnosis: NSTEMI (non-ST elevated myocardial infarction) (HCC-CMS) ([facility]) Final Hospital Diagnosis: NSTEMI Additional Problems Managed in the Hospital Active Hospital Problems Diagnosis Date Noted ??? *NSTEMI (non-ST elevated myocardial infarction) (HCC-CMS) ([facility]) 08/26/2021 Resolved Hospital Problems No resolved problems to display. Principal Procedure: [facility] Date: 08/27/21 Diagnostic Cardiac Study Results Left [...] T2DM, HTN, and HLD who presented to [facility] as a transfer [place] [facility] [place] to [place] ?? He reports that he had been in his usual state of health when he awoke from sleep the morning of admission with severe left-sided substernal chest pressure. This persisted for several hours, and at the recommendation of his and a nurse at his PCP office, presented to the hospital for further evaluation. ?? At [facility], he was found to have a troponin of 0.289, which up trended to 0.735 on recheck. Other labsthere were notable for a creatinine of 1.26 (baseline 1.2 many years ago), and a normal CBC. EKG showed sinus arrhythmia, T wave inversions in leads I, II, and V1 through V6, as well as a right bundle branch block. ?? He was transferred to [facility] for further care. Upon arrival, pt was [...] back amlodipine for anti-anginal effect - hold SYNTHETIC PLASTERER losartan -- would restart if bp allows, held on discharge given systolics in 110s Allergies and Immunizations No Known Allergies Immunization History Administered Date(s) Administered ??? Covid-19 mRNA Vaccine ([employer] COVID-19) PF 0.3 ml IM (12 yrs+) [...] up with one of our Cardiologists at [facility]. If [facility] within a week or [...] in this encounter Progress Notes * Little Wu RN - 08/27/2021 3633 EST Chart review completed and discussed the [...] accessing necessary care and/or follow-up after discharge. mixer slagman/Beam Dyer Operator will continue to follow patient's progress and remain available if situation changes for coordination of care, psychosocial support and/or discharge planning. Patient is s/p LHC without intervention. Potential d/c later today. Little Wu RN ACM #[id number] * Janes Harris MD - 08/27/2021 0635 [...] 1 event. Symptomatic with chest pressure. - [facility] today - telemetry monitoring class I - trend troponin q8h until peak - ASA 325mg loaded at OSH, cont 81mg daily - heparin gtt per protocol - atorvastatin 80mg daily (increased from SYNTHETIC PLASTERER 40mg daily) - NPO for [facility] - ordered lipid profile and A1c - echo ordered - replete if Mg <2 or K <4 - Goal SBP <140 and HR <70 ?? Hyperlipidemia/CAD: Lipids ordered - increase SYNTHETIC PLASTERER atorvastatin to 80mg daily ?? Type 2 Diabetes: A1c ordered - Consistent carbohydrate diet - POCT Glc before meals and qhs - aspart SSI ?? Hypertension: Goal BP: <140/90 -- start carvedilol 6.125 mg BID -- hold SYNTHETIC PLASTERER amlodipine VTE Prophylaxis Hep gtt Discharge Plan [...] T2DM, HTN, and HLD who presented to [facility] as a transfer from [facility] [place] to [place] He reports that he had been in his usual state of health when he awoke from sleep the morning of admission with severe left-sided substernal chest pressure. This persisted for several hours, and at the recommendation of his and a nurse at his PCP office, presented to the hospital for further evaluation. At [facility], he was found to have a troponin of 0.289, which up trended to 0.735 on recheck. Other labsthere were notable for a creatinine of 1.26 (baseline 1.2 many years ago), and a normal CBC. EKG showed sinus arrhythmia, T wave inversions in leads I, II, and V1 through V6, as well as a right bundle branch block. He was transferred to [facility] for further care. Upon arrival, pt was [...] findings noted in HPI. Prior Cardiac History: [facility] in 2005 with no significant disease Cardiac risk factors: CAD: none known Smoking: none HTN: yes DM: yes Family history: none known HLD: yes Social History: Mr. Garnica lives independently in [place] with his . 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 [...] insulin, Hypertension, and Hyperlipidemia. He presents to [facility] as a transfer from [facility] [place] to [place]. Admitted to cardiology for ischemic evaluation. Plan NSTEMI: high suspicion for type 1 event. Symptomatic with chest pressure. - admit with telemetry monitoring class I - trend troponin q8h until peak - ASA 325mg loaded at OSH, then 81mg daily - heparin gtt per protocol - atorvastatin 80mg daily (increased from SYNTHETIC PLASTERER 40mg daily) - NPO at midnight for [facility] - ordered lipid profile and A1c - echo ordered - replete if Mg <2 or K <4 - Goal SBP <140 and HR <70 Hyperlipidemia/CAD: Lipids ordered - increase SYNTHETIC PLASTERER atorvastatin to 80mg daily Type 2 Diabetes: A1c ordered - Consistent carbohydrate diet - POCT Glc before meals and qhs - aspart SSI Hypertension: Goal BP: <140/90 -- start carvedilol 6.125 mg BID -- hold SYNTHETIC PLASTERER amlodipine Diet: cardiac diet VTE Prophylaxis: heparin gtt Consults: none CODE STATUS: full Admission Status Observation. Anticipated duration of hospitalization is less than two midnights. Susie Calvo MD 08/26/21 19:11 PGY-2 Internal Medicine Pager [phone] & Cortext Attestation Statement: I have seen and evaluated the patient. I agree with assessment and plan as documented. Markel Elder MD documented in this encounter Procedure Notes * Jess Franco MD - 08/27/2021 1304 EST Cardiovascular Catheterization [...] artery Procedure: He was brought to [facility] Cardiac Catheterization Laboratory for the procedure: [...] procedural complication required) Jess Franco MD PagerNumber: [phone] 08/27/2021 13:04 documented in this encounter Miscellaneous [...] at 1900. Pt is a transfer from [facility] [place] due to NSTEMI and severe [...] therapeutic. Plan is for pt to receive [facility] this AM. A: Pt assessed and medicated [...] of Care - Fabian Ho RN - 08/26/20211849 EST Problem: Daily Care Plan Goals Goal: Care Plan Documentation Outcome: Met This Shift Flowsheets (Taken 08/26/2021 1632) Area of Focus: Circulatory Status Goal This Shift: Pt stable without cp Data: Assumed care of pt at 1600. Pt admit for chest tightness as an admit from [facility]. SA with RBBB on tele. No c/o [...] comfortably with call bellin reach. Plan for [facility] tomorrow, pt understands NPO at midnight. FABIAN HO RN 08/26/2021 18:52 documented in this encounter Plan of Treatment Upcoming Encounters Date Type Department Care Team (Late st Contact Info) Description 04/02/2024 11:15 EDT Telemedicine [facility] Urology - [address] [phone] David Bhatt DO 111 [facility], Level [address] [place] [phone] 07/12/2024 12:30 EST Hospital Encounter [facility] [address] [place], [place] [address] Rodrigo Noyola MD [address] [facility], Level 1 [place] [phone] Paroxysmal atrial fibrillation (HCC-CMS) 07/12/2024 12:30 EST - 07/12/2024 17:00 EST Surgery [facility] [address] [place], [place] [address] Rodrigo Noyola MD [address] [facility] [address] [place] [address] Albcj A-Fib [[id number] (CPT??)] 07/23/2024 11:00 EST Office Visit [facility]iology Clinic [address] [place] [address] Malini Euceda MD [address] [phone] documented as of this encounter [...] EST NSTEMI (non-ST elevated myocardial infarction) (HCC-CMS) ([facility]) TROPONIN I Routine 08/27/2021 9:48 [...] EST) 09/07/2021 14:4 8 EST Scan 2 Telecommunication Tower Technician PROCEDURE/MINOR KIERSTEN GICAL ORDERABLES * ECG REPORT - SCANNED (09/02/2021 8:00 EST) 09/02/2021 8:00 EST Scan 2 Telecommunication Tower Technician PROCEDURE/MINOR KIERSTEN GICAL ORDERABLES * ECG REPORT - SCANNED (09/02/2021 8:00 EST) 09/02/2021 8:00 EST Scan 2 Telecommunication Tower Technician PROCEDURE/MINOR KIERSTEN GICAL ORDERABLES * ECG REPORT - SCANNED (08/31/2021 8:47 EST) 08/31/2021 8:47 EST Scan 2 Telecommunication Tower Technician PROCEDURE/MINOR KIERSTEN GICAL ORDERABLES * TRANSTHORACIC ECHO [...] CARE Mitral peak gradient, D 2 mmHg UVN POINT OF CARE LVOT mean velocity, S [...] POINT OF CARE LA/aortic root ratio 1.4 [facility] POINT OF CARE LV end diastolic volume 1-p A2C 110 ml [facility] POINT OF CARE LV ejection fraction, [...] estimated left ventricular ejection fraction by biplane Lindquits's method was 64 %. Left ventricular diastolic [...] color Doppler.The study was interpreted by [facility] Cardiology. Pertinent images and digital [...] 15:11 EST) 08/27/2021 15:1 1 EST Narrative [facility] EKG - 08/31/2021 8:42 EST ? [facility] ? Test Date: ?2021-08-27 Pat Name: ? RALPH GARNICA ?Department: ?? Tate 4 ? Room: ? MT6301 Gender: ? Male ? Circulator: ?? [id number] : ?1950 ? Requested By: RIAN ECHEVARRIA Order Number: [id number] ? Reading : ?? STANISLAW ASHER MD ? Measurements Intervals ?Trent ? Rate: ? 53 ? P: ?72 [...] Note Stanislaw Asher MD - 08/31/2021 [facility] Test Date: 2021-08-27 Pat Name: RALPH GARNICA Department: Bebeto Chopra Room: [facility] Gender: Male Circulator: [id number] : 1950 Requested By: RIAN ECHEVARRIA Order Number: [id number] Reading MD: STANISLAW ASHER MD Measurements Intervals Trent Rate: 53 P: 72 NH: 197 QRS: [...] CARDIAC ECG ORDERABL ES Performing Organization Address City/[facility]/ZIP Co de Phone Number [facility] EKG * POCT GLUCOSE, INTERFACED (08/27/2021 13:38 EST) Glucose, POC 84 70 - 100 mg/dL 08/27/2021 14:27 EST [facility]ORATORY SERVICES HN LAB POC COMMENT (GLUCOSE) Test Performed by Nursing Services 08/27/2021 14:27 EST [facility] Blood CAPILLARY BLOOD / Unknown 08/27/2021 13:38 EST 08/27/2021 14:27 EST Susie Calvo MD POINT OF CARE TEST O RDERABLES Performing Organization Address City/[facility]/ZIP Co de Phone Number [facility] [address] [place] [address] * LEFT HEART CATH (08/27/2021 13:05 EST) Anatomical Region Laterality Modality Library Consultant 08/27/2021 11:4 2 EST Narrative 08/31/2021 9:14 EST Cardiology [address] [place] [address] Catheterization Laboratory Study Patient: Ralph Garnica L ? Study Date: ?08/27/2021 ?Accession #: ? [id number] : ? 1950 Referring: Janes Harris Diagnostic [...] 4. Right radial artery access. A 6FR/.021 [place] Sheath Slender sheath ?? was advanced into [...] (ng/mL) 0.642(H) <0.034 ng/mL 08/27/2021 10:46 EST [facility] Blood VENOUS BLOOD / Unknown Venipuncture / Unknown 08/27/2021 9:48 EST 08/27/2021 10:02 EST Narrative [facility] - 08/27/2021 10:46 EST The results of this assay can be falsely lowered due to the consumption of Biotin. Janes Harris MD CHEMISTRY & BLOOD GA S ORDERABLES [facility] [address] [place] [address] * (ABNORMAL) BASIC METABOLIC PANEL (BMP) (08/27/2021 6:17 EST) Sodium 139 136 - 145 mmol/L 08/27/2021 7:02 [facility] Potassium 4.5 3.5 - 5.0 mmol/L 08/27/2021 7:02 [facility] Chloride 102 96 - 110 mmol/L 08/27/2021 7:02 [facility] CO2 Total 25 22 - 32 mmol/L 08/27/2021 7:02 [facility] Anion Gap 12 8 - 16 08/27/2021 7:02 [facility] Glucose 134(H) 70 - 100 mg/dL 08/27/2021 7:02 [facility] Calcium 9.7 8.5 - 10.5 mg/dL 08/27/2021 7:02 [facility] BUN 19 10 - 26 mg/dL 08/27/2021 7:02 [facility] Creatinine 1.16 0.66 - 1.25 mg/dL 08/27/2021 7:02 [facility] eGFR 63 >60 mL/min/1.73 m2 08/27/2021 7:02 [facility] Blood VENOUS BLOOD / Unknown Venipuncture / Unknown 08/27/2021 6:17 EST 08/27/2021 6:28 EST Susie Calvo MD CHEMISTRY & BLOOD GA S ORDERABLES Performing Organization Address City/[facility]/ZIP Co de Phone Number [facility] [address] [place] [address] * (ABNORMAL) COMPLETE BLOOD COUNT (08/27/2021 6:17 EST) WBC 5.73 4.00 - 10.40 K/cmm 08/27/2021 6:31 [facility] RBC 5.25 4.36 - 5.78 M/cmm 08/27/2021 6:31 [facility] Hemoglobin 16.0 13.8 - 17.3 gm/dL 08/27/2021 6:31 [facility] HCT 45.3 39.5 - 50.2 % 08/27/2021 6:31 [facility] MCV 86 81 - 95 fl 08/27/2021 6:31 [facility] MCH 30.5 27.6 - 33.0 pg 08/27/2021 6:31 [facility] MCHC 35.3 32.8 - 36.4 gm/dL 08/27/2021 6:31 [facility] RDW-CV 12.3 <14.2 % 08/27/2021 6:31 [facility] RDW-SD 39.0 <46.0 fl 08/27/2021 6:31 [facility] PLT 199 141 - 377 K/cmm 08/27/2021 6:31 [facility] MPV 9.2(L) 9.5 - 12.7 fl 08/27/2021 6:31 [facility] Blood VENOUS BLOOD / Unknown Venipuncture / Unknown 08/27/2021 6:17 EST 08/27/2021 6:21 EST Susie Calvo MD HEMATOLOGY & PF4 ORD ERABLES Performing Organization Address City/[facility]/ZIP Co de Phone Number [facility] [address] [place] [address] * HEPARIN LEVEL - UNFRACTIONATED HEPARIN (08/27/2021 6:17 EST) Heparin Level-UFH 0.55 Therapeutic Range: 0.30 - 0.70 IU/mL 08/27/2021 6:44 [facility] Comment:Unfractionated hepar in [...] Calvo MD HEMATOLOGY & PF4 ORD ERABLES [facility] [address] [place] [address] * LIPID PROFILE (INCLUDES CHOLESTEROL, TRIGLYCERIDES, HDL, LDL) (08/27/2021 6:17 EST) Cholesterol 155 See Note mg/dL 08/27/2021 7:02 [facility] Comment: Acceptable: ?<200 mg/dL Borderline High: 200-239 mg/dL High: ?> or = 240 mg/dL HDL 49 See Note mg/dL 08/27/2021 7:02 [facility] Comment: Low: ? <40 mg/dL Normal: ??40-60 mg/dL High: ?>60 mg/dL LDL, Calculated 83 See Note mg/dL 08/27/2021 7:02 [facility] Comment: Optimal: ? <100 mg/dL Near Optimal: ?100-129 mg/dL Borderline High: 130-159 mg/dL High: ?160-189 mg/dL Very High: ? > or = 190 mg/dL Triglyceride 114 See Note mg/dL 08/27/2021 7:02 [facility] Comment: Normal: ? <150 mg/dL Borderline High: ??150 - 199 mg/dL High: ? 200 - 499 mg/dL Very High: ?> or = 500 mg/dL Chol/HDL Ratio 3.2 See Note 08/27/2021 7:02 [facility] Comment:No reference range h as been established for CHOL/HDL ratio. Non HDL Cholesterol 106 See Note mg/dL 08/27/2021 7:02 [facility] Comment: Desirable: ?<130 mg/dL Borderline High: ??130-159 mg/dL High: ? 160-189 mg/dL Very High: ?> or = 190 mg/dL Blood VENOUS BLOOD / Unknown Venipuncture / Unknown 08/27/2021 6:17 EST 08/27/2021 6:28 EST Susie Calvo MD CHEMISTRY & BLOOD GA S ORDERABLES Performing Organization Address [facility] Co de Phone Number [facility] [address] [place] [address] * (ABNORMAL) POCT GLUCOSE, INTERFACED (08/27/2021 5:59 EST) Glucose, POC 119(H) 70 - 100 mg/dL 08/27/2021 6:00 EST [facility] HN LAB POC COMMENT (GLUCOSE) Test Performed by Nursing Services 08/27/2021 6:00 EST [facility] Blood CAPILLARY BLOOD / Unknown 08/27/2021 5:59 EST 08/27/2021 6:00 EST Susie Calvo MD POINT OF CARE TEST O RDERABLES Performing Organization Address City/[facility] Co de Phone Number [facility] [address] [place] [address] * (ABNORMAL) POCT GLUCOSE, INTERFACED (08/27/2021 0:20 EST) Glucose, POC 113(H) 70 - 100 mg/dL 08/27/2021 0:21 EST [facility] HN LAB POC COMMENT (GLUCOSE) Test Performed by Nursing Services 08/27/2021 0:21 EST [facility] Blood CAPILLARY BLOOD / Unknown 08/27/2021 0:20 EST 08/27/2021 0:21 EST Markel Elder MD POINT OF CARE TEST ORDERABLES Performing Organization Address City/[facility] Co de Phone Number [facility] [address] [place] [address] * (ABNORMAL) TROPONIN I (08/27/2021 0:14 EST) [facility] Troponin I (ng/mL) 1.210(H) <0.034 ng/mL 08/27/2021 1:23 EST [facility] Blood VENOUS BLOOD / Unknown Venipuncture / Unknown 08/27/2021 0:14 EST 08/27/2021 0:45 EST Narrative [facility] - 08/27/2021 1:23 EST The results of this assay can be falsely lowered due to the consumption of Biotin. Susie Calvo MD CHEMISTRY & BLOOD GA S ORDERABLES Performing Organization Address City/[facility]/ZIP Co de Phone Number [facility] [address] [place] [address] * (ABNORMAL) POCT GLUCOSE, INTERFACED (08/26/2021 21:36 EST) Glucose, POC 120(H) 70 - 100 mg/dL 08/26/2021 21:37 EST [facility] HN LAB POC COMMENT (GLUCOSE) Test Performed by Nursing Services 08/26/2021 21:37 EST [facility] Blood CAPILLARY BLOOD / Unknown 08/26/2021 21:36 EST 08/26/2021 21:36 EST Markel Elder MD POINT OF CARE TEST ORDERABLES Performing Organization Address [facility]/ZIP Co de Phone Number [facility] [address] [place] [address] * HEPARIN LEVEL - UNFRACTIONATED HEPARIN (08/26/2021 19:41 EST) Heparin Level-UFH 0.54 Therapeutic Range: 0.30 - 0.70 IU/mL 08/26/2021 20:08 EST [facility] Comment:Unfractionated hepar in therapeutic range [...] & PF4 OR DERABLES Performing Organization Address [facility] Co de Phone Number [facility] [address] [place] [address] * POCT GLUCOSE, INTERFACED (08/26/2021 18:32 EST) Glucose, POC 99 70 - 100 mg/dL 08/26/2021 18:38 EST [facility] HN LAB POC COMMENT (GLUCOSE) Test Performed by Nursing Services 08/26/2021 18:38 EST [facility] Blood CAPILLARY BLOOD / Unknown 08/26/2021 18:32 EST 08/26/2021 18:38 EST Susie Calvo MD POINT OF CARE TEST O RDERABLES Performing Organization Address City/[facility]/ZIP Co de Phone Number [facility] [address] [place] [address] * EKG 12-LEAD (08/26/2021 17:34 EST) 08/26/2021 17:3 4 EST Narrative [facility] EKG - 09/07/2021 14:43 EST ? [facility] ? Test Date: ?2021-08-26 Pat Name: ? RALPH GARNICA ?Department: ?? Tate 4 ? Room: ? [id number] Gender: ? Male ? Circulator: ?? [id number] : ?1950 ? Requested By: RONALD ORR Order Number: [id number] ? Reading MD: ?? JUANY FARFAN MD ? Measurements Intervals ?Trent ? Rate: ? 65 ? P: ?58 [...] Note Juany Farfan MD - 09/07/2021 [facility] Test Date: 2021-08-26 Pat Name: RALPH GARNICA Department: Bebeto Chopra Room: [facility] Gender: Male Circulator: [id number] : 1950 Requested By: RONALD ORR Order Number: [id number] Reading MD: JUANY FARFAN MD Measurements Intervals Trent Rate: 65 P: 58 NH: 179 QRS: [...] Susie Calvo MD CARDIAC ECG ORDERABL ES [facility] EKG * COMPLETE BLOOD COUNT (08/26/2021 17:18 EST) WBC 5.54 4.00 - 10.40 K/cmm 08/26/2021 17:49 [facility] RBC 5.11 4.36 - 5.78 M/cmm 08/26/2021 17:49 [facility] Hemoglobin 15.3 13.8 - 17.3 gm/dL 08/26/2021 17:49 [facility] HCT 44.5 39.5 - 50.2 % 08/26/2021 17:49 [facility] MCV 87 81 - 95 fl 08/26/2021 17:49 [facility] MCH 29.9 27.6 - 33.0 pg 08/26/2021 17:49 [facility] MCHC 34.4 32.8 - 36.4 gm/dL 08/26/2021 17:49 [facility] RDW-CV 12.2 <14.2 % 08/26/2021 17:49 [facility] RDW-SD 39.4 <46.0 fl 08/26/2021 17:49 [facility] PLT 215 141 - 377 K/cmm 08/26/2021 17:49 [facility] MPV 9.6 9.5 - 12.7 fl 08/26/2021 17:49 [facility] Blood VENOUS BLOOD / Unknown Venipuncture / Unknown 08/26/2021 17:18 EST 08/26/2021 17:24 EST Susie Calvo MD HEMATOLOGY & PF4 ORD ERABLES [facility] [address] [place] [address] * (ABNORMAL) TROPONIN I (08/26/2021 17:18 EST) Pathologist [facility] Troponin I (ng/mL) 0.773(H) <0.034 ng/mL 08/26/2021 18:09 [facility] Blood VENOUS BLOOD / Unknown Venipuncture / Unknown 08/26/2021 17:18 EST 08/26/2021 17:24 EST Narrative [facility] - 08/26/2021 18:09 EST The results of this assay can be falsely lowered due to the consumption of Biotin. Susie Calvo MD CHEMISTRY & BLOOD GA S ORDERABLES [facility] [address] [place] [address] documented in this encounter Visit Diagnoses Diagnosis NSTEMI (non-ST elevated myocardial infarction) (HCC-CMS) Acute myocardial infarction, subendocardial infarction, episode of care unspecified NSTEMI (non-ST elevated myocardial infarction) (HCC-CMS) Acute myocardial infarction, subendocardial infarction, episode of care unspecified NSTEMI (non-ST elevated myocardial infarction) ([facility]) Acute myocardial infarction, subendocardial infarction, episode of care unspecified Paroxysmal atrial fibrillation ([facility]-CMS)- Primary Atrial fibrillation Paroxysmal atrial fibrillation ([facility]-CMS) Atrial fibrillation documented in this encounter Admitting Diagnoses Diagnosis NSTEMI (non-ST elevated myocardial infarction) ([facility]-CMS) Acute myocardial infarction, subendocardial infarction, [...] Tue08/27/21 at 2124, Low Blood Sugar, Routine glucagon injection 1 mg 1 mg, intramuscular, PRN, Starting on Tue08/26/21 at 1734, Until Tue08/27/21 at 2124, Other, Low blood sugar, Routine heparin in 1/2 NS 25,000 unit/250 mL infusion 15 Units/kg/hr ? 85.3 kg Adjusted weight (12.795 mL/hr, rounded to 13 mL/hr), intravenous, CONTINUOUS, Starting on Tue08/26/21 at 1700, Until Tue08/27/21 at 1311, STAT New Bag 08/27/2021 9:48 EST 15 Units/kg/hr 13 mL/hr New Bag 08/26/2021 16:57 EST 15 Units/kg/hr 13 mL/hr insulin aspart U-100 (NOVOLOG FLEXPEN) injection subcutaneous, EVERY 6 HOURS, First dose on Tue08/26/21 at 1800, Until Discontinued, Routine, Indications: SUPPLEMENTAL INSULIN perflutren lipid microspheres (DEFINITY) 0.165 mg in sodium chloride (PF) 1 mL 0.165 mg, intravenous, Once (Without Time Specified), 1 dose, Starting on Tue08/27/21 at 1603, Until Tue08/27/21 at 4, Routine sodium chloride 0.9 % (flush) flush 5 mL 5 mL, intravenous, EVERY 8 HOURS, First dose on Tue08/26/21 at 1700, Until Discontinued, Routine, Release Given 08/27/2021 16:36 EST 5 mL Given 08/26/2021 16:53 EST 5 mL sodium chloride 0.9 % BOLUS 500 mL 500 mL, intravenous, NOW X1, 1 dose, On Tue08/27/21 at 1500, Routine New Bag 08/27/2021 14:55 EST 500 mL documented in this encounter Discontinued Medications Medication Sig Discontinue Reason Start Date End Da losartan (COZAAR) 50 mg tabletIndications:hyperte nsion Take [...] (Given - Provid er: Marion Chun RN)1204 ([facility] Hold - Provider: Automatic Transfer Provider Hn - Reason: Patient off unit)1331 ([facility] Unhold - Provider: Automatic Transfer Provider Hn) atorvastatin (LIPITOR) tablet 80 mg 80 mg, oral, EVERY EVENING, First dose (after last modification) on Tue08/27/21 at 1700, Until Discontinued, Routine 1204 (NOV Hold - Provider: Automatic Transfer Provider Hn - Reason: Patient off unit)1331 ([facility] Unhold - Provider: Automatic Transfer Provider Hn)1753 (Given - Provider: Maricarmen West, ANDRE) carvediloL (COREG) tablet 6.25 mg 6.25 mg, oral, 2 TIMES DAILY WITH BREAKFAST & DINNER, First dose on Tue08/26/21 at 1800, Until Discontinued, Routine 1822 (Given - Provider: Fabian Ho RN - Comment: 141/82) 0822 (Given - Provider: Marion Chun RN)1204 ([facility] Hold - Provider: Automatic Transfer Provider Hn - Reason: Patient off unit)1331 ([facility] Unhold - Provider: Automatic Transfer Provider Hn)1753 [...] RN - Reason: Order parameters not met)1204 ([facility] Hold - Provider: Automatic Transfer Provider Hn - Reason: Patient off unit)1331 ([facility] Unhold - Provider: Automatic Transfer Provider Hn)1456 [...] ANDRE) 0817 (Not Given - Provider: Marion Chun RN - Reason: Other - Comment: heparin gtt infusing)1204 (NOV Hold - Provider: Automatic Transfer Provider Hn - Reason: Patient off unit)1331 (NOV Unhold - Provider: Automatic Transfer Provider Hn)1636 [...] 0948 (New Bag - Provider: Maricarmen West, ANDRE)1206 (Paused - Provider: Amalia Riggs, ADNRE) PRN Medication Order 08/25/2021 08/26/2021 08/27/2021 acetaminophen [...] Provider Hn - Reason: Patient off unit)1331 ([facility] Unhold - Provider: Automatic Transfer Provider Hn) [...] Provider Hn - Reason: Patient off unit)1331 ([facility] Unhold - Provider: Automatic Transfer Provider Hn) [...] citrate (PF) 50 mcg/mL injection 1 08/27/2021 fentaNYL citrate (PF) injection 1 1 heparin 1,000 unit/mL injection 2 1 iopamidoL (ISOVUE-370) injection 1 08/27/20 lidocaine 20 mg/mL (2 %) injection 1 2020 midazolam (PF) (VERSED) 1 mg/mL injection 1 08/27/2021 midazolam (PF) (VERSED) injection 1 021 nitroglycerin 100 mcg/mL syringe 1 08/27/20 perflutren lipid microsphere s (DEFINITY) 0.165 mg in sodium chloride (PF) 1 mL 1 08/27/2021 sodium chloride 0.9 % (NS) infusion 1 08/27 verapamil (ISOPTIN) 2.5 mg/mL injection 1 1 10/28/2020 acetaminophen (TYLENOL) tablet 650 mg 1 aspirin chewable tablet 81 mg 1 08/26/2021 atorvastatin (LIPITOR) tablet 40 mg 1 08/26 dextrose 50 % solution 12.5 g 1 08/26/2021 glucagon injection 1 mg 1 08/26/2021 heparin 1,000 unit/mL inject ion 3,000 Units 1 08/26/2021 heparin 1,000 unit/mL inject ion 6,000 Units 1 08/26/2021 insulin aspart U-100 (NOVOLO G FLEXPEN) injection 1 08/26/2021 Diet Count Last Ordered Date [...] Date First Orde red Date CASE REQUEST SUPERVISOR STENO POOL 1 08/27/2021 documented in this encounter Care Teams C2 Tactical Analysis Technician Relationship Specialty Start Date End Date Jessie Velasco [address] [place] [address] PCP - General Internal Medicine - Primary Care 08/26/21 Susie Calvo MD [address] [place] [phone] Resident Internal Medicine - Primary Care 08/26/21 08/26/21 2, Med Cardiology [address] [place] [address] Care Team 08/26/21 08/26/21 documented as of this encounter
--- OUTSIDE RECORDS SUMMARY | 2024-03-27 17:28 | XMS_ITS | Encounter Summary ---
Author Organization [facility] Address [address] [place] [address] Care Team Providers Care Western Tack Assembly Line Worker Name Role Phone David Barber MD Unavailable Unavailabl e David Barber MD Primary Care Provider Unav ailable Encounter Details Date Type Department Care Team (Latest Contact Info) Description 11/22/2017 15:23 EDT - 11/22/2017 23:59 EDT Hospital Encounter [facility] [address] [place] [address] Unknown, Provider, Discharge Disposition: Auto Discharge Social History Tobacco [...] Yes 01/30/2014 documented as of this encounter Medications at Time of Discharge Medication Sig Dispensed Refills Start Date End Date aspirin chewable 81 mg tablet Take 81 mg by mouth daily. 02/10/2022 atorvastatin (LIPITOR) 40 mg tabletIndications:hyperl ipidemia Take 40 mg by mouth every evening. 09/25/2021 B-Complex with Vitamin C tablet Take 1 Tab by mouth daily. 06/18/2020 lisinopril (PRINIVIL, ZESTRIL) 10 mg tablet Take 10 mg by mouth daily. 06/18/2020 metFORMIN (GLUCOPHAGE) 500 mg tablet Take 1,000 mg by mouth 2 times daily. Take 1 tablet in the morning and 1/2 tablet in the evening. 08/26/2021 documented as of this encounter Discharge Disposition Disposition Code Departure Means Destination Auto Discharge Home documented in this encounter Plan of Treatment Upcoming Encounters Date Type Department Care Team (Late st Contact Info) Description 04/02/2024 11:15 EDT Telemedicine [facility] Urology - [address] [phone] David Bhatt DO [address] [place] [address], [facility] [address] [place] [phone] 07/12/2024 12:30 EST Hospital Encounter [facility] [address] [facility] [address] [place] [address] [id number] Rodrigo Noyola MD [address] [place] [address] 1 [place] [phone] Paroxysmal atrial fibrillation (HCC-CMS) 07/12/2024 12:30 EST - 07/12/2024 17:00 EST Surgery [facility] [address] [place] [address] [id number] Rodrigo Noyola MD 111 [facility] 1 [place] [phone] Bryce Woo [[id number] (CPT??)] 07/23/2024 11:00 EST Office Visit [facility] [address] [place] [address] Malini Euceda MD [address] [phone] documented as of this encounter Visit Diagnoses Not on filedocumented in this encounter Care Teams Western Tack Assembly Line Worker Relationship Specialty Start Date End Date David Barber MD PCP - General 12/07/13 08/25/21 David Barber MD 12/05/13 08/25/21 documented as of this encounter
--- OUTSIDE RECORDS SUMMARY | 2024-03-27 17:28 | XMS_ITS | Encounter Summary ---
Author Organization [facility] Address [address] [place] [address] Care Team Providers Care Lithographic Printing Machinist Name Role Phone David Barber MD Un[facility] David Barber MD Primary Care Provider Unav ailable Reason for Visit * Reason Comments Cystoscopy here for scheduled c ysto and uds-- Encounter Details Date Type Department Care Team (Late st Contact Info) Description 12/31/2013 9:30 EDT Office Visit [facility] Urology - [place] [facility] [address] [place] [address] David Bhatt, DO 111 [facility] [address] [place] [phone] Urinary retention (Primary Dx); Neurogenic bladder, NOS Discharge Disposition: Auto Discharge Social History Tobacco [...] - - Weight 97.5 kg (215 lb) 12/31/2013 0933 EDT Height - - Body Mass Index 29.57 12/10/2013 1533 EDT documented in this encounter Discharge Diagnoses Diagnosis 788.20 RETENTION OF URINE UNSPEC[ICD-9-CM] documented in this encounter Discharge Disposition Disposition Code Departure Means Destination Auto Discharge documented in this encounter Progress Notes * David Bhatt DO - 12/31/2013 [address] David Barber Dear Dr Barber: Saw Ralph. 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 His creatinine, as you know, came back to normal at 1.3 and there is no sign of prostate cancer with a normal QUAN, no genetic risk known, and a PSA of 2.3. Discussed with he and his TURP, some tissue has to be removed, but he certainly could use a number of different technologies. They are considering whether they want Dr Chen or our group to do it and certainly available for any questions or issues going forward. Sincerely, documented in this encounter Procedure Notes * David Bhatt DO - 12/31/2013 1116 EDT DIVISION OF UROLOGY - [place] OFFICE PROCEDURE - 12/31/2013 PROCEDURE: Cystoscopy. SURGEON: David Bhatt DO NET DEVELOPER ARCHITECT: ANESTHESIA: 10 mL 2% Xylocaine gel. PREOP DIAGNOSIS: Urine retention, renal insufficiency, possible neurogenic bladder. INSTRUMENTS: Flexible 17-St Lucian cystoscope with video. RESIDUAL URINE: Catheter. BLADDER CAPACITY: 1200 mL BLADDER, GENERAL DESCRIPTION: Bladder is trabeculated with cellules, but otherwise no mucosal lesions. Bladder wash cytology was done because there was a little erythema in the trigone. Prostatic urethra was normal with the obstruction about 4.5 cm. TRIGONE AND URETERAL ORIFICES: Trigone displaced downward from enlarged intravesical symmetrical prostate with a bit of a high median bar, but not a huge pedunculated middle lobe, mostly symmetric intravesical extension. VESICAL NECK: URETHRA: Unremarkable. UROGRAPHIC STUDIES: CAT scan with his original retention showed bilateral hydro. Creatinine is improved down to 1.6 with repeats pending. That last one was 1.5 a month ago. It was finally normal, was1.6 in October. OBJECTIVE: Vital signs stable pre and post procedure. Abdominal exam is unremarkable. External genitalia normal. Neurologic: Normal sensation and motor functions. Lower extremities are normal. Prostate is 3/4, QUAN benign. POSTOP DIAGNOSIS: Complete with urodynamics. See separate procedure dictation. 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 RECOMMENDATIONS: He might end up on CIC, but I think now he has a fair chance of spontaneous voiding and he is considering that. David Bhatt DO 10 34 AM - David Bhatt DO cn Dictation ID: [id number] * David Bhatt DO - 12/31/2013 1059 EDT [facility]ISION OF UROLOGY - [place] OFFICE_PROCEDURE - 12/31/2013 EDGER FEEDER: David Bhatt DO PROCEDURE: Complex cystometrogram and voiding pressure studies including intraabdominal pressure determinations. PREOPERATIVE DIAGNOSIS: Urine retention, possible neurogenic bladder, first sensation of filling. NARRATIVE: The patient was brought to the urodynamic lab, identified, and urethral catheter placed without difficulty with scant residual post-CIC catheterization, rectal probe, perineum EMGs placed per routinely with the Laborie unit and all preprocedure checks, sensitivities were favorable. He was filled at 50 mL per minute filling. His first desire, and what he thought was a true sensation of bladder urine filling was at 204. He had a strong desire at 478. He was maximum at 662 while maintaining low detrusor pressure. He then was able to generate a detrusor pressure up to 54 cm of water, with abdominal pressure subtracted from his baseline through that time of 15, which is very favorableand was able to go down to a pressure of 21 afterwards. Was not able to do Uroflow. Was only able to urinate a few mL. He catheterized himself without difficulty. One Cipro antibiotic prophylaxis provided. Had a conversation with he and his of the findings and potentially with an obstruction would not need CIC, but also there is a chance he would need that prolonged post-surgery as his detrusor recovers, but this is certainly a favorable study and other recommendations and therapy after we have discussed it with his attending urologist. David Bhatt DO 10 37 AM - David Bhatt DO cn Dictation ID: [id number] documented in this encounter Plan of Treatment Upcoming Encounters Date Type Department Care Team (Late st Contact Info) Description 04/02/2024 11:15 EDT Telemedicine [facility] Urology - [address] [phone] David Bhatt DO [address] [place] [address] [address] [place] [phone] 07/12/2024 12:30 EST Hospital Encounter [place] [address] [facility] [address] [place] [id number] Rodrigo Noyola MD [address] [place] [phone] Paroxysmal atrial fibrillation ([facility]) 07/12/2024 12:30 EST - 07/12/2024 17:00 EST Surgery [place] [address] EP [facility] [address] [place] [address] [phone] Rodrigo Noyola MD [address] [place] [phone] Bryce Woo [[id number] (CPT??)] 07/23/2024 11:00 EST Office Visit [facility] [address] [place] [address] [phone] Malini Euceda MD [address] [place], [place] [address], [place] [phone] documented as of this encounter Procedures Procedure Name Priority Date/Time Associated Diagnosis Comments POCT URINE DIPSTICK, CLINITEK Routine 12/31/2013 9:47 EDT Urinary retention documented in this encounter Results * (ABNORMAL) POCT URINE DIPSTICK (12/31/2013 9:47 EDT) Color, UA Yellow POINT OF CARE Clarity, UA Clear POINT OF CARE Glucose, UA 1+(A) Negative mg/dL POINT OF CARE Bilirubin, UA Negative Negative POINT OF CARE Ketones, UA Negative Negative mg/dL POINT OF CARE Spec Grav, UA 1.025 1.010, 1.015, 1.020, 1.025 POINT OF CARE Blood, UA Negative Negative POINT OF CARE pH, UA 5.5 4.6 - 8.0 POINT OF CARE Protein, UA Trace(A) Negative mg/dL POINT OF CARE Urobilinogen, UA 0.2 0.2 - 1.0 E.U./dL POINT OF CARE Nitrite, UA Negative Negative POINT OF CARE Leuk Esterase Negative Negative POINT OF CARE Comment POINT OF CARE Urine specimen (specimen) 12/31/2013 9:47 EDT David hBatt DO POINT OF CARE TEST ORDERABLES POINT OF CARE documented in this encounter Visit Diagnoses Diagnosis Urinary retention- Primary Retention of urine, unspecified Neurogenic bladder, NOS Paroxysmal atrial fibrillation (HCC-CMS)- Primary Atrial fibrillation Paroxysmal atrial fibrillation (HCC-CMS) Atrial fibrillation documented in this encounter Orders Medications Ordered That Quirino ht Not Have Been Administered Count Last Ordered Date First Ordered Date ciprofloxacin (CIPRO) tablet 500 mg 1 12/31 documented in this encounter Care Teams Lithographic Printing Machinist Relationship Specialty Start Date End Date David Barber MD PCP - General 12/07/13 08/25/21 David Barber MD 12/05/13 08/25/21 documented as of this encounter
--- OUTSIDE RECORDS SUMMARY | 2024-03-27 17:28 | XMS_ITS | Encounter Summary ---
Author Organization [facility] Address [address] [place] [address] Care Team Providers Care Electric Sign Assembler Name Role Phone Unavailable Primary Care Provider Unavailabl e Encounter Details Date Type Department Care Team (Late st Contact Info) Description 05/16/2006 Before PRISM Converted Visit ([facility]) [facility] - [facility] conversion [address] [place] [address] Ann Talley FNP [facility] [address] [place], [place] [phone] Social History Tobacco Use Types Packs/Day Years [...] 11:15 EDT Telemedicine [facility] Urology - [facility] [address] [place], [place] [address] David Bhatt, 111 [facility], Level [address] [place] [phone] 07/12/2024 12:30 EST Hospital Encounter [facility] [address] [place], [place] [phone] Rodrigo Noyola MD [address] [place] [phone] Paroxysmal atrial fibrillation (HCC-CMS) 07/12/2024 12:30 EST - 07/12/2024 17:00 EST Surgery [place] [address] [address] [place] [address] [phone] Rodrigo Noyola MD [address] [place] [phone] [place] A-Fib [[id number] (CPT??)] 07/23/2024 11:00 EST Office Visit [facility] Cardiology Clinic [address] [place], [place] [address] Malini Euceda MD [address] [place] [phone] documented as of this encounter Visit Diagnoses Diagnosis Paroxysmal atrial fibrillation (HCC-CMS)- Primary Atrial fibrillation Paroxysmal atrial fibrillation (HCC-CMS) Atrial fibrillation * Evaluation - Ann Talley - 09/11/2009 0814 EST DIVISION OF INFECTIOUS DISEASE NEW PATIENT EVALUATION - 05/16/2006 [facility] DEPARTMENT OF MEDICINE TRAVEL - Where: [facility] When: 06/16/06 How Lon weeks Purpose: business Previous: ALLERGIES: NKDA MEDICATIONS: Lipitor, Toprol PMH: no chronic illness, no pulmonary or cardiac disease no hepatitis LMP: N/A IMMUNODEFICIENCY: none PREVIOUS IMMUNIZATIONS: TD - 97 RISK/BENEFIT REVIEW: Yellow fever will vaccinate today. Malaria - discussed mefloquine and Malarone-prefers mefloquine. Hepatitis A, typhoid, and polio will vaccinate today. TD > 5 years will booster today. Rabies will get postexposure vaccine if necessary x Insect/food/water/sex precautions reviewed x Patient education handouts given PHYSICAL EXAM: TEMP: 98 BP: 158/98 WEIGHT: 111.5 kg PLAN: See immunizations ordered on second page. Total Visit Time: 20 Time Spent on Counseling by Provider: 15 IMMUNIZATIONS NEEDED Cholera: Yes/No Date Given Lot # Site 1 Yellow Fever 05/16/06 See flow sheet See flow sheet 2 Typhoid, oral Typhim 05/16/06 See flow sheet See flow sheet 3 MMR 4 Tetanus Diphtheria 05/16/06 See flow sheet See flow sheet 5 Meningococcal Vaccine Menomune Menactra 6 Polio (OPV, IPV) 05/16/06 See flow sheet See flow sheet 7 Malaria Prophylaxis Chloroquine Malarone Mefloquine # 8 05/16/06 Doxycycline Other 8 Immune Globulin WT: 9 Hepatitis A Vaccine 05/16/06 flow sheet See flow sheet Booster 10 Hepatitis B Vaccine Booster x1 month Booster x6 month 11 Influenza 12 Rabies Booster x7 days Booster x28 days 13 J.E.V. Booster x7 days Booster x30 days Other: Antibiotics: ciprofloxacin 500 mg BID x 3 days PRN for severe diarrhea Patient advised to sit for 20 minutes. Signed by CATHRYN Torres 05/18/2006 09:12 Gladys Crane FNP CATHRYN Torres D: - CATHRYN Torres A - dk Job ID: Document ID: [id number] cc: Ricki Peñaloza MD documented in this encounter
--- OUTSIDE RECORDS SUMMARY | 2024-03-27 17:28 | XMS_ITS | Encounter Summary ---
Author Organization [facility] Address [address] [place] [address] Care Team Providers Care Concrete Handler Name Role Phone David Barber MD [facility] David Barber MD Primary Care Provider Unav ailable Reason for Visit * Reason Comments Follow-up TURP-- voiding well, feels like emptying bladder completely Encounter Details Date Type Department Care Team (Late st Contact Info) Description 03/11/2014 9:00 EDT Office Visit [facility] - [place] [facility] Bldg [address] [place] [address] David Bhatt, DO 111 [facility], [facility] [address] [place] [phone] Dysuria (Primary Dx); BPH (benign prostatic hypertrophy) with urinary retention Discharge Disposition: Auto Discharge Social History Tobacco [...] - - Weight 97.5 kg (215 lb) 03/11/2014 0852 EDT Height - - Body Mass Index [...] as of this encounter Discharge Diagnoses Diagnosis 788.1 DYSURIA[ICD-9-CM] 600.01 HYPERTROPHY (BENIGN) OF PROSTATE W/URINARY OBSTR LOWER URINARY TRACT SYM (LUTS)[ICD-9-CM] documented in this encounter Discharge Disposition Disposition Code Departure Means Destination Auto Discharge documented in this encounter Progress Notes * David Bhatt, - 03/11/2014 0908 EDT Followup note on [facility] a month after TURP for BPH. He is now off CIC. His residual urine by bladder scan is only 192. He feels really good. 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 So when it feels like it is hanging up there, he is just going to pass the catheter, whether it is once a week, once every couple weeks, whatever, just be cognizant of it. His physical exam today is benign. Vital signs stable. Urinalysis shows pyuria, which could be normal for this stage postop, and so he will have a urine culture. If negative, continue the above therapy. We will see him in 4 months. If he has to open up the fossa navicularis distal urethra more than daily, he is going to let me know. cc: Dr David Barber documented in this encounter Plan of Treatment Upcoming Encounters Date Type Department Care Team (Late st Contact Info) Description 04/02/2024 11:15 EDT Telemedicine [facility] - [address] [address] David Bhatt DO 111 [facility], Level [address] [place] [phone] 07/12/2024 12:30 EST Hospital Encounter [place] [address] [facility] [address] [place] [address] [phone] Rodrigo Noyola MD [address] [place] [phone] Paroxysmal atrial fibrillation ([facility]) 07/12/2024 12:30 EST - 07/12/2024 17:00 EST Surgery [place] [address] EP Lab [address] [place] [address] [phone] Rodrigo Noyola MD [address] [place] [phone] Alb[place] A-Fib [[id number] (CPT??)] 07/23/2024 11:00 EST Office Visit [facility] [address] [place] [address] [phone] Malini Euceda MD [address] [place] [phone] documented as of this encounter Procedures Procedure Name Priority Date/Time Associated Diagnosis Comments UROLOGY BLADDER SCAN Routine 03/11/2014 8:58 EDT Dysuria POCT URINE DIPSTICK, CLINITEK Routine 03/11/2014 8:58 EDT Dysuria documented in this encounter Results * UROLOGY BLADDER SCAN (03/11/2014 8:58 EDT) Bladder Scan 192 POINT OF CARE Urine specimen (specimen) 03/11/2014 8:58 EDT David Bhatt DO UROLOGY ORDERABLES POINT OF CARE * (ABNORMAL) POCT URINE DIPSTICK (03/11/2014 8:58 EDT) Color, UA Yellow POINT OF CARE Clarity, UA Slightly Cloudy POINT OF CARE Glucose, UA 1+(A) Negative mg/dL POINT OF CARE Bilirubin, UA Negative Negative POINT OF CARE Ketones, UA Negative Negative mg/dL POINT OF CARE Spec Grav, UA >1.030(A) 1.010, 1.015, 1.020, 1.025 POINT OF CARE Blood, UA 3+(A) Negative POINT OF CARE pH, UA 5.5 4.6 - 8.0 POINT OF CARE Protein, UA 2+(A) Negative mg/dL POINT OF CARE Urobilinogen, UA 0.2 0.2 - 1.0 E.U./dL POINT OF CARE Nitrite, UA Negative Negative POINT OF CARE Leuk Esterase 2+(A) Negative POINT OF CARE Comment POINT OF CARE Urine specimen (specimen) 03/11/2014 8:58 EDT David Bhatt DO POINT OF CARE TEST ORDERABLES Performing Organization Address [facility]/State/ZIP Co de Phone Number POINT OF CARE documented in this encounter Visit Diagnoses Diagnosis Dysuria- Primary BPH (benign prostatic hypertrophy) with urinary retention Hypertrophy of prostate with urinary obstruction and other lower urinary tract symptoms (LUTS) Paroxysmal atrial fibrillation (HCC-CMS)- Primary Atrial fibrillation Paroxysmal atrial fibrillation (HCC-CMS) Atrial fibrillation documented in this encounter Discontinued Medications Medication Sig Discontinue Reason Start Date End Da te HYDROmorphone (DILAUDID) 2 mg tablet Take 1-2 Tabs by mouth every 4 hours as needed for Pain. Therapy completed 01/30/2014 03/11/2014 documented as of this encounter Care Teams Concrete Handler Relationship Specialty Start Date End Date David Barber MD PCP - General 12/07/13 08/25/21 David Barber MD 12/05/13 08/25/21 documented as of this encounter
--- OUTSIDE RECORDS SUMMARY | 2024-03-27 17:28 | XMS_ITS | Encounter Summary ---
Author Organization [facility] Address [address] [place] [address] Care Team Providers Care Senior Software Manager Name Role Phone David Barber MD Unavailable Unavailabl e David Barber MD Primary Care Provider Unav ailable Encounter Details Date Type Department Care Team (Late st Contact Info) Description 12/31/2013 Historical Results Only [facility] [place] [address] [address] David Bhatt, DO [address] [place] [phone] Social History Tobacco Use Types Packs/Day Years Used Date Smoking Tobacco: Never Sex and Gender Information Value Date Recorded Sex Assigned at Not on file Gender Identity Male 08/26/2021 11:28 EST Sexual Orientation Not on file documented as of this encounter Plan of Treatment Upcoming Encounters Date Type Department Care Team (Late st Contact Info) Description 04/02/2024 11:15 EDT Telemedicine [facility] Urology - [address] [phone] David Bhatt, DO [address] [phone] 07/12/2024 12:30 EST Hospital Encounter [place] [facility] EP Lab [address] [place], [place] [phone] Rodrigo Noyola MD [address] [place] [phone] Paroxysmal atrial fibrillation ([facility]) 07/12/2024 12:30 EST - 07/12/2024 17:00 EST Surgery [place] [address] EP Lab [address] [place], [place] [phone] Rodrigo Noyola MD [address] [place] [phone] Albation Chilo [[id number] (CPT??)] 07/23/2024 11:00 EST Office Visit [facility] Cardiology Clinic [address] [place] [address] Malini Euceda MD [address] [place] [phone] documented as of this encounter Procedures Procedure Name Priority Date/Time Associated Diagnosis Comments CYTOLOGY (NON-GYNECOLOGIC INCLUDING FLUIDS AND FINE NEEDLE ASPIRATION)- ORDER ONLY Routine 12/31/2013 8:28 EDT documented in this encounter Results * CYTOLOGY (NON-GYNECOLOGIC INCLUDING FLUIDS AND FINE NEEDLE ASPIRATION)- ORDER ONLY (12/31/2013 8:28EDT) 12/31/2013 8:28 EDT 01/01/2014 8:28 EDT [facility] LAB - 01/01/2014 14:16 EDT ----- ------- Name: RALPH GARNICA ?: 50 ?Age/Sex: 69/M ?Unit#: [id number] ? Loc: CVE ? Status: REG POV ?? Reg Date: 12/31/13 ? Pt.Phone Number: ? ----- ------- Specimen: [id number] ? STATUS: SOUT ?Spec Date:12/31/13 ? Physician Copies: ?David Bhatt DO Tissues: A ?? Urine (BLADDER WASHING) ? CPT: 02541 ?? Units: ??1 ----- ------- ?? NON EXPORT MANAGER CYTOLOGY DIAGNOSIS Bladder washing: - No malignant cells identified. - Benign urothelial cells. - Mild inflammation. - Occasional RBC's. ----- ------- ? SPECIMEN DESCRIPTION ? 30mL of clear pale yellow fluid were received and processed by ?? selective cellular enhancement technique. ?? PREOP DX/CLINICAL HISTORY ?URINARY RETENTION Signed ____(signature on file)____ Zeeshan Santiago M.D. 01/01/14 By the signature above, the attending physician certifies that he/she has personally conducted a gross and/or microscopic examination of the described specimens and rendered or confirmed the above diagnosis. Test Performed by [facility], [address] [place] [address] Administrative Project Coordinator: Harper Cortes MD PHD ----- ------- David Bhatt DO PATHOLOGY ORDERABLE S Performing Organization Address [facility]/State/ZIP Co de Phone Number [facility] LAB documented in this encounter Visit Diagnoses Not on filedocumented in this encounter Care Teams Senior Software Manager Relationship Specialty Start Date End Date David Barber MD PCP - General 12/07/13 08/25/21 David Barber MD 12/05/13 08/25/21 documented as of this encounter
--- OUTSIDE RECORDS SUMMARY | 2024-03-27 17:28 | XMS_ITS | Encounter Summary ---
Author Organization [facility] Address [address] [place] [address] Care Team Providers Care Software Application Tester Name Role Phone David Barber MD Un[facility] David Barber MD Primary Care Provider Unav ailable Encounter Details Date Type Department Care Team (Late st Contact Info) Description 12/27/2013 Abstract [facility] Urology [facility] Medical Office Bldg C [address] [place] [address] Kaitlyn Rivera RN Social History Tobacco Use Types Packs/Day Years Used Date Smoking Tobacco: Never Sex and Gender Information Value Date Recorded Sex Assigned at Not on file Gender Identity Male 08/26/2021 11:28 EST Sexual Orientation Not on file documented as of this encounter Plan of Treatment Upcoming Encounters Date Type Department Care Team (Late st Contact Info) Description 04/02/2024 11:15 EDT Telemedicine [facility] Urology [address] [phone] David Bhatt DO 111 [facility], [facility] [address] [place] [phone] 07/12/2024 12:30 EST Hospital Encounter [place] [address] EP Lab [address] [place], [place] 167371 Rodrigo Noyola MD 111 [facility] 1 [place] [phone] Paroxysmal atrial fibrillation ([facility] 07/12/2024 12:30 EST - 07/12/2024 17:00 EST Surgery [place] [address] EP [address] [place] [address] [phone] Rodrigo Noyola MD [address] [phone] Albation A-Fib [[id number] (CPT??)] 07/23/2024 11:00 EST Office Visit [facility] Cardiology Clinic [address] [place] [phone] Malini Euceda MD [address] [place] [phone] documented as of this encounter Visit Diagnoses Not on filedocumented in this encounter Care Teams Software Application Tester Relationship Specialty Start Date End Date David Barber MD PCP - General 12/07/13 08/25/21 David Barber MD 12/05/13 08/25/21 documented as of this encounter
--- OUTSIDE RECORDS SUMMARY | 2024-03-27 17:28 | XMS_ITS | Encounter Summary ---
Author Organization [facility] Address [address] [place] [address] Care Team Providers Care Electric Truck Operator Name Role Phone David Barber MD Unavailable Unavailabl e David Barber MD Primary Care Provider Unav ailable Reason for Referral * (Routine/Next Available) - Closed Specialty Diagnoses / Procedures Referred By Contac t Referred To Contact Diagnoses Urinary retention Procedures PSA Mariaa Macias RN Referral ID Status Reason Start Date Expiration Date Visits Re quested Visits Authorized [id number] Closed 12/10/2013 1 1 * (Routine/Next Available) - Closed Specialty Diagnoses / Procedures Referred By Contac t Referred To Contact Diagnoses Elevated serum creatinine Procedures BASIC METABOLIC PANEL Mariaa Macias RN Referral ID Status Reason Start Date Expiration Date Visits Re quested Visits Authorized [id number] Closed 12/10/2013 1 1 * (Routine/Next Available) - Closed Specialty Diagnoses / Procedures Referred By Contac t Referred To Contact Diagnoses Urinary retention Elevated serum creatinine Procedures CREATININE Mariaa Macias RN Referral ID Status Reason Start Date Expiration Date Visits Re quested Visits Authorized [id number] Closed 12/10/2013 1 1 Reason for Visit * Reason Comments Establish Care referred by Dr. Chen for urinary retention--has been self cathing 6-7 times daily Encounter Details Date Type Department Care Team (Late st Contact Info) Description 12/10/2013 15:30 EDT Office Visit [facility] Urology - [place] [facility] Bldg C [address] [place] [address] David Bhatt, DO 111 [facility], Level [address] [place] [phone] Urinary retention (Primary Dx); Elevated serum creatinine Discharge Disposition: Auto Discharge Social History Tobacco Use Types Packs/Day Years Used Date Smoking Tobacco: Never Sex and Gender Information Value Date Recorded Sex Assigned at Not on file Gender Identity Male 08/26/2021 11:28 EST Sexual Orientation Not on file documented as of this encounter Last Filed Vital Signs Vital Sign Reading Time Taken Comments Blood Pressure 138/74 12/10/2013 1533 EDT Pulse 62 12/10/2013 1533 EDT Temperature - - Respiratory Rate 16 12/10/2013 1533 EDT Oxygen Saturation - - Inhaled Oxygen Concentration - - Weight 97.5 kg (215 lb) 12/10/2013 1533 EDT Height 181.6 cm (5' 11.5) 12/10/2013 1533 EDT Body Mass Index 29.57 12/10/2013 1533 EDT documented in this encounter Discharge Diagnoses Diagnosis 788.20 RETENTION OF URINE UNSPEC[ICD-9-CM] 790.99 ABNL BLOOD EXAM FINDING OTHER SPEC[ICD-9-CM] documented in this encounter Discharge Disposition Disposition Code Departure Means Destination Auto Discharge documented in this encounter Progress Notes * David Bhatt, DO - 12/10/2013 1554 EDT Ralph Garnica was seen in my office today in consultation at the request of Dr David Barber and Williams Chen CHIEF COMPLAINT: Urine retention. Renal insufficiency. BPH. 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 HISTORY OF RECENT ILLNESS: Mr Garnica presents with his . He is a very pleasant, articulate gentleman who back in the 80s had been on alpha-blockers for outlet obstruction, did not really change things, did okay and then a month ago, he said everything kind of hit. He got a dizziness situation with records attached, developed urine retention, 1200 mL residual. Creatinine 1.5 with some decreased sensation over the last few months to both feet, questionable peripheral neuropathy. Bowels are fineand has been on clean intermittent catheterization since. Cystoscopy by Dr Chen showed bladder obstructive trabeculations, etc. and obstructive BPH. He presents for potential bladder neurologic evaluation and recommendations back to the patient and Dr Chen. Ralph really does not know of any medications or anything that triggered this acute situation. No back pain issues or acute neurological changes. He is catheterizing well, approximately 6 to 7 times a day to make sure the residuals stay less than 200 to 300. When he has a real full bladder, he could have as much as 700. He is voiding nothing on his own. No pain or issues, really doing a good job catheterizing himself. He is really working on his blood sugars as well as the other medical situations acutely. PAST HISTORY: Only significant prior to these episodes for uncomplicated vasectomy. FAMILY HISTORY: Denied. PAST MEDICAL HISTORY: He presently has the elevated cholesterol, hypertension, non-insulin dependent diabetes. MEDICATIONS: Baby aspirin, Lipitor, vitamin B, C, Zestril, Glucophage. ALLERGIES: He is intolerant of nothing. SOCIAL HISTORY: He is here with his . No smoking, work, chemical exposure. REVIEW OF SYSTEMS: Constitutional: He has attempted with exercise and diet and has lost 40 pounds over the last year. No unexplained weight loss. Neurologic: As above. Eyes: No acute visual changes. ENT: No URI or sore throat recently, no hearing changes. Cardiovascular: No chest pain or recent cardiac problems. Respiratory: No shortness of breath, recent cough or other breathing concerns. Gastrointestinal: No bowel changes or recent history. Integumentary: No rashes or recent history of changes. Endocrine: No diabetes, thyroid disorder, or other known past history. Hematologic and lymphatic: No bleeding problems or easy bruising. Musculoskeletal: No spine or lower extremity pain or swelling. PHYSICAL EXAM: Alert, pleasant. Vital signs stable. He is oriented. Sclerae and conjunctivae clear.No oral lesions. No palpable neck or thyroid abnormalities. No supraclavicular or inguinal adenopathy. On chest exam, there was no gynecomastia. Abdomen soft with no masses or tenderness. No ventral or inguinal hernias. Spine and paraspinal musculature normal with no costovertebral angle tenderness. Perineal and lower extremity motor and sensory functions intact. Normal penis with no plaques. Glans and meatus are normal. Scrotum normal. Testes symmetrical with no masses or tenderness. Epididymis and cord structures are normal. Perirectal and perineal area is normal. Prostate gland 3/4,symmetric with no nodules or induration. Seminal vesicles are nonpalpable. Rectal exam is unremarkable. Lower extremities without edema or deformity. No external genitalia or lower abdominal rash or skin lesions. LABORATORY AND RADIOLOGY: The patient, in the past, says he has had a PSA with his physical exams, which are favorable. We will get those records. We discussed repeating his creatinine and electrolytes. He had abdominal ultrasound performed on the 13 of November, which showed the initial distended bladder, 900 mL, with bilateral hydronephrosis. RECOMMENDATIONS: So, we discussed the plan as above. He is going to have a urodynamics study, continue the CIC with which he is doing extremely well. I answered what questions he had on that. Other recommendations based on that. cc: Dr David Chen documented in this encounter Plan of Treatment Upcoming Encounters Date Type Department Care Team (Late st Contact Info) Description 04/02/2024 11:15 EDT Telemedicine [facility] Urology - [address] [phone] David Bhatt DO 111 [facility], Level [address] [place] [phone] 07/12/2024 12:30 EST Hospital Encounter [place] [address] EP Lab [address] [place] [address] Rodrigo Noyola MD 111 [facility] Level [address] [place] [phone] Paroxysmal atrial fibrillation ([facility]) 07/12/2024 12:30 EST - 07/12/2024 17:00 EST Surgery [place] 1 EP Lab [address] [place], [place] [address] Rodrigo Noyola MD [address] [phone] [place] A-Fib [[id number] (CPT??)] 07/23/2024 11:00 EST Office Visit [facility] Cardiology Clinic [address] [place] [address] Malini Euceda MD [address] [phone] Scheduled Orders Name Type Priority Associated Diagnoses Orde r Schedule CREATININE Lab Routine Urinary retention Elevated serum creatinine Ordered: 12/10/2013 BASIC METABOLIC PANEL Lab Routine Elevated serum creatinine Ordered: 12/10/2013 PSA Lab Routine Urinary retention Ordered: 12/10/2013 documented as of this encounter Visit Diagnoses Diagnosis Urinary retention- Primary Retention of urine, unspecified Elevated serum creatinine Other nonspecific findings on examination of blood Paroxysmal atrial fibrillation (HCC-CMS)- Primary Atrial fibrillation Paroxysmal atrial fibrillation (HCC-CMS) Atrial fibrillation documented in this encounter Historical Medications * This list may reflect changes made after this encounter. Medication Sig Dispensed Refills Start Date End Date lisinopril (PRINIVIL, ZESTRIL) 10 mg tablet Take 10 mg by mouth daily. 06/18/2020 atorvastatin (LIPITOR) 40 mg tabletIndications:hyperl ipidemia Take 40 mg by mouth every evening. 09/25/2021 metFORMIN (GLUCOPHAGE) 500 mg tablet Take 1,000 mg by mouth 2 times daily. Take 1 tablet in the morning and 1/2 tablet in the evening. 08/26/2021 B-Complex with Vitamin C tablet Take 1 Tab by mouth daily. 06/18/2020 aspirin chewable 81 mg tablet Take 81 mg by mouth daily. 02/10/2022 added in this encounter Care Teams Electric Truck Operator Relationship Specialty Start Date End Date David Barber MD PCP - General 12/07/13 08/25/21 David Barber MD 12/05/13 08/25/21 documented as of this encounter
--- OUTSIDE RECORDS SUMMARY | 2024-03-27 17:28 | XMS_ITS | Encounter Summary ---
Author Organization [facility] Address [address] [place] [address] Care Team Providers Care Commander Internal Affairs Name Role Phone David Barber MD [facility] David Barber MD Primary Care Provider Unav ailable Reason for Visit * Reason Onset Date Comments Follow-up 01/07/2014 pre op packet Encounter Details Date Type Department Care Team (Late st Contact Info) Description 01/07/2014 Telephone [facility] Urology - [address] [address] David Bhatt, DO 111 [facility], Level [address] [place] [phone] Follow-up (pre op packet) Social History Tobacco Use Types Packs/Day Years Used Date Smoking Tobacco: Never Sex and Gender Information Value Date Recorded Sex Assigned at Not on file Gender Identity Male 08/26/2021 11:28 EST Sexual Orientation Not on file documented as of this encounter Miscellaneous Notes * Telephone Encounter - Linda Morales - 01/07/2014 1047 EDT Pt requests to speak with Annelise in pre op packet. documented in this encounter Plan of Treatment Upcoming Encounters Date Type Department Care Team (Late st Contact Info) Description 04/02/2024 11:15 EDT Telemedicine [facility] Urology - [address] [address] David Bhatt DO 111 [facility], [facility], Level [address] [place] [phone] 07/12/2024 12:30 EST Hospital Encounter [place] [address] [place] [phone] Rodrigo Noyola MD [address] [place] [phone] Paroxysmal atrial fibrillation ([facility]) 07/12/2024 12:30 EST - 07/12/2024 17:00 EST Surgery [place] [address] EP [address] [place] [phone] Rodrigo Noyola MD [address] [place] [phone] Bryce Woo [[id number] (CPT??)] 07/23/2024 11:00 EST Office Visit [facility] Cardiology Clinic [address] [place] [phone] Malini Euceda MD [address] [place] [phone] documented as of this encounter Visit Diagnoses Not on filedocumented in this encounter Care Teams Commander Internal Affairs Relationship Specialty Start Date End Date David Barber MD PCP - General 12/07/13 08/25/21 David Barber MD 12/05/13 08/25/21 documented as of this encounter
--- OUTSIDE RECORDS SUMMARY | 2024-03-27 17:28 | XMS_ITS | Encounter Summary ---
Author Organization [facility] Address [address] [place] [address] Care Team Providers Care Magneto Electrician Name Role Phone Krista Jessie Marie Primary Care Provider [phone] Susie Calvo MD Unavailable [phone], Med Cardiology Unavailable Unavailable Encounter Details Date Type Department Care Team (Latest Contact Info) Description 08/26/2021 Travel Social History Tobacco Use Types Packs/Day [...] No 08/26/2021 documented as of this encounter Plan of Treatment Upcoming Encounters Date Type Department Care Team (Late st Contact Info) Description 04/02/2024 11:15 EDT Telemedicine [facility] Urology - [address] [phone] David Bhatt, 111 [facility] 5 [place] [phone] 07/12/2024 12:30 EST Hospital Encounter [facility] [address] [place], [place] [id number] Rodrigo Noyola MD [address] [place] [phone] Paroxysmal atrial fibrillation ([facility]) 07/12/2024 12:30 EST - 07/12/2024 17:00 EST Surgery [facility] [address] [place], [place] [id number] Rodrigo Noyola MD [address] [place] [phone] Bryce Woo [[id number] (CPT??)] 07/23/2024 11:00 EST Office Visit [facility] [address] [place] [address] Malini Euceda MD 111 [facility] 1 [place] [phone] documented as of this encounter Visit Diagnoses Not on filedocumented in this encounter Care Teams Magneto Electrician Relationship Specialty Start Date End Date Jessie Velasco [address] [place] [phone] PCP - General Internal Medicine - Primary Care 08/26/21 Susie Calvo MD [address] [place] [phone] Resident Internal Medicine - Primary Care 08/26/21 08/26/21 2, Med Cardiology [address] [place] [address] Care Team 08/26/21 08/26/21 documented as of this encounter
--- OUTSIDE RECORDS SUMMARY | 2024-03-27 17:28 | XMS_ITS | Encounter Summary ---
Author Organization [facility] Address [address] [place] [address] Care Team Providers Care Assessment Coordinator Name Role Phone Unavailable Primary Care Provider Unavailabl e Encounter Details Date Type Department Care Team (Latest Contact Info) Description 11/22/2005 8:55 EST - 11/22/2005 11:59 EST Hospital Encounter [facility] Perioperative Services- [facility] [address] [place] [address] Cash Zaman MD [address] [place] [id number] Discharge Disposition: Home or Self Care Social [...] documented in this encounter Progress Notes * Darrell Zaman MD - 11/22/2005 0000 EST INPATIENT UPDATE LETTER November 22, 2005 Ricki Peñaloza MD [facility] [address] [place] [id number] Peñaloza, I had the pleasure of performing left heart catheterization and coronary cineangiography on Ralph Garnica today. As you know, he is a very pleasant gentleman who had presented for a preoperative electrocardiogram. The electrocardiogram wasabnormal and the subsequent Cardiolite stress test showed a markedly abnormal electrocardiographic response with normal Cardiolite images. The patient has atypical nonexertional chest pain. Today's procedure was performed using the right femoral approach without complications. The findings are as follows. Coronary cineangiography: The left main coronary artery is free of significant disease. The left anterior descending coronary artery is free of significant disease. The circumflex coronary artery is dominant in distribution. It is free of significant disease. The right coronary artery is a small and nondominant vessel. It has no significant disease. Left ventricular cineangiography: Left ventricular cineangiography shows normal function without regional wall motion abnormalities. The estimated ejection fraction is 75%. There is no significant mitral regurgitation. There is no pullback gradient across the aortic valve. In summary, Mr. Garnica has no evidence for epicardial coronary disease. He apparentlyhas a false-positive electrocardiographic response to exercise. This should be kept on record for future reference. At this point the patient certainly can proceed with the elective knee surgery as planned. Please do not hesitate to contact me with any further questions regarding his care. Sincerely, Signed by Cash Zaman MD 11/23/2005 01:50 Brii Ward MD Cash Zaman MD - Cash Zaman MD P - SB Job ID: [id number] Document ID: [id number] cc: MD Cash Doty MD documented in this encounter Plan of Treatment Upcoming Encounters Date Type Department Care Team (Late st Contact Info) Description 04/02/2024 11:15 EDT Telemedicine [facility] Urology - [address] [id number] David Bhatt, [address] [place] [address], Level [address] [place] [phone] 07/12/2024 12:30 EST Hospital Encounter [place] [address] [facility] [address] [place], [place] [address] Rodrigo Noyola MD [address] [phone] Paroxysmal atrial fibrillation ([facility]-CMS) 07/12/2024 12:30 EST - 07/12/2024 17:00 EST Surgery [place] [address] [facility] [address] [place], [place] [id number] Rodrigo Noyola MD [address] [place] [phone] Albation A-Fib [[id number] (CPT??)] 07/23/2024 11:00 EST Office Visit [facility] Cardiology Clinic [address] [place] [id number] Malini Euceda MD [address] [place] [phone] documented as of this encounter Procedures Procedure Name Priority Date/Time Associated Diagnosis Comments DIRECTOR OF INFECTION CONTROL PROCEDURE 11/22/2005 11 :03 EST documented in this encounter Results * DIRECTOR OF INFECTION CONTROL PROCEDURE (11/22/2005 11:03 EST) Anatomical Region Laterality Modality Other 11/22/2005 11:0 3 EST Narrative 11/22/2005 11:40 EST ? [facility] ?[address] ??[place], [place] [address] ? [phone] ?Final Diagnostic Cardiovascular Catheterization Report ?--- SUMMARY OF RESULTS --- > Coronary angiography demonstrates no significant epicardial coronary artery disease. > Left ventriculography revealed normal left ventricular function. ??Regional wall motion abnormalities were absent. > Diagnostic cardiac catheterization was performed without any significant complications. ? --- PLAN --- Ongoing primary prevention ? --- PATIENT PRESENTATION --- The patient is a 55 year old male with the following indications: The patient has the following Comorbidities/Risk Factors: ??Hyperlipidemia, Hypertension. : 1950 ?Sex: male ?Height: 180.3cm ?Weight: 113.6kg ?BSA: 2.32 Allergies: ??NKA Pre-Library Attendant Values: ??HCT: 47.0 ?Platelets: 203.0 ?Creatinine: 1.2 ? --- PROCEDURE --- DIAGNOSTIC CARDIAC PROCEDURE Under local anesthesia, the right femoral artery was accessed with a 6F sheath using modified Seldinger technique. ??A 6F JL4 catheter was introduced and positioned in the ascending aorta. Selective coronary arteriography was then performed using a 6F JL4 catheter to engage the left coronary artery and a 6F JR4 catheter to engage the right coronary artery. ??Right and left coronary arteriography were performed in multiple views. Left heart cath was performed according to standard procedure. ??A 6F Pigtail was used to cross the aortic valve and measure pressures in the left ventricle. Using standard procedures, left ventriculography was performed. A 6F Pigtail was used to cross the aortic valve and measure pressures in the left ventricle. An injection of Isovue contrast was used for left ventriculography in the 30 degree GRAJEDA projection. The Access location was: ?? > Right Femoral Artery The Largest Arterial Sheath/Cath placed was ??6F The Hemostasis method used was: ??> Angioseal SELECTED MEDICATION ADMINISTERED DURING THE PROCEDURE: ??FENTANYL, VERSED ? (Please see PhysioLog report for complete list of medications used.) ?--- RESULTS --- HEMODYNAMICS ??Pressures: ?Site ?Systolic ??Diasto ??Mean ?lic ?AoA ? 121 ? 72 ?94 ?LV ?117 ? 15 ?PBA ? 112 ? 65 ?85 ?PBV ? 113 ? 8 ? 14 The left ventricular end diastolic pressure was normal. LEFT VENTRICULOGRAPHY The left ventricular function is normal. ??There is no mitral regurgitation. FEMORAL ANGIOGRAPHIC FINDINGS The right common femoral artery was normal in size and had no significant angiographic lesions. CORONARY ANGIOGRAPHIC FINDINGS Left Main Artery: The Left Main is normal in size and has no significant angiographic lesions. Left Anterior Descending Artery: The LAD is normal in size and has no significant angiographic lesions. Circumflex Artery: The Circumflex is normal in size and has no significant angiographic lesions. Ramus Intermedius Artery: The ramus is normal in size and has no significant angiographic lesions. Right Coronary Artery: The RCA is normal in size and has no significant angiographic lesions. ??The RCA is nondominant. Referring Physician: RICKI PEÑALOZA MD Referring Physician 2: SHERICE QUIJANO MD Diagnostic Attending: Cash Zaman MD As the attending, supervising analytics analyst, I was present for the entire procedure. Signature date/time: 11/22/2005 11:41:01 AM Procedure Note 02/18/2010 [facility] [address] [place] [address] Final Diagnostic Cardiovascular Catheterization Report --- SUMMARY OF RESULTS --- > Coronary angiography demonstrates no significant epicardial coronaryartery disease. > Left ventriculography revealed normal left ventricular function.Regional wall motion abnormalities were absent. > Diagnostic cardiac catheterization was performed without anysignificant complications. --- PLAN --- Ongoing primary prevention --- PATIENT PRESENTATION --- The patient is a 55 year old male with the following indications: The patient has the following Comorbidities/Risk Factors:Hyperlipidemia, Hypertension. : 1950 Sex: male Height: 180.3cm Weight: 113.6kg BSA:2.32 Allergies: NKA Pre-Library Attendant Values: HCT: 47.0 Platelets: 203.0 Creatinine: 1.2 --- PROCEDURE --- DIAGNOSTIC CARDIAC PROCEDURE Under local anesthesia, the right femoral artery was accessed with a 6Fsheath using modified Seldinger technique. A 6F JL4 catheter was introducedand positioned in the ascending aorta. Selective coronary arteriography was then performed using a 6F [id number] to engage the left coronary artery and a 6F JR4 catheter to engage theright coronary artery. Right and left coronary arteriography were performedin multiple views. Left heart cath was performed according to standard procedure. A 6FPigtail was used to cross the aortic valve and measure pressures in the leftventricle. Using standard procedures, left ventriculography was performed. A 6FPigtail was used to cross the aortic valve and measure pressures in the leftventricle. An injection of Isovue contrast was used for left ventriculography in the30 degree GRAJEDA projection. The Access location was: > Right Femoral Artery The Largest Arterial Sheath/Cath placed was 6F The Hemostasis method used was: > Angioseal SELECTED MEDICATION ADMINISTERED DURING THE PROCEDURE: FENTANYL, VERSED (Please see PhysioLog report for complete list of medicationsused.) --- RESULTS --- HEMODYNAMICS Pressures: Site Systolic Diasto Mean lic AoA 121 72 94 LV 117 15 PBA 112 65 85 PBV 113 8 14 The left ventricular end diastolic pressure was normal. LEFT VENTRICULOGRAPHY The left ventricular function is normal. There is no mitralregurgitation. FEMORAL ANGIOGRAPHIC FINDINGS The right common femoral artery was normal in size and had nosignificant angiographic lesions. CORONARY ANGIOGRAPHIC FINDINGS Left Main Artery: The Left Main is normal in size and has no significant angiographic lesions. Left Anterior Descending Artery: The LAD is normal in size and has no significant angiographic lesions. Circumflex Artery: The Circumflex is normal in size and has nosignificant angiographic lesions. Ramus Intermedius Artery: The ramus is normal in size and has nosignificant angiographic lesions. Right Coronary Artery: The RCA is normal in size and has no significant angiographic lesions. The RCA is nondominant. Referring Physician: FLOYD WETZEL,RICKI Friend Referring Physician 2: SHERICE QUIJANO MD Diagnostic Attending: Cash Zaman MD As the attending, supervising analytics analyst, I was present for the entire procedure. Signature date/time: 11/22/2005 11:41:01 AM [place] Provider [id number] CARDIAC CATH ORDERABLES documented in this encounter Visit Diagnoses Not on filedocumented in this encounter
--- OUTSIDE RECORDS SUMMARY | 2024-03-27 17:29 | XMS_ITS ---
Author Organization Unknown Address [address] [place] [phone] Phone Care Team Providers Care Melt Room Operator Name Role Phone OBED Malik Attending Unavailable PARESH Marie Primary Unavailable Social History Type Status Start Date End Date Code Code Syst em Smoking History Never smoker (Never Smoked) [id number] SNOMED CT Sex Male Hospital Discharge Instructions Should you have any questions prior to discharge, please contact a member of your healthcare team. If you have left the hospital and have any questions, please contact your primary care physician. Reason For Referral No Data Found Plan of Treatment Exposure 07/19/2020 [facility] NIGHT 10/15/2022 Encounters Encounter Diagnosis Start Date Code Code Sys tem Obstructive sleep apnea syndrome 11/04/2022 [id number] SNOMED-CT Personal Care Team Section Performer Name Performer Role Active Date Inactive Da mc
--- OUTSIDE RECORDS SUMMARY | 2024-03-27 17:29 | XMS_ITS | Continuity of Care Document ---
Author Organization [facility] Address [address] [place] [address] Care Team Providers Care Repairer Switchgear Name Role Phone [facility] Urologist ALIDA YBARRA Workers Compensation Specialist [phone] SERENA MARRERO Multimedia Coordinator Assessment No assessment recorded. Plan of Treatment Reminders Order Date Submit Date Provider Last Modified By Organization Details Last Modified Time Details Appointments Nurse Visit 20 2023 11:00A M [facility] Not available Not available Not available Follow Up 2023 10:40A M JESSIE VELASCO, Not available Not available Not available Lab None recorded. Referral dermatolo gist referral - Hx of BCC and AKs. Right face lesion growing x 6 months, concernin g for BCC, heaped borders and central ulceratio n. [address] Marrero in the past, neo myles to transfer care 2023 024 [facility] (Dermatology) , [address] [place] [address], [id number], 03/27/2024 10:58:19 Procedures None recorded. Surgeries None recorded. Imaging None recorded. Medication Orders triamcino lone acetonide 0.1 % topical ointment 2023 024 [id number], [address], [place], [place], [phone], 02/24/2024 14:57:46 Patient TargetsNo targets recorded. Patient InstructionsNo instructions recorded. Reason for Referral Multimedia Coordinator Referral for L esion of skin of face Hx of BCC and AKs. Right face lesion growing x 6 months, concerning for BCC, heaped borders and central ulceration. [address] Marrero in the past, requesting to transfer care Referring Physician: Jessie Velasco, Internal Medicine, Encounter Date: 02/24/2024 Problems Name Status Onset Date Resolution Date Notes Provider Name and Address Organization Details Recorded Time Essential hypertension Active 2008 Problem Code: I10; Problem Code Type: ICD-10; MD Jerald [address], [place], [address] , [facility] 4 20:04:33 Insect bite, nonvenomous, of back Completed 201407/23/2015 Problem Code: S20.462A; Problem Code Type: ICD-10; Not Available [facility] 3 05:10:25 Cough variant asthma Completed 201512/08/2015 Problem Code: J45.991; Problem Code Type: ICD-10; Not Available [facility] 3 05:10:25 Cough Completed 201501/07/2016 12/18/2015 - Comments only - 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 - finishing his prednisone taper- feels much better, no further cough, no fever; doing well Problem Code: R05; Problem Code Type: ICD-10; Not Available [facility] 3 05:10:25 Nodule on toe Completed 201504/21/2016 Not Available [facility] 3 05:10:25 Erectile dysfunction Active 2015 Problem Code: F52.21; Problem Code Type: ICD-10; MD Jerald [address], [place], [address] , [facility] 4 20:04:33 Cardiac arrhythmia Completed 201712/17/2017 Problem Code: I49.9; Problem Code Type: ICD-10; Not Available [facility] 3 05:10:25 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 Problem Code: E11.40; Problem Code Type: ICD-10; MD Jerald PAZ [address], [facility] [address] , [facility] 4 20:04:32 Chronic kidney disease stage 3 Active [address], [facility] [address] , [facility] 4 20:04:32 Atrial premature complex Active 2018 Problem Code: I49.1; Problem Code Type: ICD-10; MD Jerald PAZ [address], [facility] [address] , [facility] 4 20:04:32 Diastasis of muscle Active 202012/19/2020 - Comments only - Aleida Sims APRN - Explained pathophysio logy, weight loss, printed exercises given out Problem Code: M62.08; Problem Code Type: ICD-10; MD Jerald [address], [facility] [address] , [facility] 4 20:04:32 Raynaud's disease Active 2020 Problem Code: I73.00; Problem Code Type: ICD-10; MD Jerald [address]Z [address], [facility] [address] , [facility] 4 20:04:32 Atherosclerosis of coronary artery without angina pectoris Active 2020 Problem Code: I25.10; Problem Code Type: ICD-10; MD Jerald PAZ [address], [facility] [address] , [facility] 4 20:04:32 Aortic stenosis, non-rheumatic Active 2020 Problem Code: I35.0; Problem Code Type: ICD-10; MD Jerald PAZ [address], [facility] [address] , [facility] 4 20:04:32 Torin hematuria Active 2021 Problem Code: R31.0; Problem Code Type: ICD-10; MD Jerald PAZ [address], [facility] [address] , [facility] 4 20:04:32 Atrial flutter Active 2021 Problem Code: I48.92; Problem Code Type: ICD-10; MD Jerald PAZ Dr, [address] 4 20:04:32 Right Achilles tendinitis Active 2022 Problem Code: M76.61; Problem Code Type: ICD-10; MD Jerald PAZ [address], [place] [address] , [facility] 4 20:04:32 Dupuytren's disease of palm Active 2022 Problem Code: M72.0; Problem Code Type: ICD-10; MD Jerald PAZ [address], [place] [address] , [facility] 4 20:04:32 Incoordination Active 2022 Problem Code: R27.9; Problem Code Type: ICD-10; MD Jerald PAZ Dr, [facility] [address] , [facility] 4 20:04:32 Hyperlipidemia Active 2005 Problem Code: E78.5; Problem Code Type: ICD-10; MD Jerald PAZ Dr, [facility] [id number] [place] [address] 4 20:04:32 Type 2 diabetes mellitus without complication Active 2008 Problem Code: E11.9; Problem Code Type: ICD-10; MD Jerald PAZ Dr, [facility] [address] , [facility] 4 20:04:32 Acute non-ST segment elevation myocardial infarction Completed 202006/01/2023 Problem Code: I21.4; Problem Code Type: ICD-10; Not Available [facility] 3 05:10:28 Heart murmur Completed 202008/31/2021 Problem Code: R01.1; Problem Code Type: ICD-10; Not Available [facility] 3 05:10:28 Hypertensive disorder Completed 200806/01/2023 Not Available [facility] 3 05:10:28 Blood in urine Completed 202101/14/2022 Problem Code: R31.9; Problem Code Type: ICD-10; Not Available [facility] 3 05:10:28 Fatigue Completed 202109/13/2022 Problem Code: R53.83; Problem Code Type: ICD-10; Not Available [facility] 3 05:10:28 Type 2 diabetes mellitus Completed 200806/01/2023 Not Available [facility] 3 05:10:29 Exposure to communicable disease Completed 201908/21/2020 Problem Code: Z20.828; Problem Code Type: ICD-10; Not Available [facility] 3 05:10:29 Obstructive sleep apnea syndrome Active [address], [facility] [address] , [facility] 4 20:04:46 Microalbuminuri a Active [address], [place], [address] , [facility] 4 20:06:38 Cobalamin deficiency Active [address], [place], [address] , [facility] 4 11:30:45 Paroxysmal atrial fibrillation Active 2023 Kaitlin beltrán, [facility] 4 15:41:08 Multiple actinic keratoses Active [address], [place] [id number] [place] [address] 4 14:51:29 Basal cell carcinoma of skin Active [address], [facility] [address] [place] [address] 4 14:54:42 Notes:*Problem Name: Micralb uminuria *ICD-10 Codes: *Problem Status: inactive *Comments: *Note Date: 06/03/2014 Problem Notes None recorded. Medical Equipment None Reported. Allergies Allergen ID Allergen Name Allergen Category Reaction Reaction Severity Criticality Documentation Date Start Date Code Code System Note Provider Name and Address Organization Details Recorded Time 45398 Product containin g beta adrenergi c receptor antagonis t (product) medicatio n other moderate Not available 12/19/20232022 19845 009 SNOMED Fatig ue, rich cardi a Kaitlin beltrán, [facility] 4 15:40:54 Medications Name Sig Start Date Stop Date Status Note LastModified by Organization Details LastModified Time losartan 50 mg tablet Take 1 tablet by mouth once a day 2023 active Not Available Not Available Not Avai lable atorvasta tin 40 mg tablet Take 1 tablet by mouth every night 2023 active Not Available Not Available Not Avai lable metformin 500 mg tablet Take 1 tab by mouth twice daily 2017 active Not Available Not Available Not Avai lable carvedilo l 6.25 mg tablet Take 1 tablet by mouth twice a day 09/13 completed Not Available Not Available Not Available prednison e 10 mg tablet 6 tabs qd x 3 days 4 tab qd x 3 days 2 tabs qd x 3 days 1 tab qd x 3 days 04/07 completed Not Available Not Available Not Available Toprol XL 100 mg tablet,ex tended release 1 TAB QD 05/23 completed Not Available Not Available Not Available nitroglyc arash 0.3 mg sublingua l tablet as needed active Rx by cardiolo gist Not Available Not Available Not Available fluoroura cil 5 % topical cream Apply twice a day 08/03 completed Not Available Not Available Not Available Viagra 50 mg tablet Take 1/4 -1/2 tabby mouth prior to intercou rse as needed 07/07 completed Not Available Not Available Not Available amlodipin e 5 mg tablet Take 1 tablet by mouth once a day 08/31 completed Not Available Not Available Not Available Plavix 75 mg tablet Take 1 tablet by mouth once a day 01/12 completed Not Available Not Available Not Available aspirin 81 mg tablet,de layed release 01/04 completed Not Available Not Available Not Available tamsulosi n 0.4 mg capsule Take 1 capsule by mouth once a day active Not Available Not Available No t Available metformin 1,000 mg tablet Take 1 tablet by mouth twice a day 2023 active Not Available Not Available Not Avai lable triamcino lone acetonide 0.1 % topical ointment APPLY THIN LAYER TOPICALL Y TO THE AFFECTED AREA TWICE DAILY active Not Available Not Available No t Available lisinopri l 10 mg tablet Take 1 tablet by mouth every day 06/18 completed Not Available Not Available Not Available Qvar 40 mcg/actua tion Metered Aerosol oral inhaler Inhale 2 puffs by mouth twice daily 10/14 completed Not Available Not Available Not Available losartan 25 mg tablet Take 1 tablet by mouth once a day 01/05 completed Not Available Not Available Not Available diltiazem CD 120 mg capsule,e xtended release 24 hr TAKE 1 CAPSULE BY MOUTH DAILY active Not Available Not Available No t Available aspirin 81 mg tablet Take 1 tablet once a day 08/03 completed Not Available Not Available Not Available Baby Aspirin 81 mg chewable tablet 1 qd 2010 active Not Available Not Available Not Avai lable Viagra 100 mg tablet Take 1 by mouth as needed 08/03 completed Not Available Not Available Not Available diltiazem 30 mg tablet TAKE 1 TABLET BY MOUTH FOUR TIMES DAILY NEEDED FOR ATRIAL FIBRILLA ITON active Not Available Not Available No t Available losartan 100 mg tablet 1 tab a day 2018 active Not Available Not Available Not Avai lable doxycycli ne hyclate 100 mg tablet 2 tablets PO 10/20 completed Not Available Not Available Not Available OneTouch UltraSoft Lancets Use three times a day 07/11 completed Not Available Not Available Not Available Proventil HFA 2 puffs q4-6 hrs 04/15 completed Not Available Not Available Not Available One Touch Test Strips 1 inj UAD 2014 active Not Available Not Available Not Avai lable ProAir HFA 90 mcg/actua tion aerosol inhaler 1-2 every four to six hours as needed 08/03 completed Not Available Not Available Not Available OneTouch UltraMini kit Dx: E11.9 2018 active Not Available Not Available Not Avai lable hydrochlo rothiazid e 12.5 mg tablet Take 1 tab by mouth daily 10/08 completed Not Available Not Available Not Available OneTouch Verio test strips TID E11.9 2016 active Not Available Not Available Not Avai lable OneTouch Delica Lancets 30 gauge test tid E11.9 2018 active Not Available Not Available Not Avai lable Eliquis 5 mg tablet Take 1 tablet by mouth twice a day active Not Available Not Available No t Available Victoza 3-Alex 0.6 mg/0.1 mL (18 mg/3 mL) subcutane ous pen injector Inject 0.6 mg subcutan eously once a day replaces Trulicit y 12/01 completed 09/30/22 -PT refuses- cancelle d rx at [facility]- keeping in med list [facility] Not Available Not Available Not Available Trulicity 1.5 mg/0.5 mL subcutane ous pen injector Inject 1.5 mg every week by subcutan eous route. 2023 active Not Available Not Available Not Avai lable Trulicity 0.75 mg/0.5 mL subcutane ous pen injector Inject 0.5ml (=0.75MG ) subcutan eously every week as directed 2023 active Not Available Not Available Not Avai lable cyanocoba babatunde (vitamin B-12) 1,000 mcg capsule Take 1 capsule by mouth once a day 2022 active Not Available Not Available Not Avai lable Vitals Date Recorded Body height Body mass index (BMI) Body weight Body temperature Oxygen saturation Oxygen saturation in Arterial blood by Pulse oximetry Heart rate Systolic blood pressure Diastolic blood pressure Provider Name and Address Organization Details Last Updated DateTime 4 179.832 cm 30.7 kg/m2 42406.2 9 g 97.3 [degF] 96 % 96 % 72 /min 120 mm[Hg] 64 mm[Hg] Salena Zimmer LPN [facility], [facility] 14:37:34 Social History Question Answer Notes LastModified by Organizat ion Details LastModified Time Tobacco Smoking Status Never Smoker Salena Zimmer LPN [facility], [facility], [facility] 02/24/2024 14:36:00 What Was The Date Of Your Most Recent Tobacco Screening? 02/24/2024 Information not available 02/24/2024 Sex: Male Functional Status None recorded. Mental Status None recorded. Family History Relationship Description Onset Age of this Age Resolved Age Notes Father Family history of malignant neoplasm of lung smoker Notes:*Problem: His mother d ied in her mid-50's from some type of rare blood disorder which led to gangrenous bowels. His father @ 83; had smoked and had lung ca.; also hyperlipidemia and hypertension. Both parents had AODM. Siblings: 1 brother, 3 sisters; 1 w. [facility] aorta(?) - believes his mother had this condition Children: 3, all well and in good health. Medical History No medical history recorded. Immunizations Vaccine Type Date Status Provider Name and Address Organization Details Recorded Time Td (adult), 5 Lf tetanus toxoid, preservative free, adsorbed 10/14/2016 completed Not Available [facility] 07/15/2023 05:09:59 zoster live 08/04/2012 completed Not Available [facility] 07/15/2023 05:09:59 Pneumococcal conjugate PCV 13 06/18/2016 completed Not Available [facility] 07/15/2023 05:09:59 Td(adult) unspecified formulation 05/16/2006 completed Not Available [facility] 07/15/2023 05:09:59 Td(adult) unspecified formulation 07/04/2006 completed Not Available [facility] 07/15/2023 05:09:59 Influenza, split virus, quadrivalent, preservative 05/25/2017 completed Not Available [facility] 07/15/2023 05:09:59 Influenza, split virus, quadrivalent, preservative 07/07/2018 completed Not Available [facility] 07/15/2023 05:10:00 Influenza, MDCK, quadrivalent, PF 08/08/2019 completed Not Available [facility] 07/15/2023 05:10:00 Influenza, high-dose, quadrivalent, PF 05/17/2022 completed Not Available [facility] 07/15/2023 05:10:00 COVID-19, mRNA, LNP-S, PF, 100 mcg/0.5mL dose or 50 mcg/0.25mL dose 12/25/2021 completed Not Available [facility] 07/15/2023 05:10:00 COVID-19, mRNA, LNP-S, bivalent, PF, 30 mcg/0.3 mL dose 01/12/2023 completed Not Available [facility] 07/15/20 05:10:00 COVID-19, mRNA, LNP-S, bivalent, PF, 30 mcg/0.3 mL dose 05/21/2022 completed Not Available [facility] 07/15/20 05:10:01 pneumococcal polysaccharide PPV23 05/23/2020 completed Not Available [facility] 2022 05:10:01 pneumococcal polysaccharide PPV23 08/04/2012 completed Not Available [facility] 2022 05:10:01 yellow fever live 05/16/2006 completed Not Available [facility] 07/15/2023 05:10:01 Hep A, unspecified formulation 05/16/2006 completed Not Available [facility] 07/15/2023 05:10:01 Hep A, unspecified formulation 07/04/2006 completed Not Available [facility] 07/15/2023 05:10:01 polio, unspecified formulation 05/16/2006 completed Not Available [facility] 07/15/2023 05:10:02 polio, unspecified formulation 07/04/2006 completed Not Available [facility] 07/15/2023 05:10:02 typhoid, unspecified formulation 05/16/2006 completed Not Available [facility] 07/15/2023 05:10:02 Influenza, high-dose, quadrivalent, PF 07/11/2023 completed Not Available [facility] 09/16/2023 05:30:50 COVID-19, mRNA, LNP-S, PF, chayo-sucrose, 30 mcg/0.3 mL 07/11/2023 completed Not Available [facility] 09/16/2023 05:30:51 Past Encounters Encounter ID Performer Location Encounter Start Date Encounter Closed Date Diagnosis/Indication Diagnosis SNOMED-CT Code [id number] JESSIE VELASCO MD [address] [address] 02/24/2024 14:27:03 02/24/2024 14:59:51 Eczema 40002260 Multiple a ctinic keratoses 283719293 Lesion of skin of face 993759122295 Basal cell carcinoma of skin 930400379 Health Concerns Section Related Observation LastModified by Organization Detai ls LastModified Time None Recorded Concern Status LastModified by Organization Details LastModified Time None Recorded Payers Encounter Date Sequence Insurance Name Policy Number Policy Rico Covered Member ID Rico Member ID Guarantor Name 02/24/2024 2 [place] [employer] [facility] [id number] [facility] 02/24/2024 1 [id number] P[place]) [facility] [id number] [facility] Notes Date Note Type Note Provider Name and Address Organization Details Recorded Time 02/24/2024 text/html HPI Notes: Here for acute visit for rash behind the knees bilaterally x 4 months. It is asymptomatic, his noticed it. He has been using a salve on it that isn't helping, not sure what's in it, some kind of moisturizing cream he thinks. He has had multiple actinic keratoses and BCC in the past, has seen Dr. marrero every 6 months and typically has a few spots frozen off. There is a spot on his episcopal that has been growing x 6 mo, she saw it and did not treat it last OV. MD Jerald PAZ [address], [place], [address], [facility]. 02/26/2024 13:56:08
--- OUTSIDE RECORDS SUMMARY | 2024-03-27 17:29 | XMS_ITS | Data Portability ---
Author Organization [facility], [facility] [place] [address] Care Team Providers Care Career Resource Specialist Name Role Phone [facility] Urologist ALIDA YBARRA [employer] [phone] SERENA MRARERO Radio Antenna Installer Assessment Encounter Date Assessment Date Assessment LastModified by Organization Details LastModified Time 10/10/2023 10/10/2023 The total time devoted to today's encounter, including both the qadk-as-dyoi time with the patient and/or family/caregi radha and tvm-uwkb-rl-f paul time I personally spent is 32 minutes. Not available 10/11/2023 11:19:12 01/06/2024 01/06/2024 The total time devoted to today's encounter, including both the dbuh-vd-txme time with the patient and/or family/caregi radha and zfk-ernn-vy-f paul time I personally spent is 32 minutes. Not available 01/06/2024 09:18:20 Plan of Treatment Reminders Order Date Submit Date Provider Last Modified By Organization Details Last Modified Time Details Appointments Nurse Visit 2023 11:00A M [facility] Not available Not available Not available Follow Up 2023 10:40A M JESSIE VELASCO, Not available Not available Not available Lab hemoglobi n A1C, fingersti ck 2023 0205/2 024 [email or web address] [facility], [address] [facility], [place], [address], 10/10/2023 12:34:39 CMP, serum or plasma 2023 024 [facility] (Registration ), [address] [place] [address] [place], [address], 03/27/2024 15:56:32 CBC 2023 024 [facility] (Registration ), [address] [place] [address] [facility] [place], [address], 03/27/2024 15:01:03 microalbu min/creat inine, ratio, urine 2023 024 [email or web address] [facility] (Registration ), [address] [place] [address] [place], [address], 01/13/2024 07:22:56 hemoglobi n A1C, fingersti ck [address], 4 [facility], [place], [address], 01/06/2024 10:09:21 HbA1c (hemoglob in A1c), blood 2023 024 [facility] (Registration ), [address] [place] [address] [place], [address], 03/27/2024 11:35:23 lipid panel, blood 2023 024 [facility] (Registration ), [address] [place] [address] [place], [address], 03/27/2024 11:35:24 venipunct ure [email or web address] [address] [facility] (Registration ), [address] [place] [address] [place], [address], 03/27/2024 11:22:24 Referral dermatolo gist referral - Hx of BCC and AKs. Right face lesion growing x 6 months, concernin g for BCC, heaped borders and central ulceratio n. [address] Marrero in the past, requestin g to transfer care 2023 [facility] (Dermatology) , [address] [place] [address], [address], 03/27/2024 10:58:19 Procedures None recorded. Surgeries None recorded. Imaging None recorded. Medication Orders losartan 50 mg tablet 2023 [facility], [address] [facility], [address], [place], [address], 01/06/2024 09:43:31 metformin 1,000 mg tablet 2023 [facility], [address] [facility], [address], [place], [address], 01/06/2024 09:43:26 Trulicity 1.5 mg/0.5 mL subcutane ous pen injector 2023 024 [facility], [address] [facility], [address], [place], [address], 01/06/2024 09:43:29 triamcino lone acetonide 0.1 % topical ointment 2023 [id number], [address], [place], [place], [id number], 02/24/2024 14:57:46 Patient TargetsNo targets recorded. Patient InstructionsNo instructions recorded. Reason for Referral Radio Antenna Installer Referral for L esion of skin of face Hx of BCC and AKs. Right face lesion growing x 6 months, concerning for BCC, heaped borders and central ulceration. [address] Marrero in the past, requesting to transfer care Referring Physician: Jessie Velasco, Internal Medicine, Encounter Date: 02/24/2024 Results Created Date Observation Date Name Description Value Unit Range Abnormal Flag LastModifiedBy Organization Detail LastModifiedTime 10/10/19 24 10/10/2023 hemog lobin A1Cruth rsyohannes k HGBA1C 6.5 % <5.7 Not Available [address], [address], 10/10/2023 11:43:10 01/06/20 24 01/06/2024 MICRO ALBUM IN microalbumin 98.2 mg/L 1.30-2 0.0 high Not Available [facility] [address] [place], [address] 01/06/2024 14:54:49 01/06/20 24 01/06/2024 MICRO ALBUM IN creatinine urine 75.75 mg/dL Not Available [facility] [address] [place] [address] [place], [address] 01/06/2024 14:54:49 01/06/20 24 01/06/2024 MICRO ALBUM IN microalb ug/mg crea 129.6 ug/mg _cr Not Available [address] [place], [address] 01/06/2024 14:54:49 01/06/20 24 01/06/2024 hemog lobin A1C, ruth rstic k hemoglobin A1C 6.4 % <5.7 Not Available [address], [address], 01/06/2024 09:18:22 11/29/19 24 11/29/2023 trans -thor acic echoc ardio gram (TTE) (PROC ) No observ ation record ed. [email or web address] [facility] [address], [place], [address], 11/29/2023 13:25:20 Result Notes None recorded. Problems Name Status Onset Date Resolution Date Notes Provider Name and Address Organization Details Recorded Time Essential hypertension Active 2008 Problem Code: I10; Problem Code Type: ICD-10; MD [address], [place], [address] , [facility] 4 20:04:33 Insect bite, nonvenomous, of back Completed 201407/23/2015 Problem Code: S20.462A; Problem Code Type: ICD-10; Not Available [facility] 3 05:10:25 Cough variant asthma Completed 201512/08/2015 Problem Code: J45.991; Problem Code Type: ICD-10; Not Available [facility] 3 05:10:25 Cough Completed 201501/07/2016 12/18/2015 - Comments only - 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 - finishing his prednisone taper- feels much better, no further cough, no fever; doing well Problem Code: R05; Problem Code Type: ICD-10; Not Available [facility] 3 05:10:25 Nodule on toe Completed 201504/21/2016 Not Available [facility] 3 05:10:25 Erectile dysfunction Active 2015 Problem Code: F52.21; Problem Code Type: ICD-10; MD [address], [place], [address] , [facility] 4 20:04:33 Cardiac arrhythmia Completed 201712/17/2017 Problem Code: I49.9; Problem Code Type: ICD-10; Not Available [facility] 3 05:10:25 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 4 20:04:32 Chronic kidney disease stage 3 Active [address], [place], [address] , [facility]. 4 20:04:32 Atrial premature complex Active 2018 Problem Code: I49.1; Problem Code Type: ICD-10; MD [address], [place], [address] , [facility] 4 20:04:32 Diastasis of muscle Active 202012/19/2020 - Comments only - Aleida Bethany KAI - Explained pathophysio logy, weight loss, printed exercises given out Problem Code: M62.08; Problem Code Type: ICD-10; MD Jerald PAZ [address], [place] [address] , [facility] 4 20:04:32 Raynaud's disease Active 2020 Problem Code: I73.00; Problem Code Type: ICD-10; MD Jerald [address]Z [address], [place] [address] , [facility] 4 20:04:32 Atherosclerosis of coronary artery without angina pectoris Active 2020 Problem Code: I25.10; Problem Code Type: ICD-10; MD Jerald PAZ [address], [place] [address] , [facility] 4 20:04:32 Aortic stenosis, non-rheumatic Active 2020 Problem Code: I35.0; Problem Code Type: ICD-10; MD Jerald PAZ Dr, [facility] [address] , [facility] 4 20:04:32 Torin hematuria Active 2021 Problem Code: R31.0; Problem Code Type: ICD-10; MD Jerald PAZ [address], [facility] [address] , [facility] 4 20:04:32 Atrial flutter Active 2021 Problem Code: I48.92; Problem Code Type: ICD-10; MD Jerald PAZ Dr, [facility] [address] , [facility] 4 20:04:32 Right Achilles tendinitis Active 2022 Problem Code: M76.61; Problem Code Type: ICD-10; MD Jerald PAZ Dr, [facility] [address] [place] [address] 4 20:04:32 Dupuytren's disease of palm Active 2022 Problem Code: M72.0; Problem Code Type: ICD-10; MD Jerald PAZ Dr, [address] 4 20:04:32 Incoordination Active 2022 Problem Code: R27.9; Problem Code Type: ICD-10; MD Jerald PAZ Dr, [place] [address] , [facility] 4 20:04:32 Hyperlipidemia Active 2005 Problem Code: E78.5; Problem Code Type: ICD-10; MD Jerald PAZ Dr, [place] [id number] [place] [address] 4 20:04:32 Type 2 diabetes mellitus without complication Active 2008 Problem Code: E11.9; Problem Code Type: ICD-10; MD Jerald PAZ Dr, [facility] [address] , [facility] 4 20:04:32 Acute non-ST segment elevation myocardial infarction Completed 202006/01/2023 Problem Code: I21.4; Problem Code Type: ICD-10; Not Available [facility] 3 05:10:28 Heart murmur Completed 202008/31/2021 Problem Code: R01.1; Problem Code Type: ICD-10; Not Available [facility] 3 05:10:28 Hypertensive disorder Completed 200806/01/2023 Not Available [facility] 3 05:10:28 Blood in urine Completed 202101/14/2022 Problem Code: R31.9; Problem Code Type: ICD-10; Not Available [facility] 3 05:10:28 Fatigue Completed 202109/13/2022 Problem Code: R53.83; Problem Code Type: ICD-10; Not Available [facility] 3 05:10:28 Type 2 diabetes mellitus Completed 200806/01/2023 Not Available [facility] 3 05:10:29 Exposure to communicable disease Completed 201908/21/2020 Problem Code: Z20.828; Problem Code Type: ICD-10; Not Available [facility] 3 05:10:29 Obstructive sleep apnea syndrome Active [address], [facility] [address] , [facility] 4 20:04:46 Microalbuminuri a Active [address], [facility] [address] , [facility] 4 20:06:38 Cobalamin deficiency Active [address], [facility] [address] [place] [address] 4 11:30:45 Paroxysmal atrial fibrillation Active 2023 Kaitlin beltrán, [facility] 4 15:41:08 Multiple actinic keratoses Active [address], [facility] [address] , [facility] 4 14:51:29 Basal cell carcinoma of skin Active [address], [facility] [address] , [facility] 4 14:54:42 Notes:*Problem Name: Candida malcolm *ICD-10 Codes: *Problem Status: inactive *Comments: *Note Date: 06/03/2014 Problem Notes None recorded. Procedures Surgical History None recorded. Imaging Results Imaging Date Name Status LastModified by Organization Details LastModified Time 11/29/2023 trans-thoracic echocardiogram (TTE) (PROC) completed [email or web address] [facility] [address], [place], [address], 11/29/2023 13:25:20 Procedure Notes None recorded. Medical Equipment None Reported. Allergies Allergen ID Allergen Name Allergen Category Reaction Reaction Severity Criticality Documentation Date Start Date Code Code System Note Provider Name and Address Organization Details Recorded Time 32978 Product containin g beta adrenergi c receptor antagonis t (product) medicatio n other moderate Not available 12/19/20232022 71777 009 SNOMED [facility]ig ue[facility] 4 15:40:54 Medications Name Sig Start Date [...] 09/30/22 -PT refuses- cancelle d rx at P- keeping in med list [facility] Not Available Not Available Not Available Trulicity 1.5 mg/0.5 mL subcutane ous pen injector Inject 1.5 mg every week by subcutan eous route. 2023 active Not Available Not Available Not Avai lable Trulicity 0.75 mg/0.5 mL subcutane ous pen injector Inject 0.5ml (=0.75MG ) subcutan eously every week as directed 04/23/ 2024 active Not Available Not Available Not Avai lable cyanocoba babatunde (vitamin B-12) 1,000 mcg capsule Take 1 capsule by mouth once a day 2022 active Not Available Not Available Not Avbinu sandy Vitals Date Recorded Body height Body mass index (BMI) Body weight Body temperature Oxygen saturation Oxygen saturation in Arterial blood by Pulse oximetry Heart rate Systolic blood pressure Diastolic blood pressure Provider Name and Address Organization Details Last Updated DateTime 4 179.832 cm 32.1 kg/m2 620133. 65 g 98.4 [degF] 100 % 100 % 49 /min 132 mm[Hg] 68 mm[Hg] Salena Zimmer LPN [facility] 4 11:27:57 Date Recorded Body height Body mass index (BMI) Body weight Body temperature Oxygen saturation Oxygen saturation in Arterial blood by Pulse oximetry Heart rate Systolic blood pressure Diastolic blood pressure Provider Name and Address Organization Details Last Updated DateTime 4 179.832 cm 32.2 kg/m2 493418. 53 g 97.4 [degF] 99 % 99 % 49 /min 134 mm[Hg] 60 mm[Hg] RADHA GARCIA MA [facility] 4 09:11:01 Date Recorded Body height Body mass index (BMI) Body weight Body temperature Oxygen saturation Oxygen saturation in Arterial blood by Pulse oximetry Heart rate Systolic blood pressure Diastolic blood pressure Provider Name and Address Organization Details Last Updated DateTime 4 179.832 cm 30.7 kg/m2 46068.2 9 g 97.3 [degF] 96 % 96 % 72 /min 120 mm[Hg] 64 mm[Hg] Salena Zimmer LPN [facility] 4 14:37:34 Social History Question Answer Notes LastModified by Organizat ion Details LastModified Time Tobacco Smoking Status Never Smoker Salena Zimmer LPN [facility] 02/24/2024 14:36:00 What Was The Date Of Your Most Recent Tobacco Screening? 02/24/2024 [email or web address] Information not available 02/24/2024 Sex: Male Functional [...] 1 brother, 3 sisters; 1 w. coral reef aorta(?) - believes his mother had this condition Children: 3, all well and in good health. Medical History No medical history recorded. Immunizations Vaccine Type Date Status Provider Name and Address Organization Details Recorded Time Td (adult), 5 Lf tetanus toxoid, preservative free, adsorbed 10/14/2016 completed Not Available [facility] 07/15/2023 05:09:59 zoster live 08/04/2012 completed Not Available [facility] 07/15/2023 05:09:59 Pneumococcal conjugate PCV 13 06/18/2016 completed Not Available [facility] 07/15/2023 05:09:59 Td(adult) unspecified formulation 05/16/2006 completed Not Available [facility] 07/15/2023 05:09:59 Td(adult) unspecified formulation 07/04/2006 completed Not Available [facility] 07/15/2023 05:09:59 Influenza, split virus, quadrivalent, preservative 05/25/2017 completed Not Available [facility] 07/15/2023 05:09:59 Influenza, split virus, quadrivalent, preservative 07/07/2018 completed Not Available [facility] 07/15/2023 05:10:00 Influenza, MDCK, quadrivalent, PF 08/08/2019 completed Not Available [facility] 07/15/2023 05:10:00 Influenza, high-dose, quadrivalent, PF 05/17/2022 completed Not Available [facility] 07/15/2023 05:10:00 COVID-19, mRNA, LNP-S, PF, 100 mcg/0.5mL dose or 50 mcg/0.25mL dose 12/25/2021 completed Not Available [facility] 07/15/2023 05:10:00 COVID-19, mRNA, LNP-S, bivalent, PF, 30 mcg/0.3 mL dose 01/12/2023 completed Not Available [facility] 07/15/20 05:10:00 COVID-19, mRNA, LNP-S, bivalent, PF, 30 mcg/0.3 mL dose 05/21/2022 completed Not Available [facility] 07/15/20 05:10:01 pneumococcal polysaccharide PPV23 05/23/2020 completed Not Available [facility] 2022 05:10:01 pneumococcal polysaccharide PPV23 08/04/2012 completed Not Available [facility] 2022 05:10:01 yellow fever live 05/16/2006 completed Not Available [facility] 07/15/2023 05:10:01 Hep A, unspecified formulation 05/16/2006 completed Not Available [facility] 07/15/2023 05:10:01 Hep A, unspecified formulation 07/04/2006 completed Not Available [facility] 07/15/2023 05:10:01 polio, unspecified formulation 05/16/2006 completed Not Available [facility] 07/15/2023 05:10:02 polio, unspecified formulation 07/04/2006 completed Not Available [facility] 07/15/2023 05:10:02 typhoid, unspecified formulation 05/16/2006 completed Not Available [facility] 07/15/2023 05:10:02 Influenza, high-dose, quadrivalent, PF 07/11/2023 completed Not Available [facility] 09/16/2023 05:30:50 COVID-19, mRNA, LNP-S, PF, chayo-sucrose, 30 mcg/0.3 mL 07/11/2023 completed Not Available [facility] 09/16/2023 05:30:51 Past Encounters Encounter ID Performer Location Encounter Start Date Encounter Closed Date Diagnosis/Indication Diagnosis SNOMED-CT Code [id number] JESSIE VELASCO MD [address] [address] 10/10/2023 11:08:40 10/10/2023 12:18:17 Essential hypertension 06607327 Obstructiv e sleep apnea syndrome 49575950 Atrial flutter 9205177 Chronic ki dney disease stage 3 622132889 Type 2 amy betes mellitus without complication 469664914 Cobalamin deficiency 190 353810 [id number] JESSIE VELASCO MD [address] [place] [address] 01/06/2024 09:00:22 01/06/2024 09:43:58 Type 2 diabetes mellitus without complication 283628401 Essential hypertension 07670805 Atrial flutter 6503591 Chronic ki dney disease stage 3 170859785 Cobalamin deficiency 190 760649 [id number] JESSIE VELASCO MD [address] [address] 02/24/2024 14:27:03 02/24/2024 14:59:51 Eczema 82016501 Multiple a ctinic keratoses 274203616 Lesion of skin of face 395069280081 Basal cell carcinoma of skin 835801645 [id number] Salena Zimmer LPN [address] [address] 03/27/2024 10:35:32 03/27/2024 11:09:09 Essential hypertension 80449251 Health Concerns Section Related Observation LastModified by Organization Detai ls LastModified Time None Recorded Concern Status LastModified by Organization Details LastModified Time None Recorded Advance Directives Directive None Recorded Payers Encounter Date Sequence Insurance Name Policy Number Policy Rico Covered Member ID Rico Member ID Guarantor Name 10/10/2023 2 [place] [facility] Ralph L Garnica [id number] Ralph L [place] 10/10/2023 1 [place] Ralph L Garnica [id number] Ralph L [place] 01/06/2024 2 [place] [facility] Ralph L Garnica [id number] Ralph L [place] 01/06/2024 1 [place] Ralph L Garnica [id number] Ralph L [place] 02/24/2024 2 [place] [facility] Ralph L Garnica [id number] Ralph L [place] 02/24/2024 1 [place]) Ralph L Garnica [id number] Ralph L [place] 03/27/2024 2 [place] [facility] Ralph L Garnica [id number] [facility] 03/27/2024 1 [place]) [facility] [id number] [facility] Notes Date Note Type Note Provider Name and Address Organization Details Recorded Time 10/10/2023 text/html HPI Notes: Here for f/u DM, HTN. He did get a new BP machine. Home BP is in the 129-141/60s-70s. He hasn't had any further episodes of rapid afib/flutter Since his ED visit in July. Cardiology started him as needed diltiazem for episodes in the future. he has not needed this. He is awaiting EP consultation. His hands have been bothering him in the cold, he puts warmers. He hasn't been walking as much partly because of this issue. He will be going downhill skiing this week. He also plans to join a gym in [place] and hopes to go twice a week. He has been getting back on track with healthier eating again, had a lot of bread, also some cookies over the holidays. Weight is perhaps up a little. 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 He has a sweet tooth and craves sweets in the evening. They have a new snack in the evening - pumpkin, flax seed, a small amount of maple syrup which satisfies the craving and is healtheir than previous choices. No GI symptoms. His urine has been cloudier since may, called his urologist, left a urine sample. No dysuria, no hematuria. no dyspnea, chest pain, palpitations, dizziness, pedal edema. 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 He does not think the MEE is a problem. He only snores on his back and he always sleeps on his side. He borrowed a CPAP machine from his son just to see what it felt like but this did not go well. JESSIE VELASCO MD [address], [place], [address], [facility]. 10/11/2023 11:19:23 01/06/2024 text/html HPI Notes: Here for f/u DM, HTN. Weight is unchanged. He just got home from a 2 week trip [place], ate out a lot. Has a hard time not having fries when they come with everything for example. He continues to deal with a sweet tooth, likes to bake things like brownies, has a hard time restricting these types of treats. He will be on the road again to [facility] soon with his . They do try to buy food to grocery stores and prepare meals that are healthier than the weight get at restaurants as much as possible. BP at home has been high up to 170s systolic in the morning. He saw Dr. Ybarra earlier this week blood pressure was around 140 there, she did not make any changes. He is planning an ablation does experience palpitations periodically but they are never prolonged.. No dizziness dyspnea or chest pain. No pedal edema. Generally feeling well. MD [address]erald [address], [place], [address], [facility]. 01/08/2024 13:11:23 02/24/2024 text/html HPI Notes: Here for acute [...] off. There is a spot on his synagogue that has been growing x 6 mo, she saw it and did not treat it last OV. MD Jerald [address], [place], [address], [facility]. 02/26/2024 13:56:08
--- OUTSIDE RECORDS SUMMARY | 2024-03-27 17:29 | XMS_ITS | Continuity of Care Document ---
Author Organization [facility] Address [address] [place] [address] Care Team Providers Care City Letter Carrier Name Role Phone [facility] Urologist ALIDA EUCEDA Public Relations Associate [phone] SERENA MELENDREZ Adjunct Political Science Instructor Assessment Encounter Date Assessment Date Assessment LastModified by Organization Details LastModified Time 01/06/2024 01/06/2024 The total time devoted to today's encounter, including both the gplk-il-vcqt time with the patient and/or family/caregi radha and tag-ecqd-uq-f paul time I personally spent is 32 minutes. remi Not available 01/06/2024 09:18:20 Plan of Treatment Reminders Order Date Submit Date Provider Last Modified By Organization Details Last Modified Time Details Appointments Nurse Visit 2023 11:00A M Frierson Nursing Staff Not available Not available Not available Follow Up 2023 10:40A Magui VELASCO, Not available Not available Not available Lab CMP, serum or plasma 2023 024 [facility] (Registration ), [address] [place] [address] [place], [address], 03/27/2024 15:56:32 CBC 2023 024 [facility] (Registration ), [address] [place] [address] [place], [address], 03/27/2024 15:01:03 microalbu min/creat inine, ratio, urine 05/03/ 2024 05/03/2 024 [email or web address] [facility] (Registration ), [address] [place] [address] , [place], [address], 01/13/2024 07:22:56 hemoglobi n A1C, fingersti ck [email or web address], [address] [facility], [place], [address], 01/06/2024 10:09:21 HbA1c (hemoglob in A1c), blood 2023 024 [facility] (Registration ), [address] [place] [address] [place], [address], 03/27/2024 11:35:23 lipid panel, blood 2023 024 [facility] (Registration ), [address] [place] [address] [place], [address], 03/27/2024 11:35:24 Referral None recorded. Procedures None recorded. Surgeries None recorded. Imaging None recorded. Medication Orders losartan 50 mg tablet 2023 024 [facility], [address] [place] [address], [address], [address], 01/06/2024 09:43:31 metformin 1,000 mg tablet 2023 024 [facility], [address] [place] [address], [facility], [place], [address], 01/06/2024 09:43:26 Trulicity 1.5 mg/0.5 mL subcutane ous pen injector 2023 024 [facility], [address] [place] [address], [address], [place], [address], 01/06/2024 09:43:29 Patient TargetsNo targets recorded. Patient InstructionsNo instructions recorded. Reason for Referral Adjunct Political Science Instructor Referral for L esion of skin of face Hx of BCC and AKs. Right face lesion growing x 6 months, concerning for BCC, heaped borders and central ulceration. [address] Melendrez in the past, requesting to transfer care Referring Physician: Jessie Velasco, Internal Medicine, Encounter Date: 02/24/2024 Results Created Date Observation Date Name Description Value Unit Range Abnormal Flag LastModifiedBy Organization Detail LastModifiedTime 01/06/20 24 01/06/2024 hemog lobin A1C, finge rstic k hemoglobin A1C 6.4 % <5.7 Not Available [address], [place], [address], 01/06/2024 09:18:22 Result Notes None recorded. Problems Name Status Onset Date Resolution Date Notes Provider Name and Address Organization Details Recorded Time Essential hypertension Active 2008 Problem Code: I10; Problem Code Type: ICD-10; JESSIE VELASCO MD [address], [place], [address] , [facility] 4 20:04:33 Insect bite, nonvenomous, of back Completed 201407/23/2015 Problem Code: S20.462A; Problem Code Type: ICD-10; Not Available [facility] 3 05:10:25 Cough variant asthma Completed 201512/08/2015 Problem Code: J45.991; Problem Code Type: ICD-10; Not Available [facility] 3 05:10:25 Cough Completed 201501/07/2016 12/18/2015 - Comments only - 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 SOFTWARE SUPPORT ANALYST - finishing his prednisone taper- feels much better, no further cough, no fever; doing well Problem Code: R05; Problem Code Type: ICD-10; Not Available [facility] 3 05:10:25 Nodule on toe Completed 201504/21/2016 Not Available [facility] 3 05:10:25 Erectile dysfunction Active 2015 Problem Code: F52.21; Problem Code Type: ICD-10; MD Jerald PAZ [address], [address] , [facility] 4 20:04:33 Cardiac arrhythmia Completed 201712/17/2017 Problem Code: I49.9; Problem Code Type: ICD-10; Not Available [facility] 3 05:10:25 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 Problem Code: E11.40; Problem Code Type: ICD-10; MD Jerald PAZ Dr, [place] [address] , [facility] 4 20:04:32 Chronic kidney disease stage 3 Active [address], [place] [address] , [facility] 4 20:04:32 Atrial premature complex Active 2018 Problem Code: I49.1; Problem Code Type: ICD-10; MD Jerald PAZ Dr, [place], [place], [address] [place] [address] , [facility] 4 20:04:32 Diastasis of muscle Active 202012/19/2020 - Comments only - Aleida Sims APRN - Explained pathophysio logy, weight loss, printed exercises given out Problem Code: M62.08; Problem Code Type: ICD-10; MD Jerald [address], [place], [address] , [facility] 4 20:04:32 Raynaud's disease Active 2020 Problem Code: I73.00; Problem Code Type: ICD-10; MD Jerald PAZ [address], [facility] [address] , [facility] 4 20:04:32 Atherosclerosis of coronary artery without angina pectoris Active 12/27/ 2021 Problem Code: I25.10; Problem Code Type: ICD-10; MD Jerald PAZ Dr, [facility] [address] , [facility] 4 20:04:32 Aortic stenosis, non-rheumatic Active 2020 Problem Code: I35.0; Problem Code Type: ICD-10; MD Jerald PAZ Dr, [facility] [address] , [facility] 4 20:04:32 Torin hematuria Active 2021 Problem Code: R31.0; Problem Code Type: ICD-10; MD Jerald PAZ Dr, [address] 4 20:04:32 Atrial flutter Active 2021 Problem Code: I48.92; Problem Code Type: ICD-10; MD Jerald PAZ [address], [facility] [address] , [facility] 4 20:04:32 Right Achilles tendinitis Active 2022 Problem Code: M76.61; Problem Code Type: ICD-10; MD Jerald PAZ Dr, [facility] [address] , [facility] 4 20:04:32 Dupuytren's disease of palm Active 2022 Problem Code: M72.0; Problem Code Type: ICD-10; MD Jerald PAZ Dr, [facility] [address] , [facility] 4 20:04:32 Incoordination Active 2022 Problem Code: R27.9; Problem Code Type: ICD-10; MD Jerald PAZ Dr, [facility] [address] [place] [address] 4 20:04:32 Hyperlipidemia Active 2005 Problem Code: E78.5; Problem Code Type: ICD-10; MD Jerald PAZ Dr, [facility] [address] , [facility] 4 20:04:32 Type 2 diabetes mellitus without complication Active 2008 Problem Code: E11.9; Problem Code Type: ICD-10; MD Jerald PAZ Dr, [facility] [address] , [facility] 4 20:04:32 Acute non-ST segment elevation myocardial infarction Completed 202006/01/2023 Problem Code: I21.4; Problem Code Type: ICD-10; Not Available [facility] 3 05:10:28 Heart murmur Completed 202008/31/2021 Problem Code: R01.1; Problem Code Type: ICD-10; Not Available [facility] 3 05:10:28 Hypertensive disorder Completed 200806/01/2023 Not Available [facility] 3 05:10:28 Blood in urine Completed 202101/14/2022 Problem Code: R31.9; Problem Code Type: ICD-10; Not Available [facility] 3 05:10:28 Fatigue Completed 202109/13/2022 Problem Code: R53.83; Problem Code Type: ICD-10; Not Available [facility] 3 05:10:28 Type 2 diabetes mellitus Completed 200806/01/2023 Not Available [facility] 3 05:10:29 Exposure to communicable disease Completed 201908/21/2020 Problem Code: Z20.828; Problem Code Type: ICD-10; Not Available [facility] 3 05:10:29 Obstructive sleep apnea syndrome Active [address], [facility] [address] , [facility] 4 20:04:46 Microalbuminuri a Active [address], [place] [address] [place] [address] 4 20:06:38 Cobalamin deficiency Active [address], [address] 4 11:30:45 Paroxysmal atrial fibrillation Active 2023 Kaitlin Benites [facility], [facility] 4 15:41:08 Multiple actinic keratoses Active [address], [address] 4 14:51:29 Basal cell carcinoma of skin Active [address], [address] 4 14:54:42 Notes:*Problem Name: Micralb uminuria *ICD-10 Codes: *Problem Status: inactive *Comments: *Note Date: 06/03/2014 Problem Notes None recorded. Medical Equipment None Reported. Allergies Allergen ID Allergen Name Allergen Category Reaction Reaction Severity Criticality Documentation Date Start Date Code Code System Note Provider Name and Address Organization Details Recorded Time 07440 Product containin g beta adrenergi c receptor antagonis t (product) medicatio n other moderate Not available 12/19/20232022 63942 009 SNOMED Fatig ue, rich cardi a Kaitlinciaran beltrán, [facility] 4 15:40:54 Medications Name Sig Start Date [...] Updated DateTime 4 179.832 cm 32.2 kg/m2 666959. 53 g 97.4 [degF] 99 % 99 % 49 /min 134 mm[Hg] 60 mm[Hg] RADHA GARCIA MA [facility] 4 09:11:01 Social History Question Answer Notes LastModified by Organizat ion Details LastModified Time Tobacco Smoking Status Never Smoker Salena Zimmer LPN null, [facility] 02/24/2024 14:36:00 What Was The Date Of Your Most Recent Tobacco Screening? 02/24/2024 [email or web address] Information not available 02/24/2024 Sex: Male Functional [...] preservative free, adsorbed 10/14/2016 completed Not Available [facility] 07/15/2023 05:09:59 zoster live 08/04/2012 completed Not Available [facility] 07/15/2023 05:09:59 Pneumococcal conjugate PCV 13 06/18/2016 completed Not Available [facility] 07/15/2023 05:09:59 Td(adult) unspecified formulation 05/16/2006 completed Not Available [facility] 07/15/2023 05:09:59 Td(adult) unspecified formulation 07/04/2006 completed Not Available [facility] 07/15/2023 05:09:59 Influenza, split virus, quadrivalent, preservative 05/25/2017 completed Not Available [facility] 07/15/2023 05:09:59 Influenza, split virus, quadrivalent, preservative 07/07/2018 completed Not Available [facility] 07/15/2023 05:10:00 Influenza, MDCK, quadrivalent, PF 08/08/2019 completed Not Available [facility] 07/15/2023 05:10:00 Influenza, high-dose, quadrivalent, PF 05/17/2022 completed Not Available [facility] 07/15/2023 05:10:00 COVID-19, mRNA, LNP-S, PF, 100 mcg/0.5mL dose or 50 mcg/0.25mL dose 12/25/2021 completed Not Available [facility] 07/15/2023 05:10:00 COVID-19, mRNA, LNP-S, bivalent, PF, 30 mcg/0.3 mL dose 01/12/2023 completed Not Available [facility] 07/15/20 05:10:00 COVID-19, mRNA, LNP-S, bivalent, PF, 30 mcg/0.3 mL dose 05/21/2022 completed Not Available [facility] 07/15/20 05:10:01 pneumococcal polysaccharide PPV23 05/23/2020 completed Not Available [facility] 2022 05:10:01 pneumococcal polysaccharide PPV23 08/04/2012 completed Not Available [facility] 2022 05:10:01 yellow fever live 05/16/2006 completed Not Available [facility] 07/15/2023 05:10:01 Hep A, unspecified formulation 05/16/2006 completed Not Available [facility] 07/15/2023 05:10:01 Hep A, unspecified formulation 07/04/2006 completed Not Available [facility] 07/15/2023 05:10:01 polio, unspecified formulation 05/16/2006 completed Not Available [facility] 07/15/2023 05:10:02 polio, unspecified formulation 07/04/2006 completed Not Available [facility] 07/15/2023 05:10:02 typhoid, unspecified formulation 05/16/2006 completed Not Available [facility] 07/15/2023 05:10:02 Influenza, high-dose, quadrivalent, PF 07/11/2023 completed Not Available [facility] 09/16/2023 05:30:50 COVID-19, mRNA, LNP-S, PF, chayo-sucrose, 30 mcg/0.3 mL 07/11/2023 completed Not Available [facility] 09/16/2023 05:30:51 Past Encounters Encounter ID Performer Location Encounter Start Date Encounter Closed Date Diagnosis/Indication Diagnosis SNOMED-CT Code [id number] JESSIE VELASCO MD [address] [address] 01/06/2024 09:00:22 01/06/2024 09:43:58 Type 2 diabetes mellitus without complication 652825773 Essential hypertension 62510351 Atrial flutter 5108157 Chronic ki dney disease stage 3 700945693 Cobalamin deficiency 190 408594 Health Concerns Section Related Observation LastModified by Organization Detai ls LastModified Time None Recorded Concern Status LastModified by Organization Details LastModified Time None Recorded Payers Encounter Date Sequence Insurance Name Policy Number Policy Rico Covered Member ID Rico Member ID Guarantor Name 01/06/2024 2 [place] [employer] Ralph [facility] [id number] Ralph L Keller 01/06/2024 1 [id number] ([place] PROVIDERS ONLY PPO) Ralph Garnica [id number] Ralphrt Justyna Garnica Notes Date Note Type Note Provider Name and Address Organization Details Recorded Time 01/06/2024 text/html HPI Notes: Here for f/u DM, HTN. Weight is unchanged. He just got home from a 2 week trip to the [place], ate out a lot. Has a hard time not having fries when they come with everything for example. He continues to deal with a sweet tooth, likes to bake things like brownies, has a hard time restricting these types of treats. He will be on the road again to [facility] soon with his . They do try to buy food to grocery stores and prepare meals that are healthier than the weight get at restaurants as much as possible. BP at home has been high up to 170s systolic in the morning. He saw Dr. Euceda earlier this week blood pressure was around 140 there, she did not make any changes. He is planning an ablation does experience palpitations periodically but they are never prolonged.. No dizziness dyspnea or chest pain. No pedal edema. Generally feeling well. JESSIE VELASCO MD [address], [place], [address], [facility], [facility]. 01/08/2024 13:11:23
--- OUTSIDE RECORDS SUMMARY | 2024-03-27 17:29 | XMS_ITS ---
Author Organization Unknown Address [address] [place] [phone] Phone Care Team Providers Care Tractor Operator Battery Name Role Phone KENNETH RICO DPM Attending Unavailable PARESH WATT Primary Unavailable Social History Type Status Start Date End Date Code Code Syst em Smoking History Never smoker (Never Smoked) 256010686 SNOMED CT Sex Male Hospital Discharge Instructions Should you have any questions prior to discharge, please contact a member of your healthcare team. If you have left the hospital and have any questions, please contact your primary care physician. Reason For Referral No Data Found Procedures Procedure Name Date Status Code Code Syste m Paring/Cutting, Benign Hyper keratotic Lesion; Single Lesion 05/29/2021 completed 81806 CPT Plan of Treatment Exposure 07/19/2020 PSG NIGHT 10/15/2022 Encounters Encounter Diagnosis Start Date Code Code Sys tem Plantar fascial fibromatosis 05/29/2021 SNOMED-CT Personal Care Team Section Performer Name Performer Role Active Date Inactive Da mc
--- OUTSIDE RECORDS SUMMARY | 2024-03-27 17:29 | XMS_ITS ---
Author Organization Unknown Address [address] [place] [phone] Phone Care Team Providers Care Technician Chemical Cleaning Name Role Phone JEREMY Ferrera Attending Unavailable Social History Type Status Start Date End Date Code Code Syst em Smoking History Never smoker (Never Smoked) 866642861 SNOMED CT Sex Male Hospital Discharge Instructions Should you have any questions prior to discharge, please contact a member of your healthcare team. If you have left the hospital and have any questions, please contact your primary care physician. Reason For Referral No Data Found Plan of Treatment Exposure 07/19/2020 PSG NIGHT 10/15/2022 Encounters Encounter Diagnosis Start Date Code Code Sys tem Refusal of treatment by patient 08/31/2021 [id number] SNOMED-CT Personal Care Team Section Performer Name Performer Role Active Date Inactive Da te
--- OUTSIDE RECORDS SUMMARY | 2024-03-27 17:29 | XMS_ITS ---
Author Organization Unknown Address [address] [place] [phone] Phone Care Team Providers Care Hand Rigger Name Role Phone RICKY PERALTA Attending Unavail able PARESH Marie Primary Unavailable Social History Type Status Start Date End Date Code Code Syst em Smoking History Never smoker (Never Smoked) 862113210 SNOMED CT Sex Male Hospital Discharge Instructions [...] Code Code Sys tem Obstructive sleep apnea (adult) (pediatric) 10/15/2022 SNOMED-CT Personal Care Team Section Performer Name Performer Role Active Date Inactive Da te
--- OUTSIDE RECORDS SUMMARY | 2024-03-27 17:29 | XMS_ITS | Continuity of Care Document ---
Author Organization [facility] Address [address] [place] [address] Care Team Providers Care Hydrologist Name Role Phone [facility] Urologist ALIDA YBARRA Commercial Fisher [phone] SERENA MELENDREZ Glass Edger Assessment No assessment recorded. Plan of Treatment Reminders Order Date Submit Date Provider Last Modified By Organization Details Last Modified Time Details Appointments Nurse Visit 20 2023 11:00A M [place] [facility] Not available Not available Not available Follow Up 20 2023 10:40A M JESSIE VELASCO, Not available Not available Not available Lab venipunct ure 2023 024 [facility] (Registration ), [address] [place] [address] [place], [address], 03/27/2024 11:22:24 Referral None recorded. Procedures None recorded. Surgeries None recorded. Imaging None recorded. Medication Orders None recorded. Patient TargetsNo targets recorded. Patient InstructionsNo instructions recorded. Reason for Referral Glass Edger Referral for L esion of skin of [...] Code Type: ICD-10; MD J[address], [place], [address] , [facility] 4 20:04:33 Insect bite, nonvenomous, of back Completed 201407/23/2015 Problem Code: S20.462A; Problem Code Type: ICD-10; Not Available [facility] 3 05:10:25 Cough variant asthma Completed 201512/08/2015 Problem Code: J45.991; Problem Code Type: ICD-10; Not Available [facility] 3 05:10:25 Cough Completed 201501/07/2016 12/18/2015 - Comments only - 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 DIRECTOR [employer] - finishing his prednisone taper- feels much better, no further cough, no fever; doing well Problem Code: R05; Problem Code Type: ICD-10; Not Available [facility] 3 05:10:25 Nodule on toe Completed 201504/21/2016 Not Available [facility] 3 05:10:25 Erectile dysfunction Active 2015 Problem Code: F52.21; Problem Code Type: ICD-10; MD [address], [place], [address] , [facility] 4 20:04:33 Cardiac arrhythmia Completed 201712/17/2017 Problem Code: I49.9; Problem Code Type: ICD-10; Not Available [facility] 3 05:10:25 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 Problem Code: E11.40; Problem Code Type: ICD-10; MD [address], [place], [address] , [facility] 4 20:04:32 Chronic kidney disease stage 3 Active [address], [place], [address] , [facility] 4 20:04:32 Atrial premature complex Active 2018 Problem Code: I49.1; Problem Code Type: ICD-10; MD Jerald PAZ [address], [address] 4 20:04:32 Diastasis of muscle Active 202012/19/2020 - Comments only - Aleida Sims APRN - Explained pathophysio logy, weight loss, printed exercises given out Problem Code: M62.08; Problem Code Type: ICD-10; MD Jerald [address], [place] [address] , [facility] 4 20:04:32 Raynaud's disease Active 2020 Problem Code: I73.00; Problem Code Type: ICD-10; MD Jerald [address], [place] [address] , [facility] 4 20:04:32 Atherosclerosis of coronary artery without angina pectoris Active 2020 Problem Code: I25.10; Problem Code Type: ICD-10; MD Jerald PAZ [address], [place] [address] , [facility] 4 20:04:32 Aortic stenosis, non-rheumatic Active 2020 Problem Code: I35.0; Problem Code Type: ICD-10; MD Jerald PAZ Dr, [address] 4 20:04:32 Torin hematuria Active 2021 Problem Code: R31.0; Problem Code Type: ICD-10; MD Jerald PAZ Dr, [address] 4 20:04:32 Atrial flutter Active 2021 Problem Code: I48.92; Problem Code Type: ICD-10; MD Jerald PAZ Dr, [facility] [address] , [facility] 4 20:04:32 Right Achilles tendinitis Active 2022 Problem Code: M76.61; Problem Code Type: ICD-10; MD Jerald PAZ Dr, [address] 4 20:04:32 Dupuytren's disease of palm Active 2022 Problem Code: M72.0; Problem Code Type: ICD-10; MD Jerald PAZ Dr, [address] 4 20:04:32 Incoordination Active 2022 Problem Code: R27.9; Problem Code Type: ICD-10; MD Jerald PAZ Dr, [facility] [id number] [place] [address] 4 20:04:32 Hyperlipidemia Active 2005 Problem Code: E78.5; Problem Code Type: ICD-10; MD Jerald PAZ Dr, [facility] [id number] [place] [address] 4 20:04:32 Type 2 diabetes mellitus without complication Active 2008 Problem Code: E11.9; Problem Code Type: ICD-10; MD Jerald PAZ Dr, [facility] [address] 4 20:04:32 Acute non-ST segment elevation myocardial infarction Completed 202006/01/2023 Problem Code: I21.4; Problem Code Type: ICD-10; Not Available [facility] 3 05:10:28 Heart murmur Completed 202008/31/2021 Problem Code: R01.1; Problem Code Type: ICD-10; Not Available [facility] 3 05:10:28 Hypertensive disorder Completed 200806/01/2023 Not Available [facility] 3 05:10:28 Blood in urine Completed 202101/14/2022 Problem Code: R31.9; Problem Code Type: ICD-10; Not Available [facility] 3 05:10:28 Fatigue Completed 202109/13/2022 Problem Code: R53.83; Problem Code Type: ICD-10; Not Available [facility] 3 05:10:28 Type 2 diabetes mellitus Completed 200806/01/2023 Not Available [facility] 3 05:10:29 Exposure to communicable disease Completed 201908/21/2020 Problem Code: Z20.828; Problem Code Type: ICD-10; Not Available [facility] 3 05:10:29 Obstructive sleep apnea syndrome Active [address], [facility] [address] , [facility] 4 20:04:46 Microalbuminuri a Active [address], [facility] [address] , [facility] 4 20:06:38 Cobalamin deficiency Active [address], [facility] [address] , [facility] 4 11:30:45 Paroxysmal atrial fibrillation Active 2023 Kaitlin Stancliff null, [facility] 4 15:41:08 Multiple actinic keratoses Active [address], [facility] [address] , [facility] 4 14:51:29 Basal cell carcinoma of skin Active [address], [facility] [address] , [facility] 4 14:54:42 Notes:*Problem Name: Candida malcolm *ICD-10 Codes: *Problem Status: inactive *Comments: *Note Date: 06/03/2014 Problem Notes None recorded. Medical Equipment None Reported. Allergies Allergen ID Allergen Name Allergen Category Reaction Reaction Severity Criticality Documentation Date Start Date Code Code System Note Provider Name and Address Organization Details Recorded Time 51854 Product containin g beta adrenergi c receptor antagonis t (product) medicatio n other moderate Not available 12/19/20232022 45494 009 SNOMED Fatig ue, rich cardi a Kaitlin beltrán, [facility] 4 15:40:54 Medications Name Sig Start Date [...] 09/30/22 -PT refuses- cancelle d rx at [facility]- keeping in med list [facility] Not Available Not Available Not Available Trulicity [...] Available Not Available Not Avai lable Vitals None Recorded Social History Question Answer Notes LastModified by Organizat ion Details LastModified Time Tobacco Smoking Status Never Smoker Salena Zimmer LPN null, [place] - [facility]. 02/24/2024 14:36:00 What Was The Date Of Your Most Recent Tobacco Screening? 02/24/2024 [email or web address] Information not available 02/24/2024 Sex: Male Functional [...] 1 brother, 3 sisters; 1 w. [facility] aorta(?) - believes his mother had this condition Children: 3, all well and in good health. Medical History No medical history recorded. Immunizations Vaccine Type Date Status Provider Name and Address Organization Details Recorded Time Td (adult), 5 Lf tetanus toxoid, preservative free, adsorbed 10/14/2016 completed Not Available [facility] 07/15/2023 05:09:59 zoster live 08/04/2012 completed Not Available [facility] 07/15/2023 05:09:59 Pneumococcal conjugate PCV 13 06/18/2016 completed Not Available [facility] 07/15/2023 05:09:59 Td(adult) unspecified formulation 05/16/2006 completed Not Available [facility] 07/15/2023 05:09:59 Td(adult) unspecified formulation 07/04/2006 completed Not Available [facility] 07/15/2023 05:09:59 Influenza, split virus, quadrivalent, preservative 05/25/2017 completed Not Available [facility] 07/15/2023 05:09:59 Influenza, split virus, quadrivalent, preservative 07/07/2018 completed Not Available [facility] 07/15/2023 05:10:00 Influenza, MDCK, quadrivalent, PF 08/08/2019 completed Not Available [facility] 07/15/2023 05:10:00 Influenza, high-dose, quadrivalent, PF 05/17/2022 completed Not Available [facility] 07/15/2023 05:10:00 COVID-19, mRNA, LNP-S, PF, 100 mcg/0.5mL dose or 50 mcg/0.25mL dose 12/25/2021 completed Not Available [facility] 07/15/2023 05:10:00 COVID-19, mRNA, LNP-S, bivalent, PF, 30 mcg/0.3 mL dose 01/12/2023 completed Not Available [facility] 07/15/20 05:10:00 COVID-19, mRNA, LNP-S, bivalent, PF, 30 mcg/0.3 mL dose 05/21/2022 completed Not Available [facility] 07/15/20 05:10:01 pneumococcal polysaccharide PPV23 05/23/2020 completed Not Available [facility] 2022 05:10:01 pneumococcal polysaccharide PPV23 08/04/2012 completed Not Available [facility] 2022 05:10:01 yellow fever live 05/16/2006 completed Not Available [facility] 07/15/2023 05:10:01 Hep A, unspecified formulation 05/16/2006 completed Not Available [facility] 07/15/2023 05:10:01 Hep A, unspecified formulation 07/04/2006 completed Not Available [facility] 07/15/2023 05:10:01 polio, unspecified formulation 05/16/2006 completed Not Available [facility] 07/15/2023 05:10:02 polio, unspecified formulation 07/04/2006 completed Not Available [facility] 07/15/2023 05:10:02 typhoid, unspecified formulation 05/16/2006 completed Not Available [facility] 07/15/2023 05:10:02 Influenza, high-dose, quadrivalent, PF 07/11/2023 completed Not Available [facility] 09/16/2023 05:30:50 COVID-19, mRNA, LNP-S, PF, chayo-sucrose, 30 mcg/0.3 mL 07/11/2023 completed Not Available [facility] 09/16/2023 05:30:51 Past Encounters Encounter ID Performer Location Encounter Start Date Encounter Closed Date Diagnosis/Indication Diagnosis SNOMED-CT Code [id number] Salena Zimmer LPN [address] [address] 03/27/2024 10:35:32 03/27/2024 11:09:09 Essential hypertension [id number] Health Concerns Section Related Observation LastModified by Organization Detai ls LastModified Time None Recorded Concern Status LastModified by Organization Details LastModified Time None Recorded Payers Encounter Date Sequence Insurance Name Policy Number Policy Rico Covered Member ID Rico Member ID Guarantor Name 03/27/2024 2 [place] [employer] Ralph Garnica [id number] Ralph Garnica 03/27/2024 1 [id number]) Ralphrubén Garnica [id number] Ralphrubén Garnica
--- OUTSIDE RECORDS SUMMARY | 2024-03-27 17:29 | XMS_ITS ---
Author Organization Unknown Address [address] [place] [phone] Phone Care Team Providers Care Grad Intern Name Role Phone OBED Malik Attending Unavailable PARESH Marie Primary Unavailable Social History Type Status Start Date End Date Code Code Syst em Smoking History Never smoker (Never Smoked) [id number] SNOMED CT Sex Male Hospital Discharge Instructions Should you have any questions prior to discharge, please contact a member of your healthcare team. If you have left the hospital and have any questions, please contact your primary care physician. Reason For Referral No Data Found Plan of Treatment Exposure 07/19/2020 [facility] NIGHT 10/15/2022 Encounters Encounter Diagnosis Start Date Code Code Sys tem Snoring 05/19/2022 [id number] SNOMED-CT Personal Care Team Section Performer Name Performer Role Active Date Inactive Da te
--- OUTSIDE RECORDS SUMMARY | 2024-03-27 17:29 | XMS_ITS ---
Author Organization Unknown Address [address] [place] [phone] Phone Care Team Providers Care Group Billing Coordinator Name Role Phone KIKI Dietrich Attending Unavailable PARESH Marie Primary Unavailable Social History Type Status Start Date End Date Code Code Syst em Smoking History Never smoker (Never Smoked) [id number] SNOMED CT Sex Male Hospital Discharge Instructions Should you have any questions prior to discharge, please contact a member of your healthcare team. If you have left the hospital and have any questions, please contact your primary care physician. Reason For Referral No Data Found Plan of Treatment Exposure 07/19/2020 PSG NIGHT 10/15/2022 Encounters Encounter Diagnosis Start Date Code Code Sys tem 05/24/2022 [id number] SNOMED-CT Personal Care Team Section Performer Name Performer Role Active Date Inactive Da te
== END 2024-03-27 17:19 | disposition home or self-care (01) ==
LOC: NCHCN 17:18
PROVIDERS: PCP Internal Medicine; Visit Provider Internal Medicine
DX: N18.30 Chronic kidney disease, stage 3 unspecified (principal); E11.9 Type 2 diabetes mellitus without complications; R79.89 Other specified abnormal findings of blood chemistry
CPT/HCPCS: 80053; 80061; 85027; 83036

== ENCOUNTER 2025-02-20 15:58 | Outpatient (REF) | payer OTHER, MEDICARE, SELFPAY ==
[2025-02-20 15:54] LABS: HCT 46.1 % (40.0-50.0); HGB 15.2 g/dL (13.5-17.5); MCH 29.5 pg (27.0-33.0); MCV 90 fL (80-95); MPV 9.7 fL (8.0-11.0); Platelet Count 220 10^3/uL (130-400); RBC 5.15 10^6/uL (4.36-5.78); RDW 13.6 % (11.8-14.1); RDW-SD 44.5 fL; WBC 4.88 10^3/uL (4.4-10.8)
[2025-02-20 16:30] LABS: Hemoglobin A1C 6.1 % (<5.7)
[2025-02-20 16:59] LABS: ALT 33 U/L (16-63); AST 25 U/L (15-37); Alkaline Phosphatase 115 U/L (46-116); Anion Gap 6.9 mmol/L (3-11); BUN 23 mg/dL (7-18); Bilirubin, Total 0.5 mg/dL (0.2-1.0); CO2 29.1 mmol/L (21.0-32.0); CREATININE 1.3 mg/dL (0.70-1.30); Calcium 9.4 mg/dL (8.5-10.1); Calculated LDL 72 mg/dL (<100); Chloride 102 mmol/L (98-107); Cholesterol 141 mg/dL (<200); Estimated GFR 57.65 (mL/min/1.73m2); Glucose 115 mg/dL (74-106); HDL Cholesterol 49 mg/dL (>or=40); Potassium 4.9 mmol/L (3.5-5.1); Sodium 138 mmol/L (136-145); Total Protein 7.4 g/dL (6.4-8.2); Triglyceride 103 mg/dL (<150)
== END 2025-02-20 15:59 | disposition home or self-care (01) ==
LOC: NCHCN 15:58
PROVIDERS: PCP Internal Medicine; Visit Provider Internal Medicine
DX: N18.30 Chronic kidney disease, stage 3 unspecified (principal)
CPT/HCPCS: 80053; 80061; 85027; 83036

== ENCOUNTER 2025-02-27 09:51 | Outpatient (REF) | payer OTHER, MEDICARE, SELFPAY ==
[2025-02-27 15:30] LABS: COMMENT (LAB VIEW ONLY) 140.59 mg/dL; Microalb ug/mg Crea 52.5 ug/mg Cr
== END 2025-02-27 09:52 | disposition home or self-care (01) ==
LOC: NCHCN 09:51
PROVIDERS: PCP Internal Medicine; Visit Provider Internal Medicine
DX: E11.9 Type 2 diabetes mellitus without complications (principal)
CPT/HCPCS: 82043; 82570